=== PATIENT | male | born 1930 | race Caucasian/White ===

== ENCOUNTER → 2017-04-09 | Outpatient (CLI) | payer MEDICARE ==
--- NOTE | 2017-04-09 14:34 | BD ---
EXAMINATION TYPE: MG DEXA axial skeleton. DATE OF EXAM: 04/09/2017 COMPARISON: NONE CLINICAL HISTORY: Compression fracture per order. Height: 5 FT 5 3/4 Weight: 150 FRAX RISK QUESTIONS: Alcohol (3 or more units per day): NO Family History (Parent hip fracture): NO Glucocorticoids (More than 3mos): NO (Ex: prednisone, prednisolone, methylprednisolone, dexamethasone, and hydrocortisone). History of Fracture in Adulthood: YES Secondary Osteoporosis: 1. Type 1 Diabetes: NO 2. Hyperthyroidism: NO 3. Menopause before 45: NA 4. Malnutrition: NO 5. Chronic liver disease: NO Rheumatoid Arthritis: NO Current Tobacco Use: NO RISK FACTORS HISTORY OF: Spine Fracture: LOWER LUMBAR When: 2017 Surgery to Spine/Hip(right/left)/Wrist (right/left): YES When: 2016 HE STATES THEY PUT CEMENT IN LUMBAR AREA DONE IN [place] OCTOBER 2016 Active: YES Lost more than 2 inches in height since high school: YES MEDICATIONS: Additional Medications: BLOOD THINNER, INHALER FOR COPD Additional History: EXAM MEASUREMENTS: Bone mineral density about the R hip (g/cm2): 0.614 Bone mineral density about the L hip (g/cm2): 0.638 T Score values are as follows: -----R Neck: -3.0 -----L Neck: -2.9 -----R Total: -2.2 -----L Total: -1.7 BASELINE IMPRESSION: Osteoporosis (T Score less than -2.5) as noted by T Score values at the femoral neck level in both hi ps. There is increased fracture risk and therapy is usually indicated based on age. Re-Screen 1-2 [email or web address] NOTE: T-SCORE=SD OF THE YOUNG ADULT MEAN.
== END | disposition home or self-care (01) ==
LOC: RADBDWWP 13:13
PROVIDERS: ATTEND Family Medicine
DX: M81.0 Age-related osteoporosis without current pathological fracture (principal)
CPT/HCPCS: 77080

== ENCOUNTER 2017-05-20 16:25 | Inpatient (IN) | payer MEDICARE ==
[2017-05-20] MEDS ORDERED: SODIUM CHLORIDE 0.9% 1,000 ML IV STA (16:59)
[2017-05-20] MEDS ORDERED: IPRATROPIUM-ALBUTEROL 3 ML NEB INHALATION STA (16:59)
--- NOTE | 2017-05-20 17:05 | ED ---
Chest Pain HPI - General Chief Complaint: Chest Pain Stated Complaint: chest pain/chills Time Seen by Provider: 05/20/17 16:46 Source: patient, family, RN notes reviewed Mode of arrival: wheelchair Limitations: no limitations - History of Present Illness Initial Comments: This 86-year-old male who presents complains of shaking body aches cough shortness of breath cough of yellow and creamy colored phlegm and fever. He does A. fib was acting up as he was tachycardic. He had some repeat anterior chest pain that is resolved now. He has similar symptoms 4 days ago but they resolve the. He's had decreased oral intake. He denies any focal weakness. MD Complaint: chest pain, other - Related Data Home Medications Medication Instructions Recorded Confirmed Fluticasone/Salmeterol [Advair 1 puff INHALATION RT-BID 02/28/14 05/20/17 250-50 Diskus] Aspirin 81 mg PO Q72H 06/01/15 05/20/17 Apixaban [Eliquis] 5 mg PO BID 05/20/17 05/20/17 Allergies Allergy/AdvReac Type Severity Reaction Status Date / Time codeine Allergy Intermediate Hallucinati Verified 05/20/17 17:01 ons prednisone AdvReac agitated Verified 05/20/17 17:01 Review of Systems ROS Statement: Those systems with pertinent positive or pertinent negative responses have been documented in the HPI. ROS Other: All systems not noted in ROS Statement are negative. EKG Findings - EKG Results: EKG: interpreted by ERMD (Sinus tachycardia rate of 108 PVCs PACs noted.. Interval 172 QRS 60 QT since QTC 334/447) Past Medical History Past Medical History: Atrial Fibrillation, Cancer, COPD Additional Past Medical History / Comment(s): hypotension, , BASAL CELL SKIN CA , UTI,gastric ulcer History of Any Multi-Drug Resistant Organisms: None Reported Past Surgical History: Appendectomy, Cholecystectomy, Heart Catheterization, Pacemaker Additional Past Surgical History / Comment(s): MICHEAL CATARACTS, ULCER SX.HEMORROID SX, HAD DUAL PACEMAKER IMPLANTED (SICK SINUS SYNDROME,AV NODE DISEAE,TACHYBRADY SYNDROME. Past Anesthesia/Blood Transfusion Reactions: No Reported Reaction Type of Cardiac Device: Permanent Pacemaker Device Placement Date:: 2013 Past Psychological History: No Psychological Hx Reported Smoking Status: Former smoker Past Alcohol Use History: Rare Past Drug Use History: None Reported - Past Family History Father Family Medical History: CVA/TIA Additional Family Medical History / Comment(s): NOT SURE IF HE HAD MINI STROKES OR HEART PROBLEM. DAD AT AGE 82 Mother Family Medical History: Diabetes Mellitus Additional Family Medical History / Comment(s): AT AGE 76 General Exam - General Exam Comments Initial Comments: This is a well-developed well-nourished awake alert oriented 3 male Limitations: no limitations General appearance: alert, in no apparent distress Head exam: Present: atraumatic, normocephalic, normal inspection Eye exam: Present: normal appearance, PERRL, EOMI. Absent: scleral icterus, conjunctival injection, periorbital swelling ENT exam: Present: mucous membranes dry Neck exam: Present: normal inspection. Absent: tenderness, meningismus, lymphadenopathy Respiratory exam: Present: wheezes, accessory muscle use, decreased breath sounds Cardiovascular Exam: Present: tachycardia GI/Abdominal exam: Present: soft, normal bowel sounds. Absent: distended, tenderness, guarding, rebound, rigid Extremities exam: Present: normal inspection, full ROM, normal capillary refill. Absent: tenderness, pedal edema, joint swelling, calf tenderness Back exam: Present: normal inspection Neurological exam: Present: alert, oriented X3, CN II-XII intact Psychiatric exam: Present: normal affect, normal mood Skin exam: Present: warm, dry, intact, normal color. Absent: rash Course Vital Signs 05/20/17 05/20/17 05/20/17 16:28 16:53 17:28 Temperature 102.0 F H Pulse Rate 117 H 120 H Respiratory 20 22 22 Rate Blood Pressure 144/65 157/75 O2 Sat by Pulse 93 L 96 Oximetry 05/20/17 05/20/17 05/20/17 17:39 18:16 19:42 Temperature 100.0 F H 101.3 F H Pulse Rate 138 H 109 H 133 H Respiratory 20 18 Rate Blood Pressure 149/92 140/67 O2 Sat by Pulse 95 91 L Oximetry - Reevaluation(s) Reevaluation #1: 05/20/17 20:22 I did reevaluate patient several occasions he was breathing slightly better but still with diffuse wheezing and diminished breath sounds. Left lower lobe rhonchi. Chest Pain MDM - MDM I did review the imaging is evidence of left lower lobe infiltrate. Patient will be admitted he does have evidence of fever left lower lobe infiltrate COPD exacerbation. Critical Care Time Critical Care Time: Yes Critical Care Time: 35 minutes of critical care time which includes initial presentation with history physical labs x-rays reevaluation of the patient on several occasions for responsive therapy discussion with the patient family discussion with the admitting physician and admission orders and documentation of the above Disposition Clinical Impression: Left lower lobe pneumonia, COPD with exacerbation, Hypoxemia, Febrile illness, acute Disposition: ADMITTED IP TO THIS [facility] Condition: Stable Referrals: Francie Quiñones DO [Primary Care Provider] - 1-2 days
[2017-05-20 17:28] LABS: Basophils % (A) 0 %; CH 29.5; CHCM 34.4; Eosinophils # (A) 0.1 k/uL (0-0.7); Eosinophils % (A) 1 %; HCT 39.6 % (39.0-53.0); HDW 2.66; HGB 13.2 gm/dL (13.0-17.5); Luc # (Auto) 0.13; Luc % (Auto) 2; Lymphocytes # (A) 0.4 k/uL (1.0-4.8); Lymphocytes % (A) 5 %; MCH 28.7 pg (25.0-35.0); MCHC 33.3 g/dL (31.0-37.0); MCV 86.2 fL (80.0-100.0); Mean Platelet Volume 7.6; Monocytes # (A) 0.5 k/uL (0-1.0); Monocytes % (A) 7 %; Neutrophils # (A) 6.1 k/uL (1.3-7.7); Neutrophils % (A) 85 %; RDW 14.1 % (11.5-15.5); WBC 7.1 k/uL (3.8-10.6); WBC (Perox) 8.12
[2017-05-20 17:37] LABS: ALT 29 U/L (21-72); AST 25 U/L (17-59); Alkaline Phosphatase 47 U/L (38-126); Anion Gap 10 mmol/L; Blood Urea Nitrogen 19 mg/dL (9-20); Calcium 8.7 mg/dL (8.4-10.2); Carbon Dioxide 21 mmol/L (22-30); Chloride 103 mmol/L (98-107); Glucose 103 mg/dL (74-99); Magnesium 1.6 mg/dL (1.6-2.3); Non-African American GFR(MDRD) >60 (>60 ml/min/1.73 sqM); Potassium 3.9 mmol/L (3.5-5.1); Sodium 134 mmol/L (137-145); Total Protein 6.5 g/dL (6.3-8.2)
[2017-05-20 17:39] LABS: INR 1.1 (<1.2); Partial Thromboplastin Time 23.5 sec (22.0-30.0); Prothrombin Time 10.6 sec (9.0-12.0)
[2017-05-20 17:50] LABS: Creatine Kinase 65 U/L (55-170)
[2017-05-20] MEDS ORDERED: SODIUM CHLORIDE 0.9% 500 ML IV STA (17:59)
[2017-05-20 18:03] LABS: Creatine Kinase MB 1.1 ng/mL (0.0-2.4); Troponin I <0.012 ng/mL (0.000-0.034)
--- NOTE | 2017-05-20 19:11 | XR ---
EXAMINATION TYPE: XR chest 2V DATE OF EXAM: 05/20/2017 COMPARISON: 07/19/2015 HISTORY: Chest pain TECHNIQUE: Frontal and lateral views of the chest are obtained. FINDINGS: There is coarse interstitial density in both lungs. Heart size is normal. There is slight blunting of costophrenic angles. Thoracic aorta is atheromatous. There is a left axillary pacemaker w ith the lead tips in the right ventricle. There is mild increased density at the left diaphragm. IMPRESSION: Pulmonary fibrotic changes. No gross heart failure. Mild pleural reaction at the lung ba ses. Inspiration is improved compared to last exam. There is mild infiltrate at the left lung base th at could be new compared to last exam.
[2017-05-20] MEDS ORDERED: PNEUMONIA PROTOCOL UTILIZED 1 EACH MISC PO PRN (20:35)
[2017-05-20] MEDS ORDERED: AZITHROMYCIN 500 MG in SODIUM CHLORIDE 0.9% 250 ML IVPB STA (20:35)
--- NOTE | 2017-05-20 20:40 | ED ---
Medical Decision Making - Lab Data Result diagrams: 05/20/17 16:43 05/20/17 16:43 Lab Results 05/20/17 05/20/17 05/20/17 Range/Units 16:43 16:43 16:43 WBC 7.1 (3.8-10.6) k/uL RBC 4.60 (4.30-5.90) m/uL Hgb 13.2 (13.0-17.5) gm/dL Hct 39.6 (39.0-53.0) % MCV 86.2 (80.0-100.0) fL MCH 28.7 (25.0-35.0) pg MCHC 33.3 (31.0-37.0) g/dL RDW 14.1 (11.5-15.5) % Plt Count 171 (150-450) k/uL Neutrophils % 85 % Lymphocytes % 5 % Monocytes % 7 % Eosinophils % 1 % Basophils % 0 % Neutrophils # 6.1 (1.3-7.7) k/uL Lymphocytes # 0.4 L (1.0-4.8) k/uL Monocytes # 0.5 (0-1.0) k/uL Eosinophils # 0.1 (0-0.7) k/uL Basophils # 0.0 (0-0.2) k/uL PT (9.0-12.0) sec INR (<1.2) APTT (22.0-30.0) sec Sodium 134 L (137-145) mmol/L Potassium 3.9 (3.5-5.1) mmol/L Chloride 103 (98-107) mmol/L Carbon Dioxide 21 L (22-30) mmol/L Anion Gap 10 mmol/L BUN 19 (9-20) mg/dL Creatinine 0.85 (0.66-1.25) mg/dL Est GFR (MDRD) Af Amer >60 (>60 ml/min/1.73 sqM) Est GFR (MDRD) Non-Af >60 (>60 ml/min/1.73 sqM) Glucose 103 H (74-99) mg/dL Plasma Lactic Acid Alphonse (0.7-2.0) mmol/L Calcium 8.7 (8.4-10.2) mg/dL Magnesium 1.6 (1.6-2.3) mg/dL Total Bilirubin 2.0 H (0.2-1.3) mg/dL AST 25 (17-59) U/L ALT 29 (21-72) U/L Alkaline Phosphatase 47 (38-126) U/L Total Creatine Kinase 65 (55-170) U/L CK-MB (CK-2) 1.1 (0.0-2.4) ng/mL CK-MB (CK-2) Rel Index 1.7 Troponin I <0.012 (0.000-0.034) ng/mL NT-Pro-B Natriuret Pep pg/mL Total Protein 6.5 (6.3-8.2) g/dL Albumin 3.6 (3.5-5.0) g/dL Influenza Type A RNA (Not Detectd) Influenza Type B (PCR) (Not Detectd) 05/20/17 05/20/17 05/20/17 Range/Units 16:43 16:43 16:43 WBC (3.8-10.6) k/uL RBC (4.30-5.90) m/uL Hgb (13.0-17.5) gm/dL Hct (39.0-53.0) % MCV (80.0-100.0) fL MCH (25.0-35.0) pg MCHC (31.0-37.0) g/dL RDW (11.5-15.5) % Plt Count (150-450) k/uL Neutrophils % % Lymphocytes % % Monocytes % % Eosinophils % % Basophils % % Neutrophils # (1.3-7.7) k/uL Lymphocytes # (1.0-4.8) k/uL Monocytes # (0-1.0) k/uL Eosinophils # (0-0.7) k/uL Basophils # (0-0.2) k/uL PT 10.6 (9.0-12.0) sec INR 1.1 (<1.2) APTT 23.5 (22.0-30.0) sec Sodium (137-145) mmol/L Potassium (3.5-5.1) mmol/L Chloride (98-107) mmol/L Carbon Dioxide (22-30) mmol/L Anion Gap mmol/L BUN (9-20) mg/dL Creatinine (0.66-1.25) mg/dL Est GFR (MDRD) Af Amer (>60 ml/min/1.73 sqM) Est GFR (MDRD) Non-Af (>60 ml/min/1.73 sqM) Glucose (74-99) mg/dL Plasma Lactic Acid Alphonse 1.6 (0.7-2.0) mmol/L Calcium (8.4-10.2) mg/dL Magnesium (1.6-2.3) mg/dL Total Bilirubin (0.2-1.3) mg/dL AST (17-59) U/L ALT (21-72) U/L Alkaline Phosphatase (38-126) U/L Total Creatine Kinase (55-170) U/L CK-MB (CK-2) (0.0-2.4) ng/mL CK-MB (CK-2) Rel Index Troponin I (0.000-0.034) ng/mL NT-Pro-B Natriuret Pep 444 pg/mL Total Protein (6.3-8.2) g/dL Albumin (3.5-5.0) g/dL Influenza Type A RNA (Not Detectd) Influenza Type B (PCR) (Not Detectd) 05/20/17 Range/Units 17:23 WBC (3.8-10.6) k/uL RBC (4.30-5.90) m/uL Hgb (13.0-17.5) gm/dL Hct (39.0-53.0) % MCV (80.0-100.0) fL MCH (25.0-35.0) pg MCHC (31.0-37.0) g/dL RDW (11.5-15.5) % Plt Count (150-450) k/uL Neutrophils % % Lymphocytes % % Monocytes % % Eosinophils % % Basophils % % Neutrophils # (1.3-7.7) k/uL Lymphocytes # (1.0-4.8) k/uL Monocytes # (0-1.0) k/uL Eosinophils # (0-0.7) k/uL Basophils # (0-0.2) k/uL PT (9.0-12.0) sec INR (<1.2) APTT (22.0-30.0) sec Sodium (137-145) mmol/L Potassium (3.5-5.1) mmol/L Chloride (98-107) mmol/L Carbon Dioxide (22-30) mmol/L Anion Gap mmol/L BUN (9-20) mg/dL Creatinine (0.66-1.25) mg/dL Est GFR (MDRD) Af Amer (>60 ml/min/1.73 sqM) Est GFR (MDRD) Non-Af (>60 ml/min/1.73 sqM) Glucose (74-99) mg/dL Plasma Lactic Acid Alphonse (0.7-2.0) mmol/L Calcium (8.4-10.2) mg/dL Magnesium (1.6-2.3) mg/dL Total Bilirubin (0.2-1.3) mg/dL AST (17-59) U/L ALT (21-72) U/L Alkaline Phosphatase (38-126) U/L Total Creatine Kinase (55-170) U/L CK-MB (CK-2) (0.0-2.4) ng/mL CK-MB (CK-2) Rel Index Troponin I (0.000-0.034) ng/mL NT-Pro-B Natriuret Pep pg/mL Total Protein (6.3-8.2) g/dL Albumin (3.5-5.0) g/dL Influenza Type A RNA Not Detected (Not Detectd) Influenza Type B (PCR) Not Detected (Not Detectd) Disposition Clinical Impression: Left lower lobe pneumonia, COPD with exacerbation, Hypoxemia, Febrile illness, acute, Rapid atrial fibrillation Disposition: ADMITTED IP TO THIS HOSP Condition: Stable Referrals: Francie Quiñones DO [Primary Care Provider] - 1-2 days
[2017-05-20] MEDS: SODIUM CHLORIDE 0.9% 1,000 ML IV SCH (20:57)
[2017-05-20] MEDS ORDERED: DILTIAZEM 125 MG in SODIUM CHLORIDE 0.9% 100 ML IV SCH (21:00)
[2017-05-20] MEDS ORDERED: ACETAMINOPHEN TAB 325 MG TAB PO PRN (22:23)
[2017-05-20] MEDS: APIXABAN 5 MG TAB PO SCH (22:52)
[2017-05-20] MEDS: METOPROLOL TARTRATE 25 MG TAB PO SCH (22:52)
[2017-05-20] MEDS: methylPREDNISolone SOD SUCCI 125 MG/2 ML VIAL IV SCH (23:50)
[2017-05-20] MEDS: IPRATROPIUM-ALBUTEROL 3 ML NEB INHALATION SCH (23:57)
[2017-05-21] MEDS: IPRATROPIUM-ALBUTEROL 3 ML NEB INHALATION SCH ×6 (04:23→23:48)
[2017-05-21] MEDS: methylPREDNISolone SOD SUCCI 125 MG/2 ML VIAL IV SCH ×2 (06:21→12:20)
[2017-05-21 06:30] LABS: Glucose,Whole Blood 164 mg/dL (75-99)
[2017-05-21] MEDS: SODIUM CHLORIDE 0.9% 1,000 ML IV SCH (06:48)
[2017-05-21] MEDS: INSULIN LISPRO (humaLOG) 300 UNIT/3 ML VIAL SQ SCH ×4 (06:49→21:33)
--- NOTE | 2017-05-21 07:04 | XR ---
EXAMINATION TYPE: XR chest 2V DATE OF EXAM: 05/21/2017 COMPARISON: 05/20/2017 HISTORY: Pneumonia and shortness of breath TECHNIQUE: Frontal and lateral views of the chest are obtained. FINDINGS: There is improved aeration of the left lung base with streak-like linear subsegmental atel ectasis remaining at the lung bases and platelike horizontally oriented linear right lower lung atele ctasis. Findings are superimposed upon pulmonary hyperinflation, increased anterior posterior diamete r chest and flattening of the diaphragms compatible with underlying COPD. There is generalized osseous demineralization and vertebroplasty change of a lower thoracic vertebral body. Calcific tendinitis is noted of the right rotator cuff. No pleural effusion, focal consolidati on or pneumothorax. Dual lead left-sided cardiac device is stable as is the nonenlarged cardiac silho uette. IMPRESSION: 1. Improved aeration of the left lung base with minimal residual left basilar subsegmental atelectasi s and right basilar atelectasis. 2. Radiographic sequela of COPD.
[2017-05-21] MEDS: APIXABAN 5 MG TAB PO SCH ×2 (09:02→21:32)
[2017-05-21] MEDS: METOPROLOL TARTRATE 25 MG TAB PO SCH ×2 (09:02→21:32)
--- NOTE | 2017-05-21 09:11 | P.CRDCN ---
History of Present Illness Consult date: 05/21/17 Chief complaint: cough History of present illness: this is a pleasant 86-year-old gentleman who sees Dr. Matias as an outpatient with a past medical history significant for permanent pacemaker implantation as well as atrial fibrillation and COPD presented to the hospital not feeling well. The patient was doing some work on his furnace at the basement at home. Subsequently he was experiencing fever and chills associated with cough productive of colored sputum. He did not have any symptoms of chest pain or chest discomfort. No dizziness or lightheadedness. No syncope. The patient was admitted to the hospital with pneumonia/COPD and he is on antibiotic. We get involved in the care of the patient because he went into sinus tachycardia when he presented but he was febrile at that time. Currently the patient has been maintaining normal sinus mechanism and currently is on metoprolol by mouth. Past Medical History Past Medical History: Atrial Fibrillation, COPD Additional Past Medical History / Comment(s): hypotension, , BASAL CELL SKIN CA , UTI,gastric ulcer History of Any Multi-Drug Resistant Organisms: None Reported Past Surgical History: Appendectomy, Cholecystectomy, Heart Catheterization, Pacemaker Additional Past Surgical History / Comment(s): MICHEAL CATARACTS, ULCER SX.HEMORROID SX, HAD DUAL PACEMAKER IMPLANTED (SICK SINUS SYNDROME,AV NODE DISEAE,TACHYBRADY SYNDROME. Past Anesthesia/Blood Transfusion Reactions: No Reported Reaction Type of Cardiac Device: Permanent Pacemaker Device Placement Date:: 2013 Past Psychological History: No Psychological Hx Reported Additional Psychological History / Comment(s): Pt resides ith his spouse. He uses a cane prn-especially at nite. wn meds. takes care of medications they have visiting nurse come to the house Smoking Status: Former smoker Past Alcohol Use History: Rare Additional Past Alcohol Use History / Comment(s): STARTED SMOKING AT AGE 22 SMOKED 1 PPD. HAD QUIT ONCE FOR 1O YEARS THEN RESTARTED AFTER OF SON, QUIT 1999 Past Drug Use History: None Reported - Past Family History Father Family Medical History: CVA/TIA Additional Family Medical History / Comment(s): NOT SURE IF HE HAD MINI STROKES OR HEART PROBLEM. DAD AT AGE 82 Mother Family Medical History: Diabetes Mellitus Additional Family Medical History / Comment(s): AT AGE 76 Medications and Allergies Home Medications Medication Instructions Recorded Confirmed Type Fluticasone/Salmeterol [Advair 1 puff INHALATION RT-BID 02/28/14 05/20/17 History 250-50 Diskus] Aspirin 81 mg PO Q72H 06/01/15 05/20/17 History Apixaban [Eliquis] 5 mg PO BID 05/20/17 05/20/17 History Allergies Allergy/AdvReac Type Severity Reaction Status Date / Time codeine Allergy Intermediate Hallucinati Verified 05/20/17 17:01 ons prednisone AdvReac agitated Verified 05/20/17 17:01 Physical Exam Vitals: Vital Signs Temp Pulse Pulse Resp BP BP Pulse Ox 05/21/17 07:51 68 05/21/17 07:38 68 05/21/17 04:33 64 05/21/17 04:24 64 05/21/17 04:00 97.4 F L 63 16 100/69 94 L 05/21/17 00:00 100.1 F H 78 16 84/48 92 L 05/20/17 21:00 113 H 18 05/20/17 20:57 99.1 F 121 H 18 113/63 94 L 05/20/17 20:53 101.1 F H 113 H 16 124/59 93 L 05/20/17 20:35 93 L 05/20/17 19:42 101.3 F H 133 H 18 140/67 91 L 05/20/17 18:16 100.0 F H 109 H 20 149/92 95 05/20/17 17:39 138 H 05/20/17 17:28 120 H 22 157/75 96 05/20/17 16:53 22 05/20/17 16:28 102.0 F H 117 H 20 144/65 93 L Intake and Output 05/20/17 05/21/17 05/21/17 22:59 06:59 14:59 Intake Total 800 200 Balance 800 200 Intake: Intake, IV Titration 800 Amount Sodium Chloride 0.9% 1, 800 000 ml @ 75 mls/hr IV . [id number] STA Rx#:[id number] Oral 200 Other: Voiding Method Urinal Urinal Weight 66.678 kg 66.3 kg - Constitutional General appearance: no acute distress - Respiratory Respiratory: bilateral: rhonchi - Cardiovascular Rhythm: regular Heart sounds: normal: S1, S2 Results 05/20/17 16:43 05/20/17 16:43 Cardiac Enzymes 05/20/17 05/20/17 Range/Units 16:43 16:43 AST 25 (17-59) U/L CK-MB (CK-2) 1.1 (0.0-2.4) ng/mL Troponin I <0.012 (0.000-0.034) ng/mL Coagulation 05/20/17 Range/Units 16:43 PT 10.6 (9.0-12.0) sec APTT 23.5 (22.0-30.0) sec CBC 05/20/17 Range/Units 16:43 WBC 7.1 (3.8-10.6) k/uL RBC 4.60 (4.30-5.90) m/uL Hgb 13.2 (13.0-17.5) gm/dL Hct 39.6 (39.0-53.0) % Plt Count 171 (150-450) k/uL Comprehensive Metabolic Panel 05/20/17 Range/Units 16:43 Sodium 134 L (137-145) mmol/L Potassium 3.9 (3.5-5.1) mmol/L Chloride 103 (98-107) mmol/L Carbon Dioxide 21 L (22-30) mmol/L BUN 19 (9-20) mg/dL Creatinine 0.85 (0.66-1.25) mg/dL Glucose 103 H (74-99) mg/dL Calcium 8.7 (8.4-10.2) mg/dL AST 25 (17-59) U/L ALT 29 (21-72) U/L Alkaline Phosphatase 47 (38-126) U/L Total Protein 6.5 (6.3-8.2) g/dL Albumin 3.6 (3.5-5.0) g/dL Current Medications Generic Name Dose Route Start Last Admin Trade Name Freq PRN Reason Stop Dose Admin Acetaminophen 650 mg 05/20/17 22:23 05/20/17 22:52 Tylenol Tab PO 650 mg Q4HR PRN Administration Fever and/ or Mild Pain Albuterol/Ipratropium 3 ml 05/21/17 00:00 05/21/17 07:37 Duoneb 0.5 Mg-3 Mg/3 Ml Soln INHALATION 3 ml RT-Q4H RYAN Administration Apixaban 5 mg 05/20/17 21:00 05/21/17 09:02 Eliquis PO 5 mg BID RYAN Administration Aspirin 81 mg 05/22/17 09:00 Aspirin PO Q72H RYAN Azithromycin 500 mg 05/21/17 21:00 Zithromax PO HS RYAN Ceftriaxone Sodium 1,000 mg/ 50 mls @ 100 mls/hr 05/21/17 21:00 Sodium Chloride IVPB 05/24/17 21:01 Q24H RYAN Sodium Chloride 1,000 mls @ 100 mls/hr 05/20/17 20:45 05/21/17 06:48 Saline 0.9% IV Not Given .Q10H RYAN Insulin Human Lispro 0 unit 05/21/17 07:30 05/21/17 06:49 Humalog SQ 3 unit ACHS RYAN Administration Protocol Methylprednisolone Sodium Succinate 60 mg 05/21/17 00:00 05/21/17 06:21 Solu-Medrol IV 60 mg Q6HR RYAN Administration Metoprolol Tartrate 25 mg 05/20/17 22:30 05/21/17 09:02 Lopressor PO 25 mg BID RYAN Administration Miscellaneous Information 1 each 05/20/17 20:35 Pneumonia Protocol Utilized PO ONCE PRN Per Protocol Intake and Output 05/20/17 05/21/17 05/21/17 22:59 06:59 14:59 Intake Total 800 200 Balance 800 200 Intake: Intake, IV Titration 800 Amount Sodium Chloride 0.9% 1, 800 000 ml @ 75 mls/hr IV . [id number] STA Rx#:[id number] Oral 200 Other: Voiding Method Urinal Urinal Weight 66.678 kg 66.3 kg 05/20/17 16:43 05/20/17 16:43 Assessment and Plan Assessment: This is an 86-year-old gentleman with permanent pacemaker implantation and paroxysmal A. fib for patient on anticoagulation presented to the hospital with symptoms of fever, chills, and productive cough. He was tachycardic in sinus tachycardia but currently his heart rate has improved on the current dose of metoprolol. From the cardiovascular standpoint of view, I would continue the metoprolol by mouth. Continue anticoagulation. And continue following up with him. We'll adjust the dose of metoprolol if the heart rate goes fast again. Thank you for allowing us participate in his care
[2017-05-21 11:50] LABS: Glucose,Whole Blood 222 mg/dL (75-99)
--- NOTE | 2017-05-21 13:42 | P.CNPUL ---
History of Present Illness Consult date: 05/21/17 Reason for consult: dyspnea History of present illness: A pleasant 86-year-old male patient who is been having increased cough and chest congestion and production of thick yellowish sputum over the past few days. The patient contacted his primary care physician and he was asked to come in to the hospital for further evaluation. Chest x-ray at time of admission showed questionable limited infiltration of the left lung base and the patient was hospitalized for treatment of an acute pneumonia. He has no change in mental status. No nausea or vomiting. No pleurisy or hemoptysis. No hypotension. No signs of any septicemia. Follow-up chest x-ray from today shows no acute abnormalities. He is on accommodation Rocephin and Zithromax. He is also on systemic steroids. He is known to have COPD. No 70 bronchial asthma. No oxygen dependence. No angina. No swelling lower extremities. Denies having any recurrent pneumonias. No aspiration. He is known to have chronic atrial fibrillation. He is undergone a previous pacemaker insertion also. Review of Systems Constitutional: Reports chills Eyes: denies blurred vision, denies bulging eye, denies decreased vision Ears: deny: ear discharge, earache, tinnitus Ears, nose, mouth and throat: Denies headache, Denies sore throat Cardiovascular: Reports irregular heart beat, Reports rapid heart beat Respiratory: Reports cough, Reports dyspnea, Reports wheezing Gastrointestinal: Denies abdominal pain, Denies diarrhea, Denies nausea, Denies vomiting Musculoskeletal: Denies myalgias Musculoskeletal: absent: ankle pain, ankle stiffness, ankle swelling, as per HPI Integumentary: Denies pruritus, Denies rash Neurological: Denies numbness, Denies weakness Psychiatric: Denies anxiety, Denies depression Endocrine: Denies fatigue, Denies weight change Past Medical History Past Medical History: Atrial Fibrillation, COPD Additional Past Medical History / Comment(s): COPD, chronic atrial fibrillation , 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 History of Any Multi-Drug Resistant Organisms: None Reported Past Surgical History: Appendectomy, Cholecystectomy, Heart Catheterization, Pacemaker Additional Past Surgical History / Comment(s): MICHEAL CATARACTS, ULCER SX.HEMORROID SX, HAD DUAL PACEMAKER IMPLANTED (SICK SINUS SYNDROME,AV NODE DISEAE,TACHYBRADY SYNDROME. Past Anesthesia/Blood Transfusion Reactions: No Reported Reaction Type of Cardiac Device: Permanent Pacemaker Device Placement Date:: 2013 Past Psychological History: No Psychological Hx Reported Additional Psychological History / Comment(s): Pt resides ith his spouse. He uses a cane prn-especially at nite. wn meds. takes care of medications they have visiting nurse come to the house Smoking Status: Former smoker Past Alcohol Use History: Rare Additional Past Alcohol Use History / Comment(s): STARTED SMOKING AT AGE 22 SMOKED 1 PPD. HAD QUIT ONCE FOR 1O YEARS THEN RESTARTED AFTER OF SON, QUIT 1999 Past Drug Use History: None Reported - Past Family History Father Family Medical History: CVA/TIA Additional Family Medical History / Comment(s): NOT SURE IF HE HAD MINI STROKES OR HEART PROBLEM. DAD AT AGE 82 Mother Family Medical History: Diabetes Mellitus Additional Family Medical History / Comment(s): AT AGE 76 Medications and Allergies Home Medications Medication Instructions Recorded Confirmed Type Fluticasone/Salmeterol [Advair 1 puff INHALATION RT-BID 02/28/14 05/20/17 History 250-50 Diskus] Aspirin 81 mg PO Q72H 06/01/15 05/20/17 History Apixaban [Eliquis] 5 mg PO BID 05/20/17 05/20/17 History Allergies Allergy/AdvReac Type Severity Reaction Status Date / Time codeine Allergy Intermediate Hallucinati Verified 05/20/17 17:01 ons prednisone AdvReac agitated Verified 05/20/17 17:01 Physical Exam Vitals: Vital Signs Temp Pulse Pulse Resp BP BP Pulse Ox 05/21/17 13:29 76 05/21/17 13:15 80 05/21/17 12:00 96.9 F L 72 18 112/57 97 05/21/17 08:00 96.6 F L 75 18 109/56 91 L 05/21/17 07:51 68 05/21/17 07:38 68 05/21/17 04:33 64 05/21/17 04:24 64 05/21/17 04:00 97.4 F L 63 16 100/69 94 L 05/21/17 00:00 100.1 F H 78 16 84/48 92 L 05/20/17 21:00 113 H 18 05/20/17 20:57 99.1 F 121 H 18 113/63 94 L 05/20/17 20:53 101.1 F H 113 H 16 124/59 93 L 05/20/17 20:35 93 L 05/20/17 19:42 101.3 F H 133 H 18 140/67 91 L 05/20/17 18:16 100.0 F H 109 H 20 149/92 95 05/20/17 17:39 138 H 05/20/17 17:28 120 H 22 157/75 96 05/20/17 16:53 22 05/20/17 16:28 102.0 F H 117 H 20 144/65 93 L Intake and Output 05/20/17 05/21/17 05/21/17 22:59 06:59 14:59 Intake Total 800 200 740 Output Total 351 Balance 800 200 389 Intake: Intake, IV Titration 800 500 Amount Sodium Chloride 0.9% 1, 500 000 ml @ 100 mls/hr IV . Q10H RYAN Rx#:[id number] Sodium Chloride 0.9% 1, 800 000 ml @ 75 mls/hr IV . [id number] STA Rx#:[id number] Oral 200 240 Output: Urine 350 Stool 1 Other: Voiding Method Urinal Urinal Urinal # Voids 1 # Bowel Movements 1 Weight 66.678 kg 66.3 kg 66.3 kg Patient Weight 05/22/17 06:59 Weight 66.3 kg The patient is an elderly male, nonacute distress, resting comfortably in bed.Head exam was generally normal. There was no scleral icterus or corneal arcus. Mucous membranes were moist.Neck was supple and without jugular venous distension, thyromegaly, or carotid bruits. Carotids were easily palpable bilaterally. There was no adenopathy. Lung sounds are diminished in the lung bases bilaterally along with some scattered rhonchi. Heart sounds are irregular , positive S1-S2 and there is no significant murmurs appreciated.Abdominal exam revealed normal bowel sounds. The abdomen was soft, non-tender, and without masses, organomegaly, or appreciable enlargement of the abdominal aorta.Examination of the extremities revealed easily palpable radial, femoral and pedal pulses. There was no cyanosis, clubbing or edema.Examination of the skin revealed no evidence of significant rashes, suspicious appearing nevi or other concerning lesions. Neurologically the patient is awake and alert and is no focal neurological deficit at this point. Results - Laboratory Findings CBC and BMP: 05/20/17 16:43 05/20/17 16:43 PT/INR, D-dimer PT 10.6 sec (9.0-12.0) 05/20/17 16:43 INR 1.1 (<1.2) 05/20/17 16:43 Abnormal lab findings: Abnormal Labs 05/20/17 05/20/17 05/21/17 16:43 16:43 06:20 Lymphocytes # 0.4 L Sodium 134 L Carbon Dioxide 21 L Glucose 103 H POC Glucose (mg/dL) 164 H Total Bilirubin 2.0 H 05/21/17 11:34 Lymphocytes # Sodium Carbon Dioxide Glucose POC Glucose (mg/dL) 222 H Total Bilirubin - Diagnostic Findings Chest x-ray: image reviewed Assessment and Plan Assessment: Assessment 1 acute tracheal bronchitis with exacerbation of COPD. Limited left lower lobe pneumonia suspected 2 chronic atrial fibrillation 3 history of tachybradycardia syndrome status post pacemaker insertion 4 basal cell carcinoma of the skin, resected 5 history of peptic ulcer disease Plan Agree on the current management. The patient is stable. He is actually taking well on room air. No signs of any significant respiratory distress. Follow-up chest x-rays clear. Anticipate discharge within the next 24-48 hours and oral antibiotics and the prednisone burst taper. He has been maintained on Advair on outpatient basis as maintenance for COPD. We'll continue to follow.
--- NOTE | 2017-05-21 15:12 | HP ---
HISTORY AND PHYSICAL DATE OF SERVICE: 05/21/2017 CHIEF COMPLAINTS: Fever, chills, shortness of breath. HISTORY OF PRESENT ILLNESS: This 86-year-old gentleman with a past medical history of multiple medical problems including atrial fibrillation, COPD, history of appendectomy, cholecystectomy being followed by Dr. Ortiz in the outpatient setting, not feeling well. On Friday , the patient had history of chills and subsequently patient decided not to come to the hospital, took some aspirin, but patient had fever, cough and some chills also. Yesterday, the patient came to [facility] Emergency room, admitted for further evaluation and treatment. Patient was suspected to have left lower pneumonia. Patient started on broad-spectrum IV antibiotics and patient also had tachycardia which is thought to be atrial fibrillation with _. Subsequently, Cardiology is concerned with the possibility of sinus tach with PVCs at this time. Otherwise, there is no history of any weight loss. No history of any hematochezia or melena, headache , loss of consciousness. Patient is hard of hearing. PAST MEDICAL HISTORY: History of CAD, atrial ablation, COPD, history of basal cell carcinoma of the skin, history of appendectomy, cholecystectomy. MEDICATIONS: Prior to admission include: 1. Advair 250/50 one puff b.i.d. 2. Aspirin 81 mg q.72 hours. 3. Eliquis 5 mg p.o. b.i.d. ALLERGIES: CODEINE and PREDNISONE. FAMILY HISTORY: History of CVA/TIA in the family. SOCIAL HISTORY: History of smoking. No history of current smoke or alcohol intake. REVIEW OF SYSTEMS: ENT: No diminished vision. CARDIOVASCULAR: As mentioned earlier. RESPIRATORY: As mentioned earlier. GI: No nausea. : No dysuria. NERVOUS SYSTEM: No numbness or weakness. ALLERGY/IMMUNOLOGY: No asthma or hayfever. MUSCULOSKELETAL: As mentioned earlier. HEMATOLOGY/ONCOLOGY: No history of anemia. ENDOCRINE: No history of diabetes, hypothyroidism. CONSTITUTIONAL: As mentioned earlier. DERMATOLOGY: Negative. RHEUMATOLOGY: Negative. PSYCHIATRY: As mentioned earlier. PHYSICAL EXAM: Patient is alert and oriented x3. The pulse is 72, blood pressure is 112/51, respiration 18, temperature 98.9, pulse ox 97% on room air. HEENT: Conjunctivae normal, otherwise hearing deficits present. NECK: No lymph node enlargement. No thyroid nodule. CARDIOVASCULAR SYSTEM: S1, S2, muffled. No S3, no S4. RESPIRATORY: Breath sounds diminished at the bases. Bilateral scattered rhonchi , a few crackles also heard. ABDOMEN: Soft, nontender. No mass palpable. LEGS: No edema, no swelling. NERVOUS SYSTEM: Higher functions as mentioned earlier. Moves all four limbs. No focal motor deficits. LYMPHATICS: No lymph node enlargement in neck or axillae. SKIN: No ulcers, rash, bleeding. LABS: CBC within normal limits, sodium 134. Glucose noted. negative. Otherwise, chest x-ray official report shows improved aeration of the left lung base with atelectasis. ASSESSMENT: 1. Acute left lobe pneumonia possibly bronchopneumonia with gram-negative. 2. Chronic obstructive pulmonary disease. 3. Atrial fibrillation. 4. On Eliquis. 5. History of basal cell carcinoma of the skin. 6. History of tachybrady syndrome. 7. History of cholecystectomy. 8. History of appendectomy. 9. History of bilateral cataracts. 10.History of sick sinus syndrome with pacemaker implantation. RECOMMENDATION: In this 86-year-old gentleman who presented with multiple complex medical issues , will monitor the patient closely, continue with the current management and symptomatic treatment. Otherwise, at this time I recommend continue with broad-spectrum IV antibiotics. I would recommend Rocephin and as well as Zithromax combination. Otherwise, monitor the blood sugars. Otherwise, I would also recommend resume the home medications. Guarded prognosis because of multiple complex medical issues. Further recommendations to follow. A copy of this will be forwarded to Dr. Ortiz who is the primary physician. MMDANOL / IJN: [id number] / RITA
[2017-05-21] MEDS: methylPREDNISolone SOD SUCCI 40 MG/ML 1 ML VIAL IV SCH ×2 (16:02→22:58)
[2017-05-21 16:53] LABS: Glucose,Whole Blood 144 mg/dL (75-99)
[2017-05-21] MEDS: SYMBICORT 80-4.5 MCG INHALER INHALATION SCH (20:30)
[2017-05-21] MEDS ORDERED: AZITHROMYCIN 500 MG TAB PO SCH (21:00)
[2017-05-21 21:13] LABS: Glucose,Whole Blood 234 mg/dL (75-99)
[2017-05-22] MEDS: IPRATROPIUM-ALBUTEROL 3 ML NEB INHALATION SCH ×3 (03:07→11:52)
[2017-05-22] MEDS ORDERED: IPRATROPIUM-ALBUTEROL 3 ML NEB INHALATION PRN (03:07)
[2017-05-22 06:23] LABS: Glucose,Whole Blood 177 mg/dL (75-99)
[2017-05-22] MEDS: INSULIN LISPRO (humaLOG) 300 UNIT/3 ML VIAL SQ SCH ×2 (06:26→11:40)
[2017-05-22 07:01] LABS: Basophils % (A) 0 %; CH 29.8; CHCM 34.1; Eosinophils % (A) 0 %; HCT 36.3 % (39.0-53.0); HDW 2.95; HGB 11.9 gm/dL (13.0-17.5); Luc # (Auto) 0.07; Luc % (Auto) 1; Lymphocytes # (A) 0.4 k/uL (1.0-4.8); Lymphocytes % (A) 4 %; MCH 28.9 pg (25.0-35.0); MCHC 32.8 g/dL (31.0-37.0); Mean Platelet Volume 8.1; Monocytes # (A) 0.6 k/uL (0-1.0); Monocytes % (A) 5 %; Neutrophils # (A) 11.2 k/uL (1.3-7.7); Neutrophils % (A) 91 %; RBC 4.12 m/uL (4.30-5.90); RDW 13.3 % (11.5-15.5); WBC 12.4 k/uL (3.8-10.6); WBC (Perox) 12.42
[2017-05-22 07:47] LABS: Anion Gap 10 mmol/L; Blood Urea Nitrogen 21 mg/dL (9-20); Carbon Dioxide 23 mmol/L (22-30); Chloride 105 mmol/L (98-107); Glucose 162 mg/dL (74-99); Non-African American GFR(MDRD) >60 (>60 ml/min/1.73 sqM); Sodium 138 mmol/L (137-145)
[2017-05-22] MEDS: METOPROLOL TARTRATE 25 MG TAB PO SCH (08:11)
[2017-05-22] MEDS: APIXABAN 5 MG TAB PO SCH (08:11)
[2017-05-22] MEDS: methylPREDNISolone SOD SUCCI 40 MG/ML 1 ML VIAL IV SCH (08:11)
[2017-05-22] MEDS: SYMBICORT 80-4.5 MCG INHALER INHALATION SCH (08:30)
[2017-05-22] MEDS ORDERED: ASPIRIN 81 MG PO SCH (09:00)
--- NOTE | 2017-05-22 09:59 | P.PN ---
Progress Note - Text Progress Note Date: 05/22/17 this is a pleasant 86-year-old gentleman who sees Dr. Matias as an outpatient with a past medical history significant for permanent pacemaker implantation as well as atrial fibrillation and COPD presented to the hospital not feeling well. The patient was doing some work on his furnace at the basement at home. Subsequently he was experiencing fever and chills associated with cough productive of colored sputum. He did not have any symptoms of chest pain or chest discomfort. No dizziness or lightheadedness. No syncope. The patient was admitted to the hospital with pneumonia/COPD and he is on antibiotic. We get involved in the care of the patient because he went into sinus tachycardia when he presented but he was febrile at that time. Currently the patient has been maintaining normal sinus mechanism and currently is on metoprolol by mouth. From a cardiovascular standpoint of view, the patient is feeling better and he is hemodynamically stable. He can be discharged home.
[2017-05-22 11:06] VITALS: BMI 23.2
[2017-05-22 11:39] VITALS: BP 125/59; PULSE 73; RESP 18; TEMP 97
[2017-05-22 11:42] LABS: Glucose,Whole Blood 108 mg/dL (75-99)
[2017-05-22] MEDS ORDERED: MULTIVITAMINS, THERA 1 EACH TAB PO SCH (12:00)
--- NOTE | 2017-05-22 15:03 | P.HPIM ---
History of Present Illness patient is a pleasant 64-year-old gentleman was sent in from [place] with the confusion. Patient last drinkwas about 3 days ago patient was admitted to [place] patient drinks too many beers his face. Patient was admitted with the concerns of Wernicke's encephalopathy, patient does not have any ophthalmoplegia but patient does have truncal ataxia patient was on high-dose of thiamine which is appropriate and neurology was consulted. Patient doesn't have any significant withdrawals but quite weak unable to discharge him back to [place] because of his weakness quite unsteady patient is on Ativan withdrawal protocol patient denied any fever, chills, nausea, vomiting Review of Systems REVIEW OF SYSTEMS: CONSTITUTIONAL: No fever, no malaise, no fatigue. HEENT: No recent visual problems or hearing problems. Denied any sore throat. CARDIOVASCULAR: No chest pain, orthopnea, PND, no palpitations, no syncope. PULMONARY: No shortness of breath, no cough, no hemoptysis. GASTROINTESTINAL: No diarrhea, no nausea, no vomiting, no abdominal pain. Normoactive bowel sounds. NEUROLOGICAL: No headaches, as mentioned in HPI HEMATOLOGICAL: Denies any bleeding or petechiae. GENITOURINARY: Denies any burning micturition, frequency, or urgency. MUSCULOSKELETAL/RHEUMATOLOGICAL: Denies any joint pain, swelling, or any muscle pain. ENDOCRINE: Denies any polyuria or polydipsia. The rest of the 14-point review of systems is negative. 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 History of Any Multi-Drug Resistant Organisms: None Reported Past Surgical History: Appendectomy, Cholecystectomy, Heart Catheterization, Pacemaker Additional Past Surgical History / Comment(s): MICHEAL CATARACTS, ULCER SX.HEMORROID SX, HAD DUAL PACEMAKER IMPLANTED (SICK SINUS SYNDROME,AV NODE DISEAE,TACHYBRADY SYNDROME. Past Anesthesia/Blood Transfusion Reactions: No Reported Reaction Type of Cardiac Device: Permanent Pacemaker Device Placement Date:: 2013 Past Psychological History: No Psychological Hx Reported Additional Psychological History / Comment(s): Pt resides ith his spouse. He uses a cane prn-especially at nite. wn meds. takes care of medications they have visiting nurse come to the house Smoking Status: Former smoker Past Alcohol Use History: Rare Additional Past Alcohol Use History / Comment(s): STARTED SMOKING AT AGE 22 SMOKED 1 PPD. HAD QUIT ONCE FOR 1O YEARS THEN RESTARTED AFTER OF SON, QUIT 1999 Past Drug Use History: None Reported - Past Family History Father Family Medical History: CVA/TIA Additional Family Medical History / Comment(s): NOT SURE IF HE HAD MINI STROKES OR HEART PROBLEM. DAD AT AGE 82 Mother Family Medical History: Diabetes Mellitus Additional Family Medical History / Comment(s): AT AGE 76 Medications and Allergies Home Medications Medication Instructions Recorded Confirmed Type Fluticasone/Salmeterol [Advair 1 puff INHALATION RT-BID 02/28/14 05/20/17 History 250-50 Diskus] Aspirin 81 mg PO Q72H 06/01/15 05/20/17 History Apixaban [Eliquis] 5 mg PO BID 05/20/17 05/20/17 History Azithromycin [Zithromax Tri-Ralf] 500 mg PO DAILY #7 tab 05/22/17 Rx Cefuroxime Axetil [Ceftin] 500 mg PO BID #14 tab 05/22/17 Rx Ipratropium-Albuterol Nebulize 3 ml INHALATION RT-QID #120 05/22/17 Rx [Duoneb 0.5 mg-3 mg/3 ml Soln] ampul.neb Metoprolol Tartrate [Lopressor] 25 mg PO BID #60 tab 05/22/17 Rx Multivitamins, Thera [Multivitamin 1 each PO DAILY@1200 #30 tab 05/22/17 Rx (formulary)] predniSONE 10 mg PO DIRECTED #30 tab 05/22/17 Rx Allergies Allergy/AdvReac Type Severity Reaction Status Date / Time codeine Allergy Intermediate Hallucinati Verified 05/20/17 17:01 ons prednisone AdvReac agitated Verified 05/20/17 17:01 Physical Exam Vitals: Vital Signs Temp Pulse Pulse Resp BP Pulse Ox 05/22/17 11:38 97.0 F L 73 18 125/59 94 L 05/22/17 08:43 88 05/22/17 08:32 88 05/22/17 08:00 86 16 05/22/17 06:23 97.8 F 86 16 109/55 92 L 05/21/17 23:58 85 05/21/17 23:48 86 05/21/17 20:43 102 H 05/21/17 20:33 124 H 05/21/17 20:00 98.9 F 101 H 18 111/58 94 L 05/21/17 16:33 84 05/21/17 16:22 88 05/21/17 15:32 98.6 F 77 18 116/58 92 L 05/21/17 15:23 72 18 Intake and Output 05/21/17 05/22/17 05/22/17 22:59 06:59 14:59 Intake Total 480 300 720 Output Total 301 400 Balance 179 300 320 Intake: Oral 480 300 720 Output: Urine 300 400 Stool 1 Other: Voiding Method Urinal Urinal # Voids 1 1 1 # Bowel Movements 1 Weight 67.3 kg 67.3 kg Patient Weight 05/23/17 06:59 Weight 67.3 kg PHYSICAL EXAMINATION: GENERAL: The patient is alert and oriented x3, not in any acute distress. Well developed, well nourished. little bit tremulous HEENT: Pupils are round and equally reacting to light. EOMI. No scleral icterus. No conjunctival pallor. Normocephalic, atraumatic. No pharyngeal erythema. No thyromegaly. CARDIOVASCULAR: S1 and S2 present. No murmurs, rubs, or gallops. PULMONARY: Chest is clear to auscultation, no wheezing or crackles. ABDOMEN: Soft, nontender, nondistended, normoactive bowel sounds. No palpable organomegaly. MUSCULOSKELETAL: No joint swelling or deformity. EXTREMITIES: No cyanosis, clubbing, or pedal edema. NEUROLOGICAL: patient has unstable gait truncal ataxia and weakness SKIN: No rashes. Results CBC & Chem 7: 05/22/17 06:45 05/22/17 06:45 Labs: Abnormal Lab Results - Last 24 Hours (Table) 05/21/17 05/21/17 05/22/17 Range/Units 16:41 21:10 06:20 WBC (3.8-10.6) k/uL RBC (4.30-5.90) m/uL Hgb (13.0-17.5) gm/dL Hct (39.0-53.0) % Neutrophils # (1.3-7.7) k/uL Lymphocytes # (1.0-4.8) k/uL BUN (9-20) mg/dL Glucose (74-99) mg/dL POC Glucose (mg/dL) 144 H 234 H 177 H (75-99) mg/dL 05/22/17 05/22/17 05/22/17 Range/Units 06:45 06:45 11:39 WBC 12.4 H (3.8-10.6) k/uL RBC 4.12 L (4.30-5.90) m/uL Hgb 11.9 L (13.0-17.5) gm/dL Hct 36.3 L (39.0-53.0) % Neutrophils # 11.2 H (1.3-7.7) k/uL Lymphocytes # 0.4 L (1.0-4.8) k/uL BUN 21 H (9-20) mg/dL Glucose 162 H (74-99) mg/dL POC Glucose (mg/dL) 108 H (75-99) mg/dL Microbiology - Last 24 Hours (Table) 05/21/17 09:07 Gram Stain - Preliminary Sputum Sputum Culture - Preliminary 05/20/17 16:43 Blood Culture - Preliminary Blood No Growth after 24 hours Thrombosis Risk Factor Assmnt - Choose All That Apply Each Factor Represents 1 point: Abnormal pulmonary function (COPD) Other Risk Factors: No Other congenital or acquired thrombophilia - If yes, enter type in comment: No Thrombosis Risk Factor Assessment Total Risk Factor Score: 1 Thrombosis Risk Factor Assessment Level: Low Risk Assessment and Plan Plan: #1 alcohol abuse and alcohol withdrawal: Patient on alcohol withdrawal protocol. Last drink was about 3 days ago. #2 possibility of Wernicke's encephalopathy: Neurology was consulted and patient is on high-dose thiamine. #3 hyperchloremia and noniron gap metabolic acidosis secondary to hyperchloremia from IV fluids because of which patient will be switched to half- normal saline. 4 chronic systolic dysfunction, patient had EF of 45% in the past with without any acute exacerbation patient was evaluated cardiology #5 gastroesophageal reflux disease
--- NOTE | 2017-05-22 17:23 | P.DS ---
Providers Date of admission: 05/20/17 20:34 Attending physician: Murali Srinivasan Consults: 05/20/17 20:35 Consult Physician Routine Consulting Provider: Esvin Gould Consult Reason/Comments: COPD and pneumonia Do you want consulting provider notified?: Yes 05/21/17 06:00 Consult Physician Routine Consulting Provider: Sally Hensley Consult Reason/Comments: Increased heart rate Do you want consulting provider notified?: Yes, Notify in am Primary care physician: Francie [facility] Course: 6-year-old gentleman was admitted with the features of possibly bronchopneumonia.. Patient. Patient was treated with steroids patient improved significantly. Patient be discharged in a stable condition with guarded prognosis. On exam vitals stable cardio S1 and S2 normal. Respirator system few scattered rhonchi abdomen soft nontender. Next Final diagnosis 1. Acute left lower lobe pneumonia possibly bronchopneumonia with gram- negative. 2. COPD 3. Atrial fibrillation 4. History of basal cell carcinoma skin Patient Condition at Discharge: Stable Plan - Discharge Summary Discharge Rx Participant: No New Discharge Prescriptions: New Metoprolol Tartrate [Lopressor] 25 mg PO BID #60 tab Multivitamins, Thera [Multivitamin (formulary)] 1 each PO DAILY@1200 #30 tab predniSONE 10 mg PO DIRECTED #30 tab Ipratropium-Albuterol Nebulize [Duoneb 0.5 mg-3 mg/3 ml Soln] 3 ml INHALATION RT-QID #120 ampul.neb Azithromycin [Zithromax Tri-Ralf] 500 mg PO DAILY #7 tab Cefuroxime Axetil [Ceftin] 500 mg PO BID #14 tab Continue Fluticasone/Salmeterol [Advair 250-50 Diskus] 1 puff INHALATION RT-BID Aspirin 81 mg PO Q72H Apixaban [Eliquis] 5 mg PO BID Discharge Medication List Fluticasone/Salmeterol [Advair 250-50 Diskus] 1 puff INHALATION RT-BID 02/28/14 [History] Aspirin 81 mg PO Q72H 06/01/15 [History] Apixaban [Eliquis] 5 mg PO BID 05/20/17 [History] Azithromycin [Zithromax Tri-Ralf] 500 mg PO DAILY #7 tab 05/22/17 [Rx] Cefuroxime Axetil [Ceftin] 500 mg PO BID #14 tab 05/22/17 [Rx] Ipratropium-Albuterol Nebulize [Duoneb 0.5 mg-3 mg/3 ml Soln] 3 ml INHALATION RT -QID #120 ampul.neb 05/22/17 [Rx] Metoprolol Tartrate [Lopressor] 25 mg PO BID #60 tab 05/22/17 [Rx] Multivitamins, Thera [Multivitamin (formulary)] 1 each PO DAILY@1200 #30 tab 09/06 [Rx] predniSONE 10 mg PO DIRECTED #30 tab 05/22/17 [Rx] Follow up Appointment(s)/Referral(s): Duy Matias MD [STAFF PHYSICIAN] - 06/11/17 11:00 am (per pt's previously scheduled appointment) Francie Quiñones DO [Primary Care Provider] - 3 Days (Unable to get through related to "heavy calling." Please call to make appointment) Tio Giron MD [STAFF PHYSICIAN] - 06/11/17 2:00 pm () Ambulatory/Diagnostic Orders: Complete Blood Count w/diff [LAB.AMB] Time Frame: 3 Days, Location: Determined By Patient Patient Instructions/Handouts: COPD (Chronic Obstructive Pulmonary Disease) (DC ) Activity/Diet/Wound Care/Special Instructions: Diet: Cardiac Activity: Limited until follow up Discharge Disposition: HOME SELF-CARE
== END 2017-05-22 13:26 | disposition home or self-care (01) | DRG 178 ==
LOC: EC 16:25 → 6SEL 20:34
PROVIDERS: ADMIT Internal Medicine; ATTEND Internal Medicine
DX: J15.6 Pneumonia due to other Gram-negative bacteria (principal); J44.0 Chronic obstructive pulmonary disease with (acute) lower respiratory infection; E87.2 Acidosis; E87.8 Other disorders of electrolyte and fluid balance, not elsewhere classified; J44.1 Chronic obstructive pulmonary disease with (acute) exacerbation; I48.0 Paroxysmal atrial fibrillation; I25.10 Atherosclerotic heart disease of native coronary artery without angina pectoris; R09.02 Hypoxemia; H91.90 Unspecified hearing loss, unspecified ear; Z79.01 Long term (current) use of anticoagulants; Z79.82 Long term (current) use of aspirin; Z79.51 Long term (current) use of inhaled steroids; Z85.828 Personal history of other malignant neoplasm of skin; Z90.49 Acquired absence of other specified parts of digestive tract; Z87.891 Personal history of nicotine dependence; Z95.0 Presence of cardiac pacemaker; Z98.42 Cataract extraction status, left eye; Z87.11 Personal history of peptic ulcer disease; Z98.41 Cataract extraction status, right eye; Z88.5 Allergy status to narcotic agent; Z88.8 Allergy status to other drugs, medicaments and biological substances
CPT/HCPCS: 36415; 71020; 80048; 80053; 82550; 82553; 83605; 83735; 83880; 84484; 85025; 85610; 85730; 87040; 87070; 87205; 87502; 93005; 94640; 96360; 96361; 99291

== ENCOUNTER → 2017-09-26 | Outpatient (CLI) | payer MEDICARE ==
--- NOTE | 2017-09-26 13:30 | CT ---
EXAMINATION TYPE: CT lumbar spine wo con DATE OF EXAM: 09/26/2017 1:12 PM COMPARISON: NONE HISTORY: Back pain, s/p back surgery CT DLP: 992 mGycm Automated exposure control for dose reduction was used. Unenhanced CT of the lumbar spine was performed. Bone and soft tissue window settings are submitted as well as coronal and sagittal reconstructions. There is a severe compression deformity or fracture of L1 with evidence of previous vertebroplasty. T here is a small amount of vertebroplasty material appear essentially to left within the spinal canal. Due to artifact resolution of the thecal sac and spinal cord is nondiagnostic. Recommend MRI. There is a moderate to severe superior endplate compression fracture L2 and a mild superior endplate compression fracture of L3. Alignment is anatomic. Hypodensity within the liver is too small to characterize. L1-L2: Normal disc space height. No disc herniation protrusion or central stenosis. No facet joint arthropathy. No evidence for foraminal encroachment. L2-L3: Normal disc space height. No disc herniation protrusion or central stenosis. No facet joint arthropathy. No evidence for foraminal encroachment. L3-L4: There is hypertrophic change of the facets and ligamentum flavum with circumferential disc bul ging. Mild bilateral foraminal encroachment. Borderline canal stenosis. L4-L5: Circumferential disc bulging greater paracentrally and laterally to the right with mild to mod erate right foraminal encroachment and mild left foraminal encroachment. Hypertrophic change of the f acet joints are noted and there is borderline to mild central stenosis. L5-S1: Facet arthropathy but no obvious canal stenosis. Neural foramina remain patent. No disc hernia tion. IMPRESSION: 1. Multilevel mild degenerative disc disease with severe complete compression fracture of L1 with manuel dence of previous vertebroplasty. Artifact from vertebral plasty material limits assessment of the sp inal cord. There does appear to be extension of some of the vertebroplasty material into the anterior margin of the spinal canal paracentrally to the left. There is approximately 10% retropulsion which does efface the thecal sac at the L1 level secondary to the compression fracture. Recommend MRI follo w-up to assess severity of thecal sac compression or possible spinal cord contact which is suspected. 2. Superior endplate compression fractures of L2 and L3 likely chronic correlate clinically. 3. Multilevel facet arthropathy with multilevel disc bulging as discussed above with borderline canal stenosis L3-L4 and mild canal stenosis L4-L5.
== END | disposition home or self-care (01) ==
LOC: RADCTMAIN 12:46
PROVIDERS: ATTEND Physical Medicine & Rehabilitation
DX: M48.061 Spinal stenosis, lumbar region without neurogenic claudication (principal); M51.16 Intervertebral disc disorders with radiculopathy, lumbar region; M46.86 Other specified inflammatory spondylopathies, lumbar region; M48.56XA Collapsed vertebra, not elsewhere classified, lumbar region, initial encounter for fracture
CPT/HCPCS: 72131

== ENCOUNTER 2017-11-30 06:28 | Emergency (ER) | payer MEDICARE ==
--- NOTE | 2017-11-30 07:27 | ED ---
General Adult HPI - General Chief complaint: Abdominal Pain Stated complaint: Constipation Time Seen by Provider: 11/30/17 07:00 Source: patient, family, RN notes reviewed Mode of arrival: wheelchair Limitations: no limitations - History of Present Illness Initial comments: This is a 86-year-old male with a history of low back pain a prior compression fracture who states he twisted about for 5 days ago and has been constipated for at least last 4 days. This is in spite of suppositories and MiraLAX. He has is problem before when he was on hydrocodone he was prescribed this again 2 days ago. He denies any fevers chills nausea vomiting sweats he does state that when he tries to eat however it feels like he might come back. No cough shortness of breath he's been urinating a lot however. No other signs or symptoms. - Related Data Home Medications Medication Instructions Recorded Confirmed Fluticasone/Salmeterol [Advair 1 puff INHALATION RT-BID 02/28/14 11/30/17 250-50 Diskus] Aspirin 81 mg PO Q72H 06/01/15 11/30/17 Apixaban [Eliquis] 5 mg PO BID 05/20/17 11/30/17 Previous Rx's Medication Instructions Recorded Azithromycin [Zithromax Tri-Ralf] 500 mg PO DAILY #7 tab 05/22/17 Cefuroxime Axetil [Ceftin] 500 mg PO BID #14 tab 05/22/17 Ipratropium-Albuterol Nebulize 3 ml INHALATION RT-QID #120 05/22/17 [Duoneb 0.5 mg-3 mg/3 ml Soln] ampul.neb Metoprolol Tartrate [Lopressor] 25 mg PO BID #60 tab 05/22/17 Multivitamins, Thera [Multivitamin 1 each PO DAILY@1200 #30 tab 05/22/17 (formulary)] predniSONE 10 mg PO DIRECTED #30 tab 05/22/17 Allergies Allergy/AdvReac Type Severity Reaction Status Date / Time codeine Allergy Intermediate Hallucinati Verified 11/30/17 06:41 ons prednisone AdvReac agitated Verified 11/30/17 06:41 Review of Systems ROS Statement: Those systems with pertinent positive or pertinent negative responses have been documented in the HPI. ROS Other: All systems not noted in ROS Statement are negative. 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 History of Any Multi-Drug Resistant Organisms: None Reported Past Surgical History: Appendectomy, Cholecystectomy, Heart Catheterization, Pacemaker Additional Past Surgical History / Comment(s): MICHEAL CATARACTS, ULCER SX.HEMORROID SX, HAD DUAL PACEMAKER IMPLANTED (SICK SINUS SYNDROME,AV NODE DISEAE,TACHYBRADY SYNDROME. Past Anesthesia/Blood Transfusion Reactions: No Reported Reaction Type of Cardiac Device: Permanent Pacemaker Device Placement Date:: 2013 Past Psychological History: No Psychological Hx Reported Smoking Status: Former smoker Past Alcohol Use History: Rare Past Drug Use History: None Reported - Past Family History Father Family Medical History: CVA/TIA Additional Family Medical History / Comment(s): NOT SURE IF HE HAD MINI STROKES OR HEART PROBLEM. DAD AT AGE 82 Mother Family Medical History: Diabetes Mellitus Additional Family Medical History / Comment(s): AT AGE 76 General Exam - General Exam Comments Initial Comments: This is a well-developed well-nourished awake alert oriented times 3 male Limitations: no limitations General appearance: alert, in no apparent distress Head exam: Present: atraumatic, normocephalic, normal inspection Eye exam: Present: normal appearance, PERRL, EOMI. Absent: scleral icterus, conjunctival injection, periorbital swelling ENT exam: Present: normal exam, mucous membranes moist Neck exam: Present: normal inspection. Absent: tenderness, meningismus, lymphadenopathy Respiratory exam: Present: normal lung sounds bilaterally. Absent: respiratory distress, wheezes, rales, rhonchi, stridor Cardiovascular Exam: Present: regular rate, normal rhythm, normal heart sounds. Absent: systolic murmur, diastolic murmur, rubs, gallop, clicks GI/Abdominal exam: Present: soft, tenderness (Mild suprapubic tenderness no guarding or rebound), normal bowel sounds. Absent: distended, guarding, rebound , rigid, bruit, pulsatile mass, hernia Rectal exam: Present: deferred Extremities exam: Present: normal inspection, full ROM, normal capillary refill. Absent: tenderness, pedal edema, joint swelling, calf tenderness Back exam: Present: normal inspection Neurological exam: Present: alert, oriented X3, CN II-XII intact Psychiatric exam: Present: normal affect, normal mood Skin exam: Present: warm, dry, intact, normal color. Absent: rash Course Vital Signs 11/30/17 06:39 Temperature 98.2 F Pulse Rate 75 Respiratory 18 Rate Blood Pressure 156/71 O2 Sat by Pulse 94 L Oximetry Medical Decision Making - Medical Decision Making The patient did not respond to the initial ER back. He will be discharged home with a bottle of citrate of magnesium he is instructed take once he gets home is also instructed to follow-up with his doctor return when necessary and changed to Tylenol up to 1 g every 6 hours for pain. - Lab Data Lab Results 11/30/17 Range/Units 07:41 Urine Color Yellow Urine Appearance Clear (Clear) Urine pH 6.0 (5.0-8.0) Ur Specific [place] 1.016 (1.001-1.035) Urine Protein Negative (Negative) Urine Glucose (UA) Negative (Negative) Urine Ketones Negative (Negative) Urine Blood Negative (Negative) Urine Nitrite Negative (Negative) Urine Bilirubin Negative (Negative) Urine Urobilinogen 3.0 (<2.0) mg/dL Ur Leukocyte Esterase Negative (Negative) - Radiology Data Radiology results: report reviewed (Imaging was reviewed no acute findings or is evidence of increased stool), image reviewed Disposition Clinical Impression: Constipation, Chronic back pain Disposition: HOME SELF-CARE Condition: Good Instructions: Constipation (ED), High Fiber Diet (ED), Chronic Back Pain (ED) Additional Instructions: Tylenol up to 1 g every 6 hours when necessary for pain Is patient prescribed a controlled substance at d/c from ED?: No Referrals: Francie Quiñones DO [Primary Care Provider] - 1-2 days
--- NOTE | 2017-11-30 07:40 | XR ---
EXAMINATION TYPE: XR abdomen 1V , 2 VIEWS DATE OF EXAM ORDERED: 11/30/2017 HISTORY: Constipation and lower abdominal pain. COMPARISON: None. FINDINGS: There is a bipolar pacemaker in place. Lung bases are clear. There are nondistended air-filled loops of large and small bowel throughout the abdomen. There is no evidence of obstruction or free air. There is been a previous L1 kyphoplasty. No unusual calcificatio ns are seen. IMPRESSION: NONSPECIFIC ABDOMINAL PICTURE. FOLLOW-UP CLINICALLY INDICATED WOULD BE SUGGESTED.
[2017-11-30 07:49] LABS: Appearance,Urine Clear (Clear); Bilirubin,Urine Negative (Negative); Blood,Urine Negative (Negative); Color,Urine Yellow; Glucose,Urine (UA) Negative (Negative); Ketones,Urine Negative (Negative); Leukocyte Esterase,Urine Negative (Negative); Nitrite,Urine Negative (Negative); Protein,Urine Negative (Negative); Specific Gravity,Urine 1.016 (1.001-1.035)
[2017-11-30] MEDS ORDERED: DOCUSATE 283 MG/5 ML ENEMA RECTAL STA (08:37)
[2017-11-30] MEDS ORDERED: MAGNESIUM CITRATE 296 ML BOTTLE PO ONE (11:15)
[2017-11-30 12:13] VITALS: BP 151/68; PULSE 68; RESP 16; TEMP 97.8
== END 2017-11-30 12:10 | disposition home or self-care (01) ==
LOC: EC 06:28
DX: K59.00 Constipation, unspecified (principal); M54.5 Low back pain; G89.29 Other chronic pain; J44.9 Chronic obstructive pulmonary disease, unspecified; I48.2 Chronic atrial fibrillation; Z90.49 Acquired absence of other specified parts of digestive tract; Z95.818 Presence of other cardiac implants and grafts; Z95.0 Presence of cardiac pacemaker; Z87.891 Personal history of nicotine dependence; Z85.828 Personal history of other malignant neoplasm of skin; Z87.11 Personal history of peptic ulcer disease; Z79.51 Long term (current) use of inhaled steroids; Z79.82 Long term (current) use of aspirin; Z79.01 Long term (current) use of anticoagulants; Z88.5 Allergy status to narcotic agent; Z88.8 Allergy status to other drugs, medicaments and biological substances
CPT/HCPCS: 51798; 74018; 81003; 99284

== ENCOUNTER 2018-02-08 17:12 | Inpatient (IN) | payer MEDICARE ==
[2018-02-08] MEDS ORDERED: ONDANSETRON 4 MG/2 ML VIAL IVP STA (17:38)
[2018-02-08] MEDS ORDERED: SODIUM CHLORIDE 0.9% 1,000 ML IV STA (17:38)
[2018-02-08] MEDS ORDERED: ACETAMINOPHEN IV (For NPO) 1,000 MG in EMPTY BAG 1 BAG IVPB ONE (17:39)
--- NOTE | 2018-02-08 17:52 | ED ---
General Adult HPI - General Chief complaint: Abdominal Pain Stated complaint: abd pain Time Seen by Provider: 02/08/18 17:23 Source: patient, family, RN notes reviewed Mode of arrival: wheelchair Limitations: no limitations - History of Present Illness Initial comments: 87-year-old male presents to the emergency department for a chief complaint of lower abdominal pain 3 days. Patient states pain has been constant since it began 3 days ago. Patient has been taking Tylenol for pain which has been helping somewhat. Patient has had a bowel movement earlier today which is of soft consistency. No pain or burning with urination. No fevers or chills at home. Patient has been nauseous and has been having mild vomiting throughout the day. Patient is able to eat solid foods at home. Patient has no other complaints at this time including shortness of breath, chest pain, abdominal pain, nausea or vomiting, headache, or visual changes. - Related Data Home Medications Medication Instructions Recorded Confirmed Fluticasone/Salmeterol [Advair 1 puff INHALATION RT-BID 02/28/14 11/30/17 250-50 Diskus] Aspirin 81 mg PO Q72H 06/01/15 11/30/17 Apixaban [Eliquis] 5 mg PO BID 05/20/17 11/30/17 Previous Rx's Medication Instructions Recorded Azithromycin [Zithromax Tri-Ralf] 500 mg PO DAILY #7 tab 05/22/17 Cefuroxime Axetil [Ceftin] 500 mg PO BID #14 tab 05/22/17 Ipratropium-Albuterol Nebulize 3 ml INHALATION RT-QID #120 05/22/17 [Duoneb 0.5 mg-3 mg/3 ml Soln] ampul.neb Metoprolol Tartrate [Lopressor] 25 mg PO BID #60 tab 05/22/17 Multivitamins, Thera [Multivitamin 1 each PO DAILY@1200 #30 tab 05/22/17 (formulary)] predniSONE 10 mg PO DIRECTED #30 tab 05/22/17 Allergies Allergy/AdvReac Type Severity Reaction Status Date / Time codeine Allergy Intermediate Hallucinati Verified 02/08/18 17:18 ons prednisone AdvReac agitated Verified 02/08/18 17:18 Review of Systems ROS Statement: Those systems with pertinent positive or pertinent negative responses have been documented in the HPI. ROS Other: All systems not noted in ROS Statement are negative. 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 History of Any Multi-Drug Resistant Organisms: None Reported Past Surgical History: Appendectomy, Cholecystectomy, Heart Catheterization, Pacemaker Additional Past Surgical History / Comment(s): MICHEAL CATARACTS, ULCER SX.HEMORROID SX, HAD DUAL PACEMAKER IMPLANTED (SICK SINUS SYNDROME,AV NODE DISEAE,TACHYBRADY SYNDROME.. Stomach surgery r/t ulcer Past Anesthesia/Blood Transfusion Reactions: No Reported Reaction Type of Cardiac Device: Permanent Pacemaker Device Placement Date:: 2013 Past Psychological History: No Psychological Hx Reported Smoking Status: Former smoker Past Alcohol Use History: Rare Past Drug Use History: None Reported - Past Family History Father Family Medical History: CVA/TIA Additional Family Medical History / Comment(s): NOT SURE IF HE HAD MINI STROKES OR HEART PROBLEM. DAD AT AGE 82 Mother Family Medical History: Diabetes Mellitus Additional Family Medical History / Comment(s): AT AGE 76 General Exam Limitations: no limitations General appearance: alert, in no apparent distress Head exam: Present: atraumatic, normocephalic, normal inspection Eye exam: Present: normal appearance. Absent: scleral icterus, conjunctival injection ENT exam: Present: normal exam, mucous membranes moist Neck exam: Present: normal inspection, full ROM. Absent: tenderness, meningismus, lymphadenopathy Respiratory exam: Present: normal lung sounds bilaterally. Absent: respiratory distress, wheezes, rales, rhonchi, stridor Cardiovascular Exam: Present: regular rate, normal rhythm, normal heart sounds. Absent: systolic murmur, diastolic murmur, rubs, gallop, clicks GI/Abdominal exam: Present: soft, tenderness (moderate tenderness to palpation in the LLQ and mild tenderness in the RLQ. ), normal bowel sounds, other ( negative obturator and rovsing sign. ). Absent: distended, guarding, rebound, rigid Course Vital Signs 02/08/18 02/08/18 17:18 20:55 Temperature 97.8 F 97.6 F Pulse Rate 89 96 Respiratory 20 18 Rate Blood Pressure 145/79 130/65 O2 Sat by Pulse 92 L 90 L Oximetry EKG Findings - EKG Comments: EKG Findings:: Ventricular rate 102, sinus tach, PA interval 176, QRS duration 84, no evidence for ST elevation. Medical Decision Making - Medical Decision Making 87-year-old male presents to the emergency department for a chief complaint of lower abdominal pain 3 days. Patient has seen his primary care provider for this who scheduled an ultrasound for tomorrow but patient states his pain was too severe to wait until that time. Patient has had some nausea and vomiting with the pain. Patient had a normal bowel movement earlier today, denies diarrhea. Patient has had constipation in the past and wonders if this could be the cause. No fevers or chills at home. Patient did have one abdominal surgery on the stomach years ago. Patient afebrile in the emergency department and vitals within normal limits. Patient does have COPD and pulse ox is 92% on room air. On exam patient has moderate left lower quadrant tenderness with mild right lower quadrant tenderness as well. CBC, CMP, lactic unremarkable. Urine shows no sign of infection. CT shows enlarged prostate with mild dilated biliary tree. No obstructing lesions seen. No evidence of diverticulitis. There are compression fractures of L3 L2 L1 T12 T11. Patient was given pain medication as well as antinausea medication and is still having pain. is very concerned that she will have filled care for him at home due to the pain. Dr. Hyatt agrees that admission at this time is necessary for pain management as well as to further address cuase of patient's pain. - Lab Data Result diagrams: 02/08/18 17:59 02/08/18 17:59 Lab Results 02/08/18 02/08/18 02/08/18 Range/Units 17:59 17:59 17:59 WBC 5.4 (3.8-10.6) k/uL RBC 4.98 (4.30-5.90) m/uL Hgb 14.5 (13.0-17.5) gm/dL Hct 43.0 (39.0-53.0) % MCV 86.5 (80.0-100.0) fL MCH 29.2 (25.0-35.0) pg MCHC 33.7 (31.0-37.0) g/dL RDW 13.7 (11.5-15.5) % Plt Count 126 L (150-450) k/uL Neutrophils % 66 % Lymphocytes % 16 % Monocytes % 9 % Eosinophils % 4 % Basophils % 0 % Neutrophils # 3.6 (1.3-7.7) k/uL Lymphocytes # 0.9 L (1.0-4.8) k/uL Monocytes # 0.5 (0-1.0) k/uL Eosinophils # 0.2 (0-0.7) k/uL Basophils # 0.0 (0-0.2) k/uL Sodium 137 (137-145) mmol/L Potassium 4.5 (3.5-5.1) mmol/L Chloride 104 (98-107) mmol/L Carbon Dioxide 25 (22-30) mmol/L Anion Gap 8 mmol/L BUN 19 (9-20) mg/dL Creatinine 0.80 (0.66-1.25) mg/dL Est GFR (CKD-EPI)AfAm >90 (>60 ml/min/1.73 sqM) Est GFR (CKD-EPI)NonAf 81 (>60 ml/min/1.73 sqM) Glucose 118 H (74-99) mg/dL Plasma Lactic Acid Alphonse 1.3 (0.7-2.0) mmol/L Calcium 9.7 (8.4-10.2) mg/dL Total Bilirubin 1.3 (0.2-1.3) mg/dL AST 29 (17-59) U/L ALT 28 (21-72) U/L Alkaline Phosphatase 69 (38-126) U/L Total Protein 6.4 (6.3-8.2) g/dL Albumin 3.8 (3.5-5.0) g/dL Amylase 53 (30-110) U/L Lipase 60 (23-300) U/L Urine Color Urine Appearance (Clear) Urine pH (5.0-8.0) Ur Specific [place] (1.001-1.035) Urine Protein (Negative) Urine Glucose (UA) (Negative) Urine Ketones (Negative) Urine Blood (Negative) Urine Nitrite (Negative) Urine Bilirubin (Negative) Urine Urobilinogen (<2.0) mg/dL Ur Leukocyte Esterase (Negative) 02/08/18 Range/Units 18:44 WBC (3.8-10.6) k/uL RBC (4.30-5.90) m/uL Hgb (13.0-17.5) gm/dL Hct (39.0-53.0) % MCV (80.0-100.0) fL MCH (25.0-35.0) pg MCHC (31.0-37.0) g/dL RDW (11.5-15.5) % Plt Count (150-450) k/uL Neutrophils % % Lymphocytes % % Monocytes % % Eosinophils % % Basophils % % Neutrophils # (1.3-7.7) k/uL Lymphocytes # (1.0-4.8) k/uL Monocytes # (0-1.0) k/uL Eosinophils # (0-0.7) k/uL Basophils # (0-0.2) k/uL Sodium (137-145) mmol/L Potassium (3.5-5.1) mmol/L Chloride (98-107) mmol/L Carbon Dioxide (22-30) mmol/L Anion Gap mmol/L BUN (9-20) mg/dL Creatinine (0.66-1.25) mg/dL Est GFR (CKD-EPI)AfAm (>60 ml/min/1.73 sqM) Est GFR (CKD-EPI)NonAf (>60 ml/min/1.73 sqM) Glucose (74-99) mg/dL Plasma Lactic Acid Alph[place] (0.7-2.0) mmol/L Calcium (8.4-10.2) mg/dL Total Bilirubin (0.2-1.3) mg/dL AST (17-59) U/L ALT (21-72) U/L Alkaline Phosphatase (38-126) U/L Total Protein (6.3-8.2) g/dL Albumin (3.5-5.0) g/dL Amylase (30-110) U/L Lipase (23-300) U/L Urine Color Yellow Urine Appearance Clear (Clear) Urine pH 5.5 (5.0-8.0) Ur Specific [place] 1.022 (1.001-1.035) Urine Protein Trace H (Negative) Urine Glucose (UA) Negative (Negative) Urine Ketones 1+ H (Negative) Urine Blood Negative (Negative) Urine Nitrite Negative (Negative) Urine Bilirubin Negative (Negative) Urine Urobilinogen 3.0 (<2.0) mg/dL Ur Leukocyte Esterase Negative (Negative) Disposition Clinical Impression: Abdominal pain, Vomiting Disposition: ADMITTED IP TO THIS HOSP Is patient prescribed a controlled substance at d/c from ED?: No Referrals: Francie Quiñones DO [Primary Care Provider] - 1-2 days
[2018-02-08 18:08] LABS: Basophils % (A) 0 %; Eosinophils # (A) 0.2 k/uL (0-0.7); Eosinophils % (A) 4 %; HGB 14.5 gm/dL (13.0-17.5); Lymphocytes # (A) 0.9 k/uL (1.0-4.8); Lymphocytes % (A) 16 %; MCH 29.2 pg (25.0-35.0); MCHC 33.7 g/dL (31.0-37.0); MCV 86.5 fL (80.0-100.0); Mean Platelet Volume 7.3; Monocytes # (A) 0.5 k/uL (0-1.0); Monocytes % (A) 9 %; Neutrophils # (A) 3.6 k/uL (1.3-7.7); Neutrophils % (A) 66 %; Platelet Count 126 k/uL (150-450); RBC 4.98 m/uL (4.30-5.90); RDW 13.7 % (11.5-15.5); WBC 5.4 k/uL (3.8-10.6)
[2018-02-08 18:27] LABS: ALT 28 U/L (21-72); AST 29 U/L (17-59); Albumin 3.8 g/dL (3.5-5.0); Alkaline Phosphatase 69 U/L (38-126); Amylase 53 U/L (30-110); Anion Gap 8 mmol/L; Blood Urea Nitrogen 19 mg/dL (9-20); Calcium 9.7 mg/dL (8.4-10.2); Carbon Dioxide 25 mmol/L (22-30); Chloride 104 mmol/L (98-107); Glucose 118 mg/dL (74-99); Lipase 60 U/L (23-300); Potassium 4.5 mmol/L (3.5-5.1); Sodium 137 mmol/L (137-145); Total Bilirubin 1.3 mg/dL (0.2-1.3); Total Protein 6.4 g/dL (6.3-8.2)
[2018-02-08 18:52] LABS: Appearance,Urine Clear (Clear); Bilirubin,Urine Negative (Negative); Blood,Urine Negative (Negative); Color,Urine Yellow; Glucose,Urine (UA) Negative (Negative); Ketones,Urine 1+ (Negative); Leukocyte Esterase,Urine Negative (Negative); Nitrite,Urine Negative (Negative); PH, Urine 5.5 (5.0-8.0); Protein,Urine Trace (Negative); Specific Gravity,Urine 1.022 (1.001-1.035)
--- NOTE | 2018-02-08 19:19 | CT ---
EXAMINATION TYPE: CT abdomen pelvis w con DATE OF EXAM: 02/08/2018 COMPARISON: HISTORY: Patient complains of pain, nausea, and vomiting. CT DLP: 449.5 mGycm Automated exposure control for dose reduction was used. TECHNIQUE: Helical acquisition of images was performed from the lung bases through the pelvis. CONTRAST: Performed without Oral Contrast and with IV Contrast, patient injected with 100 mL of Isovue 300. FINDINGS: Lung bases are clear of consolidation. There is no pleural effusion. Spleen appears normal. There is no pancreatic mass. There are clips from cholecystectomy. There is mild dilation of the bile ducts. T here is no adrenal mass. Kidneys show satisfactory contrast opacification. There is no hydronephrosis . There is a 1 cm cortical cyst anterior left kidney. Bladder distends smoothly. There is enlarged pr ostate. Prostate measures 5 cm. There are multiple sigmoid diverticula. There is no evidence of diver ticulitis. Appendix is not seen. There is no sign of appendicitis. There are compression fractures of L3 L2 L1 T12 T11. There is vertebroplasty at L1. There is osteopen ia. IMPRESSION: ENLARGED PROSTATE. CARDIOMEGALY. MILD DILATED BILIARY TREE. NO OBSTRUCTING LESION SEEN. COMMON BILE DUCT IS 13 MM. COMPARISON WITH AN OLD EXAM WOULD BE HELPFUL.
[2018-02-08] MEDS ORDERED: KETOROLAC 30 MG/ML 1 ML VIAL IVP STA (19:36)
[2018-02-08] MEDS ORDERED: DICYCLOMINE 10 MG/ML 2 ML AMP IM STA (19:43)
[2018-02-08] MEDS ORDERED: METOCLOPRAMIDE 5 MG/ML 2 ML VIAL IVP STA (19:45)
[2018-02-08] MEDS ORDERED: NALOXONE 0.4 MG/ML 1 ML VIAL IV PRN (21:33)
[2018-02-08] MEDS ORDERED: ACETAMINOPHEN TAB 325 MG TAB PO PRN (21:33)
[2018-02-08] MEDS ORDERED: MORPHINE SULFATE 2 MG/ML SYRINGE IVP STA (21:33)
[2018-02-08] MEDS ORDERED: PANTOPRAZOLE 40 MG/10 ML VIAL IVP ONE (22:07)
[2018-02-08] MEDS: ONDANSETRON 4 MG/2 ML VIAL IVP SCH (22:50)
[2018-02-09] MEDS: MORPHINE SULFATE 2 MG/ML SYRINGE IVP PRN ×4 (02:11→20:00)
[2018-02-09] MEDS: ONDANSETRON 4 MG/2 ML VIAL IVP SCH ×3 (06:14→21:34)
[2018-02-09] MEDS: PANTOPRAZOLE 40 MG/10 ML VIAL IVP SCH (08:20)
[2018-02-09] MEDS ORDERED: POLYETHYLENE GLYCOL 3350 17 GM POWD.PACK PO PRN (11:12)
[2018-02-09] MEDS: APIXABAN 5 MG TAB PO SCH ×2 (12:09→20:01)
[2018-02-09] MEDS: ACETAMINOPHEN TAB 500 MG TAB PO PRN (12:09)
[2018-02-09] MEDS: DOCUSATE 100 MG CAP PO SCH (12:09)
[2018-02-09] MEDS ORDERED: traMADol 50 MG TAB PO PRN (15:10)
--- NOTE | 2018-02-09 15:13 | P.HPIM ---
History of Present Illness This is a pleasant 57 years old male with past medical history of chronic atrial fibrillation, COPD, status post pacemaker, basal cell carcinoma of the skin status post resection, peptic ulcer disease, history of coronary artery disease status post cardiac cath. Presents because of abdominal pain Patient states he has 2 pain and swelling in his lower back and one in his abdomin, in August 2017 he slipped on ice and twisted his back, followed by lower back pain which got worse after he was trying to lift a ladder and since then he has been fluctuating in pain. Patient was taking narcotics however he stopped his hydrocodone about 6 weeks ago. Patient also complains from 2 months history of nonspecific abdominal pain mainly on the left side radiating to the right side to person upper abdomen, slight sharp knife in character. Relieved by moving his bowel, over the last 3 days became more severe. Associated with vomiting white mucus stuff several times yesterday. Patient didn't have a bowel movement over the last 2 days. Patient denies weakness in his lower extremity and hip was noticed he is walking the hallway using his walker. He complains from some numbness, mild behind his left leg and thigh. In the ED his blood pressure was on the low side, CBC was unremarkable except for low platelets at 126, which is chronic. BMP was unremarkable except for high glucose mildly at 118. UA was negative for infection. CT of the abdomen and pelvis shows compression fraction of of 3 to L1 and T12 to T11 with osteopenia. Gallbladder absence with markedly dilated bile duct Review of Systems CONSTITUTIONAL: No fever, no malaise, no fatigue. HEENT: No recent visual problems or hearing problems. Denied any sore throat. CARDIOVASCULAR: No orthopnea, PND, no palpitations, no syncope. PULMONARY: No shortness of breath, no cough, no hemoptysis. GASTROINTESTINAL: No diarrhea, NEUROLOGICAL: No headaches, no weakness, no numbness. HEMATOLOGICAL: Denies any bleeding or petechiae. GENITOURINARY: Denies any burning micturition, frequency, or urgency. MUSCULOSKELETAL/RHEUMATOLOGICAL: Denies any joint pain, swelling, or any muscle pain. ENDOCRINE: Denies any polyuria or polydipsia. 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 History of Any Multi-Drug Resistant Organisms: None Reported Past Surgical History: Appendectomy, Cholecystectomy, Heart Catheterization, Pacemaker Additional Past Surgical History / Comment(s): MICHEAL CATARACTS, ULCER SX.HEMORROID SX, HAD DUAL PACEMAKER IMPLANTED (SICK SINUS SYNDROME,AV NODE DISEAE,TACHYBRADY SYNDROME.. Stomach surgery r/t ulcer Past Anesthesia/Blood Transfusion Reactions: No Reported Reaction Type of Cardiac Device: Permanent Pacemaker Device Placement Date:: 2013 Smoking Status: Former smoker - Past Family History Father Family Medical History: CVA/TIA Additional Family Medical History / Comment(s): NOT SURE IF HE HAD MINI STROKES OR HEART PROBLEM. DAD AT AGE 82 Mother Family Medical History: Diabetes Mellitus Additional Family Medical History / Comment(s): AT AGE 76 Medications and Allergies Home Medications Medication Instructions Recorded Confirmed Type Fluticasone/Salmeterol [Advair 1 puff INHALATION RT-BID 02/28/14 02/09/18 History 250-50 Diskus] Apixaban [Eliquis] 5 mg PO BID 05/20/17 02/09/18 History Acetaminophen Tab [Tylenol Tab] 1,000 mg PO Q6HR PRN 02/09/18 02/09/18 History Docusate [Colace] 100 mg PO DAILY 02/09/18 02/09/18 History Linaclotide [Linzess] 290 mcg PO DAILY 02/09/18 02/09/18 History Polyethylene Glycol 3350 [Miralax] 17 gm PO DAILY PRN 02/09/18 02/09/18 History Allergies Allergy/AdvReac Type Severity Reaction Status Date / Time codeine Allergy Intermediate Hallucinati Verified 02/08/18 22:24 ons prednisone AdvReac agitated Verified 02/08/18 22:24 Physical Exam Vitals: Vital Signs Temp Pulse Pulse Resp BP BP Pulse Ox 02/09/18 07:42 98.2 F 83 16 116/55 93 L 02/09/18 04:00 16 02/09/18 00:00 98.4 F 89 16 98/58 92 L 02/08/18 23:33 18 02/08/18 21:50 97.6 F 96 18 123/64 92 L 02/08/18 20:55 97.6 F 96 18 130/65 90 L 02/08/18 17:18 97.8 F 89 20 145/79 92 L Intake and Output 02/08/18 02/09/18 02/09/18 22:59 06:59 14:59 Intake Total 236 Balance 236 Intake: Oral 236 Other: Voiding Method Toilet Urinal # Voids 1 1 Weight 68.1 kg GENERAL: The patient is alert and oriented x3, not in any acute distress. Well developed, well nourished. HEENT: Pupils are round and equally reacting to light. EOMI. No scleral icterus. No conjunctival pallor. Normocephalic, atraumatic. No pharyngeal erythema. No thyromegaly. CARDIOVASCULAR: S1 and S2 present. No murmurs, rubs, or gallops. PULMONARY: Chest is clear to auscultation, no wheezing or crackles. ABDOMEN: Soft, nontender, nondistended, normoactive bowel sounds. No palpable organomegaly. MUSCULOSKELETAL: No joint swelling or deformity. EXTREMITIES: No cyanosis, clubbing, or pedal edema. NEUROLOGICAL: Gross neurological examination did not reveal any focal deficits. SKIN: No rashes. Results CBC & Chem 7: 02/08/18 17:59 02/08/18 17:59 Labs: Abnormal Lab Results - Last 24 Hours (Table) 02/08/18 02/08/18 02/08/18 Range/Units 17:59 17:59 18:44 Plt Count 126 L (150-450) k/uL Lymphocytes # 0.9 L (1.0-4.8) k/uL Glucose 118 H (74-99) mg/dL Urine Protein Trace H (Negative) Urine Ketones 1+ H (Negative) Thrombosis Risk Factor Assmnt - Choose All That Apply Each Risk Factor Represents 3 Points: Age 75 years or older Thrombosis Risk Factor Assessment Total Risk Factor Score: 3 Thrombosis Risk Factor Assessment Level: Moderate Risk Assessment and Plan Plan: -Lower back pain, acute on chronic. Not controlled, no weakness in the lower extremity. Computed tomography scan showing compression fraction of T11-T12 and L1 to L3. Put him on vitamin D and calcium. Call orthopedic consult. Pain management -Left side upper abdominal pain going across the abdomen to the right side. Moderate in severity. Associated with retching or vomiting white mucus. And constipation for 2 days. Computed tomography scan of the abdomen was unremarkable. order abdominal x-ray. call surgical consult -History of chronic atrial fibrillation, on liquids. Heart rate controlled on medication. Continue same treatment. He follow-up with Dr. Granados as an outpatient -COPD, not in acute exacerbation DVT prophylaxis patient is an ELIQUIS GI prophylaxis on Protonix
--- NOTE | 2018-02-09 16:41 | XR ---
EXAMINATION TYPE: XR abdomen 2V DATE OF EXAM: 02/09/2018 COMPARISON: NONE HISTORY: Abdominal pain TECHNIQUE: Supine and upright views FINDINGS: There is no sign of intestinal obstruction or pneumoperitoneum. Fecal pattern is normal. Th ere are no pathologic calcifications over the kidneys. There is small area of atelectasis at the late ral left lung base. There is vertebroplasty of L1 vertebra. IMPRESSION: Nonacute abdomen. Increasing atelectasis at the left lung base.
[2018-02-09] MEDS: CALCIUM CARB-VIT D 500MG-200UN 1 EACH TAB PO SCH (18:14)
[2018-02-09] MEDS ORDERED: MAGNESIUM CITRATE 296 ML BOTTLE PO ONE (19:11)
--- NOTE | 2018-02-09 19:11 | P.GSCN ---
History of Present Illness Consult date: 02/09/18 History of present illness: 87-year-old male presents to the emergency department with complaints of abdominal pain. He states that he does not remember when the pain started but it has been on and off and mostly on the left side of his abdomen. He denies any exacerbation of pain with oral intake. He states that he does have a decreased appetite. He states that he has not had a bowel movement in 2 days. He states that normally he does have a daily bowel movement. He does not remember when his last colonoscopy was. He states that he has had multiple abdominal surgeries in the past including cholecystectomy and a peptic ulcer procedure 30 years ago. He complains of mild nausea and dry heaving. Since his admission, the patient has been on a regular diet and has not had any emesis. He does complain of back pain and orthopedics has been counseled. He has no additional complaints at this time. Denies any fevers, chills, chest pain or shortness of breath. 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 History of Any Multi-Drug Resistant Organisms: None Reported Past Surgical History: Appendectomy, Cholecystectomy, Heart Catheterization, Pacemaker Additional Past Surgical History / Comment(s): MICHEAL CATARACTS, ULCER SX.HEMORROID SX, HAD DUAL PACEMAKER IMPLANTED (SICK SINUS SYNDROME,AV NODE DISEAE,TACHYBRADY SYNDROME.. Stomach surgery r/t ulcer Past Anesthesia/Blood Transfusion Reactions: No Reported Reaction Type of Cardiac Device: Permanent Pacemaker Device Placement Date:: 2013 Smoking Status: Former smoker - Past Family History Father Family Medical History: CVA/TIA Additional Family Medical History / Comment(s): NOT SURE IF HE HAD MINI STROKES OR HEART PROBLEM. DAD AT AGE 82 Mother Family Medical History: Diabetes Mellitus Additional Family Medical History / Comment(s): AT AGE 76 Medications and Allergies Home Medications Medication Instructions Recorded Confirmed Type Fluticasone/Salmeterol [Advair 1 puff INHALATION RT-BID 02/28/14 02/09/18 History 250-50 Diskus] Apixaban [Eliquis] 5 mg PO BID 05/20/17 02/09/18 History Acetaminophen Tab [Tylenol Tab] 1,000 mg PO Q6HR PRN 02/09/18 02/09/18 History Docusate [Colace] 100 mg PO DAILY 02/09/18 02/09/18 History Linaclotide [Linzess] 290 mcg PO DAILY 02/09/18 02/09/18 History Polyethylene Glycol 3350 [Miralax] 17 gm PO DAILY PRN 02/09/18 02/09/18 History Allergies Allergy/AdvReac Type Severity Reaction Status Date / Time codeine Allergy Intermediate Hallucinati Verified 02/08/18 22:24 ons prednisone AdvReac agitated Verified 02/08/18 22:24 Surgical - Exam Osteopathic Statement: *. No significant issues noted on an osteopathic structural exam other than those noted in the History and Physical/Consult. Vital Signs Temp Pulse Resp BP Pulse Ox 97.8 F 89 20 145/79 92 L 02/08/18 17:18 02/08/18 17:18 02/08/18 17:18 02/08/18 17:18 02/08/18 17:18 - General no distress - Eyes normal ocular movement - ENT normal mucosa, decreased hearing - Neck trachea midline - Respiratory No difficulty with respiration - Abdomen Soft, mild tenderness to the left upper quadrant, nondistended, no rebound, no guarding - Neurologic normal sensation - Psychiatric oriented to time, oriented to person, oriented to place Results - Labs 02/08/18 17:59 02/08/18 17:59 - Imaging CT scan - abdomen: report reviewed, image reviewed CT scan - pelvis: report reviewed, image reviewed (No obvious evidence of bowel obstruction, no acute findings) Assessment and Plan (1) Abdominal pain Narrative/Plan: 87-year-old male with abdominal pain. CT of the abdomen and pelvis was reviewed with no significant acute findings. The patient has stated that he has not had a bowel movement in 2 days. We'll begin the patient a bowel regimen. Continue regular diet. Continue medical recommendations. Awaiting orthopedic recommendations. Current Visit: Yes Status: Acute Code(s): R10.9 - UNSPECIFIED ABDOMINAL PAIN SNOMED Code(s): 85306366
[2018-02-09] MEDS: SYMBICORT 80-4.5 MCG INHALER INHALATION SCH (19:54)
[2018-02-10] MEDS: MORPHINE SULFATE 2 MG/ML SYRINGE IVP PRN ×4 (02:00→20:38)
[2018-02-10] MEDS: ONDANSETRON 4 MG/2 ML VIAL IVP SCH ×3 (06:13→20:37)
[2018-02-10] MEDS: SYMBICORT 80-4.5 MCG INHALER INHALATION SCH ×2 (07:16→21:19)
[2018-02-10] MEDS: CALCIUM CARB-VIT D 500MG-200UN 1 EACH TAB PO SCH ×2 (07:34→17:39)
[2018-02-10] MEDS: DOCUSATE 100 MG CAP PO SCH (07:35)
[2018-02-10] MEDS: APIXABAN 5 MG TAB PO SCH ×2 (07:35→20:38)
[2018-02-10] MEDS: PANTOPRAZOLE 40 MG/10 ML VIAL IVP SCH (07:35)
--- NOTE | 2018-02-10 12:36 | P.PN ---
Subjective This is a pleasant 57 years old male with past medical history of chronic atrial fibrillation, COPD, status post pacemaker, basal cell carcinoma of the skin status post resection, peptic ulcer disease, history of coronary artery disease status post cardiac cath. Presents because of abdominal pain Patient states he has 2 pain and swelling in his lower back and one in his abdomin, in August 2017 he slipped on ice and twisted his back, followed by lower back pain which got worse after he was trying to lift a ladder and since then he has been fluctuating in pain. Patient was taking narcotics however he stopped his hydrocodone about 6 weeks ago. Patient also complains from 2 months history of nonspecific abdominal pain mainly on the left side radiating to the right side to person upper abdomen, slight sharp knife in character. Relieved by moving his bowel, over the last 3 days became more severe. Associated with vomiting white mucus stuff several times yesterday. Patient didn't have a bowel movement over the last 2 days. Patient denies weakness in his lower extremity and hip was noticed he is walking the hallway using his walker. He complains from some numbness, mild behind his left leg and thigh. In the ED his blood pressure was on the low side, CBC was unremarkable except for low platelets at 126, which is chronic. BMP was unremarkable except for high glucose mildly at 118. UA was negative for infection. CT of the abdomen and pelvis shows compression fraction of of 3 to L1 and T12 to T11 with osteopenia. Gallbladder absence with markedly dilated bile duct 02/10/2018 Patient abdominal pain is minimal. Patient having bowel movement which is kind of fluids after he got several bowel regiment. And he is taken prone juice. Surgical evaluation is appreciated call on no need for surgical intervention. Patient is still complaining of from significant pain and he's pointing to the side of the lower back, at this point tenderness and a small area about 1-2 inches, which was marked. This pain is radiating to the front across the side, rather than abdominal pain. Patient states that this is the pain is really bothering him since August and that he went to couple doctors but they couldn' t help him which their therapies. Patient denies urine or bowel incontinence. He denies nausea vomiting but he has some retching. Patient denies weakness in his legs. Patient is noticed walking the hallway using his walker. Unfortunately the orthopedic for back pain Dr. Pasia is not available this hospital for this week. And the recommended outpatient follow-up in 1 week. PT /OT is ongoing Objective - Vital Signs Vital signs: Vital Signs Temp 97.4 F L 02/10/18 07:35 Pulse 94 02/10/18 07:35 Resp 16 02/10/18 12:00 BP 123/64 02/10/18 07:35 Pulse Ox 93 L 02/10/18 07:35 Intake & Output 02/09/18 02/10/18 02/10/18 18:59 06:59 18:59 Intake Total 236 Balance 236 Intake: Oral 236 Other: Voiding Method Toilet Toilet Toilet Urinal Urinal Urinal # Voids 1 1 1 - Exam GENERAL: The patient is alert and oriented x3, not in any acute distress. Well developed, well nourished. HEENT: Pupils are round and equally reacting to light. EOMI. No scleral icterus. No conjunctival pallor. Normocephalic, atraumatic. No pharyngeal erythema. No thyromegaly. CARDIOVASCULAR: S1 and S2 present. No murmurs, rubs, or gallops. PULMONARY: Chest is clear to auscultation, no wheezing or crackles. ABDOMEN: Soft, nontender, nondistended, normoactive bowel sounds. No palpable organomegaly. MUSCULOSKELETAL: No joint swelling or deformity. -Patient has point tenderness in the lower back to the left side, about 1-2 inches in size. (Area is demarcated). EXTREMITIES: No cyanosis, clubbing, or pedal edema. NEUROLOGICAL: Gross neurological examination did not reveal any focal deficits. SKIN: No rashes. - Labs CBC & Chem 7: 02/08/18 17:59 02/08/18 17:59 Assessment and Plan Plan: -Lower back pain, acute on chronic. Not controlled pain is the main problem of the patient, no weakness in the lower extremity. Computed tomography scan showing compression fraction of T11-T12 and L1 to L3. Put him on vitamin D and calcium. orthopedic consult is not available this week, and the recommend outpatient follow-up. Pain management (topical, oral and intravenous. See orders) -Left side upper abdominal pain going across the abdomen to the right side. Resolving Moderate in severity. Associated with retching or vomiting white mucus. And constipation for 2 days. Computed tomography scan of the abdomen was unremarkable. order abdominal x-ray. call surgical consult -History of chronic atrial fibrillation, on eliquis. Heart rate controlled on medication. Continue same treatment. He follow-up with Dr. Granados as an outpatient -COPD, not in acute exacerbation DVT prophylaxis patient is an ELIQUIS GI prophylaxis on Protonix PT/OT: Pending Prognosis is guarded
[2018-02-10] MEDS: traMADol 50 MG TAB PO PRN (12:38)
[2018-02-10] MEDS: LIDOCAINE 5% PATCH TOPICAL SCH (15:50)
--- NOTE | 2018-02-10 16:23 | P.CONS ---
History of Present Illness - Chief Complaint Left flank and abdominal pain - History of Present Illness I had the opportunity see patient for inpatient rehab and pain consultation with regard to left flank and abdominal pain. Patient admitted to [facility] February 08 with same problem. Seen by Dr. Rogers for surgical opinion. CT of abdomen demonstrates cardiomegaly and dilated biliary tree. Abdominal x-ray negative but did demonstrate left base atelectasis. PT and OT prescribed. Should note that there is a history of untoward incident involving carrying a ladder and bladder falling and top patient and since with episodes of back pain. reports workup was done including CT and x-ray which were negative. Previous functional history as elicited patient and : 87-year-old right- handed white male who is lives with . Retired. 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 Patient independent with standing shower and gait with [address] Ortiz is regular doctor. History smoking or opacity doesn't smoke or drink currently. Family history mother with diabetes and father with strokes. Review of Systems Review of systems: ENT: Denies sneezes or discharge. Eyes: Denies discharge or photophobia. Cardiac: Denies chest pain or palpitation. Pulmonary: Denies cough or shortness of breath. Gastrointestinal: Abdominal and flank pain. Genitourinary: Denies discharge or frequency. Musculoskeletal: Low back pain and left flank pain. Neurologic: Denies motor or sensory change. Endocrine: Denies shakes or sweats. Oncology: Denies cancers. Dermatologic: Denies rash, itching, pruritus. ALLERGY/immunology: Denies sneezes, rashes. 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 History of Any Multi-Drug Resistant Organisms: None Reported Past Surgical History: Appendectomy, Cholecystectomy, Heart Catheterization, Pacemaker Additional Past Surgical History / Comment(s): MICHEAL CATARACTS, ULCER SX.HEMORROID SX, HAD DUAL PACEMAKER IMPLANTED (SICK SINUS SYNDROME,AV NODE DISEAE,TACHYBRADY SYNDROME.. Stomach surgery r/t ulcer Past Anesthesia/Blood Transfusion Reactions: No Reported Reaction Type of Cardiac Device: Permanent Pacemaker Device Placement Date:: 2013 Smoking Status: Former smoker - Past Family History Father Family Medical History: CVA/TIA Additional Family Medical History / Comment(s): NOT SURE IF HE HAD MINI STROKES OR HEART PROBLEM. DAD AT AGE 82 Mother Family Medical History: Diabetes Mellitus Additional Family Medical History / Comment(s): AT AGE 76 Medications and Allergies Home Medications Medication Instructions Recorded Confirmed Type Fluticasone/Salmeterol [Advair 1 puff INHALATION RT-BID 02/28/14 02/09/18 History 250-50 Diskus] Apixaban [Eliquis] 5 mg PO BID 05/20/17 02/09/18 History Acetaminophen Tab [Tylenol Tab] 1,000 mg PO Q6HR PRN 02/09/18 02/09/18 History Docusate [Colace] 100 mg PO DAILY 02/09/18 02/09/18 History Linaclotide [Linzess] 290 mcg PO DAILY 02/09/18 02/09/18 History Polyethylene Glycol 3350 [Miralax] 17 gm PO DAILY PRN 02/09/18 02/09/18 History Allergies Allergy/AdvReac Type Severity Reaction Status Date / Time codeine Allergy Intermediate Hallucinati Verified 02/08/18 22:24 ons prednisone AdvReac agitated Verified 02/08/18 22:24 Physical Exam Vitals: Vital Signs Temp Pulse Resp BP Pulse Ox 02/10/18 15:25 97.7 F 92 14 131/64 84 L 02/10/18 12:00 16 02/10/18 07:45 16 02/10/18 07:35 97.4 F L 94 18 123/64 93 L 02/10/18 03:06 16 02/09/18 23:55 98.7 F 91 16 128/72 90 L 02/09/18 23:32 16 02/09/18 20:00 16 02/09/18 19:59 98.5 F 96 16 133/64 90 L Intake and Output 02/10/18 02/10/18 02/10/18 06:59 14:59 22:59 Other: Voiding Method Toilet Toilet Urinal Urinal # Voids 1 1 Skin: Atrophic, intact. General: Medium build and comfortable appearance. Head: Normocephalic, atraumatic. Eyes: Symmetric. Pupils equal round. Ears: Symmetric. Hearing within normal limits. Mouth: Clear. Neck: Supple. Carotid without bruit. Cardiac: Regular rate and rhythm. Lungs: Clear anteriorly and posteriorly. Abdomen: Soft active nontender. Extremities: Normal tone. Neurological: Mental status: Alert, cooperative, pleasant. Cranial nerves: Symmetric facial tone and trapezius. Motor: Active movement all 4 limbs. Sensation: Intact throughout. DTRs: Symmetric and equal throughout. Mobility: Not attempt to sit or stand. Results CBC & Chem 7: 02/08/18 17:59 02/08/18 17:59 Abdominal x-ray: report reviewed (Negative.) CT scan - abdomen: report reviewed (Cardiomegaly and dilated biliary tree.) Assessment and Plan (1) Abdominal pain Current Visit: Yes Status: Acute Code(s): R10.9 - UNSPECIFIED ABDOMINAL PAIN SNOMED Code(s): 87495815 Plan: Impression: 1. Medical debility. 2. Abdominal and left flank pain. 3. Low back pain. 4. COPD. 5. Atrial fibrillation. Comments and plan: At this time PT and OT are prescribed. Of also reviewed pain program. Patient problems with hydrocodone. Patient has Tylenol and Ultram prescribed and would just continue those medications.
[2018-02-11] MEDS: traMADol 50 MG TAB PO PRN ×3 (01:08→17:13)
[2018-02-11] MEDS: MORPHINE SULFATE 2 MG/ML SYRINGE IVP PRN ×2 (02:12→07:38)
[2018-02-11] MEDS: ACETAMINOPHEN TAB 500 MG TAB PO PRN ×2 (04:26→10:38)
[2018-02-11] MEDS: LIDOCAINE 5% PATCH TOPICAL SCH (07:39)
[2018-02-11] MEDS: CALCIUM CARB-VIT D 500MG-200UN 1 EACH TAB PO SCH ×2 (07:39→17:11)
[2018-02-11] MEDS: DOCUSATE 100 MG CAP PO SCH (07:39)
[2018-02-11] MEDS: APIXABAN 5 MG TAB PO SCH ×2 (07:39→21:18)
[2018-02-11] MEDS: PANTOPRAZOLE 40 MG/10 ML VIAL IVP SCH (07:40)
[2018-02-11] MEDS: ONDANSETRON 4 MG/2 ML VIAL IVP SCH ×3 (07:48→21:19)
[2018-02-11] MEDS: SYMBICORT 80-4.5 MCG INHALER INHALATION SCH ×2 (07:50→20:21)
--- NOTE | 2018-02-11 11:46 | P.PN ---
Subjective This is a pleasant 57 years old male with past medical history of chronic atrial fibrillation, COPD, status post pacemaker, basal cell carcinoma of the skin status post resection, peptic ulcer disease, history of coronary artery disease status post cardiac cath. Presents because of abdominal pain Patient states he has 2 pain and swelling in his lower back and one in his abdomin, in August 2017 he slipped on ice and twisted his back, followed by lower back pain which got worse after he was trying to lift a ladder and since then he has been fluctuating in pain. Patient was taking narcotics however he stopped his hydrocodone about 6 weeks ago. Patient also complains from 2 months history of nonspecific abdominal pain mainly on the left side radiating to the right side to person upper abdomen, slight sharp knife in character. Relieved by moving his bowel, over the last 3 days became more severe. Associated with vomiting white mucus stuff several times yesterday. Patient didn't have a bowel movement over the last 2 days. Patient denies weakness in his lower extremity and hip was noticed he is walking the hallway using his walker. He complains from some numbness, mild behind his left leg and thigh. In the ED his blood pressure was on the low side, CBC was unremarkable except for low platelets at 126, which is chronic. BMP was unremarkable except for high glucose mildly at 118. UA was negative for infection. CT of the abdomen and pelvis shows compression fraction of of 3 to L1 and T12 to T11 with osteopenia. Gallbladder absence with markedly dilated bile duct 02/10/2018 Patient abdominal pain is minimal. Patient having bowel movement which is kind of fluids after he got several bowel regiment. And he is taken prone juice. Surgical evaluation is appreciated call on no need for surgical intervention. Patient is still complaining of from significant pain and he's pointing to the side of the lower back, at this point tenderness and a small area about 1-2 inches, which was marked. This pain is radiating to the front across the side, rather than abdominal pain. Patient states that this is the pain is really bothering him since August and that he went to couple doctors but they couldn' t help him which their therapies. Patient denies urine or bowel incontinence. He denies nausea vomiting but he has some retching. Patient denies weakness in his legs. Patient is noticed walking the hallway using his walker. Unfortunately the orthopedic for back pain Dr. Beasley is not available this hospital for this week. And the recommended outpatient follow-up in 1 week. PT /OT is ongoing 02/11/2018 Patient still have mild epigastric pain and tenderness, 2/10 in severity. His dry heaves/retching have stopped since yesterday. He is having some bowel movements with bowel regimens. He had a small 1 which was semi-solid. But he didn't have bowel movements this morning. I had long discussions with the patient's and son at bedside according to the patient's request. And they like to call for GI team to evaluate the patient's before discharge. His back pain is improving, going across the abdomen to the right side ( mild), it was 10/10 in severity on admission. and now 6/10 in severity with pain management. he had a brace prescribed to him but he was not wearing it. it was brought by hospital staff for the pt and he is wearing it today Was taking IV morphine and Ultram. We'll DC the IV morphine and continue Ultram by mouth every 4 hours. Patient instructed to ask for pain pills when he needs it and he verbalized understanding and acceptance. pt was instructed how to use it. Family was not at bedside this morning CONSTITUTIONAL: No fever, no malaise, no fatigue. HEENT: No recent visual problems or hearing problems. Denied any sore throat. CARDIOVASCULAR: No orthopnea, PND, no palpitations, no syncope. PULMONARY: No shortness of breath, no cough, no hemoptysis. GASTROINTESTINAL: No diarrhea, no nausea, no vomiting. Normoactive bowel sounds. NEUROLOGICAL: No headaches, no weakness, no numbness. HEMATOLOGICAL: Denies any bleeding or petechiae. GENITOURINARY: Denies any burning micturition, frequency, or urgency. MUSCULOSKELETAL/RHEUMATOLOGICAL: Denies any joint pain, swelling, ENDOCRINE: Denies any polyuria or polydipsia. Medication with dosages are reviewed: Tylenol, liquids, Symbicort, calcium carbonate, Colace, Lidoderm, linzess, Zofran, Protonix, MiraLAX, Ultram. Objective - Vital Signs Vital signs: Vital Signs Temp 97.3 F L 02/11/18 06:38 Pulse 72 02/11/18 06:38 Resp 14 02/11/18 06:38 BP 118/56 02/11/18 06:38 Pulse Ox 95 07/25/18 06:38 Intake & Output 02/10/18 02/11/18 02/11/18 18:59 06:59 18:59 Weight 66 kg Other: Voiding Method Toilet Toilet Urinal Urinal # Voids 3 2 - Exam GENERAL: The patient is alert and oriented x3, not in any acute distress. Well developed, well nourished. HEENT: Pupils are round and equally reacting to light. EOMI. No scleral icterus. No conjunctival pallor. Normocephalic, atraumatic. No pharyngeal erythema. No thyromegaly. CARDIOVASCULAR: S1 and S2 present. No murmurs, rubs, or gallops. PULMONARY: Chest is clear to auscultation, no wheezing or crackles. -ABDOMEN: Soft, mild epigastric tenderness, no rebound tenderness. nondistended , normoactive bowel sounds. No palpable organomegaly. MUSCULOSKELETAL: No joint swelling or deformity. -Patient has point tenderness in the lower back to the left side, about 1-2 inches in size. (Area is demarcated). EXTREMITIES: No cyanosis, clubbing, or pedal edema. NEUROLOGICAL: Gross neurological examination did not reveal any focal deficits. SKIN: No rashes. - Labs CBC & Chem 7: 02/08/18 17:59 02/08/18 17:59 Assessment and Plan Plan: -Lower back pain, acute on chronic. Not controlled pain is the main problem of the patient, no weakness in the lower extremity. Computed tomography scan showing compression fraction of T11-T12 and L1 to L3. Put him on vitamin D and calcium. orthopedic consult is not available this week, and the recommend outpatient follow-up. Pain management (topical, oral and intravenous. See orders) -Epigastric abdominal pain and tenderness. Associated with retching or vomiting white mucus. And constipation for 2 days (resolving with medication). Computed tomography scan of the abdomen was unremarkable. order abdominal x- ray. surgical consult is appreciated , no surgical intervention is needed. family want his epigastric pain to be evaluated. we will call GI consult , we will call cardio team for evaluation as well , since he is known to their service and he saw Dr. latham 05/2017 -History of chronic atrial fibrillation, on eliquis. Heart rate controlled on medication. Continue same treatment. He follow-up with Dr. Granados as an outpatient -COPD, not in acute exacerbation DVT prophylaxis patient is an ELIQUIS GI prophylaxis on Protonix PT/OT: Pending Prognosis is guarded
--- NOTE | 2018-02-11 12:36 | P.CONS ---
History of Present Illness - Reason for Consult Consult date: 02/11/18 Abdominal pain Requesting physician: Rod E Sheet - History of Present Illness 87-year-old gentleman past medical history of cholecystectomy, chronic A. fib, SSS, COPD, pacemaker, basal cell carcinoma, remote peptic ulcer disease with surgical repair >30 years, admitted with abdominal back pain. Consult requested for abdominal pain. Patient states about 18 months ago he fell while visiting family in [place] fractured vertebrae and underwent vertebroplasty of his vertebrae. This past August he slipped fell reinjured his back but fortunately did not require surgery. Reports pain mostly in the lower left back and abdomen with increased constipation prior to admission. He has been taking pain medications for his back pain. He did have a bowel movement yesterday reports improvement in his abdominal pain today; presently no nausea, pain is mostly centered in the left lower back and he is wearing a back brace. Tolerating regular diet. Denies hematemesis hematochezia melena. No fever or chills. According to his he had some increased nausea over the past month with dry heaves not sure if it was pain related or not. Colonoscopy in the past but does not recall details. CT of the abdomen and pelvis reported an enlarged prostate 5 cm with multiple sigmoid diverticula but no evidence of diverticulitis. No signs of appendicitis. Compression fractures of L3, L2, L1, T12, T11 with vertebroplasty at L1. Mildly dilated biliary tree without obstructing lesion. CBD 13 mm. History of cholecystectomy clips are seen. Admission white count 5.4. Hemoglobin 14.5. LFTs amylase lipase within normal limits. He has been evaluated by general surgery no surgical plans at this time. Review of Systems Constitutional: Denies fever, chills, sweats, weight gain, or loss. HEENT: Negative for migraines, blurred vision or loss, earaches, drainage, tinnitus, oral mucosal lesions, dysphagia, or odynophagia. Cardiac: Negative for chest pain, arrhythmias, or palpitation. Respiratory: Negative for shortness of breath, hemoptysis, cough, or sputum production. Gastrointestinal: See HPI for pertinent findings. Genitourinary: Negative for hematuria, urgency, frequency, polyuria, dysuria, or penile discharge. Musculoskeletal: Chronic back pain Neurologic: Negative for stroke or TIA. Endocrine: Negative for thyroid problems. Skin: Negative for rash or itching. 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 History of Any Multi-Drug Resistant Organisms: None Reported Past Surgical History: Appendectomy, Cholecystectomy, Heart Catheterization, Pacemaker Additional Past Surgical History / Comment(s): MICHEAL CATARACTS, ULCER SX.HEMORROID SX, HAD DUAL PACEMAKER IMPLANTED (SICK SINUS SYNDROME,AV NODE DISEAE,TACHYBRADY SYNDROME.. Stomach surgery r/t ulcer Past Anesthesia/Blood Transfusion Reactions: No Reported Reaction Type of Cardiac Device: Permanent Pacemaker Device Placement Date:: 2013 Smoking Status: Former smoker - Past Family History Father Family Medical History: CVA/TIA Additional Family Medical History / Comment(s): NOT SURE IF HE HAD MINI STROKES OR HEART PROBLEM. DAD AT AGE 82 Mother Family Medical History: Diabetes Mellitus Additional Family Medical History / Comment(s): AT AGE 76 Medications and Allergies Home Medications Medication Instructions Recorded Confirmed Type Fluticasone/Salmeterol [Advair 1 puff INHALATION RT-BID 02/28/14 02/09/18 History 250-50 Diskus] Apixaban [Eliquis] 5 mg PO BID 05/20/17 02/09/18 History Acetaminophen Tab [Tylenol Tab] 1,000 mg PO Q6HR PRN 02/09/18 02/09/18 History Docusate [Colace] 100 mg PO DAILY 02/09/18 02/09/18 History Linaclotide [Linzess] 290 mcg PO DAILY 02/09/18 02/09/18 History Polyethylene Glycol 3350 [Miralax] 17 gm PO DAILY PRN 02/09/18 02/09/18 History Allergies Allergy/AdvReac Type Severity Reaction Status Date / Time codeine Allergy Intermediate Hallucinati Verified 02/08/18 22:24 ons prednisone AdvReac agitated Verified 02/08/18 22:24 Physical Exam Vitals: Vital Signs Temp Pulse Pulse Resp BP Pulse Ox 02/11/18 06:38 97.3 F L 72 14 118/56 95 02/10/18 23:04 98.6 F 88 16 121/65 94 L 02/10/18 21:20 98.6 F 103 H 16 145/73 95 02/10/18 20:00 16 02/10/18 16:00 92 14 90 L 02/10/18 15:25 97.7 F 92 14 131/64 84 L Intake and Output 02/10/18 02/11/18 02/11/18 22:59 06:59 14:59 Other: Voiding Method Toilet Urinal # Voids 3 2 Weight 66 kg General appearance: The patient is alert, oriented, in no acute distress. HET: Head is normocephalic and atraumatic. Pupils are equal and reactive. Oropharynx is clear without lesions. Neck: Supple without lymphadenopathy. Trachea midline. Heart: S1 S2. Regular rate and rhythm. Lungs: No crackles or wheezes are heard. Abdomen: Soft, nontender, nondistended with bowel sounds. No peritoneal signs. No palpable organomegaly or masses. Extremities: Back brace present. Soreness to the left lower back. Normal skin color and turgor. No cyanosis, rash, ulceration, clubbing, or edema. Radial and pedal pulses are 2/4 bilaterally. Neurological: No focal deficits. Strength and sensation are grossly intact. Results CBC & Chem 7: 02/08/18 17:59 02/08/18 17:59 CT scan - abdomen: report reviewed (Dr. Olsen) Assessment and Plan (1) Abdominal pain Narrative/Plan: 87-year-old male admitted with intermittent nausea left lower abdominal back pain with a history of falls fractured vertebrae vertebroplasty 18 months ago with reinjury [address] abdomen imaging reported a mildly dilated CBD 13 mm with no evidence of obstructing lesion and normal LFTs. Etiology of abdominal pain possibly constipative in nature no radiographic evidence of diverticulitis. Presently without nausea or vomiting tolerating regular diet with improvement in abdominal pain. Current Visit: Yes Status: Acute Code(s): R10.9 - UNSPECIFIED ABDOMINAL PAIN SNOMED Code(s): 35873384 (2) Back pain Current Visit: Yes Status: Acute Code(s): M54.9 - DORSALGIA, UNSPECIFIED SNOMED Code(s): 008404411 Plan: 1. Cautious use of narcotics for pain management as this may worsen his constipation. Continue with daily stool softeners; MiraLAX daily and Senokot 2 tabs twice a day. Endoscopic exams are not indicated at this time. Continue with regular diet supportive measures. Thank you for this kind referral and the opportunity to participate in the care of your patient. This consultation was discussed with Dr. Olsen. The impression and plan of care have been directed as dictated.
[2018-02-11] MEDS: SENNOSIDES-DOCUSATE SODIUM 1 EACH TAB PO SCH ×2 (13:41→21:17)
[2018-02-12] MEDS ORDERED: traMADol 50 MG TAB ONE (01:42)
[2018-02-12] MEDS: traMADol 50 MG TAB PO PRN ×5 (05:17→23:13)
[2018-02-12] MEDS: ACETAMINOPHEN TAB 500 MG TAB PO PRN (05:17)
[2018-02-12] MEDS: ONDANSETRON 4 MG/2 ML VIAL IVP SCH ×3 (05:46→21:26)
[2018-02-12] MEDS: SYMBICORT 80-4.5 MCG INHALER INHALATION SCH ×2 (07:26→19:30)
[2018-02-12] MEDS: APIXABAN 5 MG TAB PO SCH ×2 (08:10→21:25)
[2018-02-12] MEDS: CALCIUM CARB-VIT D 500MG-200UN 1 EACH TAB PO SCH ×2 (08:10→17:33)
[2018-02-12] MEDS: LIDOCAINE 5% PATCH TOPICAL SCH (08:10)
[2018-02-12] MEDS: PANTOPRAZOLE 40 MG TABLET PO SCH (08:10)
[2018-02-12] MEDS: DOCUSATE 100 MG CAP PO SCH (08:10)
[2018-02-12] MEDS: SENNOSIDES-DOCUSATE SODIUM 1 EACH TAB PO SCH ×2 (08:10→21:25)
--- NOTE | 2018-02-12 10:24 | P.CRDCN ---
History of Present Illness History of present illness: Mr. Crane is a pleasant 87-year-old male past medical history significant for atrial tachycardia/fibrillation on care home anticoagulation, COPD, history of tachy-jacinta syndrome s/p pacemaker insertion, basal cell carcinoma and peptic ulcer disease. He follows with Dr. Matias as an outpatient. We have been asked to see him in consultation for epigastric pain. He states he has had pain in his abdomen, lower back and epigastric region. He states he has been constipated for the past 3 days as well with intermittent nausea but no vomiting. He denies chest pain, shortness of breath, dizziness, palpitations or diaphoresis. He has been seen in consultation by surgery and GI services. No plans for invasive testing or scopes at this time. He states his pain is very fluid and moves from the lower abdomen to upper abdomen intermittently and is uncomfortable. EKG on admission reveals sinus tachycardia heart rate 102 with left anterior block and PVC's. CT abdomen/pelvis shows mildly dilated biliary tree and dilated common bile duct. Laboratory data reviewed, hemoglobin 14.5, platelets 126, sodium 137, potassium 4.5, creatinine 0.8, initial cardiac enzymes negative 1. Current cardiac medications include Eliquis 5 mg twice a day. Most recent echocardiogram performed in the office 11/2017 reveals preserved LV systolic function with no valvular abnormalities noted. Review of Systems At the time of my exam: CONSTITUTIONAL: Denies fever. Denies chills. EYES: Denies blurred vision. Denies vision changes. Denies eye pain. EARS, NOSE, MOUTH & THROAT: Denies headache. Denies sore throat. Denies ear pain. CARDIOVASCULAR: Denies chest pain. Denies shortness of breath. Denies orthopnea. Denies PND. Denies palpitations. RESPIRATORY: Denies cough. GASTROINTESTINAL: Complains of diffuse abdominal pain. Denies diarrhea. Complains of constipation x3 days. Complains of nausea. Denies vomiting. MUSCULOSKELETAL: Denies myalgias. INTEGUMENTARY: Denies pruitis. Denies rash. NEUROLOGIC: Denies numbness. Denies tingling. Denies weakness. PSYCHIATRIC: Denies anxiety. Denies depression. ENDOCRINE: Denies fatigue. Denies weight change. Denies polydipsia. Denies polyurina. GENITOURINARY: Denies burning, hematuria or urgency with micturation. HEMATOLOGIC: Denies history of anemia. Denies bleeding. 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 History of Any Multi-Drug Resistant Organisms: None Reported Past Surgical History: Appendectomy, Cholecystectomy, Heart Catheterization, Pacemaker Additional Past Surgical History / Comment(s): MICHEAL CATARACTS, ULCER SX.HEMORROID SX, HAD DUAL PACEMAKER IMPLANTED (SICK SINUS SYNDROME,AV NODE DISEAE,TACHYBRADY SYNDROME.. Stomach surgery r/t ulcer Past Anesthesia/Blood Transfusion Reactions: No Reported Reaction Type of Cardiac Device: Permanent Pacemaker Device Placement Date:: 2013 Smoking Status: Former smoker - Past Family History Father Family Medical History: CVA/TIA Additional Family Medical History / Comment(s): NOT SURE IF HE HAD MINI STROKES OR HEART PROBLEM. DAD AT AGE 82 Mother Family Medical History: Diabetes Mellitus Additional Family Medical History / Comment(s): AT AGE 76 Medications and Allergies Home Medications Medication Instructions Recorded Confirmed Type Fluticasone/Salmeterol [Advair 1 puff INHALATION RT-BID 02/28/14 02/09/18 History 250-50 Diskus] Apixaban [Eliquis] 5 mg PO BID 05/20/17 02/09/18 History Acetaminophen Tab [Tylenol Tab] 1,000 mg PO Q6HR PRN 02/09/18 02/09/18 History Docusate [Colace] 100 mg PO DAILY 02/09/18 02/09/18 History Linaclotide [Linzess] 290 mcg PO DAILY 02/09/18 02/09/18 History Polyethylene Glycol 3350 [Miralax] 17 gm PO DAILY PRN 02/09/18 02/09/18 History Allergies Allergy/AdvReac Type Severity Reaction Status Date / Time codeine Allergy Intermediate Hallucinati Verified 02/08/18 22:24 ons prednisone AdvReac agitated Verified 02/08/18 22:24 Physical Exam Vitals: Vital Signs Temp Pulse Resp BP Pulse Ox 02/12/18 06:16 96.4 F L 77 16 142/66 95 02/11/18 23:00 97.4 F L 78 16 126/61 02/11/18 15:00 98.0 F 96 20 126/72 96 Intake and Output 02/11/18 02/12/18 02/12/18 22:59 06:59 14:59 Output Total 150 Balance -150 Output: Urine 150 Other: Voiding Method Toilet Urinal # Voids 2 Weight 67 kg Blood pressure 142/66 heart rate 77 afebrile maintaining oxygen saturation on room air. GENERAL: This is a 87-year-old male in no apparent distress at the time of my examination. HEENT: Head is atraumatic, normocephalic. Pupils are equal, round. Sclerae anicteric. Conjunctivae are clear. Mucous membranes of the mouth are moist. Neck is supple. There is no jugular venous distention. No carotid bruit is heard. LUNGS: Clear to auscultation no wheezes, rales or rhonchi. No chest wall tenderness is noted on palpation or with deep breathing. HEART: Regular rate and rhythm without murmurs, rubs or gallops. S1 and S2 heard. ABDOMEN: Soft, nontender. Bowel sounds are heard. No organomegaly noted. EXTREMITIES: No evidence of peripheral edema and no calf tenderness noted. VASCULAR: Radial and dorsalis pedis pulses palpated, no evidence of clubbing. NEUROLOGIC: Patient is awake, alert and oriented x3. Results 02/08/18 17:59 02/08/18 17:59 Current Medications Generic Name Dose Route Start Last Admin Trade Name Freq PRN Reason Stop Dose Admin Acetaminophen 1,000 mg 02/09/18 11:12 02/12/18 05:17 Tylenol Tab PO 1,000 mg Q6HR PRN Administration Mild Pain Apixaban 5 mg 02/09/18 11:15 02/12/18 08:10 Eliquis PO 5 mg BID RYAN Administration Budesonide/Formoterol Fumarate 2 puff 02/09/18 20:00 02/12/18 07:26 Symbicort 80-4.5 Mcg Inhaler INHALATION 2 puff RT-BID RYAN Administration Calcium Carbonate 2 each 02/09/18 17:30 02/12/18 08:10 Oscal 500+D PO 2 each BID-W/MEALS RYAN Administration Docusate Sodium 100 mg 02/09/18 11:15 02/12/18 08:10 Colace PO 100 mg DAILY RYAN Administration Lidocaine 1 patch 02/10/18 12:45 02/12/18 08:10 Lidoderm TOPICAL 1 patch DAILY RYAN Administration Naloxone HCl 0.2 mg 02/08/18 21:33 Narcan IV Q2M PRN Opioid Reversal Linaclotide [Linzess 290 mcg 02/09/18 11:15 02/12/18 08:10 ] 290 Mcg PO Not Given DAILY RYAN Ondansetron HCl 4 mg 02/08/18 22:00 02/12/18 05:46 Zofran IVP Not Given Q8H RYAN Pantoprazole Sodium 40 mg 02/12/18 07:30 02/12/18 08:10 Protonix PO 40 mg AC-[id number] RYAN Administration Polyethylene Glycol 17 gm 02/09/18 11:12 Miralax PO DAILY PRN Constipation Senna/Docusate Sodium 2 each 02/11/18 12:45 02/12/18 08:10 Senokot-S PO 2 each BID RYAN Administration Tramadol HCl 50 mg 02/10/18 12:26 02/12/18 05:17 Ultram PO 50 mg Q4HR PRN Administration Moderate Pain Intake and Output 02/11/18 02/12/18 02/12/18 22:59 06:59 14:59 Output Total 150 Balance -150 Output: Urine 150 Other: Voiding Method Toilet Urinal # Voids 2 Weight 67 kg 02/08/18 17:59 02/08/18 17:59 Assessment and Plan Assessment: ASSESSMENT Epigastric pain, atypical for coronary etiology with other symptoms of lower abdominal and lower back pain. 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 COPD PLAN We will not repeat an echo on this admission with recent normal study performed in the office. Check a second troponin and repeat EKG to rule out an acute coronary event. Ongoing medical management of abdominal concerns. Thank you kindly for this consultation. The above impression and plan of care have been discussed and directed by the signing physician. Bela Potter, nurse practitioner, acting as scribe for signing physician.
[2018-02-12 11:57] LABS: Anion Gap 8 mmol/L; Blood Urea Nitrogen 16 mg/dL (9-20); Calcium 9.4 mg/dL (8.4-10.2); Carbon Dioxide 27 mmol/L (22-30); Chloride 100 mmol/L (98-107); Glucose 127 mg/dL (74-99); Potassium 4.1 mmol/L (3.5-5.1); Sodium 135 mmol/L (137-145)
[2018-02-12] MEDS ORDERED: NA PHOS,M-B/NA PHOS,DI-BA 133 ML ENEMA RECTAL ONE (12:31)
[2018-02-12] MEDS: SUCRALFATE 1 GM TAB PO SCH ×2 (12:41→17:33)
[2018-02-12] MEDS ORDERED: MAGNESIUM CITRATE 296 ML BOTTLE PO ONE (13:00)
[2018-02-12] MEDS: BISACODYL 10 MG SUPP RECTAL STA ×2 (13:06→13:09)
--- NOTE | 2018-02-12 20:25 | P.PN ---
Subjective This is a pleasant 57 years old male with past medical history of chronic atrial fibrillation, COPD, status post pacemaker, basal cell carcinoma of the skin status post resection, peptic ulcer disease, history of coronary artery disease status post cardiac cath. Presents because of abdominal pain Patient states he has 2 pain and swelling in his lower back and one in his abdomin, in August 2017 he slipped on ice and twisted his back, followed by lower back pain which got worse after he was trying to lift a ladder and since then he has been fluctuating in pain. Patient was taking narcotics however he stopped his hydrocodone about 6 weeks ago. Patient also complains from 2 months history of nonspecific abdominal pain mainly on the left side radiating to the right side to person upper abdomen, slight sharp knife in character. Relieved by moving his bowel, over the last 3 days became more severe. Associated with vomiting white mucus stuff several times yesterday. Patient didn't have a bowel movement over the last 2 days. Patient denies weakness in his lower extremity and hip was noticed he is walking the hallway using his walker. He complains from some numbness, mild behind his left leg and thigh. In the ED his blood pressure was on the low side, CBC was unremarkable except for low platelets at 126, which is chronic. BMP was unremarkable except for high glucose mildly at 118. UA was negative for infection. CT of the abdomen and pelvis shows compression fraction of of 3 to L1 and T12 to T11 with osteopenia. Gallbladder absence with markedly dilated bile duct 02/10/2018 Patient abdominal pain is minimal. Patient having bowel movement which is kind of fluids after he got several bowel regiment. And he is taken prone juice. Surgical evaluation is appreciated call on no need for surgical intervention. Patient is still complaining of from significant pain and he's pointing to the side of the lower back, at this point tenderness and a small area about 1-2 inches, which was marked. This pain is radiating to the front across the side, rather than abdominal pain. Patient states that this is the pain is really bothering him since August and that he went to couple doctors but they couldn' t help him which their therapies. Patient denies urine or bowel incontinence. He denies nausea vomiting but he has some retching. Patient denies weakness in his legs. Patient is noticed walking the hallway using his walker. Unfortunately the orthopedic for back pain Dr. Beasley is not available this hospital for this week. And the recommended outpatient follow-up in 1 week. PT /OT is ongoing 02/11/2018 Patient still have mild epigastric pain and tenderness, 2/10 in severity. His dry heaves/retching have stopped since yesterday. He is having some bowel movements with bowel regimens. He had a small 1 which was semi-solid. But he didn't have bowel movements this morning. I had long discussions with the patient's and son at bedside according to the patient's request. And they like to call for GI team to evaluate the patient's before discharge. His back pain is improving, going across the abdomen to the right side ( mild), it was 10/10 in severity on admission. and now 6/10 in severity with pain management. he had a brace prescribed to him but he was not wearing it. it was brought by hospital staff for the pt and he is wearing it today Was taking IV morphine and Ultram. We'll DC the IV morphine and continue Ultram by mouth every 4 hours. Patient instructed to ask for pain pills when he needs it and he verbalized understanding and acceptance. pt was instructed how to use it. Family was not at bedside this morning 02/12/2018 pt back pain is more controlled today and is minimal giovanni if pt lies on his left side, he is more complaining from abd pain 4/10 in severity as per pt , GI , surgery consultation is appreciated , most likely pt is suffering from constipation , pt she still thinks he needs to be evaluated for ulcer disease , however she agrees to try bowel regimen like dulcolax and later mg citrate hoping this will help his bowel movement , pt last BM was 2 days ago CONSTITUTIONAL: No fever, no malaise, no fatigue. HEENT: No recent visual problems or hearing problems. Denied any sore throat. CARDIOVASCULAR: No orthopnea, PND, no palpitations, no syncope. PULMONARY: No shortness of breath, no cough, no hemoptysis. GASTROINTESTINAL: No diarrhea, no nausea, no vomiting. Normoactive bowel sounds. NEUROLOGICAL: No headaches, no weakness, no numbness. HEMATOLOGICAL: Denies any bleeding or petechiae. GENITOURINARY: Denies any burning micturition, frequency, or urgency. MUSCULOSKELETAL/RHEUMATOLOGICAL: Denies any joint pain, swelling, ENDOCRINE: Denies any polyuria or polydipsia. Medication with dosages are reviewed: Tylenol, liquids, Symbicort, calcium carbonate, Colace, Lidoderm, linzess, Zofran, Protonix, MiraLAX, Ultram. Objective - Vital Signs Vital signs: Vital Signs Temp 98.3 F 02/12/18 14:35 Pulse 69 02/12/18 14:35 Resp 16 02/12/18 15:03 BP 130/69 02/12/18 14:35 Pulse Ox 88 L 02/12/18 14:35 Intake & Output 02/12/18 02/12/18 02/13/18 06:59 18:59 06:59 Output Total 150 Balance -150 Weight 67 kg Output: Urine 150 Other: Voiding Method Toilet Urinal # Voids 2 2 - Exam GENERAL: The patient is alert and oriented x3, not in any acute distress. Well developed, well nourished. HEENT: Pupils are round and equally reacting to light. EOMI. No scleral icterus. No conjunctival pallor. Normocephalic, atraumatic. No pharyngeal erythema. No thyromegaly. CARDIOVASCULAR: S1 and S2 present. No murmurs, rubs, or gallops. PULMONARY: Chest is clear to auscultation, no wheezing or crackles. -ABDOMEN: Soft, mild epigastric tenderness, no rebound tenderness. nondistended , normoactive bowel sounds. No palpable organomegaly. MUSCULOSKELETAL: No joint swelling or deformity. -Patient has point tenderness in the lower back to the left side, about 1-2 inches in size. (Area is demarcated). EXTREMITIES: No cyanosis, clubbing, or pedal edema. NEUROLOGICAL: Gross neurological examination did not reveal any focal deficits. SKIN: No rashes. - Labs CBC & Chem 7: 02/08/18 17:59 02/12/18 10:26 Labs: Abnormal Lab Results - Last 24 Hours (Table) 02/12/18 Range/Units 10:26 Sodium 135 L (137-145) mmol/L Glucose 127 H (74-99) mg/dL Assessment and Plan Plan: -Lower back pain, acute on chronic. Not controlled pain is the main problem of the patient, no weakness in the lower extremity. Computed tomography scan showing compression fraction of T11-T12 and L1 to L3. Put him on vitamin D and calcium. orthopedic consult is not available this week, and the recommend outpatient follow-up. Pain management (topical, oral and intravenous. See orders) -Epigastric abdominal pain and tenderness. Associated with retching or vomiting white mucus. And constipation for 2 days (given medication). Computed tomography scan of the abdomen was unremarkable. order abdominal x-ray. surgical and GI consult is appreciated , no surgical intervention/procedure is needed. family want his epigastric pain to be evaluated. cardio team input is appreciated , negative EKG and se, since he is known to their service and he saw Dr. latham 05/2017 -History of chronic atrial fibrillation, on eliquis. Heart rate controlled on medication. Continue same treatment. He follow-up with Dr. Granados as an outpatient -COPD, not in acute exacerbation DVT prophylaxis patient is an ELIQUIS GI prophylaxis on Protonix PT/OT: Pending Prognosis is guarded
[2018-02-13] MEDS: traMADol 50 MG TAB PO PRN ×3 (04:28→19:52)
[2018-02-13] MEDS: ONDANSETRON 4 MG/2 ML VIAL IVP SCH ×3 (05:58→19:58)
[2018-02-13] MEDS: SYMBICORT 80-4.5 MCG INHALER INHALATION SCH ×2 (07:39→20:28)
[2018-02-13] MEDS: SENNOSIDES-DOCUSATE SODIUM 1 EACH TAB PO SCH ×2 (07:56→19:52)
[2018-02-13] MEDS: CALCIUM CARB-VIT D 500MG-200UN 1 EACH TAB PO SCH ×2 (07:56→17:25)
[2018-02-13] MEDS: LIDOCAINE 5% PATCH TOPICAL SCH (07:56)
[2018-02-13] MEDS: PANTOPRAZOLE 40 MG TABLET PO SCH (07:56)
[2018-02-13] MEDS: DOCUSATE 100 MG CAP PO SCH (07:56)
[2018-02-13] MEDS: APIXABAN 5 MG TAB PO SCH (07:56)
[2018-02-13] MEDS: SUCRALFATE 1 GM TAB PO SCH ×2 (07:57→17:25)
[2018-02-13 09:24] VITALS: BMI 22.8
--- NOTE | 2018-02-13 11:43 | P.PN ---
Subjective Progress Note Date: 02/13/18 Principal diagnosis: Abdominal pain 87-year-old male admitted with abdominal back pain. Bowel movement tends to last night. Still reports abdominal pain. No bleeding. Afebrile. Denies hematemesis or dyschezia or melena. Family requesting EGD colonoscopy. Objective - Vital Signs Vital signs: Vital Signs Temp 98.0 F 02/13/18 07:00 Pulse 96 02/13/18 07:00 Resp 16 02/13/18 07:00 BP 106/56 02/13/18 07:00 Pulse Ox 91 L 02/13/18 07:00 Intake & Output 02/12/18 02/13/18 02/13/18 18:59 06:59 18:59 Weight 66 kg 66 kg Other: Voiding Method Toilet Urinal # Voids 2 200 # Bowel Movements 2 - Exam General appearance: The patient is alert, oriented, in no acute distress. HET: Head is normocephalic and atraumatic. Pupils are equal and reactive. Oropharynx is clear without lesions. Neck: Supple without lymphadenopathy. Trachea midline. Heart: S1 S2. Regular rate and rhythm. Lungs: No crackles or wheezes are heard. Abdomen: Soft, mild tenderness to the midabdomen and lower back, nondistended with bowel sounds. No peritoneal signs. No palpable organomegaly or masses. Extremities: Normal skin color and turgor. No cyanosis, rash, ulceration, clubbing, or edema. Radial and pedal pulses are 2/4 bilaterally. Neurological: No focal deficits. Strength and sensation are grossly intact. - Labs CBC & Chem 7: 02/08/18 17:59 02/12/18 10:26 Labs: Abnormal Lab Results - Last 24 Hours (Table) 02/12/18 Range/Units 10:26 Sodium 135 L (137-145) mmol/L Glucose 127 H (74-99) mg/dL Assessment and Plan (1) Abdominal pain Narrative/Plan: 87-year-old male admitted with intermittent nausea left lower abdominal back pain with a history of falls fractured vertebrae vertebroplasty 18 months ago with reinjury [address] abdomen imaging reported a mildly dilated CBD 13 mm with no evidence of obstructing lesion and normal LFTs. Etiology of abdominal pain possibly constipative in nature no radiographic evidence of diverticulitis. Presently without nausea or vomiting tolerating regular diet with improvement in abdominal pain. Current Visit: Yes Status: Acute Code(s): R10.9 - UNSPECIFIED ABDOMINAL PAIN SNOMED Code(s): 31862340 (2) Back pain Current Visit: Yes Status: Acute Code(s): M54.9 - DORSALGIA, UNSPECIFIED SNOMED Code(s): 860320460 Plan: 1. EGD colonoscopy was discussed will be pursued on Friday. Continue with daily stool softeners; MiraLAX daily and Senokot 2 tabs twice a day. Continue with regular diet supportive measures. Start clear liquids in am. Assessment and plan a care discussed with Dr. Olsen
[2018-02-13] MEDS: ACETAMINOPHEN TAB 500 MG TAB PO PRN (13:59)
--- NOTE | 2018-02-13 14:04 | P.PN ---
Subjective Mr. Crane is seen and examined resting comfortably in bed. He denies any further symptoms of chest pain. He continues to complain of lower abdominal discomfort and states he did have a bowel movement yesterday. Second troponin negative. An acute coronary event has been ruled out. GI is considering endoscopy. Blood pressure 106/56 heart rate 96 afebrile and maintaining oxygen saturation on nasal cannula. Objective - Vital Signs Vital signs: Vital Signs Temp 98.0 F 02/13/18 07:00 Pulse 96 02/13/18 07:00 Resp 16 02/13/18 07:00 BP 106/56 02/13/18 07:00 Pulse Ox 91 L 02/13/18 07:00 Intake & Output 02/12/18 02/13/18 02/13/18 18:59 06:59 18:59 Weight 66 kg 66 kg Other: Voiding Method Toilet Urinal # Voids 2 200 # Bowel Movements 2 - Exam GENERAL: Well-appearing, well-nourished and in no acute distress. NECK: Supple without JVD or thyromegaly. LUNGS: Breath sounds clear to auscultation bilaterally. Respiration equal and unlabored. No wheezes, rales or rhonchi. HEART: Regular rate and rhythm without murmurs, rubs or gallops. S1 and S2 heard. EXTREMITIES: Normal range of motion, no edema. No clubbing or cyanosis. Peripheral pulses intact. - Labs CBC & Chem 7: 02/08/18 17:59 02/12/18 10:26 Assessment and Plan Assessment: ASSESSMENT Epigastric pain, atypical for coronary etiology with other symptoms of lower abdominal and lower back pain. History of tachy/jacinta syndrome s/p permanent pacemaker insertion Paroxysmal atrial tachycardia/fibrillation on fdc anticoagulation currently maintaining sinus mechanism. COPD PLAN Stable from a cardiac perspective. An acute coronary event has been ruled out. Ongoing medical management of abdominal pain. Follow up with Dr. Matias in 2-3 weeks. We will continue to follow as needed. The above impression and plan of care have been discussed and directed by the signing physician. Bela Potter, nurse practitioner, acting as scribe for signing physician.
--- NOTE | 2018-02-13 23:54 | P.PN ---
Subjective This is a pleasant 57 years old male with past medical history of chronic atrial fibrillation, COPD, status post pacemaker, basal cell carcinoma of the skin status post resection, peptic ulcer disease, history of coronary artery disease status post cardiac cath. Presents because of abdominal pain Patient states he has 2 pain and swelling in his lower back and one in his abdomin, in August 2017 he slipped on ice and twisted his back, followed by lower back pain which got worse after he was trying to lift a ladder and since then he has been fluctuating in pain. Patient was taking narcotics however he stopped his hydrocodone about 6 weeks ago. Patient also complains from 2 months history of nonspecific abdominal pain mainly on the left side radiating to the right side to person upper abdomen, slight sharp knife in character. Relieved by moving his bowel, over the last 3 days became more severe. Associated with vomiting white mucus stuff several times yesterday. Patient didn't have a bowel movement over the last 2 days. Patient denies weakness in his lower extremity and hip was noticed he is walking the hallway using his walker. He complains from some numbness, mild behind his left leg and thigh. In the ED his blood pressure was on the low side, CBC was unremarkable except for low platelets at 126, which is chronic. BMP was unremarkable except for high glucose mildly at 118. UA was negative for infection. CT of the abdomen and pelvis shows compression fraction of of 3 to L1 and T12 to T11 with osteopenia. Gallbladder absence with markedly dilated bile duct 02/10/2018 Patient abdominal pain is minimal. Patient having bowel movement which is kind of fluids after he got several bowel regiment. And he is taken prone juice. Surgical evaluation is appreciated call on no need for surgical intervention. Patient is still complaining of from significant pain and he's pointing to the side of the lower back, at this point tenderness and a small area about 1-2 inches, which was marked. This pain is radiating to the front across the side, rather than abdominal pain. Patient states that this is the pain is really bothering him since August and that he went to couple doctors but they couldn' t help him which their therapies. Patient denies urine or bowel incontinence. He denies nausea vomiting but he has some retching. Patient denies weakness in his legs. Patient is noticed walking the hallway using his walker. Unfortunately the orthopedic for back pain Dr. Beasley is not available this hospital for this week. And the recommended outpatient follow-up in 1 week. PT /OT is ongoing 02/11/2018 Patient still have mild epigastric pain and tenderness, 2/10 in severity. His dry heaves/retching have stopped since yesterday. He is having some bowel movements with bowel regimens. He had a small 1 which was semi-solid. But he didn't have bowel movements this morning. I had long discussions with the patient's and son at bedside according to the patient's request. And they like to call for GI team to evaluate the patient's before discharge. His back pain is improving, going across the abdomen to the right side ( mild), it was 10/10 in severity on admission. and now 6/10 in severity with pain management. he had a brace prescribed to him but he was not wearing it. it was brought by hospital staff for the pt and he is wearing it today Was taking IV morphine and Ultram. We'll DC the IV morphine and continue Ultram by mouth every 4 hours. Patient instructed to ask for pain pills when he needs it and he verbalized understanding and acceptance. pt was instructed how to use it. Family was not at bedside this morning 02/12/2018 pt back pain is more controlled today and is minimal giovanni if pt lies on his left side, he is more complaining from abd pain 4/10 in severity as per pt , GI , surgery consultation is appreciated , most likely pt is suffering from constipation , pt she still thinks he needs to be evaluated for ulcer disease , however she agrees to try bowel regimen like dulcolax and later mg citrate hoping this will help his bowel movement , pt last BM was 2 days ago 02/13/2018 pt is still having abd pain after bowel movement , GI team are following the pt CONSTITUTIONAL: No fever, no malaise, no fatigue. HEENT: No recent visual problems or hearing problems. Denied any sore throat. CARDIOVASCULAR: No orthopnea, PND, no palpitations, no syncope. PULMONARY: No shortness of breath, no cough, no hemoptysis. GASTROINTESTINAL: No diarrhea, no nausea, no vomiting. Normoactive bowel sounds. NEUROLOGICAL: No headaches, no weakness, no numbness. HEMATOLOGICAL: Denies any bleeding or petechiae. GENITOURINARY: Denies any burning micturition, frequency, or urgency. MUSCULOSKELETAL/RHEUMATOLOGICAL: Denies any joint pain, swelling, ENDOCRINE: Denies any polyuria or polydipsia. Medication with dosages are reviewed: Tylenol, liquids, Symbicort, calcium carbonate, Colace, Lidoderm, linzess, Zofran, Protonix, MiraLAX, Ultram. Objective - Vital Signs Vital signs: Vital Signs Temp 98.6 F 02/13/18 15:00 Pulse 83 02/13/18 15:00 Resp 18 02/13/18 15:00 BP 113/67 02/13/18 15:00 Pulse Ox 96 02/13/18 15:00 Intake & Output 02/13/18 02/13/18 02/14/18 06:59 18:59 06:59 Weight 66 kg 66 kg 66 kg Other: Voiding Method Toilet Toilet Urinal Urinal # Voids 200 2 # Bowel Movements 2 0 0 - Exam GENERAL: The patient is alert and oriented x3, not in any acute distress. Well developed, well nourished. HEENT: Pupils are round and equally reacting to light. EOMI. No scleral icterus. No conjunctival pallor. Normocephalic, atraumatic. No pharyngeal erythema. No thyromegaly. CARDIOVASCULAR: S1 and S2 present. No murmurs, rubs, or gallops. PULMONARY: Chest is clear to auscultation, no wheezing or crackles. -ABDOMEN: Soft, mild epigastric tenderness, no rebound tenderness. nondistended , normoactive bowel sounds. No palpable organomegaly. MUSCULOSKELETAL: No joint swelling or deformity. -Patient has point tenderness in the lower back to the left side, about 1-2 inches in size. (Area is demarcated). EXTREMITIES: No cyanosis, clubbing, or pedal edema. NEUROLOGICAL: Gross neurological examination did not reveal any focal deficits. SKIN: No rashes. - Labs CBC & Chem 7: 02/08/18 17:59 02/12/18 10:26 Assessment and Plan Plan: -Lower back pain, acute on chronic. Not controlled pain is the main problem of the patient, no weakness in the lower extremity. Computed tomography scan showing compression fraction of T11-T12 and L1 to L3. Put him on vitamin D and calcium. orthopedic consult is not available this week, and the recommend outpatient follow-up. Pain management (topical, oral and intravenous. See orders) -Epigastric abdominal pain and tenderness. Associated with retching or vomiting white mucus. And constipation for 2 days (given medication). Computed tomography scan of the abdomen was unremarkable. order abdominal x-ray. surgical and GI consult is appreciated , no surgical intervention/procedure is needed. family want his epigastric pain to be evaluated. cardio team input is appreciated , negative EKG and se, since he is known to their service and he saw Dr. latham 05/2017 -History of chronic atrial fibrillation, on eliquis. Heart rate controlled on medication. Continue same treatment. He follow-up with Dr. Granados as an outpatient -COPD, not in acute exacerbation DVT prophylaxis patient is an ELIQUIS GI prophylaxis on Protonix PT/OT: Pending Prognosis is guarded
[2018-02-14] MEDS: traMADol 50 MG TAB PO PRN ×3 (00:44→20:11)
[2018-02-14] MEDS: ONDANSETRON 4 MG/2 ML VIAL IVP SCH ×3 (06:09→20:11)
[2018-02-14] MEDS: SYMBICORT 80-4.5 MCG INHALER INHALATION SCH ×2 (07:44→20:33)
[2018-02-14] MEDS: CALCIUM CARB-VIT D 500MG-200UN 1 EACH TAB PO SCH ×2 (07:47→17:33)
[2018-02-14] MEDS: DOCUSATE 100 MG CAP PO SCH (07:47)
[2018-02-14] MEDS: SUCRALFATE 1 GM TAB PO SCH ×2 (07:47→17:33)
[2018-02-14] MEDS: LIDOCAINE 5% PATCH TOPICAL SCH (07:47)
[2018-02-14] MEDS: PANTOPRAZOLE 40 MG TABLET PO SCH (07:47)
[2018-02-14] MEDS: SENNOSIDES-DOCUSATE SODIUM 1 EACH TAB PO SCH ×2 (07:47→20:12)
[2018-02-14 08:09] LABS: INR 1.1 (<1.2); Prothrombin Time 10.7 sec (9.0-12.0)
[2018-02-14 08:14] LABS: Basophils % (A) 0 %; Eosinophils # (A) 0.2 k/uL (0-0.7); Eosinophils % (A) 5 %; HCT 41.5 % (39.0-53.0); HGB 13.8 gm/dL (13.0-17.5); Lymphocytes # (A) 1.1 k/uL (1.0-4.8); Lymphocytes % (A) 23 %; MCH 28.9 pg (25.0-35.0); MCHC 33.1 g/dL (31.0-37.0); MCV 87.3 fL (80.0-100.0); Monocytes # (A) 0.4 k/uL (0-1.0); Monocytes % (A) 8 %; Neutrophils # (A) 2.8 k/uL (1.3-7.7); Neutrophils % (A) 60 %; Platelet Count 149 k/uL (150-450); RBC 4.76 m/uL (4.30-5.90); RDW 13.5 % (11.5-15.5); WBC 4.7 k/uL (3.8-10.6)
[2018-02-14] MEDS: HYDROcodone/APAP 5-325MG 1 EACH TAB PO PRN ×2 (14:28→23:42)
[2018-02-14] MEDS ORDERED: PEG 3350-NA SULF,BICARB,CL/KCL 4,000 ML BOTTLE PO ONE (15:00)
--- NOTE | 2018-02-14 16:44 | PN ---
PROGRESS NOTE REQUESTING PHYSICIAN: Dr. Stevens and Dr. Sy The patient is an 87-year-old pleasant white male admitted to the hospital with abdominal pain and back pain for the last 3-4 years duration. The pain mostly in the lower abdominal area associated with some constipation. The pain is much worse. He describes it mostly in the left side radiating to the left lower quadrant area associated with some nausea but no emesis. He had one bowel movement this morning. He denies any nausea, vomiting. The patient is scheduled for an EGD and colonoscopy tomorrow. CT scan of the abdomen and pelvis was unremarkable. PHYSICAL EXAMINATION: He appears comfortable. Vital signs are stable. Blood pressure 182/87m, pulse rate 81, temperature 97. HEENT examination unremarkable. Conjunctivae pink. Sclerae anicteric. Oral cavity, no lesions. NECK: No JVD or lymph node enlargement. Chest was clear to auscultation. HEART: Regular rate and rhythm. Abdomen is soft. It was nontender, nondistended. Bowel sounds are positive. No organomegaly. EXTREMITIES: No pedal edema. SKIN: No rashes. NEURO: Alert and oriented. No focal deficits. LABS: WBC 4.7, hemoglobin 13.8, platelets are 149. Basic metabolic panel is within normal limits. IMPRESSION: years duration. The patient states the symptoms recently have been getting worse with constipation, but no rectal bleeding. CT of the abdomen and pelvis was unremarkable. Labs are completely within normal limits. RECOMMENDATIONS: Will proceed with EGD and colonoscopy tomorrow. I discussed with the patient risks, benefits and complications and he is agreeable to it. MMODL / IJN: [id number] /
--- NOTE | 2018-02-14 22:20 | P.PN ---
Subjective This is a pleasant 57 years old male with past medical history of chronic atrial fibrillation, COPD, status post pacemaker, basal cell carcinoma of the skin status post resection, peptic ulcer disease, history of coronary artery disease status post cardiac cath. Presents because of abdominal pain Patient states he has 2 pain and swelling in his lower back and one in his abdomin, in August 2017 he slipped on ice and twisted his back, followed by lower back pain which got worse after he was trying to lift a ladder and since then he has been fluctuating in pain. Patient was taking narcotics however he stopped his hydrocodone about 6 weeks ago. Patient also complains from 2 months history of nonspecific abdominal pain mainly on the left side radiating to the right side to person upper abdomen, slight sharp knife in character. Relieved by moving his bowel, over the last 3 days became more severe. Associated with vomiting white mucus stuff several times yesterday. Patient didn't have a bowel movement over the last 2 days. Patient denies weakness in his lower extremity and hip was noticed he is walking the hallway using his walker. He complains from some numbness, mild behind his left leg and thigh. In the ED his blood pressure was on the low side, CBC was unremarkable except for low platelets at 126, which is chronic. BMP was unremarkable except for high glucose mildly at 118. UA was negative for infection. CT of the abdomen and pelvis shows compression fraction of of 3 to L1 and T12 to T11 with osteopenia. Gallbladder absence with markedly dilated bile duct 02/10/2018 Patient abdominal pain is minimal. Patient having bowel movement which is kind of fluids after he got several bowel regiment. And he is taken prone juice. Surgical evaluation is appreciated call on no need for surgical intervention. Patient is still complaining of from significant pain and he's pointing to the side of the lower back, at this point tenderness and a small area about 1-2 inches, which was marked. This pain is radiating to the front across the side, rather than abdominal pain. Patient states that this is the pain is really bothering him since August and that he went to couple doctors but they couldn' t help him which their therapies. Patient denies urine or bowel incontinence. He denies nausea vomiting but he has some retching. Patient denies weakness in his legs. Patient is noticed walking the hallway using his walker. Unfortunately the orthopedic for back pain Dr. Pasia is not available this hospital for this week. And the recommended outpatient follow-up in 1 week. PT /OT is ongoing 02/11/2018 Patient still have mild epigastric pain and tenderness, 2/10 in severity. His dry heaves/retching have stopped since yesterday. He is having some bowel movements with bowel regimens. He had a small 1 which was semi-solid. But he didn't have bowel movements this morning. I had long discussions with the patient's and son at bedside according to the patient's request. And they like to call for GI team to evaluate the patient's before discharge. His back pain is improving, going across the abdomen to the right side ( mild), it was 10/10 in severity on admission. and now 6/10 in severity with pain management. he had a brace prescribed to him but he was not wearing it. it was brought by hospital staff for the pt and he is wearing it today Was taking IV morphine and Ultram. We'll DC the IV morphine and continue Ultram by mouth every 4 hours. Patient instructed to ask for pain pills when he needs it and he verbalized understanding and acceptance. pt was instructed how to use it. Family was not at bedside this morning 02/12/2018 pt back pain is more controlled today and is minimal giovanni if pt lies on his left side, he is more complaining from abd pain 4/10 in severity as per pt , GI , surgery consultation is appreciated , most likely pt is suffering from constipation , pt she still thinks he needs to be evaluated for ulcer disease , however she agrees to try bowel regimen like dulcolax and later mg citrate hoping this will help his bowel movement , pt last BM was 2 days ago 02/13/2018 pt is still having abd pain after bowel movement , GI team are following the pt 02/14/2018 pt still has significant abdominal pain , his ultram became ineffective and meds were switched to noroc 5-325 mg. pt is going for EGD/Colonoscopy tomorrow . Objective - Vital Signs Vital signs: Vital Signs Temp 98.0 F 02/14/18 14:40 Pulse 108 H 02/14/18 14:40 Resp 16 02/14/18 14:40 BP 133/95 02/14/18 14:40 Pulse Ox 90 L 02/14/18 14:40 Intake & Output 0702/14/18 02/15/18 06:59 18:59 06:59 Intake Total 500 Output Total 1000 Balance -500 Weight 65.5 kg 65.5 kg Intake: Oral 500 Output: Urine 1000 Other: Voiding Method Toilet Toilet Bedside Commode Urinal Urinal Urinal # Voids 2 # Bowel Movements 0 0 - Exam GENERAL: The patient is alert and oriented x3, not in any acute distress. Well developed, well nourished. HEENT: Pupils are round and equally reacting to light. EOMI. No scleral icterus. No conjunctival pallor. Normocephalic, atraumatic. No pharyngeal erythema. No thyromegaly. CARDIOVASCULAR: S1 and S2 present. No murmurs, rubs, or gallops. PULMONARY: Chest is clear to auscultation, no wheezing or crackles. -ABDOMEN: Soft, mild epigastric tenderness, no rebound tenderness. nondistended , normoactive bowel sounds. No palpable organomegaly. MUSCULOSKELETAL: No joint swelling or deformity. -Patient has point tenderness in the lower back to the left side, about 1-2 inches in size. (Area is demarcated). EXTREMITIES: No cyanosis, clubbing, or pedal edema. NEUROLOGICAL: Gross neurological examination did not reveal any focal deficits. SKIN: No rashes. - Labs CBC & Chem 7: 02/14/18 07:30 02/12/18 10:26 Labs: Abnormal Lab Results - Last 24 Hours (Table) 02/14/18 Range/Units 07:30 Plt Count 149 L (150-450) k/uL Assessment and Plan Plan: -Lower back pain, acute on chronic. Not controlled pain is the main problem of the patient, no weakness in the lower extremity. Computed tomography scan showing compression fraction of T11-T12 and L1 to L3. Put him on vitamin D and calcium. orthopedic consult is not available this week, and the recommend outpatient follow-up. Pain management (topical, oral and intravenous. See orders) -Epigastric abdominal pain and tenderness. Associated with retching or vomiting white mucus. And constipation for 2 days (given medication). Computed tomography scan of the abdomen was unremarkable. order abdominal x-ray. surgical and GI consult is appreciated , no surgical intervention/procedure is needed. family want his epigastric pain to be evaluated. cardio team input is appreciated , negative EKG and se, since he is known to their service and he saw Dr. latham 05/2017 -History of chronic atrial fibrillation, on eliquis. Heart rate controlled on medication. Continue same treatment. He follow-up with Dr. Granados as an outpatient -COPD, not in acute exacerbation EGD/Colonscopy on 02/14/2018 DVT prophylaxis patient is an ELIQUIS GI prophylaxis on Protonix PT/OT: Pending Prognosis is guarded
[2018-02-14 22:52] LABS: Basophils % (A) 0 %; Eosinophils # (A) 0.2 k/uL (0-0.7); Eosinophils % (A) 5 %; HCT 42.3 % (39.0-53.0); HGB 13.8 gm/dL (13.0-17.5); Lymphocytes # (A) 0.9 k/uL (1.0-4.8); Lymphocytes % (A) 20 %; MCH 28.1 pg (25.0-35.0); MCHC 32.6 g/dL (31.0-37.0); Mean Platelet Volume 7.3; Monocytes # (A) 0.5 k/uL (0-1.0); Monocytes % (A) 10 %; Neutrophils # (A) 2.8 k/uL (1.3-7.7); Neutrophils % (A) 61 %; Platelet Count 130 k/uL (150-450); RBC 4.92 m/uL (4.30-5.90); RDW 13.4 % (11.5-15.5); WBC 4.6 k/uL (3.8-10.6)
[2018-02-14 22:57] LABS: Anion Gap 8 mmol/L; Blood Urea Nitrogen 13 mg/dL (9-20); Calcium 9.7 mg/dL (8.4-10.2); Carbon Dioxide 30 mmol/L (22-30); Chloride 98 mmol/L (98-107); Glucose 102 mg/dL (74-99); Sodium 136 mmol/L (137-145)
[2018-02-15] MEDS: ONDANSETRON 4 MG/2 ML VIAL IVP SCH ×3 (05:46→20:46)
[2018-02-15] MEDS: SENNOSIDES-DOCUSATE SODIUM 1 EACH TAB PO SCH ×2 (07:04→20:46)
[2018-02-15] MEDS: PANTOPRAZOLE 40 MG TABLET PO SCH (07:04)
[2018-02-15] MEDS: SUCRALFATE 1 GM TAB PO SCH ×2 (07:04→17:16)
[2018-02-15] MEDS: CALCIUM CARB-VIT D 500MG-200UN 1 EACH TAB PO SCH ×2 (07:04→17:16)
[2018-02-15] MEDS: DOCUSATE 100 MG CAP PO SCH (07:04)
[2018-02-15] MEDS: LIDOCAINE 5% PATCH TOPICAL SCH (07:05)
[2018-02-15] MEDS: traMADol 50 MG TAB PO PRN ×2 (07:10→19:48)
[2018-02-15] MEDS: SYMBICORT 80-4.5 MCG INHALER INHALATION SCH ×2 (07:32→20:23)
[2018-02-15] MEDS ORDERED: PROPOFOL 10 MG/ML 20 ML VIAL IV ONE (08:45)
[2018-02-15] MEDS ORDERED: LIDOCAINE 1% INJ 10MG/ML (20 ML MDV) ONE (08:45)
[2018-02-15] MEDS ORDERED: LACTATED RINGERS 1,000 ML IV ONE (08:56)
--- NOTE | 2018-02-15 09:18 | P.PCN ---
Date of Procedure: 02/15/18 Procedure(s) Performed: Brief history: Patient is a pleasant 87-year-old white male, admitted to the hospital with chronic abdominal pain of 3 years duration but it got progressively get worse for the last few days. Dyspeptic pain mostly in the right upper quadrant area radiating to the right lower quadrant area area and CT of abdomen and pelvis was unremarkable. He is hence scheduled for an scheduled for an elective upper endoscopy as well as colonoscopy as a part of evaluation of chronic abdominal pain. Patient has prior history of gastric surgery for peptic ulcer disease many years ago. Procedure performed: Esophagogastroduodenoscopy with biopsy Colonoscopy with biopsy and snare polypectomy Preoperative diagnosis: Chronic abdominal pain Anesthesia: MAC Procedure: After informed consent was obtained from the patient was brought into the endoscopy unit and IV sedation was administered by anesthesia under continuous monitoring. Initially upper endoscopy was done. The Olympus GF 160 video endoscope was inserted inserted into the mouth and esophagus intubated without any difficulty and was gradually advanced into the stomach and duodenum and carefully examined. 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 The duodenum appeared normal. The bulb and second part of the duodenum appeared normal. The scope was then withdrawn into the stomach adequately insufflated with air and upon careful examination the antrum had mild diffuse gastritis and biopsies were done from this area. The body, cardia and fundus appeared normal. The scope was then withdrawn into the esophagus. The GE junction was located at 40 cm to the incisors. It appeared regular with no erythema erosions or ulcerations. Rest of the esophagus appeared normal. Patient tolerated the procedure well. At this time the patient continued to remain sedation. Initial digital rectal examination was normal. Olympus CF 160 video colonoscope was then inserted into the rectum and gradually advanced to the cecum without any difficulty. Careful examination was performed as the scope was gradually being withdrawn. The prep was excellent. The cecum, ascending colon, appeared normal. In the transverse colon there was a 2-3 mm diminutive polyp that was removed by biopsy. Rest of the transverse colon, descending colon, sigmoid colon and rectum appeared normal. in the distal sigmoid colon there were 2 polyps measuring 7 mm in size both of which were removed by snare polypectomy. Retroflexion was performed in the rectum and no lesions were noted. Patient tolerated the procedure well. Impression: 1. 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 Colonoscopy revealed 23 mm transverse colon polyp status post removal by biopsy, 7 mm 2 sigmoid colon polyps status post polypectomy Recommendations: Findings of this examination were discussed with the patient as well as her family. She was advised to follow with the biopsy results. He will be started on a regular diet.
[2018-02-15] MEDS: HYDROcodone/APAP 5-325MG 1 EACH TAB PO PRN ×2 (09:41→22:29)
[2018-02-15] MEDS: APIXABAN 5 MG TAB PO SCH (20:45)
--- NOTE | 2018-02-16 02:50 | P.PN ---
Subjective This is a pleasant 57 years old male with past medical history of chronic atrial fibrillation, COPD, status post pacemaker, basal cell carcinoma of the skin status post resection, peptic ulcer disease, history of coronary artery disease status post cardiac cath. Presents because of abdominal pain Patient states he has 2 pain and swelling in his lower back and one in his abdomin, in August 2017 he slipped on ice and twisted his back, followed by lower back pain which got worse after he was trying to lift a ladder and since then he has been fluctuating in pain. Patient was taking narcotics however he stopped his hydrocodone about 6 weeks ago. Patient also complains from 2 months history of nonspecific abdominal pain mainly on the left side radiating to the right side to person upper abdomen, slight sharp knife in character. Relieved by moving his bowel, over the last 3 days became more severe. Associated with vomiting white mucus stuff several times yesterday. Patient didn't have a bowel movement over the last 2 days. Patient denies weakness in his lower extremity and hip was noticed he is walking the hallway using his walker. He complains from some numbness, mild behind his left leg and thigh. In the ED his blood pressure was on the low side, CBC was unremarkable except for low platelets at 126, which is chronic. BMP was unremarkable except for high glucose mildly at 118. UA was negative for infection. CT of the abdomen and pelvis shows compression fraction of of 3 to L1 and T12 to T11 with osteopenia. Gallbladder absence with markedly dilated bile duct 02/10/2018 Patient abdominal pain is minimal. Patient having bowel movement which is kind of fluids after he got several bowel regiment. And he is taken prone juice. Surgical evaluation is appreciated call on no need for surgical intervention. Patient is still complaining of from significant pain and he's pointing to the side of the lower back, at this point tenderness and a small area about 1-2 inches, which was marked. This pain is radiating to the front across the side, rather than abdominal pain. Patient states that this is the pain is really bothering him since August and that he went to couple doctors but they couldn' t help him which their therapies. Patient denies urine or bowel incontinence. He denies nausea vomiting but he has some retching. Patient denies weakness in his legs. Patient is noticed walking the hallway using his walker. Unfortunately the orthopedic for back pain Dr. Pasia is not available this hospital for this week. And the recommended outpatient follow-up in 1 week. PT /OT is ongoing 02/11/2018 Patient still have mild epigastric pain and tenderness, 2/10 in severity. His dry heaves/retching have stopped since yesterday. He is having some bowel movements with bowel regimens. He had a small 1 which was semi-solid. But he didn't have bowel movements this morning. I had long discussions with the patient's and son at bedside according to the patient's request. And they like to call for GI team to evaluate the patient's before discharge. His back pain is improving, going across the abdomen to the right side ( mild), it was 10/10 in severity on admission. and now 6/10 in severity with pain management. he had a brace prescribed to him but he was not wearing it. it was brought by hospital staff for the pt and he is wearing it today Was taking IV morphine and Ultram. We'll DC the IV morphine and continue Ultram by mouth every 4 hours. Patient instructed to ask for pain pills when he needs it and he verbalized understanding and acceptance. pt was instructed how to use it. Family was not at bedside this morning 02/12/2018 pt back pain is more controlled today and is minimal giovanni if pt lies on his left side, he is more complaining from abd pain 4/10 in severity as per pt , GI , surgery consultation is appreciated , most likely pt is suffering from constipation , pt she still thinks he needs to be evaluated for ulcer disease , however she agrees to try bowel regimen like dulcolax and later mg citrate hoping this will help his bowel movement , pt last BM was 2 days ago 02/13/2018 pt is still having abd pain after bowel movement , GI team are following the pt 02/14/2018 pt still has significant abdominal pain , his ultram became ineffective and meds were switched to noroc 5-325 mg. pt is going for EGD/Colonoscopy tomorrow 02/15/2018 pt is s/p EGD:gastritis; Colonoscopy: s/p polypectomy , discussed with pt and at bed site the importance of f/u for biopsy result and risks including but not limited to cancer and they verbalized enderstanding and acceptance we will call ortho consult tomorrow and they are back this coming week to service . Objective - Vital Signs Vital signs: Vital Signs Temp 97.2 F L 02/15/18 06:29 Pulse 87 02/15/18 06:29 Resp 20 02/15/18 06:29 BP 120/50 02/15/18 06:29 Pulse Ox 94 L 02/15/18 06:29 Intake & Output 02/14/18 02/15/18 02/15/18 18:59 06:59 18:59 Intake Total 1200 300 Output Total 300 Balance 900 300 Weight 66 kg Intake: IV 300 Oral 1200 Output: Urine 300 Other: Voiding Method Toilet Bedside Commode Bedside Commode Urinal Urinal Urinal # Voids 2 2 2 # Bowel Movements 3 2 - Exam GENERAL: The patient is alert and oriented x3, not in any acute distress. Well developed, well nourished. HEENT: Pupils are round and equally reacting to light. EOMI. No scleral icterus. No conjunctival pallor. Normocephalic, atraumatic. No pharyngeal erythema. No thyromegaly. CARDIOVASCULAR: S1 and S2 present. No murmurs, rubs, or gallops. PULMONARY: Chest is clear to auscultation, no wheezing or crackles. -ABDOMEN: Soft, mild epigastric tenderness, no rebound tenderness. nondistended , normoactive bowel sounds. No palpable organomegaly. MUSCULOSKELETAL: No joint swelling or deformity. -Patient has point tenderness in the lower back to the left side, about 1-2 inches in size. (Area is demarcated). EXTREMITIES: No cyanosis, clubbing, or pedal edema. NEUROLOGICAL: Gross neurological examination did not reveal any focal deficits. SKIN: No rashes. - Labs CBC & Chem 7: 02/14/18 22:25 02/14/18 22:25 Labs: Abnormal Lab Results - Last 24 Hours (Table) 02/14/18 02/14/18 Range/Units 22:25 22:25 Plt Count 130 L (150-450) k/uL Lymphocytes # 0.9 L (1.0-4.8) k/uL Sodium 136 L (137-145) mmol/L Glucose 102 H (74-99) mg/dL Assessment and Plan Plan: -Lower back pain, acute on chronic. Not controlled pain is the main problem of the patient, no weakness in the lower extremity. Computed tomography scan showing compression fraction of T11-T12 and L1 to L3. Put him on vitamin D and calcium. orthopedic consult is back to service this week, nurse communication is placed to consult them in the morning of 02/16/2018 . Pain management (topical , oral and intravenous. See orders) -Epigastric abdominal pain and tenderness. Associated with retching or vomiting white mucus. And constipation for 2 days (given medication). Computed tomography scan of the abdomen was unremarkable. order abdominal x-ray. surgical and GI consult is appreciated. EGD:gastritis. Clonoscopy: s/p polypectomy , cardio team input is appreciated , negative EKG and se, since he is known to their service and he saw Dr. latham 05/2017 -History of chronic atrial fibrillation, on eliquis. Heart rate controlled on medication. Continue same treatment. He follow-up with Dr. Granados as an outpatient -COPD, not in acute exacerbation EGD/Colonscopy on 02/15/2018 DVT prophylaxis patient is an ELIQUIS GI prophylaxis on Protonix PT/OT: Home Health care Prognosis is guarded
[2018-02-16] MEDS: ONDANSETRON 4 MG/2 ML VIAL IVP SCH ×3 (06:32→20:15)
[2018-02-16] MEDS: CALCIUM CARB-VIT D 500MG-200UN 1 EACH TAB PO SCH ×2 (08:05→15:49)
[2018-02-16] MEDS: PANTOPRAZOLE 40 MG TABLET PO SCH (08:05)
[2018-02-16] MEDS: SUCRALFATE 1 GM TAB PO SCH ×2 (08:05→15:49)
[2018-02-16] MEDS: APIXABAN 5 MG TAB PO SCH ×2 (08:06→20:14)
[2018-02-16] MEDS: LIDOCAINE 5% PATCH TOPICAL SCH (08:06)
[2018-02-16] MEDS: DOCUSATE 100 MG CAP PO SCH (08:06)
[2018-02-16] MEDS: SENNOSIDES-DOCUSATE SODIUM 1 EACH TAB PO SCH ×2 (08:07→20:14)
[2018-02-16] MEDS: HYDROcodone/APAP 5-325MG 1 EACH TAB PO PRN ×2 (08:08→18:38)
[2018-02-16] MEDS: SYMBICORT 80-4.5 MCG INHALER INHALATION SCH ×2 (08:21→19:49)
--- NOTE | 2018-02-16 14:32 | P.PN ---
Subjective Patient is admitted for severe back pain had a recent compression fracture has a TLC will brace. Patient pain is still not well controlled. Pretty much limited in canals medications which can use. Patient was evaluated by pain management services will discuss with him regarding TENS machine, back surgeon was consulted as well. Patient is still complaining of severe pain and CT of the abdomen did not show any nephrolithiasis or any other intra-abdominal abnormality patient has severe gastritis from the upper GI endoscopy that was done during this hospitalization. Patient is presently receiving low-dose of [place] as he gets confused with higher doses and also I am and Tylenol as needed. We cannot use nonsteroidal anti-inflammatories secondary to gastritis. Constitutional: Denied any fatigue denied any fever. Cardio vascular: denied any chest pain, palpitations Gastrointestinal denied any nausea vomiting Pulmonary: Denied any shortness of breath cough Neurologic denied any new focal deficits Objective - Vital Signs Vital signs: Vital Signs Temp 97.0 F L 02/16/18 06:31 Pulse 72 02/16/18 06:31 Resp 18 02/16/18 06:31 BP 114/65 02/16/18 06:31 Pulse Ox 95 02/16/18 08:21 Intake & Output 02/15/18 02/16/18 02/16/18 18:59 06:59 18:59 Intake Total 540 550 Balance 540 550 Weight 65 kg Intake: IV 300 Oral 240 550 Other: Voiding Method Bedside Commode Urinal Urinal # Voids 2 1 4 # Bowel Movements 2 - Exam PHYSICAL EXAMINATION: GENERAL: The patient is alert and oriented x3, not in any acute distress. Well developed, well nourished. HEENT: Pupils are round and equally reacting to light. EOMI. No scleral icterus. No conjunctival pallor. Normocephalic, atraumatic. No pharyngeal erythema. No thyromegaly. CARDIOVASCULAR: S1 and S2 present. No murmurs, rubs, or gallops. PULMONARY: Chest is clear to auscultation, no wheezing or crackles. ABDOMEN: Soft, nontender, nondistended, normoactive bowel sounds. No palpable organomegaly. MUSCULOSKELETAL: No joint swelling or deformity. She does have tenderness the left paraspinal area left flank area. EXTREMITIES: No cyanosis, clubbing, or pedal edema. NEUROLOGICAL: Gross neurological examination did not reveal any focal deficits. SKIN: No rashes. - Labs CBC & Chem 7: 02/14/18 22:25 02/14/18 22:25 Assessment and Plan Plan: -Chronic low back pain with recent compression fractures DLCO brace and pain management as mentioned above, consultation to pain management and orthopedic surgery -Severe gastritis patient is on Protonix -Chronic atrial fibrillation on anticoagulation and rate control medications presently rate controlled -COPD without any acute exacerbation
[2018-02-16] MEDS: traMADol 50 MG TAB PO PRN (21:29)
[2018-02-17] MEDS: HYDROcodone/APAP 5-325MG 1 EACH TAB PO PRN ×2 (02:56→11:48)
[2018-02-17] MEDS: ONDANSETRON 4 MG/2 ML VIAL IVP SCH (06:12)
[2018-02-17 07:10] VITALS: BP 108/58; PULSE 89; RESP 18; TEMP 98.2
[2018-02-17] MEDS: DOCUSATE 100 MG CAP PO SCH (07:23)
[2018-02-17] MEDS: SENNOSIDES-DOCUSATE SODIUM 1 EACH TAB PO SCH (07:23)
[2018-02-17] MEDS: CALCIUM CARB-VIT D 500MG-200UN 1 EACH TAB PO SCH (07:23)
[2018-02-17] MEDS: PANTOPRAZOLE 40 MG TABLET PO SCH (07:23)
[2018-02-17] MEDS: SUCRALFATE 1 GM TAB PO SCH (07:23)
[2018-02-17] MEDS: LIDOCAINE 5% PATCH TOPICAL SCH (07:23)
[2018-02-17] MEDS: APIXABAN 5 MG TAB PO SCH (07:23)
[2018-02-17] MEDS: SYMBICORT 80-4.5 MCG INHALER INHALATION SCH (07:46)
[2018-02-17 08:35] LABS: HCT 38.7 % (39.0-53.0); MCH 29.8 pg (25.0-35.0); MCHC 33.7 g/dL (31.0-37.0); MCV 88.4 fL (80.0-100.0); Mean Platelet Volume 7.2; Platelet Count 157 k/uL (150-450); RBC 4.38 m/uL (4.30-5.90); RDW 13.9 % (11.5-15.5); WBC 4.5 k/uL (3.8-10.6)
--- NOTE | 2018-02-17 08:44 | P.CNOR ---
History of Present Illness - [facility] Consult date: 02/17/18 Requesting physician: Rod E Sheet Consult reason: fracture (Multiple compression fracture for his at T11, T12, L2 , L3), low back pain, back pain (Thoracic back pain) History of present illness: Patient is a very pleasant 87-year-old male who is seen and examined at bedside for further evaluation for thoracolumbar pain. Patient initially presented to the emergency department on 02/08/2018 for abdominal pain. He has had significant further workup with GI without significant acute findings. Medicine states patient does have gastritis and his medications for pain are limited due to his gastritis. Patient has been discussed in detail with his . Patient sustained a fall in August 2017 in the snow causing pain in his thoracic and lumbar spines. He then tried to lift the latter which further exacerbated his symptoms. During his presentation to the emergency department, a CT abdomen and pelvis was performed which showed evidence of multiple compression fracture deformities at T11, T12, L1 2, and L3. He was also found to have any previous kyphoplasty at L1. Patient's states they were on vacation in [place] in August 2016 which time he sustained an injury with a fracture at L1. He underwent a kyphoplasty at L1 while in [place] and had significant improvement of the symptoms. Since his admittance to the hospital he has been prescribed and fitted with a Spinomed TLSO brace. He has been wearing his brace appropriately. He states over the past 2 days he does have some pain over the right posterior lateral thigh and right calf. He is currently waiting for consultation with pain management today to see if they better able to control his pain prior to discharge due to his difficulty with medications. He is currently using a pain patch over his thoracolumbar spine. He states that he would like to discuss a TENS unit with pain management. He denies specific lower extremity weakness bilaterally. 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 History of Any Multi-Drug Resistant Organisms: None Reported Past Surgical History: Appendectomy, Cholecystectomy, Heart Catheterization, Pacemaker Additional Past Surgical History / Comment(s): MICHEAL CATARACTS, ULCER SX.HEMORROID SX, HAD DUAL PACEMAKER IMPLANTED (SICK SINUS SYNDROME,AV NODE DISEAE,TACHYBRADY SYNDROME.. Stomach surgery r/t ulcer Past Anesthesia/Blood Transfusion Reactions: No Reported Reaction Type of Cardiac Device: Permanent Pacemaker Device Placement Date:: 2013 Smoking Status: Former smoker - Past Family History Father Family Medical History: CVA/TIA Additional Family Medical History / Comment(s): NOT SURE IF HE HAD MINI STROKES OR HEART PROBLEM. DAD AT AGE 82 Mother Family Medical History: Diabetes Mellitus Additional Family Medical History / Comment(s): AT AGE 76 Medications and Allergies Home Medications Medication Instructions Recorded Confirmed Type Fluticasone/Salmeterol [Advair 1 puff INHALATION RT-BID 02/28/14 02/09/18 History 250-50 Diskus] Apixaban [Eliquis] 5 mg PO BID 05/20/17 02/09/18 History Acetaminophen Tab [Tylenol Tab] 1,000 mg PO Q6HR PRN 02/09/18 02/09/18 History Docusate [Colace] 100 mg PO DAILY 02/09/18 02/09/18 History Linaclotide [Linzess] 290 mcg PO DAILY 02/09/18 02/09/18 History Polyethylene Glycol 3350 [Miralax] 17 gm PO DAILY PRN 02/09/18 02/09/18 History Allergies Allergy/AdvReac Type Severity Reaction Status Date / Time codeine Allergy Intermediate Hallucinati Verified 02/08/18 22:24 ons prednisone AdvReac agitated Verified 02/08/18 22:24 Physical Examination Physical exam: Patient is awake, alert, and oriented 3 Vital signs stable Good chest excursion with deep inspiration and expiration Abdomen soft nontender Examination of lumbar spine reveals skin is intact with no abrasions, lacerations, or bruises; no erythema, purulence or signs of infection Pain with palpation over the midline of the thoracolumbar spine at the lower thoracic spine and upper lumbar spine Evidence of pain patch over the thoracolumbar spine Dorsiflexion, plantarflexion, and extensor hallucis longus positive sustained bilaterally Lower extremity strength 5/5 bilaterally Patellar reflex 2+ bilaterally and Achilles reflexes 0+ bilaterally No lower extremity hyperreflexia bilaterally Straight leg test negative bilateral lower extremities No signs or symptoms of DVT; no calf pain No pain with internal and external rotation of the hips bilaterally Neurovascularly intact Results Pertinent studies: CT abdomen and pelvis taken on 02/08/2018: Multiple compression fracture deformities with fracture at T11 with approximately 25% height loss and sclerosis of the superior endplate, T12 with approximately 10% % height loss and sclerosis of the superior endplate; L2 compression fracture deformity with approximately 50% height loss centrally, L3 compression fracture deformity with approximately 10% height loss, and previous L1 compression fracture deformity with evidence of kyphoplasty; no evidence of spondylolisthesis or instability; intravertebral disc spacing appears to be adequately maintained; osteopenia - Labs Labs: Abnormal Lab Results - Last 24 Hours (Table) 02/17/18 Range/Units 08:12 Hct 38.7 L (39.0-53.0) % H & H 02/08/18 02/14/18 02/14/18 Range/Units 17:59 07:30 22:25 Hgb 14.5 13.8 13.8 (13.0-17.5) gm/dL Hct 43.0 41.5 42.3 (39.0-53.0) % 02/17/18 Range/Units 08:12 Hgb 13.0 (13.0-17.5) gm/dL Hct 38.7 L (39.0-53.0) % Coagulation 02/14/18 Range/Units 07:30 INR 1.1 (<1.2) Result Diagrams: 02/17/18 08:12 02/14/18 22:25 Assessment and Plan Assessment: Assessment: Thoracolumbar pain Status post fall in August 2017 Right lower extremity radiculopathy Multiple compression fracture deformities of indeterminate age at T11 with 25% height loss and some sclerosis of the endplate, T12 with 10% height loss and some sclerosis of the endplate, L2 with approximately 50% height loss centrally , and L3 with approximately 10% height loss History of L1 kyphoplasty Right lower extremity radiculopathy Osteopenia Abdominal pain and gastritis (1) Closed T11 fracture Current Visit: Yes Status: Acute Code(s): S22.089A - UNSP FRACTURE OF T11- T12 VERTEBRA, INIT FOR CLOS FX SNOMED Code(s): 063010764 (2) T12 compression fracture Current Visit: Yes Status: Acute Code(s): S22.080A - WEDGE COMPRESSION FRACTURE OF T11-T12 VERTEBRA, INIT SNOMED Code(s): 065206155 (3) Compression fracture of L2 lumbar vertebra Current Visit: Yes Status: Acute Code(s): S32.020A - WEDGE COMPRESSION FRACTURE OF SECOND LUMBAR VERTEBRA, INIT SNOMED Code(s): 07289931882454878 (4) Compression fracture of L3 lumbar vertebra Current Visit: Yes Status: Acute Code(s): S32.030A - WEDGE COMPRESSION FRACTURE OF THIRD LUMBAR VERTEBRA, INIT SNOMED Code(s): 453768499 (5) Thoracolumbar back pain Current Visit: Yes Status: Acute Code(s): M54.5 - LOW BACK PAIN; M54.6 - PAIN IN THORACIC SPINE SNOMED Code(s): 138984903 (6) History of kyphoplasty Current Visit: Yes Status: Acute Code(s): Z98.890 - OTHER SPECIFIED POSTPROCEDURAL STATES SNOMED Code(s): 110344989 (7) Gastritis Current Visit: Yes Status: Acute Code(s): K29.70 - GASTRITIS, UNSPECIFIED, WITHOUT BLEEDING SNOMED Code(s): 7709039 (8) Osteopenia Current Visit: Yes Status: Acute Code(s): M85.80 - OTH DISRD OF BONE DENSITY AND STRUCTURE, UNSPECIFIED SITE SNOMED Code(s): 360314492 (9) Abdominal pain Current Visit: Yes Status: Acute Code(s): R10.9 - UNSPECIFIED ABDOMINAL PAIN SNOMED Code(s): 27852389 (10) Lumbar back pain with radiculopathy affecting right lower extremity Current Visit: Yes Status: Acute Code(s): M54.16 - RADICULOPATHY, LUMBAR REGION SNOMED Code(s): 283177055 Plan: Plan: 1. After physical examination of the patient, further discussion with the patient, and further discussion with the patient's family, we will continue conservative treatment at this time. Imaging does show evidence of multiple compression fracture deformities of indeterminate age. He does have corresponding pain in his thoracic and lumbar spines. The week he has been prescribed him fitted with a Spinomed TLSO brace. We discussed he should continue to wear this brace while sitting upright at greater than 45, during ambulation, during increase activities, and while working with physical therapy. Brace is not have to or while lying in bed or while bathing. We will plan have him follow-up in the outpatient setting in approximately 2-3 weeks for further evaluation. If his symptoms are not improving at that time, the plan to obtain further imaging and to discuss the possibility of further kyphoplasty following that imaging. Patient's states he has a pacemaker is unable to undergo an MRI. We may possibly plan for a lumbar spine CT or CT myelogram of the lumbar spine for further evaluation. Patient is cleared for discharge from an orthopedic spine standpoint. 2. Currently waiting for consultation with pain management 3. Patient continues to be followed by medicine 4. Following discharge, patient may follow-up with Shlomo Arango PA-C or Dr. Kike Beasley at [facility] approximately 2-3 weeks for further evaluation 5. Patient be discussed in detail with Dr. Kike Beasley Time with Patient: Less than 30
[2018-02-17 08:53] LABS: Calcium 9.3 mg/dL (8.4-10.2); Potassium 4.1 mmol/L (3.5-5.1)
--- NOTE | 2018-02-17 11:39 | P.PN ---
Progress Note - Text Progress Note Date: 02/17/18 Orthopedics - Consult Note Patient Name: Michael Crane Date of : 1930 Patient Status: Inpatient Attending Provider: Bebeto Stevens Date: 02/17/18 08:37 Initialization Date: 02/17/18 08:37 History of Present Illness - HPI Consult date: 02/17/18 Requesting physician: Rod E Kerrie Consult reason: fracture (Multiple compression fracture for his at T11, T12, L2 , L3), low back pain, back pain (Thoracic back pain) History of present illness: This is a 7 showed gentleman with a history of compression fractures who presents to the hospital for evaluation. He has been seen by the hospital team as well as orthopedic surgery team. We were consulted today to provide pain medication recommendations. The patient has previous he tried Onley which he found incredibly constipating. He has also trialed tramadol when he had a compression fracture in [place]. This was very well tolerated. He is currently taking Tylenol which seems to work okay during the day however at night the pain is horrific. He denies bowel or bladder dysfunction. He reports the pain tends to migrate throughout his back and into his right leg. 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 History of Any Multi-Drug Resistant Organisms: None Reported Past Surgical History: Appendectomy, Cholecystectomy, Heart Catheterization, Pacemaker Additional Past Surgical History / Comment(s): MICHEAL CATARACTS, ULCER SX.HEMORROID SX, HAD DUAL PACEMAKER IMPLANTED (SICK SINUS SYNDROME,AV NODE DISEAE,TACHYBRADY SYNDROME.. Stomach surgery r/t ulcer Past Anesthesia/Blood Transfusion Reactions: No Reported Reaction Type of Cardiac Device: Permanent Pacemaker Device Placement Date:: 2013 Smoking Status: Former smoker - Past Family History Father Family Medical History: CVA/TIA Additional Family Medical History / Comment(s): NOT SURE IF HE HAD MINI STROKES OR HEART PROBLEM. DAD AT AGE 82 Mother Family Medical History: Diabetes Mellitus Additional Family Medical History / Comment(s): AT AGE 76 Medications and Allergies Home Medications Medication Instructions Recorded Confirmed Type Fluticasone/Salmeterol [Advair 1 puff INHALATION RT-BID 02/28/14 02/09/18 History 250-50 Diskus] Apixaban [Eliquis] 5 mg PO BID 05/20/17 02/09/18 History Acetaminophen Tab [Tylenol Tab] 1,000 mg PO Q6HR PRN 02/09/18 02/09/18 History Docusate [Colace] 100 mg PO DAILY 02/09/18 02/09/18 History Linaclotide [Linzess] 290 mcg PO DAILY 02/09/18 02/09/18 History Polyethylene Glycol 3350 [Miralax] 17 gm PO DAILY PRN 02/09/18 02/09/18 History Allergies Allergy/AdvReac Type Severity Reaction Status Date / Time codeine Allergy Intermediate Hallucinati Verified 02/08/18 22:24 ons prednisone AdvReac agitated Verified 02/08/18 22:24 Physical Examination Physical exam: Patient is awake, alert, and oriented 3. He is not sedated. He answers all questions appropriately. Vital signs stable Good chest excursion with deep inspiration and expiration Abdomen soft nontender Examination of lumbar spine reveals skin is intact with no abrasions, lacerations, or bruises; no erythema, purulence or signs of infection Pain with palpation over the midline of the thoracolumbar spine at the lower thoracic spine and upper lumbar spine Evidence of pain patch over the thoracolumbar spine Dorsiflexion, plantarflexion, and extensor hallucis longus positive sustained bilaterally Lower extremity strength 5/5 bilaterally Patellar reflex 2+ bilaterally and Achilles reflexes 0+ bilaterally No lower extremity hyperreflexia bilaterally Straight leg test negative bilateral lower extremities No signs or symptoms of DVT; no calf pain No pain with internal and external rotation of the hips bilaterally Neurovascularly intact Results Pertinent studies: CT abdomen and pelvis taken on 02/08/2018: Multiple compression fracture deformities with fracture at T11 with approximately 25% height loss and sclerosis of the superior endplate, T12 with approximately 10% % height loss and sclerosis of the superior endplate; L2 compression fracture deformity with approximately 50% height loss centrally, L3 compression fracture deformity with approximately 10% height loss, and previous L1 compression fracture deformity with evidence of kyphoplasty; no evidence of spondylolisthesis or instability; intravertebral disc spacing appears to be adequately maintained; osteopenia - Labs Labs: Abnormal Lab Results - Last 24 Hours (Table) 02/17/18 Range/Units 08:12 Hct 38.7 L (39.0-53.0) % H & H 02/08/18 02/14/18 02/14/18 Range/Units 17:59 07:30 22:25 Hgb 14.5 13.8 13.8 (13.0-17.5) gm/dL Hct 43.0 41.5 42.3 (39.0-53.0) % 02/17/18 Range/Units 08:12 Hgb 13.0 (13.0-17.5) gm/dL Hct 38.7 L (39.0-53.0) % Coagulation 02/14/18 Range/Units 07:30 INR 1.1 (<1.2) Result Diagrams: 02/17/18 08:12 02/14/18 22:25 Assessment and Plan Assessment: Assessment: Thoracolumbar pain Status post fall in August 2017 Right lower extremity radiculopathy Multiple compression fracture deformities of indeterminate age at T11 with 25% height loss and some sclerosis of the endplate, T12 with 10% height loss and some sclerosis of the endplate, L2 with approximately 50% height loss centrally , and L3 with approximately 10% height loss History of L1 kyphoplasty Right lower extremity radiculopathy Osteopenia Abdominal pain and gastritis (1) Closed T11 fracture Current Visit: Yes Status: Acute Code(s): S22.089A - UNSP FRACTURE OF T11- T12 VERTEBRA, INIT FOR CLOS FX SNOMED Code(s): 462874183 (2) T12 compression fracture Current Visit: Yes Status: Acute Code(s): S22.080A - WEDGE COMPRESSION FRACTURE OF T11-T12 VERTEBRA, INIT SNOMED Code(s): 049161797 (3) Compression fracture of L2 lumbar vertebra Current Visit: Yes Status: Acute Code(s): S32.020A - WEDGE COMPRESSION FRACTURE OF SECOND LUMBAR VERTEBRA, INIT SNOMED Code(s): 50728778205495762 (4) Compression fracture of L3 lumbar vertebra Current Visit: Yes Status: Acute Code(s): S32.030A - WEDGE COMPRESSION FRACTURE OF THIRD LUMBAR VERTEBRA, INIT SNOMED Code(s): 479349061 (5) Thoracolumbar back pain Current Visit: Yes Status: Acute Code(s): M54.5 - LOW BACK PAIN; M54.6 - PAIN IN THORACIC SPINE SNOMED Code(s): 422278065 (6) History of kyphoplasty Current Visit: Yes Status: Acute Code(s): Z98.890 - OTHER SPECIFIED POSTPROCEDURAL STATES SNOMED Code(s): 300291136 (7) Gastritis Current Visit: Yes Status: Acute Code(s): K29.70 - GASTRITIS, UNSPECIFIED, WITHOUT BLEEDING SNOMED Code(s): 8159070 (8) Osteopenia Current Visit: Yes Status: Acute Code(s): M85.80 - OTH DISRD OF BONE DENSITY AND STRUCTURE, UNSPECIFIED SITE SNOMED Code(s): 144572667 (9) Abdominal pain Current Visit: Yes Status: Acute Code(s): R10.9 - UNSPECIFIED ABDOMINAL PAIN SNOMED Code(s): 72551404 (10) Lumbar back pain with radiculopathy affecting right lower extremity Current Visit: Yes Status: Acute Code(s): M54.16 - RADICULOPATHY, LUMBAR REGION SNOMED Code(s): 955557599 Plan: 1. Your medical management 2. Agree with all orthopedic spine recommendations 3. Utilize Tylenol 500 mg alternating with tramadol 50 mg every 4 hours as needed. 4. Utilize salompas patches to painful spinal areas. 5. Patient will follow up as an outpatient with the orthopedic department. 6. Continue with bracing during waking hours.
[2018-02-17] MEDS ORDERED: traMADol 50 MG TAB PO PRN (11:40)
[2018-02-17] MEDS ORDERED: ACETAMINOPHEN TAB 500 MG TAB PO PRN (11:41)
--- NOTE | 2018-02-17 12:48 | P.DS ---
Providers Date of admission: 02/09/18 18:45 Attending physician: Bebeto Stevens Consults: 02/09/18 15:10 Consult Physician Routine Consulting Provider: Brandon Beasley Consult Reason/Comments: abdominal pain Do you want consulting provider notified?: Yes Consult Physician Routine Consulting Provider: Jd Beasley Consult Reason/Comments: back pain Do you want consulting provider notified?: Yes 02/10/18 12:41 Consult Physician Routine Consulting Provider: Wilber Garcia Consult Reason/Comments: physical therapy and pain management Do you want consulting provider notified?: Yes 02/11/18 11:45 Consult Physician Routine Consulting Provider: Yasmeen Awan Consult Reason/Comments: Epigastric pain Do you want consulting provider notified?: Yes 02/16/18 02:42 Consult Physician Routine Consulting Provider: Jd Besaley Consult Reason/Comments: vertebral fractuer and back pain Do you want consulting provider notified?: Yes 02/16/18 14:31 Consult Physician Routine Consulting Provider: Mike Rahman Consult Reason/Comments: pain managment Do you want consulting provider notified?: Yes Primary care physician: Francie [facility] Course: Patient is admitted for severe back pain had a recent compression fracture has a TLC will brace. Patient pain is still not well controlled. Pretty much limited in canals medications which can use. Patient was evaluated by pain management services will discuss with him regarding TENS machine, back surgeon was consulted as well. Patient is still complaining of severe pain and CT of the abdomen did not show any nephrolithiasis or any other intra-abdominal abnormality patient has severe gastritis from the upper GI endoscopy that was done during this hospitalization. Patient is presently receiving low-dose of Tensed as he gets confused with higher doses and also I am and Tylenol as needed. We cannot use nonsteroidal anti-inflammatories secondary to gastritis. 02/17/2018 Patient is ablating with a brace when I evaluated the patient without any significant pain. Pain management, spinal surgeon evaluated the patient and patient will followed spinal surgeon as an outpatient pain management is recommending tramadol and Tylenol along with lidocaine patch all of which will be provided to the patient and patient will be discharged home with home care PHYSICAL EXAMINATION: GENERAL: The patient is alert and oriented x3, not in any acute distress. Thin built HEENT: Pupils are round and equally reacting to light. EOMI. No scleral icterus. No conjunctival pallor. Normocephalic, atraumatic. No pharyngeal erythema. No thyromegaly. CARDIOVASCULAR: S1 and S2 present. No murmurs, rubs, or gallops. PULMONARY: Chest is clear to auscultation, no wheezing or crackles. ABDOMEN: Soft, nontender, nondistended, normoactive bowel sounds. No palpable organomegaly. MUSCULOSKELETAL: No joint swelling or deformity. She does have tenderness the left paraspinal area left flank area. EXTREMITIES: No cyanosis, clubbing, or pedal edema. NEUROLOGICAL: Gross neurological examination did not reveal any focal deficits. SKIN: No rashes. Assessment and Plan Plan: -Chronic low back pain with recent compression fractures TLCO brace and pain management as mentioned above, -Severe gastritis patient is on Protonix -Chronic atrial fibrillation on anticoagulation and rate control medications presently rate controlled -COPD without any acute exacerbation Plan - Discharge Summary New Discharge Prescriptions: New Lidocaine [Aspercreme Patch] 1 patch TRANSDERM DAILY #30 patch Sucralfate [Carafate] 1 gm PO AC-BID #30 tab traMADol HCl [Ultram] 50 mg PO Q4HR PRN #18 tab PRN Reason: Moderate Pain Continue Fluticasone/Salmeterol [Advair 250-50 Diskus] 1 puff INHALATION RT-BID Apixaban [Eliquis] 5 mg PO BID Acetaminophen Tab [Tylenol] 1,000 mg PO Q6HR PRN PRN Reason: Pain Polyethylene Glycol 3350 [Miralax] 17 gm PO DAILY PRN PRN Reason: Constipation Docusate [Colace] 100 mg PO DAILY Linaclotide [Linzess] 290 mcg PO DAILY Discharge Medication List Fluticasone/Salmeterol [Advair 250-50 Diskus] 1 puff INHALATION RT-BID 02/28/14 [History] Apixaban [Eliquis] 5 mg PO BID 05/20/17 [History] Acetaminophen Tab [Tylenol] 1,000 mg PO Q6HR PRN 02/09/18 [History] Docusate [Colace] 100 mg PO DAILY 02/09/18 [History] Linaclotide [Linzess] 290 mcg PO DAILY 02/09/18 [History] Polyethylene Glycol 3350 [Miralax] 17 gm PO DAILY PRN 02/09/18 [History] Lidocaine [Aspercreme Patch] 1 patch TRANSDERM DAILY #30 patch 02/17/18 [Rx] Sucralfate [Carafate] 1 gm PO AC-BID #30 tab 02/17/18 [Rx] traMADol HCl [Ultram] 50 mg PO Q4HR PRN #18 tab 02/17/18 [Rx] Follow up Appointment(s)/Referral(s): Shlomo Arango PAC [PHYSICIAN TAPPER HELPER] - 03/06/18 9:30 am ( ) Francie Quiñones DO [Primary Care Provider] - 02/24/18 3:20 pm [facility], [NON-STAFF] - 1-2 Days Patient Instructions/Handouts: Gastritis (DC), Thoracolumbar Fracture (DC) Activity/Diet/Wound Care/Special Instructions: 1. Patient may wear Spinomed TLSO brace for comfort and support while sitting upright at greater than 45, while working with therapy, and while ambulating; patient does not have to wear the brace while lying in bed or bathing 2. Patient should avoid excessive bending, twisting, and lifting; no lifting greater than 10 pounds. 3. Regular diet. Discharge Disposition: HOME WITH HOME HEALTH SERVICES
== END 2018-02-17 12:18 | disposition home health service (06) | DRG 552 ==
LOC: EC 17:12 → 3OBS 21:27 → OBSVTOIN 02-09 18:45 → 4MS4W 02-10 21:14
PROVIDERS: ADMIT Hospitalist; ATTEND Hospitalist
PROC: 0DB78ZX Excision of Stomach, Pylorus, Via Natural or Artificial Opening Endoscopic, Diagnostic (ICD-10-PCS; principal; 2018-02-15 08:00)
PROC: 0DBL8ZX Excision of Transverse Colon, Via Natural or Artificial Opening Endoscopic, Diagnostic (ICD-10-PCS; principal; 2018-02-15 08:00)
PROC: 0DBN8ZX Excision of Sigmoid Colon, Via Natural or Artificial Opening Endoscopic, Diagnostic (ICD-10-PCS; principal; 2018-02-15 08:00)
DX: S32.020A Wedge compression fracture of second lumbar vertebra, initial encounter for closed fracture (principal); S22.080A Wedge compression fracture of T11-T12 vertebra, initial encounter for closed fracture; J98.11 Atelectasis; S32.030A Wedge compression fracture of third lumbar vertebra, initial encounter for closed fracture; K29.70 Gastritis, unspecified, without bleeding; I48.2 Chronic atrial fibrillation; J44.9 Chronic obstructive pulmonary disease, unspecified; K83.8 Other specified diseases of biliary tract; D69.6 Thrombocytopenia, unspecified; I49.3 Ventricular premature depolarization; M54.16 Radiculopathy, lumbar region; N40.0 Benign prostatic hyperplasia without lower urinary tract symptoms; G89.29 Other chronic pain; K57.30 Diverticulosis of large intestine without perforation or abscess without bleeding; D12.3 Benign neoplasm of transverse colon; D12.5 Benign neoplasm of sigmoid colon; M85.80 Other specified disorders of bone density and structure, unspecified site; I25.10 Atherosclerotic heart disease of native coronary artery without angina pectoris; K59.00 Constipation, unspecified; I51.7 Cardiomegaly; Z87.11 Personal history of peptic ulcer disease; Z79.01 Long term (current) use of anticoagulants; Z79.51 Long term (current) use of inhaled steroids; Z79.82 Long term (current) use of aspirin; Z79.899 Other long term (current) drug therapy; Z95.0 Presence of cardiac pacemaker; Z85.828 Personal history of other malignant neoplasm of skin; Z90.49 Acquired absence of other specified parts of digestive tract; Z98.42 Cataract extraction status, left eye; Z98.41 Cataract extraction status, right eye; Z87.891 Personal history of nicotine dependence; Z82.3 Family history of stroke; Z83.3 Family history of diabetes mellitus; Z91.81 History of falling; Z88.5 Allergy status to narcotic agent; Z88.8 Allergy status to other drugs, medicaments and biological substances
CPT/HCPCS: 36415; 43239; 45380; 45385; 74019; 74177; 80048; 80053; 80176; 81003; 82150; 83605; 83690; 84484; 85025; 85027; 85610; 88305; 88342; 93005; 94640; 94760; 96361; 96372; 96374; 96375; 99285

== ENCOUNTER → 2018-02-28 | Outpatient (CLI) | payer MEDICARE ==
--- NOTE | 2018-03-01 12:59 | CT ---
EXAMINATION TYPE: CT thoracic spine wo con DATE OF EXAM: 02/28/2018 COMPARISON: 2 view chest x-ray 06/11/2017 HISTORY: Pain in thoracic spine CT DLP: 537.5 mGycm Automated exposure control for dose reduction was used. TECHNIQUE: Axial images 3 mm thick sections. Reconstructed images in coronal and sagittal planes. FINDINGS: Structures are osteoporotic. L1 has prior vertebroplasty. There are superior endplate compression deformities of T11 and T12. Slightly greater at T11. There is a compression deformity at T8. The sagittal plane very minimal posterior wall displacement of the quintero perior endplate may be present. No spinal canal stenosis is present. No cord contact is evident. No focal disc herniations are evident. Compression deformities are age indeterminate. These may be interval finding from 06/11/2017 comparis on chest x-ray. IMPRESSION: 1. COMPRESSION DEFORMITY AT T8. VERY MINIMAL POSTERIOR WALL DISPLACEMENT OF THE SUPERIOR ENDPLATE MAY BE PRESENT IDENTIFIED ON SAGITTAL PLANE IMAGES WITHOUT SPINAL CANAL STENOSIS OR CORD CONTACT. 2. SUPERIOR ENDPLATE COMPRESSION DEFORMITIES, MODERATE AT T11 AND MILD AT T12. 3. OSTEOPOROSIS.
== END | disposition home or self-care (01) ==
LOC: RADCTMAIN 10:38
PROVIDERS: ATTEND Orthopaedic Surgery Orthopaedic Surgery of the Spine
DX: M81.0 Age-related osteoporosis without current pathological fracture (principal); G95.29 Other cord compression
CPT/HCPCS: 72128

== ENCOUNTER 2019-01-30 08:42 | Emergency (ER) | payer MEDICARE ==
[2019-01-30 08:55] VITALS: RESP 18
[2019-01-30] MEDS ORDERED: MORPHINE SULFATE 4 MG/ML SYRINGE IM STA (09:28)
--- NOTE | 2019-01-30 09:32 | ED ---
Back Pain HPI <Wilfredo Mckeon - Last Filed: 01/30/19 10:17> - General Source: patient, EMS Limitations: physical limitation <Charlette Tracy - Last Filed: 01/30/19 11:16> - General Chief Complaint: Back Pain/Injury Stated Complaint: Chronic back pain Time Seen by Provider: 01/30/19 08:48 - History of Present Illness Initial Comments: 88-year-old male patient presents to the emergency department today for evaluation of right hip pain started a little over a week ago. Patient states the pain has been progressively worsening and is now making it difficult to move or walk. Patient states the pain is a sharp stabbing pain to the right lateral to posterior hip. Patient states the pain does radiate down his leg. Patient is reporting some tingling to the right leg and foot. Patient denies any known injury with states he was picking strawberries around the time the pain started. Patient states he did take Tylenol at home for pain control but it didn't seem to help much. Denies any other medications. He denies any saddle anesthesia or loss of bowel or bladder control. Patient states that he did see us back spe cialist and did have multiple x-rays taken without any findings. They're considering physical therapy for symptom relief. Patient denies any recent rash, fever, chills, shortness breath, chest pain, abdominal pain, nausea, vomiting, diarrhea, constipation, dizziness, weakness, hematuria, dysuria, urinary urgency, urinary frequency, headache, visual changes, or any other complaints. (Charlette Tracy) - Related Data Home Medications Medication Instructions Recorded Confirmed Fluticasone/Salmeterol [Advair 1 puff INHALATION RT-BID 02/28/14 02/09/18 250-50 Diskus] Apixaban [Eliquis] 5 mg PO BID 05/20/17 02/09/18 Acetaminophen Tab [Tylenol] 1,000 mg PO Q6HR PRN 02/09/18 02/09/18 Docusate [Colace] 100 mg PO DAILY 02/09/18 02/09/18 Linaclotide [Linzess] 290 mcg PO DAILY 02/09/18 02/09/18 Polyethylene Glycol 3350 [Miralax] 17 gm PO DAILY PRN 07/23/18 07/23/18 Previous Rx's Medication Instructions Recorded Lidocaine [Aspercreme Patch] 1 patch TRANSDERM DAILY #30 patch 02/17/18 Omeprazole [PriLOSEC] 40 mg PO AC-BRKFST #30 capsule. 02/17/18 Sucralfate [Carafate] 1 gm PO AC-BID #30 tab 02/17/18 traMADol HCl [Ultram] 50 mg PO Q4HR PRN #18 tab 02/17/18 methylPREDNISolone [Medrol Dose 4 mg PO DIRECTED #1 pack 01/30/19 Pack] traMADol HCL [Ultram] 50 mg PO Q6HR PRN 3 Days #12 tab 01/30/19 Allergies Allergy/AdvReac Type Severity Reaction Status Date / Time codeine Allergy Intermediate Hallucinati Verified 01/30/19 08:55 ons prednisone AdvReac agitated Verified 01/30/19 08:55 Review of Systems ROS Other: All systems not noted in ROS Statement are negative. <Wilfredo Mckeon - Last Filed: 01/30/19 10:17> ROS Other: All systems not noted in ROS Statement are negative. <Charlette Tracy - Last Filed: 01/30/19 11:16> ROS Statement: Those systems with pertinent positive or pertinent negative responses have been documented in the HPI. 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 History of Any Multi-Drug Resistant Organisms: None Reported Past Surgical History: Appendectomy, Cholecystectomy, Heart Catheterization, Pac emaker Additional Past Surgical History / Comment(s): MICHEAL CATARACTS, ULCER SX.HEMORROID SX, HAD DUAL PACEMAKER IMPLANTED (SICK SINUS SYNDROME,AV NODE DISEAE,TACHYBRADY SYNDROME.. Stomach surgery r/t ulcer Past Anesthesia/Blood Transfusion Reactions: No Reported Reaction Type of Cardiac Device: Permanent Pacemaker Device Placement Date:: 2013 Past Psychological History: No Psychological Hx Reported Smoking Status: Former smoker - Past Family History Father Family Medical History: CVA/TIA Additional Family Medical History / Comment(s): NOT SURE IF HE HAD MINI STROKES OR HEART PROBLEM. DAD AT AGE 82 Mother Family Medical History: Diabetes Mellitus Additional Family Medical History / Comment(s): AT AGE 76 <Charlette Tracy - Last Filed: 01/30/19 11:16> General Exam Limitations: physical limitation General appearance: alert, in no apparent distress, other (This is a well- developed, well-nourished elderly male patient in no acute distress. Vital signs upon presentation are temperature 97.9F, pulse 77, respirations 18, blood pressure 129/68, pulse ox 95% on room air.) Respiratory exam: Present: normal lung sounds bilaterally. Absent: respiratory distress, wheezes, rales, rhonchi, stridor Cardiovascular Exam: Present: regular rate, normal rhythm, normal heart sounds. Absent: systolic murmur, diastolic murmur, rubs, gallop, clicks GI/Abdominal exam: Present: soft, normal bowel sounds. Absent: distended, tenderness, guarding, rebound, rigid Extremities exam: Present: normal inspection, full ROM, normal capillary refill, other (Skin to the lower extremities is pink, warm, dry. Cap refills less than 3 seconds. Pedal and posttibial pulses are 2+ and equal bilaterally.). Absent: tenderness, pedal edema, joint swelling, calf tenderness Back exam: Present: normal inspection. Absent: vertebral tenderness Neurological exam: Present: alert, oriented X3, CN II-XII intact, other (Strength in all 4 extremities is 5/5.) Psychiatric exam: Present: normal affect, normal mood Skin exam: Present: warm, dry, intact, normal color. 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 The patient imaging shows no evidence of acute fractures or subluxation. I do agree with the assessment and plan. (Wilfredo Mckeon) Medical Decision Making - Radiology Data Radiology results: report reviewed, image reviewed <Charlette Tracy Filed: 01/30/19 11:16> - Medical Decision Making 88-year-old male patient presents to the emergency department today for evaluation of right hip pain. Patient is reporting radiation of pain down his right leg with some tingling to the foot. No concerning symptoms for cauda equina. Physical examination reveals a soft nontender abdomen. Patient has good strength to the lower extremities. Neurovascular status is intact. CT of the pelvis without contrast was obtained and showed no evidence for acute fractures or dislocations. 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 Patient symptoms are consistent with mechanical hip pain. He'll be treated with pain medication and steroids. Is instructed to follow-up with his primary care physician for recheck as soon as possible. He is following with refrigeration specialist for this pain. He is currently receiving physical therapy. Return parameters were discussed in detail. He verbalizes understanding and agrees with this plan. (Charlette Tracy) - Radiology Data CT pelvis without contrast was obtained. Report was reviewed in its entirety. Impression by Dr. Irene shows no acute findings. There is moderate to severe axial joint space loss in both hips redemonstrated. SI joints are within normal limits. No fracture or dislocation. (Charlette Tracy) Disposition <Wilfredo Mckeon - Last Filed: 01/30/19 10:17> Is patient prescribed a controlled substance at d/c from ED?: Yes When asked, does pt state using other controlled substances?: No If prescribed controlled substance>3 days was MAPS reviewed?: Prescribed <3 Days If opioid is for acute pain is fill amount 7 days or less?: Yes If Rx opioid, was Start Talking consent form obtained?: Yes Time of Disposition: 10:43 <Charlette Tracy - Last Filed: 01/30/19 11:16> Clinical Impression: Right hip pain, Lumbar radiculopathy Disposition: HOME SELF-CARE Condition: Good Instructions (If sedation given, give patient instructions): Acute Low Back Pain (ED), Hip Pain (ED) Additional Instructions: Take medication as directed. Follow up with the primary care physician for recheck as soon as possible. Continue physical therapy. Follow-up with the refrigeration specialist for recheck as soon as possible. Return to the emergency department immediately for any new, worsening, or concerning symptoms. Prescriptions: methylPREDNISolone [Medrol Dose Pack] 4 mg PO DIRECTED #1 pack traMADol HCL [Ultram] 50 mg PO Q6HR PRN 3 Days #12 tab PRN Reason: Pain Referrals: Francie Quiñones DO [Primary Care Provider] - 1-2 days
--- NOTE | 2019-01-30 09:37 | CT ---
EXAMINATION TYPE: CT pelvis wo con DATE OF EXAM: 01/30/2019 COMPARISON: CT abdomen and pelvis February 08, 2018. HISTORY: Right hip and low back pain CT DLP: 291.9 mGycm Automated exposure control for dose reduction was used. FINDINGS: Osseous structures remain demineralized. There is moderate to severe axial joint space loss in both h ips redemonstrated. Sacroiliac joints are felt within normal limits. No acute fracture or dislocation is seen. Pubic symphysis is intact. There is facet arthropathy in the lower lumbar spine. Prostate gland is enlarged in size fall to the bladder base. Bladder wall shows mild concentric wall thickening consistent with outlet obstruction related to BPH, correlate clinically. No suspicious small or large bowel dilatation. Diverticula in the distal colon are present. There is moderate calcified plaque of the aorta extending into branch vessels. No suspicious bowel or fat containing inguinal hernias. No suspicious groin adenopathy. Muscle bulk bilateral thighs are ma intained. IMPRESSION: ABOVE. NO ACUTE FINDINGS ARE EVIDENT.
[2019-01-30 12:10] VITALS: BP 149/68; PULSE 78; TEMP 97.8
== END 2019-01-30 12:07 | disposition home or self-care (01) ==
LOC: EC 08:42
DX: M54.16 Radiculopathy, lumbar region (principal); M25.551 Pain in right hip; M16.0 Bilateral primary osteoarthritis of hip; I48.91 Unspecified atrial fibrillation; J44.9 Chronic obstructive pulmonary disease, unspecified; Z85.828 Personal history of other malignant neoplasm of skin; Z87.891 Personal history of nicotine dependence; Z79.01 Long term (current) use of anticoagulants; Z79.51 Long term (current) use of inhaled steroids; Z79.899 Other long term (current) drug therapy; Z88.5 Allergy status to narcotic agent; Z88.8 Allergy status to other drugs, medicaments and biological substances; Z95.0 Presence of cardiac pacemaker
CPT/HCPCS: 72192; 99284; 96372; J2270

== ENCOUNTER → 2020-03-29 | Outpatient (CLI) | payer MEDICARE ==
--- NOTE | 2020-03-30 07:27 | US ---
EXAMINATION TYPE: US kidneys/renal and bladder DATE OF EXAM: 03/29/2020 COMPARISON: NONE CLINICAL HISTORY: R31.0 Gross Hematuria. Gross hematuria x 2 months- resolved EXAM MEASUREMENTS: Right Kidney: 9.4 x 4.8 x 5.9 cm Left Kidney: 9.6 x 4.8 x 4.9 cm Suboptimal/limited visualization due to overlying bowel gas Right Kidney: limited visualization. Echogenic focus with slight shadow = 0.5 cm. Left Kidney: limited visualization Bladder: distended, anechoic. Prostate= 4.7 x 4.9 x 3.3 cm Bilateral Jets seen There is no evidence for hydronephrosis at this point in time. No masses are identified. The urinar y bladder is anechoic. Bilateral ureteral jets are seen. IMPRESSION: Nonobstructing right-sided nephrolithiasis. Prostate gland enlargement.
== END | disposition home or self-care (01) ==
LOC: RADUSWWP 16:18
PROVIDERS: ATTEND Urology
DX: N20.0 Calculus of kidney (principal); N40.0 Benign prostatic hyperplasia without lower urinary tract symptoms; Z88.5 Allergy status to narcotic agent
CPT/HCPCS: 76770

== ENCOUNTER → 2020-04-26 | Outpatient (CLI) | payer MEDICARE ==
--- NOTE | 2020-04-26 11:13 | XR ---
EXAMINATION TYPE: XR lumbar spine 2 or 3V DATE OF EXAM: 04/26/2020 CLINICAL HISTORY: pain TECHNIQUE: Three views of the lumbar spine are submitted. COMPARISON: CT of the thoracic spine February 28, 2018 FINDINGS: Vertebroplasty changes are again noted of L1. There is chronic moderate compression fracture superior endplate of L2. Mild loss of height is seen of L3, L4 and L5 of uncertain age and/or etiology. Chron ic T12 fracture seen as well. Alignment is anatomic. Mild scattered degenerative disc space narrowing . IMPRESSION: Multiple chronic appearing fractures noted.
== END | disposition home or self-care (01) ==
LOC: RADXRYALE 10:49
PROVIDERS: ATTEND Family Medicine
DX: M54.5 Low back pain (principal); Z87.310 Personal history of (healed) osteoporosis fracture
CPT/HCPCS: 72100

== ENCOUNTER 2020-07-08 07:55 | Inpatient (IN) | payer MEDICARE ==
[2020-07-08] MEDS ORDERED: SODIUM CHLORIDE 0.9% 1,000 ML IV STA (08:01)
--- NOTE | 2020-07-08 08:06 | ED ---
General Adult HPI - General Chief complaint: Abdominal Pain Stated complaint: abd pain Time Seen by Provider: 07/08/20 07:55 Source: EMS, RN notes reviewed, old records reviewed Mode of arrival: EMS Limitations: altered mental status - History of Present Illness Initial comments: This is a 81-year-old male with a history of hypertension and pacemaker A. fib COPD who is brought in by EMS today due to status nausea vomiting diarrhea. He purely also said of his chair today no reported injuries. He is nothing very conversant and route and somewhat combative and uncooperative. No reports of fevers chills sweats or cough. - Related Data Home Medications Medication Instructions Recorded Confirmed Fluticasone/Salmeterol [Advair 1 puff INHALATION RT-BID 02/28/14 07/08/20 250-50 Diskus] Apixaban [Eliquis] 5 mg PO BID 05/20/17 07/08/20 Fexofenadine HCl [Rupal Allergy] 180 mg PO DAILY 07/08/20 07/08/20 Fluticasone Nasal [place] [Flonase 1 spray EA NOSTRIL BID 07/08/20 07/08/20 Nasal [place]] Metoprolol Succinate [Toprol XL] 25 mg PO DAILY 07/08/20 07/08/20 Allergies Allergy/AdvReac Type Severity Reaction Status Date / Time codeine Allergy Intermediate Hallucinati Verified 07/08/20 09:52 ons prednisone AdvReac agitated Verified 07/08/20 09:52 Review of Systems ROS Statement: Those systems with pertinent positive or pertinent negative responses have been documented in the HPI. ROS Other: All systems not noted in ROS Statement are negative. 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 History of Any Multi-Drug Resistant Organisms: None Reported Past Surgical History: Appendectomy, Cholecystectomy, Heart Catheterization, Pacemaker Additional Past Surgical History / Comment(s): MICHEAL CATARACTS, ULCER SX.HEMORROID SX, HAD DUAL PACEMAKER IMPLANTED (SICK SINUS SYNDROME,AV NODE DISEAE,TACHYBRADY SYNDROME.. Stomach surgery r/t ulcer Past Anesthesia/Blood Transfusion Reactions: No Reported Reaction Type of Cardiac Device: Permanent Pacemaker Device Placement Date:: 2013 Past Psychological History: No Psychological Hx Reported Smoking Status: Current every day smoker Past Alcohol Use History: Rare Past Drug Use History: None Reported - Past Family History Father Family Medical History: CVA/TIA Additional Family Medical History / Comment(s): NOT SURE IF HE HAD MINI STROKES OR HEART PROBLEM. DAD AT AGE 82 Mother Family Medical History: Diabetes Mellitus Additional Family Medical History / Comment(s): AT AGE 76 General Exam - General Exam Comments Initial Comments: This is a well-developed asthenic appearing male who is awake alert but lethargic. Slow to respond to requests Limitations: altered mental status General appearance: alert, in no apparent distress Head exam: Present: atraumatic, normocephalic, normal inspection Eye exam: Present: normal appearance, PERRL, EOMI. Absent: scleral icterus, conjunctival injection, periorbital swelling ENT exam: Present: mucous membranes dry Neck exam: Present: normal inspection. Absent: tenderness, meningismus, lymphadenopathy Respiratory exam: Present: normal lung sounds bilaterally, other (Pectus excavatum is noted). Absent: respiratory distress, wheezes, rales, rhonchi, stridor Cardiovascular Exam: Present: regular rate, normal rhythm, normal heart sounds. Absent: systolic murmur, diastolic murmur, rubs, gallop, clicks GI/Abdominal exam: Present: soft, normal bowel sounds. Absent: distended, tenderness, guarding, rebound, rigid Extremities exam: Present: normal inspection, full ROM, normal capillary refill. Absent: tenderness, pedal edema, joint swelling, calf tenderness Back exam: Present: normal inspection Neurological exam: Present: alert, oriented X3, CN II-XII intact Psychiatric exam: Present: normal affect, normal mood Skin exam: Present: warm, dry, intact, normal color. Absent: rash Course Vital Signs 07/08/20 07/08/20 07/08/20 07:56 09:22 09:30 Temperature 97.6 F Pulse Rate 85 79 72 Respiratory 17 16 17 Rate Blood Pressure 176/95 165/75 165/75 O2 Sat by Pulse 94 L 96 96 Oximetry 07/08/20 09:40 Temperature Pulse Rate 67 Respiratory 14 Rate Blood Pressure 149/70 O2 Sat by Pulse 96 Oximetry - Reevaluation(s) Reevaluation #1: 07/08/20 11:41 The patient was somewhat agitated and did require some IV sedation. Medical Decision Making - Medical Decision Making I did discuss findings with the admitting physician. Patient will be admitted for evaluation of pneumonia elevated ammonia level altered mental status - Lab Data Result diagrams: 07/08/20 09:28 07/08/20 09:28 Lab Results 07/08/20 07/08/20 07/08/20 Range/Units 08:05 08:10 09:28 WBC 4.3 (3.8-10.6) k/uL RBC 4.52 (4.30-5.90) m/uL Hgb 13.6 (13.0-17.5) gm/dL Hct 39.3 (39.0-53.0) % MCV 86.8 (80.0-100.0) fL MCH 30.0 (25.0-35.0) pg MCHC 34.6 (31.0-37.0) g/dL RDW 12.8 (11.5-15.5) % Plt Count 109 L (150-450) k/uL MPV 8.0 Neutrophils % 77 % Lymphocytes % 11 % Monocytes % 7 % Eosinophils % 2 % Basophils % 0 % Neutrophils # 3.3 (1.3-7.7) k/uL Lymphocytes # 0.5 L (1.0-4.8) k/uL Monocytes # 0.3 (0-1.0) k/uL Eosinophils # 0.1 (0-0.7) k/uL Basophils # 0.0 (0-0.2) k/uL Sodium (137-145) mmol/L Potassium (3.5-5.1) mmol/L Chloride (98-107) mmol/L Carbon Dioxide (22-30) mmol/L Anion Gap mmol/L BUN (9-20) mg/dL Creatinine (0.66-1.25) mg/dL Est GFR (CKD-EPI)AfAm (>60 ml/min/1.73 sqM) Est GFR (CKD-EPI)NonAf (>60 ml/min/1.73 sqM) Glucose (74-99) mg/dL POC Glucose (mg/dL) 150 H (75-99) mg/dL POC Glu Nailhead Puncher ID Tiesha Bronson Calcium (8.4-10.2) mg/dL Magnesium (1.6-2.3) mg/dL Total Bilirubin (0.2-1.3) mg/dL AST (17-59) U/L ALT (4-49) U/L Alkaline Phosphatase (38-126) U/L Ammonia (<30) umol/L Creatine Kinase (55-170) U/L NT-Pro-B Natriuret Pep pg/mL Total Protein (6.3-8.2) g/dL Albumin (3.5-5.0) g/dL Lipase (23-300) U/L Urine Color Yellow Urine Appearance Clear (Clear) Urine pH 6.5 (5.0-8.0) Ur Specific [place] 1.017 (1.001-1.035) Urine Protein Negative (Negative) Urine Glucose (UA) Negative (Negative) Urine Ketones Negative (Negative) Urine Blood Small H (Negative) Urine Nitrite Negative (Negative) Urine Bilirubin Negative (Negative) Urine Urobilinogen 3.0 (<2.0) mg/dL Ur Leukocyte Esterase Negative (Negative) Urine RBC 16 H (0-5) /hpf Urine WBC <1 (0-5) /hpf Hyaline Casts 1 (0-2) /lpf Urine Mucus Rare H (None) /hpf Coronavirus (PCR) (Not Detectd) 07/08/20 07/08/20 07/08/20 Range/Units 09:28 09:28 09:28 WBC (3.8-10.6) k/uL RBC (4.30-5.90) m/uL Hgb (13.0-17.5) gm/dL Hct (39.0-53.0) % MCV (80.0-100.0) fL MCH (25.0-35.0) pg MCHC (31.0-37.0) g/dL RDW (11.5-15.5) % Plt Count (150-450) k/uL MPV Neutrophils % % Lymphocytes % % Monocytes % % Eosinophils % % Basophils % % Neutrophils # (1.3-7.7) k/uL Lymphocytes # (1.0-4.8) k/uL Monocytes # (0-1.0) k/uL Eosinophils # (0-0.7) k/uL Basophils # (0-0.2) k/uL Sodium 139 (137-145) mmol/L Potassium 3.8 (3.5-5.1) mmol/L Chloride 112 H (98-107) mmol/L Carbon Dioxide 23 (22-30) mmol/L Anion Gap 4 mmol/L BUN 19 (9-20) mg/dL Creatinine 0.73 (0.66-1.25) mg/dL Est GFR (CKD-EPI)AfAm >90 (>60 ml/min/1.73 sqM) Est GFR (CKD-EPI)NonAf 83 (>60 ml/min/1.73 sqM) Glucose 139 H (74-99) mg/dL POC Glucose (mg/dL) (75-99) mg/dL POC Glu Nailhead Puncher ID Calcium 8.6 (8.4-10.2) mg/dL Magnesium 1.8 (1.6-2.3) mg/dL Total Bilirubin 1.5 H (0.2-1.3) mg/dL AST 27 (17-59) U/L ALT 19 (4-49) U/L Alkaline Phosphatase 56 (38-126) U/L Ammonia 78 H (<30) umol/L Creatine Kinase 67 (55-170) U/L NT-Pro-B Natriuret Pep 470 pg/mL Total Protein 6.1 L (6.3-8.2) g/dL Albumin 3.4 L (3.5-5.0) g/dL Lipase 87 (23-300) U/L Urine Color Urine Appearance (Clear) Urine pH (5.0-8.0) Ur Specific [place] (1.001-1.035) Urine Protein (Negative) Urine Glucose (UA) (Negative) Urine Ketones (Negative) Urine Blood (Negative) Urine Nitrite (Negative) Urine Bilirubin (Negative) Urine Urobilinogen (<2.0) mg/dL Ur Leukocyte Esterase (Negative) Urine RBC (0-5) /hpf Urine WBC (0-5) /hpf Hyaline Casts (0-2) /lpf Urine Mucus (None) /hpf Coronavirus (PCR) (Not Detectd) 07/08/20 Range/Units 10:56 WBC (3.8-10.6) k/uL RBC (4.30-5.90) m/uL Hgb (13.0-17.5) gm/dL Hct (39.0-53.0) % MCV (80.0-100.0) fL MCH (25.0-35.0) pg MCHC (31.0-37.0) g/dL RDW (11.5-15.5) % Plt Count (150-450) k/uL MPV Neutrophils % % Lymphocytes % % Monocytes % % Eosinophils % % Basophils % % Neutrophils # (1.3-7.7) k/uL Lymphocytes # (1.0-4.8) k/uL Monocytes # (0-1.0) k/uL Eosinophils # (0-0.7) k/uL Basophils # (0-0.2) k/uL Sodium (137-145) mmol/L Potassium (3.5-5.1) mmol/L Chloride (98-107) mmol/L Carbon Dioxide (22-30) mmol/L Anion Gap mmol/L BUN (9-20) mg/dL Creatinine (0.66-1.25) mg/dL Est GFR (CKD-EPI)AfAm (>60 ml/min/1.73 sqM) Est GFR (CKD-EPI)NonAf (>60 ml/min/1.73 sqM) Glucose (74-99) mg/dL POC Glucose (mg/dL) (75-99) mg/dL POC Glu Nailhead Puncher ID Calcium (8.4-10.2) mg/dL Magnesium (1.6-2.3) mg/dL Total Bilirubin (0.2-1.3) mg/dL AST (17-59) U/L ALT (4-49) U/L Alkaline Phosphatase (38-126) U/L Ammonia (<30) umol/L Creatine Kinase (55-170) U/L NT-Pro-B Natriuret Pep pg/mL Total Protein (6.3-8.2) g/dL Albumin (3.5-5.0) g/dL Lipase (23-300) U/L Urine Color Urine Appearance (Clear) Urine pH (5.0-8.0) Ur Specific [place] (1.001-1.035) Urine Protein (Negative) Urine Glucose (UA) (Negative) Urine Ketones (Negative) Urine Blood (Negative) Urine Nitrite (Negative) Urine Bilirubin (Negative) Urine Urobilinogen (<2.0) mg/dL Ur Leukocyte Esterase (Negative) Urine RBC (0-5) /hpf Urine WBC (0-5) /hpf Hyaline Casts (0-2) /lpf Urine Mucus (None) /hpf Coronavirus (PCR) Not Detected (Not Detectd) - EKG Data -: EKG Interpreted by Me EKG Comments: Sinus rhythm 80. Interval 188 QRS duration 84 QT since QTC 420/46: QT st-t wave changes - Radiology Data Radiology results: report reviewed (Imaging reviewed evidence of a right upper lobe and left lower lobe infiltrate on x-ray), image reviewed Critical Care Time Critical Care Time: Yes Total Critical Care Time: 32 Critical Care Time: Critical care time including initial presentation with history physical labs x- rays multiple reevaluation the patient discussed with the admitting physician admission orders review of old charting was available Disposition Clinical Impression: Acute metabolic encephalopathy, Pneumonia, Increased ammonia level Disposition: ADMITTED IP TO THIS [facility] Condition: Fair Referrals: Francie Quiñones DO [Primary Care Provider] - 1-2 days
[2020-07-08 08:07] LABS: Glucose,Whole Blood 150 mg/dL (75-99)
[2020-07-08 08:48] LABS: Appearance,Urine Clear (Clear); Bilirubin,Urine Negative (Negative); Blood,Urine Small (Negative); Color,Urine Yellow; Glucose,Urine (UA) Negative (Negative); Hyaline Casts,Urine 1 /lpf (0-2); Ketones,Urine Negative (Negative); Leukocyte Esterase,Urine Negative (Negative); Mucus,Urine Rare /hpf; Nitrite,Urine Negative (Negative); PH, Urine 6.5 (5.0-8.0); Protein,Urine Negative (Negative); RBC,Urine 16 /hpf (0-5); Specific Gravity,Urine 1.017 (1.001-1.035); WBC,Urine <1 /hpf (0-5)
--- NOTE | 2020-07-08 08:54 | XR ---
EXAMINATION TYPE: XR chest 2V DATE OF EXAM: 07/08/2020 COMPARISON: 05/21/2017 TECHNIQUE: PA and lateral views submitted. HISTORY: Altered mental status FINDINGS: Hyperinflation suggests COPD diffuse osteopenia and arthropathy shoulders. Patchy infiltrate right up per lobe and left lower lobe increased interstitial pattern. Heart size normal. Cardiac device noted. No sizable pneumothorax or pleural effusion. IMPRESSION: 1. COPD with patchy right upper lobe and left lower lobe areas of infiltrate correlate for pneumonia versus CHF.
[2020-07-08 09:36] LABS: Basophils % (A) 0 %; Eosinophils # (A) 0.1 k/uL (0-0.7); Eosinophils % (A) 2 %; HCT 39.3 % (39.0-53.0); HGB 13.6 gm/dL (13.0-17.5); Lymphocytes # (A) 0.5 k/uL (1.0-4.8); Lymphocytes % (A) 11 %; MCHC 34.6 g/dL (31.0-37.0); MCV 86.8 fL (80.0-100.0); Monocytes # (A) 0.3 k/uL (0-1.0); Monocytes % (A) 7 %; Neutrophils # (A) 3.3 k/uL (1.3-7.7); Neutrophils % (A) 77 %; Platelet Count 109 k/uL (150-450); RBC 4.52 m/uL (4.30-5.90); RDW 12.8 % (11.5-15.5); WBC 4.3 k/uL (3.8-10.6)
[2020-07-08 10:14] LABS: ALT 19 U/L (4-49); AST 27 U/L (17-59); African American GFR (CKD) >90 (>60 ml/min/1.73 sqM); Albumin 3.4 g/dL (3.5-5.0); Alkaline Phosphatase 56 U/L (38-126); Anion Gap 4 mmol/L; Blood Urea Nitrogen 19 mg/dL (9-20); Calcium 8.6 mg/dL (8.4-10.2); Carbon Dioxide 23 mmol/L (22-30); Chloride 112 mmol/L (98-107); Creatine Kinase 67 U/L (55-170); Glucose 139 mg/dL (74-99); Lipase 87 U/L (23-300); Magnesium 1.8 mg/dL (1.6-2.3); Non-African American GFR(CKD) 83 (>60 ml/min/1.73 sqM); Potassium 3.8 mmol/L (3.5-5.1); Sodium 139 mmol/L (137-145); Total Bilirubin 1.5 mg/dL (0.2-1.3); Total Protein 6.1 g/dL (6.3-8.2)
[2020-07-08] MEDS ORDERED: LORazepam 2 MG/ML INJ IV STA (10:45)
--- NOTE | 2020-07-08 10:59 | CT ---
EXAMINATION TYPE: CT brain wo con DATE OF EXAM: 07/08/2020 COMPARISON: 07/19/2015 HISTORY: Altered mental status CT DLP: 1070.4 mGycm Automated exposure control for dose reduction was used. FINDINGS: There is diffuse cerebral cortical atrophy. There is moderate patchy hypodensity in the periventricul ar white matter. There is mucosal thickening in the frontal and anterior ethmoid sinuses. There is no midline shift. There is no acute intracranial hemorrhage. Calvarium appears intact. Calcification th e basal ganglia bilaterally. IMPRESSION: DEGENERATIVE AND NONSPECIFIC WHITE MATTER CHANGES MOST TYPICAL REMOTE ISCHEMIA.
[2020-07-08] MEDS ORDERED: IPRATROPIUM-ALBUTEROL 3 ML NEB INHALATION PRN (11:45)
[2020-07-08] MEDS ORDERED: AZITHROMYCIN 500 MG in SODIUM CHLORIDE 0.9% 250 ML IVPB STA (11:45)
[2020-07-08] MEDS: cefTRIAXone IN SWFI 1,000 MG/10 ML SYRINGE IVP SCH ×2 (11:45→11:46)
[2020-07-08] MEDS ORDERED: PNEUMONIA PROTOCOL UTILIZED 1 EACH MISC PO PRN (11:45)
[2020-07-08] MEDS ORDERED: LACTULOSE 20 GM/30 ML CUP PO ONE (11:50)
[2020-07-08] MEDS: SODIUM CHLORIDE 0.9% 1,000 ML IV SCH (12:20)
[2020-07-08] MEDS ORDERED: HALOPERIDOL LACTATE 5 MG/ML 1 ML VIAL IVP PRN (14:40)
--- NOTE | 2020-07-08 15:32 | P.HPIM ---
History of Present Illness 89-year-old male was brought in because of nausea vomiting diarrhea. I'm unable to get any kind of history from the patient is patient is drowsy arousable but unable to provide any history because of his a day excessive drowsiness from Ativan he received from ER. Patient was quite a bit agitated in ER. I'm unable to reach any family at this time given the physical exam is limited. Patient doesn't have any fever doesn't have any leukocytosis chest x-ray showing infiltrate in the right upper lobe and left lower lobe because of which patient is admitted with the diagnosis of pneumonia and patient was started on Rocephin and azithromycin patient also has mildly elevated ammonia level doesn't have any peripheral signs of cirrhosis and moderate INR. Patient doesn't appear to have any history of cirrhosis in the past either. 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 History of Any Multi-Drug Resistant Organisms: None Reported Past Surgical History: Appendectomy, Cholecystectomy, Heart Catheterization, Pacemaker Additional Past Surgical History / Comment(s): MICHEAL CATARACTS, ULCER SX.HEMORROID SX, HAD DUAL PACEMAKER IMPLANTED (SICK SINUS SYNDROME,AV NODE DISEAE,TACHYBRADY SYNDROME.. Stomach surgery r/t ulcer Past Anesthesia/Blood Transfusion Reactions: No Reported Reaction Type of Cardiac Device: Permanent Pacemaker Device Placement Date:: 2013 Past Psychological History: No Psychological Hx Reported Smoking Status: Current every day smoker Past Alcohol Use History: Rare Past Drug Use History: None Reported - Past Family History Father Family Medical History: CVA/TIA Additional Family Medical History / Comment(s): NOT SURE IF HE HAD MINI STROKES OR HEART PROBLEM. DAD AT AGE 82 Mother Family Medical History: Diabetes Mellitus Additional Family Medical History / Comment(s): AT AGE 76 Medications and Allergies Home Medications Medication Instructions Recorded Confirmed Type Fluticasone/Salmeterol [Advair 1 puff INHALATION RT-BID 02/28/14 07/08/20 History 250-50 Diskus] Apixaban [Eliquis] 5 mg PO BID 05/20/17 07/08/20 History Fexofenadine HCl [Rupal Allergy] 180 mg PO DAILY 07/08/20 07/08/20 History Fluticasone Nasal [place] [Flonase 1 spray EA NOSTRIL BID 07/08/20 07/08/20 History Nasal [place]] Metoprolol Succinate [Toprol XL] 25 mg PO DAILY 07/08/20 07/08/20 History Allergies Allergy/AdvReac Type Severity Reaction Status Date / Time codeine Allergy Intermediate Hallucinati Verified 07/08/20 09:52 ons prednisone AdvReac agitated Verified 07/08/20 09:52 Physical Exam Vitals: Vital Signs Temp Pulse Resp BP Pulse Ox 07/08/20 11:45 96 07/08/20 09:40 67 14 149/70 96 07/08/20 09:30 72 17 165/75 96 07/08/20 09:22 79 16 165/75 96 07/08/20 07:56 97.6 F 85 17 176/95 94 L Intake and Output 07/08/20 07/08/20 07/08/20 06:59 14:59 22:59 Other: Weight 58.967 kg PHYSICAL EXAMINATION: GENERAL: The patient is sleeping drowsy and able to assess, thin built HEENT: Pupils are round and equally reacting to light. EOMI. No scleral icterus. No conjunctival pallor. Normocephalic, atraumatic. No pharyngeal erythema. No thyromegaly. CARDIOVASCULAR: S1 and S2 present. No murmurs, rubs, or gallops. PULMONARY:unable to assess ABDOMEN: Soft, nontender, nondistended, normoactive bowel sounds. No palpable organomegaly. MUSCULOSKELETAL: No joint swelling or deformity. EXTREMITIES: No cyanosis, clubbing, or pedal edema. NEUROLOGICAL: unable to assess SKIN: No rashes. Results CBC & Chem 7: 07/08/20 09:28 07/08/20 09:28 Labs: Abnormal Lab Results - Last 24 Hours (Table) 07/08/20 07/08/20 07/08/20 Range/Units 08:05 08:10 09:28 Plt Count 109 L (150-450) k/uL Lymphocytes # 0.5 L (1.0-4.8) k/uL Chloride (98-107) mmol/L Glucose (74-99) mg/dL POC Glucose (mg/dL) 150 H (75-99) mg/dL Total Bilirubin (0.2-1.3) mg/dL Ammonia (<30) umol/L Total Protein (6.3-8.2) g/dL Albumin (3.5-5.0) g/dL Urine Blood Small H (Negative) Urine RBC 16 H (0-5) /hpf Urine Mucus Rare H (None) /hpf 07/08/20 07/08/20 Range/Units 09:28 09:28 Plt Count (150-450) k/uL Lymphocytes # (1.0-4.8) k/uL Chloride 112 H (98-107) mmol/L Glucose 139 H (74-99) mg/dL POC Glucose (mg/dL) (75-99) mg/dL Total Bilirubin 1.5 H (0.2-1.3) mg/dL Ammonia 78 H (<30) umol/L Total Protein 6.1 L (6.3-8.2) g/dL Albumin 3.4 L (3.5-5.0) g/dL Urine Blood (Negative) Urine RBC (0-5) /hpf Urine Mucus (None) /hpf Assessment and Plan Plan: -possibly of pneumonia: Patient will be started on Rocephin and azithromycin and this will be continued -Agitation: Several secondary to metabolic or toxic encephalopathy patient may have some baseline senile or vascular dementia and word benzodiazepines, opiates and barbiturates. Patient will be started on heparin on an as-needed basis along with Seroquel at nighttime if needed -COPD without any acute exacerbation -Hypertension -Atrial fibrillation presently rate controlled continue his metoprolol and Eliquis Generalized deconditioning physical therapy and occupational therapy evaluation. -elevated ammonia level etiology is not clear there's only mild elevation patient was given lactulose patient doesn't have any signs or symptoms of cirrhosis INR will be obtained for tomorrow there may be contribution of hepatic encephalopathy leading to his current fusion
[2020-07-08] MEDS ORDERED: HALOPERIDOL LACTATE 5 MG/ML 1 ML VIAL IM PRN (19:05)
[2020-07-08] MEDS: APIXABAN 5 MG TAB PO SCH (20:02)
[2020-07-08] MEDS: FAMOTIDINE 20 MG TAB PO SCH (20:02)
[2020-07-08] MEDS: SYMBICORT 80-4.5 MCG INHALER INHALATION SCH (20:46)
[2020-07-08] MEDS: QUEtiapine 25 MG TAB PO PRN (21:00)
[2020-07-09] MEDS: SODIUM CHLORIDE 0.9% 1,000 ML IV SCH ×3 (00:34→20:36)
--- NOTE | 2020-07-09 07:37 | XR ---
EXAMINATION TYPE: XR chest 1V DATE OF EXAM: 07/09/2020 HISTORY: Shortness of breath. COMPARISON: 07/08/2020 TECHNIQUE: Single view of the chest is submitted. FINDINGS: Demonstrated are scattered senescent parenchymal change. Resolution of the right upper lobe and left perihilar infiltrates. The heart is stable. Hilar and mediastinal structures are within normal limits. Degenerative changes are seen of the dorsal spine. IMPRESSION: 1. Resolution of the right upper lobe and left perihilar infiltrates.
[2020-07-09] MEDS: SYMBICORT 80-4.5 MCG INHALER INHALATION SCH ×2 (07:42→20:09)
[2020-07-09 07:47] LABS: HCT 37.6 % (39.0-53.0); HGB 13.1 gm/dL (13.0-17.5); MCH 30.6 pg (25.0-35.0); MCHC 34.9 g/dL (31.0-37.0); MCV 87.5 fL (80.0-100.0); Mean Platelet Volume 8.5; Platelet Count 106 k/uL (150-450); RBC 4.29 m/uL (4.30-5.90); RDW 12.9 % (11.5-15.5); WBC 7.7 k/uL (3.8-10.6)
[2020-07-09] MEDS: AZITHROMYCIN 500 MG TAB PO SCH (08:52)
[2020-07-09] MEDS: FAMOTIDINE 20 MG TAB PO SCH ×2 (08:53→08:56)
[2020-07-09] MEDS: METOPROLOL SUCCINATE (ER) 25 MG TAB.ER.24H PO SCH (08:53)
[2020-07-09] MEDS: APIXABAN 5 MG TAB PO SCH ×2 (08:53→20:29)
[2020-07-09] MEDS ORDERED: ENOXAPARIN 40 MG/0.4 ML SYRINGE SQ SCH (09:00)
[2020-07-09 10:51] VITALS: BMI 19.2
--- NOTE | 2020-07-09 11:55 | US ---
EXAMINATION TYPE: US abdomen limited DATE OF EXAM: 07/09/2020 COMPARISON: CT 2018 CLINICAL HISTORY: Elevated ammonia, evaluate for liver disease. EXAM MEASUREMENTS: Liver Length: 14.7 cm Gallbladder Wall: Surgically absent CBD: 1.0 cm Right Kidney: not seen in entirety Technically difficult study due to extensive midline bowel gas. Pancreas: Obscured by bowel gas Liver: limited visualization to intercostal window, visualized portions wnl. Gallbladder: Surgically absent CBD: measures 1.0 cm Right Kidney: only small portion of kidney seen due to extensive midline bowel gas. IMPRESSION: No distinct abnormality appreciated.
[2020-07-09] MEDS ORDERED: AZITHROMYCIN 500 MG TAB PO SCH (12:00)
--- NOTE | 2020-07-09 12:02 | P.PN ---
Subjective 89-year-old male was brought in because of nausea vomiting diarrhea. I'm unable to get any kind of history from the patient is patient is drowsy arousable but unable to provide any history because of his a day excessive drowsiness from Ativan he received from ER. Patient was quite a bit agitated in ER. I'm unable to reach any family at this time given the physical exam is limited. Patient doesn't have any fever doesn't have any leukocytosis chest x-ray showing infiltrate in the right upper lobe and left lower lobe because of which patient is admitted with the diagnosis of pneumonia and patient was started on Rocephin and azithromycin patient also has mildly elevated ammonia level doesn't have any peripheral signs of cirrhosis and moderate INR. Patient doesn't appear to have any history of cirrhosis in the past either. Patient was given lactulose. 07/09/2020 Patient is more agitated today disease did receive furosemide for Haldol. Patient has decreased his briskly secondary to hospitalization related delirium. Patient confusion on admission admission is probably secondary to sepsis. Continue with present antibiotics. Ammonia level has gone down to 9 patient had multiple bowel movements lactulose will be discontinued there is no evidence of cirrhosis at this time. review of systems: Unable to obtain due to his clinical condition All inpatient medications were reviewed and appropriate changes in these medications as dictated in the interval history and assessment and plan. Objective - Vital Signs Vital signs: Vital Signs Temp 98.0 F 07/09/20 04:53 Pulse 116 H 07/09/20 04:53 Resp 18 07/09/20 04:53 BP 178/88 07/09/20 04:53 Pulse Ox 93 L 07/09/20 04:53 Intake & Output 07/08/20 07/09/20 07/09/20 18:59 06:59 18:59 Intake Total 1320 Balance 1320 Weight 58.967 kg 58.967 kg Intake: Intake, IV Titration 1200 Amount Sodium Chloride 0.9% 1, 1200 000 ml @ 100 mls/hr IV . Q10H [facility] Rx#:[id number] Oral 120 Other: Voiding Method Diaper Diaper # Voids 1 1 # Bowel Movements 2 2 1 - Exam PHYSICAL EXAMINATION: GENERAL: patient is sleepy did receive Haldol but easily arousable but gets agitated if he wakes up. HEENT: Pupils are round and equally reacting to light. EOMI. No scleral icterus. No conjunctival pallor. Normocephalic, atraumatic. No pharyngeal erythema. No thyromegaly. CARDIOVASCULAR: S1 and S2 present. No murmurs, rubs, or gallops. PULMONARY: Chest is clear to auscultation, no wheezing or crackles. ABDOMEN: Soft, nontender, nondistended, normoactive bowel sounds. No palpable organomegaly. MUSCULOSKELETAL: No joint swelling or deformity. EXTREMITIES: No cyanosis, clubbing, or pedal edema. NEUROLOGICAL: moving all 4 limbs SKIN: No rashes. - Labs CBC & Chem 7: 07/09/20 07:30 07/08/20 09:28 Labs: Abnormal Lab Results - Last 24 Hours (Table) 07/09/20 Range/Units 07:30 RBC 4.29 L (4.30-5.90) m/uL Hct 37.6 L (39.0-53.0) % Plt Count 106 L (150-450) k/uL Assessment and Plan Plan: -possibly of pneumonia: Patient will be started on Rocephin and azithromycin and this will be continued -Agitation: Several secondary to metabolic or toxic encephalopathy which improved presently patient is confused because of hospitalization related deliriumpatient may have some baseline senile or vascular dementia and word benzodiazepines, opiates and barbiturates. Patient will be started on heparin on an as-needed basis along with Seroquel at nighttime if needed -COPD without any acute exacerbation -Hypertension -Atrial fibrillation presently rate controlled continue his metoprolol and Eliquis Generalized deconditioning physical therapy and occupational therapy evaluation. -elevated ammonia level etiology is not clearno evidence of cirrhosis patient h ad multiple bowel movements and ammonia came down.
[2020-07-09 12:13] LABS: African American GFR (CKD) 69.1 (60.0-200.0); Albumin 3.6 g/dL (3.80-4.90); Albumin/Globulin Ratio 1.89 (1.60-3.17); Anion Gap 9.5 mmol/L (4.00-12.00); BUN/Creat Ratio 16.36 Ratio (12.00-20.00); Calcium 8.9 mg/dL (8.7-10.3); Carbon Dioxide 24.5 mmol/L (21.6-31.8); Globulin 1.9 g/dL (1.6-3.3); Non-African American GFR(CKD) 59.6 (60.0-200.0); Potassium 3.3 mmol/L (3.5-5.5); Total Bilirubin 1.8 mg/dL (0.2-1.2); Total Protein 5.5 g/dL (6.2-8.2)
[2020-07-09 12:16] LABS: INR 1.09 (0.90-1.11); Prothrombin Time 11.7 sec (9.9-11.9)
--- NOTE | 2020-07-09 13:24 | P.CONS ---
History of Present Illness - Reason for Consult Consult date: 07/09/20 Elevated ammonia Requesting physician: Murali Srinivasan - Chief Complaint Nausea, vomiting, diarrhea - History of Present Illness 89-year-old male with multiple medical comorbidities including chronic atrial fibrillation, sick sinus syndrome status post pacemaker placement in the past, COPD, prior cholecystectomy and a remote history of peptic ulcer disease status post Billroth I surgery in the past who presented for nausea, vomiting and diarrhea. Chest x-ray on presentation was suggestive of possible right upper lobe infiltrate and pneumonia for which patient is currently receiving treatment. Ammonia was also found to be elevated at 78 on presentation currentl y 9. Other laboratory evaluation significant for WBC 7.7, hemoglobin 13.1, blood count 106,000 with a total bilirubin 1.5, alkaline phosphatase 56, AST 27 and ALT 19. Previously the patient has undergone endoscopic evaluation with EGD and colonoscopy in 01/2018 significant for gastritis and evidence of prior Billroth I surgery and polypectomy on colonoscopy. On questioning patient denies any history of liver disease. He denies any history of decompensated disease with no ascites, encephalopathy or GI bleeding not related to his peptic ulcer disease in the past. Patient was given 1 dose of lactulose and is currently awake alert and oriented to person and place. Review of Systems REVIEW OF SYSTEMS: CONSTITUTIONAL: Denies any fevers, chills, weight change or fatigue. CARDIOVASCULAR: Denies any chest pain, palpitations high or low blood pressures RESPIRATORY: Denies any shortness of breath, hemoptysis or cough. GENITOURINARY: No dysuria or hematuria. MUSCULOSKELETAL: No weakness reported. SKIN: Denies any new rashes or lesions, jaundice or pallor. PSYCHIATRIC: Denies any depression or anxiety. NEUROLOGY: Denies headache, denies any new focal deficits. EARS/NOSE/THROAT: No recent hearing change, congestion, nasal discharge or sore throat. EYES: No pain in eyes, discharge or change in vision. GASTROINTESTINAL: As per HPI. 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 History of Any Multi-Drug Resistant Organisms: None Reported Past Surgical History: Appendectomy, Cholecystectomy, Heart Catheterization, Pacemaker Additional Past Surgical History / Comment(s): MICHEAL CATARACTS, ULCER SX.HEMORROID SX, HAD DUAL PACEMAKER IMPLANTED (SICK SINUS SYNDROME,AV NODE DISEAE,TACHYBRADY SYNDROME.. Stomach surgery r/t ulcer Past Anesthesia/Blood Transfusion Reactions: No Reported Reaction Type of Cardiac Device: Permanent Pacemaker Device Placement Date:: 2013 Past Psychological History: No Psychological Hx Reported Smoking Status: Current every day smoker Past Alcohol Use History: Rare Past Drug Use History: None Reported - Past Family History Father Family Medical History: CVA/TIA Additional Family Medical History / Comment(s): NOT SURE IF HE HAD MINI STROKES OR HEART PROBLEM. DAD AT AGE 82 Mother Family Medical History: Diabetes Mellitus Additional Family Medical History / Comment(s): AT AGE 76 Medications and Allergies Home Medications Medication Instructions Recorded Confirmed Type Fluticasone/Salmeterol [Advair 1 puff INHALATION RT-BID 02/28/14 07/08/20 History 250-50 Diskus] Apixaban [Eliquis] 5 mg PO BID 05/20/17 07/08/20 History Fexofenadine HCl [Rupal Allergy] 180 mg PO DAILY 07/08/20 07/08/20 History Fluticasone Nasal [place] [Flonase 1 spray EA NOSTRIL BID 07/08/20 07/08/20 History Nasal [place]] Metoprolol Succinate [Toprol XL] 25 mg PO DAILY 07/08/20 07/08/20 History Allergies Allergy/AdvReac Type Severity Reaction Status Date / Time codeine Allergy Intermediate Hallucinati Verified 07/08/20 09:52 ons prednisone AdvReac agitated Verified 07/08/20 09:52 Physical Exam Vitals: Vital Signs Temp Pulse Resp BP Pulse Ox 07/09/20 04:53 98.0 F 116 H 18 178/88 93 L 07/08/20 21:00 109 H 18 07/08/20 20:49 97.5 F L 109 H 18 170/78 96 07/08/20 17:00 106 H 17 164/50 94 L 07/08/20 11:45 96 Intake and Output 07/08/20 07/09/20 07/09/20 22:59 06:59 14:59 Intake Total 1320 Balance 1320 Intake: Intake, IV Titration 1200 Amount Sodium Chloride 0.9% 1, 1200 000 ml @ 100 mls/hr IV . Q10H [facility] Rx#:[id number] Oral 120 Other: Voiding Method Diaper Diaper # Voids 1 # Bowel Movements 2 1 On physical examination, patient appears comfortable in no apparent distress. HEAD: Normocephalic, atraumatic. EYES: No scleral icterus. No conjunctival injection. MOUTH: No lesions, tongue midline. NECK: Trachea midline, no gross abnormalities. CHEST: Decreased air entry in all lung fontenot HEART: S1-S2 appreciated ABDOMEN: Soft, nontender to palpation Bowel sounds are positive. No organomegaly. No guarding or rigidity. EXTREMITIES: No pedal edema. SKIN: No rashes, no jaundice. NEUROLOGIC: Alert and oriented to person and place No focal deficits. Results CBC & Chem 7: 07/09/20 07:30 07/09/20 07:30 Labs: Abnormal Lab Results - Last 24 Hours (Table) 07/08/20 07/09/20 Range/Units 09:28 07:30 RBC 4.29 L (4.30-5.90) m/uL Hct 37.6 L (39.0-53.0) % Plt Count 106 L (150-450) k/uL Chloride 112 H (98-107) mmol/L Glucose 139 H (74-99) mg/dL Total Bilirubin 1.5 H (0.2-1.3) mg/dL Total Protein 6.1 L (6.3-8.2) g/dL Albumin 3.4 L (3.5-5.0) g/dL US - abdomen: report reviewed (No acute findings or evidence of distant liver disease on ultrasound of the abdomen.) Assessment and Plan (1) Increased ammonia level Narrative/Plan: 89-year-old male with multiple medical comorbidities presenting to the hospital for nausea, vomiting diarrhea as well as altered mental status. Ammonia found to be elevated at 78 and currently normal at less than 9. He denies any history of liver disease in the past, or decompensated liver disease. He does report heavy alcohol use in the past. Ultrasound of the abdomen was ordered in evaluation and negative for any distinct hepatic disease. Patient does have a mildly elevated liver enzymes with total bilirubin 1.5, alkaline phosphatase 56, AST 27 and ALT 19 with platelets somewhat suppressed at 106,000. Currently no evidence of asterixis patient is alert and oriented to person and place. Unclear etiology may be secondary to acute dehydration and viral infection, cannot rule out a component of underlying liver disease as the patient does report heavy alcohol use in the past although no distinct liver disease was noted on ultrasound of the abdomen. Current Visit: Yes Status: Acute Code(s): R79.89 - OTHER SPECIFIED ABNORMAL FINDINGS OF BLOOD CHEMISTRY SNOMED Code(s): 066626872 (2) Diarrhea Current Visit: Yes Status: Acute Code(s): R19.7 - DIARRHEA, UNSPECIFIED SNOMED Code(s): 12882757 (3) Altered mental status Current Visit: No Status: Acute Code(s): R41.82 - ALTERED MENTAL STATUS, UNSPECIFIED SNOMED Code(s): 960881379 (4) Gastritis Current Visit: No Status: Acute Code(s): K29.70 - GASTRITIS, UNSPECIFIED, WITHOUT BLEEDING SNOMED Code(s): 3626494 Plan: Supportive care Okay for diet Continue to monitor CBC, BMP, LFTs and ammonia Lactulose given in the emergency department and is been discontinued by the primary team, if patient has any further altered mental status or evidence of decompensated liver disease on physical exam suggests asterixis this can be readmitted Ultrasound of the abdomen ordered and reviewed Acute viral hepatitis panel ordered Stool studies ordered Continue other medical management per primary team Thank you for allowing us to participate in the care of the patient
[2020-07-09 18:46] LABS: Hepatitis A Antibody IgM Non-Reactive (Non-Reactive); Hepatitis B Core IgM Non-Reactive (Non-Reactive); Hepatitis B Surface Antigen Non-Reactive (Non-Reactive); Hepatitis C IgG Antibody Non-Reactive (Non-Reactive)
[2020-07-09] MEDS: QUEtiapine 25 MG TAB PO PRN (20:34)
[2020-07-10] MEDS: SODIUM CHLORIDE 0.9% 1,000 ML IV SCH (05:46)
[2020-07-10] MEDS: AZITHROMYCIN 500 MG TAB PO SCH (08:34)
[2020-07-10] MEDS: METOPROLOL SUCCINATE (ER) 25 MG TAB.ER.24H PO SCH (08:34)
[2020-07-10] MEDS: APIXABAN 5 MG TAB PO SCH (08:35)
[2020-07-10] MEDS: SYMBICORT 80-4.5 MCG INHALER INHALATION SCH (08:36)
[2020-07-10] MEDS ORDERED: FAMOTIDINE 20 MG TAB PO SCH (09:00)
[2020-07-10] MEDS ORDERED: POTASSIUM CHLORIDE ER 20 MEQ TAB.ER PO STA (10:12)
--- NOTE | 2020-07-10 11:03 | P.DS ---
Providers Date of admission: 07/08/20 11:45 Attending physician: Aldo Iqbal Consults: 07/08/20 11:51 Consult Physician Routine Consulting Provider: Lynda Olsen Consult Reason/Comments: Elevated ammonia level Do you want consulting provider notified?: Yes Primary care physician: Francie [facility] Hospital Course: 89-year-old male was brought in because of nausea vomiting diarrhea. I'm unable to get any kind of history from the patient is patient is drowsy arousable but unable to provide any history because of his a day excessive drowsiness from Ativan he received from ER. Patient was quite a bit agitated in ER. I'm unable to reach any family at this time given the physical exam is limited. Patient doesn't have any fever doesn't have any leukocytosis chest x-ray showing infiltrate in the right upper lobe and left lower lobe because of which patient is admitted with the diagnosis of pneumonia and patient was started on Rocephin and azithromycin patient also has mildly elevated ammonia level doesn't have any peripheral signs of cirrhosis and moderate INR. Patient doesn't appear to have any history of cirrhosis in the past either. Patient was given lactulose. 07/09/2020 Patient is more agitated today disease did receive furosemide for Haldol. Patient has decreased his briskly secondary to hospitalization related delirium. Patient confusion on admission admission is probably secondary to sepsis. Continue with present antibiotics. Ammonia level has gone down to 9 patient had multiple bowel movements lactulose will be discontinued there is no evidence of cirrhosis at this time. 07/10/2020 Patient is clinically doing well did not require any Haldol. The patient will be evaluated by physical therapy and occupational therapy depending on the reevaluation if needed that to go to subacute rehab patient will be discharged to subacute repair or else patient will be discharged home. Patient is otherwise clinically doing well. She had multiple bowel movements secondary to lactulose he received patient is probably constipated for about patient is alert oriented times close to 2-3. Is not clear whether patient had pneumonia patient will be discharged on 5 days of antibiotics as I cannot completely rule out come in today quite pneumonia. Patient will be discharged on MiraLAX on as-needed basis for constipation. Patient's C. diff is negative PHYSICAL EXAMINATION: GENERAL: patient is sleepy did receive Haldol but easily arousable but gets agitated if he wakes up. HEENT: Pupils are round and equally reacting to light. EOMI. No scleral icterus. No conjunctival pallor. Normocephalic, atraumatic. No pharyngeal erythema. No thyromegaly. CARDIOVASCULAR: S1 and S2 present. No murmurs, rubs, or gallops. PULMONARY: Chest is clear to auscultation, no wheezing or crackles. ABDOMEN: Soft, nontender, nondistended, normoactive bowel sounds. No palpable organomegaly. MUSCULOSKELETAL: No joint swelling or deformity. EXTREMITIES: No cyanosis, clubbing, or pedal edema. NEUROLOGICAL: moving all 4 limbs SKIN: No rashes. Assessment and Plan Plan: -possibly of pneumonia not be ruled out patient may have come in today quite pneumonia patient will be discharged on for more days of Ceftin completing 7 day of therapy -Agitation: Several secondary to metabolic or toxic encephalopathy which improved presently patient is confused may be constipated that may have contributed to his delirium as well is not requiring any antipsychotics at this time -COPD without any acute exacerbation -Hypertension -Atrial fibrillation presently rate controlled continue his metoprolol and Eliquis Generalized deconditioning physical therapy and occupational therapy evaluation still pending depending on their evaluation, decide on his placement either home, with home care to subacute rehab -elevated ammonia level etiology is not clear. no evidence of cirrhosis patient had multiple bowel movements and ammonia came down. Patient Condition at Discharge: Fair Plan - Discharge Summary New Discharge Prescriptions: New Cefuroxime Axetil [Ceftin] 500 mg PO BID 4 Days #8 tab Continue Fluticasone/Salmeterol [Advair 250-50 Diskus] 1 puff INHALATION RT-BID Apixaban [Eliquis] 5 mg PO BID Metoprolol Succinate [Toprol XL] 25 mg PO DAILY Fexofenadine HCl [Rupal Allergy] 180 mg PO DAILY Fluticasone Nasal [place] [Flonase Nasal [place]] 1 spray EA NOSTRIL BID Discharge Medication List Fluticasone/Salmeterol [Advair 250-50 Diskus] 1 puff INHALATION RT-BID 02/28/14 [History] Apixaban [Eliquis] 5 mg PO BID 05/20/17 [History] Fexofenadine HCl [Rupal Allergy] 180 mg PO DAILY 07/08/20 [History] Fluticasone Nasal [place] [Flonase Nasal [place]] 1 spray EA NOSTRIL BID 07/08/20 [History] Metoprolol Succinate [Toprol XL] 25 mg PO DAILY 07/08/20 [History] Cefuroxime Axetil [Ceftin] 500 mg PO BID 4 Days #8 tab 07/10/20 [Rx] Follow up Appointment(s)/Referral(s): Francie Quiñones DO [Primary Care Provider] - 3 Days
[2020-07-10 11:19] VITALS: BP 154/74; PULSE 82; RESP 20; TEMP 97.7
[2020-07-10] MEDS ORDERED: ONDANSETRON 4 MG/2 ML VIAL IVP STA (11:31)
[2020-07-10 11:52] LABS: ALT 30 U/L (4-49); AST 72 U/L (17-59); African American GFR (CKD) 51 (>60 ml/min/1.73 sqM); Albumin 3.5 g/dL (3.5-5.0); Albumin/Globulin Ratio 1.3; Alkaline Phosphatase 55 U/L (38-126); Anion Gap 7 mmol/L; Blood Urea Nitrogen 22 mg/dL (9-20); Calcium 9.1 mg/dL (8.4-10.2); Carbon Dioxide 25 mmol/L (22-30); Chloride 109 mmol/L (98-107); Globulin 2.8 g/dL; Glucose 92 mg/dL (74-99); Non-African American GFR(CKD) 44 (>60 ml/min/1.73 sqM); Potassium 3.3 mmol/L (3.5-5.1); Sodium 141 mmol/L (137-145); Total Bilirubin 2.3 mg/dL (0.2-1.3); Total Protein 6.3 g/dL (6.3-8.2)
--- NOTE | 2020-07-10 14:43 | P.PN ---
Subjective Progress Note Date: 07/10/20 (late entry, patient evaluated at 1040) Principal diagnosis: Elevated ammonia A patient is an 89-year-old white male with multiple medical comorbidities that includes a remote history of peptic ulcer disease status post [place] I surgery in the past who presented for nausea vomiting and diarrhea. Today he is seen and evaluated sitting up in the bedside chair. He denies any nausea, vomiting, or abdominal pain. He is still having some loose stool, states only had one bowel movement today. His repeat ammonia level yesterday was less than 9. He has had no acute changes through the night, denies any fever or chills. He is alert and oriented 3, answers questions appropriately and follows commands appropriately. Objective - Vital Signs Vital signs: Vital Signs Temp 97.7 F 07/10/20 11:00 Pulse 82 07/10/20 11:00 Resp 20 07/10/20 11:00 BP 154/74 07/10/20 11:00 Pulse Ox 94 L 07/10/20 11:00 Intake & Output 07/09/20 07/10/20 07/10/20 18:59 06:59 18:59 Intake Total 1000 600 Balance 1000 600 Weight 58.967 kg Intake: Intake, IV Titration 1000 600 Amount Sodium Chloride 0.9% 1, 1000 600 000 ml @ 100 mls/hr IV . Q10H [facility] Rx#:[id number] Other: Voiding Method Diaper Diaper Diaper # Bowel Movements 1 0 - Exam General appearance: The patient is alert, oriented, in no acute distress. HET: Head is normocephalic and atraumatic. Conjunctiva pink. Sclera anicteric. Neck: Supple without lymphadenopathy. Abdomen: Soft, nontender, nondistended with bowel sounds. No guarding or rigidity. Extremities: Normal skin color and turgor. No pedal edema Neurological: No focal deficits. Alert and oriented 3. - Labs CBC & Chem 7: 07/09/20 07:30 07/10/20 11:16 Labs: Abnormal Lab Results - Last 24 Hours (Table) 07/09/20 07/10/20 Range/Units 19:27 11:16 Potassium 3.3 L (3.5-5.1) mmol/L Chloride 109 H (98-107) mmol/L BUN 22 H (9-20) mg/dL Creatinine 1.43 H (0.66-1.25) mg/dL Total Bilirubin 2.3 H (0.2-1.3) mg/dL AST 72 H (17-59) U/L Stool Lactoferrin POSITIVE A (NEGATIVE) Microbiology - Last 24 Hours (Table) 07/08/20 11:39 Blood Culture - Preliminary Blood No Growth after 48 hours 07/08/20 11:18 Blood Culture - Preliminary Blood No Growth after 48 hours 07/09/20 19:27 Stool Culture - Preliminary Stool Assessment and Plan (1) Increased ammonia level Narrative/Plan: 89-year-old male with multiple medical comorbidities presenting to the hospital for nausea, vomiting diarrhea as well as altered mental status. Ammonia found to be elevated at 78 and currently normal at less than 9. He denies any history of liver disease in the past, or decompensated liver disease. He does report heavy alcohol use in the past. Ultrasound of the abdomen was ordered in evaluation and negative for any distinct hepatic disease. Patient does have a mildly elevated liver enzymes with total bilirubin 1.5, alkaline phosphatase 56, AST 27 and ALT 19 with platelets somewhat suppressed at 106,000. Currently no evidence of asterixis patient is alert and oriented to person and place. Unclear etiology may be secondary to acute dehydration and viral infection, cannot rule out a component of underlying liver disease as the patient does report heavy alcohol use in the past although no distinct liver disease was noted on ultrasound of the abdomen. Status: Acute Code(s): R79.89 - OTHER SPECIFIED ABNORMAL FINDINGS OF BLOOD CHEMISTRY SNOMED Code(s): 721448207 (2) Diarrhea Status: Acute Code(s): R19.7 - DIARRHEA, UNSPECIFIED SNOMED Code(s): 93799131 (3) Altered mental status Status: Acute Code(s): R41.82 - ALTERED MENTAL STATUS, UNSPECIFIED SNOMED Code(s): 779201476 Plan: Supportive care Okay for diet Continue to monitor CBC, BMP, LFTs Lactulose given in the emergency department and is been discontinued by the primary team, if patient has any further altered mental status or evidence of decompensated liver disease on physical exam suggests asterixis this can be readmitted Ultrasound of the abdomen ordered and reviewed Acute viral hepatitis panel ordered and reviewed, negative Stool studies ordered Continue other medical management per primary team Thank you for allowing us to participate in the care of the patient Dr. K Tumma I agree with the dictator's note, documented as a scribe by Prudence Morse.
--- NOTE | 2020-07-17 05:38 | CDI ---
Documentation Clarification Form Date: 07/17/20 From: Jackie Leger Phone: If you have a question about this query, please contact Maggie Gill, Keyboard Instrument Repairer at [phone] between 8am and 5pm. Admit Date: 07/08/2020 11:45:00 AM Patient Name: Michael Crane Visit Number: [id number] Discharge Date: 07/10/2020 02:00:00 PM ATTENTION: The Clinical Documentation Specialists (CDI) and [facility] Coding Staff appreciate your assistance in clarifying documentation. Please respond to the clarification below the line at the bottom and electronically sign. The CDI & [facility] Coding staff will review the response and follow-up if needed. Please note: Queries are made part of the Legal Health Record. If you have any questions, please contact the author of this message via ITS. Dr. Murali Srinivasan, Your patient has a documented diagnosis of sepsis - which may lack sufficient clinical evidence/support. History/Risk Factors: A fib, COPD, HTN, s/p pacemaker, Clinical Indicators: Presents with nausea, vomiting and diarrhea. The patient has no fever, doesn't have any leukocytosis. CXR showing infiltrate in the right upper lobe and left lower lob because of which patient is admitted with the diagnosis of pneumonia. Treatment: IV Rocephin, IV Azithromycin, IV fluids, Based on the clinical evidence and your professional judgment, do you feel sepsis is a valid diagnosis? Yes, sepsis present/active during this admission as evidence by (additional clinical support): No, sepsis was ruled out. Other (please specify diagnosis) Unable to determine My impression was already dictated admit note MTDD
== END 2020-07-10 14:00 | disposition home health service (06) | DRG 193 ==
LOC: EC 07:55 → 6NMEDSUR 11:45
PROVIDERS: ADMIT Internal Medicine; ATTEND Internal Medicine
DX: J18.9 Pneumonia, unspecified organism (principal); G92 Toxic encephalopathy; I48.20 Chronic atrial fibrillation, unspecified; J44.0 Chronic obstructive pulmonary disease with (acute) lower respiratory infection; I49.5 Sick sinus syndrome; F03.90 Unspecified dementia, unspecified severity, without behavioral disturbance, psychotic disturbance, mood disturbance, and anxiety; Z20.828 Contact with and (suspected) exposure to other viral communicable diseases; I10 Essential (primary) hypertension; K59.00 Constipation, unspecified; K76.9 Liver disease, unspecified; E86.0 Dehydration; R19.7 Diarrhea, unspecified; F17.200 Nicotine dependence, unspecified, uncomplicated; Z71.6 Tobacco abuse counseling; Z79.01 Long term (current) use of anticoagulants; Z79.51 Long term (current) use of inhaled steroids; Z79.899 Other long term (current) drug therapy; Z95.0 Presence of cardiac pacemaker; Z85.828 Personal history of other malignant neoplasm of skin; Z87.11 Personal history of peptic ulcer disease; Z87.440 Personal history of urinary (tract) infections; Z90.49 Acquired absence of other specified parts of digestive tract; Z87.19 Personal history of other diseases of the digestive system; Z98.42 Cataract extraction status, left eye; Z98.41 Cataract extraction status, right eye; Z98.890 Other specified postprocedural states; Z88.5 Allergy status to narcotic agent; Z88.8 Allergy status to other drugs, medicaments and biological substances; Z83.3 Family history of diabetes mellitus; Z82.3 Family history of stroke
CPT/HCPCS: 36415; 70450; 71045; 71046; 76705; 80053; 80074; 81001; 82140; 82550; 83630; 83690; 83735; 83880; 85025; 85027; 85610; 87040; 87045; 87046; 87324; 87328; 87329; 87635; 93005; 94640; 96361; 96365; 96375; 99291

== ENCOUNTER 2020-07-19 17:07 | Emergency (ER) | payer MEDICARE ==
[2020-07-19 17:20] VITALS: RESP 18
--- NOTE | 2020-07-19 18:32 | ED ---
Recheck HPI - General Chief Complaint: Recheck/Abnormal Lab/Rx Stated Complaint: Revisit - trouble urinating Time Seen by Provider: 07/19/20 17:44 Source: patient, family Mode of arrival: wheelchair Limitations: no limitations - History of Present Illness Initial Comments: Patient is an 89-year-old male with history of A. fib, recent pneumonia, presenting to the emergency department with complaints of retaining urine. Patient states he has not been able to void since last night. He is having some lower abdominal discomfort. Patient was recently started on antibiotics for possible UTI, and has 1 tablet left. Patient is also complaining of some mild constipation since he left the hospital. He has been taking MiraLAX daily, he has had bowel movements daily except for today. He did have a small movement yesterday. He denies any nausea or vomiting, no chest pain. Denies any recent fever or chills. He has no further complaints at this time. Upon arrival to the ER, his vital signs are stable. - Related Data Home Medications Medication Instructions Recorded Confirmed Fluticasone/Salmeterol [Advair 1 puff INHALATION RT-BID 02/28/14 07/08/20 250-50 Diskus] Apixaban [Eliquis] 5 mg PO BID 05/20/17 07/08/20 Fexofenadine HCl [Rupal Allergy] 180 mg PO DAILY 07/08/20 07/08/20 Fluticasone Nasal [place] [Flonase 1 spray EA NOSTRIL BID 07/08/20 07/08/20 Nasal [place]] Metoprolol Succinate [Toprol XL] 25 mg PO DAILY 07/08/20 07/08/20 Previous Rx's Medication Instructions Recorded Cefuroxime Axetil [Ceftin] 500 mg PO BID 4 Days #8 tab 07/10/20 polyethylene glycoL 3350 [Miralax] 17 gm PO DAILY PRN #15 packet 07/10/20 Allergies Allergy/AdvReac Type Severity Reaction Status Date / Time codeine Allergy Intermediate Hallucinati Verified 07/19/20 17:20 ons prednisone AdvReac agitated Verified 07/19/20 17:20 Review of Systems ROS Statement: Those systems with pertinent positive or pertinent negative responses have been documented in the HPI. ROS Other: All systems not noted in ROS Statement are negative. 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 History of Any Multi-Drug Resistant Organisms: None Reported Past Surgical History: Appendectomy, Cholecystectomy, Heart Catheterization, Pacemaker Additional Past Surgical History / Comment(s): MICHEAL CATARACTS, ULCER SX.HEMORROID SX, HAD DUAL PACEMAKER IMPLANTED (SICK SINUS SYNDROME,AV NODE DISEAE,TACHYBRADY SYNDROME.. Stomach surgery r/t ulcer Past Anesthesia/Blood Transfusion Reactions: No Reported Reaction Type of Cardiac Device: Permanent Pacemaker Device Placement Date:: 2013 Past Psychological History: No Psychological Hx Reported Smoking Status: Current every day smoker Past Alcohol Use History: Rare Past Drug Use History: None Reported - Past Family History Father Family Medical History: CVA/TIA Additional Family Medical History / Comment(s): NOT SURE IF HE HAD MINI STROKES OR HEART PROBLEM. DAD AT AGE 82 Mother Family Medical History: Diabetes Mellitus Additional Family Medical History / Comment(s): AT AGE 76 General Exam - General Exam Comments Initial Comments: GENERAL: Patient is well-developed and well-nourished. Patient is nontoxic and in no acute distress. HEAD: Atraumatic, normocephalic. EYES: Pupils equal round and reactive to light, extraocular movements intact, sclera anicteric, conjunctiva are normal. Eyelids were unremarkable. ENT: TMs normal, nares patent, oropharynx clear without exudates. Moist mucous membranes. NECK: Normal range of motion, supple without lymphadenopathy or JVD. LUNGS: Unlabored respirations. Breath sounds clear to auscultation bilaterally and equal. No wheezes rales or rhonchi. HEART: Regular rate and rhythm without murmurs, rubs or gallops. ABDOMEN: Suprapubic discomfort with palpation, no other areas of pain. Soft, nor moactive bowel sounds. No guarding, no rebound. No masses appreciated. : Deferred MUSCULOSKELETAL: Normal extremities with adequate strength and normal range of motion, no pitting or edema. No clubbing or cyanosis. NEUROLOGICAL: Patient is alert and oriented x 3. Motor and sensory are also intact. Cranial nerves II through XII grossly intact. Symmetrical smile. Normal speech, normal gait. PSYCH: Normal mood, normal affect. SKIN: Warm, Dry, normal turgor, no rashes or lesions noted. Limitations: no limitations Course Vital Signs 07/19/20 07/19/20 17:16 20:10 Temperature 98.5 F 100.2 F H Pulse Rate 85 89 Respiratory 18 18 Rate Blood Pressure 173/80 148/86 O2 Sat by Pulse 93 L 94 L Oximetry Medical Decision Making - Medical Decision Making Patient is a 89-year-old male presenting for urinary retention 2 days. He is having some suprapubic discomfort with palpation, bladder scan revealed over 600 of fluid. Labs show normal white count, normal hemoglobin, kidney function is stable. Urine shows no evidence of infection, there is a small amount of blood however he states that has been there for a while. We also started a urinary catheter before the urine sample was obtained. We were able to drain about 2 L of urine from his bladder, he reports significant improvement in his symptoms. KUB x-ray shows no acute process. I discussed with patient that I do recommend leaving the [place] catheter in place until follow-up with urology. Patient is in agreement with this plan of care. He is stable for discharge. Return parameters were discussed with the patient he verbalizes understanding. Case discussed with Dr. Arguelles. - Lab Data Result diagrams: 07/19/20 18:55 07/19/20 18:55 Lab Results 07/19/20 07/19/20 07/19/20 Range/Units 18:55 18:55 18:55 WBC 8.7 (3.8-10.6) k/uL RBC 4.42 (4.30-5.90) m/uL Hgb 12.9 L (13.0-17.5) gm/dL Hct 38.4 L (39.0-53.0) % MCV 86.8 (80.0-100.0) fL MCH 29.2 (25.0-35.0) pg MCHC 33.7 (31.0-37.0) g/dL RDW 13.4 (11.5-15.5) % Plt Count 165 D (150-450) k/uL MPV 7.3 Neutrophils % 83 % Lymphocytes % 8 % Monocytes % 6 % Eosinophils % 2 % Basophils % 0 % Neutrophils # 7.2 (1.3-7.7) k/uL Lymphocytes # 0.7 L (1.0-4.8) k/uL Monocytes # 0.5 (0-1.0) k/uL Eosinophils # 0.2 (0-0.7) k/uL Basophils # 0.0 (0-0.2) k/uL Sodium 134 L (137-145) mmol/L Potassium 4.2 (3.5-5.1) mmol/L Chloride 100 (98-107) mmol/L Carbon Dioxide 29 (22-30) mmol/L Anion Gap 5 mmol/L BUN 16 (9-20) mg/dL Creatinine 1.00 (0.66-1.25) mg/dL Est GFR (CKD-EPI)AfAm 77 (>60 ml/min/1.73 sqM) Est GFR (CKD-EPI)NonAf 67 (>60 ml/min/1.73 sqM) Glucose 134 H (74-99) mg/dL Calcium 8.8 (8.4-10.2) mg/dL Total Bilirubin 1.4 H (0.2-1.3) mg/dL AST 36 (17-59) U/L ALT 24 (4-49) U/L Alkaline Phosphatase 59 (38-126) U/L Total Protein 6.2 L (6.3-8.2) g/dL Albumin 3.3 L (3.5-5.0) g/dL Urine Color Light Yellow Urine Appearance Clear (Clear) Urine pH 7.5 (5.0-8.0) Ur Specific [place] 1.006 (1.001-1.035) Urine Protein Negative (Negative) Urine Glucose (UA) Negative (Negative) Urine Ketones Negative (Negative) Urine Blood Small H (Negative) Urine Nitrite Negative (Negative) Urine Bilirubin Negative (Negative) Urine Urobilinogen <2.0 (<2.0) mg/dL Ur Leukocyte Esterase Negative (Negative) Urine RBC 37 H (0-5) /hpf Urine WBC 1 (0-5) /hpf Amorphous Sediment Rare H (None) /hpf Disposition Clinical Impression: Urine retention, Constipation Disposition: HOME SELF-CARE Condition: Stable Instructions (If sedation given, give patient instructions): Urinary Retention in Men (ED) Additional Instructions: Please return to the Emergency Department if symptoms worsen or any other concerns. Please follow up with urology as discussed. Is patient prescribed a controlled substance at d/c from ED?: No Referrals: Francie Quiñones DO [Primary Care Provider] - 1-2 days Juvencio Welch MD [STAFF PHYSICIAN] - 1-2 days
[2020-07-19 19:05] LABS: Basophils % (A) 0 %; Eosinophils # (A) 0.2 k/uL (0-0.7); Eosinophils % (A) 2 %; HCT 38.4 % (39.0-53.0); HGB 12.9 gm/dL (13.0-17.5); Lymphocytes # (A) 0.7 k/uL (1.0-4.8); Lymphocytes % (A) 8 %; MCH 29.2 pg (25.0-35.0); MCHC 33.7 g/dL (31.0-37.0); MCV 86.8 fL (80.0-100.0); Mean Platelet Volume 7.3; Monocytes # (A) 0.5 k/uL (0-1.0); Monocytes % (A) 6 %; Neutrophils # (A) 7.2 k/uL (1.3-7.7); Neutrophils % (A) 83 %; RBC 4.42 m/uL (4.30-5.90); RDW 13.4 % (11.5-15.5); WBC 8.7 k/uL (3.8-10.6)
[2020-07-19 19:08] LABS: Platelet Count 165 k/uL (150-450)
[2020-07-19 19:10] LABS: Amorphous Sediment,Urine Rare /hpf; Appearance,Urine Clear (Clear); Bilirubin,Urine Negative (Negative); Blood,Urine Small (Negative); Color,Urine Light Yellow; Glucose,Urine (UA) Negative (Negative); Ketones,Urine Negative (Negative); Leukocyte Esterase,Urine Negative (Negative); Nitrite,Urine Negative (Negative); PH, Urine 7.5 (5.0-8.0); Protein,Urine Negative (Negative); RBC,Urine 37 /hpf (0-5); Specific Gravity,Urine 1.006 (1.001-1.035); Urobilinogen,Urine <2.0 mg/dL (<2.0); WBC,Urine 1 /hpf (0-5)
[2020-07-19 19:13] LABS: Albumin 3.3 g/dL (3.5-5.0); Calcium 8.8 mg/dL (8.4-10.2); Potassium 4.2 mmol/L (3.5-5.1); Total Bilirubin 1.4 mg/dL (0.2-1.3); Total Protein 6.2 g/dL (6.3-8.2)
--- NOTE | 2020-07-19 19:17 | XR ---
EXAMINATION TYPE: XR KUB DATE OF EXAM: 07/19/2020 COMPARISON: 02/09/2018 HISTORY: Abdominal pain. Constipation. TECHNIQUE: Single view FINDINGS: There is no sign of intestinal obstruction or pneumoperitoneum. Fecal pattern is fairly nor mal. There is vertebroplasty of L1. Lung bases are clear of consolidation. IMPRESSION: Nonacute abdomen. There is decrease in the fecal material compared to old exam.
[2020-07-19 20:26] VITALS: BP 148/86; PULSE 89; TEMP 100.2
== END 2020-07-19 20:10 | disposition home or self-care (01) ==
LOC: EC 17:07
DX: R33.9 Retention of urine, unspecified (principal); K59.00 Constipation, unspecified; J44.9 Chronic obstructive pulmonary disease, unspecified; I10 Essential (primary) hypertension; I48.20 Chronic atrial fibrillation, unspecified; Z79.51 Long term (current) use of inhaled steroids; Z79.899 Other long term (current) drug therapy; F17.200 Nicotine dependence, unspecified, uncomplicated; Z88.5 Allergy status to narcotic agent; Z88.8 Allergy status to other drugs, medicaments and biological substances; Z85.828 Personal history of other malignant neoplasm of skin; Z98.890 Other specified postprocedural states; Z95.5 Presence of coronary angioplasty implant and graft; Z95.0 Presence of cardiac pacemaker
CPT/HCPCS: 36415; 51702; 74018; 80053; 81001; 85025; 99284

== ENCOUNTER 2020-07-24 21:01 | Emergency (ER) | payer MEDICARE ==
[2020-07-24 21:10] VITALS: BP 126/72; PULSE 79; RESP 18; TEMP 98.6
--- NOTE | 2020-07-24 21:47 | ED ---
General Adult HPI - General Chief complaint: Urogenital Stated complaint: Can't urinate Time Seen by Provider: 07/24/20 21:32 Source: patient, family, RN notes reviewed Mode of arrival: wheelchair Limitations: no limitations - History of Present Illness Initial comments: Patient is a pleasant 89-year-old male presenting to the emergency department for urinary retention. Patient did have [place] catheter removed this morning. Patient was told to come to the ER diffuse unable to urinate. Patient has been unable to urinate since this morning. Patient is starting to have some fullness in the suprapubic region. No fever. - Related Data Home Medications Medication Instructions Recorded Confirmed Fluticasone/Salmeterol [Advair 1 puff INHALATION RT-BID 02/28/14 07/08/20 250-50 Diskus] Apixaban [Eliquis] 5 mg PO BID 05/20/17 07/08/20 Fexofenadine HCl [Rupal Allergy] 180 mg PO DAILY 07/08/20 07/08/20 Fluticasone Nasal [place] [Flonase 1 spray EA NOSTRIL BID 07/08/20 07/08/20 Nasal [place]] Metoprolol Succinate [Toprol XL] 25 mg PO DAILY 07/08/20 07/08/20 Previous Rx's Medication Instructions Recorded Cefuroxime Axetil [Ceftin] 500 mg PO BID 4 Days #8 tab 07/10/20 polyethylene glycoL 3350 [Miralax] 17 gm PO DAILY PRN #15 packet 07/10/20 Allergies Allergy/AdvReac Type Severity Reaction Status Date / Time codeine Allergy Intermediate Hallucinati Verified 07/24/20 21:10 ons prednisone AdvReac agitated Verified 07/24/20 21:10 Review of Systems ROS Statement: Those systems with pertinent positive or pertinent negative responses have been documented in the HPI. ROS Other: All systems not noted in ROS Statement are negative. Constitutional: Denies: fever Eyes: Denies: eye pain ENT: Denies: ear pain Respiratory: Denies: cough Cardiovascular: Denies: chest pain Endocrine: Denies: fatigue Gastrointestinal: Denies: abdominal pain Genitourinary: Reports: as per HPI. 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 History of Any Multi-Drug Resistant Organisms: None Reported Past Surgical History: Appendectomy, Cholecystectomy, Heart Catheterization, Pacemaker Additional Past Surgical History / Comment(s): MICHEAL CATARACTS, ULCER SX.HEMORROID SX, HAD DUAL PACEMAKER IMPLANTED (SICK SINUS SYNDROME,AV NODE DISEAE,TACHYBRADY SYNDROME.. Stomach surgery r/t ulcer Past Anesthesia/Blood Transfusion Reactions: No Reported Reaction Type of Cardiac Device: Permanent Pacemaker Device Placement Date:: 2013 Past Psychological History: No Psychological Hx Reported Smoking Status: Former smoker Past Alcohol Use History: Rare Past Drug Use History: None Reported - Past Family History Father Family Medical History: CVA/TIA Additional Family Medical History / Comment(s): NOT SURE IF HE HAD MINI STROKES OR HEART PROBLEM. DAD AT AGE 82 Mother Family Medical History: Diabetes Mellitus Additional Family Medical History / Comment(s): AT AGE 76 General Exam Limitations: no limitations General appearance: alert, in no apparent distress Head exam: Present: normocephalic Eye exam: Present: normal appearance Neck exam: Present: normal inspection Respiratory exam: Present: normal lung sounds bilaterally Cardiovascular Exam: Present: regular rate, normal rhythm GI/Abdominal exam: Present: soft. Absent: tenderness exam: Present: normal inspection Neurological exam: Present: alert Psychiatric exam: Present: normal affect, normal mood Skin exam: Present: normal color Course Vital Signs 07/24/20 21:04 Temperature 98.6 F Pulse Rate 79 Respiratory 18 Rate Blood Pressure 126/72 O2 Sat by Pulse 93 L Oximetry Medical Decision Making - Medical Decision Making Patient is symptom-free and does have an appointment with urology tomorrow Disposition Clinical Impression: Urinary retention Disposition: HOME SELF-CARE Condition: Stable Instructions (If sedation given, give patient instructions): Urinary Retention in Men (ED) Additional Instructions: Please follow-up tomorrow with urology as planned. Return for pain, fever, worsening symptoms or other concerns. Is patient prescribed a controlled substance at d/c from ED?: No Referrals: Francie Quiñones DO [Primary Care Provider] - 1-2 days Juvencio Welch MD [STAFF PHYSICIAN] - 1-2 days Time of Disposition: 22:15
== END 2020-07-24 22:26 | disposition home or self-care (01) ==
LOC: EC 21:01
DX: R33.9 Retention of urine, unspecified (principal); J44.9 Chronic obstructive pulmonary disease, unspecified; I48.91 Unspecified atrial fibrillation; I10 Essential (primary) hypertension; Z79.01 Long term (current) use of anticoagulants; Z79.51 Long term (current) use of inhaled steroids; Z79.899 Other long term (current) drug therapy; Z88.5 Allergy status to narcotic agent; Z88.8 Allergy status to other drugs, medicaments and biological substances; Z87.891 Personal history of nicotine dependence; Z98.42 Cataract extraction status, left eye; Z98.41 Cataract extraction status, right eye; Z85.828 Personal history of other malignant neoplasm of skin; Z95.5 Presence of coronary angioplasty implant and graft; Z90.49 Acquired absence of other specified parts of digestive tract; Z95.0 Presence of cardiac pacemaker
CPT/HCPCS: 51798; 99284

== ENCOUNTER 2020-08-30 06:19 | Day surgery (SDC) | payer MEDICARE ==
[2020-08-25 16:13] VITALS: BMI 21.2
--- NOTE | 2020-08-29 19:11 | P.GSHP ---
History of Present Illness H&P Date: 08/29/20 89 yo male with a history of mild bph symptom who went into urine retention after a pneumonia. Despite alpha blockers, time and several voiding trials he remains in retention. He comes for a bipolar turp the risks and alternatives have been discussed. He is at higher risk due to cardiac issues but he prefers to proceed with the turp in order to get rid of the catheter. - Constitutional Constitutional: Reports weakness - Respiratory Respiratory: Reports dyspnea - Genitourinary (Female) Genitourinary: Reports as per HPI Past Medical History Past Medical History: Atrial Fibrillation, Cancer, COPD, CVA/TIA, GERD/Reflux, Pneumonia Additional Past Medical History / Comment(s): Pacemaker, hx basal cell carcinoma of the skin, hx encephalopathy, hx peptic ulcer disease/gastric ulcer repaired surgically. Low BP. 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 Hx Bacterial Pneumonia 07/09. Current Prostate problems and urine retention related to medication used to treat Bacterial Pneumonia. History of Any Multi-Drug Resistant Organisms: None Reported Past Surgical History: Appendectomy, Cholecystectomy, Heart Catheterization, Pacemaker Additional Past Surgical History / Comment(s): BILATERAL CATARACTS REMOVED, ULCER SURGERY, HEMORRHOID SURGERY, DUAL PACEMAKER IMPLANTED, stomach surgery r/t ulcer. Past Anesthesia/Blood Transfusion Reactions: No Reported Reaction Type of Cardiac Device: Permanent Pacemaker Device Placement Date:: 2013 Past Psychological History: No Psychological Hx Reported Smoking Status: Former smoker Past Alcohol Use History: Rare Additional Past Alcohol Use History / Comment(s): STARTED SMOKING AT AGE 22, SMOKED 1 PPD. HAD QUIT ONCE FOR 1O YEARS THEN RESTARTED AFTER OF SON, QUIT IN 1999. Past Drug Use History: None Reported - Past Family History Father Family Medical History: CVA/TIA Additional Family Medical History / Comment(s): NOT SURE IF HE HAD MINI STROKES OR HEART PROBLEM. DAD AT AGE 82. Mother Family Medical History: Diabetes Mellitus Additional Family Medical History / Comment(s): AT AGE 76. Medications and Allergies Home Medications Medication Instructions Recorded Confirmed Type Fluticasone/Salmeterol [Advair 1 puff INHALATION RT-BID 02/28/14 08/25/20 History 250-50 Diskus] Apixaban [Eliquis] 5 mg PO BID 05/20/17 08/25/20 History Fluticasone Nasal [place] [Flonase 1 spray EA NOSTRIL BID 07/08/20 08/25/20 History Nasal [place]] Metoprolol Succinate [Toprol XL] 25 mg PO HS 07/08/20 08/25/20 History polyethylene glycoL 3350 [Miralax] 17 gm PO DAILY PRN #15 packet 07/10/20 08/25/20 Rx L.acidoph,Paracasei, B.lactis 1 each PO DAILY 08/25/20 08/25/20 History [Probiotic] Allergies Allergy/AdvReac Type Severity Reaction Status Date / Time codeine Allergy Intermediate Hallucinati Verified 08/25/20 15:47 ons prednisone AdvReac agitated Verified 08/25/20 15:47 Surgical - Exam - General well developed, well nourished, no distress - Eyes PERRL - ENT no hearing loss - Neck trachea midline - Respiratory normal expansion, normal respiratory effort - Cardiovascular Rhythm: regular - Abdomen Abdomen: soft, non tender - Genitourinary indwelling catheter 30-40 gm prostate - Rectum Rectum: no tenderness - Integumentary no rash, no growths - Neurologic normal coordination, normal sensation - Musculoskeletal normal posture - Psychiatric oriented to time, oriented to person, oriented to place, speech is normal, m nabil intact Assessment and Plan Assessment: Impression: 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
[~2020-08-30 06:19] MED LIST: AMPICILLIN 1,000 MG in SODIUM CHLORIDE 0.9% 50 ML IVPB PRN; DEXAMETHASONE SOD PHOSPHATE 4 MG/ML 1 ML VIAL IV ONE; GENTAMICIN 100 MG in SODIUM CHLORIDE 0.9% 100 ML IVPB PRN; LIDOCAINE 1% (10MG/ML) FOR IV START INTRADERMA PRN; MIDAZOLAM 2 MG/2 ML VIAL IV PRN
[2020-08-30] MEDS ORDERED: HYDROmorphone 0.5 MG/0.5 ML SYRINGE IVP PRN (07:00)
[2020-08-30] MEDS: LACTATED RINGERS 1,000 ML IV SCH ×3 (07:18→21:10)
[2020-08-30] MEDS ORDERED: ONDANSETRON 4 MG/2 ML VIAL ONE (07:19)
[2020-08-30] MEDS ORDERED: ONDANSETRON 4 MG/2 ML VIAL IVP ONE (07:21)
[2020-08-30] MEDS ORDERED: MIDAZOLAM 2 MG/2 ML VIAL ONE (07:30)
[2020-08-30] MEDS ORDERED: ePHEDrine SULFATE/0.9% NACL/PF 50 MG/5 ML SYRINGE IV ONE (07:30)
[2020-08-30] MEDS ORDERED: PROPOFOL 10 MG/ML 20 ML VIAL IV ONE (07:30)
[2020-08-30] MEDS ORDERED: LIDOCAINE 1% INJ 10MG/ML (20 ML MDV) ONE (07:30)
[2020-08-30] MEDS ORDERED: SUCCINYLCHOLINE CHLORIDE 100 MG/5 ML SYR IV ONE (07:30)
[2020-08-30] MEDS ORDERED: fentaNYL (PF) 50 MCG/ML 2 ML AMP ONE (07:30)
[2020-08-30] MEDS ORDERED: ACETAMINOPHEN TAB 325 MG TAB PO PRN (08:54)
[2020-08-30] MEDS ORDERED: MAG HYDROX/AL HYDROX/SIMETH 30 ML CUP PO PRN (08:54)
[2020-08-30] MEDS ORDERED: BELLADONNA-OPIUM 16.2-60 MG 1 EACH SUPP RECTAL PRN (08:54)
[2020-08-30] MEDS ORDERED: polyethylene glycoL 3350 17 GM POWD.PACK PO PRN (08:54)
--- NOTE | 2020-08-30 08:59 | P.OP ---
Date of Procedure: 08/30/20 Preoperative Diagnosis: Urinary retention secondary to BPH Postoperative Diagnosis: Same Procedure(s) Performed: Cystoscopy with bipolar TURP Anesthesia: WIL Surgeon: Juvencio Welch Estimated Blood Loss (ml): 50 Pathology: other (Prostate) Condition: stable Disposition: PACU Indications for Procedure: The patient is 89. He went in urine retention after pneumonia. We've been unable to get him out of retention with conservative measures. He comes for a bipolar TURP Description of Procedure: Patient brought to the operating suite. He is given successful general endotracheal anesthesia. He's placed lithotomy position with sterile prep and drape. Preoperative ampicillin and gentamicin. Under direct vision the 25- Polish sheath tract vision obturator and Foroblique lenses introduced in urethra. Urethra is normal. The prostate shows lateral lobe obstruction. The bladder varela heavily trabeculated. With the Quan resectoscope and the bipolar loop the lateral lobe on the left is resected bladder neck to verumontanum 12:00 to 6:00. I do the same on the right side. I then resect the redundant tissue on the floor. The bladder is free to prostatic chips with the Ellik evacuator. Prostatic bleeding is controlled electrocautery. I r einspected the bladder that no remaining chips. I reinspected the prostate is no active bleeding. The resectoscope removed. The bladder could aid with a strong stream. An 18-Polish coud-tip catheter 5 mL balloon is introduced the bladder with clear to very light pink urine return. The patient we placed in the hospital overnight because of his age and cardiac issues and observe for 24 hours. Blood loss is 50 mL. The patient tolerated procedure well.
[2020-08-30] MEDS: DEXTROSE 5%-0.45% NACL 1,000 ML IV SCH (11:50)
[2020-08-30] MEDS: DOCUSATE 100 MG CAP PO SCH ×2 (12:00→21:07)
[2020-08-30] MEDS: FLUTICASONE 50MCG/SPRAY NASAL 16GM EA NOSTRIL SCH ×2 (12:00→21:08)
[2020-08-30] MEDS: SYMBICORT 80-4.5 MCG INHALER INHALATION SCH (20:27)
[2020-08-30] MEDS ORDERED: METOPROLOL SUCCINATE (ER) 25 MG TAB.ER.24H PO SCH (21:00)
[2020-08-31] MEDS: DEXTROSE 5%-0.45% NACL 1,000 ML IV SCH (02:35)
[2020-08-31 07:32] VITALS: RESP 15
[2020-08-31] MEDS: SYMBICORT 80-4.5 MCG INHALER INHALATION SCH (07:49)
[2020-08-31] MEDS: DOCUSATE 100 MG CAP PO SCH (08:09)
[2020-08-31] MEDS: FLUTICASONE 50MCG/SPRAY NASAL 16GM EA NOSTRIL SCH (08:09)
--- NOTE | 2020-08-31 12:28 | P.DS ---
Providers Expected date of discharge: 08/31/20 Attending physician: Juvencio Welch Primary care physician: Francie Quiñones [facility] Course: On the day of admission, the patient underwent an uncomplicated bipolar TURP. The perioperative course was unremarkable. By the first postoperative day, the urine had cleared. The patient denied pain and was comfortable at that time. He was tolerating diet. He was afebrile with stable vital signs. Procedures: Cystoscopy, TURP on 08/30/2020 Patient Condition at Discharge: Good Plan - Discharge Summary Discharge Rx Participant: Yes New Discharge Prescriptions: No Action Fluticasone/Salmeterol [Advair 250-50 Diskus] 1 puff INHALATION RT-BID Apixaban [Eliquis] 5 mg PO BID Metoprolol Succinate [Toprol XL] 25 mg PO HS Fluticasone Nasal [place] [Flonase Nasal [place]] 1 spray EA NOSTRIL BID polyethylene glycoL 3350 [Miralax] 17 gm PO DAILY PRN #15 packet PRN Reason: Constipation L.acidoph,Paracasei, B.lactis [Probiotic] 1 each PO DAILY Discharge Medication List Fluticasone/Salmeterol [Advair 250-50 Diskus] 1 puff INHALATION RT-BID 02/28/14 [History] Apixaban [Eliquis] 5 mg PO BID 05/20/17 [History] Fluticasone Nasal [place] [Flonase Nasal [place]] 1 spray EA NOSTRIL BID 07/08/20 [History] Metoprolol Succinate [Toprol XL] 25 mg PO HS 07/08/20 [History] polyethylene glycoL 3350 [Miralax] 17 gm PO DAILY PRN #15 packet 07/10/20 [Rx] L.acidoph,Paracasei, B.lactis [Probiotic] 1 each PO DAILY 08/25/20 [History] Follow up Appointment(s)/Referral(s): Juvencio Welch MD [STAFF PHYSICIAN] - 09/04/20 Activity/Diet/Wound Care/Special Instructions: Discharge home with [place] catheter. Avoid straining and strenuous activity. Take stool softener OTC as needed. Drink plenty of fluids. Follow up with Dr. Welch on September 04 (AM appointment) for [place] catheter removal. Discharge Disposition: HOME SELF-CARE
[2020-08-31 13:25] VITALS: BP 123/68; PULSE 68; TEMP 98.3
== END 2020-08-31 14:35 | disposition home or self-care (01) ==
LOC: OR 06:19 → 5NMEDONC 08:42 → OR 08-31 14:35
PROVIDERS: ATTEND Urology
DX: N40.1 Benign prostatic hyperplasia with lower urinary tract symptoms (principal); R33.8 Other retention of urine; I48.0 Paroxysmal atrial fibrillation; I49.5 Sick sinus syndrome; I70.0 Atherosclerosis of aorta; J44.9 Chronic obstructive pulmonary disease, unspecified; K21.9 Gastro-esophageal reflux disease without esophagitis; Z95.0 Presence of cardiac pacemaker; Z87.01 Personal history of pneumonia (recurrent); Z86.73 Personal history of transient ischemic attack (TIA), and cerebral infarction without residual deficits; Z85.828 Personal history of other malignant neoplasm of skin; Z87.11 Personal history of peptic ulcer disease; Z87.891 Personal history of nicotine dependence; Z97.2 Presence of dental prosthetic device (complete) (partial); Z79.01 Long term (current) use of anticoagulants; Z79.899 Other long term (current) drug therapy; Z79.51 Long term (current) use of inhaled steroids; Z88.5 Allergy status to narcotic agent; Z88.8 Allergy status to other drugs, medicaments and biological substances; Z98.42 Cataract extraction status, left eye; Z98.41 Cataract extraction status, right eye; Z90.49 Acquired absence of other specified parts of digestive tract; Z98.890 Other specified postprocedural states; Z82.3 Family history of stroke; Z83.3 Family history of diabetes mellitus
CPT/HCPCS: 94640 ×2; 88305; 52601; J2405; J1580; J0290

== ENCOUNTER → 2020-11-21 | Outpatient (CLI) | payer MEDICARE ==
--- NOTE | 2020-11-21 10:54 | XR ---
EXAMINATION TYPE: XR lumbar spine 2 or 3V DATE OF EXAM: 11/21/2020 COMPARISON: 04/26/2020 HISTORY: Increasing low back pain TECHNIQUE: 3 view lumbar spine FINDINGS: Structures appear osteopenic. This could be correlated with bone density. Mild endplate mekhi nges may be present at L5. This be chronic. Vertebral plasty at L1 is evident. Compression deformity superior endplate of L2 and to a mild degree L3 was present previously. Pedicles appear intact. IMPRESSION: 1. Old compression deformities discussed above. 2. No acute osseous abnormality. 3. Osteopenia, could be correlated with bone density.
== END | disposition home or self-care (01) ==
LOC: RADXRYALE 10:20
PROVIDERS: ATTEND Family Medicine
DX: M85.88 Other specified disorders of bone density and structure, other site (principal)
CPT/HCPCS: 72100

== ENCOUNTER 2020-12-11 20:03 | Observation (INO) | payer MEDICARE ==
--- NOTE | 2020-12-11 20:41 | ED ---
General Adult HPI - General Stated complaint: NVD Time Seen by Provider: 12/11/20 20:11 - History of Present Illness Initial comments: 89 year-old male patient was brought to the hospital by EMS for nausea and vomiting. EMS states that family states patient was agitated at home which is unusual. States that he was having vomiting at home. Patient denies having any vomiting. Denies any diarrhea, fever, or chills. He states that he is having difficulty urinating today. States he has history of prostate problems, did have surgery. He is also reporting a headache, but states he has had it for "10 years". Generally takes tylenol. States it is no worse than usual. Denies any recent falls or injuries. He did receive 500ml fluid bolus and zofran from EMS. - Related Data Home Medications Medication Instructions Recorded Confirmed Fluticasone/Salmeterol [Advair 1 puff INHALATION RT-BID 02/28/14 12/11/20 250-50 Diskus] Apixaban [Eliquis] 5 mg PO BID 05/20/17 12/11/20 Fluticasone Nasal [place] [Flonase 1 spray EA NOSTRIL BID 07/08/20 12/11/20 Nasal [place]] Metoprolol Succinate [Toprol XL] 25 mg PO HS 07/08/20 12/11/20 Atorvastatin [Lipitor] 40 mg PO HS 12/11/20 12/11/20 Allergies Allergy/AdvReac Type Severity Reaction Status Date / Time codeine Allergy Intermediate Hallucinati Verified 12/11/20 23:47 ons prednisone AdvReac agitated Verified 12/11/20 23:47 Review of Systems ROS Statement: Those systems with pertinent positive or pertinent negative responses have been documented in the HPI. ROS Other: All systems not noted in ROS Statement are negative. Past Medical History Past Medical History: Atrial Fibrillation, Cancer, COPD, CVA/TIA, GERD/Reflux, Pneumonia Additional Past Medical History / Comment(s): Pacemaker, hx basal cell carcinoma of the skin, hx encephalopathy, hx peptic ulcer disease/gastric ulcer repaired surgically. Low BP. 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 Hx Bacterial Pneumonia 07/09. Current Prostate problems and urine retention related to medication used to treat Bacterial Pneumonia. History of Any Multi-Drug Resistant Organisms: None Reported Past Surgical History: Appendectomy, Cholecystectomy, Heart Catheterization, Pacemaker Additional Past Surgical History / Comment(s): BILATERAL CATARACTS REMOVED, ULCER SURGERY, HEMORRHOID SURGERY, DUAL PACEMAKER IMPLANTED, stomach surgery r/t ulcer. Past Anesthesia/Blood Transfusion Reactions: No Reported Reaction Type of Cardiac Device: Permanent Pacemaker Device Placement Date:: 2013 Past Psychological History: No Psychological Hx Reported Additional Psychological History / Comment(s): Pt resides ith his spouse. He uses a cane prn-especially at nite. wn meds. takes care of medications they have visiting nurse come to the house Smoking Status: Former smoker Past Alcohol Use History: Rare Additional Past Alcohol Use History / Comment(s): STARTED SMOKING AT AGE 22, SMOKED 1 PPD. HAD QUIT ONCE FOR 1O YEARS THEN RESTARTED AFTER OF SON, QUIT IN 1999. Past Drug Use History: None Reported - Past Family History Father Family Medical History: CVA/TIA Additional Family Medical History / Comment(s): NOT SURE IF HE HAD MINI STROKES OR HEART PROBLEM. DAD AT AGE 82. Mother Family Medical History: Diabetes Mellitus Additional Family Medical History / Comment(s): AT AGE 76. General Exam General appearance: alert, in no apparent distress, other (This is a well- developed, well-nourished elderly male patient in no acute distress.) Eye exam: Present: normal appearance, PERRL, EOMI. Absent: scleral icterus, conjunctival injection, nystagmus, periorbital swelling ENT exam: Present: normal exam, normal oropharynx, mucous membranes moist Respiratory exam: Present: normal lung sounds bilaterally. Absent: respiratory distress, wheezes, rales, rhonchi, stridor Cardiovascular Exam: Present: regular rate, normal rhythm, normal heart sounds. Absent: systolic murmur, diastolic murmur, rubs, gallop, clicks GI/Abdominal exam: Present: soft, normal bowel sounds. Absent: distended, tenderness, guarding, rebound, rigid Neurological exam: Present: alert, CN II-XII intact. Absent: oriented X3 (Oriented 2) Psychiatric exam: Present: normal affect, normal mood Skin exam: Present: warm, dry, intact, normal color. Absent: rash Course Vital Signs 12/11/20 12/12/20 20:04 00:16 Temperature 97.4 F L Pulse Rate 74 71 Respiratory 17 16 Rate Blood Pressure 141/82 138/79 O2 Sat by Pulse 96 99 Oximetry EKG Findings - EKG Comments: EKG Findings:: EKG obtained at 2022 shows normal sinus rhythm with a ventricular rate is 67, ND interval 178, QRS duration 82, QT 432, QTc 456. No evidence of ST elevation or depression. Medical Decision Making - Medical Decision Making 89-year-old male patient presents to the emergency department today for evaluati on of nausea, vomiting, agitation. He also reports headache though states he's had it for the last 10 years. Does have a history of occipital neuralgia. Physical examination is unremarkable. He is neurologically intact with no focal deficits. Abdomen is soft and nontender. Labs reviewed and are relatively unremarkable though urine does show large leukocyte esterase, 66 white blood cells, and rare bacteria consistent with urinary tract infection. He'll be admitted to the hospital for IV antibiotics. Patient and family are agreeable with this plan. Case discussed with my attending Dr. Lizarraga. - Lab Data Result diagrams: 12/11/20 20:56 12/11/20 20:56 Lab Results 12/11/20 12/11/20 12/11/20 Range/Units 20:56 20:56 20:56 WBC 4.0 (3.8-10.6) k/uL RBC 4.35 (4.30-5.90) m/uL Hgb 12.9 L (13.0-17.5) gm/dL Hct 37.7 L (39.0-53.0) % MCV 86.6 (80.0-100.0) fL MCH 29.6 (25.0-35.0) pg MCHC 34.1 (31.0-37.0) g/dL RDW 14.2 (11.5-15.5) % Plt Count 143 L (150-450) k/uL MPV 7.1 Neutrophils % 56 % Lymphocytes % 26 % Monocytes % 10 % Eosinophils % 5 % Basophils % 1 % Neutrophils # 2.2 (1.3-7.7) k/uL Lymphocytes # 1.0 (1.0-4.8) k/uL Monocytes # 0.4 (0-1.0) k/uL Eosinophils # 0.2 (0-0.7) k/uL Basophils # 0.0 (0-0.2) k/uL Sodium 138 (137-145) mmol/L Potassium 4.2 (3.5-5.1) mmol/L Chloride 109 H (98-107) mmol/L Carbon Dioxide 25 (22-30) mmol/L Anion Gap 4 mmol/L BUN 19 (9-20) mg/dL Creatinine 0.75 (0.66-1.25) mg/dL Est GFR (CKD-EPI)AfAm >90 (>60 ml/min/1.73 sqM) Est GFR (CKD-EPI)NonAf 82 (>60 ml/min/1.73 sqM) Glucose 104 H (74-99) mg/dL Plasma Lactic Acid Alphonse (0.7-2.0) mmol/L Calcium 9.2 (8.4-10.2) mg/dL Total Bilirubin 1.1 (0.2-1.3) mg/dL AST 33 (17-59) U/L ALT 16 (4-49) U/L Alkaline Phosphatase 102 (38-126) U/L Total Protein 6.0 L (6.3-8.2) g/dL Albumin 3.3 L (3.5-5.0) g/dL Lipase 120 (23-300) U/L Urine Color Light Yellow Urine Appearance Clear (Clear) Urine pH 7.0 (5.0-8.0) Ur Specific [place] 1.006 (1.001-1.035) Urine Protein Negative (Negative) Urine Glucose (UA) Negative (Negative) Urine Ketones Negative (Negative) Urine Blood Negative (Negative) Urine Nitrite Negative (Negative) Urine Bilirubin Negative (Negative) Urine Urobilinogen <2.0 (<2.0) mg/dL Ur Leukocyte Esterase Large H (Negative) Urine RBC 1 (0-5) /hpf Urine WBC 66 H (0-5) /hpf Urine Bacteria Rare H (None) /hpf 12/11/20 Range/Units 20:56 WBC (3.8-10.6) k/uL RBC (4.30-5.90) m/uL Hgb (13.0-17.5) gm/dL Hct (39.0-53.0) % MCV (80.0-100.0) fL MCH (25.0-35.0) pg MCHC (31.0-37.0) g/dL RDW (11.5-15.5) % Plt Count (150-450) k/uL MPV Neutrophils % % Lymphocytes % % Monocytes % % Eosinophils % % Basophils % % Neutrophils # (1.3-7.7) k/uL Lymphocytes # (1.0-4.8) k/uL Monocytes # (0-1.0) k/uL Eosinophils # (0-0.7) k/uL Basophils # (0-0.2) k/uL Sodium (137-145) mmol/L Potassium (3.5-5.1) mmol/L Chloride (98-107) mmol/L Carbon Dioxide (22-30) mmol/L Anion Gap mmol/L BUN (9-20) mg/dL Creatinine (0.66-1.25) mg/dL Est GFR (CKD-EPI)AfAm (>60 ml/min/1.73 sqM) Est GFR (CKD-EPI)NonAf (>60 ml/min/1.73 sqM) Glucose (74-99) mg/dL Plasma Lactic Acid [place] 1.4 (0.7-2.0) mmol/L Calcium (8.4-10.2) mg/dL Total Bilirubin (0.2-1.3) mg/dL AST (17-59) U/L ALT (4-49) U/L Alkaline Phosphatase (38-126) U/L Total Protein (6.3-8.2) g/dL Albumin (3.5-5.0) g/dL Lipase (23-300) U/L Urine Color Urine Appearance (Clear) Urine pH (5.0-8.0) Ur Specific [place] (1.001-1.035) Urine Protein (Negative) Urine Glucose (UA) (Negative) Urine Ketones (Negative) Urine Blood (Negative) Urine Nitrite (Negative) Urine Bilirubin (Negative) Urine Urobilinogen (<2.0) mg/dL Ur Leukocyte Esterase (Negative) Urine RBC (0-5) /hpf Urine WBC (0-5) /hpf Urine Bacteria (None) /hpf Disposition Clinical Impression: Urinary tract infection Disposition: ADMITTED IP TO THIS [facility] Condition: Serious Decision to Admit Reason: Admit from EC Decision Date: 12/11/20 Decision Time: 23:58
[2020-12-11 21:05] LABS: Basophils % (A) 1 %; Eosinophils # (A) 0.2 k/uL (0-0.7); Eosinophils % (A) 5 %; HCT 37.7 % (39.0-53.0); HGB 12.9 gm/dL (13.0-17.5); Lymphocytes % (A) 26 %; MCH 29.6 pg (25.0-35.0); MCHC 34.1 g/dL (31.0-37.0); MCV 86.6 fL (80.0-100.0); Mean Platelet Volume 7.1; Monocytes # (A) 0.4 k/uL (0-1.0); Monocytes % (A) 10 %; Neutrophils # (A) 2.2 k/uL (1.3-7.7); Neutrophils % (A) 56 %; Platelet Count 143 k/uL (150-450); RBC 4.35 m/uL (4.30-5.90); RDW 14.2 % (11.5-15.5)
[2020-12-11 21:08] LABS: Appearance,Urine Clear (Clear); Bacteria,Urine Rare /hpf; Bilirubin,Urine Negative (Negative); Blood,Urine Negative (Negative); Color,Urine Light Yellow; Glucose,Urine (UA) Negative (Negative); Ketones,Urine Negative (Negative); Leukocyte Esterase,Urine Large (Negative); Nitrite,Urine Negative (Negative); Protein,Urine Negative (Negative); RBC,Urine 1 /hpf (0-5); Specific Gravity,Urine 1.006 (1.001-1.035); Urobilinogen,Urine <2.0 mg/dL (<2.0); WBC,Urine 66 /hpf (0-5)
[2020-12-11 21:38] LABS: Glucose 104 mg/dL (74-99)
[2020-12-11] MEDS ORDERED: cefTRIAXone IN SWFI 1,000 MG/10 ML SYRINGE IVP STA (21:39)
[2020-12-11 21:48] LABS: Albumin 3.3 g/dL (3.5-5.0)
[2020-12-11 21:52] LABS: ALT 16 U/L (4-49); AST 33 U/L (17-59); African American GFR (CKD) >90 (>60 ml/min/1.73 sqM); Alkaline Phosphatase 102 U/L (38-126); Anion Gap 4 mmol/L; Blood Urea Nitrogen 19 mg/dL (9-20); Calcium 9.2 mg/dL (8.4-10.2); Carbon Dioxide 25 mmol/L (22-30); Chloride 109 mmol/L (98-107); Lipase 120 U/L (23-300); Non-African American GFR(CKD) 82 (>60 ml/min/1.73 sqM); Potassium 4.2 mmol/L (3.5-5.1); Sodium 138 mmol/L (137-145); Total Bilirubin 1.1 mg/dL (0.2-1.3)
[2020-12-11] MEDS ORDERED: NALOXONE 0.4 MG/ML 1 ML VIAL IV PRN (23:57)
[2020-12-11] MEDS ORDERED: ONDANSETRON 4 MG/2 ML VIAL IVP PRN (23:57)
[2020-12-12 05:32] LABS: Basophils % (A) 1 %; Eosinophils # (A) 0.2 k/uL (0-0.7); Eosinophils % (A) 5 %; HCT 36.8 % (39.0-53.0); HGB 12.6 gm/dL (13.0-17.5); Lymphocytes # (A) 0.9 k/uL (1.0-4.8); Lymphocytes % (A) 23 %; MCHC 34.3 g/dL (31.0-37.0); MCV 87.7 fL (80.0-100.0); Mean Platelet Volume 7.3; Monocytes # (A) 0.4 k/uL (0-1.0); Monocytes % (A) 11 %; Neutrophils # (A) 2.2 k/uL (1.3-7.7); Neutrophils % (A) 58 %; Platelet Count 131 k/uL (150-450); RDW 14.4 % (11.5-15.5); WBC 3.8 k/uL (3.8-10.6)
[2020-12-12] MEDS: ACETAMINOPHEN TAB 325 MG TAB PO PRN (10:24)
[2020-12-12] MEDS: APIXABAN 5 MG TAB PO SCH ×2 (10:24→21:44)
--- NOTE | 2020-12-12 10:54 | P.HPIM ---
History of Present Illness This is a pleasant 89 years old male with multiple medical problems he is status post cystoscopy with bipolar TURP on 08/[address] Ordoñez, atrial fibrillation, CVA, COPD, status post pacemaker, history of gastric ulcer status post surgical repair Presents with headache and urination difficulty. Patient did not want to tell me he was going on and asked me to call his and he given her number whom I called at [phone], and her line could not let me leave a message to call back. Information were obtained from staff and medical records. The patient was brought by the family for he was agitated at home. Associated with some vomiting. And with reports of significantly difficult urination. He could remember that he had a TURP procedure few months ago with Dr. Ordoñez However patient was lying in bed comfortable, make sense when he talks, not in distress, not in pain, denies nausea vomiting, denies chest pain or dyspnea, denies headache or weakness. He moves all extremities find He denies smoking, alcohol or illicit drugs Vitals are stable. Labs show an unremarkable CBC, BMP and liver enzymes. Urine analysis showing large leukocyte esterase. Coronal versus not detected. EKG showing normal sinus rhythm at [address]-T changes. On admission patient was started on ceftriaxone. Urine culture is pending Patient was started on ceftriaxone Review of Systems CONSTITUTIONAL: No fever, no malaise, no fatigue. HEENT: No recent visual problems or hearing problems. Denied any sore throat. CARDIOVASCULAR: No orthopnea, PND, no palpitations, no syncope. PULMONARY: No shortness of breath, no cough, no hemoptysis. GASTROINTESTINAL: No diarrhea, no nausea, no vomiting, no abdominal pain. Normoactive bowel sounds. NEUROLOGICAL: No headaches, no weakness, no numbness. HEMATOLOGICAL: Denies any bleeding or petechiae. GENITOURINARY: Denies any burning micturition, frequency, or urgency. MUSCULOSKELETAL/RHEUMATOLOGICAL: Denies any joint pain, swelling, or any muscle pain. ENDOCRINE: Denies any polyuria or polydipsia. Past Medical History Past Medical History: Atrial Fibrillation, Cancer, COPD, CVA/TIA, GERD/Reflux, Pneumonia Additional Past Medical History / Comment(s): Pacemaker, hx basal cell carcinoma of the skin, hx encephalopathy, hx peptic ulcer disease/gastric ulcer repaired surgically. Low BP. 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 Hx Bacterial Pneumonia 07/09. Current Prostate problems and urine retention related to medication used to treat Bacterial Pneumonia. History of Any Multi-Drug Resistant Organisms: None Reported Past Surgical History: Appendectomy, Cholecystectomy, Heart Catheterization, Pacemaker Additional Past Surgical History / Comment(s): BILATERAL CATARACTS REMOVED, ULCER SURGERY, HEMORRHOID SURGERY, DUAL PACEMAKER IMPLANTED, stomach surgery r/t ulcer. Past Anesthesia/Blood Transfusion Reactions: No Reported Reaction Type of Cardiac Device: Permanent Pacemaker Device Placement Date:: 2013 Past Psychological History: No Psychological Hx Reported Additional Psychological History / Comment(s): Pt resides ith his spouse. He uses a cane prn-especially at nite. wn meds. takes care of medications they have visiting nurse come to the house Smoking Status: Former smoker Past Alcohol Use History: Rare Additional Past Alcohol Use History / Comment(s): STARTED SMOKING AT AGE 22, SMOKED 1 PPD. HAD QUIT ONCE FOR 1O YEARS THEN RESTARTED AFTER OF SON, QUIT IN 1999. Past Drug Use History: None Reported - Past Family History Father Family Medical History: CVA/TIA Additional Family Medical History / Comment(s): NOT SURE IF HE HAD MINI STROKES OR HEART PROBLEM. DAD AT AGE 82. Mother Family Medical History: Diabetes Mellitus Additional Family Medical History / Comment(s): AT AGE 76. Medications and Allergies Home Medications Medication Instructions Recorded Confirmed Type Fluticasone/Salmeterol [Advair 1 puff INHALATION RT-BID 02/28/14 12/11/20 History 250-50 Diskus] Apixaban [Eliquis] 5 mg PO BID 05/20/17 12/11/20 History Fluticasone Nasal [place] [Flonase 1 spray EA NOSTRIL BID 07/08/20 12/11/20 History Nasal [place]] Metoprolol Succinate [Toprol XL] 25 mg PO HS 07/08/20 12/11/20 History Atorvastatin [Lipitor] 40 mg PO HS 12/11/20 12/11/20 History Allergies Allergy/AdvReac Type Severity Reaction Status Date / Time codeine Allergy Intermediate Hallucinati Verified 12/11/20 23:47 ons prednisone AdvReac agitated Verified 12/11/20 23:47 Physical Exam Vitals: Vital Signs Temp Pulse Pulse Resp BP BP Pulse Ox 12/12/20 07:00 97.8 F 107 H 16 126/63 97 12/12/20 06:26 78 18 140/70 99 12/12/20 00:16 71 16 138/79 99 12/11/20 20:04 97.4 F L 74 17 141/82 96 Intake and Output 12/11/20 12/12/20 12/12/20 22:59 06:59 14:59 Output Total 400 600 Balance -400 -600 Output: Urine 400 600 Other: # Voids 1 2 Weight 58.967 kg -GENERAL: The patient is alert and oriented , somewhat confused, not in any acute distress. Well developed, well nourished. HEENT: Pupils are round and equally reacting to light. EOMI. No scleral icterus. No conjunctival pallor. Normocephalic, atraumatic. No pharyngeal erythema. No thyromegaly. CARDIOVASCULAR: S1 and S2 present. No murmurs, rubs, or gallops. PULMONARY: Chest is clear to auscultation, no wheezing or crackles. ABDOMEN: Soft, nontender, nondistended, normoactive bowel sounds. No palpable organomegaly. MUSCULOSKELETAL: No joint swelling or deformity. EXTREMITIES: No cyanosis, clubbing, or pedal edema. NEUROLOGICAL: Gross neurological examination did not reveal any focal deficits. SKIN: No rashes. No petechiae Results CBC & Chem 7: 12/12/20 04:24 12/11/20 20:56 Labs: Abnormal Lab Results - Last 24 Hours (Table) 12/11/20 12/11/20 12/11/20 Range/Units 20:56 20:56 20:56 RBC (4.30-5.90) m/uL Hgb 12.9 L (13.0-17.5) gm/dL Hct 37.7 L (39.0-53.0) % Plt Count 143 L (150-450) k/uL Lymphocytes # (1.0-4.8) k/uL Chloride 109 H (98-107) mmol/L Glucose 104 H (74-99) mg/dL Total Protein 6.0 L (6.3-8.2) g/dL Albumin 3.3 L (3.5-5.0) g/dL Ur Leukocyte Esterase Large H (Negative) Urine WBC 66 H (0-5) /hpf Urine Bacteria Rare H (None) /hpf 12/12/20 Range/Units 04:24 RBC 4.20 L (4.30-5.90) m/uL Hgb 12.6 L (13.0-17.5) gm/dL Hct 36.8 L (39.0-53.0) % Plt Count 131 L (150-450) k/uL Lymphocytes # 0.9 L (1.0-4.8) k/uL Chloride (98-107) mmol/L Glucose (74-99) mg/dL Total Protein (6.3-8.2) g/dL Albumin (3.5-5.0) g/dL Ur Leukocyte Esterase (Negative) Urine WBC (0-5) /hpf Urine Bacteria (None) /hpf Microbiology - Last 24 Hours (Table) 12/11/20 20:56 Urine Culture - Preliminary Urine,Voided Assessment and Plan Assessment: Acute urinary tract infection History of BPH status post recent TURP History of atrial fibrillation History of CVA COPD, not in acute exacerbation history of gastric ulcer status post surgical repair Plan: This is a pleasant 89 years old male who presents with UTI in view of recent history of TURP a few months ago. Continue with antibiotics. Follow-up urine culture. Consult urology service Labs and medication were reviewed.. Continue same treatment. Continue with symptomatic treatment. Resume home medication. Monitor lytes and vitals. DVT and GI prophylaxis. Further recommendations depends on the clinical course of the patient DVT prophylaxisEliquis GI Prophylaxis: Pepcid PT/OT: Pending Prognosis is guarded
--- NOTE | 2020-12-12 17:11 | P.GSCN ---
History of Present Illness Consult date: 12/12/20 History of present illness: 89 yo male admittted or altered mental status due to a probable uti. He had a turp for retention in september for b9 disease. He has been voiding ok. 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 History of Any Multi-Drug Resistant Organisms: None Reported Past Surgical History: Appendectomy, Cardiac Ablation, Cholecystectomy, Heart Catheterization, Pacemaker Additional Past Surgical History / Comment(s): 08/30/20 TURP, laparotomy for ulcer repair/partial gastrectomy, hemorrhoidectomy, colonoscopies, EGDs, bilateral cataract removals, skin cancer removed from face, occipital nerve injections. Past Anesthesia/Blood Transfusion Reactions: No Reported Reaction Type of Cardiac Device: Permanent Pacemaker Device Placement Date:: 2013 Smoking Status: Former smoker - Past Family History Father Family Medical History: CVA/TIA Additional Family Medical History / Comment(s): Father had TIAs. He passed at the age of 82 yrs. Mother Family Medical History: Diabetes Mellitus Additional Family Medical History / Comment(s): AT AGE 76. Medications and Allergies Home Medications Medication Instructions Recorded Confirmed Type Fluticasone/Salmeterol [Advair 1 puff INHALATION RT-BID 02/28/14 12/11/20 History 250-50 Diskus] Apixaban [Eliquis] 5 mg PO BID 05/20/17 12/11/20 History Fluticasone Nasal [place] [Flonase 1 spray EA NOSTRIL BID 07/08/20 12/11/20 History Nasal [place]] Metoprolol Succinate [Toprol XL] 25 mg PO HS 07/08/20 12/11/20 History Atorvastatin [Lipitor] 40 mg PO HS 12/11/20 12/11/20 History Allergies Allergy/AdvReac Type Severity Reaction Status Date / Time codeine Allergy Intermediate Hallucinati Verified 12/11/20 23:47 ons prednisone AdvReac agitated Verified 12/11/20 23:47 Surgical - Exam Vital Signs Temp Pulse Resp BP Pulse Ox 97.4 F L 74 17 141/82 96 12/11/20 20:04 12/11/20 20:04 12/11/20 20:04 12/11/20 20:04 12/11/20 20:04 - General well developed, well nourished - ENT no hearing loss - Neck trachea midline - Respiratory normal expansion, normal respiratory effort - Cardiovascular Rhythm: regular - Abdomen Abdomen: soft, non tender Results - Labs 12/12/20 04:24 12/11/20 20:56 Abnormal Lab Results - Last 24 Hours (Table) 12/11/20 12/11/20 12/11/20 Range/Units 20:56 20:56 20:56 RBC (4.30-5.90) m/uL Hgb 12.9 L (13.0-17.5) gm/dL Hct 37.7 L (39.0-53.0) % Plt Count 143 L (150-450) k/uL Lymphocytes # (1.0-4.8) k/uL Chloride 109 H (98-107) mmol/L Glucose 104 H (74-99) mg/dL Total Protein 6.0 L (6.3-8.2) g/dL Albumin 3.3 L (3.5-5.0) g/dL Ur Leukocyte Esterase Large H (Negative) Urine WBC 66 H (0-5) /hpf Urine Bacteria Rare H (None) /hpf 12/12/20 Range/Units 04:24 RBC 4.20 L (4.30-5.90) m/uL Hgb 12.6 L (13.0-17.5) gm/dL Hct 36.8 L (39.0-53.0) % Plt Count 131 L (150-450) k/uL Lymphocytes # 0.9 L (1.0-4.8) k/uL Chloride (98-107) mmol/L Glucose (74-99) mg/dL Total Protein (6.3-8.2) g/dL Albumin (3.5-5.0) g/dL Ur Leukocyte Esterase (Negative) Urine WBC (0-5) /hpf Urine Bacteria (None) /hpf Microbiology - Last 24 Hours (Table) 12/11/20 20:56 Urine Culture - Preliminary Urine,Voided Diabetes panel 12/11/20 Range/Units 20:56 Sodium 138 (137-145) mmol/L Potassium 4.2 (3.5-5.1) mmol/L Chloride 109 H (98-107) mmol/L Carbon Dioxide 25 (22-30) mmol/L BUN 19 (9-20) mg/dL Creatinine 0.75 (0.66-1.25) mg/dL Glucose 104 H (74-99) mg/dL Calcium 9.2 (8.4-10.2) mg/dL AST 33 (17-59) U/L ALT 16 (4-49) U/L Alkaline Phosphatase 102 (38-126) U/L Total Protein 6.0 L (6.3-8.2) g/dL Albumin 3.3 L (3.5-5.0) g/dL Calcium panel 12/11/20 Range/Units 20:56 Calcium 9.2 (8.4-10.2) mg/dL Albumin 3.3 L (3.5-5.0) g/dL Pituitary panel 12/11/20 Range/Units 20:56 Sodium 138 (137-145) mmol/L Potassium 4.2 (3.5-5.1) mmol/L Chloride 109 H (98-107) mmol/L Carbon Dioxide 25 (22-30) mmol/L BUN 19 (9-20) mg/dL Creatinine 0.75 (0.66-1.25) mg/dL Glucose 104 H (74-99) mg/dL Calcium 9.2 (8.4-10.2) mg/dL Adrenal panel 12/11/20 Range/Units 20:56 Sodium 138 (137-145) mmol/L Potassium 4.2 (3.5-5.1) mmol/L Chloride 109 H (98-107) mmol/L Carbon Dioxide 25 (22-30) mmol/L BUN 19 (9-20) mg/dL Creatinine 0.75 (0.66-1.25) mg/dL Glucose 104 H (74-99) mg/dL Calcium 9.2 (8.4-10.2) mg/dL Total Bilirubin 1.1 (0.2-1.3) mg/dL AST 33 (17-59) U/L ALT 16 (4-49) U/L Alkaline Phosphatase 102 (38-126) U/L Total Protein 6.0 L (6.3-8.2) g/dL Albumin 3.3 L (3.5-5.0) g/dL Assessment and Plan Assessment: Impresssion": Uti, sp turp Recommendation: I wll have the nursing staff check a bladder scan residual. Await urine cultures.
[2020-12-12] MEDS: SYMBICORT 80-4.5 MCG INHALER INHALATION SCH (20:17)
[2020-12-12] MEDS: ATORVASTATIN 40 MG TAB PO SCH (21:44)
[2020-12-12] MEDS: METOPROLOL SUCCINATE (ER) 25 MG TAB.ER.24H PO SCH (21:44)
[2020-12-12] MEDS: FAMOTIDINE 20 MG/2 ML VIAL IV SCH (21:45)
[2020-12-13] MEDS: ACETAMINOPHEN TAB 325 MG TAB PO PRN (00:43)
--- NOTE | 2020-12-13 07:24 | P.PN ---
Subjective Progress Note Date: 12/13/20 The patient is in the hospital with a urinary tract infection. His urine culture shows a gram-negative bacillus with sensitivities and ID pending. His postvoid residual is 0. Once the bacteria is identified and sensitivities present then he can be placed on oral antibiotics. I would probably treat him with several weeks of oral antibiotics. I would be glad to follow him in the office. Objective - Vital Signs Vital signs: Vital Signs Temp 98.3 F 12/13/20 07:00 Pulse 68 12/13/20 07:00 Resp 16 12/13/20 07:00 BP 118/83 12/13/20 07:00 Pulse Ox 95 12/13/20 07:00 Intake & Output 12/12/20 12/13/20 12/13/20 18:59 06:59 18:59 Intake Total 250 Output Total 700 Balance 250 -700 Weight 58.967 kg Intake: IV 50 cefTRIAXone 1 gm In 50 Sodium Chloride 0.9% 50 ml @ 100 mls/hr IVPB Q24H [facility] Rx#:[id number] Oral 200 Output: Urine 700 Post Void Residual 0 Other: Voiding Method Urinal Urinal # Voids 1 1 # Bowel Movements 1 - Labs CBC & Chem 7: 12/12/20 04:24 12/11/20 20:56 Labs: Microbiology - Last 24 Hours (Table) 12/11/20 20:56 Urine Culture - Preliminary Urine,Voided Gram Neg Bacilli
[2020-12-13] MEDS: FAMOTIDINE 20 MG/2 ML VIAL IV SCH ×2 (07:53→20:14)
[2020-12-13] MEDS: APIXABAN 5 MG TAB PO SCH ×2 (07:53→20:13)
[2020-12-13] MEDS: SYMBICORT 80-4.5 MCG INHALER INHALATION SCH ×2 (08:04→20:14)
[2020-12-13] MEDS ORDERED: LACTULOSE 20 GM/30 ML CUP PO ONE (09:15)
[2020-12-13] MEDS: DOCUSATE 100 MG CAP PO SCH ×2 (10:59→20:13)
--- NOTE | 2020-12-13 16:49 | P.PN ---
Subjective This is a pleasant 89 years old male with multiple medical problems he is status post cystoscopy with bipolar TURP on 08/[address] Ordoñez, atrial fibrillation, CVA, COPD, status post pacemaker, history of gastric ulcer status post surgical repair Presents with headache and urination difficulty. Patient did not want to tell me he was going on and asked me to call his and he given her number whom I called at [phone], and her line could not let me leave a message to call back. Information were obtained from staff and medical records. The patient was brought by the family for he was agitated at home. Associated with some vomiting. And with reports of significantly difficult urination. He could remember that he had a TURP procedure few months ago with Dr. Ordoñez However patient was lying in bed comfortable, make sense when he talks, not in distress, not in pain, denies nausea vomiting, denies chest pain or dyspnea, denies headache or weakness. He moves all extremities find He denies smoking, alcohol or illicit drugs Vitals are stable. Labs show an unremarkable CBC, BMP and liver enzymes. Urine analysis showing large leukocyte esterase. Coronal versus not detected. EKG showing normal sinus rhythm at [address]-T changes. On admission patient was started on ceftriaxone. Urine culture is pending Patient was started on ceftriaxone 12/13/2020 Patient is awake and alert, is it didn't at bedside. Not in distress, no overt urinary symptoms, he has some mild suprapubic pain. He is eating well. looks stable. Vitals are stable. Urine culture growing gram-negative bacilli No postvoid residual. Urologist recommended few weeks of oral antibiotics and close outpatient follow-up Objective - Vital Signs Vital signs: Vital Signs Temp 98.3 F 12/13/20 07:00 Pulse 68 12/13/20 07:00 Resp 16 12/13/20 07:00 BP 118/83 12/13/20 07:00 Pulse Ox 95 12/13/20 07:00 Intake & Output 12/12/20 12/13/20 12/13/20 18:59 06:59 18:59 Intake Total 250 Output Total 700 Balance 250 -700 Weight 58.967 kg Intake: IV 50 cefTRIAXone 1 gm In 50 Sodium Chloride 0.9% 50 ml @ 100 mls/hr IVPB Q24H [facility] Rx#:[id number] Oral 200 Output: Urine 700 Post Void Residual 0 Other: Voiding Method Urinal Urinal Urinal # Voids 1 1 # Bowel Movements 1 - Exam GENERAL: The patient is alert and awake and oriented 3, not in any acute distress. Well developed, well nourished. HEENT: Pupils are round and equally reacting to light. EOMI. No scleral icterus. No conjunctival pallor. Normocephalic, atraumatic. No pharyngeal erythema. No thyromegaly. CARDIOVASCULAR: S1 and S2 present. No murmurs, rubs, or gallops. PULMONARY: Chest is clear to auscultation, no wheezing or crackles. ABDOMEN: Soft, nontender, nondistended, normoactive bowel sounds. No palpable organomegaly. MUSCULOSKELETAL: No joint swelling or deformity. EXTREMITIES: No cyanosis, clubbing, or pedal edema. NEUROLOGICAL: Gross neurological examination did not reveal any focal deficits. SKIN: No rashes. no petechiae. - Labs CBC & Chem 7: 12/12/20 04:24 12/11/20 20:56 Labs: Microbiology - Last 24 Hours (Table) 12/11/20 20:56 Urine Culture - Preliminary Urine,Voided Gram Neg Bacilli Assessment and Plan Assessment: Acute urinary tract infection History of BPH status post recent TURP History of atrial fibrillation History of CVA COPD, not in acute exacerbation history of gastric ulcer status post surgical repair Plan: This is a pleasant 89 years old male who presents with UTI in view of recent history of TURP a few months ago. Continue with antibiotics. Follow-up urine culture. Consult urology service Labs and medication were reviewed.. Continue same treatment. Continue with symptomatic treatment. Resume home medication. Monitor lytes and vitals. DVT and GI prophylaxis. Further recommendations depends on the clinical course of the patient DVT prophylaxisEliquis GI Prophylaxis: Pepcid PT/OT: Pending Prognosis is guarded
[2020-12-13] MEDS: METOPROLOL SUCCINATE (ER) 25 MG TAB.ER.24H PO SCH (20:13)
[2020-12-13] MEDS: ATORVASTATIN 40 MG TAB PO SCH (20:13)
[2020-12-14 07:24] VITALS: RESP 18
[2020-12-14] MEDS: SYMBICORT 80-4.5 MCG INHALER INHALATION SCH (07:34)
[2020-12-14] MEDS: APIXABAN 5 MG TAB PO SCH (08:08)
[2020-12-14] MEDS: DOCUSATE 100 MG CAP PO SCH (08:09)
[2020-12-14] MEDS: FAMOTIDINE 20 MG/2 ML VIAL IV SCH (08:09)
[2020-12-14 14:31] VITALS: TEMP 98.1
[2020-12-14 14:33] VITALS: BP 108/61; PULSE 69
[2020-12-14] MEDS ORDERED: FAMOTIDINE 20 MG TAB PO SCH (21:00)
== END 2020-12-14 16:40 | disposition home or self-care (01) ==
LOC: EC 20:03 → 6NMEDSUR 12-12 00:30
PROVIDERS: ADMIT Hospitalist; ATTEND Hospitalist
DX: N39.0 Urinary tract infection, site not specified (principal); B96.89 Other specified bacterial agents as the cause of diseases classified elsewhere; I48.91 Unspecified atrial fibrillation; J44.9 Chronic obstructive pulmonary disease, unspecified; K21.9 Gastro-esophageal reflux disease without esophagitis; I49.5 Sick sinus syndrome; R51.9 Headache, unspecified; M54.81 Occipital neuralgia; E78.5 Hyperlipidemia, unspecified; I95.9 Hypotension, unspecified; R45.1 Restlessness and agitation; R41.82 Altered mental status, unspecified; R13.10 Dysphagia, unspecified; R33.9 Retention of urine, unspecified; Z20.822 Contact with and (suspected) exposure to COVID-19; Z79.01 Long term (current) use of anticoagulants; Z79.51 Long term (current) use of inhaled steroids; Z79.899 Other long term (current) drug therapy; Z88.5 Allergy status to narcotic agent; Z88.8 Allergy status to other drugs, medicaments and biological substances; Z86.73 Personal history of transient ischemic attack (TIA), and cerebral infarction without residual deficits; Z87.01 Personal history of pneumonia (recurrent); Z90.79 Acquired absence of other genital organ(s); Z95.0 Presence of cardiac pacemaker; Z85.828 Personal history of other malignant neoplasm of skin; Z87.11 Personal history of peptic ulcer disease; Z90.49 Acquired absence of other specified parts of digestive tract; Z87.81 Personal history of (healed) traumatic fracture; Z87.891 Personal history of nicotine dependence; Z98.42 Cataract extraction status, left eye; Z98.41 Cataract extraction status, right eye; Z98.890 Other specified postprocedural states; Z83.3 Family history of diabetes mellitus; Z82.3 Family history of stroke
CPT/HCPCS: 96376 ×3; 96365; 96366; 96375; 99285; 36415; 94640 ×3; 93005; 97161; 97165; 80053; 83605; 83690; 85025 ×2; 81001; 87086; 87077; 87186; 87635; G0378 ×3; J0696 ×3

== ENCOUNTER 2021-02-17 12:38 | Emergency (ER) | payer MEDICARE ==
[2021-02-17] MEDS: SODIUM CHLORIDE 0.9% 500 ML 500 ML IV ONE (13:11)
--- NOTE | 2021-02-17 13:11 | ED ---
Altered Mental Status HPI - General Chief Complaint: Altered Mental Status Stated Complaint: Abd Pain/Headache Time Seen by Provider: 02/17/21 12:49 Source: patient, family, RN notes reviewed Mode of arrival: ambulatory Limitations: no limitations - History of Present Illness Initial Comments: This 89-year-old male presents emergency from with white chief complaint of possible infection. Patient has not felt well over the last couple days he's had some intermittent confusion abdominal pain. Patient reports that this is very consistent with his prior infections including pneumonia, UTIs. Patient was seen in urgent care had a negative urinalysis and there sent emergency from for further workup. He's not had any recent imaging of his brain with complaints of headache. No dysuria no hematuria he's had slight cough with some phlegm. Denies chest pain shortness breath. He states he has minimal abdominal pain. - Related Data Home Medications Medication Instructions Recorded Confirmed Fluticasone/Salmeterol [Advair 1 puff INHALATION RT-BID 02/28/14 02/17/21 250-50 Diskus] Apixaban [Eliquis] 5 mg PO BID 05/20/17 02/17/21 Fluticasone Nasal [place] [Flonase 1 spray EA NOSTRIL BID PRN 07/08/20 02/17/21 Nasal [place]] Metoprolol Succinate [Toprol XL] 25 mg PO HS 07/08/20 02/17/21 L.acidoph,Paracasei, B.lactis 1 cap PO DAILY 02/17/21 02/17/21 [Probiotic] Loratadine [Claritin] 10 mg PO DAILY PRN 02/17/21 02/17/21 Allergies Allergy/AdvReac Type Severity Reaction Status Date / Time codeine AdvReac Intermediate Hallucinati Verified 02/17/21 13:57 ons atorvastatin [From Lipitor] AdvReac Nausea & Verified 02/17/21 13:57 Vomiting prednisone AdvReac agitated Verified 02/17/21 13:57 Review of Systems ROS Statement: Those systems with pertinent positive or pertinent negative responses have been documented in the HPI. ROS Other: All systems not noted in ROS Statement are negative. 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 History of Any Multi-Drug Resistant Organisms: None Reported Past Surgical History: Appendectomy, Cardiac Ablation, Cholecystectomy, Heart Catheterization, Pacemaker Additional Past Surgical History / Comment(s): 08/30/20 TURP, laparotomy for ulcer repair/partial gastrectomy, hemorrhoidectomy, colonoscopies, EGDs, bilateral cataract removals, skin cancer removed from face, occipital nerve injections. Past Anesthesia/Blood Transfusion Reactions: No Reported Reaction Type of Cardiac Device: Permanent Pacemaker Device Placement Date:: 2013 Past Psychological History: No Psychological Hx Reported Smoking Status: Former smoker Past Alcohol Use History: None Reported Past Drug Use History: None Reported - Past Family History Father Family Medical History: CVA/TIA Additional Family Medical History / Comment(s): Father had TIAs. He passed at t he age of 82 yrs. Mother Family Medical History: Diabetes Mellitus Additional Family Medical History / Comment(s): AT AGE 76. General Exam Limitations: no limitations General appearance: alert, in no apparent distress Head exam: Present: atraumatic, normocephalic, normal inspection Eye exam: Present: normal appearance, PERRL, EOMI. Absent: scleral icterus, conjunctival injection, periorbital swelling Neck exam: Present: normal inspection, full ROM. Absent: tenderness, meningismus, lymphadenopathy Respiratory exam: Present: normal lung sounds bilaterally. Absent: respiratory distress, wheezes, rales, rhonchi, stridor Cardiovascular Exam: Present: regular rate, normal rhythm, normal heart sounds. Absent: systolic murmur, diastolic murmur, rubs, gallop, clicks GI/Abdominal exam: Present: soft, tenderness, normal bowel sounds. Absent: distended, guarding, rebound, rigid Neurological exam: Present: alert, oriented X3, CN II-XII intact Skin exam: Present: warm, dry, intact, normal color. Absent: rash Course Vital Signs 02/17/21 02/17/21 13:16 14:00 Temperature 98.0 F Pulse Rate 78 59 L Respiratory 16 18 Rate Blood Pressure 138/60 139/59 O2 Sat by Pulse 97 97 Oximetry Medical Decision Making - Medical Decision Making 89-year-old presented for what reports is mild confusion, concern for urinary tract infection. Complete workup at this time without any significant acute changes.. states that he is greatly improved after some IV fluids and his been on the heat over the last several days. Patient feels comfortable has no complaints at this time. Patient and offered admission or discharge at this time return for any worsening symptoms. - Lab Data Result diagrams: 02/17/21 13:08 02/17/21 13:08 Lab Results 02/17/21 02/17/21 02/17/21 Range/Units 13:08 13:08 13:08 WBC 4.0 (3.8-10.6) k/uL RBC 4.71 (4.30-5.90) m/uL Hgb 14.2 (13.0-17.5) gm/dL Hct 42.0 (39.0-53.0) % MCV 89.3 (80.0-100.0) fL MCH 30.2 (25.0-35.0) pg MCHC 33.8 (31.0-37.0) g/dL RDW 13.3 (11.5-15.5) % Plt Count 148 L (150-450) k/uL MPV 7.7 Neutrophils % 61 % Lymphocytes % 23 % Monocytes % 8 % Eosinophils % 5 % Basophils % 0 % Neutrophils # 2.4 (1.3-7.7) k/uL Lymphocytes # 0.9 L (1.0-4.8) k/uL Monocytes # 0.3 (0-1.0) k/uL Eosinophils # 0.2 (0-0.7) k/uL Basophils # 0.0 (0-0.2) k/uL Sodium 140 (137-145) mmol/L Potassium 4.2 (3.5-5.1) mmol/L Chloride 108 H (98-107) mmol/L Carbon Dioxide 24 (22-30) mmol/L Anion Gap 8 mmol/L BUN 17 (9-20) mg/dL Creatinine 0.74 (0.66-1.25) mg/dL Est GFR (CKD-EPI)AfAm >90 (>60 ml/min/1.73 sqM) Est GFR (CKD-EPI)NonAf 82 (>60 ml/min/1.73 sqM) Glucose 106 H (74-99) mg/dL Plasma Lactic Acid Alphonse 1.4 (0.7-2.0) mmol/L Calcium 9.8 (8.4-10.2) mg/dL Total Bilirubin 1.5 H (0.2-1.3) mg/dL AST 36 (17-59) U/L ALT 19 (4-49) U/L Alkaline Phosphatase 77 (38-126) U/L Troponin I (0.000-0.034) ng/mL Total Protein 7.0 (6.3-8.2) g/dL Albumin 4.1 (3.5-5.0) g/dL Urine Color Urine Appearance (Clear) Urine pH (5.0-8.0) Ur Specific Basco (1.001-1.035) Urine Protein (Negative) Urine Glucose (UA) (Negative) Urine Ketones (Negative) Urine Blood (Negative) Urine Nitrite (Negative) Urine Bilirubin (Negative) Urine Urobilinogen (<2.0) mg/dL Ur Leukocyte Esterase (Negative) 02/17/21 02/17/21 Range/Units 13:08 13:13 WBC (3.8-10.6) k/uL RBC (4.30-5.90) m/uL Hgb (13.0-17.5) gm/dL Hct (39.0-53.0) % MCV (80.0-100.0) fL MCH (25.0-35.0) pg MCHC (31.0-37.0) g/dL RDW (11.5-15.5) % Plt Count (150-450) k/uL MPV Neutrophils % % Lymphocytes % % Monocytes % % Eosinophils % % Basophils % % Neutrophils # (1.3-7.7) k/uL Lymphocytes # (1.0-4.8) k/uL Monocytes # (0-1.0) k/uL Eosinophils # (0-0.7) k/uL Basophils # (0-0.2) k/uL Sodium (137-145) mmol/L Potassium (3.5-5.1) mmol/L Chloride (98-107) mmol/L Carbon Dioxide (22-30) mmol/L Anion Gap mmol/L BUN (9-20) mg/dL Creatinine (0.66-1.25) mg/dL Est GFR (CKD-EPI)AfAm (>60 ml/min/1.73 sqM) Est GFR (CKD-EPI)NonAf (>60 ml/min/1.73 sqM) Glucose (74-99) mg/dL Plasma Lactic Acid Alphonse (0.7-2.0) mmol/L Calcium (8.4-10.2) mg/dL Total Bilirubin (0.2-1.3) mg/dL AST (17-59) U/L ALT (4-49) U/L Alkaline Phosphatase (38-126) U/L Troponin I <0.012 (0.000-0.034) ng/mL Total Protein (6.3-8.2) g/dL Albumin (3.5-5.0) g/dL Urine Color Light Yellow Urine Appearance Clear (Clear) Urine pH 7.0 (5.0-8.0) Ur Specific Basco 1.004 (1.001-1.035) Urine Protein Negative (Negative) Urine Glucose (UA) Negative (Negative) Urine Ketones Negative (Negative) Urine Blood Negative (Negative) Urine Nitrite Negative (Negative) Urine Bilirubin Negative (Negative) Urine Urobilinogen <2.0 (<2.0) mg/dL Ur Leukocyte Esterase Negative (Negative) Disposition Clinical Impression: Dehydration, Abdominal pain Disposition: HOME SELF-CARE Condition: Stable Instructions (If sedation given, give patient instructions): Abdominal Pain (ED) Additional Instructions: Please return to the Emergency Department if symptoms worsen or any other concerns. Is patient prescribed a controlled substance at d/c from ED?: No Referrals: Francie Quiñones DO [Primary Care Provider] - 1-2 days Time of Disposition: 15:30
[2021-02-17 13:16] VITALS: TEMP 98
[2021-02-17 13:25] LABS: Basophils % (A) 0 %; Eosinophils # (A) 0.2 k/uL (0-0.7); Eosinophils % (A) 5 %; HGB 14.2 gm/dL (13.0-17.5); Lymphocytes # (A) 0.9 k/uL (1.0-4.8); Lymphocytes % (A) 23 %; MCH 30.2 pg (25.0-35.0); MCHC 33.8 g/dL (31.0-37.0); MCV 89.3 fL (80.0-100.0); Mean Platelet Volume 7.7; Monocytes # (A) 0.3 k/uL (0-1.0); Monocytes % (A) 8 %; Neutrophils # (A) 2.4 k/uL (1.3-7.7); Neutrophils % (A) 61 %; Platelet Count 148 k/uL (150-450); RBC 4.71 m/uL (4.30-5.90); RDW 13.3 % (11.5-15.5)
[2021-02-17 13:29] LABS: Appearance,Urine Clear (Clear); Bilirubin,Urine Negative (Negative); Blood,Urine Negative (Negative); Color,Urine Light Yellow; Glucose,Urine (UA) Negative (Negative); Ketones,Urine Negative (Negative); Leukocyte Esterase,Urine Negative (Negative); Nitrite,Urine Negative (Negative); Protein,Urine Negative (Negative); Specific Gravity,Urine 1.004 (1.001-1.035); Urobilinogen,Urine <2.0 mg/dL (<2.0)
[2021-02-17 13:39] LABS: ALT 19 U/L (4-49); AST 36 U/L (17-59); African American GFR (CKD) >90 (>60 ml/min/1.73 sqM); Albumin 4.1 g/dL (3.5-5.0); Alkaline Phosphatase 77 U/L (38-126); Anion Gap 8 mmol/L; Blood Urea Nitrogen 17 mg/dL (9-20); Calcium 9.8 mg/dL (8.4-10.2); Carbon Dioxide 24 mmol/L (22-30); Chloride 108 mmol/L (98-107); Glucose 106 mg/dL (74-99); Non-African American GFR(CKD) 82 (>60 ml/min/1.73 sqM); Potassium 4.2 mmol/L (3.5-5.1); Sodium 140 mmol/L (137-145); Total Bilirubin 1.5 mg/dL (0.2-1.3)
--- NOTE | 2021-02-17 13:40 | CT ---
EXAMINATION TYPE: CT brain wo con DATE OF EXAM: 02/17/2021 COMPARISON: 07/08/2012 HISTORY: Altered mental status, confusion since CT DLP: 1094.4 mGycm Automated exposure control for dose reduction was used. FINDINGS: There is diffuse cerebral cortical atrophy. There is moderate patchy hypodensity in the periventricul ar white matter. There is mucosal thickening in the frontal and anterior ethmoid sinuses. There is no midline shift. There is no acute intracranial hemorrhage. Calvarium appears intact. Calcification th e basal ganglia bilaterally. Changes of chronic sinusitis noted. Orbits are symmetric. IMPRESSION: DEGENERATIVE AND NONSPECIFIC WHITE MATTER CHANGES MOST TYPICAL REMOTE ISCHEMIA.
--- NOTE | 2021-02-17 13:53 | XR ---
EXAMINATION TYPE: XR chest 2V DATE OF EXAM: 02/17/2021 COMPARISON: 07/09/2020 TECHNIQUE: PA and lateral views submitted. HISTORY: Confusion FINDINGS: The lungs are clear and there is no pneumothorax, pleural effusion, or focal pneumonia. Hyperinflat ion compatible COPD. Coarsened interstitium could be associated with chronic interstitial lung diseas e. Cardiac device noted. No sizable pneumothorax. Diffuse osteopenia and arthropathy of the shoulders . Degenerative changes of the spine. Previous vertebral plasty suggested near the thoracolumbar junct ion. IMPRESSION: 1. COPD correlate for chronic interstitial lung disease..
[2021-02-17 14:04] VITALS: RESP 18
--- NOTE | 2021-02-17 15:08 | CT ---
EXAMINATION TYPE: CT abdomen pelvis w con DATE OF EXAM: 02/17/2021 COMPARISON: 02/08/2018 HISTORY: abdominal pain CT DLP: 725.3 mGycm Automated exposure control for dose reduction was used. CONTRAST: Performed with IV Contrast, patient injected with 100 mL of Isovue 300. Images obtained from the diaphragm to the floor the pelvis with IV contrast. Lung bases are clear of consolidation. There are some interstitial infiltrate left lower lobe. There is no pleural effusion. Heart appears enlarged. There is no pericardial effusion. There is dilated biliary tree. Intrahepatic bile ducts are dilated and slightly increased compared to old exam. Gallbladder appears absent. Common bile duct is 10 mm. Spleen is intact. There is no evide nce of pancreatic mass. There is no adrenal mass. Kidneys show satisfactory contrast opacification. There is no hydronephrosi s. Delayed images show normal renal excretion. There is 1 cm cortical cyst anterior left kidney. Ther e is no retroperitoneal adenopathy. Abdominal aorta is atheromatous. The bladder distends smoothly. P rostate measures 4.6 cm. There is 6 mm prostate calcification. There is no inguinal hernia. There is no free fluid in the pelvis. There is 3 cm elongated calcific type density within the cecum. This cou ld be a foreign body. There is no mesenteric edema. There is no ascites or free air. There is no phillip l obstruction. There are sigmoid diverticula. There is vertebroplasty of L1 vertebra which shows 70% compression deformity. There is also compressi on fractures of all of the lumbar vertebra and T12 T11 and T10 up to 35%. The bony pelvis is intact. The hip joints are intact. IMPRESSION: Chronically dilated biliary tree slightly increased compared to old exam. Common bile duct not change d in size. Numerous thoracic and lumbar compression fractures appear slightly worse than last exam. Possible linear foreign body in the cecum. This appears new compared to old exam. Atherosclerotic vascular disease. Sigmoid diverticulosis.
[2021-02-17 15:47] VITALS: BP 142/67; PULSE 63
== END 2021-02-17 15:35 | disposition home or self-care (01) ==
LOC: EC 12:38
DX: E86.0 Dehydration (principal); R10.9 Unspecified abdominal pain; R05 Cough; J44.9 Chronic obstructive pulmonary disease, unspecified; E78.5 Hyperlipidemia, unspecified; I48.91 Unspecified atrial fibrillation; K21.9 Gastro-esophageal reflux disease without esophagitis; Z86.73 Personal history of transient ischemic attack (TIA), and cerebral infarction without residual deficits; Z87.11 Personal history of peptic ulcer disease; Z87.440 Personal history of urinary (tract) infections; Z87.891 Personal history of nicotine dependence; Z79.01 Long term (current) use of anticoagulants; Z79.51 Long term (current) use of inhaled steroids; Z88.8 Allergy status to other drugs, medicaments and biological substances; Z88.5 Allergy status to narcotic agent; Z90.49 Acquired absence of other specified parts of digestive tract; Z90.79 Acquired absence of other genital organ(s); Z95.0 Presence of cardiac pacemaker
CPT/HCPCS: 36415; 93005; 80053; 83605; 84484; 85025; 81003; 71046; 70450; 74177; 99285; Q9967

== ENCOUNTER 2021-03-03 23:59 | Observation (INO) | payer MEDICARE ==
[2021-03-04] MEDS ORDERED: ONDANSETRON 4 MG/2 ML VIAL IVP STA (00:07)
[2021-03-04] MEDS ORDERED: SODIUM CHLORIDE 0.9% 1,000 ML IV STA (00:07)
--- NOTE | 2021-03-04 00:10 | ED ---
Weakness HPI - General Chief complaint: Nausea/Vomiting/Diarrhea Stated complaint: NVD Time Seen by Provider: 03/04/21 00:07 Source: patient, EMS, RN notes reviewed, old records reviewed Mode of arrival: EMS Limitations: no limitations - History of Present Illness Initial comments: This is an 89-year-old male who presents today for evaluation regards to nausea vomiting and weakness. No travel history no sick contacts he does have a history of similar events in the past. Patient has medical history for A. fib high blood pressure high cholesterol recurrent pneumonia. Patient states this point he not feel well family is not feeling himself. MD Complaint: generalized weakness, lack of energy -: week(s) Location: generalized Severity: moderate Severity scale (1-10): 6 Quality: numbness Consistency: intermittent Improves with: none Worsens with: none Context: recent illness, history of similar Associated Symptoms: loss of appetite, nausea/vomiting - Related Data Home Medications Medication Instructions Recorded Confirmed Fluticasone/Salmeterol [Advair 1 puff INHALATION RT-BID 02/28/14 02/17/21 250-50 Diskus] Apixaban [Eliquis] 5 mg PO BID 05/20/17 02/17/21 Fluticasone Nasal [place] [Flonase 1 spray EA NOSTRIL BID PRN 07/08/20 02/17/21 Nasal [place]] Metoprolol Succinate [Toprol XL] 25 mg PO HS 07/08/20 02/17/21 L.acidoph,Paracasei, B.lactis 1 cap PO DAILY 02/17/21 02/17/21 [Probiotic] Loratadine [Claritin] 10 mg PO DAILY PRN 02/17/21 02/17/21 Allergies Allergy/AdvReac Type Severity Reaction Status Date / Time codeine AdvReac Intermediate Hallucinati Verified 02/17/21 13:57 ons atorvastatin [From Lipitor] AdvReac Nausea & Verified 02/17/21 13:57 Vomiting prednisone AdvReac agitated Verified 02/17/21 13:57 Review of Systems ROS Statement: Those systems with pertinent positive or pertinent negative responses have been documented in the HPI. ROS Other: All systems not noted in ROS Statement are negative. 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 History of Any Multi-Drug Resistant Organisms: None Reported Past Surgical History: Appendectomy, Cardiac Ablation, Cholecystectomy, Heart Catheterization, Pacemaker Additional Past Surgical History / Comment(s): 08/30/20 TURP, laparotomy for ulcer repair/partial gastrectomy, hemorrhoidectomy, colonoscopies, EGDs, bilateral cataract removals, skin cancer removed from face, occipital nerve injections. Past Anesthesia/Blood Transfusion Reactions: No Reported Reaction Type of Cardiac Device: Permanent Pacemaker Device Placement Date:: 2013 Past Psychological History: No Psychological Hx Reported Smoking Status: Former smoker Past Alcohol Use History: None Reported Past Drug Use History: None Reported - Past Family History Father Family Medical History: CVA/TIA Additional Family Medical History / Comment(s): Father had TIAs. He passed at the age of 82 yrs. Mother Family Medical History: Diabetes Mellitus Additional Family Medical History / Comment(s): AT AGE 76. General Exam Limitations: no limitations General appearance: alert, in no apparent distress Head exam: Present: atraumatic, normocephalic, normal inspection Eye exam: Present: normal appearance, PERRL, EOMI. Absent: scleral icterus, conjunctival injection, periorbital swelling ENT exam: Present: normal exam, mucous membranes moist Neck exam: Present: normal inspection. Absent: tenderness, meningismus, lymphadenopathy Respiratory exam: Present: normal lung sounds bilaterally. Absent: respiratory distress, wheezes, rales, rhonchi, stridor Cardiovascular Exam: Present: regular rate, normal rhythm, normal heart sounds. Absent: systolic murmur, diastolic murmur, rubs, gallop, clicks GI/Abdominal exam: Present: soft, normal bowel sounds. Absent: distended, te nderness, guarding, rebound, rigid Extremities exam: Present: normal inspection, full ROM, normal capillary refill. Absent: tenderness, pedal edema, joint swelling, calf tenderness Back exam: Present: normal inspection Neurological exam: Present: alert, oriented X3, CN II-XII intact Psychiatric exam: Present: normal affect, normal mood Skin exam: Present: warm, dry, intact, normal color. Absent: rash Course Vital Signs 03/04/21 00:00 Temperature 97.9 F Pulse Rate 88 Respiratory 16 Rate Blood Pressure 156/88 O2 Sat by Pulse 95 Oximetry - Reevaluation(s) Reevaluation #1: 03/04/21 03:04 Medical record is reviewed Reevaluation #2: 03/04/21 03:04 Patient symptoms are not improved needing pain medication Reevaluation #3: 03/04/21 03:04 Patient is informed results and questions answered, does not feel well - Consultations Consultation #1: Spoke with em who agree for admission EKG Findings - EKG Comments: EKG Findings:: EKG shows sinus rhythm 88 FL 176 QRS 82 QTC 476 Medical Decision Making - Medical Decision Making 89 male to the ER today for evaluation of nausea vomiting diarrhea as well as occasional dizziness and weakness. Patient has multiple ER visits for same has felt outpatient treatment patient will be admitted for symptom management - Lab Data Result diagrams: 03/04/21 00:07 03/04/21 00:07 Lab Results 03/04/21 03/04/21 03/04/21 Range/Units 00:07 00:07 00:07 WBC 3.7 L (3.8-10.6) k/uL RBC 4.19 L (4.30-5.90) m/uL Hgb 12.9 L (13.0-17.5) gm/dL Hct 37.2 L (39.0-53.0) % MCV 88.7 (80.0-100.0) fL MCH 30.7 (25.0-35.0) pg MCHC 34.6 (31.0-37.0) g/dL RDW 13.8 (11.5-15.5) % Plt Count 118 L (150-450) k/uL MPV 8.4 Neutrophils % (Manual) 50 % Lymphocytes % (Manual) 31 % Monocytes % (Manual) 11 % Eosinophils % (Manual) 8 % Neutrophils # (Manual) 1.85 (1.3-7.7) k/uL Lymphocytes # (Manual) 1.15 (1.0-4.8) k/uL Monocytes # (Manual) 0.41 (0-1.0) k/uL Eosinophils # (Manual) 0.30 (0-0.7) k/uL Nucleated RBCs 0 (0-0) /100 WBC Manual Slide Review Performed PT 11.2 (9.0-12.0) sec INR 1.1 (<1.2) APTT 23.7 (22.0-30.0) sec Sodium 138 (137-145) mmol/L Potassium 4.6 (3.5-5.1) mmol/L Chloride 107 (98-107) mmol/L Carbon Dioxide 26 (22-30) mmol/L Anion Gap 5 mmol/L BUN 23 H (9-20) mg/dL Creatinine 0.98 (0.66-1.25) mg/dL Est GFR (CKD-EPI)AfAm 79 (>60 ml/min/1.73 sqM) Est GFR (CKD-EPI)NonAf 69 (>60 ml/min/1.73 sqM) Glucose 141 H (74-99) mg/dL Plasma Lactic Acid Alphonse (0.7-2.0) mmol/L Calcium 9.4 (8.4-10.2) mg/dL Phosphorus 2.3 L (2.5-4.5) mg/dL Magnesium 2.3 (1.6-2.3) mg/dL Total Bilirubin 0.8 (0.2-1.3) mg/dL AST 30 (17-59) U/L ALT 17 (4-49) U/L Alkaline Phosphatase 68 (38-126) U/L Creatine Kinase 58 (55-170) U/L Troponin I (0.000-0.034) ng/mL NT-Pro-B Natriuret Pep pg/mL Total Protein 6.3 (6.3-8.2) g/dL Albumin 3.7 (3.5-5.0) g/dL TSH 3.390 (0.465-4.680) mIU/L 03/04/21 03/04/21 03/04/21 Range/Units 00:07 00:07 00:07 WBC (3.8-10.6) k/uL RBC (4.30-5.90) m/uL Hgb (13.0-17.5) gm/dL Hct (39.0-53.0) % MCV (80.0-100.0) fL MCH (25.0-35.0) pg MCHC (31.0-37.0) g/dL RDW (11.5-15.5) % Plt Count (150-450) k/uL MPV Neutrophils % (Manual) % Lymphocytes % (Manual) % Monocytes % (Manual) % Eosinophils % (Manual) % Neutrophils # (Manual) (1.3-7.7) k/uL Lymphocytes # (Manual) (1.0-4.8) k/uL Monocytes # (Manual) (0-1.0) k/uL Eosinophils # (Manual) (0-0.7) k/uL Nucleated RBCs (0-0) /100 WBC Manual Slide Review PT (9.0-12.0) sec INR (<1.2) APTT (22.0-30.0) sec Sodium (137-145) mmol/L Potassium (3.5-5.1) mmol/L Chloride (98-107) mmol/L Carbon Dioxide (22-30) mmol/L Anion Gap mmol/L BUN (9-20) mg/dL Creatinine (0.66-1.25) mg/dL Est GFR (CKD-EPI)AfAm (>60 ml/min/1.73 sqM) Est GFR (CKD-EPI)NonAf (>60 ml/min/1.73 sqM) Glucose (74-99) mg/dL Plasma Lactic Acid Alphonse 1.7 (0.7-2.0) mmol/L Calcium (8.4-10.2) mg/dL Phosphorus (2.5-4.5) mg/dL Magnesium (1.6-2.3) mg/dL Total Bilirubin (0.2-1.3) mg/dL AST (17-59) U/L ALT (4-49) U/L Alkaline Phosphatase (38-126) U/L Creatine Kinase (55-170) U/L Troponin I <0.012 (0.000-0.034) ng/mL NT-Pro-B Natriuret Pep 409 pg/mL Total Protein (6.3-8.2) g/dL Albumin (3.5-5.0) g/dL TSH (0.465-4.680) mIU/L Disposition Clinical Impression: Dehydration, Dizziness, Nausea & vomiting, Weakness, Gastritis Disposition: ADMITTED IP TO THIS HOSP Condition: Good Is patient prescribed a controlled substance at d/c from ED?: No Referrals: Francie Quiñones DO [Primary Care Provider] - 1-2 days
[2021-03-04] MEDS ORDERED: PROCHLORPERAZINE INJ 10 MG/2 ML VIAL IVP STA (00:19)
[2021-03-04 00:21] LABS: HCT 37.2 % (39.0-53.0); HGB 12.9 gm/dL (13.0-17.5); MCH 30.7 pg (25.0-35.0); MCHC 34.6 g/dL (31.0-37.0); MCV 88.7 fL (80.0-100.0); Mean Platelet Volume 8.4; Platelet Count 118 k/uL (150-450); RBC 4.19 m/uL (4.30-5.90); RDW 13.8 % (11.5-15.5); WBC 3.7 k/uL (3.8-10.6)
[2021-03-04 00:35] LABS: INR 1.1 (<1.2); Partial Thromboplastin Time 23.7 sec (22.0-30.0); Prothrombin Time 11.2 sec (9.0-12.0)
[2021-03-04 00:40] LABS: Albumin 3.7 g/dL (3.5-5.0); Calcium 9.4 mg/dL (8.4-10.2); Magnesium 2.3 mg/dL (1.6-2.3); Phosphorus 2.3 mg/dL (2.5-4.5); Potassium 4.6 mmol/L (3.5-5.1); Total Bilirubin 0.8 mg/dL (0.2-1.3); Total Protein 6.3 g/dL (6.3-8.2)
[2021-03-04] MEDS ORDERED: MORPHINE SULFATE 4 MG/ML SYRINGE IVP STA (01:00)
[2021-03-04 01:21] LABS: Lymphocytes # (M) 1.15 k/uL (1.0-4.8); Monocytes # (M) 0.41 k/uL (0-1.0); Neutrophils # (M) 1.85 k/uL (1.3-7.7); Neutrophils % (M) 50 %; Nucleated Red Blood Cells 0 /100 WBC (0-0); Total Cells Counted 100
[2021-03-04] MEDS ORDERED: MORPHINE SULFATE 4 MG/ML SYRINGE IV PRN (02:58)
[2021-03-04] MEDS ORDERED: ONDANSETRON 4 MG/2 ML VIAL IVP PRN (02:58)
[2021-03-04] MEDS ORDERED: NALOXONE 0.4 MG/ML 1 ML VIAL IV PRN (02:58)
[2021-03-04] MEDS: SODIUM CHLORIDE 0.9% 1,000 ML IV SCH ×3 (03:20→16:29)
[2021-03-04 03:37] LABS: Appearance,Urine Clear (Clear); Bilirubin,Urine Negative (Negative); Blood,Urine Negative (Negative); Color,Urine Light Yellow; Glucose,Urine (UA) Negative (Negative); Ketones,Urine Negative (Negative); Leukocyte Esterase,Urine Negative (Negative); Nitrite,Urine Negative (Negative); Protein,Urine Negative (Negative); Specific Gravity,Urine 1.017 (1.001-1.035); Urobilinogen,Urine <2.0 mg/dL (<2.0)
[2021-03-04] MEDS: PANTOPRAZOLE 40 MG/10 ML VIAL IVP SCH ×2 (10:35→22:07)
--- NOTE | 2021-03-04 11:04 | P.HPIM ---
History of Present Illness 89-year-old male came in with compensative nausea vomiting and generalized weakness. I'm unable to get much of the history from the patient patient is probably alert oriented 0-1. History was obtained from mostly from the nursing staff. Patient does point his pain to epigastric area when asked about abdominal pain patient cannot further elaborate. Patient had history of peptic ulcer disease for which patient had surgery in the past patient was treated for pneumonia in month of November this year. Patient appears to have dementia. 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 Patient doesn't have any fever doesn't have any leukocytosis. Creatinine is less than 1. Patient says his not feeling well. Patient was given morphine in the ER after which patient got confused quite a bit for which patient received Narcan REVIEW OF SYSTEMS: Unable to obtain due to his clinical condition PHYSICAL EXAMINATION: GENERAL: The patient is alert and oriented x1 more confused, not in any acute distress. Well developed, well nourished. HEENT: Pupils are round and equally reacting to light. EOMI. No scleral icterus. No conjunctival pallor. Normocephalic, atraumatic. No pharyngeal erythema. No thyromegaly. CARDIOVASCULAR: S1 and S2 present. No murmurs, rubs, or gallops. PULMONARY: Chest is clear to auscultation, no wheezing or crackles. ABDOMEN: Soft, nontender, nondistended, normoactive bowel sounds. No palpable organomegaly. MUSCULOSKELETAL: No joint swelling or deformity. EXTREMITIES: No cyanosis, clubbing, or pedal edema. NEUROLOGICAL: Gross neurological examination did not reveal any focal deficits. Patient is significantly confused. SKIN: No rashes. Assessment and plan -Nausea vomiting abdominal discomfort: Peptic probably peptic ulcer disease again, patient will be continued on the Zofran. Patient will be started on Protonix. Discontinue morphine. Abdominal x-ray will be obtained if that's ne gative in a intravenous contrast CT as patient cannot tolerate by mouth diet -Altered mental status, confusion secondary to toxic encephalopathy from morphine. Patient does have baseline dementia which is of moderate to severe did -Atrial fibrillation presently rate controlled probably paroxysmal A. fib continue with anti-correlation and rate control medications -CVA TIA in the past -Pneumonia -Benign prostatic hypertrophy -History of occipital neuralgia DVT prophylaxis:On elquis Past Medical History Past Medical History: Unable to Obtain, Atrial Fibrillation, Cancer, COPD, CVA/TIA, GERD/Reflux, Hyperlipidemia, Pneumonia Additional Past Medical History / Comment(s): 06/2020 bacterial pneumonia/encephalopathy/urinary retention pt states d/t a medication, UTI, BPH/surgery, TIA, occipital neuralgia, PUD with surgery, occasional dysphagia, hypotension, hyperlipidemia but pt does not tolerate statins, SSS/AV node disease, 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 History of Any Multi-Drug Resistant Organisms: None Reported Past Surgical History: Appendectomy, Cardiac Ablation, Cholecystectomy, Heart Catheterization, Pacemaker Additional Past Surgical History / Comment(s): 08/30/20 TURP, laparotomy for ulcer repair/partial gastrectomy, hemorrhoidectomy, colonoscopies, EGDs, bilateral cataract removals, skin cancer removed from face, occipital nerve injections. Past Anesthesia/Blood Transfusion Reactions: No Reported Reaction Type of Cardiac Device: Permanent Pacemaker Device Placement Date:: 2013 Past Psychological History: No Psychological Hx Reported Additional Psychological History / Comment(s): Pt resides with his spouse. He uses a cane and walker when out. He can drive, spouse does most of the driving. Spouse manages his medications. Smoking Status: Former smoker Past Alcohol Use History: None Reported Additional Past Alcohol Use History / Comment(s): STARTED SMOKING AT AGE 22, SMOKED 1 PPD. HAD QUIT ONCE FOR 1O YEARS THEN RESTARTED AFTER OF SON, QUIT IN 1999. Past Drug Use History: None Reported - Past Family History Father Family Medical History: CVA/TIA Additional Family Medical History / Comment(s): Father had TIAs. He passed at the age of 82 yrs. Mother Family Medical History: Diabetes Mellitus Additional Family Medical History / Comment(s): AT AGE 76. Medications and Allergies Home Medications Medication Instructions Recorded Confirmed Type Fluticasone/Salmeterol [Advair 1 puff INHALATION RT-BID 02/28/14 03/04/21 History 250-50 Diskus] Apixaban [Eliquis] 5 mg PO BID 05/20/17 03/04/21 History Metoprolol Succinate [Toprol XL] 25 mg PO HS 07/08/20 03/04/21 History Acetaminophen Tab [Tylenol] 650 mg PO Q6H PRN 03/04/21 03/04/21 History Mag Hydrox/Aluminum Hyd/Simeth 30 ml PO DAILY PRN 03/04/21 03/04/21 History [Mylanta Maximum Strength Liq] Omeprazole 20 mg PO DAILY 03/04/21 03/04/21 History Sucralfate [Carafate] 1 gm PO TID 03/04/21 03/04/21 History Allergies Allergy/AdvReac Type Severity Reaction Status Date / Time codeine AdvReac Intermediate Hallucinati Verified 03/04/21 10:09 ons atorvastatin [From Lipitor] AdvReac Nausea & Verified 03/04/21 10:09 Vomiting prednisone AdvReac agitated Verified 03/04/21 10:09 Physical Exam Vitals: Vital Signs Temp Pulse Pulse Resp BP BP Pulse Ox 03/04/21 07:00 97.4 F L 96 20 167/77 91 L 03/04/21 04:14 8 L 03/04/21 03:44 97.6 F 74 8 L 170/74 97 03/04/21 03:15 97.6 F 75 16 140/72 93 L 03/04/21 00:00 97.9 F 88 16 156/88 95 Intake and Output 03/03/21 03/04/21 03/04/21 22:59 06:59 14:59 Other: Weight 74.843 kg Results CBC & Chem 7: 03/04/21 00:07 03/04/21 00:07 Labs: Abnormal Lab Results - Last 24 Hours (Table) 03/04/21 03/04/21 03/04/21 Range/Units 00:07 00:07 03:21 WBC 3.7 L (3.8-10.6) k/uL RBC 4.19 L (4.30-5.90) m/uL Hgb 12.9 L (13.0-17.5) gm/dL Hct 37.2 L (39.0-53.0) % Plt Count 118 L (150-450) k/uL BUN 23 H (9-20) mg/dL Glucose 141 H (74-99) mg/dL Phosphorus 2.3 L (2.5-4.5) mg/dL Ammonia 104 H (<30) umol/L Thrombosis Risk Factor Assmnt - Choose All That Apply Each Risk Factor Represents 3 Points: Age 75 years or older Thrombosis Risk Factor Assessment Total Risk Factor Score: 3 Thrombosis Risk Factor Assessment Level: Moderate Risk
[2021-03-04] MEDS: ACETAMINOPHEN TAB 325 MG TAB PO PRN (13:35)
--- NOTE | 2021-03-04 14:23 | XR ---
EXAMINATION TYPE: XR abdomen acute w cxr DATE OF EXAM: 03/04/2021 COMPARISON: NONE HISTORY: 89 years Male. STUDY INDICATION GIVEN: Vomiting . TECHNIQUE: 2 views of the abdomen FINDINGS AND IMPRESSION: No bowel obstruction. No evidence of pneumoperitoneum. Moderate amount of stool seen in the colon. Generalized osteopenia. No acute osseous abnormality. Vertebroplasty changes. Mild cardiomegaly with mild pulmonary vascular congestion. Dual lead cardiac pacemaker. Lung base ate lectasis. No pneumothorax or pleural effusion.
[2021-03-04] MEDS: SUCRALFATE 1 GM TAB PO SCH ×2 (16:29→22:07)
[2021-03-04] MEDS: SYMBICORT 80-4.5 MCG INHALER INHALATION SCH (19:41)
[2021-03-04] MEDS: APIXABAN 5 MG TAB PO SCH (22:07)
[2021-03-04] MEDS: METOPROLOL SUCCINATE (ER) 25 MG TAB.ER.24H PO SCH (22:07)
[2021-03-05] MEDS: SODIUM CHLORIDE 0.9% 1,000 ML IV SCH ×3 (02:47→13:39)
[2021-03-05] MEDS: PANTOPRAZOLE 40 MG/10 ML VIAL IVP SCH ×2 (08:13→21:25)
[2021-03-05] MEDS: SUCRALFATE 1 GM TAB PO SCH ×3 (08:13→21:25)
[2021-03-05] MEDS: APIXABAN 5 MG TAB PO SCH (08:13)
[2021-03-05] MEDS: SYMBICORT 80-4.5 MCG INHALER INHALATION SCH ×2 (08:57→20:28)
[2021-03-05 08:58] LABS: Basophils # (A) 0.02 X 10*3/uL (0.00-0.10); Basophils % (A) 0.4 %; Eosinophils # (A) 0.22 X 10*3/uL (0.04-0.35); Eosinophils % (A) 4.7 %; HCT 35.8 % (39.6-50.0); HGB 11.7 g/dL (13.0-17.0); Lymphocytes # (A) 0.96 X 10*3/uL (0.90-5.00); Lymphocytes % (A) 20.4 %; MCH 29.1 pg (27.0-32.0); MCHC 32.7 g/dL (32.0-37.0); MCV 89.1 fL (80.0-97.0); Mean Platelet Volume 10.1 fL (9.5-12.2); Monocytes # (A) 0.67 X 10*3/uL (0.20-1.00); Monocytes % (A) 14.3 %; Neutrophils # (A) 2.82 X 10*3/uL (1.80-7.70); Platelet Count 108 X 10*3/uL (140-440); RBC 4.02 X 10*6/uL (4.40-5.60)
[2021-03-05 09:48] LABS: African American GFR (CKD) 91.8 (60.0-200.0); Albumin 3.7 g/dL (3.80-4.90); Albumin/Globulin Ratio 1.61 (1.60-3.17); Anion Gap 7.8 mmol/L (4.00-12.00); BUN/Creat Ratio 16.25 Ratio (12.00-20.00); Calcium 9.2 mg/dL (8.7-10.3); Carbon Dioxide 27.2 mmol/L (21.6-31.8); Globulin 2.3 g/dL (1.6-3.3); Magnesium 1.8 mg/dL (1.5-2.4); Non-African American GFR(CKD) 79.2 (60.0-200.0); Potassium 4.2 mmol/L (3.5-5.5); Total Bilirubin 1.6 mg/dL (0.3-1.2)
[2021-03-05] MEDS: ACETAMINOPHEN TAB 325 MG TAB PO PRN (12:04)
--- NOTE | 2021-03-05 12:50 | P.PN ---
Subjective 89-year-old male came in with compensative nausea vomiting and generalized weakness. I'm unable to get much of the history from the patient patient is probably alert oriented 0-1. History was obtained from mostly from the nursing staff. Patient does point his pain to epigastric area when asked about abdominal pain patient cannot further elaborate. Patient had history of peptic ulcer disease for which patient had surgery in the past patient was treated for pneumonia in month of November this year. Patient appears to have dementia. 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 Patient doesn't have any fever doesn't have any leukocytosis. Creatinine is less than 1. Patient says his not feeling well. Patient was given morphine in the ER after which patient got confused quite a bit for which patient received Narcan 03/05/2021 The patient is still having some abdominal pain. It appears to be bit better compared to yesterday continue with Protonix will also obtain abdominal CT, consult gastroenterology Patient had abdominal x-ray yesterday which didn't show any significant ileus. Patient mental status is bit better today we will cut down the IV fluids there may be mild pulmonary congestion as per the chest x-ray, patient's options and saturations are actually bit better today Review of systems: Unable to obtain due to his clinical condition All inpatient medications were reviewed and appropriate changes in these medications as dictated in the interval history and assessment and plan. PHYSICAL EXAMINATION: GENERAL: The patient is alert and oriented x2 more confused, not in any acute distress. Well developed, well nourished. HEENT: Pupils are round and equally reacting to light. EOMI. No scleral icterus. No conjunctival pallor. Normocephalic, atraumatic. No pharyngeal erythema. No thyromegaly. CARDIOVASCULAR: S1 and S2 present. No murmurs, rubs, or gallops. PULMONARY: Chest is clear to auscultation, no wheezing or crackles. ABDOMEN: Soft, nontender, nondistended, normoactive bowel sounds. No palpable organomegaly. MUSCULOSKELETAL: No joint swelling or deformity. EXTREMITIES: No cyanosis, clubbing, or pedal edema. NEUROLOGICAL: Gross neurological examination did not reveal any focal deficits. His confusion is better SKIN: No rashes. Assessment and plan -Nausea vomiting abdominal discomfort: Peptic probably peptic ulcer disease again, patient will be continued on the Zofran. Patient will be started on Protonix. Abdominal x-ray show any significant abnormality, CT of the abdomen with contrast will be obtained, gastroneurology will be consulted -Altered mental status, confusion secondary to toxic encephalopathy from morphine resolved at this time. Patient does have baseline dementia which is of moderate to severe did -Atrial fibrillation presently rate controlled probably paroxysmal A. fib continue with anti-correlation and rate control medications -CVA TIA in the past -Pneumonia -Benign prostatic hypertrophy -History of occipital neuralgia DVT prophylaxis:On elquis Objective - Vital Signs Vital signs: Vital Signs Temp 97.6 F 03/05/21 07:00 Pulse 70 03/05/21 08:00 Resp 16 03/05/21 08:00 BP 129/61 03/05/21 07:00 Pulse Ox 96 03/05/21 07:00 Intake & Output 03/04/21 03/05/21 03/05/21 18:59 06:59 18:59 Intake Total 180 Output Total 500 2200 1800 Balance -500 -2200 -1620 Intake: Oral 180 Output: Urine 500 2200 1800 Other: # Voids 2 1 - Labs CBC & Chem 7: 03/05/21 05:26 03/05/21 05:26 Labs: Abnormal Lab Results - Last 24 Hours (Table) 03/05/21 03/05/21 Range/Units 05:26 05:26 RBC 4.02 L (4.40-5.60) X 10*6/uL Hgb 11.7 L (13.0-17.0) g/dL Hct 35.8 L (39.6-50.0) % Plt Count 108 L (140-440) X 10*3/uL Total Bilirubin 1.6 H (0.3-1.2) mg/dL Total Protein 6.0 L (6.2-8.2) g/dL Albumin 3.70 L (3.80-4.90) g/dL
[2021-03-05] MEDS: IOPAMIDOL CONTRAST (ORAL USE) VIAL PO PRN ×2 (13:01→13:43)
--- NOTE | 2021-03-05 15:45 | CT ---
EXAMINATION TYPE: CT abdomen pelvis w con DATE OF EXAM: 03/05/2021 COMPARISON: 02/17/2021 HISTORY: abdominal pain, nausea, vomiting CT DLP: 1039 mGycm CONTRAST: CT scan of the abdomen and pelvis is performed with Oral Contrast and with IV Contrast, patient injec khoa with 100 mL of Isovue 300. FINDINGS: LUNG BASES-: No visible nodule. No infiltrate. LIVER/GB: Hysterectomy changes. Intra and extrahepatic biliary ductal dilatation. No space occupyi ng hepatic lesion. Biliary tree is of normal caliber. PANCREAS: No inflammation. No distinct mass. SPLEEN: No splenic enlargement. No lesion seen. ADRENALS: No nodule. No thickening. KIDNEYS/BLADDER: No hydronephrosis. No nephrolithiasis. No distinct renal mass. Urinary bladder g rossly unremarkable. BOWEL: Normal appendix. Normal bowel caliber. No inflammation. GENITAL ORGANS: No gross abnormality. LYMPH NODES: No greater than 1cm abdominal or pelvic lymph nodes are appreciated. AORTA: No significant abnormality. OSSEOUS STRUCTURES: Chronic compression deformities throughout the lumbar spine. OTHER: No significant additional abnormality is seen. IMPRESSION: 1. No acute process to account for the patient's symptoms.
--- NOTE | 2021-03-05 16:25 | P.CONS ---
History of Present Illness - Reason for Consult Consult date: 03/05/21 Abdominal pain Requesting physician: Bebeto Stevens - Chief Complaint Nausea vomiting and weakness - History of Present Illness This is a pleasant 89-year-old white male who presented to the emergency department for evaluation of nausea, vomiting and weakness. He denies any recent travel or sick contacts. He has a past medical history including atrial fibrillation on Eliquis, hypertension, COPD, GERD, and hyperlipidemia. Patient also is admitting to abdominal pain for the last 2 weeks duration and headache. His states he lost approximately 15 pounds over the last couple weeks. Patient has a history of an ulcer with previous surgery. He had an acute GI series showing moderate amount of stool. He reports that he is having normal bowel movements had one Friday and last night, however states there is small amounts. Admission labs show WBC 4.7, hemoglobin 11.7, hematocrit 35, platelet count 108,000, total bilirubin 0.8, alkaline phosphatase 68, AST 30, ALT 17, ammonia noted at 104. He had repeat LFTs today with an increase in total bilirubin 1.6, alkaline phosphatase 81, AST 33, ALT 23. He he is currently denying any nausea or vomiting, states he still has abdominal pain mostly in the epigastric region. Denies any fevers or chills. states he was diagnosed and treated for pneumonia in June 2020, he then had issues with his prostate . Review of Systems REVIEW OF SYSTEMS: CARDIOPULMONARY: No chest pain or shortness of breath. Gastrointestinal: Diffuse abdominal pain, worsening epigastric region. Nausea and vomiting, improved now. No hematemesis, coffee-ground emesis. No rectal bleeding, or melena. GENITOURINARY: No dysuria or hematuria. MUSCULOSKELETAL: Reports normal range of motion., Joint pain. SKIN: No rashes. No jaundice. ENDOCRINE: No chills, fevers. No excessive weight gain or loss. No polydipsia or polyuria. PSYCHIATRIC: Unremarkable. NEUROLOGY: No change in mental status. Denies dizziness, headache. ENT: Vision unremarkable. CONSTITUTIONAL: 15 pounds over the last couple months duration. No fever, chills, night sweats. 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 History of Any Multi-Drug Resistant Organisms: None Reported Past Surgical History: Appendectomy, Cardiac Ablation, Cholecystectomy, Heart Catheterization, Pacemaker Additional Past Surgical History / Comment(s): 08/30/20 TURP, laparotomy for ulcer repair/partial gastrectomy, hemorrhoidectomy, colonoscopies, EGDs, bilateral cataract removals, skin cancer removed from face, occipital nerve injections. Past Anesthesia/Blood Transfusion Reactions: No Reported Reaction Type of Cardiac Device: Permanent Pacemaker Device Placement Date:: 2013 Past Psychological History: No Psychological Hx Reported Additional Psychological History / Comment(s): Pt resides with his spouse. He uses a cane and walker when out. He can drive, spouse does most of the driving. Spouse manages his medications. Smoking Status: Former smoker Past Alcohol Use History: None Reported Additional Past Alcohol Use History / Comment(s): STARTED SMOKING AT AGE 22, SM OKED 1 PPD. HAD QUIT ONCE FOR 1O YEARS THEN RESTARTED AFTER OF SON, QUIT IN 1999. Past Drug Use History: None Reported - Past Family History Father Family Medical History: CVA/TIA Additional Family Medical History / Comment(s): Father had TIAs. He passed at the age of 82 yrs. Mother Family Medical History: Diabetes Mellitus Additional Family Medical History / Comment(s): AT AGE 76. Medications and Allergies Home Medications Medication Instructions Recorded Confirmed Type Fluticasone/Salmeterol [Advair 1 puff INHALATION RT-BID 02/28/14 03/04/21 History 250-50 Diskus] Apixaban [Eliquis] 5 mg PO BID 05/20/17 03/04/21 History Metoprolol Succinate [Toprol XL] 25 mg PO HS 07/08/20 03/04/21 History Acetaminophen Tab [Tylenol] 650 mg PO Q6H PRN 03/04/21 03/04/21 History Mag Hydrox/Aluminum Hyd/Simeth 30 ml PO DAILY PRN 03/04/21 03/04/21 History [Mylanta Maximum Strength Liq] Omeprazole 20 mg PO DAILY 03/04/21 03/04/21 History Sucralfate [Carafate] 1 gm PO TID 03/04/21 03/04/21 History Allergies Allergy/AdvReac Type Severity Reaction Status Date / Time codeine AdvReac Intermediate Hallucinati Verified 03/04/21 10:09 ons atorvastatin [From Lipitor] AdvReac Nausea & Verified 03/04/21 10:09 Vomiting prednisone AdvReac agitated Verified 03/04/21 10:09 Physical Exam Vitals: Vital Signs Temp Pulse Resp BP Pulse Ox 03/05/21 08:00 70 16 03/05/21 07:00 97.6 F 70 16 129/61 96 03/05/21 00:56 98.4 F 81 14 147/69 94 L 03/04/21 19:26 98.1 F 84 14 146/71 95 03/04/21 15:00 97.9 F 93 16 139/64 92 L Intake and Output 03/04/21 03/05/21 03/05/21 22:59 06:59 14:59 Intake Total 180 Output Total 800 1900 1800 Balance -800 -1900 -1620 Intake: Oral 180 Output: Urine 800 1900 1800 Other: # Voids 1 1 General appearance: The patient is alert, oriented, appears in no acute distress. HET: Head is normocephalic and atraumatic. Conjunctiva pink. Sclera anicteric. Neck: Supple without lymphadenopathy. Trachea midline. Heart: S1 S2. Regular rate and rhythm. Lungs: Clear to auscultation. Abdomen: Soft, epigastric tenderness, nondistended with bowel sounds. No guarding or rigidity. Skin: No rashes. No jaundice. Extremities: Normal skin color and turgor. No pedal edema. Neurological: No focal deficits. Alert and oriented 3.. Results CBC & Chem 7: 03/05/21 05:26 03/05/21 05:26 Labs: Abnormal Lab Results - Last 24 Hours (Table) 03/05/21 03/05/21 Range/Units 05:26 05:26 RBC 4.02 L (4.40-5.60) X 10*6/uL Hgb 11.7 L (13.0-17.0) g/dL Hct 35.8 L (39.6-50.0) % Plt Count 108 L (140-440) X 10*3/uL Total Bilirubin 1.6 H (0.3-1.2) mg/dL Total Protein 6.0 L (6.2-8.2) g/dL Albumin 3.70 L (3.80-4.90) g/dL Comments: Acute GI series with findings of no bowel obstruction. No evidence of pneumoperitoneum. Moderate amount of stool seen in the colon. Generalized osteopenia. No acute osseous abnormality. Vertebral plasty changes. Mild cardiomegaly with mild pulmonary vascular congestion. Dual lead cardiac pacemaker. Lung base atelectasis. No pneumothorax or pleural effusion. CT of the abdomen and pelvis shows no acute process to account for the patient's symptoms Assessment and Plan (1) Abdominal pain Narrative/Plan: 89-year-old male who presented to the emergency department with complaints of nausea vomiting and abdominal pain. Patient has a past medical history of ulcer which he underwent surgery and a partial gastrectomy. Initial workup in the emergency department he underwent an acute GI series showing moderate amount of stool. Patient states he feels his bowel movements have been normal which she has gone day and yesterday, however does report only small amounts. Admit ting labs overall unremarkable. However there was a noted ammonia of 104. His repeat LFTs today show an increase in his total bilirubin at 1.6, alkaline phosphatase 81, AST 33, ALT 23. He is no longer having any further nausea and vomiting at this time, patient was scheduled to go down for CT of abdomen which showed no significant abnormality to account for patient's symptoms. Possible etiologies could include ulcer as patient has previous history, gastritis, esophagitis, or other etiologies. Initial plan was to proceed with EGD tomorrow, however patient is on Ahlquist last dose was taken this morning. Will hold Eliquis and schedule EGD for Friday. Current Visit: No Status: Acute Code(s): R10.9 - UNSPECIFIED ABDOMINAL PAIN SNOMED Code(s): 67231675 (2) Nausea & vomiting Narrative/Plan: Continue with antibiotics, Protonix twice a day Current Visit: Yes Status: Acute Code(s): R11.2 - NAUSEA WITH VOMITING, UNSPECIFIED SNOMED Code(s): 00113286 Plan: 1. Continue symptomatic and supportive care 2. Antiemetics as needed 3. Protonix 40 mg IV twice a day 4. Diet as tolerated 5. CT of abdomen/pelvis reviewed no acute findings 6. Acute GI series showing moderate amount of stool in colon, will add MiraLAX daily 7. Hold Eliquis 8. We'll plan to proceed with EGD on Friday Thank you for this consultation, we will continue to follow. Dr. Jose Olsen I agree with the dictator's note, documented as a scribe by Prudence Morse.
[2021-03-05] MEDS: METOPROLOL SUCCINATE (ER) 25 MG TAB.ER.24H PO SCH (21:24)
[2021-03-06] MEDS: SODIUM CHLORIDE 0.9% 1,000 ML IV SCH ×2 (01:47→21:18)
[2021-03-06] MEDS: HEPARIN SODIUM,PORCINE/PF 5,000 UNIT/0.5 ML SYRINGE SQ SCH ×2 (08:41→21:18)
[2021-03-06] MEDS: PANTOPRAZOLE 40 MG/10 ML VIAL IVP SCH ×2 (08:41→21:18)
[2021-03-06] MEDS: SUCRALFATE 1 GM TAB PO SCH ×3 (08:41→21:18)
[2021-03-06] MEDS: SYMBICORT 80-4.5 MCG INHALER INHALATION SCH ×2 (08:52→20:50)
[2021-03-06 10:52] LABS: HCT 35.9 % (39.6-50.0); HGB 11.9 g/dL (13.0-17.0); MCH 29.2 pg (27.0-32.0); MCHC 33.1 g/dL (32.0-37.0); MCV 88.2 fL (80.0-97.0); Mean Platelet Volume 10.6 fL (9.5-12.2); Platelet Count 114 X 10*3/uL (140-440); RBC 4.07 X 10*6/uL (4.40-5.60)
[2021-03-06 12:03] LABS: Albumin 3.5 g/dL (3.80-4.90); Albumin/Globulin Ratio 1.67 (1.60-3.17); Bilirubin, Conjugated 0.6 mg/dL (0.20-0.40); Calcium 9.2 mg/dL (8.7-10.3); Globulin 2.1 g/dL (1.6-3.3); Non-African American GFR(CKD) 66.4 (60.0-200.0); Potassium 4.1 mmol/L (3.5-5.5); Total Bilirubin 1.6 mg/dL (0.3-1.2); Total Protein 5.6 g/dL (6.2-8.2)
--- NOTE | 2021-03-06 13:51 | P.PN ---
Subjective This is a pleasant 89 years old male with multiple medical problems including atrial fibrillation on Eliquis, COPD, CVA/TIA, hyperlipidemia and GERD. Patient is lying in bed, awake and alert and appropriate. He looks lethargic. His nausea vomiting resolved. He denies abdominal pain. No bowel movement yet. No headache or weakness or dizziness. Chest pain or dyspnea. Patient hemodynamically is stable. Hemoglobin stable at 11.9, chronic thro mbocytopenia at 114. With slightly up on his stable at 1.6. Patient is currently on normal saline at 75 mL/h, IV Protonix twice daily and Carafate and Zofran as needed Plan for EGD tomorrow Eliquis is on hold Objective - Vital Signs Vital signs: Vital Signs Temp 97.9 F 03/06/21 07:00 Pulse 73 03/06/21 08:00 Resp 16 03/06/21 08:00 BP 135/68 03/06/21 07:00 Pulse Ox 95 03/06/21 07:00 Intake & Output 03/05/21 03/06/21 03/06/21 18:59 06:59 18:59 Intake Total 380 Output Total 2180 2230 Balance -1800 -2230 Intake: Oral 380 Output: Urine 2180 2230 Other: Voiding Method Urinal Urinal # Voids 2 - Exam -GENERAL: The patient is alert and oriented x3, not in any acute distress. Well developed, well nourished. Generally weak HEENT: Pupils are round and equally reacting to light. EOMI. No scleral icterus. No conjunctival pallor. Normocephalic, atraumatic. No pharyngeal erythema. No thyromegaly. CARDIOVASCULAR: S1 and S2 present. No murmurs, rubs, or gallops. PULMONARY: Chest is clear to auscultation, no wheezing or crackles. ABDOMEN: Soft, nontender, nondistended, normoactive bowel sounds. No palpable organomegaly. MUSCULOSKELETAL: No joint swelling or deformity. EXTREMITIES: No cyanosis, clubbing, or pedal edema. NEUROLOGICAL: Gross neurological examination did not reveal any focal deficits. SKIN: No rashes. no petechiae. - Labs CBC & Chem 7: 03/06/21 06:53 03/06/21 06:53 Labs: Abnormal Lab Results - Last 24 Hours (Table) 03/06/21 03/06/21 03/06/21 Range/Units 06:53 06:53 06:53 WBC 4.10 L (4.50-10.00) X 10*3/uL RBC 4.07 L (4.40-5.60) X 10*6/uL Hgb 11.9 L (13.0-17.0) g/dL Hct 35.9 L (39.6-50.0) % Plt Count 114 L (140-440) X 10*3/uL Total Bilirubin 1.6 H (0.3-1.2) mg/dL Conjugated Bilirubin 0.60 H (0.20-0.40) mg/dL Ammonia 51 H (<30) umol/L Total Protein 5.6 L (6.2-8.2) g/dL Albumin 3.50 L (3.80-4.90) g/dL Assessment and Plan Assessment: Acute nausea and vomiting, possible gastritis improved History of peptic ulcer disease status post partial gastrectomy Dementia History of atrial fibrillation on Eliquis History of atrial fibrillation, not on acute exacerbation History of CVA/TIA Hyperlipidemia History of GERD Plan: This is a pleasant 89 years old male who presents with nausea and vomiting in view of history of peptic ulcer disease. GI team on the case and the planning for EGD tomorrow. Eliquis is on hold Labs and medication were reviewed.. Continue same treatment. Continue with symptomatic treatment. Resume home medication. Monitor lytes and vitals. DVT and GI prophylaxis. Further recommendationsas per clinical course of the patient DVT prophylaxis: Subcutaneous heparin GI Prophylaxis: Ppi PT/OT: Pending Prognosis is guarded
--- NOTE | 2021-03-06 15:09 | P.PN ---
Subjective Progress Note Date: 03/06/21 Principal diagnosis: weakness, nausea and vomiting This is an 89-year-old male who came in with complaints of abdominal pain, weakness, nausea and vomiting. Today he is seen and evaluated and abdominal pain is improved, as well as nausea and vomiting. Patient was initially redd eduled for EGD today however he had taken Ahlquist. That has been put on hold and plan is for EGD tomorrow. He denies any hematemesis, coffee-ground emesis, or blood in his stool. Objective - Vital Signs Vital signs: Vital Signs Temp 97.9 F 03/06/21 07:00 Pulse 73 03/06/21 07:00 Resp 16 03/06/21 07:00 BP 135/68 03/06/21 07:00 Pulse Ox 95 03/06/21 07:00 Intake & Output 03/05/21 03/06/21 03/06/21 18:59 06:59 18:59 Intake Total 380 Output Total 2180 2230 Balance -1800 -2230 Intake: Oral 380 Output: Urine 2180 2230 Other: Voiding Method Urinal # Voids 2 - Exam General appearance: The patient is alert, oriented, appears in no acute distress. HET: Head is normocephalic and atraumatic. Conjunctiva pink. Sclera anicteric. Neck: Supple without lymphadenopathy. Abdomen: Soft, mild epigastric tenderness, nondistended with bowel sounds. No guarding or rigidity. Extremities: Normal skin color and turgor. No pedal edema Skin: No rashes, no jaundice Neurological: No focal deficits. Alert and oriented 3. - Labs CBC & Chem 7: 03/06/21 06:53 03/06/21 06:53 Labs: Abnormal Lab Results - Last 24 Hours (Table) 03/05/21 03/06/21 Range/Units 05:26 06:53 Total Bilirubin 1.6 H (0.3-1.2) mg/dL Ammonia 51 H (<30) umol/L Total Protein 6.0 L (6.2-8.2) g/dL Albumin 3.70 L (3.80-4.90) g/dL Assessment and Plan (1) Abdominal pain Narrative/Plan: 89-year-old male who presented to the emergency department with complaints of nausea vomiting and abdominal pain. Patient has a past medical history of ulcer which he underwent surgery and a partial gastrectomy. Initial workup in the emergency department he underwent an acute GI series showing moderate amount of stool. Patient states he feels his bowel movements have been normal which she has gone day and yesterday, however does report only small amounts. Admitting labs overall unremarkable. However there was a noted ammonia of 104. His repeat LFTs today show an increase in his total bilirubin at 1.6, alkaline phosphatase 81, AST 33, ALT 23. He is no longer having any further nausea and vomiting at this time, patient was scheduled to go down for CT of abdomen which showed no significant abnormality to account for patient's symptoms. Possible etiologies could include ulcer as patient has previous history, gastritis, esophagitis, or other etiologies. Initial plan was to proceed with EGD tomorrow, however patient is on Ahlquist last dose was taken this morning. Will hold Eliquis and schedule EGD for Friday. Current Visit: No Status: Acute Code(s): R10.9 - UNSPECIFIED ABDOMINAL PAIN SNOMED Code(s): 55356135 (2) Nausea & vomiting Narrative/Plan: Continue with antibiotics, Protonix twice a day Current Visit: Yes Status: Acute Code(s): R11.2 - NAUSEA WITH VOMITING, UNSPECIFIED SNOMED Code(s): 69329495 Plan: 1. Continue symptomatic and supportive care 2. Antiemetics as needed 3. Protonix 40 mg IV twice a day 4. Diet as tolerated, nothing by mouth after midnight 5. CT of abdomen/pelvis reviewed no acute findings 6. Acute GI series showing moderate amount of stool in colon, will add MiraLAX daily 7. Hold Eliquis 8. Will proceed with EGD tomorrow Thank you for this consultation, we will continue to follow. Dr. Jose Olsen I agree with the dictator's note, documented as a scribe by Prudence Morse.
[2021-03-06] MEDS: METOPROLOL SUCCINATE (ER) 25 MG TAB.ER.24H PO SCH (21:18)
[2021-03-07] MEDS: SYMBICORT 80-4.5 MCG INHALER INHALATION SCH ×2 (08:59→20:23)
[2021-03-07] MEDS: SUCRALFATE 1 GM TAB PO SCH ×3 (09:25→20:15)
[2021-03-07] MEDS: PANTOPRAZOLE 40 MG/10 ML VIAL IVP SCH ×2 (09:25→20:15)
[2021-03-07] MEDS: SODIUM CHLORIDE 0.9% 1,000 ML IV SCH ×2 (09:25→16:53)
--- NOTE | 2021-03-07 12:37 | P.PN ---
Progress Note - Text Progress Note Date: 03/07/21 Was asked to see the patient and his to discuss procedure further. The plan was for the patient to undergo EGD for complaints of abdominal pain, nausea and vomiting. The procedure was discussed in detail including risks and benefits with the patient and his both Friday and Friday. Again today patient was seen with at the bedside discussed the procedure of EGD in detail with patient and including risks and benefits, patient and are both agreeable to proceed with EGD this afternoon. This was discussed with the patient's nurse Drea, she will obtain consent. Dr. Jose Olsen I agree with the dictator's note, documented as a scribe by Prudence Morse.
[2021-03-07] MEDS ORDERED: PROPOFOL 10 MG/ML 20 ML VIAL IV ONE (14:40)
[2021-03-07] MEDS ORDERED: IV FLUID CONTINUATION 1,000 ML IV ONE (14:51)
--- NOTE | 2021-03-07 14:51 | P.PCN ---
Date of Procedure: 03/07/21 Procedure(s) Performed: BRIEF HISTORY: Patient is a 89-year-old, pleasant, white male complaining of epigastric pain, decreased appetite and poor oral intake for the last few weeks duration. His and scheduled for an upper endoscopy to evaluate further. PROCEDURE PERFORMED: Esophagogastroduodenoscopy. PREOPERATIVE DIAGNOSIS: Epigastric pain/decreased oral intake. IV sedation per anesthesia. PROCEDURE: After informed consent was obtained, the patient was brought into the endoscopy unit. IV sedation was administered by Anesthesia under continuous monitoring. Initially the Olympus GIF-140 video endoscope was inserted into the mouth. Esophagus intubated without any difficulty. It was gradually advanced into the stomach and there was evidence of Billroth II gastrectomy. The afferent and efferent loops appeared normal. The anastomosis appeared normal. There was no evidence of ulcerations noted. The scope at this time was withdrawn to the stomach, adequately insufflated with air, and upon careful examination, mucosa of the abdomen antrum, body, cardia and the fundus appeared normal. The scope was then withdrawn into the esophagus. The GE junction was located at 39 cm from the incisors. The esophagus appeared normal. There were no erosions or ulcerations seen and the patient tolerated the procedure well. IMPRESSION: 1. Evidence of Billroth II gastrectomy. 2. No evidence of peptic ulcer disease or esophagitis. RECOMMENDATIONS: The findings of this examination were discussed with the patient as well as his family. Continue with symptomatic and supportive care. Continue ensure 1 can 3 times daily. We'll advance diet as tolerated.
[2021-03-07] MEDS: METOPROLOL SUCCINATE (ER) 25 MG TAB.ER.24H PO SCH (20:15)
--- NOTE | 2021-03-07 22:27 | P.PN ---
Subjective This is a pleasant 89 years old male with multiple medical problems including atrial fibrillation on Eliquis, COPD, CVA/TIA, hyperlipidemia and GERD. Patient is lying in bed, awake and alert and appropriate. He looks lethargic. His nausea vomiting resolved. He denies abdominal pain. No bowel movement yet. No headache or weakness or dizziness. Chest pain or dyspnea. Patient hemodynamically is stable. Hemoglobin stable at 11.9, chronic thro mbocytopenia at 114. With slightly up on his stable at 1.6. Patient is currently on normal saline at 75 mL/h, IV Protonix twice daily and Carafate and Zofran as needed Plan for EGD tomorrow Oren is on hold 03/07/2021 Patient today is awake, comfortable however he is somewhat weak, he is sitting at bedside. Not in distress. Also is at bedside. His nausea vomiting have resolved, however he underwent EGD because of his history of peptic ulcer disease, result of EGD showing no evidence of ulcer disease however there is bileroth type II Diet is advanced and he consented and the percent of regular diet. The fluid was stopped. Hemodynamically stable Oren still on hold until cleared by GI team, possibly tomorrow at bedside and she does not want him to go to rehab even PT recommended that. Physical therapy evaluation is still pending. states she has good care of him at home Objective - Vital Signs Vital signs: Vital Signs Temp 97.8 F 03/07/21 07:00 Pulse 67 03/07/21 07:00 Resp 16 03/07/21 07:00 BP 123/60 03/07/21 07:00 Pulse Ox 94 L 03/07/21 07:00 Intake & Output 03/06/21 03/07/21 03/07/21 18:59 06:59 18:59 Intake Total 118 250 Output Total 450 Balance 118 -200 Intake: Oral 118 250 Output: Urine 450 Other: Voiding Method Urinal Urinal # Voids 3 2 # Bowel Movements 1 1 - Exam -GENERAL: The patient is alert and oriented x3, not in any acute distress. Well developed, well nourished. Generally weak HEENT: Pupils are round and equally reacting to light. EOMI. No scleral icterus. No conjunctival pallor. Normocephalic, atraumatic. No pharyngeal erythema. No thyromegaly. CARDIOVASCULAR: S1 and S2 present. No murmurs, rubs, or gallops. PULMONARY: Chest is clear to auscultation, no wheezing or crackles. ABDOMEN: Soft, nontender, nondistended, normoactive bowel sounds. No palpable organomegaly. MUSCULOSKELETAL: No joint swelling or deformity. EXTREMITIES: No cyanosis, clubbing, or pedal edema. NEUROLOGICAL: Gross neurological examination did not reveal any focal deficits. SKIN: No rashes. no petechiae. - Labs CBC & Chem 7: 03/06/21 06:53 03/06/21 06:53 Assessment and Plan Assessment: Acute nausea and vomiting, possible gastritis improved. Patient progressed diet well. EGD is negative for ulcer disease History of peptic ulcer disease status post partial gastrectomy Dementia History of atrial fibrillation on Eliquis History of atrial fibrillation, not on acute exacerbation History of CVA/TIA Hyperlipidemia History of GERD Plan: This is a pleasant 89 years old male who presents with nausea and vomiting in view of history of peptic ulcer disease. GI team on the case Continue with diet. Eliquis is on hold. Possible resume tomorrow if cleared by GI Possible discharge tomorrow Labs and medication were reviewed.. Continue same treatment. Continue with symptomatic treatment. Resume home medication. Monitor lytes and vitals. DVT and GI prophylaxis. Further recommendations as per clinical course of the patient DVT prophylaxis: Subcutaneous heparin GI Prophylaxis: Ppi Physical therapy evaluation: Pending
[2021-03-08] MEDS: SYMBICORT 80-4.5 MCG INHALER INHALATION SCH (07:51)
[2021-03-08 08:40] VITALS: BP 101/55; PULSE 65; RESP 20; TEMP 97.8
--- NOTE | 2021-03-08 09:22 | P.PN ---
Subjective Progress Note Date: 03/08/21 Principal diagnosis: weakness, nausea and vomiting This is an 89-year-old male who came in with complaints of abdominal pain, weakness, nausea and vomiting. Today he is seen and evaluated and abdominal pain is improved, as well as nausea and vomiting. Patient is status post EGD yesterday with evidence of Billroth II gastrectomy no evidence of peptic ulcer disease or esophagitis. Patient is seen and examined lying in bed, he is tolerating his regular diet. He denies any abdominal pain, nausea, or vomiting. Objective - Vital Signs Vital signs: Vital Signs Temp 97.8 F 03/08/21 07:00 Pulse 65 03/08/21 07:00 Resp 20 03/08/21 07:00 BP 101/55 03/08/21 07:00 Pulse Ox 95 03/08/21 07:00 Intake & Output 03/07/21 03/08/21 03/08/21 18:59 06:59 18:59 Intake Total 100 236 Output Total 200 500 Balance -100 -264 Intake: IV 100 Oral 236 Output: Urine 200 500 Other: Voiding Method Urinal Urinal # Voids 1 - Exam General appearance: The patient is alert, oriented, appears in no acute distress. HET: Head is normocephalic and atraumatic. Conjunctiva pink. Sclera anicteric. Neck: Supple without lymphadenopathy. Abdomen: Soft, nontender, nondistended with bowel sounds. No guarding or rigidity. Extremities: Normal skin color and turgor. No pedal edema Skin: No rashes, no jaundice Neurological: No focal deficits. Alert and oriented 3. - Labs CBC & Chem 7: 03/06/21 06:53 03/06/21 06:53 Assessment and Plan (1) Abdominal pain Narrative/Plan: 89-year-old male who presented to the emergency department with complaints of nausea vomiting and abdominal pain. Patient has a past medical history of ulcer which he underwent surgery and a partial gastrectomy. Initial workup in the emergency department he underwent an acute GI series showing moderate amount of stool. Patient states he feels his bowel movements have been normal which she has gone Saturday and yesterday, however does report only small amounts. Admitting labs overall unremarkable. However there was a noted ammonia of 104. His repeat LFTs today show an increase in his total bilirubin at 1.6, alkaline phosphatase 81, AST 33, ALT 23. He is no longer having any further nausea and vomiting at this time, patient was scheduled to go down for CT of abdomen which showed no significant abnormality to account for patient's symptoms. Possible etiologies could include ulcer as patient has previous history, gastritis, esophagitis, or other etiologies. Initial plan was to proceed with EGD gemini , however patient is on Ahlquist last dose was taken this morning. Will hold Eliquis and schedule EGD for Friday. Patient is status post EGD, no evidence of peptic ulcer disease or esophagitis. Evidence of Billroth II gastrectomy. Current Visit: No Status: Acute Code(s): R10.9 - UNSPECIFIED ABDOMINAL PAIN SNOMED Code(s): 98327942 (2) Nausea & vomiting Narrative/Plan: Continue with antibiotics, Protonix twice a day Current Visit: Yes Status: Acute Code(s): R11.2 - NAUSEA WITH VOMITING, UNSPECIFIED SNOMED Code(s): 57500439 Plan: 1. Continue symptomatic and supportive care 2. Antiemetics as needed 3. Protonix 40 mg IV twice a day 4. I know continue regular diet 5. CT of abdomen/pelvis reviewed no acute findings 6. Acute GI series showing moderate amount of stool in colon, will add MiraLAX daily 7. May resume Eliquis 8. Status post EGD Thank you for this consultation, patient is cleared for discharge from gastroenterology. We will sign off at this time. Dr. Jose Olsen I agree with the dictator's note, documented as a scribe by Prudence Morse.
[2021-03-08] MEDS: PANTOPRAZOLE 40 MG/10 ML VIAL IVP SCH (09:24)
[2021-03-08] MEDS: SUCRALFATE 1 GM TAB PO SCH (09:24)
[2021-03-08] MEDS ORDERED: APIXABAN 5 MG TAB PO SCH (11:30)
[2021-03-08] MEDS ORDERED: PANTOPRAZOLE 40 MG TABLET PO SCH (17:30)
--- NOTE | 2021-03-12 07:36 | P.DS ---
Providers Date of admission: 03/04/21 03:02 Attending physician: Bebeto Stevens Consults: 03/05/21 12:46 Consult Physician Routine Consulting Provider: Lynda Olsen Consult Reason/Comments: Abd pain Do you want consulting provider notified?: Yes Primary care physician: Francie Ortiz Hospital Course: Diagnoses: Acute nausea and vomiting, possible gastritis improved. Patient progressed diet well. EGD is negative for ulcer disease Noncompliance History of peptic ulcer disease status post partial gastrectomy Dementia History of atrial fibrillation on Eliquis History of atrial fibrillation, not on acute exacerbation History of CVA/TIA Hyperlipidemia History of GERD Hospital course: This is a pleasant 89 years old male with multiple medical problems including atrial fibrillation on Eliquis, COPD, CVA/TIA, hyperlipidemia and GERD. Patient nausea vomiting secondary to gastritis improved. GI team evaluated the patient. EGD showing no evidence of ulcer disease however there is bileroth type II patient will be discharged on PPI and Carafate. Eliquis, there is per GI team Patient refused to go to [facility] for subacute rehab Patient is back to baseline and he was adamant to be discharged in the morning before 12:00 Problems and management plan were discussed with the patient and he verbalized understanding and acceptance Patient was found stable and can be discharged home in guarded prognosis however he needs follow-up as an outpatient. Patient was instructed to follow up with PCP Dr. Ortiz within one week and patient agrees Patient was instructed to follow up with GI Dr. lOsen in 1-2 week and he agrees patient is high-risk for GI bleed, re-admission to the hospital, infection given his age and multiple medical problems as well as noncompliance with medical recommendation for rehab Physical exam Gen: patient is a AAOx3, no distress. Generally weak CVS: S1-S2, RRR, no murmur Lungs: B/L CTA, no wheezing Abdomen: soft, no distention, no tenderness, positive bowel sounds Extremity: no leg edema or induration Time spent more than 35 minutes Patient Condition at Discharge: Good Plan - Discharge Summary New Discharge Prescriptions: New Pantoprazole [Protonix] 40 mg PO AC-BID #60 tablet. Continue Fluticasone/Salmeterol [Advair 250-50 Diskus] 1 puff INHALATION RT-BID Apixaban [Eliquis] 5 mg PO BID Metoprolol Succinate [Toprol XL] 25 mg PO HS Omeprazole 20 mg PO DAILY Mag Hydrox/Aluminum Hyd/Simeth [Mylanta Maximum Strength Liq] 30 ml PO DAILY PRN PRN Reason: Gi Upset Acetaminophen Tab [Tylenol] 650 mg PO Q6H PRN PRN Reason: Pain Sucralfate [Carafate] 1 gm PO TID Discharge Medication List Fluticasone/Salmeterol [Advair 250-50 Diskus] 1 puff INHALATION RT-BID 02/28/14 [History] Apixaban [Eliquis] 5 mg PO BID 05/20/17 [History] Metoprolol Succinate [Toprol XL] 25 mg PO HS 07/08/20 [History] Acetaminophen Tab [Tylenol] 650 mg PO Q6H PRN 03/04/21 [History] Mag Hydrox/Aluminum Hyd/Simeth [Mylanta Maximum Strength Liq] 30 ml PO DAILY PRN 03/04/21 [History] Omeprazole 20 mg PO DAILY 03/04/21 [History] Sucralfate [Carafate] 1 gm PO TID 03/04/21 [History] Pantoprazole [Protonix] 40 mg PO AC-BID #60 tablet. 03/08/21 [Rx] Follow up Appointment(s)/Referral(s): Lynda Olsen MD [STAFF PHYSICIAN] - 03/21/21 12:00 pm Francie Ortiz DO [Primary Care Provider] - 1-2 days Patient Instructions/Handouts: Peptic Ulcer (GEN), Acute Abdominal Pain (GEN), Chronic Abdominal Pain (GEN) Activity/Diet/Wound Care/Special Instructions: resume previous diet activity is restricted till you see your doctor Discharge Disposition: HOME SELF-CARE
== END 2021-03-08 12:15 | disposition home or self-care (01) ==
LOC: EC 23:59 → 6NMEDSUR 03-04 03:02
PROVIDERS: ADMIT Hospitalist; ATTEND Hospitalist
DX: R11.2 Nausea with vomiting, unspecified (principal); G92 Toxic encephalopathy; T40.2X5A Adverse effect of other opioids, initial encounter; F03.90 Unspecified dementia, unspecified severity, without behavioral disturbance, psychotic disturbance, mood disturbance, and anxiety; I48.0 Paroxysmal atrial fibrillation; E78.5 Hyperlipidemia, unspecified; K21.9 Gastro-esophageal reflux disease without esophagitis; I10 Essential (primary) hypertension; Z87.01 Personal history of pneumonia (recurrent); J44.9 Chronic obstructive pulmonary disease, unspecified; D69.6 Thrombocytopenia, unspecified; E78.00 Pure hypercholesterolemia, unspecified; N40.0 Benign prostatic hyperplasia without lower urinary tract symptoms; Z88.5 Allergy status to narcotic agent; Z88.8 Allergy status to other drugs, medicaments and biological substances; Z98.42 Cataract extraction status, left eye; Z98.41 Cataract extraction status, right eye; Z87.11 Personal history of peptic ulcer disease; Z91.19 Patient's noncompliance with other medical treatment and regimen; Z86.73 Personal history of transient ischemic attack (TIA), and cerebral infarction without residual deficits; Z87.440 Personal history of urinary (tract) infections; Z79.01 Long term (current) use of anticoagulants; Z85.828 Personal history of other malignant neoplasm of skin; Z87.891 Personal history of nicotine dependence; Z90.3 Acquired absence of stomach [part of]; Z90.49 Acquired absence of other specified parts of digestive tract; Z95.0 Presence of cardiac pacemaker; Z83.3 Family history of diabetes mellitus
CPT/HCPCS: 43235; 96376 ×4; 96361 ×4; 96372 ×2; 96375 ×2; 96374; 99285; 36415; 94640 ×8; 94760 ×2; 93005; 83880; 80053 ×2; 80048; 80076; 82140 ×2; 82550; 83605; 83735 ×2; 84100 ×2; 84443; 84484; 85025 ×2; 85027; 85610; 85730; 81003; 74022; 74177; G0378 ×5; J2270; J0780; J2310; J2405; J2704; C9113 ×5; Q9967; J1644

== ENCOUNTER 2021-03-12 09:21 | Observation (INO) | payer MEDICARE ==
[2021-03-12] MEDS ORDERED: SODIUM CHLORIDE 0.9% 1,000 ML IV ONE (09:52)
[2021-03-12] MEDS ORDERED: SODIUM CHLORIDE 0.9% 500 ML 500 ML IV ONE ×2 (09:52→11:52)
[2021-03-12 10:14] LABS: Basophils % (A) 0 %; Eosinophils # (A) 0.2 k/uL (0-0.7); Eosinophils % (A) 4 %; HCT 40.6 % (39.0-53.0); HGB 13.7 gm/dL (13.0-17.5); Lymphocytes # (A) 0.6 k/uL (1.0-4.8); Lymphocytes % (A) 15 %; MCH 30.1 pg (25.0-35.0); MCHC 33.7 g/dL (31.0-37.0); MCV 89.2 fL (80.0-100.0); Mean Platelet Volume 8.5; Monocytes # (A) 0.3 k/uL (0-1.0); Monocytes % (A) 7 %; Neutrophils # (A) 2.8 k/uL (1.3-7.7); Neutrophils % (A) 69 %; Platelet Count 123 k/uL (150-450); RBC 4.54 m/uL (4.30-5.90); RDW 14.7 % (11.5-15.5)
[2021-03-12 10:29] LABS: ALT 20 U/L (4-49); AST 29 U/L (17-59); African American GFR (CKD) >90 (>60 ml/min/1.73 sqM); Albumin 3.7 g/dL (3.5-5.0); Alkaline Phosphatase 65 U/L (38-126); Anion Gap 7 mmol/L; Blood Urea Nitrogen 15 mg/dL (9-20); Calcium 9.3 mg/dL (8.4-10.2); Carbon Dioxide 24 mmol/L (22-30); Chloride 106 mmol/L (98-107); Glucose 131 mg/dL (74-99); Non-African American GFR(CKD) 82 (>60 ml/min/1.73 sqM); Potassium 4.1 mmol/L (3.5-5.1); Sodium 137 mmol/L (137-145); Total Bilirubin 1.2 mg/dL (0.2-1.3); Total Protein 6.3 g/dL (6.3-8.2)
[2021-03-12 10:35] LABS: Partial Thromboplastin Time 24.6 sec (22.0-30.0); Prothrombin Time 10.6 sec (9.0-12.0)
--- NOTE | 2021-03-12 10:55 | XR ---
EXAMINATION TYPE: XR chest 2V DATE OF EXAM: 03/12/2021 COMPARISON: 02/17/2021 HISTORY: Shortness of breath TECHNIQUE: Frontal and lateral views of the chest are obtained. FINDINGS: Scattered senescent parenchymal changes noted. Hyperinflation compatible with COPD. No evidence for infiltrate. No evidence for atelectasis. Heart size is stable. Mediastinal structures are stable and grossly unremarkable. No evidence for hilar prominence. Degenerative changes dorsal spine. IMPRESSION: 1. No evidence for acute pulmonary disease.
--- NOTE | 2021-03-12 10:58 | ED ---
General Adult HPI - General Chief complaint: Altered Mental Status Stated complaint: altered mental status Time Seen by Provider: 03/12/21 09:36 Source: patient, EMS, RN notes reviewed Mode of arrival: EMS Limitations: altered mental status - History of Present Illness Initial comments: This an 89-year-old male presents emergency Department with son chief complaint of confusion. Patient recent started having some confusion and states he gets go to the bathroom this morning but was unable to urinate was going the wrong direction when he attempted to go to the bathroom. Patient reportedly was in the hospital recently for complaints of abdominal pain did have a complete workup with no significant findings. Patient did have some urinary retention and states he had some sort of catheter which was causing some problems. Patient's had confusion with urinary tract infections no infections in the past. Patient himself complains of some mild lower abdominal pressure. No chest pain no cough or URI symptoms. - Related Data Home Medications Medication Instructions Recorded Confirmed Fluticasone/Salmeterol [Advair 1 puff INHALATION RT-BID 02/28/14 03/12/21 250-50 Diskus] Apixaban [Eliquis] 5 mg PO BID 05/20/17 03/12/21 Metoprolol Succinate [Toprol XL] 25 mg PO HS 07/08/20 03/12/21 Acetaminophen Tab [Tylenol] 650 mg PO Q6H PRN 03/04/21 03/12/21 Mag Hydrox/Aluminum Hyd/Simeth 30 ml PO DAILY PRN 03/04/21 03/12/21 [Mylanta Maximum Strength Liq] Omeprazole 20 mg PO DAILY 03/04/21 03/12/21 Sucralfate [Carafate] 1 gm PO TID 03/04/21 03/12/21 Previous Rx's Medication Instructions Recorded Pantoprazole [Protonix] 40 mg PO AC-BID #60 tablet. 03/08/21 Allergies Allergy/AdvReac Type Severity Reaction Status Date / Time codeine AdvReac Intermediate Hallucinati Verified 03/12/21 11:19 ons atorvastatin [From Lipitor] AdvReac Nausea & Verified 03/12/21 11:19 Vomiting prednisone AdvReac agitated Verified 03/12/21 11:19 Review of Systems ROS Statement: Those systems with pertinent positive or pertinent negative responses have been documented in the HPI. ROS Other: All systems not noted in ROS Statement are negative. 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 History of Any Multi-Drug Resistant Organisms: None Reported Past Surgical History: Appendectomy, Cardiac Ablation, Cholecystectomy, Heart Catheterization, Pacemaker Additional Past Surgical History / Comment(s): 08/30/20 TURP, laparotomy for ulcer repair/partial gastrectomy, hemorrhoidectomy, colonoscopies, EGDs, bilateral cataract removals, skin cancer removed from face, occipital nerve injections. Past Anesthesia/Blood Transfusion Reactions: No Reported Reaction Type of Cardiac Device: Permanent Pacemaker Device Placement Date:: 2013 Past Psychological History: No Psychological Hx Reported Smoking Status: Former smoker Past Alcohol Use History: None Reported Past Drug Use History: None Reported - Past Family History Father Family Medical History: CVA/TIA Additional Family Medical History / Comment(s): Father had TIAs. He passed at the age of 82 yrs. Mother Family Medical History: Diabetes Mellitus Additional Family Medical History / Comment(s): AT AGE 76. General Exam Limitations: altered mental status General appearance: alert, in no apparent distress Head exam: Present: atraumatic, normocephalic, normal inspection Eye exam: Present: normal appearance, PERRL, EOMI. Absent: scleral icterus, conjunctival injection, periorbital swelling Neck exam: Present: normal inspection, full ROM. Absent: tenderness, meningismus, lymphadenopathy Respiratory exam: Present: normal lung sounds bilaterally. Absent: respiratory distress, wheezes, rales, rhonchi, stridor Cardiovascular Exam: Present: regular rate, normal rhythm, normal heart sounds. Absent: systolic murmur, diastolic murmur, rubs, gallop, clicks GI/Abdominal exam: Present: soft, normal bowel sounds. Absent: distended, ten derness, guarding, rebound, rigid Back exam: Absent: CVA tenderness (R), CVA tenderness (L) Neurological exam: Present: alert, CN II-XII intact. Absent: oriented X3 Skin exam: Present: warm, dry, intact, normal color. Absent: rash Course Vital Signs 03/12/21 03/12/21 03/12/21 09:22 10:29 11:38 Temperature 97.4 F L Pulse Rate 73 69 68 Respiratory 18 18 18 Rate Blood Pressure 149/77 150/78 128/88 O2 Sat by Pulse 99 99 97 Oximetry 03/12/21 12:18 Temperature Pulse Rate 64 Respiratory 18 Rate Blood Pressure 121/84 O2 Sat by Pulse 97 Oximetry Medical Decision Making - Medical Decision Making 89-year-old male presented for some lower abdominal pain, confusion this morning . Patient does have 7 white cells with lower abdominal tenderness family states this is how he acts with with his urinary tract infection. Patient be admitted for IV antibiotics, further treatment. - Lab Data Result diagrams: 03/12/21 10:00 03/12/21 10:00 Lab Results 03/12/21 03/12/21 03/12/21 Range/Units 10:00 10:00 10:00 WBC 4.0 (3.8-10.6) k/uL RBC 4.54 (4.30-5.90) m/uL Hgb 13.7 (13.0-17.5) gm/dL Hct 40.6 (39.0-53.0) % MCV 89.2 (80.0-100.0) fL MCH 30.1 (25.0-35.0) pg MCHC 33.7 (31.0-37.0) g/dL RDW 14.7 (11.5-15.5) % Plt Count 123 L (150-450) k/uL MPV 8.5 Neutrophils % 69 % Lymphocytes % 15 % Monocytes % 7 % Eosinophils % 4 % Basophils % 0 % Neutrophils # 2.8 (1.3-7.7) k/uL Lymphocytes # 0.6 L (1.0-4.8) k/uL Monocytes # 0.3 (0-1.0) k/uL Eosinophils # 0.2 (0-0.7) k/uL Basophils # 0.0 (0-0.2) k/uL PT 10.6 (9.0-12.0) sec INR 1.0 (<1.2) APTT 24.6 (22.0-30.0) sec Sodium 137 (137-145) mmol/L Potassium 4.1 (3.5-5.1) mmol/L Chloride 106 (98-107) mmol/L Carbon Dioxide 24 (22-30) mmol/L Anion Gap 7 mmol/L BUN 15 (9-20) mg/dL Creatinine 0.74 (0.66-1.25) mg/dL Est GFR (CKD-EPI)AfAm >90 (>60 ml/min/1.73 sqM) Est GFR (CKD-EPI)NonAf 82 (>60 ml/min/1.73 sqM) Glucose 131 H (74-99) mg/dL Calcium 9.3 (8.4-10.2) mg/dL Total Bilirubin 1.2 (0.2-1.3) mg/dL AST 29 (17-59) U/L ALT 20 (4-49) U/L Alkaline Phosphatase 65 (38-126) U/L Troponin I (0.000-0.034) ng/mL Total Protein 6.3 (6.3-8.2) g/dL Albumin 3.7 (3.5-5.0) g/dL Urine Color Urine Appearance (Clear) Urine pH (5.0-8.0) Ur Specific [place] (1.001-1.035) Urine Protein (Negative) Urine Glucose (UA) (Negative) Urine Ketones (Negative) Urine Blood (Negative) Urine Nitrite (Negative) Urine Bilirubin (Negative) Urine Urobilinogen (<2.0) mg/dL Ur Leukocyte Esterase (Negative) Urine RBC (0-5) /hpf Urine WBC (0-5) /hpf Urine Mucus (None) /hpf 03/12/21 03/12/21 Range/Units 10:00 11:10 WBC (3.8-10.6) k/uL RBC (4.30-5.90) m/uL Hgb (13.0-17.5) gm/dL Hct (39.0-53.0) % MCV (80.0-100.0) fL MCH (25.0-35.0) pg MCHC (31.0-37.0) g/dL RDW (11.5-15.5) % Plt Count (150-450) k/uL MPV Neutrophils % % Lymphocytes % % Monocytes % % Eosinophils % % Basophils % % Neutrophils # (1.3-7.7) k/uL Lymphocytes # (1.0-4.8) k/uL Monocytes # (0-1.0) k/uL Eosinophils # (0-0.7) k/uL Basophils # (0-0.2) k/uL PT (9.0-12.0) sec INR (<1.2) APTT (22.0-30.0) sec Sodium (137-145) mmol/L Potassium (3.5-5.1) mmol/L Chloride (98-107) mmol/L Carbon Dioxide (22-30) mmol/L Anion Gap mmol/L BUN (9-20) mg/dL Creatinine (0.66-1.25) mg/dL Est GFR (CKD-EPI)AfAm (>60 ml/min/1.73 sqM) Est GFR (CKD-EPI)NonAf (>60 ml/min/1.73 sqM) Glucose (74-99) mg/dL Calcium (8.4-10.2) mg/dL Total Bilirubin (0.2-1.3) mg/dL AST (17-59) U/L ALT (4-49) U/L Alkaline Phosphatase (38-126) U/L Troponin I <0.012 (0.000-0.034) ng/mL Total Protein (6.3-8.2) g/dL Albumin (3.5-5.0) g/dL Urine Color Light Yellow Urine Appearance Clear (Clear) Urine pH 7.0 (5.0-8.0) Ur Specific [place] 1.010 (1.001-1.035) Urine Protein Negative (Negative) Urine Glucose (UA) Negative (Negative) Urine Ketones Negative (Negative) Urine Blood Negative (Negative) Urine Nitrite Negative (Negative) Urine Bilirubin Negative (Negative) Urine Urobilinogen <2.0 (<2.0) mg/dL Ur Leukocyte Esterase Small H (Negative) Urine RBC 3 (0-5) /hpf Urine WBC 7 H (0-5) /hpf Urine Mucus Rare H (None) /hpf Disposition Clinical Impression: Altered mental status, Urinary tract infection, Dehydration Disposition: ADMITTED IP TO THIS HOSP Condition: Fair Referrals: Francie Quiñones DO [Primary Care Provider] - 1-2 days
[2021-03-12 11:56] LABS: Appearance,Urine Clear (Clear); Bilirubin,Urine Negative (Negative); Blood,Urine Negative (Negative); Color,Urine Light Yellow; Glucose,Urine (UA) Negative (Negative); Ketones,Urine Negative (Negative); Leukocyte Esterase,Urine Small (Negative); Mucus,Urine Rare /hpf; Nitrite,Urine Negative (Negative); Protein,Urine Negative (Negative); RBC,Urine 3 /hpf (0-5); Urobilinogen,Urine <2.0 mg/dL (<2.0); WBC,Urine 7 /hpf (0-5)
[2021-03-12] MEDS ORDERED: NALOXONE 0.4 MG/ML 1 ML VIAL IV PRN (12:26)
[2021-03-12] MEDS ORDERED: ACETAMINOPHEN TAB 325 MG TAB PO PRN (12:26)
[2021-03-12] MEDS: SODIUM CHLORIDE 0.9% 1,000 ML IV SCH (13:07)
--- NOTE | 2021-03-12 20:15 | CT ---
EXAMINATION TYPE: CT brain wo con DATE OF EXAM: 03/12/2021 COMPARISON: 02/17/2021 HISTORY: Altered mental status. CT DLP: 1099.4 mGycm Automated exposure control for dose reduction was used. There is cerebral cortical atrophy. There is no mass effect nor midline shift. There is no sign of in tracranial hemorrhage. There is hypodensity in the periventricular white matter. Calvarium is intact. There is normal aeration of the mastoid sinuses. There is some mucosal thickening posterior sphenoid sinus. IMPRESSION: Cerebral atrophy and chronic small vessel ischemia. No acute intracranial abnormality. No change comp ared to old exam. Minimal sphenoid sinusitis without change.
[2021-03-13] MEDS ORDERED: MAG HYDROX/AL HYDROX/SIMETH 30 ML CUP PO PRN (01:52)
--- NOTE | 2021-03-13 01:55 | P.HPIM ---
History of Present Illness H&P Date: 03/12/21 Chief Complaint: Altered mental status Mr. Crane is an 89-year-old male with a past medical history of atrial fibrillation, CVA/TIA, GERD, hypertension, hyperlipidemia, dementia brought into the hospital with a chief complaint of confusion. Patient is hard of hearing and has dementia. So most of the history is obtained from review of the records and nursing staff report. Apparently patient was not able to urinate this morning, was also not at his baseline mentation as per family members. Patient had a recent hospital stay and discharged last week after being worked up for nausea vomiting. At the time of admission patient's vital signs temperature 97.4, heart rate 73, respiratory rate 18, blood pressure 149/77 saturating at 99 room air. Patient had labs done showing white count of 4 hemoglobin 13.7, platelets 123. Sodium 137, potassium 4.1, chloride 106, bicarb 24, BUN 15, creatinine 0.7 troponin less than 0.012 urine analysis is positive for small leukocyte esterase 7 WBCs and rare mucus. Urine culture sent and pending. Patient was given a dose of ceftriaxone in the ED and admitted for further evaluation. 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 History of Any Multi-Drug Resistant Organisms: None Reported Past Surgical History: Appendectomy, Cardiac Ablation, Cholecystectomy, Heart Catheterization, Pacemaker Additional Past Surgical History / Comment(s): 08/30/20 TURP, laparotomy for ulcer repair/partial gastrectomy, hemorrhoidectomy, colonoscopies, EGDs, bilateral cataract removals, skin cancer removed from face, occipital nerve injections. Past Anesthesia/Blood Transfusion Reactions: No Reported Reaction Type of Cardiac Device: Permanent Pacemaker Device Placement Date:: 2013 Past Psychological History: No Psychological Hx Reported Smoking Status: Former smoker Past Alcohol Use History: None Reported Past Drug Use History: None Reported - Past Family History Father Family Medical History: CVA/TIA Additional Family Medical History / Comment(s): Father had TIAs. He passed at the age of 82 yrs. Mother Family Medical History: Diabetes Mellitus Additional Family Medical History / Comment(s): AT AGE 76. Medications and Allergies Home Medications Medication Instructions Recorded Confirmed Type Fluticasone/Salmeterol [Advair 1 puff INHALATION RT-BID 02/28/14 03/12/21 History 250-50 Diskus] Apixaban [Eliquis] 5 mg PO BID 05/20/17 03/12/21 History Metoprolol Succinate [Toprol XL] 25 mg PO HS 07/08/20 03/12/21 History Acetaminophen Tab [Tylenol] 650 mg PO Q6H PRN 03/04/21 03/12/21 History Mag Hydrox/Aluminum Hyd/Simeth 30 ml PO DAILY PRN 03/04/21 03/12/21 History [Mylanta Maximum Strength Liq] Omeprazole 20 mg PO DAILY 03/04/21 03/12/21 History Sucralfate [Carafate] 1 gm PO TID 03/04/21 03/12/21 History Pantoprazole [Protonix] 40 mg PO AC-BID #60 tablet. 03/08/21 03/12/21 Rx Allergies Allergy/AdvReac Type Severity Reaction Status Date / Time codeine AdvReac Intermediate Hallucinati Verified 03/12/21 11:19 ons atorvastatin [From Lipitor] AdvReac Nausea & Verified 03/12/21 11:19 Vomiting prednisone AdvReac agitated Verified 03/12/21 11:19 Physical Exam Vitals: Vital Signs Temp Pulse Resp BP Pulse Ox 03/12/21 16:12 73 18 152/78 92 L 03/12/21 15:49 64 18 145/78 03/12/21 14:00 68 18 135/71 97 03/12/21 12:18 64 18 121/84 97 03/12/21 11:38 68 18 128/88 97 03/12/21 10:29 69 18 150/78 99 03/12/21 09:22 97.4 F L 73 18 149/77 99 Intake and Output 03/12/21 03/12/21 03/12/21 06:59 14:59 22:59 Other: Weight 68.039 kg PHYSICAL EXAMINATION: GENERAL: Comfortably lying up in the bed appears to be no acute distress. Hard of hearing HEENT: Pupils are round and equally reacting to light. EOMI. No scleral icterus. No conjunctival pallor. CARDIOVASCULAR: S1 and S2 present. No murmurs, rubs, or gallops. PULMONARY: Bilateral breath sounds positive. No wheeze or crackles.. ABDOMEN: Soft,non -tender, normal bowel sounds. No guarding or rigidity.No supra pubic tenderness MUSCULOSKELETAL: No joint swelling or deformity. EXTREMITIES: No edema NEUROLOGICAL: Gross neurological examination did not reveal any focal deficits. SKIN:No rash Results CBC & Chem 7: 03/13/21 03:52 03/13/21 03:52 Labs: Abnormal Lab Results - Last 24 Hours (Table) 03/12/21 03/12/21 03/12/21 Range/Units 10:00 10:00 11:10 Plt Count 123 L (150-450) k/uL Lymphocytes # 0.6 L (1.0-4.8) k/uL Glucose 131 H (74-99) mg/dL Ur Leukocyte Esterase Small H (Negative) Urine WBC 7 H (0-5) /hpf Urine Mucus Rare H (None) /hpf Microbiology - Last 24 Hours (Table) 03/12/21 12:27 Urine Culture - Preliminary Urine,Voided Assessment and Plan Assessment: ASSESSMENT Encephalopathy could be secondary to UTI Acute UTI present on admission Dementia History of atrial fibrillation on anticoagulation with Eliquis History of CVA/TIA Hyperlipidemia GERD BPH History of vertebral fractures History of skin cancer PLAN: Patient has been started on ceftriaxone after obtaining urine cultures. We will follow up on urine cultures and blood cultures. Patient has been restarted on his home medications. Continue with Protonix for GI prophylaxis. He is on Eliquis for anticoagulation. Continue with the current medication regimen. Recommendations to follow depending on the progress of the patient.
[2021-03-13] MEDS: SODIUM CHLORIDE 0.9% 1,000 ML IV SCH ×2 (02:27→13:55)
[2021-03-13] MEDS ORDERED: PANTOPRAZOLE 40 MG TABLET PO SCH (07:30)
[2021-03-13] MEDS: SYMBICORT 80-4.5 MCG INHALER INHALATION SCH ×2 (08:00→20:47)
[2021-03-13] MEDS: PANTOPRAZOLE 40 MG TABLET PO SCH ×2 (08:36→18:16)
[2021-03-13] MEDS: APIXABAN 5 MG TAB PO SCH ×2 (08:37→23:30)
[2021-03-13] MEDS: SUCRALFATE 1 GM TAB PO SCH ×3 (08:37→23:30)
[2021-03-13 09:33] LABS: Basophils # (A) 0.03 X 10*3/uL (0.00-0.10); Basophils % (A) 0.7 %; Eosinophils # (A) 0.21 X 10*3/uL (0.04-0.35); Eosinophils % (A) 4.8 %; HCT 33.2 % (39.6-50.0); Lymphocytes # (A) 1.03 X 10*3/uL (0.90-5.00); Lymphocytes % (A) 23.4 %; MCH 29.3 pg (27.0-32.0); MCHC 33.1 g/dL (32.0-37.0); MCV 88.3 fL (80.0-97.0); Mean Platelet Volume 10.6 fL (9.5-12.2); Monocytes # (A) 0.64 X 10*3/uL (0.20-1.00); Monocytes % (A) 14.5 %; Neutrophils # (A) 2.49 X 10*3/uL (1.80-7.70); Neutrophils % (A) 56.4 %; Platelet Count 118 X 10*3/uL (140-440); RBC 3.76 X 10*6/uL (4.40-5.60); RDW 13.4 % (11.5-14.5); WBC 4.41 X 10*3/uL (4.50-10.00)
[2021-03-13 10:08] LABS: African American GFR (CKD) 91.8 (60.0-200.0); Anion Gap 6.3 mmol/L (4.00-12.00); BUN/Creat Ratio 16.25 Ratio (12.00-20.00); Calcium 8.3 mg/dL (8.7-10.3); Carbon Dioxide 25.7 mmol/L (21.6-31.8); Non-African American GFR(CKD) 79.2 (60.0-200.0); Potassium 3.7 mmol/L (3.5-5.5)
[2021-03-13] MEDS: ACETAMINOPHEN TAB 325 MG TAB PO PRN (10:23)
[2021-03-13] MEDS: METOPROLOL SUCCINATE (ER) 25 MG TAB.ER.24H PO SCH (23:30)
--- NOTE | 2021-03-13 23:55 | P.PN ---
Subjective This is a pleasant 89 years old male with multiple medical problems including atrial fibrillation on Eliquis, COPD, CVA/TIA, hyperlipidemia and GERD. Patient was recently discharged from the hospital a few days ago for recurrent nausea vomiting where he had EGD showing no evidence of ulcer disease but bileroth type II This time he presents with possible altered mental status suspected to UTI however her urinalysis His only mildly abnormal showing small leukocyte esterase with no obesity slightly high at 7. Patient did not report overt signs symptoms of UTI plug no dysuria or urgency, check bladder scan 2 it was 36 and 101-150 with no evidence of retention, however patient has dementia and when I talked to the and she believes he has UTI. Urine culture is growing enterococci group D, final culture result is pending. Patient currently is covered with Rocephin This morning he was awake and alert but forgetful, he told me he did not eat his meals but when I checked with the staff they confirmed to me that he ate 75% of his meal . No abdominal pain. No diarrhea Objective - Vital Signs Vital signs: Vital Signs Temp 98.5 F 03/13/21 14:19 Pulse 81 03/13/21 14:19 Resp 18 03/13/21 14:19 BP 113/53 03/13/21 14:19 Pulse Ox 94 L 03/13/21 14:19 Intake & Output 03/12/21 03/13/21 03/13/21 18:59 06:59 18:59 Output Total 300 Balance -300 Weight 68.039 kg 68.039 kg Output: Urine 300 Other: Voiding Method Toilet Urinal # Voids 0 - Exam -GENERAL: The patient is alert and oriented x1 with memory problem, not in any acute distress. Well developed, well nourished. HEENT: Pupils are round and equally reacting to light. EOMI. No scleral icterus. No conjunctival pallor. Normocephalic, atraumatic. No pharyngeal erythema. No thyromegaly. CARDIOVASCULAR: S1 and S2 present. No murmurs, rubs, or gallops. PULMONARY: Chest is clear to auscultation, no wheezing or crackles. ABDOMEN: Soft, nontender, nondistended, normoactive bowel sounds. No palpable organomegaly. MUSCULOSKELETAL: No joint swelling or deformity. EXTREMITIES: No cyanosis, clubbing, or pedal edema. NEUROLOGICAL: Gross neurological examination did not reveal any focal deficits. SKIN: No rashes. no petechiae. - Labs CBC & Chem 7: 03/13/21 03:52 03/13/21 03:52 Labs: Abnormal Lab Results - Last 24 Hours (Table) 03/13/21 03/13/21 Range/Units 03:52 03:52 WBC 4.41 L (4.50-10.00) X 10*3/uL RBC 3.76 L (4.40-5.60) X 10*6/uL Hgb 11.0 L (13.0-17.0) g/dL Hct 33.2 L (39.6-50.0) % Plt Count 118 L (140-440) X 10*3/uL Chloride 110 H (96-109) mmol/L Calcium 8.3 L (8.7-10.3) mg/dL Microbiology - Last 24 Hours (Table) 03/12/21 12:27 Urine Culture - Preliminary Urine,Voided Assessment and Plan Assessment: Possible Acute urinary tract infection secondary to enterococci Possible metabolic encephalopathy, improved and patient back to baseline however he has history of dementia and memory problem History of peptic ulcer disease status post partial gastrectomy Dementia History of atrial fibrillation on Eliquis History of atrial fibrillation, not on acute exacerbation History of CVA/TIA Hyperlipidemia History of GERD Plan: This is a pleasant 89 years old male who presents with UTI secondary to enterococci GI continue with antibiotic and adjust based on urine culture final results Labs and medication were reviewed.. Continue same treatment. Continue with symptomatic treatment. Resume home medication. Monitor lytes and vitals. DVT and GI prophylaxis. Further recommendations as per clinical course of the patient DVT prophylaxis: Subcutaneous heparin GI Prophylaxis: Ppi Patient and refused rehab
[2021-03-14] MEDS: SODIUM CHLORIDE 0.9% 1,000 ML IV SCH ×2 (04:35→17:55)
[2021-03-14] MEDS: SYMBICORT 80-4.5 MCG INHALER INHALATION SCH ×2 (07:45→21:23)
[2021-03-14] MEDS: APIXABAN 5 MG TAB PO SCH ×2 (09:25→22:33)
[2021-03-14] MEDS: PANTOPRAZOLE 40 MG TABLET PO SCH ×3 (09:25→16:55)
[2021-03-14] MEDS: SUCRALFATE 1 GM TAB PO SCH ×3 (09:25→22:32)
[2021-03-14] MEDS ORDERED: ARTIFICIAL TEARS-HYPROMELLOSE DROPS 15 ML BTL BOTH EYES PRN (10:23)
--- NOTE | 2021-03-14 14:29 | P.PN ---
Subjective This is a pleasant 89 years old male with multiple medical problems including atrial fibrillation on Eliquis, COPD, CVA/TIA, hyperlipidemia and GERD. Patient was recently discharged from the hospital a few days ago for recurrent nausea vomiting where he had EGD showing no evidence of ulcer disease but bileroth type II This time he presents with possible altered mental status suspected to UTI however her urinalysis His only mildly abnormal showing small leukocyte esterase with no obesity slightly high at 7. Patient did not report overt signs symptoms of UTI plug no dysuria or urgency, check bladder scan 2 it was 36 and 101-150 with no evidence of retention, however patient has dementia and when I talked to the and she believes he has UTI. Urine culture is growing enterococci group D, final culture result is pending. Patient currently is covered with Rocephin This morning he was awake and alert but forgetful, he told me he did not eat his meals but when I checked with the staff they confirmed to me that he ate 75% of his meal . No abdominal pain. No diarrhea 03/14/2021 patient keep improving every day as is more awake and strong however he still generally weak but patient refused to go to rehab since last admission he is here for UTI secondary to group D enterococcus, final results of urine culture is still pending. Continue with ceftriaxone He is eating 75% of his multiple meals Possible discharge in 24-48 hours Objective - Vital Signs Vital signs: Vital Signs Temp 98.5 F 03/14/21 07:00 Pulse 67 03/14/21 13:37 Resp 18 03/14/21 13:37 BP 151/72 03/14/21 07:00 Pulse Ox 95 03/14/21 07:45 Intake & Output 03/13/21 03/14/21 03/14/21 18:59 06:59 18:59 Output Total 1475 600 Balance -1475 -600 Weight 68.039 kg Output: Urine 1475 600 Other: Voiding Method Toilet Toilet Urinal Urinal # Voids 0 1 1 - Exam -GENERAL: The patient is alert and oriented x1 with memory problem, not in any acute distress. Well developed, well nourished. HEENT: Pupils are round and equally reacting to light. EOMI. No scleral icterus. No conjunctival pallor. Normocephalic, atraumatic. No pharyngeal erythema. No thyromegaly. CARDIOVASCULAR: S1 and S2 present. No murmurs, rubs, or gallops. PULMONARY: Chest is clear to auscultation, no wheezing or crackles. ABDOMEN: Soft, nontender, nondistended, normoactive bowel sounds. No palpable organomegaly. MUSCULOSKELETAL: No joint swelling or deformity. EXTREMITIES: No cyanosis, clubbing, or pedal edema. NEUROLOGICAL: Gross neurological examination did not reveal any focal deficits. SKIN: No rashes. no petechiae. 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 Continue same treatment. Continue with symptomatic treatment. Resume home medication. Monitor lytes and vitals. DVT and GI prophylaxis. Further recommendations as per clinical course of the patient DVT prophylaxis: Subcutaneous heparin GI Prophylaxis: Ppi Patient and refused rehab
[2021-03-14] MEDS: ACETAMINOPHEN TAB 325 MG TAB PO PRN (17:35)
[2021-03-14] MEDS: METOPROLOL SUCCINATE (ER) 25 MG TAB.ER.24H PO SCH (22:32)
[2021-03-15] MEDS: PANTOPRAZOLE 40 MG TABLET PO SCH ×2 (08:09→16:57)
[2021-03-15] MEDS ORDERED: FUROSEMIDE 20 MG TAB PO STA (08:09)
[2021-03-15] MEDS: SYMBICORT 80-4.5 MCG INHALER INHALATION SCH ×2 (08:20→21:05)
[2021-03-15] MEDS: SUCRALFATE 1 GM TAB PO SCH ×3 (08:31→19:35)
[2021-03-15] MEDS: APIXABAN 5 MG TAB PO SCH ×2 (08:31→19:35)
[2021-03-15] MEDS: SODIUM CHLORIDE 0.9% 1,000 ML IV SCH (08:33)
--- NOTE | 2021-03-15 12:51 | P.PN ---
Subjective This is a pleasant 89 years old male with multiple medical problems associated historyincluding atrial fibrillation on Eliquis, COPD, CVA/TIA, hyperlipidemia and GERD. Patient was recently discharged from the hospital a few days ago for recurrent n ausea vomiting where he had EGD showing no evidence of ulcer disease but bileroth type II This time he presents with possible altered mental status suspected to UTI however her urinalysis His only mildly abnormal showing small leukocyte esterase with no obesity slightly high at 7. Patient did not report overt signs symptoms of UTI plug no dysuria or urgency, check bladder scan 2 it was 36 and 101-150 with no evidence of retention, however patient has dementia and when I talked to the and she believes he has UTI. Urine culture is growing enterococci group D, final culture result is pending. Patient currently is covered with Rocephin This morning he was awake and alert but forgetful, he told me he did not eat his meals but when I checked with the staff they confirmed to me that he ate 75% of his meal . No abdominal pain. No diarrhea 03/14/2021 patient keep improving every day as is more awake and strong however he still generally weak but patient refused to go to rehab since last admission he is here for UTI secondary to group D enterococcus, final results of urine culture is still pending. Continue with ceftriaxone He is eating 75% of his multiple meals Possible discharge in 24-48 hours 03/15/2021 Patient is doing well clinically, he is alert awake and with only minimal weakness which is significantly improved since admission Is hemodynamically stable. Urine culture showing enterococcus with final results are still pending, we contacted the lab today and they expected the result would be finalized today after midnight Continue with ceftriaxone patient refuses to go to rehab upon discharge. patient is high-risk for readmission, Objective - Vital Signs Vital signs: Vital Signs Temp 98.4 F 03/15/21 07:00 Pulse 64 03/15/21 08:00 Resp 18 03/15/21 08:00 BP 118/69 03/15/21 07:00 Pulse Ox 95 03/15/21 08:21 Intake & Output 03/14/21 03/15/21 03/15/21 18:59 06:59 18:59 Intake Total 480 Output Total 600 1600 950 Balance -600 -1600 -470 Intake: Oral 480 Output: Urine 600 1600 950 Other: Voiding Method Toilet Toilet Urinal Urinal Urinal # Voids 1 2 - Exam -GENERAL: The patient is alert and oriented x1 with memory problem, not in any acute distress. Well developed, well nourished. HEENT: Pupils are round and equally reacting to light. EOMI. No scleral icterus. No conjunctival pallor. Normocephalic, atraumatic. No pharyngeal erythema. No thyromegaly. CARDIOVASCULAR: S1 and S2 present. No murmurs, rubs, or gallops. PULMONARY: Chest is clear to auscultation, no wheezing or crackles. ABDOMEN: Soft, nontender, nondistended, normoactive bowel sounds. No palpable organomegaly. MUSCULOSKELETAL: No joint swelling or deformity. EXTREMITIES: No cyanosis, clubbing, or pedal edema. NEUROLOGICAL: Gross neurological examination did not reveal any focal deficits. SKIN: No rashes. no petechiae. - Labs CBC & Chem 7: 03/13/21 03:52 03/13/21 03:52 Labs: Microbiology - Last 24 Hours (Table) 03/12/21 12:45 Blood Culture - Preliminary Blood No Growth after 48 hours 03/12/21 13:00 Blood Culture - Preliminary Blood No Growth after 48 hours Assessment and Plan Assessment: Possible Acute urinary tract infection secondary to enterococci Possible metabolic encephalopathy, improved and patient back to baseline however he has history of dementia and memory problem History of peptic ulcer disease status post partial gastrectomy Dementia History of atrial fibrillation on Eliquis History of atrial fibrillation, not on acute exacerbation History of CVA/TIA Hyperlipidemia History of GERD Plan: This is a pleasant 89 years old male who presents with UTI secondary to enterococci GI continue with antibiotic and adjust based on urine culture final results Labs and medication were reviewed.. Continue same treatment. Continue with symptomatic treatment. Resume home medication. Monitor lytes and vitals. DVT and GI prophylaxis. Further recommendations as per clinical course of the patient DVT prophylaxis: Subcutaneous heparin GI Prophylaxis: Ppi Patient and refused rehab
[2021-03-15] MEDS ORDERED: polyethylene glycoL 3350 17 GM POWD.PACK PO PRN (12:59)
[2021-03-15] MEDS: DOCUSATE 100 MG CAP PO SCH ×2 (13:09→19:35)
[2021-03-15] MEDS: METOPROLOL SUCCINATE (ER) 25 MG TAB.ER.24H PO SCH (19:35)
[2021-03-16] MEDS: AMPICILLIN 1,000 MG in SODIUM CHLORIDE 0.9% 50 ML IVPB SCH ×2 (00:57→06:08)
[2021-03-16] MEDS: PANTOPRAZOLE 40 MG TABLET PO SCH (08:18)
[2021-03-16] MEDS: DOCUSATE 100 MG CAP PO SCH (08:18)
[2021-03-16] MEDS: SUCRALFATE 1 GM TAB PO SCH (08:19)
[2021-03-16] MEDS: APIXABAN 5 MG TAB PO SCH (08:19)
[2021-03-16] MEDS: SYMBICORT 80-4.5 MCG INHALER INHALATION SCH (08:38)
[2021-03-16 08:53] VITALS: RESP 18
[2021-03-16] MEDS ORDERED: AMOXIC-POT CLAV 875-125MG 1 EACH TAB PO SCH (10:30)
[2021-03-16 12:14] VITALS: BP 122/68; PULSE 86; TEMP 98.6
--- NOTE | 2021-03-17 01:23 | P.DS ---
Providers Date of admission: 03/12/21 12:26 Attending physician: Aldo Iqbal Primary care physician: Francie Quiñones [facility] Course: Diagnoses: Acute urinary tract infection secondary to enterococci sensitive to penicillin metabolic encephalopathy, improved and patient back to baseline however he has history of dementia and memory problem. 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 Patient was recently discharged from the hospital a few days ago for recurrent nausea vomiting where he had EGD showing no evidence of ulcer disease but bileroth type II This time he presents with possible altered mental status suspected to UTI however her urinalysis His only mildly abnormal showing small leukocyte esterase with no obesity slightly high at 7. Patient did not report overt signs symptoms of UTI, no dysuria or urgency, check bladder scan 2 it was 36 and 101-150 with no evidence of retention,Urine culture is growing enterococci group D which is sensitive to ampicillin. Patient will be discharged on Augmentin for 7 days A day of discharge patient is back to baseline mental status, his weakness is significantly improved. He denies chest pain or dyspnea. No abdominal pain, no change in urine or bowel habits. No fever. No leukocytosis. His urine scan was checked on the day of discharge showing again no distention I have lengthy discussion with the patient, and son at bedside with discharge instruction provided for them , son wanted to keep the patient 1 more day for monitoring after starting oral antibiotics, I explained to the son that risk of stent in the hospital more than benefits, times he is at risk of getting another infection. The patient was monitored for 1 hour with no ALLERGIC reaction, this has patient received ampicillin earlier this morning and tolerated that well. Instructed the patient, and son to monitor the patient closely and to call 911 on come to emergency room if he develops any symptoms like including but not limited to headache, dizziness, chest pain, dyspnea, abdominal pain, diarrhea, vomiting, fever, bleeding or any other sy mptoms and they verbalized understanding and acceptance. However patient is at risk of recurrent infection and other complication as this is the second hospitalizing him one week for 2 different diagnoses. Rehab is recommended for the patient but the patient and family declined. The patient himself agreed to go home today. Problems and management plan were discussed with the patient and he verbalized understanding and acceptance Patient was found stable and can be discharged home however he needs follow-up as an outpatient. Patient was instructed to follow up with PCP Dr. Galloway one week and patient agrees Patient also was instructed to follow up with his urologist Dr. Ordoñez in one week for his prostate problem and UTI, who verbalized understanding and acceptance Physical exam -Gen: patient is a AAOx3, with memory problem, no distress CVS: S1-S2, RRR, no murmur Lungs: B/L CTA, no wheezing Abdomen: soft, no distention, no tenderness, positive bowel sounds Extremity: no leg edema or induration Time spent more than 35 minutes Patient Condition at Discharge: Fair Plan - Discharge Summary New Discharge Prescriptions: New Amoxic-Pot Clav 875-125Mg [Augmentin 875-125] 1 each PO Q12HR #14 tab Docusate [Colace] 100 mg PO BID PRN 3 Days #6 cap PRN Reason: Constipation Omeprazole [PriLOSEC] 20 mg PO AC-BID #60 cap Continue Fluticasone/Salmeterol [Advair 250-50 Diskus] 1 puff INHALATION RT-BID Apixaban [Eliquis] 5 mg PO BID Metoprolol Succinate [Toprol XL] 25 mg PO HS Omeprazole 20 mg PO DAILY Mag Hydrox/Aluminum Hyd/Simeth [Mylanta Maximum Strength Liq] 30 ml PO DAILY PRN PRN Reason: Gi Upset Acetaminophen Tab [Tylenol] 650 mg PO Q6H PRN PRN Reason: Pain Sucralfate [Carafate] 1 gm PO TID Discontinued Pantoprazole [Protonix] 40 mg PO AC-BID #60 tablet.dr Discharge Medication List Fluticasone/Salmeterol [Advair 250-50 Diskus] 1 puff INHALATION RT-BID 02/28/14 [History] Apixaban [Eliquis] 5 mg PO BID 05/20/17 [History] Metoprolol Succinate [Toprol XL] 25 mg PO HS 07/08/20 [History] Acetaminophen Tab [Tylenol] 650 mg PO Q6H PRN 03/04/21 [History] Mag Hydrox/Aluminum Hyd/Simeth [Mylanta Maximum Strength Liq] 30 ml PO DAILY PRN 03/04/21 [History] Omeprazole 20 mg PO DAILY 03/04/21 [History] Sucralfate [Carafate] 1 gm PO TID 03/04/21 [History] Amoxic-Pot Clav 875-125Mg [Augmentin 875-125] 1 each PO Q12HR #14 tab 03/16/21 [Rx] Docusate [Colace] 100 mg PO BID PRN 3 Days #6 cap 03/16/21 [Rx] Omeprazole [PriLOSEC] 20 mg PO AC-BID #60 cap 03/16/21 [Rx] Follow up Appointment(s)/Referral(s): Francie Quiñones DO [Primary Care Provider] - 1-2 days (as scheduled in next few days ) [facility], [NON-STAFF] - Juvencio Welch MD [STAFF PHYSICIAN] - 1 Week (urologist ) Patient Instructions/Handouts: Constipation (GEN), Urinary Tract Infection in Men (DC), Weakness (GEN) Activity/Diet/Wound Care/Special Instructions: heart healthy diet activity is restricted till you see your doctor Discharge Disposition: HOME WITH HOME HEALTH SERVICES
== END 2021-03-16 12:29 | disposition home health service (06) ==
LOC: EC 09:21 → 6NMEDSUR 12:26
PROVIDERS: ADMIT Internal Medicine; ATTEND Internal Medicine
DX: G93.41 Metabolic encephalopathy (principal); N39.0 Urinary tract infection, site not specified; E78.5 Hyperlipidemia, unspecified; E86.0 Dehydration; F03.90 Unspecified dementia, unspecified severity, without behavioral disturbance, psychotic disturbance, mood disturbance, and anxiety; H91.90 Unspecified hearing loss, unspecified ear; I10 Essential (primary) hypertension; I48.91 Unspecified atrial fibrillation; J44.9 Chronic obstructive pulmonary disease, unspecified; K21.9 Gastro-esophageal reflux disease without esophagitis; N40.0 Benign prostatic hyperplasia without lower urinary tract symptoms; Z79.01 Long term (current) use of anticoagulants; Z85.828 Personal history of other malignant neoplasm of skin; Z86.73 Personal history of transient ischemic attack (TIA), and cerebral infarction without residual deficits; Z87.891 Personal history of nicotine dependence; Z90.3 Acquired absence of stomach [part of]; Z95.0 Presence of cardiac pacemaker
CPT/HCPCS: 96361 ×4; 96366 ×4; 96367; 96365; 99285; 36415; 94640 ×7; 94760 ×3; 93005; 80053; 80048; 83605; 84484; 85025 ×2; 85610; 85730; 81001; 87040; 87086; 87077; 87186; 71046; 70450; G0378 ×5; J0696 ×4; J0290

== ENCOUNTER 2021-04-13 19:14 | Inpatient (IN) | payer MEDICARE ==
[2021-04-13] MEDS ORDERED: HYDROmorphone 0.5 MG/0.5 ML SYRINGE IVP STA (21:19)
--- NOTE | 2021-04-13 21:23 | XR ---
EXAMINATION TYPE: XR Hip Complete RT, XR femur RT DATE OF EXAM: 04/13/2021 CLINICAL HISTORY: Pain after fall TECHNIQUE: AP and frogleg views of the right hip are obtained. In the lateral views of the right fem ur. COMPARISON: None. FINDINGS: Right hip-right femur: There is mildly comminuted and displaced intertrochanteric fracture of the rig ht femur. IMPRESSION: There is mildly comminuted and displaced intertrochanteric fracture of the right femur.
--- NOTE | 2021-04-13 21:27 | XR ---
EXAMINATION TYPE: XR shoulder complete RT DATE OF EXAM: 04/13/2021 CLINICAL HISTORY: Pain after fall. TECHNIQUE: Three views of the right shoulder are obtained. COMPARISON: None. FINDINGS: There is no acute fracture/dislocation evident in the right shoulder. The acromioclavicul ar and glenohumeral joint spaces appear within normal limits. The visualized ribs are intact and unr emarkable. Degenerative changes of the acromioclavicular and glenohumeral joint spaces. Some irregula rity and sclerosis of the greater tuberosity likely relates to rotator cuff tendinopathy. IMPRESSION: There is no acute fracture or dislocation in the right shoulder.
--- NOTE | 2021-04-13 21:29 | XR ---
EXAMINATION TYPE: XR chest 1V DATE OF EXAM: 04/13/2021 COMPARISON: NONE HISTORY: Pain after fall TECHNIQUE: Single frontal view of the chest is obtained. FINDINGS: There is no focal air space opacity, pleural effusion, or pneumothorax seen. The cardiac silhouette size is within normal limits. The osseous structures are intact. Left chest wall AICD with lead tips over the right atrium and right ventricle. Vertebroplasty cement over a lower thoracic vertebral body. IMPRESSION: No acute process.
[2021-04-13 22:09] LABS: Basophils % (A) 0 %; Eosinophils # (A) 0.1 k/uL (0-0.7); Eosinophils % (A) 2 %; HCT 31.9 % (39.0-53.0); HGB 10.9 gm/dL (13.0-17.5); Lymphocytes # (A) 0.6 k/uL (1.0-4.8); Lymphocytes % (A) 8 %; MCH 29.7 pg (25.0-35.0); MCHC 34.2 g/dL (31.0-37.0); MCV 86.6 fL (80.0-100.0); Mean Platelet Volume 8.2; Monocytes # (A) 0.5 k/uL (0-1.0); Monocytes % (A) 8 %; Neutrophils # (A) 5.2 k/uL (1.3-7.7); Neutrophils % (A) 79 %; Platelet Count 102 k/uL (150-450); RBC 3.68 m/uL (4.30-5.90); WBC 6.6 k/uL (3.8-10.6)
[2021-04-13 22:11] LABS: Albumin 3.1 g/dL (3.5-5.0); Calcium 9.2 mg/dL (8.4-10.2); Potassium 4.3 mmol/L (3.5-5.1); Total Protein 5.6 g/dL (6.3-8.2)
[2021-04-13 22:14] LABS: INR 1.1 (<1.2); Prothrombin Time 11.3 sec (9.0-12.0)
[2021-04-13 22:20] LABS: Partial Thromboplastin Time 18.7 sec (22.0-30.0)
--- NOTE | 2021-04-13 22:47 | CT ---
EXAMINATION TYPE: CT brain mamadou martinez DATE OF EXAM: 04/13/2021 COMPARISON: None HISTORY: fall, on blood thinners CT DLP: 1354.8 mGycm Automated exposure control for dose reduction was used. TECHNIQUE: CT scan of the head and cervical spine are performed without contrast. FINDINGS: There is no acute intracranial hemorrhage, mass effect, or midline shift identified. The ventricles and sulci are within normal limits in size. The globes are intact and the visualized sin uses are clear. Cervical spine is visualized in its entirety from C1 through upper thoracic levels and demonstrates s atisfactory alignment without evidence of acute fracture or dislocation. Prevertebral soft tissue ap pears within normal limits. The C1-C2 articulation is unremarkable. IMPRESSION: 1. There is no acute fracture or dislocation evident in the cervical spine. 2. No acute intracranial hemorrhage, mass effect, or midline shift is seen.
--- NOTE | 2021-04-13 23:23 | ED ---
Fall HPI - General Chief Complaint: Fall Stated Complaint: Fall, hip pain Time Seen by Provider: 04/13/21 19:37 Source: EMS Mode of arrival: EMS - History of Present Illness Initial Comments: 89-year-old male presents to emergency Department with a chief complaint of a fall. Patient reports he uses a cane to and late, he pulled a chair away prior to sitting down. Patient reports he fell mostly on the right side of his body but denies any significant head injuries. Patient reports this was a pure mechanical fall. He denies loss of consciousness. However, states he is on eliquis. Patient reports most of the pain is located in the right hip. He reports limited range of motion in the hip due to pain. Patient was brought to the ED via EMS without a c-collar in place. He was not given any analgesics prior to this. Patient states she does not want any analgesics at this time. Patient states the pain is minimal as long as he does not move it. - Related Data Home Medications Medication Instructions Recorded Confirmed Fluticasone/Salmeterol [Advair 1 puff INHALATION RT-BID 02/28/14 03/12/21 250-50 Diskus] Apixaban [Eliquis] 5 mg PO BID 05/20/17 03/12/21 Metoprolol Succinate [Toprol XL] 25 mg PO HS 07/08/20 03/12/21 Acetaminophen Tab [Tylenol] 650 mg PO Q6H PRN 03/04/21 03/12/21 Mag Hydrox/Aluminum Hyd/Simeth 30 ml PO DAILY PRN 03/04/21 03/12/21 [Mylanta Maximum Strength Liq] Omeprazole 20 mg PO DAILY 03/04/21 03/12/21 Sucralfate [Carafate] 1 gm PO TID 03/04/21 03/12/21 Previous Rx's Medication Instructions Recorded Amoxic-Pot Clav 875-125Mg 1 each PO Q12HR #14 tab 03/16/21 [Augmentin 875-125] Docusate [Colace] 100 mg PO BID PRN 3 Days #6 cap 03/16/21 Omeprazole [PriLOSEC] 20 mg PO AC-BID #60 cap 03/16/21 Allergies Allergy/AdvReac Type Severity Reaction Status Date / Time codeine AdvReac Intermediate Hallucinati Verified 03/12/21 11:19 ons atorvastatin [From Lipitor] AdvReac Nausea & Verified 03/12/21 11:19 Vomiting prednisone AdvReac agitated Verified 03/12/21 11:19 Review of Systems ROS Statement: Those systems with pertinent positive or pertinent negative responses have been documented in the HPI. ROS Other: All systems not noted in ROS Statement are negative. 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 History of Any Multi-Drug Resistant Organisms: None Reported Past Surgical History: Appendectomy, Cardiac Ablation, Cholecystectomy, Heart Catheterization, Pacemaker Additional Past Surgical History / Comment(s): 08/30/20 TURP, laparotomy for ulcer repair/partial gastrectomy, hemorrhoidectomy, colonoscopies, EGDs, bilateral cataract removals, skin cancer removed from face, occipital nerve injections. Past Anesthesia/Blood Transfusion Reactions: No Reported Reaction Type of Cardiac Device: Permanent Pacemaker Device Placement Date:: 2013 Past Psychological History: No Psychological Hx Reported Smoking Status: Former smoker Past Alcohol Use History: None Reported Past Drug Use History: None Reported - Past Family History Father Family Medical History: CVA/TIA Additional Family Medical History / Comment(s): Father had TIAs. He passed at the age of 82 yrs. Mother Family Medical History: Diabetes Mellitus Additional Family Medical History / Comment(s): AT AGE 76. General Exam Limitations: no limitations General appearance: alert, in no apparent distress Head exam: Present: atraumatic, normocephalic, normal inspection Eye exam: Present: normal appearance, PERRL, EOMI Pupils: Present: normal accommodation ENT exam: Present: normal exam, normal oropharynx, mucous membranes moist, TM's normal bilaterally, normal external ear exam Neck exam: Present: normal inspection, full ROM. Absent: tenderness, lymphadenopathy Respiratory exam: Present: normal lung sounds bilaterally. Absent: respiratory distress, wheezes, rales, rhonchi, stridor Cardiovascular Exam: Present: regular rate, normal rhythm, normal heart sounds GI/Abdominal exam: Present: soft. Absent: distended, tenderness, guarding, rebound, rigid Extremities exam: Present: normal inspection, full ROM, tenderness (Tenderness over the right hip), normal capillary refill, other (Palpable DP and PT bi laterally. Sensation intact in the right leg). Absent: pedal edema, joint swelling, calf tenderness Back exam: Present: normal inspection, full ROM. Absent: tenderness, CVA tenderness (R) Neurological exam: Present: alert, oriented X3 Psychiatric exam: Present: normal affect, normal mood Skin exam: Present: warm, dry, intact, normal color Course Vital Signs 04/13/21 19:20 Temperature 99.0 F Pulse Rate 75 Respiratory 16 Rate Blood Pressure 115/74 O2 Sat by Pulse 97 Oximetry Medical Decision Making - Medical Decision Making 89-year-old male presenting to the emergency department with a chief complaint of a fall.on physical examination, is neurovascularly intact in the right leg. X-rays of the right hip reveals a comminuted displaced fracture. CT of the b rain and C-spine is unremarkable. Laboratory works shows mild anemia of 10.9. Rest of laboratory work is relatively benign. I spoke to who will admit the patient for further medical management. He also requested consult to internal medicine. Initially patient declined any analgesics, later he requested. He was given Dilaudid. He did report improvement in symptoms. I spoke to Miada Navarro NP who will be consulted for Dr. Stevens. Case discussed with physician. - Lab Data Result diagrams: 04/13/21 21:30 04/13/21 21:30 Lab Results 04/13/21 04/13/21 04/13/21 Range/Units 21:30 21:30 21:30 WBC 6.6 (3.8-10.6) k/uL RBC 3.68 L (4.30-5.90) m/uL Hgb 10.9 L (13.0-17.5) gm/dL Hct 31.9 L (39.0-53.0) % MCV 86.6 (80.0-100.0) fL MCH 29.7 (25.0-35.0) pg MCHC 34.2 (31.0-37.0) g/dL RDW 14.0 (11.5-15.5) % Plt Count 102 L (150-450) k/uL MPV 8.2 Neutrophils % 79 % Lymphocytes % 8 % Monocytes % 8 % Eosinophils % 2 % Basophils % 0 % Neutrophils # 5.2 (1.3-7.7) k/uL Lymphocytes # 0.6 L (1.0-4.8) k/uL Monocytes # 0.5 (0-1.0) k/uL Eosinophils # 0.1 (0-0.7) k/uL Basophils # 0.0 (0-0.2) k/uL PT 11.3 (9.0-12.0) sec INR 1.1 (<1.2) APTT 18.7 L (22.0-30.0) sec Sodium 135 L (137-145) mmol/L Potassium 4.3 (3.5-5.1) mmol/L Chloride 106 (98-107) mmol/L Carbon Dioxide 23 (22-30) mmol/L Anion Gap 6 mmol/L BUN 23 H (9-20) mg/dL Creatinine 0.85 (0.66-1.25) mg/dL Est GFR (CKD-EPI)AfAm 89 (>60 ml/min/1.73 sqM) Est GFR (CKD-EPI)NonAf 77 (>60 ml/min/1.73 sqM) Glucose 192 H (74-99) mg/dL Calcium 9.2 (8.4-10.2) mg/dL Total Bilirubin 1.0 (0.2-1.3) mg/dL AST 32 (17-59) U/L ALT 20 (4-49) U/L Alkaline Phosphatase 60 (38-126) U/L Total Protein 5.6 L (6.3-8.2) g/dL Albumin 3.1 L (3.5-5.0) g/dL - EKG Data EKG Comments: Sinus rhythm Ventricular rate 96, GA 170, QRS 76, QTC 454. Disposition Clinical Impression: Fall, Closed right hip fracture Disposition: ADMITTED IP TO THIS HOSP Condition: Fair Is patient prescribed a controlled substance at d/c from ED?: No Referrals: Francie Quiñones DO [Primary Care Provider] - 1-2 days Time of Disposition: 23:23
[2021-04-13] MEDS ORDERED: NALOXONE 0.4 MG/ML 1 ML VIAL IV PRN (23:35)
[2021-04-13] MEDS ORDERED: ONDANSETRON 4 MG/2 ML VIAL IVP PRN (23:35)
[2021-04-14] MEDS: SODIUM CHLORIDE 0.9% 1,000 ML IV SCH ×2 (00:12→16:30)
[2021-04-14] MEDS: HYDROmorphone 0.5 MG/0.5 ML SYRINGE IVP PRN ×5 (01:30→21:49)
[2021-04-14] MEDS: SYMBICORT 80-4.5 MCG INHALER INHALATION SCH ×2 (10:02→21:18)
[2021-04-14] MEDS: ACETIC ACID/HYDROCORTISONE 2-1% DROPS 10 ML BTL BOTH EARS SCH ×3 (11:20→21:48)
[2021-04-14] MEDS: PANTOPRAZOLE 40 MG TABLET PO SCH (11:20)
--- NOTE | 2021-04-14 12:04 | P.HPOR ---
History of Present Illness H&P Date: 04/14/21 Chief Complaint: Right hip pain This is an 89-year-old gentleman with history of ground-level fall last evening when he pulled out a chair to sit and lost his balance. He landed directly on the right side. He had immediate pain in the right hip and shoulder. On exam and x-ray in the emergency department he was found to have an intertrochanteric fracture and we were consulted for orthopedic evaluation. The patient is admitted to our service for surgical intervention. He has past medical history of atrial fibrillation. He is on Eliquis. He also has history of prostate issues and recurrent urinary tract infections. Most recently he had a UTI approximately 6 weeks ago. 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 History of Any Multi-Drug Resistant Organisms: None Reported Past Surgical History: Appendectomy, Cardiac Ablation, Cholecystectomy, Heart Catheterization, Pacemaker Additional Past Surgical History / Comment(s): 08/30/20 TURP, laparotomy for ulcer repair/partial gastrectomy, hemorrhoidectomy, colonoscopies, EGDs, bila teral cataract removals, skin cancer removed from face, occipital nerve injections. Past Anesthesia/Blood Transfusion Reactions: No Reported Reaction Type of Cardiac Device: Permanent Pacemaker Device Placement Date:: 2013 Past Psychological History: No Psychological Hx Reported Additional Psychological History / Comment(s): Pt resides with his spouse. He uses a cane and walker when out. He can drive, spouse does most of the driving. Spouse manages his medications. Smoking Status: Former smoker Past Alcohol Use History: None Reported Additional Past Alcohol Use History / Comment(s): STARTED SMOKING AT AGE 22, SMOKED 1 PPD. HAD QUIT ONCE FOR 1O YEARS THEN RESTARTED AFTER OF SON, QUIT IN 1999. Past Drug Use History: None Reported - Past Family History Father Family Medical History: CVA/TIA Additional Family Medical History / Comment(s): Father had TIAs. He passed at the age of 82 yrs. Mother Family Medical History: Diabetes Mellitus Additional Family Medical History / Comment(s): AT AGE 76. Medications and Allergies Home Medications Medication Instructions Recorded Confirmed Type Fluticasone/Salmeterol [Advair 1 puff INHALATION RT-BID 02/28/14 04/13/21 His tory 250-50 Diskus] Apixaban [Eliquis] 5 mg PO BID 05/20/17 04/13/21 History Metoprolol Succinate [Toprol XL] 25 mg PO HS 07/08/20 04/13/21 History Acetaminophen Tab [Tylenol] 650 mg PO Q6H PRN 03/04/21 04/13/21 History Mag Hydrox/Aluminum Hyd/Simeth 30 ml PO DAILY PRN 03/04/21 04/13/21 History [Mylanta Maximum Strength Liq] Omeprazole 20 mg PO DAILY 03/04/21 04/13/21 History Sucralfate [Carafate] 1 gm PO TID 03/04/21 04/13/21 History Docusate [Colace] 100 mg PO BID PRN 3 Days #6 cap 03/16/21 04/13/21 Rx Acetic Acid/Hydrocortisone [Vosol 4 drops BOTH EARS TID 04/13/21 04/14/21 History Hc Otic] Amoxicillin 500 mg PO TID 04/13/21 04/13/21 History Allergies Allergy/AdvReac Type Severity Reaction Status Date / Time codeine AdvReac Intermediate Hallucinati Verified 04/13/21 23:48 ons atorvastatin [From Lipitor] AdvReac Nausea & Verified 04/13/21 23:48 Vomiting prednisone AdvReac agitated Verified 04/13/21 23:48 Physical Examination This is a pleasant 89-year-old gentleman in no acute distress. He has significant hearing impairment. is present at bedside and assists with his history. He is alert and oriented. Exam of the head neck reveal no obvious deformity. The patient has full cervical spine motion without difficulty or pain. Exam of the upper extremities reveals some pain with motion of the right shoulder. Mild pain with palpation to the shoulder. No pain to the left shoulder. He has full elbow, wrist and finger motion bilaterally. Neurovascular status to the upper extremities is intact. Exam of the lower extremities reveals shortening and external rotation to the right leg. He has full foot and ankle motion bilaterally. Pedal pulses are +2/4 bilaterally. Neurovascular status to the lower extremities is intact. Results X-rays of the pelvis and right hip reveal a comminuted displaced intertrochanteric fracture of the right hip. No other fractures identified. X-rays of the right shoulder reveal no fracture. 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 Superior subluxation of the humeral head consistent with chronic rotator cuff pathology. - Labs Labs: Abnormal Lab Results - Last 24 Hours (Table) 04/13/21 04/13/21 04/13/21 Range/Units 21:30 21:30 21:30 RBC 3.68 L (4.30-5.90) m/uL Hgb 10.9 L (13.0-17.5) gm/dL Hct 31.9 L (39.0-53.0) % Plt Count 102 L (150-450) k/uL Lymphocytes # 0.6 L (1.0-4.8) k/uL APTT 18.7 L (22.0-30.0) sec Sodium 135 L (137-145) mmol/L BUN 23 H (9-20) mg/dL Glucose 192 H (74-99) mg/dL Total Protein 5.6 L (6.3-8.2) g/dL Albumin 3.1 L (3.5-5.0) g/dL H & H 04/13/21 Range/Units 21:30 Hgb 10.9 L (13.0-17.5) gm/dL Hct 31.9 L (39.0-53.0) % Coagulation 04/13/21 Range/Units 21:30 INR 1.1 (<1.2) Result Diagrams: 04/13/21 21:30 04/13/21 21:30 Assessment and Plan (1) Right shoulder pain Current Visit: Yes Status: Acute Code(s): M25.511 - PAIN IN RIGHT SHOULDER SNOMED Code(s): 58086612 (2) Closed right hip fracture Current Visit: Yes Status: Acute Code(s): S72.001A - FRACTURE OF UNSP PART OF NECK OF RIGHT FEMUR, INIT SNOMED Code(s): 216804212 (3) Fall Current Visit: Yes Status: Acute Code(s): W19.XXXA - UNSPECIFIED FALL, INITIAL ENCOUNTER SNOMED Code(s): 9709029 Plan: The clinical and x-ray findings are discussed with the patient and his . It is recommended he undergo closed reduction with insertion of intertrochanteric nail right hip. The procedures discussed in detail including the possible risks and outcomes. He'll most likely require inpatient rehab postoperatively. We are awaiting presurgical clearance by internal medicine.
[2021-04-14] MEDS ORDERED: MAG HYDROX/AL HYDROX/SIMETH 30 ML CUP PO PRN (14:35)
[2021-04-14] MEDS ORDERED: DOCUSATE 100 MG CAP PO PRN (14:35)
--- NOTE | 2021-04-14 16:25 | ECHOF ---
Referral Reason:lvh, preop MEASUREMENTS -------- HEIGHT: 170.2 cm WEIGHT: 60.8 kg BP: IVSd: 1.1 cm (0.6 - 1.1) LVIDd: 2.8 cm (3.9 - 5.3) LVPWd: 1.1 cm (0.6 - 1.1) IVSs: 1.7 cm LVIDs: 1.5 cm LVPWs: 1.3 cm Ao Diam: 3.9 cm (2.0 - 3.7) AV Cusp: 2.5 cm (1.5 - 2.6) LA Diam: 3.2 cm (2.7 - 3.8) MV E Foster: 0.98 m/s MV DecT: 149 ms MV A Foster: 0.92 m/s MV E/A Ratio: 1.10 RAP: 5.00 mmHg RVSP: 13.89 mmHg FINDINGS -------- This was a technically difficult study with suboptimal views. The left ventricular size is normal. Left ventricular wall thickness is normal. Overall left vent ricular systolic function is normal with, an EF between 65 - 70 %. The right ventricle is normal in size. The left atrial size is normal. The right atrial size is normal. Lumason used The aortic valve is trileaflet and appears structurally normal. The mitral valve is normal. There is trace mitral regurgitation. The tricuspid valve appears structurally normal. Mild tricuspid regurgitation present. Right vent ricular systolic pressure is normal at < 35 mmHg. There is no pulmonic regurgitation present. The aortic root size is normal. IVC Not well visulized. There is no pericardial effusion. CONCLUSIONS -------- 1. The left ventricular size is normal. 2. Left ventricular wall thickness is normal. 3. Overall left ventricular systolic function is normal with, an EF between 65 - 70 %. 4. There is trace mitral regurgitation. 5. Mild tricuspid regurgitation present. 6. There is no pericardial effusion. SUPERVISOR DRYING: Nicol Brower RDCS
--- NOTE | 2021-04-14 17:33 | P.CRDCN ---
History of Present Illness Consult date: 04/14/21 History of present illness: This is a 89-year-old gentleman with history of of atrial fibrillation, previous TIA, status post ablation and also permanent pacemaker implantation who comes to the hospital after a fall. He is diagnosed to have hip fracture. We are asked to see the patient to clear him for surgery. This patient apparently had a spell of pneumonia, UTI following prostatectomy and also some encephalopathy. He was discharged home in February and apparently was recovering fairly well. He was trying to move a chair and fell and sustained a fracture. No history of chest pain or palpitations. No history of any syncope or loss of consciousness. Patient is very hard of hearing. Most of the information is gathered from the . He doesn't have any history of coronary artery disease. Her previous myocardial infarctions. His EKG showed sinus rhythm. His echo showed preserved LV function. Clinically he doesn't have any significant JVD or perip heral edema. Based on those facts, patient is being cleared for surgery. However given his age and other medical issues, his risk for surgery is more than average. No absolute contraindication at this time. Patient also has underlying pacemaker Review of Systems As per the chart Past Medical History Past Medical History: Unable to Obtain, Atrial Fibrillation, Cancer, COPD, CVA/TIA, GERD/Reflux, Hyperlipidemia, Pneumonia Additional Past Medical History / Comment(s): 06/2020 bacterial pneumonia/ence phalopathy/urinary retention pt states d/t a medication, UTI, BPH/surgery, TIA, occipital neuralgia, PUD with surgery, occasional dysphagia, hypotension, hyperlipidemia but pt does not tolerate statins, SSS/AV node disease, 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 History of Any Multi-Drug Resistant Organisms: None Reported Past Surgical History: Appendectomy, Cardiac Ablation, Cholecystectomy, Heart Catheterization, Pacemaker Additional Past Surgical History / Comment(s): 08/30/20 TURP, laparotomy for ulcer repair/partial gastrectomy, hemorrhoidectomy, colonoscopies, EGDs, bilateral cataract removals, skin cancer removed from face, occipital nerve injections. Past Anesthesia/Blood Transfusion Reactions: No Reported Reaction Type of Cardiac Device: Permanent Pacemaker Device Placement Date:: 2013 Past Psychological History: No Psychological Hx Reported Additional Psychological History / Comment(s): Pt resides with his spouse. He uses a cane and walker when out. He can drive, spouse does most of the driving. Spouse manages his medications. Smoking Status: Former smoker Past Alcohol Use History: None Reported Additional Past Alcohol Use History / Comment(s): STARTED SMOKING AT AGE 22, SMOKED 1 PPD. HAD QUIT ONCE FOR 1O YEARS THEN RESTARTED AFTER OF SON, QUIT IN 1999. Past Drug Use History: None Reported - Past Family History Father Family Medical History: CVA/TIA Additional Family Medical History / Comment(s): Father had TIAs. He passed at the age of 82 yrs. Mother Family Medical History: Diabetes Mellitus Additional Family Medical History / Comment(s): AT AGE 76. Medications and Allergies Home Medications Medication Instructions Recorded Confirmed Type Fluticasone/Salmeterol [Advair 1 puff INHALATION RT-BID 02/28/14 04/13/21 History 250-50 Diskus] Apixaban [Eliquis] 5 mg PO BID 05/20/17 04/13/21 History Metoprolol Succinate [Toprol XL] 25 mg PO HS 07/08/20 04/13/21 History Acetaminophen Tab [Tylenol] 650 mg PO Q6H PRN 03/04/21 04/13/21 History Mag Hydrox/Aluminum Hyd/Simeth 30 ml PO DAILY PRN 03/04/21 04/13/21 History [Mylanta Maximum Strength Liq] Omeprazole 20 mg PO DAILY 03/04/21 04/13/21 History Sucralfate [Carafate] 1 gm PO TID 03/04/21 04/13/21 History Docusate [Colace] 100 mg PO BID PRN 3 Days #6 cap 03/16/21 04/13/21 Rx Acetic Acid/Hydrocortisone [Vosol 4 drops BOTH EARS TID 04/13/21 04/14/21 History Hc Otic] Amoxicillin 500 mg PO TID 04/13/21 04/13/21 History Allergies Allergy/AdvReac Type Severity Reaction Status Date / Time codeine AdvReac Intermediate Hallucinati Verified 04/13/21 23:48 ons atorvastatin [From Lipitor] AdvReac Nausea & Verified 04/13/21 23:48 Vomiting prednisone AdvReac agitated Verified 04/13/21 23:48 Physical Exam Vitals: Vital Signs Temp Pulse Pulse Resp BP BP Pulse Ox 04/14/21 14:00 99.2 F 112 H 18 104/61 94 L 04/14/21 08:00 98.4 F 101 H 18 108/65 91 L 04/14/21 02:48 90 16 04/14/21 01:22 98.2 F 90 128/69 93 L 04/14/21 00:14 100 16 98/55 95 04/13/21 19:20 99.0 F 75 16 115/74 97 Intake and Output 04/14/21 04/14/21 04/14/21 06:59 14:59 22:59 Output Total 275 Balance -275 Output: Urine 275 Other: Voiding Method Urinal # Voids 2 Weight 60.781 kg GENERAL EXAM: Patient is alert and appears to be cachectic. No acute distress HEENT: Normocephalic. Normal reaction of pupils, equal size, normal range of extraocular motion. No erythema or exudates in the throat. NECK: No masses, no nuchal rigidity. CHEST: No chest wall deformity. LUNGS: Equal air entry with no crackles or wheeze. HEART: S1 and S2 normal with no audible mumurs or gallops. Regular rhythm, femorals equal on both sides.. ABDOMEN: No hepatosplenomegaly, normal bowel sounds, no guarding or rigidity. SKIN: No rashes CENTRAL NERVOUS SYSTEM: No focal deficits. EXTREMITIES: No cyanosis, clubbing or edema. Results 04/13/21 21:30 04/13/21 21:30 Cardiac Enzymes 04/13/21 Range/Units 21:30 AST 32 (17-59) U/L Coagulation 04/13/21 Range/Units 21:30 PT 11.3 (9.0-12.0) sec APTT 18.7 L (22.0-30.0) sec CBC 04/13/21 Range/Units 21:30 WBC 6.6 (3.8-10.6) k/uL RBC 3.68 L (4.30-5.90) m/uL Hgb 10.9 L (13.0-17.5) gm/dL Hct 31.9 L (39.0-53.0) % Plt Count 102 L (150-450) k/uL Comprehensive Metabolic Panel 04/13/21 Range/Units 21:30 Sodium 135 L (137-145) mmol/L Potassium 4.3 (3.5-5.1) mmol/L Chloride 106 (98-107) mmol/L Carbon Dioxide 23 (22-30) mmol/L BUN 23 H (9-20) mg/dL Creatinine 0.85 (0.66-1.25) mg/dL Glucose 192 H (74-99) mg/dL Calcium 9.2 (8.4-10.2) mg/dL AST 32 (17-59) U/L ALT 20 (4-49) U/L Alkaline Phosphatase 60 (38-126) U/L Total Protein 5.6 L (6.3-8.2) g/dL Albumin 3.1 L (3.5-5.0) g/dL Current Medications Generic Name Dose Route Start Last Admin Trade Name Freq PRN Reason Stop Dose Admin Acetaminophen 650 mg 04/14/21 14:35 Acetaminophen Tab 325 Mg Tab PO Q6H PRN Mild Pain Acetic Acid/Hydrocortisone 4 drops 04/14/21 09:00 04/14/21 16:31 Acetic Acid/Hydrocortisone 2-1% Drops 10 Ml Btl BOTH EARS 4 drops Q6H RYAN Administration Al Hydroxide/Mg Hydroxide 30 ml 04/14/21 14:35 Mag Hydrox/Al Hydrox/Simeth 30 Ml Cup PO DAILY PRN GI Upset Budesonide/Formoterol Fumarate 2 puff 04/14/21 08:00 04/14/21 10:02 Symbicort 80-4.5 Mcg Inhaler INHALATION Not Given RT-BID [facility] Docusate Sodium 100 mg 04/14/21 14:35 Docusate 100 Mg Cap PO BID PRN Constipation Hydromorphone HCl 0.5 mg 04/13/21 23:35 04/14/21 16:30 Hydromorphone 0.5 Mg/0.5 Ml Syringe IVP 0.5 mg Q3HR PRN Administration Moderate Pain Sodium Chloride 1,000 mls @ 75 mls/hr 04/13/21 23:45 04/14/21 16:30 Saline 0.9% IV Not Given .[id number] [facility] Metoprolol Succinate 25 mg 04/14/21 21:00 Metoprolol Succinate (Er) 25 Mg Tab.Er.24h PO HS [facility] Naloxone HCl 0.2 mg 04/13/21 23:35 Naloxone 0.4 Mg/Ml 1 Ml Vial IV Q2M PRN Opioid Reversal Ondansetron HCl 4 mg 04/13/21 23:35 Ondansetron 4 Mg/2 Ml Vial IVP Q8HR PRN Nausea And Vomiting Pantoprazole Sodium 40 mg 04/14/21 09:00 04/14/21 11:20 Pantoprazole 40 Mg Tablet PO Not Given AC-BRKFST RYAN Sucralfate 1 gm 04/14/21 17:30 Sucralfate 1 Gm Tab PO AC-TID RYAN Intake and Output 04/14/21 04/14/21 04/14/21 06:59 14:59 22:59 Output Total 275 Balance -275 Output: Urine 275 Other: Voiding Method Urinal # Voids 2 Weight 60.781 kg 04/13/21 21:30 04/13/21 21:30 EKG Interpretations (text) Sinus rhythm Assessment and Plan (1) History of atrial fibrillation Current Visit: Yes Status: Acute Code(s): Z86.79 - PERSONAL HISTORY OF OTHER DISEASES OF THE CIRCULATORY SYSTEM SNOMED Code(s): 246568283 (2) Closed right hip fracture Current Visit: Yes Status: Acute Code(s): S72.001A - FRACTURE OF UNSP PART OF NECK OF RIGHT FEMUR, INIT SNOMED Code(s): 302061300 (3) Fall Current Visit: Yes Status: Acute Code(s): W19.XXXA - UNSPECIFIED FALL, INITIAL ENCOUNTER SNOMED Code(s): 4389607 (4) History of TIA (transient ischemic attack) Current Visit: Yes Status: Acute Code(s): Z86.73 - PRSNL HX OF TIA (TIA), AND CEREB INFRC W/O RESID DEFICITS SNOMED Code(s): 337331572 (5) History of UTI Current Visit: Yes Status: Acute Code(s): Z87.440 - PERSONAL HISTORY OF URINARY (TRACT) INFECTIONS SNOMED Code(s): 6355935380837 Plan: Patient is being cleared for surgery. His anticoagulation is held for surgery. Needs to be resumed as soon as possible postsurgery. Continue rest of the medication. We'll follow
[2021-04-14] MEDS: SUCRALFATE 1 GM TAB PO SCH (17:38)
--- NOTE | 2021-04-14 20:45 | CONS ---
CONSULTATION DATE OF SERVICE: 04/14/2021 REASON FOR CONSULTATION: Advice regarding chronic obstructive pulmonary disease, gastroesophageal reflux disease and other multiple medical issues requested by surgery. HISTORY OF PRESENT ILLNESS: This 89-year-old gentleman with a past medical history of atrial fibrillation, history of COPD, CVA, TIA, GERD, hypertension, hyperlipidemia, admitted with right hip fracture which was sustained on fall. There is no history of syncope. The patient also had a pacemaker, history of cardiac ablation. The EKG showed sinus rhythm with heart rate about [address]-T changes. There is no history of fever, rigors. No history of headache, loss of consciousness, seizures. Hemoglobin 10.9, platelets 102. Sodium is 135 and the patient had multiple radiology evaluation including chest x-ray which was reviewed personally by me showed no acute changes at this time. There is no history of fever, rigors, chills at this time. PAST MEDICAL HISTORY: History of atrial fibrillation, history of COPD, CVA, TIA, GERD, hypertension, pneumonia. MEDICATIONS: Medications prior to admission include: Restoril, Carafate, amoxicillin, omeprazole, Toprol-XL, Mylanta, Advair, Colace, Eliquis, Tylenol. ALLERGIES: CODEINE, LIPITOR, PREDNISONE. FAMILY HISTORY: History of CVA, TIA in the family. SOCIAL HISTORY: Previous history of smoking. No history of current smoking or alcohol intake. REVIEW OF SYSTEMS: ENT: Diminished vision. Diminished hearing. CARDIOVASCULAR system: As mentioned earlier. RESPIRATORY: As mentioned earlier. GI: No nausea or vomiting. : No dysuria or hematuria. NERVOUS SYSTEM: No numbness, weakness. ALLERGY/IMMUNOLOGY: No asthma or hayfever. MUSCULOSKELETAL as mentioned earlier. HEMATOLOGY/ONCOLOGY: No history of anemia. ENDOCRINE: No history of diabetes or hypothyroidism. CONSTITUTIONAL: As mentioned earlier. DERMATOLOGY negative. RHEUMATOLOGY: Negative. PSYCHIATRY as mentioned earlier. PHYSICAL EXAMINATION: Alert and oriented x2. Pulse is 101. Blood pressure 108/64, respiration 18, temperature 98.4, pulse ox 91 percent on room air. HEENT: Conjunctivae normal. NECK: No JVD. CARDIOVASCULAR: S1, S2 muffled. RESPIRATORY SYSTEM: Breath sounds diminished at the bases. Scattered rhonchi. No crackles. ABDOMEN: Soft, nontender. No mass palpable. LEGS: No edema. No swelling. Status post right hip fracture. NERVOUS SYSTEM: Higher functions as mentioned earlier. Moves all 4 limbs. Right hip movements are painful. SKIN: No ulcers, rashes or bleeding. JOINTS: As mentioned earlier. LYMPHATICS: No lymph nodes palpable in the neck, axillae or groin. LAB STUDIES: WBC 6.9, hemoglobin 10.9, platelets 102. Sodium 135. ASSESSMENT: 1. Fall and right hip fracture. 2. Paroxysmal atrial fibrillation. 3. Anemia, normocytic anemia of chronic disease. 4. Mild thrombocytopenia. 5. Hyponatremia. 6. History of paroxysmal atrial fibrillation. 7. History of chronic obstructive pulmonary disease. 8. History of cerebrovascular accident, transient ischemic attack. 9. Gastroesophageal reflux disease. 10.Hyperlipidemia. 11.History of pneumonia. 12.History of encephalopathy. 13.History of peptic ulcer disease surgery. 14.History of dysphagia. 15.History of cardiac ablation. 16.History of cholecystectomy. 17.History of pacemaker. 18.Remote history of nicotine dependence. 19.FULL CODE. RECOMMENDATIONS AND DISCUSSION: This 89-year-old gentleman presented with multiple complex medical issues, at this time I recommend continue the current medications, management and symptomatic treatment. Resume the home medications. DVT prophylaxis. Incentive spirometry. Monitor platelets closely. Otherwise, the patient is cleared for surgery. I would also recommend Cardiology consultation as well. Prognosis guarded. Discussed with the family who understands and agrees. UA with micro also will be sought. A copy of this dictation is being forwarded to Dr. Quiñones, who is the primary physician. MMZACH / LOGAN: [id number] / [email or web address]
[2021-04-14 21:14] LABS: Appearance,Urine Cloudy (Clear); Bilirubin,Urine Negative (Negative); Blood,Urine Negative (Negative); Color,Urine Yellow; Glucose,Urine (UA) Negative (Negative); Hyaline Casts,Urine 1 /lpf (0-2); Ketones,Urine Negative (Negative); Leukocyte Esterase,Urine Trace (Negative); Mucus,Urine Rare /hpf; Nitrite,Urine Negative (Negative); Protein,Urine Negative (Negative); RBC,Urine 2 /hpf (0-5); Specific Gravity,Urine 1.023 (1.001-1.035); Squamous Epithelial Cell,Urine 1 /hpf (0-4); Urobilinogen,Urine <2.0 mg/dL (<2.0); WBC,Urine 3 /hpf (0-5)
[2021-04-14] MEDS: METOPROLOL SUCCINATE (ER) 25 MG TAB.ER.24H PO SCH (21:48)
[2021-04-15] MEDS ORDERED: METOPROLOL SUCCINATE (ER) 25 MG TAB.ER.24H PO STA (02:03)
[2021-04-15] MEDS: ACETIC ACID/HYDROCORTISONE 2-1% DROPS 10 ML BTL BOTH EARS SCH ×4 (02:19→23:27)
[2021-04-15] MEDS: SODIUM CHLORIDE 0.9% 1,000 ML IV SCH ×2 (02:19→14:17)
--- NOTE | 2021-04-15 04:57 | XR ---
EXAMINATION TYPE: XR chest 1V portable DATE OF EXAM: 04/15/2021 COMPARISON: 04/13/2021 HISTORY: Surgical clearance TECHNIQUE: Single view FINDINGS: Heart size is normal. There is some blunting left costophrenic angle. There is no gross hea rt failure. There is left axillary pacemaker. There are chest leads. IMPRESSION: There is some new atelectasis and pleural reaction at the left lung base compared to rece nt exam.
[2021-04-15] MEDS: HYDROmorphone 0.5 MG/0.5 ML SYRINGE IVP PRN ×3 (04:59→18:16)
[2021-04-15] MEDS: SYMBICORT 80-4.5 MCG INHALER INHALATION SCH ×2 (07:35→20:52)
[2021-04-15] MEDS: SUCRALFATE 1 GM TAB PO SCH ×3 (08:55→16:58)
[2021-04-15] MEDS: PANTOPRAZOLE 40 MG TABLET PO SCH (08:55)
[2021-04-15] MEDS ORDERED: SUCCINYLCHOLINE CHLORIDE 100 MG/5 ML SYR IV ONE (09:12)
[2021-04-15] MEDS ORDERED: LIDOCAINE 1% INJ 10MG/ML (20 ML MDV) ONE (09:12)
[2021-04-15] MEDS ORDERED: PHENYLEPHRINE-0.9% NACL SYG 1,000 MCG/10 ML SYRINGE ONE (09:12)
[2021-04-15] MEDS ORDERED: NEOSTIGMINE 1 MG/ML 10 ML VIAL ONE (09:12)
[2021-04-15] MEDS ORDERED: GLYCOPYRROLATE 0.2 MG/ML 2 ML VIAL ONE (09:12)
[2021-04-15] MEDS ORDERED: ROCURONIUM 10 MG/ML (5 ML VIAL) IV ONE (09:12)
[2021-04-15] MEDS ORDERED: PROPOFOL 10 MG/ML 20 ML VIAL IV ONE (09:12)
[2021-04-15] MEDS ORDERED: fentaNYL (PF) 50 MCG/ML 2 ML AMP ONE (09:12)
[2021-04-15] MEDS ORDERED: LACTATED RINGERS 1,000 ML IV ONE ×2 (09:17→10:43)
[2021-04-15] MEDS ORDERED: SODIUM CHLORIDE 0.9% 100 ML with ceFAZolin 2 GM IV ONE ×2 (09:55)
[2021-04-15] MEDS ORDERED: ceFAZolin 1,000 MG in SODIUM CHLORIDE 0.9% 1,000 ML IRRIGATION ONE (09:58)
--- NOTE | 2021-04-15 11:04 | XR ---
Postoperative right hip. HISTORY: Open reduction internal fixation of right hip fracture. COMPARISON: None. TECHNIQUE: 3 intraoperative portable x-rays of the right hip are obtained following open reduction in ternal fixation for right hip fracture. There is a transfemoral neck screw and intramedullary rose in the proximal right femur. There appears to be near anatomic alignment.
[2021-04-15] MEDS ORDERED: MAGNESIUM HYDROXIDE 2,400 MG/10 ML CUP PO PRN (11:10)
[2021-04-15] MEDS ORDERED: HYDROmorphone 0.2 MG/1 ML SYRINGE IVP PRN (11:10)
[2021-04-15] MEDS ORDERED: TEMAZEPAM 15 MG CAP PO PRN (11:10)
[2021-04-15] MEDS ORDERED: HYDROmorphone 0.5 MG/0.5 ML SYRINGE IVP PRN (11:10)
[2021-04-15] MEDS ORDERED: NALOXONE 0.4 MG/ML 1 ML VIAL IV PRN (11:10)
--- NOTE | 2021-04-15 11:14 | P.OP ---
Date of Procedure: 04/15/21 Preoperative Diagnosis: 1. Right intertrochanteric hip fracture 2. Osteoporosis with prior fragility fracture 3. Coronary artery disease Postoperative Diagnosis: Same Procedure(s) Performed: Operative fixation of right intertrochanteric hip fracture with short intramedullary hip screw Anesthesia: WIL Surgeon: Martin Banda Estimated Blood Loss (ml): 100 IV fluids (ml): 700 Pathology: none sent Condition: stable Disposition: PACU Indications for Procedure: The patient is an 89-year-old male with multiple medical problems who sustained a ground-level fall dancing resulting in a right intertrochanteric hip fracture. He was admitted under my care to the emergency department. He was seen by both internal medicine and cardiology preoperatively and was cleared for surgery with moderate to high risk. I met with the patient before surgery to discuss treatment. I recommended operative fixation with intramedullary hip screw to facilitate early ambulation and mobilization. We discussed potential risks of surgery including but certainly not limited to risk of anesthesia, infection, delayed wound healing, nonunion, malunion, hardware failure, lag screw cut out varus collapse, periprosthetic fracture, inability to regain preinjury level of function, failure to thrive, need for further surgery, DVT, PE, acute coronary event, pneumonia, pressure sores, and possibly loss of life. The patient voiced his understanding of these potential complications will also acknowledging that other less common complications are possible. He provided his verbal and written consent to go forward with surgery. Description of Procedure: The patient was identified in preoperative holding and the correct right leg was marked with my initials. I reviewed the consent form with the patient all of his questions were answered. The patient was then brought back to the operating room by anesthesia. He was given a general anesthetic and preoperative antibiotics. Panic table boots were placed on the gurney. The patient was then carefully transferred onto the hand table. A perineal post was placed. His white arm was carefully padded and draped across his chest to facilitate operative access to his right hip. All bony prominences were well-padded. A timeout was then performed identifying the correct patient, operative extremity, and procedure. I then reduced the right hip with a combination of longitudinal traction, internal rotation, and adduction of the leg. Biplanar fluoroscopy was used to verify reduction of the fracture. The leg was then preprepped with a chlorhexidine scrub brush and then prepped and draped in the standard sterile fashion. A second timeout was performed identifying the correct patient operative extremity and procedure. I began by making a longitudinal incision just proximal to the tip of the greater trochanter over the lateral hip. A sharp awl was placed just medial to the tip of the greater trochanter on the AP view and in line with the canal the lateral view. It was advanced into the femur and a 3.2 mm guide pin was placed through the awl. An opening reamer was used. A short nail was dispensed and hooked up to the targeting arm. I verified that the sleeves lined up with the slots in the nail. The nail was then inserted and the proximal femur. A stab incision was made over the lateral aspect of the femur at the site of the lag screw. Stab incision was made and dissection was carried out the lateral femur. A guidepin was placed up into the low center position in the femoral head and verified on biplanar fluoroscopy. The guidepin was measured, reamed, and a lag screw was placed. The set screws placed proximally and was brought back to Court return to allow for compression. I then placed a distal interlocking screw through the targeting arm. The targeting arm was removed and final fluoroscopic images were taken. All 3 wounds were thoroughly irrigated and closed in layers. Sterile dressings were applied. The patient was taken off a had a table, extubated, and brought to recovery having tolerated the procedure well. Plan: The patient can weight-bear as tolerated on his operative extremity. DVT prophylaxis: Can resume Eliquis tomorrow. Internal medicine for perioperative medical management. Discharge planning process.
[2021-04-15] MEDS: LACTATED RINGERS 1,000 ML IV SCH ×2 (11:44→23:29)
[2021-04-15 12:53] LABS: African American GFR (CKD) 87.5 (60.0-200.0); Anion Gap 0.1 mmol/L (4.00-12.00); BUN/Creat Ratio 27.78 Ratio (12.00-20.00); Carbon Dioxide 28.9 mmol/L (21.6-31.8); Non-African American GFR(CKD) 75.5 (60.0-200.0); Potassium 4.5 mmol/L (3.5-5.5)
[2021-04-15 13:08] LABS: Basophils # (A) 0.02 X 10*3/uL (0.00-0.10); Basophils % (A) 0.4 %; Eosinophils # (A) 0.07 X 10*3/uL (0.04-0.35); Eosinophils % (A) 1.4 %; HCT 22.6 % (39.6-50.0); HGB 7.4 g/dL (13.0-17.0); Lymphocytes # (A) 0.72 X 10*3/uL (0.90-5.00); Lymphocytes % (A) 14.3 %; MCH 29.4 pg (27.0-32.0); MCHC 32.7 g/dL (32.0-37.0); MCV 89.7 fL (80.0-97.0); Mean Platelet Volume 10.8 fL (9.5-12.2); Monocytes # (A) 1.12 X 10*3/uL (0.20-1.00); Monocytes % (A) 22.2 %; Neutrophils % (A) 61.3 %; Platelet Count 88 X 10*3/uL (140-440); RBC 2.52 X 10*6/uL (4.40-5.60); WBC 5.05 X 10*3/uL (4.50-10.00)
--- NOTE | 2021-04-15 20:42 | PN ---
PROGRESS NOTE DATE OF SERVICE: 04/15/2021 This 89-year-old gentleman who was admitted with a fall and right hip fracture underwent operative fixation of right intertrochanteric hip fracture and short intramedullary hip screw by Dr. Banda. No chest pain. No palpitations. No fever. Past medical history reviewed. PHYSICAL EXAMINATION: Alert and oriented x3. Pulse 77, blood pressure 120/52, respiration 18, temperature 97.8, pulse ox 93% on 3 L. HEENT: Conjunctivae normal. NECK: No jugular venous distention. CARDIOVASCULAR: S1, S2 muffled. RESPIRATION: Breath sounds diminished at the bases. A few scattered rhonchi. No crackles. ABDOMEN: Soft, nontender. LEGS: NERVOUS SYSTEM: No focal deficit. LABS: Hemoglobin has dropped to 7.4. Platelets 88 also. REVIEW OF SYSTEMS: CARDIOVASCULAR SYSTEM: No angina. RESPIRATION: As mentioned earlier. GI: As mentioned earlier. : No dysuria. NERVOUS SYSTEM: No numbness, weakness. CURRENT MEDICATIONS: Reviewed. They include Tylenol, Symbicort, cefazolin, Colace, Dilaudid. Doses are reviewed. ASSESSMENT: 1. Status post fall and right hip intertrochanteric fracture and short intramedullary hip screw. 2. Anemia, possibly blood-loss anemia. 3. Thrombocytopenia. 4. Hyponatremia. 5. Paroxysmal atrial fibrillation. 6. Mild thrombocytopenia. 7. Hyponatremia. 8. History of paroxysmal atrial fibrillation. 9. History of chronic obstructive pulmonary disease. 10.History of cerebrovascular accident, transient ischemic attack. 11.Gastroesophageal reflux disease. 12.Hyperlipidemia. 13.History of pneumonia. 14.History of encephalopathy. 15.History of peptic ulcer disease and surgery. 16.History of dysphagia. 17.History of cardiac ablation. 18.History of cholecystectomy. 19.History of pacemaker. 20.Remote history of nicotine dependence. 21.FULL CODE. RECOMMENDATIONS AND DISCUSSION: In this 89-year-old gentleman who presented with multiple complex medical issues, we will monitor the patient closely, continue the current medications, continue with symptomatic treatment. Otherwise at this time I would also recommend repeat labs, incentive spirometry, DVT prophylaxis. I also recommend one unit transfusion because hemoglobin has dropped to 7.4 at this time. The prognosis is guarded. Further recommendations to follow. MMODL / IJN: [id number] /
[2021-04-15] MEDS: SENNOSIDES-DOCUSATE SODIUM 1 EACH TAB PO SCH (23:28)
[2021-04-15] MEDS: METOPROLOL SUCCINATE (ER) 25 MG TAB.ER.24H PO SCH (23:28)
[2021-04-15] MEDS: DOCUSATE 100 MG CAP PO SCH (23:28)
[2021-04-16] MEDS: ACETIC ACID/HYDROCORTISONE 2-1% DROPS 10 ML BTL BOTH EARS SCH ×4 (03:04→21:59)
[2021-04-16] MEDS: HYDROmorphone 0.5 MG/0.5 ML SYRINGE IVP PRN ×2 (05:55→08:55)
[2021-04-16] MEDS: SODIUM CHLORIDE 0.9% 1,000 ML IV SCH (05:55)
[2021-04-16 07:25] LABS: African American GFR (CKD) >90 (>60 ml/min/1.73 sqM); Anion Gap 4 mmol/L; Blood Urea Nitrogen 23 mg/dL (9-20); Calcium 7.8 mg/dL (8.4-10.2); Carbon Dioxide 25 mmol/L (22-30); Chloride 105 mmol/L (98-107); Glucose 128 mg/dL (74-99); Non-African American GFR(CKD) 83 (>60 ml/min/1.73 sqM); Potassium 4.2 mmol/L (3.5-5.1); Sodium 134 mmol/L (137-145)
[2021-04-16 07:26] LABS: Basophils % (A) 0 %; Eosinophils # (A) 0.1 k/uL (0-0.7); Eosinophils % (A) 1 %; HCT 23.8 % (39.0-53.0); Lymphocytes # (A) 0.6 k/uL (1.0-4.8); Lymphocytes % (A) 13 %; MCH 30.5 pg (25.0-35.0); MCHC 34.6 g/dL (31.0-37.0); MCV 88.1 fL (80.0-100.0); Mean Platelet Volume 9.9; Monocytes # (A) 0.5 k/uL (0-1.0); Monocytes % (A) 11 %; Neutrophils # (A) 3.5 k/uL (1.3-7.7); Neutrophils % (A) 71 %; RDW 14.2 % (11.5-15.5); WBC 4.9 k/uL (3.8-10.6)
[2021-04-16 07:28] LABS: HGB 8.3 gm/dL (13.0-17.5)
--- NOTE | 2021-04-16 07:36 | FL ---
Fluoroscopy INDICATION: Pain FINDINGS: Fluoroscopy time: 1 minute 32 seconds. Images obtained: 0. IMPRESSIONS: 1. Documentation of fluoroscopy.
[2021-04-16] MEDS: SYMBICORT 80-4.5 MCG INHALER INHALATION SCH ×2 (08:14→19:47)
[2021-04-16] MEDS: SUCRALFATE 1 GM TAB PO SCH ×3 (08:55→17:05)
[2021-04-16] MEDS: traMADol 50 MG TAB PO PRN (08:55)
[2021-04-16] MEDS: ACETAMINOPHEN TAB 325 MG TAB PO PRN ×2 (08:56→17:05)
[2021-04-16] MEDS: DOCUSATE 100 MG CAP PO SCH ×2 (08:56→21:59)
[2021-04-16] MEDS: PANTOPRAZOLE 40 MG TABLET PO SCH (08:57)
[2021-04-16] MEDS: LACTATED RINGERS 1,000 ML IV SCH (09:35)
[2021-04-16 09:51] LABS: Platelet Count 79 k/uL (150-450)
--- NOTE | 2021-04-16 10:07 | P.PN ---
Subjective Progress Note Date: 04/16/21 This patient is an 89-year-old male who is status-post operative fixation of right intertrochanteric hip fracture with short intramedullary hip screw. Today's postoperative day #1. Patient is seen and examined bedside. He states the pain in his right hip is well-controlled. He has not yet been up with physical therapy. Patient was transfused 1 unit of PRBCs for internal medicine yesterday. Hemoglobin is 8.3 this morning. No complete or concerns this morning. Patient denies chest pain, shortness of breath, nausea, vomiting, fevers, chills. Vital signs stable. Objective - Vital Signs Vital signs: Vital Signs Temp 97.9 F 04/16/21 08:00 Pulse 83 04/16/21 08:00 Resp 18 04/16/21 08:00 BP 105/57 04/16/21 08:00 Pulse Ox 96 04/16/21 09:55 Intake & Output 04/15/21 04/16/21 04/16/21 18:59 06:59 18:59 Intake Total 1391 310 Output Total 1200 100 Balance 191 210 Intake: IV 851 Oral 540 Blood Product 310 Rc Cpda-1 Unit 310 [id number] Output: Urine 1050 100 Straight 450 Post Void Residual 50 Estimated Blood Loss 100 Other: Voiding Method Urinal Urinal - Exam On examination, the patient is sitting up in bed in no apparent distress. He is alert and oriented 3. On inspection of the right hip, there are [address] The proximal dressing is saturated with blood. The 2 distal dressings are clean, dry, intact with no drainage or bleeding. There is mild swelling of the thigh. The thigh soft and compressible. Patient has good strength [id number] of the right ankle. Motor and sensory function is intact of the right lower extremity. Right lower extremity is warm and well- perfused. Calves are soft and nontender to palpation bilaterally. Proximal surgical dressing was changed bedside this morning.The surgical incision is healing well with no signs of infection. Intact dana. No active bleeding or drainage of the incision. - Labs CBC & Chem 7: 04/16/21 07:01 04/16/21 07:01 Labs: Abnormal Lab Results - Last 24 Hours (Table) 04/15/21 04/15/21 04/15/21 Range/Units 06:09 06:09 18:49 RBC 2.52 L (4.40-5.60) X 10*6/uL Hgb 7.4 L (13.0-17.0) g/dL Hct 22.6 L (39.6-50.0) % Plt Count 88 L (140-440) X 10*3/uL Plt Count Comment DECREASED A Lymphocytes # 0.72 L (0.90-5.00) X 10*3/uL Monocytes # 1.12 H (0.20-1.00) X 10*3/uL Sodium (137-145) mmol/L Anion Gap 0.10 L (4.00-12.00) mmol/L BUN (9-20) mg/dL BUN/Creatinine Ratio 27.78 H (12.00-20.00) Ratio Glucose 124 H (70-110) mg/dL Calcium 8.0 L (8.7-10.3) mg/dL Crossmatch See Detail 04/16/21 04/16/21 Range/Units 07:01 07:01 RBC 2.70 L (4.40-5.60) X 10*6/uL Hgb 8.3 L D (13.0-17.0) g/dL Hct 23.8 L (39.6-50.0) % Plt Count 79 L (140-440) X 10*3/uL Plt Count Comment Lymphocytes # 0.6 L (0.90-5.00) X 10*3/uL Monocytes # (0.20-1.00) X 10*3/uL Sodium 134 L (137-145) mmol/L Anion Gap (4.00-12.00) mmol/L BUN 23 H (9-20) mg/dL BUN/Creatinine Ratio (12.00-20.00) Ratio Glucose 128 H (70-110) mg/dL Calcium 7.8 L (8.7-10.3) mg/dL Crossmatch Assessment and Plan Assessment: Status-post operative fixation of right intertrochanteric hip fracture with short intramedullary hip screw on 04/15/21. Postoperative day #1. Plan: - Patient may weight-bear as tolerated on the right lower extremity with a walker. Up with assistance. - Physical therapy for gait and balance training. - Resume Eliquis for DVT prophylaxis. - Pain management as needed. - Perioperative medical management per internal medicine and cardiology. - Social work consulted for discharge planning. Anticipate discharge to rehab within next 1-2 days, pending medical clearance.
[2021-04-16] MEDS: APIXABAN 5 MG TAB PO SCH ×2 (11:26→21:59)
--- NOTE | 2021-04-16 15:38 | P.PN ---
Subjective Progress Note Date: 04/16/21 This is an 89-year-old male who was recently admitted with a fall and subsequent right hip fracture and underwent internal fixation of the right intertrochanteric hip fracture and short intramedullary hip screw and is being closely followed and monitored by orthopedics. Family at the bedside concerned with narcotic use and will limit use of current narcotics to strictly Ultram and Tylenol as needed. Patient was receiving IV Dilaudid and this will be discontinued. Speech therapy also consulted to reevaluate patient's swallow as the patient along with family member states he has been having difficulty with swallowing and choking on his meals. Recommend strict aspiration precautions and one-to-one supervision with meals and await speech therapy recommendations. Patient has been having multiple episodes of urinary retention requiring straight cath and will start Flomax and initiate indwelling [place] catheter. Patient will need outpatient follow-up with urology once more stable. PT/OT to e valuate for ECF placement. Patient's hemoglobin today is 8.3 status post 1 unit of PRBCs yesterday. Review of systems: Constitutional: reports of fatigue, no reports of fever, or chills Cardiovascular: No reports of chest pain or palpitations Respiratory: No reports of shortness of breath or cough GI: No reports of nausea, vomiting, or diarrhea : No reports of dysuria, retaining urine Neurovascular: reports generalized weakness All medications have been reviewed Active Medications Acetaminophen (Acetaminophen Tab 325 Mg Tab) 650 mg PO Q6H PRN PRN Reason: Mild Pain Last Admin: 04/16/21 08:56 Dose: 650 mg Documented by: Acetic Acid/Hydrocortisone (Acetic Acid/Hydrocortisone 2-1% Drops 10 Ml Btl) 4 drops BOTH EARS Q6H [facility] Last Admin: 04/16/21 11:32 Dose: 4 drops Documented by: Al Hydroxide/Mg Hydroxide (Mag Hydrox/Al Hydrox/Simeth 30 Ml Cup) 30 ml PO DAILY PRN PRN Reason: GI Upset Last Admin: 04/15/21 14:08 Dose: 30 ml Documented by: Apixaban (Apixaban 5 Mg Tab) 5 mg PO BID [facility]; Protocol Last Admin: 04/16/21 11:26 Dose: 5 mg Documented by: Budesonide/Formoterol Fumarate (Symbicort 80-4.5 Mcg Inhaler) 2 puff INHALATION RT-BID [facility] Last Admin: 04/16/21 08:14 Dose: 2 puff Documented by: Docusate Sodium (Docusate 100 Mg Cap) 100 mg PO BID [facility] Last Admin: 04/16/21 08:56 Dose: 100 mg Documented by: Magnesium Hydroxide (Magnesium Hydroxide 2,400 Mg/10 Ml Cup) 2,400 mg PO DAILY PRN PRN Reason: Constipation Last Admin: 04/15/21 16:58 Dose: 2,400 mg Documented by: Metoprolol Succinate (Metoprolol Succinate (Er) 25 Mg Tab.Er.24h) 25 mg PO HS [facility] Last Admin: 04/15/21 23:28 Dose: 25 mg Documented by: Naloxone HCl (Naloxone 0.4 Mg/Ml 1 Ml Vial) 0.2 mg IV Q2M PRN PRN Reason: Opioid Reversal Ondansetron HCl (Ondansetron 4 Mg/2 Ml Vial) 4 mg IVP Q8HR PRN PRN Reason: Nausea And Vomiting Pantoprazole Sodium (Pantoprazole 40 Mg Tablet) 40 mg PO AC-BRKFST [facility] Last Admin: 04/16/21 08:57 Dose: 40 mg Documented by: Senna/Docusate Sodium (Sennosides-Docusate Sodium 1 Each Tab) 2 each PO [facility] Last Admin: 04/15/21 23:28 Dose: 2 each Documented by: Sucralfate (Sucralfate 1 Gm Tab) 1 gm PO AC-TID [facility] Last Admin: 04/16/21 11:31 Dose: 1 gm Documented by: Temazepam (Temazepam 15 Mg Cap) 15 mg PO HS PRN PRN Reason: Insomnia Tramadol HCl (Tramadol 50 Mg Tab) 50 mg PO Q6HR PRN PRN Reason: Pain Scale 1 to 5 Last Admin: 04/16/21 08:55 Dose: 50 mg Documented by: Physical exam: Gen: This is a 89-year-old male awake, alert and oriented 3, thin built. HEENT: Head is atraumatic, normocephalic. Pupils equal, round. Sclerae is anicteric. NECK: Supple. No JVD. No lymphadenopathy. No thyromegaly. LUNGS: Diminished breath sounds bilaterally with no wheezing or rhonchi noted. No intercostal retractions. HEART: S1, S2 are muffled ABDOMEN: Soft. Bowel sounds are present. No masses. No tenderness. EXTREMITIES: No pedal edema. No calf tenderness. Right lower extremity discomfort and surgical dressing is dry and intact NEUROLOGICAL: Patient is awake, alert and oriented x3. Diffusely weak. Assessment: Status post fall and right hip intertrochanteric fracture and short intramedullary hip screw Anemia, possibly acute blood loss anemia secondary to surgery Thrombocytopenia Hyponatremia Paroxysmal atrial fibrillation History of chronic obstructive pulmonary disease, not in acute exacerbation History of CVA, TIA GERD Hyperlipidemia History of dysphagia Full code Plan: Awaiting speech eval to assess swallow. Patient has been retaining with multiple straight cath and will place indwelling [place] catheter and start Flomax 0.4 mg daily. PT/OT evaluation for possible ECF. Will continue to follow along with orthopedics during hospitalization. Hemoglobin is stable today with no a ctive bleeding noted and will repeat labs and monitor closely. Recommend limiting the use of narcotics as patient becomes sedated and did receive IV Dilaudid last night. Will continue Tylenol and Ultram as needed. Family At the bedside is agreeable with this. Objective - Vital Signs Vital signs: Vital Signs Temp 97.9 F 04/16/21 08:00 Pulse 83 04/16/21 08:00 Resp 18 04/16/21 08:00 BP 105/57 04/16/21 08:00 Pulse Ox 90 L 04/16/21 08:00 Intake & Output 04/15/21 04/16/21 04/16/21 18:59 06:59 18:59 Intake Total 1391 310 Output Total 1200 100 Balance 191 210 Intake: IV 851 Oral 540 Blood Product 310 Rc Cpda-1 Unit 310 [id number] Output: Urine 1050 100 Straight 450 Post Void Residual 50 Estimated Blood Loss 100 Other: Voiding Method Urinal Urinal - Labs CBC & Chem 7: 04/16/21 07:01 04/16/21 07:01 Labs: Abnormal Lab Results - Last 24 Hours (Table) 04/15/21 04/15/21 04/15/21 Range/Units 06:09 06:09 18:49 RBC 2.52 L (4.40-5.60) X 10*6/uL Hgb 7.4 L (13.0-17.0) g/dL Hct 22.6 L (39.6-50.0) % Plt Count 88 L (140-440) X 10*3/uL Plt Count Comment DECREASED A Lymphocytes # 0.72 L (0.90-5.00) X 10*3/uL Monocytes # 1.12 H (0.20-1.00) X 10*3/uL Sodium (137-145) mmol/L Anion Gap 0.10 L (4.00-12.00) mmol/L BUN (9-20) mg/dL BUN/Creatinine Ratio 27.78 H (12.00-20.00) Ratio Glucose 124 H (70-110) mg/dL Calcium 8.0 L (8.7-10.3) mg/dL Crossmatch See Detail 04/16/21 04/16/21 Range/Units 07:01 07:01 RBC 2.70 L (4.40-5.60) X 10*6/uL Hgb 8.3 L D (13.0-17.0) g/dL Hct 23.8 L (39.6-50.0) % Plt Count (140-440) X 10*3/uL Plt Count Comment Lymphocytes # (0.90-5.00) X 10*3/uL Monocytes # (0.20-1.00) X 10*3/uL Sodium 134 L (137-145) mmol/L Anion Gap (4.00-12.00) mmol/L BUN 23 H (9-20) mg/dL BUN/Creatinine Ratio (12.00-20.00) Ratio Glucose 128 H (70-110) mg/dL Calcium 7.8 L (8.7-10.3) mg/dL Crossmatch
[2021-04-16] MEDS: METOPROLOL SUCCINATE (ER) 25 MG TAB.ER.24H PO SCH (21:59)
[2021-04-16] MEDS: SENNOSIDES-DOCUSATE SODIUM 1 EACH TAB PO SCH (21:59)
[2021-04-17] MEDS: ACETIC ACID/HYDROCORTISONE 2-1% DROPS 10 ML BTL BOTH EARS SCH ×4 (01:54→20:10)
[2021-04-17] MEDS: traMADol 50 MG TAB PO PRN (08:13)
[2021-04-17] MEDS: DOCUSATE 100 MG CAP PO SCH ×2 (08:13→20:09)
[2021-04-17] MEDS: SUCRALFATE 1 GM TAB PO SCH ×3 (08:13→16:58)
[2021-04-17] MEDS: APIXABAN 5 MG TAB PO SCH ×2 (08:14→20:09)
[2021-04-17] MEDS: PANTOPRAZOLE 40 MG TABLET PO SCH (08:14)
[2021-04-17] MEDS: SYMBICORT 80-4.5 MCG INHALER INHALATION SCH ×2 (08:52→20:00)
--- NOTE | 2021-04-17 09:11 | P.PN ---
Subjective Progress Note Date: 04/17/21 This patient is an 89-year-old male who is status-post operative fixation of right intertrochanteric hip fracture with short intramedullary hip screw on 04/15/21. Today's postoperative day #2. Patient is seen and examined bedside. Patient states his right hip and right shoulder a mildly painful today. X-rays of the right shoulder were obtained in the emergency department and revealed no fracture. A swallow study he has been ordered per internal medicine. Patient states he otherwise is doing well. He denies chest pain, shortness breath, nausea, vomiting, fevers, chills. There are no new complaints this morning. Vital signs stable. Objective - Vital Signs Vital signs: Vital Signs Temp 98.2 F 04/17/21 01:55 Pulse 78 04/17/21 01:55 Resp 20 04/17/21 01:55 BP 108/56 04/17/21 01:55 Pulse Ox 93 L 04/17/21 01:55 Intake & Output 04/16/21 04/17/21 04/17/21 18:59 06:59 18:59 Intake Total 650 Output Total 1759 475 Balance -1109 -475 Intake: Intake, IV Titration 50 Amount ceFAZolin 2 gm In Sodium 50 Chloride 0.9% 50 ml @ 100 mls/hr IVPB Q8HR [facility] Rx# :[id number] Oral 600 Output: Urine 1250 475 Uretheral ([place]) 550 Post Void Residual 509 Other: Voiding Method Indwelling Catheter Indwelling Catheter - Exam On examination, the patient is sitting up in bed in no apparent distress. He is alert and oriented 3. On inspection of the right hip, there are [address] in place. The proximal dressing is mildly saturated with serous drainage. The 2 distal dressings are clean, dry, intact with no drainage or bleeding. There is mild swelling of the thigh. The thigh soft and compressible. Patient has good strength [id number] of the right ankle. Motor and sensory function is intact of the right lower extremity. Right lower extremity is warm and well-perfused. Calves are soft and nontender to palpation bilaterally. Proximal surgical dressing was again changed bedside this morning.The surgical incision is healing well with no signs of infection. No surrounding erythema, warmth. Intact dana. No active bleeding or drainage of the incision. - Labs CBC & Chem 7: 04/16/21 07:01 04/16/21 07:01 Labs: Abnormal Lab Results - Last 24 Hours (Table) 04/16/21 04/16/21 Range/Units 07:01 07:01 RBC 2.70 L (4.30-5.90) m/uL Hgb 8.3 L D (13.0-17.5) gm/dL Hct 23.8 L (39.0-53.0) % Plt Count 79 L (150-450) k/uL Lymphocytes # 0.6 L (1.0-4.8) k/uL Sodium 134 L (137-145) mmol/L BUN 23 H (9-20) mg/dL Glucose 128 H (74-99) mg/dL Calcium 7.8 L (8.4-10.2) mg/dL Assessment and Plan Assessment: Status-post operative fixation of right intertrochanteric hip fracture with short intramedullary hip screw on 04/15/21. Postoperative day #2. Plan: - Patient may weight-bear as tolerated on the right lower extremity with a walker. Up with assistance. - Physical therapy for gait and balance training. - Resume Eliquis for DVT prophylaxis. - Pain management as needed. Limit use of opioids as tolerated. - Perioperative medical management per internal medicine and cardiology. Swallow study ordered per IM. - Social work consulted for discharge planning. Anticipate discharge to [facility] when cleared for medical standpoint.
[2021-04-17 09:13] LABS: Basophils # (A) 0.01 X 10*3/uL (0.00-0.10); Basophils % (A) 0.2 %; Eosinophils # (A) 0.18 X 10*3/uL (0.04-0.35); Eosinophils % (A) 4.4 %; HCT 20.4 % (39.6-50.0); HGB 7.1 g/dL (13.0-17.0); Lymphocytes # (A) 0.56 X 10*3/uL (0.90-5.00); Lymphocytes % (A) 13.6 %; MCH 30.5 pg (27.0-32.0); MCHC 34.8 g/dL (32.0-37.0); MCV 87.6 fL (80.0-97.0); Mean Platelet Volume 10.8 fL (9.5-12.2); Monocytes # (A) 0.64 X 10*3/uL (0.20-1.00); Monocytes % (A) 15.5 %; Neutrophils # (A) 2.72 X 10*3/uL (1.80-7.70); Neutrophils % (A) 65.8 %; Platelet Count 89 X 10*3/uL (140-440); RBC 2.33 X 10*6/uL (4.40-5.60); RDW 13.7 % (11.5-14.5); WBC 4.13 X 10*3/uL (4.50-10.00)
[2021-04-17] MEDS: ACETAMINOPHEN TAB 325 MG TAB PO PRN (12:22)
--- NOTE | 2021-04-17 12:36 | P.PN ---
Subjective Progress Note Date: 04/17/21 This is an 89-year-old male who was recently admitted with a fall and subsequent right hip fracture and underwent internal fixation of the right intertrochanteric hip fracture and short intramedullary hip screw and is being closely followed and monitored by orthopedics. Family at the bedside concerned with narcotic use and will limit use of current narcotics to strictly Ultram and Tylenol as needed. Patient was receiving IV Dilaudid and this will be discontinued. Speech therapy also consulted to reevaluate patient's swallow as the patient along with family member states he has been having difficulty with swallowing and choking on his meals. Recommend strict aspiration precautions and one-to-one supervision with meals and await speech therapy recommendations. Patient has been having multiple episodes of urinary retention requiring straight cath and will start Flomax and initiate indwelling [place] catheter. Patient will need outpatient follow-up with urology once more stable. PT/OT to e valuate for ECF placement. Patient's hemoglobin today is 8.3 status post 1 unit of PRBCs yesterday. 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 Patient hemoglobin today is 7.1 and platelets are 89 and will give 1 unit of PRBC and recommend outpatient follow-up with CBC labs in a few days to closely monitor the hemoglobin level. No active bleeding noted at this time. Patient is being transferred to [facility] for PT/OT therapy per orthopedic services. After patient receives unit of PRBC, patient is medically stable for discharge to ECF. Review of systems: Constitutional: no reports of fatigue, no reports of fever, or chills Cardiovascular: No reports of chest pain or palpitations Respiratory: No reports of shortness of breath or cough GI: No reports of nausea, vomiting, or diarrhea : No reports of dysuria, retaining urine Neurovascular: reports generalized weakness All medications have been reviewed Active Medications Acetaminophen (Acetaminophen Tab 325 Mg Tab) 650 mg PO Q6H PRN PRN Reason: Mild Pain Last Admin: 04/17/21 12:22 Dose: 650 mg Documented by: Acetic Acid/Hydrocortisone (Acetic Acid/Hydrocortisone 2-1% Drops 10 Ml Btl) 4 drops BOTH EARS Q6H [facility] Last Admin: 04/17/21 08:14 Dose: 4 drops Documented by: Al Hydroxide/Mg Hydroxide (Mag Hydrox/Al Hydrox/Simeth 30 Ml Cup) 30 ml PO DAILY PRN PRN Reason: GI Upset Last Admin: 04/15/21 14:08 Dose: 30 ml Documented by: Apixaban (Apixaban 5 Mg Tab) 5 mg PO BID [facility]; Protocol Last Admin: 04/17/21 08:14 Dose: 5 mg Documented by: Budesonide/Formoterol Fumarate (Symbicort 80-4.5 Mcg Inhaler) 2 puff INHALATION RT-BID [facility] Last Admin: 04/17/21 08:52 Dose: 2 puff Documented by: Docusate Sodium (Docusate 100 Mg Cap) 100 mg PO BID [facility] Last Admin: 04/17/21 08:13 Dose: 100 mg Documented by: Magnesium Hydroxide (Magnesium Hydroxide 2,400 Mg/10 Ml Cup) 2,400 mg PO DAILY PRN PRN Reason: Constipation Last Admin: 04/15/21 16:58 Dose: 2,400 mg Documented by: Metoprolol Succinate (Metoprolol Succinate (Er) 25 Mg Tab.Er.24h) 25 mg PO HS [facility] Last Admin: 04/16/21 21:59 Dose: 25 mg Documented by: Naloxone HCl (Naloxone 0.4 Mg/Ml 1 Ml Vial) 0.2 mg IV Q2M PRN PRN Reason: Opioid Reversal Ondansetron HCl (Ondansetron 4 Mg/2 Ml Vial) 4 mg IVP Q8HR PRN PRN Reason: Nausea And Vomiting Pantoprazole Sodium (Pantoprazole 40 Mg Tablet) 40 mg PO AC-BRKFST [facility] Last Admin: 04/17/21 08:14 Dose: 40 mg Documented by: Senna/Docusate Sodium (Sennosides-Docusate Sodium 1 Each Tab) 2 each PO HS [facility] Last Admin: 04/16/21 21:59 Dose: 2 each Documented by: Sucralfate (Sucralfate 1 Gm Tab) 1 gm PO AC-TID [facility] Last Admin: 04/17/21 12:22 Dose: 1 gm Documented by: Temazepam (Temazepam 15 Mg Cap) 15 mg PO HS PRN PRN Reason: Insomnia Tramadol HCl (Tramadol 50 Mg Tab) 50 mg PO Q6HR PRN PRN Reason: Pain Scale 1 to 5 Last Admin: 04/17/21 08:13 Dose: 50 mg Documented by: Physical exam: Gen: This is a 89-year-old male awake, alert and oriented 3, thin built. HEENT: Head is atraumatic, normocephalic. Pupils equal, round. Sclerae is anicteric. NECK: Supple. No JVD. No lymphadenopathy. No thyromegaly. LUNGS: Diminished breath sounds bilaterally with no wheezing or rhonchi noted. No intercostal retractions. HEART: S1, S2 are muffled ABDOMEN: Soft. Bowel sounds are present. No masses. No tenderness. EXTREMITIES: No pedal edema. No calf tenderness. Right lower extremity discomfort and surgical dressing is dry and intact recently replaced this morning NEUROLOGICAL: Patient is awake, alert and oriented x3. Diffusely weak. Assessment: Status post fall and right hip intertrochanteric fracture and short intramedullary hip screw Anemia, possibly acute blood loss anemia secondary to surgery Urinary retention possibly secondary to an unexpected outcome of surgery requiring indwelling [place] catheter Thrombocytopenia Hyponatremia Paroxysmal atrial fibrillation History of chronic obstructive pulmonary disease, not in acute exacerbation History of CVA, TIA GERD Hyperlipidemia History of dysphagia Full code Plan: Speech evaluated the patient recommending outpatient esophagram and continue with dysphasia level III chopped diet with thin liquids and maintain aspiration precautions with head of the bed elevated 30-45 and supervision with meals. Patient's hemoglobin was 7.1 and will give 1 unit of PRBC prior to discharge and provided prescription for outpatient follow-up of CBC in 1-2 days to monitor closely. Patient was also retaining urine and will start Flomax 0.4 mg daily and continue with indwelling [place] catheter and trial void recommended in the next couple days and if continuing to retain recommend outpatient follow-up with urology. This was discussed with family member at the bedside. Will continue to follow along with orthopedics during hospitalization. Recommend limiting the use of narcotics as patient becomes sedated and this was also stressed by the family member at the bedside to avoid narcotics if possible. Will continue T ylenol and Ultram as needed. Patient is medically stable for discharge to [facility] after receiving 1 unit of PRBC. Objective - Vital Signs Vital signs: Vital Signs Temp 98.2 F 04/17/21 01:55 Pulse 78 04/17/21 01:55 Resp 20 04/17/21 01:55 BP 108/56 04/17/21 01:55 Pulse Ox 93 L 04/17/21 01:55 Intake & Output 04/16/21 04/17/21 04/17/21 18:59 06:59 18:59 Intake Total 650 Output Total 1759 475 Balance -1109 -475 Intake: Intake, IV Titration 50 Amount ceFAZolin 2 gm In Sodium 50 Chloride 0.9% 50 ml @ 100 mls/hr IVPB Q8HR [facility] Rx# :[id number] Oral 600 Output: Urine 1250 475 Uretheral ([place]) 550 Post Void Residual 509 Other: Voiding Method Indwelling Catheter Indwelling Catheter - Labs CBC & Chem 7: 04/17/21 05:42 04/16/21 07:01 Labs: Abnormal Lab Results - Last 24 Hours (Table) 04/16/21 04/16/21 Range/Units 07:01 07:01 RBC 2.70 L (4.30-5.90) m/uL Hgb 8.3 L D (13.0-17.5) gm/dL Hct 23.8 L (39.0-53.0) % Plt Count 79 L (150-450) k/uL Lymphocytes # 0.6 L (1.0-4.8) k/uL Sodium 134 L (137-145) mmol/L BUN 23 H (9-20) mg/dL Glucose 128 H (74-99) mg/dL Calcium 7.8 L (8.4-10.2) mg/dL
--- NOTE | 2021-04-17 12:47 | FL ---
EXAMINATION TYPE: FL barium swallow w video DATE OF EXAM: 04/17/2021 CLINICAL HISTORY: 89-year-old male trouble swallowing, rule out aspiration, Dysphagia. TECHNIQUE: Deglutition study is performed utilizing thin liquid barium, honey and nectar thick liqui d barium, barium thick applesauce, and barium coated cracker. Total fluoroscopy time: 2 minutes 4 seconds. Total images: None. Real-time fluoroscopy support was provided to speech pathology. COMPARISON: None. FINDINGS: There is transient penetration with thin liquids. No other penetration or aspiration is seen. Incidentally, we note a prominent residual contrast throughout the thoracic esophagus and tertiary pe ristaltic waves. IMPRESSION: 1. Transient penetration with thin liquids. No other penetration or aspiration seen. 2. Possible esophageal dysmotility. Given persistent contrast within the thoracic esophagus, recommen d esophagram to exclude a distal stricture. 3. Please refer to speech therapist notes for further details if necessary.
[2021-04-17] MEDS: METOPROLOL SUCCINATE (ER) 25 MG TAB.ER.24H PO SCH (20:09)
[2021-04-17] MEDS: SENNOSIDES-DOCUSATE SODIUM 1 EACH TAB PO SCH (20:09)
[2021-04-18] MEDS: traMADol 50 MG TAB PO PRN ×2 (00:49→07:32)
[2021-04-18] MEDS: ACETIC ACID/HYDROCORTISONE 2-1% DROPS 10 ML BTL BOTH EARS SCH ×3 (01:58→14:01)
[2021-04-18] MEDS: ACETAMINOPHEN TAB 325 MG TAB PO PRN ×2 (01:58→12:03)
[2021-04-18 02:39] LABS: Basophils % (A) 0 %; Eosinophils # (A) 0.2 k/uL (0-0.7); Eosinophils % (A) 4 %; HCT 25.2 % (39.0-53.0); HGB 8.7 gm/dL (13.0-17.5); Lymphocytes # (A) 0.7 k/uL (1.0-4.8); Lymphocytes % (A) 14 %; MCH 30.9 pg (25.0-35.0); MCHC 34.4 g/dL (31.0-37.0); MCV 89.7 fL (80.0-100.0); Mean Platelet Volume 9.1; Monocytes # (A) 0.5 k/uL (0-1.0); Monocytes % (A) 10 %; Neutrophils # (A) 3.2 k/uL (1.3-7.7); Neutrophils % (A) 69 %; Platelet Count 108 k/uL (150-450); RBC 2.81 m/uL (4.30-5.90); RDW 13.9 % (11.5-15.5); WBC 4.7 k/uL (3.8-10.6)
[2021-04-18 02:50] LABS: ALT 19 U/L (4-49); AST 34 U/L (17-59); African American GFR (CKD) >90 (>60 ml/min/1.73 sqM); Albumin 2.2 g/dL (3.5-5.0); Alkaline Phosphatase 60 U/L (38-126); Anion Gap 3 mmol/L; Blood Urea Nitrogen 18 mg/dL (9-20); Calcium 7.9 mg/dL (8.4-10.2); Carbon Dioxide 26 mmol/L (22-30); Chloride 102 mmol/L (98-107); Globulin 2.3 g/dL; Glucose 109 mg/dL (74-99); Magnesium 2.1 mg/dL (1.6-2.3); Non-African American GFR(CKD) 84 (>60 ml/min/1.73 sqM); Sodium 131 mmol/L (137-145); Total Bilirubin 2.8 mg/dL (0.2-1.3); Total Protein 4.5 g/dL (6.3-8.2)
[2021-04-18] MEDS: SUCRALFATE 1 GM TAB PO SCH ×3 (07:31→16:52)
[2021-04-18] MEDS: DOCUSATE 100 MG CAP PO SCH (07:32)
[2021-04-18] MEDS: APIXABAN 5 MG TAB PO SCH (07:32)
[2021-04-18] MEDS: PANTOPRAZOLE 40 MG TABLET PO SCH (07:32)
[2021-04-18] MEDS: SYMBICORT 80-4.5 MCG INHALER INHALATION SCH (07:53)
[2021-04-18 08:05] VITALS: RESP 18
--- NOTE | 2021-04-18 09:13 | P.DS ---
Providers Date of admission: 04/13/21 23:49 Expected date of discharge: 04/18/21 Attending physician: Martin Banda Consults: 04/13/21 23:36 Consult Physician Stat Consulting Provider: Bebeto Stevens Consult Reason/Comments: right hip fracture Do you want consulting provider notified?: Yes 04/14/21 12:07 Consult Physician Routine Consulting Provider: Yasmeen Awan Consult Reason/Comments: surgical clearance Do you want consulting provider notified?: Yes 04/15/21 06:45 Consult Physician Urgent Consulting Provider: Yasmeen Awan Consult Reason/Comments: Cardiac event throughout night, medical wants another cardiac clearence Do you want consulting provider notified?: Yes Primary care physician: [facility] Course: This is an 89- hortencia old male who presented to [facility] ED on 04/13/21 after falling and sustaining injury to the right hip. On exam and x-ray in the emergency department she was found to have a right intertrochanteric hip fracture. The patient was admitted under the care of Dr. Banda for surgical intervention and care, with a consultation placed to internal medicine and cardiology for perioperative medical management. The patient is taken to surgery for operative fixation of right intertrochanteric hip fracture with a short intramedullary hip screw on 04/15/21. The procedure is performed without complication or sequelae. The patient is doing well postoperatively. Vital signs are stable on postop day #3. The patient is seen and examined bedside today. He states the pain in his right hip is well-controlled at this time. He states he is up walking to the bathroom yesterday. He tolerated his breakfast well. He denies chest pain, shortness breath, nausea, vomiting, fevers, chills. He is overall feeling well today. Patient was transfused an additional unit of PRBCs yesterday per internal medicine. He has been transfused a total of 2 units of PRBCs postoperatively. His hemoglobin is 8.7 this morning. He has no complaints or concerns. Vital signs stable. On examination, the patient is sitting up in bed in no apparent distress. He is alert and oriented 3. On inspection of his right hip, there are [address] with a small amount of serious drainage. The dressings are taken down and reveals 3 benign appearing surgical incisions with intact dana. There is no surrounding erythema, warmth. No fluctuance. No active drainage. No signs of infection. There is mild swelling of the thigh. The thigh soft and compressible. Motor and sensory function is intact of the right lower extremity. Patient has good strength and [id number] of the right ankle. Dorsalis pedis pulse +2, the right lower extremity is warm and well- perfused. Calves are soft and nontender to palpation bilaterally. No evidence of DVT. Dressings were changed bedside this morning with adaptic, 4x4s, and tegaderm. The patient is discharged to rehab today, pending medical clearance. Please refer to the [facility] rec for accurate list of medications Patient Condition at Discharge: Fair Plan - Discharge Summary Discharge Rx Participant: No New Discharge Prescriptions: New Tamsulosin [Flomax] 0.4 mg PO DAILY 30 Days #30 cap Magnesium Hydroxide [Milk of Magnesia Concentrate] 2,400 mg PO DAILY PRN ml PRN Reason: Constipation Sennosides-Docusate Sodium [Senokot-S] 2 each PO HS tab traMADol HCl [Ultram] 50 mg PO Q6HR PRN #9 tab PRN Reason: Pain Scale 1 To 5 Continue Fluticasone/Salmeterol [Advair 250-50 Diskus] 1 puff INHALATION RT-BID Apixaban [Eliquis] 5 mg PO BID Metoprolol Succinate [Toprol XL] 25 mg PO HS Omeprazole 20 mg PO DAILY Docusate [Colace] 100 mg PO BID PRN 3 Days #6 cap PRN Reason: Constipation Acetic Acid/Hydrocortisone [Vosol Hc Otic] 4 drops BOTH EARS TID Mag Hydrox/Aluminum Hyd/Simeth [Mylanta Maximum Strength Liq] 30 ml PO DAILY PRN PRN Reason: Gi Upset Acetaminophen Tab [Tylenol] 650 mg PO Q6H PRN PRN Reason: Pain Sucralfate [Carafate] 1 gm PO TID Discontinued Amoxicillin 500 mg PO TID Discharge Medication List Fluticasone/Salmeterol [Advair 250-50 Diskus] 1 puff INHALATION RT-BID 02/28/14 [History] Apixaban [Eliquis] 5 mg PO BID 05/20/17 [History] Metoprolol Succinate [Toprol XL] 25 mg PO HS 07/08/20 [History] Acetaminophen Tab [Tylenol] 650 mg PO Q6H PRN 03/04/21 [History] Mag Hydrox/Aluminum Hyd/Simeth [Mylanta Maximum Strength Liq] 30 ml PO DAILY PRN 03/04/21 [History] Omeprazole 20 mg PO DAILY 03/04/21 [History] Sucralfate [Carafate] 1 gm PO TID 03/04/21 [History] Docusate [Colace] 100 mg PO BID PRN 3 Days #6 cap 03/16/21 [Rx] Acetic Acid/Hydrocortisone [Vosol Hc Otic] 4 drops BOTH EARS TID 04/13/21 [History] Magnesium Hydroxide [Milk of Magnesia Concentrate] 2,400 mg PO DAILY PRN ml 04/17/21 [Rx] Sennosides-Docusate Sodium [Senokot-S] 2 each PO HS tab 04/17/21 [Rx] Tamsulosin [Flomax] 0.4 mg PO DAILY 30 Days #30 cap 04/17/21 [Rx] traMADol HCl [Ultram] 50 mg PO Q6HR PRN #9 tab 04/17/21 [Rx] Follow up Appointment(s)/Referral(s): Francie Quiñones DO [Primary Care Provider] - 1-2 days Juvencio Welch MD [STAFF PHYSICIAN] - 1 Week Martin Banda MD [Medical Doctor] - 2 Weeks Ambulatory/Diagnostic Orders: Complete Blood Count w/diff [LAB.AMB] Time Frame: 2 Days, Location: None Selected Activity/Diet/Wound Care/Special Instructions: Weight bear as tolerated on right lower extremity. Up with assistance and a walker. Resume Eliquis for DVT prophylaxis. Change surgical dressings daily and as needed, with adaptic, 4x4s, and tegaderm. Follow-up in the office in [address] Banda. Call the office with any questions or concerns, Patient is to follow-up with urology outpatient for urinary retention and will continue with indwelling [place] catheter Recommend to continue with dysphasia pre-chopped diet with thin liquids and aspiration precautions with head of the bed elevated 30-45 at all times and supervision with meals Follow-up outpatient ECF for esophagram reCommend repeat labs in 2-3 days to monitor hemoglobin Discharge Disposition: TRANSFER TO SNF/ECF
[2021-04-18] MEDS ORDERED: TAMSULOSIN 0.4 MG CAP.ER.24H PO SCH (09:45)
[2021-04-18 13:26] VITALS: BP 97/51; PULSE 88; TEMP 97.8
[2021-04-18 14:46] VITALS: BMI 20.9
--- NOTE | 2021-04-18 16:28 | P.PN ---
Subjective Progress Note Date: 04/18/21 This is an 89-year-old male who was recently admitted with a fall and subsequent right hip fracture and underwent internal fixation of the right intertrochanteric hip fracture and short intramedullary hip screw and is being closely followed and monitored by orthopedics. Family at the bedside concerned with narcotic use and will limit use of current narcotics to strictly Ultram and Tylenol as needed. Patient was receiving IV Dilaudid and this will be discontinued. Speech therapy also consulted to reevaluate patient's swallow as the patient along with family member states he has been having difficulty with swallowing and choking on his meals. Recommend strict aspiration precautions and one-to-one supervision with meals and await speech therapy recommendations. Patient has been having multiple episodes of urinary retention requiring straight cath and will start Flomax and initiate indwelling [place] catheter. Patient will need outpatient follow-up with urology once more stable. PT/OT to e valuate for ECF placement. Patient's hemoglobin today is 8.3 status post 1 unit of PRBCs yesterday. 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 Patient hemoglobin today is 7.1 and platelets are 89 and will give 1 unit of PRBC and recommend outpatient follow-up with CBC labs in a few days to closely monitor the hemoglobin level. No active bleeding noted at this time. Patient is being transferred to [facility] for PT/OT therapy per orthopedic services. After patient receives unit of PRBC, patient is medically stable for discharge to ECF. 04/18/2021 Patient was seen and evaluated this morning and persistent about removing indwelling [place] catheter prior to discharge to ECF and Washington was removed and patient was retaining with over 200 mL of urine and was unable to void. Discussed with the at length about continuing with indwelling [place] catheter upon discharge and recommending outpatient follow-up with urology in 1 week with attempts to trial removing and voiding on his own. Patient's urinalys is was negative and will continue on Flomax daily with recommendations of outpatient follow-up with Dr. Welch. Patient did receive a unit of PRBCs yesterday and hemoglobin is 8.7 this morning. Will continue to follow closely with orthopedics during hospitalization as patient will be going to [facility] today. Review of systems: Constitutional: no reports of fatigue, no reports of fever, or chills Cardiovascular: No reports of chest pain or palpitations Respiratory: No reports of shortness of breath or cough GI: No reports of nausea, vomiting, or diarrhea : No reports of dysuria, retaining urine Neurovascular: reports generalized weakness All medications have been reviewed Active Medications Acetaminophen (Acetaminophen Tab 325 Mg Tab) 650 mg PO Q6H PRN PRN Reason: Mild Pain Last Admin: 04/18/21 12:03 Dose: 650 mg Documented by: Acetic Acid/Hydrocortisone (Acetic Acid/Hydrocortisone 2-1% Drops 10 Ml Btl) 4 drops BOTH EARS Q6H [facility] Last Admin: 04/18/21 14:01 Dose: 4 drops Documented by: Al Hydroxide/Mg Hydroxide (Mag Hydrox/Al Hydrox/Simeth 30 Ml Cup) 30 ml PO DAILY PRN PRN Reason: GI Upset Last Admin: 04/15/21 14:08 Dose: 30 ml Documented by: Apixaban (Apixaban 5 Mg Tab) 5 mg PO BID [facility]; Protocol Last Admin: 04/18/21 07:32 Dose: 5 mg Documented by: Budesonide/Formoterol Fumarate (Symbicort 80-4.5 Mcg Inhaler) 2 puff INHALATION RT-BID [facility] Last Admin: 04/18/21 07:53 Dose: 2 puff Documented by: Docusate Sodium (Docusate 100 Mg Cap) 100 mg PO BID [facility] Last Admin: 04/18/21 07:32 Dose: 100 mg Documented by: Magnesium Hydroxide (Magnesium Hydroxide 2,400 Mg/10 Ml Cup) 2,400 mg PO DAILY PRN PRN Reason: Constipation Last Admin: 04/15/21 16:58 Dose: 2,400 mg Documented by: Metoprolol Succinate (Metoprolol Succinate (Er) 25 Mg Tab.Er.24h) 25 mg PO [facility] Last Admin: 04/17/21 20:09 Dose: 25 mg Documented by: Naloxone HCl (Naloxone 0.4 Mg/Ml 1 Ml Vial) 0.2 mg IV Q2M PRN PRN Reason: Opioid Reversal Ondansetron HCl (Ondansetron 4 Mg/2 Ml Vial) 4 mg IVP Q8HR PRN PRN Reason: Nausea And Vomiting Pantoprazole Sodium (Pantoprazole 40 Mg Tablet) 40 mg PO AC-KFST [facility] Last Admin: 04/18/21 07:32 Dose: 40 mg Documented by: Senna/Docusate Sodium (Sennosides-Docusate Sodium 1 Each Tab) 2 each PO HS [facility] Last Admin: 04/17/21 20:09 Dose: 2 each Documented by: Sucralfate (Sucralfate 1 Gm Tab) 1 gm PO AC-TID [facility] Last Admin: 04/18/21 12:03 Dose: 1 gm Documented by: Tamsulosin HCl (Tamsulosin 0.4 Mg Cap.Er.24h) 0.4 mg PO -[facility] Last Admin: 04/18/21 09:43 Dose: 0.4 mg Documented by: Temazepam (Temazepam 15 Mg Cap) 15 mg PO HS PRN PRN Reason: Insomnia Tramadol HCl (Tramadol 50 Mg Tab) 50 mg PO Q6HR PRN PRN Reason: Pain Scale 1 to 5 Last Admin: 04/18/21 07:32 Dose: 50 mg Documented by: Physical exam: Gen: This is a 89-year-old male awake, alert and oriented 3, thin built. HEENT: Head is atraumatic, normocephalic. Pupils equal, round. Sclerae is anicteric. NECK: Supple. No JVD. No lymphadenopathy. No thyromegaly. LUNGS: Diminished breath sounds bilaterally with no wheezing or rhonchi noted. No intercostal retractions. HEART: S1, S2 are muffled ABDOMEN: Soft. Bowel sounds are present. No masses. No tenderness. EXTREMITIES: No pedal edema. No calf tenderness. Right lower extremity discomfort and surgical dressing is dry and intact NEUROLOGICAL: Patient is awake, alert and oriented x3. Diffusely weak. Assessment: Status post fall and right hip intertrochanteric fracture and short intramedullary hip screw Anemia, possibly acute blood loss anemia secondary to surgery Urinary retention possibly secondary to an unexpected outcome of surgery requiring indwelling [place] catheter Thrombocytopenia Hyponatremia Paroxysmal atrial fibrillation History of chronic obstructive pulmonary disease, not in acute exacerbation History of CVA, TIA GERD Hyperlipidemia History of dysphagia Full code Plan: Recommend to continue with indwelling [place] catheter as an attempt to trial void was done today and patient continued to retain urine and discussed with the at length about continuing with the indwelling [place] catheter and close outpatient follow-up with urology in 1 week. Patient is scheduled to go to ECF today and is being arranged by orthopedic services as attending. Have a unit of PRBCs yesterday and hemoglobin today is 8.7. Patient remains afebrile and white blood count is 4.7. Urinalysis was negative. Recommend to continue current medications and will add Flomax. Recommend limiting the use of narcotics as patient becomes sedated and this was also stressed by the family member at the bedside to avoid narcotics if possible. Will continue Tylenol and Ultram as needed. Patient is medically stable for discharge to ECF. Objective - Vital Signs Vital signs: Vital Signs Temp 98.1 F 04/18/21 07:00 Pulse 75 04/18/21 07:00 Resp 18 04/18/21 07:00 BP 110/48 04/18/21 07:00 Pulse Ox 97 04/18/21 07:52 Intake & Output 04/17/21 04/18/21 04/18/21 18:59 06:59 18:59 Intake Total 0 310 Output Total 800 1000 Balance -800 -690 Intake: Blood Product 0 310 Rc As-1 Unit 0 310 [id number] Output: Urine 800 1000 Other: Voiding Method Indwelling Catheter Indwelling Catheter # Bowel Movements 1 - Labs CBC & Chem 7: 04/18/21 02:25 04/18/21 02:22 Labs: Abnormal Lab Results - Last 24 Hours (Table) 04/15/21 04/17/21 04/18/21 Range/Units 18:49 05:42 02:22 WBC 4.13 L (4.50-10.00) X 10*3/uL RBC 2.33 L (4.40-5.60) X 10*6/uL Hgb 7.1 L (13.0-17.0) g/dL Hct 20.4 L (39.6-50.0) % Plt Count 89 L (140-440) X 10*3/uL Lymphocytes # 0.56 L (0.90-5.00) X 10*3/uL Sodium 131 L (137-145) mmol/L Glucose 109 H (74-99) mg/dL Calcium 7.9 L (8.4-10.2) mg/dL Total Bilirubin 2.8 H (0.2-1.3) mg/dL Total Protein 4.5 L (6.3-8.2) g/dL Albumin 2.2 L (3.5-5.0) g/dL Crossmatch See Detail 04/18/21 Range/Units 02:25 WBC (4.50-10.00) X 10*3/uL RBC 2.81 L (4.40-5.60) X 10*6/uL Hgb 8.7 L (13.0-17.0) g/dL Hct 25.2 L (39.6-50.0) % Plt Count 108 L (140-440) X 10*3/uL Lymphocytes # 0.7 L (0.90-5.00) X 10*3/uL Sodium (137-145) mmol/L Glucose (74-99) mg/dL Calcium (8.4-10.2) mg/dL Total Bilirubin (0.2-1.3) mg/dL Total Protein (6.3-8.2) g/dL Albumin (3.5-5.0) g/dL Crossmatch
== END 2021-04-18 17:48 | DRG 481 ==
LOC: EC 19:14 → 4SSUR 23:49
PROVIDERS: ADMIT Orthopaedic Surgery; ATTEND Orthopaedic Surgery
PROC: 0QS636Z Reposition Right Upper Femur with Intramedullary Internal Fixation Device, Percutaneous Approach (ICD-10-PCS; principal; 2021-04-15 09:00)
DX: S72.141A Displaced intertrochanteric fracture of right femur, initial encounter for closed fracture (principal); E87.1 Hypo-osmolality and hyponatremia; W18.30XA Fall on same level, unspecified, initial encounter; D63.8 Anemia in other chronic diseases classified elsewhere; D69.6 Thrombocytopenia, unspecified; E78.5 Hyperlipidemia, unspecified; H91.90 Unspecified hearing loss, unspecified ear; I10 Essential (primary) hypertension; I25.10 Atherosclerotic heart disease of native coronary artery without angina pectoris; I25.2 Old myocardial infarction; I48.0 Paroxysmal atrial fibrillation; K21.9 Gastro-esophageal reflux disease without esophagitis; J44.9 Chronic obstructive pulmonary disease, unspecified; M81.0 Age-related osteoporosis without current pathological fracture; M25.511 Pain in right shoulder; Z20.822 Contact with and (suspected) exposure to COVID-19; Z86.73 Personal history of transient ischemic attack (TIA), and cerebral infarction without residual deficits; Z79.01 Long term (current) use of anticoagulants; Z83.3 Family history of diabetes mellitus; Z85.828 Personal history of other malignant neoplasm of skin; Z87.01 Personal history of pneumonia (recurrent); Z87.11 Personal history of peptic ulcer disease; Z87.440 Personal history of urinary (tract) infections; Z87.891 Personal history of nicotine dependence; Z90.3 Acquired absence of stomach [part of]; Z90.49 Acquired absence of other specified parts of digestive tract; Z95.0 Presence of cardiac pacemaker
CPT/HCPCS: 36415; 70450; 71045; 72125; 73501; 73502; 74230; 80048; 80053; 81001; 83735; 85025; 85610; 85730; 86850; 86900; 86901; 86920; 87635; 93005; 93306; 94640; 94760; 96374; 99285

== ENCOUNTER 2021-05-30 08:35 | Inpatient (IN) | payer MEDICARE ==
[2021-05-30] MEDS ORDERED: SODIUM CHLORIDE 0.9% 500 ML 500 ML IV STA (09:07)
--- NOTE | 2021-05-30 09:07 | ED ---
General Adult HPI - General Chief complaint: Altered Mental Status Stated complaint: altered mental status Time Seen by Provider: 05/30/21 08:41 Source: patient, EMS Mode of arrival: EMS Limitations: no limitations - History of Present Illness Initial comments: Dictation was produced using u[employer] dictation software. please excuse any grammatical, word or spelling errors. Chief Complaint: 89-year-old male presents emergency department for altered mental status. History of Present Illness: Patient is 89-year-old male who has past medical history of A. fib. Patient is brought in by EMS for altered mental status. EMS was allegedly called by patient's . Patient supposedly has a long history of UTIs with resultant encephalopathy. Patient is allegedly alert and oriented 3 out of 4. This morning was found to be alert and oriented 1 out of 4. His history of A. fib and takes Elizuis. The ROS documented in this emergency department record has been reviewed and confirmed by me. Those systems with pertinent positive or negative responses have been documented in the HPI. All other systems are other negative and/or noncontributory. PHYSICAL EXAM: General Impression: Alert and oriented x1/4, not in acute distress HEENT: Normocephalic atraumatic, extra-ocular movements intact, pupils equal and reactive to light bilaterally, mucous membranes moist. Cardiovascular: Heart regular rate and rhythm Chest: Able to complete full sentences, no retractions, no tachypnea Abdomen: abdomen soft, non-tender, non-distended, no organomegaly Musculoskeletal: Pulses present and equal in all extremities, no peripheral edema Motor: no focal deficits noted Neurological: CN II-XII grossly intact, no focal motor or sensory deficits noted Skin: Intact with no visualized rashes Psych: Normal affect and mood ED course: 89-year-old male presents emergency department for altered mental status. He allegedly has a history of UTIs causing encephalopathy. Supposedly his baseline alert and oriented 3 out of 4. Vital signs upon arrival shows heart rate of 122, rest of vital signs within acceptable limits. EKG shows A. fib with mild RVR with a rate of 120.Laboratory evaluation obtained. CBC unremarkable. Coag panel is negative. Metabolic panel is negative. Urinalysis shows 6 white blood cells. Computed tomography scan of the brain shows no acute processes. Patient is in mild A. fib RVR. She is given small doses of IV metoprolol for rate control. Son is at the bedside more history was obtained. Patient's allegedly pretty high functioning. No obvious reason for patient to be in A. fib RVR. He currently has a treated UTI. So has 6 white blood cells in his urine. Patient be admitted for encephalopathy. Case discussed with Emilie Ochoa who is willing to accept patients care on behalf of [facility] hospitalist group. EKG interpretation: Ventricular rate 122, A. fib with RVR, QRS 80, QTc 469. No [place] prolongation, no QTC prolongation, no ST or T-wave changes noted. Overall, this EKG is unremarkable - Related Data Home Medications Medication Instructions Recorded Confirmed Fluticasone/Salmeterol [Advair 1 puff INHALATION RT-BID 02/28/14 04/13/21 250-50 Diskus] Apixaban [Eliquis] 5 mg PO BID 05/20/17 04/13/21 Metoprolol Succinate [Toprol XL] 25 mg PO HS 07/08/20 04/13/21 Acetaminophen Tab [Tylenol] 650 mg PO Q6H PRN 03/04/21 04/13/21 Mag Hydrox/Aluminum Hyd/Simeth 30 ml PO DAILY PRN 03/04/21 04/13/21 [Mylanta Maximum Strength Liq] Omeprazole 20 mg PO DAILY 03/04/21 04/13/21 Sucralfate [Carafate] 1 gm PO TID 03/04/21 04/13/21 Acetic Acid/Hydrocortisone [Vosol 4 drops BOTH EARS TID 04/13/21 04/14/21 Hc Otic] Previous Rx's Medication Instructions Recorded Docusate [Colace] 100 mg PO BID PRN 3 Days #6 cap 03/16/21 Magnesium Hydroxide [Milk of 2,400 mg PO DAILY PRN ml 04/17/21 Magnesia Concentrate] Sennosides-Docusate Sodium 2 each PO HS tab 04/17/21 [Senokot-S] Tamsulosin [Flomax] 0.4 mg PO DAILY 30 Days #30 cap 04/17/21 traMADol HCl [Ultram] 50 mg PO Q6HR PRN #9 tab 04/17/21 traMADol HCL [Ultram] 50 mg PO Q6HR PRN 7 Days #28 tab 04/18/21 Allergies Allergy/AdvReac Type Severity Reaction Status Date / Time sulfamethoxazole Allergy Unknown Verified 05/30/21 10:49 [From Bactrim] temazepam [From Restoril] Allergy Unknown Verified 05/30/21 10:49 trimethoprim [From Bactrim] Allergy Unknown Verified 05/30/21 10:49 verapamil Allergy Unknown Verified 05/30/21 10:49 codeine AdvReac Intermediate Hallucinati Verified 05/30/21 10:49 ons atorvastatin [From Lipitor] AdvReac Nausea & Verified 05/30/21 10:49 Vomiting prednisone AdvReac agitated Verified 05/30/21 10:49 Review of Systems ROS Statement: Those systems with pertinent positive or pertinent negative responses have been documented in the HPI. ROS Other: All systems not noted in ROS Statement are negative. 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 History of Any Multi-Drug Resistant Organisms: None Reported Past Surgical History: Appendectomy, Cardiac Ablation, Cholecystectomy, Heart Catheterization, Pacemaker Additional Past Surgical History / Comment(s): 08/30/20 TURP, laparotomy for ulcer repair/partial gastrectomy, hemorrhoidectomy, colonoscopies, EGDs, bilateral cataract removals, skin cancer removed from face, occipital nerve injections. Past Anesthesia/Blood Transfusion Reactions: No Reported Reaction Type of Cardiac Device: Permanent Pacemaker Device Placement Date:: 2013 Past Psychological History: No Psychological Hx Reported Smoking Status: Former smoker Past Alcohol Use History: None Reported Past Drug Use History: None Reported - Past Family History Father Family Medical History: CVA/TIA Additional Family Medical History / Comment(s): Father had TIAs. He passed at the age of 82 yrs. Mother Family Medical History: Diabetes Mellitus Additional Family Medical History / Comment(s): AT AGE 76. General Exam Limitations: no limitations Course Vital Signs 05/30/21 05/30/21 05/30/21 08:41 09:06 10:00 Temperature 97.4 F L Pulse Rate 122 H 114 H 140 H Respiratory 15 14 Rate Blood Pressure 115/99 101/83 101/83 O2 Sat by Pulse 97 98 Oximetry Medical Decision Making - Lab Data Result diagrams: 05/30/21 09:03 05/30/21 09:03 Lab Results 05/30/21 05/30/21 05/30/21 Range/Units 09:03 09:03 09:03 WBC 5.2 (3.8-10.6) k/uL RBC 4.67 (4.30-5.90) m/uL Hgb 14.1 D (13.0-17.5) gm/dL Hct 43.6 (39.0-53.0) % MCV 93.4 (80.0-100.0) fL MCH 30.2 (25.0-35.0) pg MCHC 32.3 (31.0-37.0) g/dL RDW 14.4 (11.5-15.5) % Plt Count 151 (150-450) k/uL MPV 7.5 Neutrophils % 67 % Lymphocytes % 15 % Monocytes % 9 % Eosinophils % 5 % Basophils % 0 % Neutrophils # 3.5 (1.3-7.7) k/uL Lymphocytes # 0.8 L (1.0-4.8) k/uL Monocytes # 0.5 (0-1.0) k/uL Eosinophils # 0.3 (0-0.7) k/uL Basophils # 0.0 (0-0.2) k/uL PT (9.0-12.0) sec INR (<1.2) APTT (22.0-30.0) sec Sodium 138 (137-145) mmol/L Potassium 4.3 (3.5-5.1) mmol/L Chloride 106 (98-107) mmol/L Carbon Dioxide 26 (22-30) mmol/L Anion Gap 6 mmol/L BUN 15 (9-20) mg/dL Creatinine 0.83 (0.66-1.25) mg/dL Est GFR (CKD-EPI)AfAm >90 (>60 ml/min/1.73 sqM) Est GFR (CKD-EPI)NonAf 78 (>60 ml/min/1.73 sqM) Glucose 114 H (74-99) mg/dL Calcium 9.8 (8.4-10.2) mg/dL Magnesium 1.9 (1.6-2.3) mg/dL Total Bilirubin 1.3 (0.2-1.3) mg/dL AST 29 (17-59) U/L ALT 21 (4-49) U/L Alkaline Phosphatase 78 (38-126) U/L Ammonia 45 H (<30) umol/L Total Protein 6.5 (6.3-8.2) g/dL Albumin 3.6 (3.5-5.0) g/dL Urine Color Urine Appearance (Clear) Urine pH (5.0-8.0) Ur Specific [place] (1.001-1.035) Urine Protein (Negative) Urine Glucose (UA) (Negative) Urine Ketones (Negative) Urine Blood (Negative) Urine Nitrite (Negative) Urine Bilirubin (Negative) Urine Urobilinogen (<2.0) mg/dL Ur Leukocyte Esterase (Negative) Urine RBC (0-5) /hpf Urine WBC (0-5) /hpf Ur Squamous Epith Cells (0-4) /hpf Urine Mucus (None) /hpf 05/30/21 05/30/21 Range/Units 09:06 09:28 WBC (3.8-10.6) k/uL RBC (4.30-5.90) m/uL Hgb (13.0-17.5) gm/dL Hct (39.0-53.0) % MCV (80.0-100.0) fL MCH (25.0-35.0) pg MCHC (31.0-37.0) g/dL RDW (11.5-15.5) % Plt Count (150-450) k/uL MPV Neutrophils % % Lymphocytes % % Monocytes % % Eosinophils % % Basophils % % Neutrophils # (1.3-7.7) k/uL Lymphocytes # (1.0-4.8) k/uL Monocytes # (0-1.0) k/uL Eosinophils # (0-0.7) k/uL Basophils # (0-0.2) k/uL PT 12.1 H (9.0-12.0) sec INR 1.2 H (<1.2) APTT 26.8 (22.0-30.0) sec Sodium (137-145) mmol/L Potassium (3.5-5.1) mmol/L Chloride (98-107) mmol/L Carbon Dioxide (22-30) mmol/L Anion Gap mmol/L BUN (9-20) mg/dL Creatinine (0.66-1.25) mg/dL Est GFR (CKD-EPI)AfAm (>60 ml/min/1.73 sqM) Est GFR (CKD-EPI)NonAf (>60 ml/min/1.73 sqM) Glucose (74-99) mg/dL Calcium (8.4-10.2) mg/dL Magnesium (1.6-2.3) mg/dL Total Bilirubin (0.2-1.3) mg/dL AST (17-59) U/L ALT (4-49) U/L Alkaline Phosphatase (38-126) U/L Ammonia (<30) umol/L Total Protein (6.3-8.2) g/dL Albumin (3.5-5.0) g/dL Urine Color Yellow Urine Appearance Clear (Clear) Urine pH 6.5 (5.0-8.0) Ur Specific [place] 1.008 (1.001-1.035) Urine Protein Negative (Negative) Urine Glucose (UA) Negative (Negative) Urine Ketones Negative (Negative) Urine Blood Negative (Negative) Urine Nitrite Negative (Negative) Urine Bilirubin Negative (Negative) Urine Urobilinogen <2.0 (<2.0) mg/dL Ur Leukocyte Esterase Small H (Negative) Urine RBC 3 (0-5) /hpf Urine WBC 6 H (0-5) /hpf Ur Squamous Epith Cells <1 (0-4) /hpf Urine Mucus Rare H (None) /hpf Critical Care Time Critical Care Time: Yes (33) Disposition Clinical Impression: Altered mental status Disposition: ADMITTED IP TO THIS [facility] Condition: Fair Referrals: Nonstaff,Physician [REFERRING] - 1-2 days
[2021-05-30 09:43] LABS: Basophils % (A) 0 %; Eosinophils # (A) 0.3 k/uL (0-0.7); Eosinophils % (A) 5 %; HCT 43.6 % (39.0-53.0); Lymphocytes # (A) 0.8 k/uL (1.0-4.8); Lymphocytes % (A) 15 %; MCH 30.2 pg (25.0-35.0); MCHC 32.3 g/dL (31.0-37.0); MCV 93.4 fL (80.0-100.0); Mean Platelet Volume 7.5; Monocytes # (A) 0.5 k/uL (0-1.0); Monocytes % (A) 9 %; Neutrophils # (A) 3.5 k/uL (1.3-7.7); Neutrophils % (A) 67 %; Platelet Count 151 k/uL (150-450); RBC 4.67 m/uL (4.30-5.90); RDW 14.4 % (11.5-15.5); WBC 5.2 k/uL (3.8-10.6)
[2021-05-30 09:44] LABS: INR 1.2 (<1.2); Partial Thromboplastin Time 26.8 sec (22.0-30.0); Prothrombin Time 12.1 sec (9.0-12.0)
[2021-05-30 09:47] LABS: HGB 14.1 gm/dL (13.0-17.5)
--- NOTE | 2021-05-30 09:49 | CT ---
EXAMINATION TYPE: CT brain wo con DATE OF EXAM: 05/30/2021 COMPARISON: 04/13/2021 HISTORY: ams CT DLP: 1102.4 mGycm Automated exposure control for dose reduction was used. FINDINGS: Mild generalized degenerative change with low-attenuation white matter which is nonspecific. Findings most likely in the basis of remote white matter ischemia. No acute hemorrhage or mass effect. No midline shift. Calcification in the basal ganglia bilaterally. Minimal changes of sinusitis Orbits are symmetric calvarium intact. Craniocervical junction maintained. Sella turcica has a normal appearance. IMPRESSION: DEGENERATIVE AND NONSPECIFIC WHITE MATTER CHANGES MOST COMPATIBLE REMOTE ISCHEMIA WITH NO EVIDENCE FO R MASS EFFECT.
[2021-05-30 09:51] LABS: Appearance,Urine Clear (Clear); Bilirubin,Urine Negative (Negative); Blood,Urine Negative (Negative); Color,Urine Yellow; Glucose,Urine (UA) Negative (Negative); Ketones,Urine Negative (Negative); Leukocyte Esterase,Urine Small (Negative); Mucus,Urine Rare /hpf; Nitrite,Urine Negative (Negative); PH, Urine 6.5 (5.0-8.0); Protein,Urine Negative (Negative); RBC,Urine 3 /hpf (0-5); Specific Gravity,Urine 1.008 (1.001-1.035); Squamous Epithelial Cell,Urine <1 /hpf (0-4); Urobilinogen,Urine <2.0 mg/dL (<2.0); WBC,Urine 6 /hpf (0-5)
[2021-05-30 09:55] LABS: ALT 21 U/L (4-49); AST 29 U/L (17-59); African American GFR (CKD) >90 (>60 ml/min/1.73 sqM); Albumin 3.6 g/dL (3.5-5.0); Alkaline Phosphatase 78 U/L (38-126); Anion Gap 6 mmol/L; Blood Urea Nitrogen 15 mg/dL (9-20); Calcium 9.8 mg/dL (8.4-10.2); Carbon Dioxide 26 mmol/L (22-30); Chloride 106 mmol/L (98-107); Glucose 114 mg/dL (74-99); Magnesium 1.9 mg/dL (1.6-2.3); Non-African American GFR(CKD) 78 (>60 ml/min/1.73 sqM); Potassium 4.3 mmol/L (3.5-5.1); Sodium 138 mmol/L (137-145); Total Bilirubin 1.3 mg/dL (0.2-1.3); Total Protein 6.5 g/dL (6.3-8.2)
[2021-05-30] MEDS ORDERED: LACTULOSE 200 GM/300 ML (FROM 1/2 GAL JUG) RECTAL ONE (10:21)
[2021-05-30] MEDS ORDERED: NALOXONE 0.4 MG/ML 1 ML VIAL IV PRN (11:16)
[2021-05-30] MEDS ORDERED: AMPICILLIN-SULBACTAM 3 GM in SODIUM CHLORIDE 0.9% 100 ML IVPB STA (11:18)
[2021-05-30] MEDS: SODIUM CHLORIDE 0.9% 1,000 ML IV SCH (11:27)
[2021-05-30] MEDS: METOPROLOL TARTRATE 5 MG/5 ML VIAL IVP SCH ×3 (11:58→12:19)
[2021-05-30] MEDS ORDERED: METOPROLOL TARTRATE 5 MG/5 ML VIAL IVP STA (13:18)
[2021-05-30] MEDS ORDERED: METOPROLOL TARTRATE 50 MG TAB PO STA (13:20)
[2021-05-30] MEDS ORDERED: DOCUSATE 100 MG CAP PO PRN (15:08)
[2021-05-30] MEDS ORDERED: ONDANSETRON ODT 4 MG TAB PO PRN (15:08)
[2021-05-30] MEDS ORDERED: AMOXICILLIN 500 MG CAP PO SCH (15:15)
[2021-05-30] MEDS ORDERED: ACETIC ACID BOTH EARS SCH (16:00)
[2021-05-30] MEDS ORDERED: [UNRECOGNIZED DRUG - OTHER] BOTH EARS SCH (16:00)
[2021-05-30] MEDS ORDERED: HYDROCORTISONE BOTH EARS SCH (16:00)
[2021-05-30] MEDS ORDERED: SUCRALFATE 1 GM TAB PO SCH (17:30)
--- NOTE | 2021-05-30 17:46 | HP ---
HISTORY AND PHYSICAL CHIEF COMPLAINT: Change in mental status and weakness. HISTORY OF PRESENT ILLNESS: This 89-year-old gentleman with a past medical history of multiple medical problems being followed by Dr. Quiñones in the outpatient setting. The patient had history of atrial fibrillation, COPD, CVA, TIA, GERD, hypertension, hyperlipidemia. The patient was recently admitted with fall and as well as right hip fracture. The patient had surgery. The patient was sent to rehab. Apparently after 1 week the patient discharged from the rehab and the family noted that the patient has change in mental status. Patient is increasingly weak and diminished appetite and the son was called by the about these complaints and the patient also had significant history of recurrent UTIs and as well as encephalopathy also. The patient is admitted for further evaluation and treatment. At the time of admission, the white count is normal. INR is 1.2. UA shows some evidence of UTI and a CT scan of the brain which I reviewed personally, also showed significant findings of dementia with some periventricular ischemic changes also suspected at this time. There is no history of any fever, rigor or chills. The patient is unable to give a coherent history. Most of the history is taken from my discussion with the ER physician, discussion with the son at the bedside and as well as review of the chart and discussion with staff. PAST MEDICAL HISTORY: History of recent hip fracture and surgery, atrial fibrillation, COPD, CVA, TIA, GERD, hypertension, pneumonia. Recurrent UTI. MEDICATIONS: Home medications are: Zofran, Carafate, Amoxicillin, omeprazole, Toprol-XL, Advair, Colace, Eliquis, tylenol. Doses reviewed. ALLERGIES: BACTRIM, MEROPENEM, CODEINE AND LIPITOR, PREDNISONE. Family history, social history and review of systems could not be taken because of change in mental status. History of TIA in the chart and previous history of smoking also. PHYSICAL EXAMINATION: Patient is conscious, confused. Pulse is 106. Blood pressure is 116/91, respiration 18, temperature 98.8, pulse ox 94% on room air, pulse was 134 on admission. HEENT: Conjunctivae normal. Oral mucosa moist. NECK: No jugular venous distention. No carotid bruit. No lymph node enlargement. CARDIOVASCULAR: S1, S2 muffled. RESPIRATION: Breath sounds diminished in the bases. A few scattered rhonchi and crackles. ABDOMEN: Soft, nontender. No mass palpable. LEGS: No edema. No swelling. NERVOUS SYSTEM: Moves all 4 limbs. Mild diffuse weakness. LYMPHATICS: No lymph nodes palpable in the neck, axillae or groin. SKIN: No ulcer, no rashes and no bleeding. JOINTS: No active deforming arthropathy. LABS: CBC within normal limits and 0.8 and INR is 1.2. Glucose 114, and serum ammonia is 45, upper limit of normal is less than 30. ASSESSMENT: 1. Change in mental status, acute metabolic encephalopathy possibly secondary to sepsis. 2. Possible acute urinary tract infection with sepsis. 3. History of previous recurrent urinary tract infection and sepsis. 4. Elevated ammonia of undetermined significance. 5. Gait dysfunction. 6. History of recent fall and right hip intertrochanteric fracture with short intramedullary hip screw. 7. Paroxysmal atrial fibrillation. 8. Chronic obstructive pulmonary disease. 9. History of cerebrovascular accident, transient ischemic attack. 10.Gastroesophageal reflux disease. 11.Hyperlipidemia. 12.History of pneumonia. 13.History of benign prostatic hypertrophy. 14.History of recurrent urinary tract infection. 15.Occipital neuralgia. 16.History of dysphagia. 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 18.History of cholecystectomy. 19.History of pacemaker. 20.History of TURP. 21.History of laparotomy and ulcer repair and partial gastrectomy. 22.History of bilateral cataracts. 23.History of nicotine dependence. 24.Mild protein calorie malnutrition with body mass index of 20.1. 25.FULL CODE. RECOMMENDATIONS AND DISCUSSION: This 89-year-old gentleman who presented with multiple complex medical issues, we will monitor the patient closely, continue the current medications, management and symptomatic treatment. We will initiate broad-spectrum IV antibiotics. Obtain the cultures. Otherwise PT, OT evaluation. The patient has multiple complex medical issues, as listed above. Supplement vitamins. The prognosis guarded. Further recommendations to follow. I would also recommend PT/OT evaluation and possible evaluation for [facility]. A copy of this dictation forwarded to Dr. Quiñones who is the primary physician. See orders for details. I had a detailed discussion with the son at the bedside who understands and agrees. MMODL / IJN: [id number] / [facility]ALS[facility]y
[2021-05-30] MEDS ORDERED: METOPROLOL SUCCINATE (ER) 25 MG TAB.ER.24H PO SCH (21:00)
[2021-05-30] MEDS: SYMBICORT 80-4.5 MCG INHALER INHALATION SCH (21:08)
[2021-05-30] MEDS: APIXABAN 5 MG TAB PO SCH (21:10)
[2021-05-30] MEDS: ACETAMINOPHEN TAB 325 MG TAB PO PRN (21:12)
[2021-05-30] MEDS ORDERED: QUEtiapine 25 MG TAB PO ONE (23:45)
[2021-05-31] MEDS: SODIUM CHLORIDE 0.9% 1,000 ML IV SCH ×3 (00:34→20:24)
[2021-05-31] MEDS ORDERED: DILTIAZEM 125 MG in SODIUM CHLORIDE 0.9% 100 ML IV SCH (01:30)
[2021-05-31] MEDS: PANTOPRAZOLE 40 MG TABLET PO SCH (06:47)
[2021-05-31] MEDS: APIXABAN 5 MG TAB PO SCH ×2 (08:17→20:24)
[2021-05-31] MEDS: FOLIC ACID 1 MG TAB PO SCH (08:17)
[2021-05-31] MEDS: MULTIVITAMINS, THERA 1 EACH TAB PO SCH (08:17)
[2021-05-31] MEDS: THIAMINE 100 MG TAB PO SCH (08:17)
[2021-05-31] MEDS: SYMBICORT 80-4.5 MCG INHALER INHALATION SCH ×2 (08:59→19:33)
[2021-05-31 09:19] LABS: Basophils # (A) 0.03 X 10*3/uL (0.00-0.10); Basophils % (A) 0.7 %; Eosinophils # (A) 0.22 X 10*3/uL (0.04-0.35); HCT 39.4 % (39.6-50.0); HGB 12.7 g/dL (13.0-17.0); Lymphocytes # (A) 0.55 X 10*3/uL (0.90-5.00); Lymphocytes % (A) 12.5 %; MCH 29.7 pg (27.0-32.0); MCHC 32.2 g/dL (32.0-37.0); MCV 92.1 fL (80.0-97.0); Mean Platelet Volume 9.7 fL (9.5-12.2); Monocytes # (A) 0.52 X 10*3/uL (0.20-1.00); Monocytes % (A) 11.8 %; Neutrophils # (A) 3.07 X 10*3/uL (1.80-7.70); Neutrophils % (A) 69.5 %; Platelet Count 136 X 10*3/uL (140-440); RBC 4.28 X 10*6/uL (4.40-5.60); RDW 14.5 % (11.5-14.5); WBC 4.41 X 10*3/uL (4.50-10.00)
[2021-05-31] MEDS ORDERED: METOPROLOL TARTRATE 25 MG TAB PO STA (10:49)
--- NOTE | 2021-05-31 11:09 | P.CRDCN ---
History of Present Illness Consult date: 05/31/21 History of present illness: HISTORY OF PRESENT ILLNESS: This is a 89-year-old male with a past medical history significant for paroxysmal atrial fibrillation, CVA, and sick sinus syndrome with pacemaker implantation. Patient follows in the office with Dr. Matias. We have been asked to see the patient in consultation for afib with RVR. Patient examined at the bedside. Patient was brought into the hospital via EMS for altered mental status. The patient is currently confused and has a patient sitter at the bedside. He is unable to provide any history. There is no family present. EKG on admission revealed afib with RVR. Patient was started on a Cardizem drip which is currently infusing at 5 mg an hour. The patient remains in atrial fibril lation with a heart rate ranging between 8090. Brain CT completed revealing degenerative and nonspecific white matter changes most compatible remote ischemia with no evidence for mass effect. Laboratory data reveals WBC 4.41. Hemoglobin 12.7. Platelet count count 136. Sodium 138. Potassium 4.3. BUN 15. Creatinine 0.83. Magnesium 1.9. Ammonia 45. Echocardiogram completed in May 2021 revealed ejection fraction 65-70%. Trace mitral regurgitation. Mild tricuspid regurgitation REVIEW OF SYSTEMS: At the time of my exam: Unable to obtain thorough review of systems secondary to altered mental status PHYSICAL EXAM: VITAL SIGNS: Reviewed. GENERAL: Well-developed in no acute distress. HEENT: Head is normocephalic. Pupils are equal, round. Sclerae anicteric. Mucous membranes of the mouth are moist. Neck supple. No JVD or thyromegaly LUNGS: Respirations even and unlabored. Lungs essentially clear to auscultation bilaterally. HEART: Irregular rate and rhythm. S1 and S2 heard. Systolic murmur noted ABDOMEN: Soft. Nondistended. Nontender. EXTREMITIES: Normal range of motion. No clubbing or cyanosis. Peripheral pulses intact. No lower extremity edema NEUROLOGIC: Confused ASSESSMENT: Altered mental status, unclear etiology Paroxysmal atrial fibrillation with RVR, on anticoagulation with Eliquis History of CVA Sick sinus syndrome with previous pacemaker implantation Elevated ammonia level PLAN No need to repeat echo Continue Eliquis Increase Toprol to 50mg at night Give additional 25mg now Discontinue IV Cardizem Further recommendations pending patient course Nurse practitioner note has been reviewed by physician. Signing provider agrees with the documented findings, assessment, and plan of care. 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 History of Any Multi-Drug Resistant Organisms: None Reported Past Surgical History: Appendectomy, Cardiac Ablation, Cholecystectomy, Heart Catheterization, Orthopedic Surgery, Pacemaker Additional Past Surgical History / Comment(s): 08/30/20 TURP, laparotomy for ul cer repair/partial gastrectomy, hemorrhoidectomy, colonoscopies, EGDs, bilateral cataract removals, skin cancer removed from face, occipital nerve injections. Fall with R HIP Fx with Sx repair on 04/15/21 Past Anesthesia/Blood Transfusion Reactions: No Reported Reaction Type of Cardiac Device: Permanent Pacemaker Device Placement Date:: 2013 Past Psychological History: No Psychological Hx Reported Additional Psychological History / Comment(s): Pt resides with his spouse. He uses a cane and walker when out. He can drive, spouse does most of the driving. Spouse manages his medications. Smoking Status: Former smoker Past Alcohol Use History: None Reported Additional Past Alcohol Use History / Comment(s): STARTED SMOKING AT AGE 22, SMOKED 1 PPD. HAD QUIT ONCE FOR 1O YEARS THEN RESTARTED AFTER OF SON, QUIT IN 1999. Past Drug Use History: None Reported - Past Family History Father Family Medical History: CVA/TIA Additional Family Medical History / Comment(s): Father had TIAs. He passed at the age of 82 yrs. Mother Family Medical History: Diabetes Mellitus Additional Family Medical History / Comment(s): AT AGE 76. Medications and Allergies Home Medications Medication Instructions Recorded Confirmed Type Fluticasone/Salmeterol [Advair 1 puff INHALATION RT-BID 02/28/14 05/30/21 History 250-50 Diskus] Apixaban [Eliquis] 5 mg PO BID 05/20/17 05/30/21 History Metoprolol Succinate [Toprol XL] 25 mg PO HS 07/08/20 05/30/21 History Acetaminophen Tab [Tylenol] 650 mg PO Q6H PRN 03/04/21 05/30/21 History Docusate [Colace] 100 mg PO BID PRN 3 Days #6 cap 03/16/21 05/30/21 Rx Acetic Acid/Hydrocortisone [Vosol 4 drops BOTH EARS TID 04/13/21 05/30/21 History Hc Otic] Amoxicillin 500 mg PO Q8H 05/30/21 05/30/21 History Allergies Allergy/AdvReac Type Severity Reaction Status Date / Time sulfamethoxazole Allergy Unknown Verified 05/30/21 10:49 [From Bactrim] temazepam [From Restoril] Allergy Unknown Verified 05/30/21 10:49 trimethoprim [From Bactrim] Allergy Unknown Verified 05/30/21 10:49 verapamil Allergy Unknown Verified 05/30/21 10:49 codeine AdvReac Intermediate Hallucinati Verified 05/30/21 10:49 ons atorvastatin [From Lipitor] AdvReac Nausea & Verified 05/30/21 10:49 Vomiting prednisone AdvReac agitated Verified 05/30/21 10:49 Physical Exam Vitals: Vital Signs Temp Pulse Pulse Resp BP BP Pulse Ox 05/31/21 03:08 106 H 148/77 05/31/21 02:54 105 H 119/67 05/31/21 02:29 124 H 117/48 05/31/21 02:25 125 H 124/74 05/31/21 02:10 97.9 F 126 H 18 124/88 93 L 05/31/21 02:05 97.9 F 136 H 18 118/75 94 L 05/31/21 02:00 98.0 F 129 H 18 112/77 92 L 05/31/21 01:55 97.9 F 125 H 18 122/74 94 L 05/31/21 01:08 97.8 F 92 18 153/95 95 05/30/21 22:45 98.2 F 117 H 20 141/86 94 L 05/30/21 20:50 102 H 17 139/88 96 05/30/21 18:00 118 H 18 125/95 96 05/30/21 17:00 124 H 15 121/92 96 05/30/21 16:52 98.1 F 05/30/21 16:00 125 H 15 139/99 96 05/30/21 15:00 118 H 14 142/102 97 05/30/21 14:00 106 H 18 116/91 95 05/30/21 13:26 112 H 14 116/91 95 05/30/21 13:00 128 H 15 116/80 97 05/30/21 12:23 98.8 F 113 H 15 116/80 96 05/30/21 12:00 134 H 15 106/83 97 05/30/21 11:00 126 H 15 117/92 97 Intake and Output 05/30/21 05/31/21 05/31/21 22:59 06:59 14:59 Intake Total 123.5 Output Total 700 Balance -576.5 Intake: Intake, IV Titration 123.5 Amount Diltiazem 125 mg In 23.5 Sodium Chloride 0.9% 100 ml @ 10 MG/HR 10 mls/hr IV .[id number] [facility] Rx#: [id number] cefTRIAXone 1 gm In 100 Sodium Chloride 0.9% 50 ml @ 100 mls/hr IVPB Q24HR [facility] Rx#:[id number] Output: Urine 700 Other: Voiding Method External Catheter Weight 70 kg Results 05/31/21 05:48 05/30/21 09:03 CBC 05/31/21 Range/Units 05:48 WBC 4.41 L (4.50-10.00) X 10*3/uL RBC 4.28 L (4.40-5.60) X 10*6/uL Hgb 12.7 L (13.0-17.0) g/dL Hct 39.4 L (39.6-50.0) % Plt Count 136 L (140-440) X 10*3/uL Current Medications Generic Name Dose Route Start Last Admin Trade Name Freq PRN Reason Stop Dose Admin Acetaminophen 650 mg 05/30/21 11:16 05/30/21 21:12 Acetaminophen Tab 325 Mg Tab PO 650 mg Q6HR PRN Administration Mild Pain or Fever > 100.5 Apixaban 5 mg 05/30/21 21:00 05/31/21 08:17 Apixaban 5 Mg Tab PO 5 mg BID [facility] Administration Protocol Budesonide/Formoterol Fumarate 2 puff 05/30/21 20:00 05/31/21 08:59 Symbicort 80-4.5 Mcg Inhaler INHALATION 2 puff RT-BID RYAN Administration Docusate Sodium 100 mg 05/30/21 15:08 Docusate 100 Mg Cap PO BID PRN Constipation Folic Acid 1 mg 05/31/21 12:00 05/31/21 08:17 Folic Acid 1 Mg Tab PO 1 mg DAILY@1200 RYAN Administration Sodium Chloride 1,000 mls @ 100 mls/hr 05/30/21 11:30 05/31/21 00:34 Saline 0.9% IV 100 mls/hr .Q10H RYAN Administration Ceftriaxone Sodium 1 gm/ 50 mls @ 100 mls/hr 05/30/21 15:15 05/31/21 08:17 Sodium Chloride IVPB 100 mls/hr Q24HR RYAN Administration Metoprolol Succinate 50 mg 05/31/21 21:00 Metoprolol Succinate (Er) 50 Mg Tab.Er.24h PO [facility] Multivitamins 1 each 05/31/21 12:00 05/31/21 08:17 Multivitamins, Thera 1 Each Tab PO 1 each DAILY@1200 RYAN Administration Naloxone HCl 0.2 mg 05/30/21 11:16 Naloxone 0.4 Mg/Ml 1 Ml Vial IV Q2M PRN Opioid Reversal Pantoprazole Sodium 40 mg 05/31/21 07:30 05/31/21 06:47 Pantoprazole 40 Mg Tablet PO Not Given AC-BRKFST [facility] Thiamine HCl 100 mg 05/31/21 12:00 05/31/21 08:17 Thiamine 100 Mg Tab PO 100 mg DAILY@1200 RYAN Administration Intake and Output 05/30/21 05/31/21 05/31/21 22:59 06:59 14:59 Intake Total 123.5 Output Total 700 Balance -576.5 Intake: Intake, IV Titration 123.5 Amount Diltiazem 125 mg In 23.5 Sodium Chloride 0.9% 100 ml @ 10 MG/HR 10 mls/hr IV .[id number] [facility] Rx#: [id number] cefTRIAXone 1 gm In 100 Sodium Chloride 0.9% 50 ml @ 100 mls/hr IVPB Q24HR [facility] Rx#:[id number] Output: Urine 700 Other: Voiding Method External Catheter Weight 70 kg 05/31/21 05:48 05/30/21 09:03
[2021-05-31 11:17] LABS: African American GFR (CKD) 88.7 (60.0-200.0); Anion Gap 12.8 mmol/L (4.00-12.00); BUN/Creat Ratio 19.45 Ratio (12.00-20.00); Blood Urea Nitrogen 16.9 mg/dL (9.0-27.0); Calcium 9.4 mg/dL (8.7-10.3); Magnesium 1.8 mg/dL (1.5-2.4); Non-African American GFR(CKD) 76.6 (60.0-200.0); Potassium 4.1 mmol/L (3.5-5.5)
[2021-05-31] MEDS: ACETAMINOPHEN TAB 325 MG TAB PO PRN ×2 (12:06→20:24)
[2021-05-31] MEDS: METOPROLOL SUCCINATE (ER) 50 MG TAB.ER.24H PO SCH (20:24)
--- NOTE | 2021-05-31 20:46 | PN ---
PROGRESS NOTE DATE OF SERVICE: 05/31/2021 This 89-year-old gentleman with a past medical history of multiple medical problems was admitted with change in mental status and possible UTI was suspected. The patient was started on broad-spectrum IV antibiotics. Cultures are negative so far. The patient also had atrial fibrillation. Cardiology is following the patient closely. Past medical history reviewed. Review of systems could not be taken; the patient is confused. CURRENT MEDICATIONS: Reviewed. They include Tylenol, Eliquis, Symbicort, Rocephin, Colace, folic acid, Toprol. Other medications and doses are noted. PHYSICAL EXAMINATION: Patient is alert, oriented x2. Pulse is 92, blood pressure 123/76, respirations 16, temperature 97.6, pulse ox 96% on room air. HEENT: Conjunctivae normal. NECK: No jugular venous distention. CARDIOVASCULAR: S1, S2 muffled. RESPIRATION: Breath sounds diminished at the bases. A few scattered rhonchi. ABDOMEN: Soft, nontender. LEGS: No edema. No swelling. NERVOUS SYSTEM: Diffusely weak. LABS: WBC 4.1, hemoglobin 12.6, platelets are 136 and TSH is normal. UA noted. ASSESSMENT: 1. Change in mental status, acute metabolic encephalopathy, possibly secondary to sepsis. 2. Possible acute urinary tract infection with sepsis, present on admission. 3. History of previous recurrent urinary tract infections and sepsis. 4. Elevated ammonia of undetermined significance. 5. Gait dysfunction. 6. History of recent fall and right hip intertrochanteric fracture and short intramedullary hip screw placement. 7. Paroxysmal atrial fibrillation. 8. Chronic obstructive pulmonary disease. 9. History of cerebrovascular accident, transient ischemic attack. 10.Gastroesophageal reflux disease. 11.Hyperlipidemia. 12.History of pneumonia. 13.History of benign prostatic hypertrophy. 14.History of recurrent urinary tract infections. 15.Occipital neuralgia. 16.History of dysphagia. 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 18.History of cholecystectomy. 19.History of pacemaker. 20.History of TURP. 21.History of laparotomy and ulcer repair as well as partial gastrectomy. 22.History of bilateral cataracts. 23.History of nicotine dependence. 24.Mild protein-calorie malnutrition with body mass index of 20.1. 25.FULL CODE. RECOMMENDATIONS AND DISCUSSION: In this 89-year-old gentleman who presented with multiple complex medical issues, we will monitor the patient closely, continue the current medications, continue symptomatic treatment. Continue with the antibiotics. Cultures are negative so far. The patient does not have significant abnormal urine, probably because the patient was receiving outpatient p.o. antibiotics. Otherwise, we will continue the rest of medications. See orders for further details. Prognosis is extremely guarded because of multiple complex medical issues. I would also recommend PT/OT evaluation and social sciences research scientist consultation for possible ECF rehab because of the multiple complex medication issues and the readmission. Otherwise, the prognosis guarded. A copy of this dictation is being forwarded to Dr. Quiñones, who is the primary physician. MMODL / IJN: [id number] /
[2021-06-01] MEDS: SODIUM CHLORIDE 0.9% 1,000 ML IV SCH (06:16)
[2021-06-01] MEDS: PANTOPRAZOLE 40 MG TABLET PO SCH (06:16)
[2021-06-01] MEDS: APIXABAN 5 MG TAB PO SCH ×2 (08:12→20:15)
[2021-06-01] MEDS: SYMBICORT 80-4.5 MCG INHALER INHALATION SCH ×2 (09:09→20:07)
[2021-06-01] MEDS: FOLIC ACID 1 MG TAB PO SCH (12:33)
[2021-06-01] MEDS: MULTIVITAMINS, THERA 1 EACH TAB PO SCH (12:33)
[2021-06-01] MEDS: THIAMINE 100 MG TAB PO SCH (12:33)
--- NOTE | 2021-06-01 15:35 | PN ---
PROGRESS NOTE This is an 89-year-old gentleman with history of paroxysmal atrial fibrillation, previous CVA, permanent pacemaker implantation, admitted to the hospital with atrial fibrillation with RVR. Patient also has altered mental status. Patient was initiated on a Cardizem drip. Heart rate is in the 80s to 90s. Patient was also put on a higher dose of Toprol. He is on Eliquis. Cardizem was discontinued. He seems to be more alert today. Does not appear to be in acute distress. Blood pressure is 128/76, pulse is 82, respirations 17, saturation 93%. Physical examination reveals an elderly gentleman in no acute distress. Lungs appear to be clear. Heart is irregular. No significant edema. Currently on Eliquis 5 mg p.o. b.i.d. also on antibiotic along with metoprolol 50 mg at bedtime. Continue current management. PLAN: Continue current management. Will follow as needed. MMZACH / DEEJAYN: [id number] / MTDD
[2021-06-01] MEDS: METOPROLOL SUCCINATE (ER) 50 MG TAB.ER.24H PO SCH (20:15)
[2021-06-02] MEDS: PANTOPRAZOLE 40 MG TABLET PO SCH (06:34)
[2021-06-02] MEDS: SYMBICORT 80-4.5 MCG INHALER INHALATION SCH ×2 (07:10→19:12)
[2021-06-02] MEDS: APIXABAN 5 MG TAB PO SCH ×2 (08:27→21:51)
--- NOTE | 2021-06-02 10:51 | P.PN ---
Subjective Progress Note Date: 06/01/21 Principal diagnosis: UTI/sepsis Metabolic encephalopathy possibly related to sepsis Atrial fibrillation with RVR Gait disturbance/debility 89-year-old male patient with history of hypertension, hyperlipidemia, atrial fibrillation, brought to ED via EMS for concern about altered mental status; according to patient's he is alert and oriented 3 and usually has episodes of confusion with UTI Objective - Vital Signs Vital signs: Vital Signs Temp 97.9 F 06/01/21 00:29 Pulse 82 06/01/21 00:29 Resp 17 06/01/21 00:29 BP 128/76 06/01/21 00:29 Pulse Ox 93 L 06/01/21 00:29 Intake & Output 05/31/21 06/01/21 06/01/21 18:59 06:59 18:59 Intake Total 930 100 118 Output Total 400 200 Balance 530 -100 118 Intake: Intake, IV Titration 290 100 Amount Sodium Chloride 0.9% 1, 240 000 ml @ 100 mls/hr IV . Q10H RYAN Rx#:[id number] cefTRIAXone 1 gm In 50 100 Sodium Chloride 0.9% 50 ml @ 100 mls/hr IVPB Q24HR RYAN Rx#:[id number] Oral 640 118 Output: Urine 400 200 Other: Voiding Method External Catheter # Voids 1 # Bowel Movements 3 1 - Exam PHYSICAL EXAMINATION: GENERAL: The patient is alert and oriented x3, not in any acute distress. Well developed, well nourished. HEENT: Pupils are round and equally reacting to light. EOMI. No scleral icterus. No conjunctival pallor. Normocephalic, atraumatic. No pharyngeal erythema. No thyromegaly. CARDIOVASCULAR: S1 and S2 present. No murmurs, rubs, or gallops. PULMONARY: Chest is clear to auscultation, no wheezing or crackles. ABDOMEN: Soft, nontender, nondistended, normoactive bowel sounds. No palpable organomegaly. MUSCULOSKELETAL: No joint swelling or deformity. EXTREMITIES: No cyanosis, clubbing, or pedal edema. NEUROLOGICAL: Gross neurological examination did not reveal any focal deficits. SKIN: No rashes. - Labs CBC & Chem 7: 05/31/21 05:48 05/31/21 05:51 Labs: Abnormal Lab Results - Last 24 Hours (Table) 05/31/21 Range/Units 05:51 Anion Gap 12.80 H (4.00-12.00) mmol/L Microbiology - Last 24 Hours (Table) 05/30/21 16:18 Blood Culture - Preliminary Blood No Growth after 24 hours 05/31/21 06:21 Urine Culture - Preliminary Urine,Catheterized Assessment and Plan Assessment: 1. UTI/sepsis - Patient is currently on IV Rocephin; urine culture reveals Dory albicans; we will start patient on Diflucan 100 mg daily 2. Altered mental status/metabolic encephalopathy; possibly related to UTI; improving 3. Atrial fibrillation with RVR - IV Cardizem infusion has been discontinued; patient has been placed on metoprolol 50 mg daily; anticoagulation therapy in form of Eliquis 5 mg by mouth twice a day 4. Hypertension; metoprolol 50 mg daily 5. Hyperlipidemia; currently not on antihypertensive therapy 6. COPD; not in exacerbation; Symbicort 804 0.52 puffs twice a day 7. BPH; Flomax 0.4 mg daily DVT prophylaxis; SCDs/Eliquis CODE STATUS; full code
[2021-06-02] MEDS: MULTIVITAMINS, THERA 1 EACH TAB PO SCH (11:34)
[2021-06-02] MEDS: FOLIC ACID 1 MG TAB PO SCH (11:34)
[2021-06-02] MEDS: THIAMINE 100 MG TAB PO SCH (11:34)
[2021-06-02] MEDS: SODIUM CHLORIDE 0.9% 1,000 ML IV SCH ×4 (11:34→21:52)
[2021-06-02] MEDS: FLUCONAZOLE IN NACL,ISO-OSM 200 MG in SALINE 1 100ML.BAG IVPB SCH (11:34)
--- NOTE | 2021-06-02 12:20 | P.PN ---
Subjective Progress Note Date: 06/02/21 HISTORY OF PRESENT ILLNESS: This is a 89-year-old male with a past medical history significant for paroxysmal atrial fibrillation, CVA, and sick sinus syndrome with pacemaker implantation. Patient follows in the office with Dr. Matias. We have been asked to see the patient in consultation for afib with RVR. Patient examined at the bedside. Patient was brought into the hospital via EMS for altered mental status. The patient is currently confused and has a patient sitter at the bedside. He is unable to provide any history. There is no family present. EKG on admission revealed afib with RVR. Patient was started on a Cardizem drip which is currently infusing at 5 mg an hour. The patient remains in atrial fibrillation with a heart rate ranging between 8090. Brain CT completed revealing degenerative and nonspecific white matter changes most compatible remote ischemia with no evidence for mass effect. Laboratory data reveals WBC 4.41. Hemoglobin 12.7. Platelet count count 136. Sodium 138. Potassium 4.3. BUN 15. Creatinine 0.83. Magnesium 1.9. Ammonia 45. Echocardiogram completed in May 2021 revealed ejection fraction 65-70%. Trace mitral regurgitation. Mild tricuspid regurgitation 06/02: Patient's mental status is at baseline, alert and oriented to person and place. Permanent pacemaker has been interrogated and reviewed. awake overnight monitor is atrial fibrillation with controlled rate. Blood pressure 112/68, pulse ox 96% on room air. PHYSICAL EXAM: VITAL SIGNS: Reviewed. GENERAL: Well-developed in no acute distress. HEENT: Head is normocephalic. Pupils are equal, round. Sclerae anicteric. Mucous membranes of the mouth are moist. Neck supple. No JVD or thyromegaly LUNGS: Respirations even and unlabored. Lungs essentially clear to auscultation bilaterally. HEART: Irregular rate and rhythm. S1 and S2 heard. Systolic murmur noted ABDOMEN: Soft. Nondistended. Nontender. EXTREMITIES: Normal range of motion. No clubbing or cyanosis. Peripheral pulses intact. No lower extremity edema NEUROLOGIC: Alert and oriented to person and place ASSESSMENT: Altered mental status, unclear etiology, improving Paroxysmal atrial fibrillation with RVR, on anticoagulation with Eliquis History of CVA Sick sinus syndrome with previous pacemaker implantation Elevated ammonia level PLAN Status post pacemaker interrogation Continue Eliquis and Toprol 50mg at night Patient is cleared for discharge from cardiology Follow-up with Dr. Matias in one to 2 weeks Nurse practitioner note has been reviewed by physician. Signing provider agrees with the documented findings, assessment, and plan of care. Objective - Vital Signs Vital signs: Vital Signs Temp 97.9 F 06/02/21 08:24 Pulse 113 H 06/02/21 08:24 Resp 16 06/02/21 08:24 BP 108/57 06/02/21 08:24 Pulse Ox 95 06/02/21 08:24 Intake & Output 06/01/21 06/02/21 06/02/21 18:59 06:59 18:59 Intake Total 168 Output Total 550 1000 Balance -382 -1000 Intake: Oral 168 Output: Urine 550 1000 - Labs CBC & Chem 7: 05/31/21 05:48 05/31/21 05:51 Labs: Microbiology - Last 24 Hours (Table) 05/31/21 06:21 Urine Culture - Final Urine,Catheterized Dory albicans 05/30/21 16:18 Blood Culture - Preliminary Blood No Growth after 48 hours
[2021-06-02] MEDS: METOPROLOL SUCCINATE (ER) 50 MG TAB.ER.24H PO SCH (21:51)
[2021-06-03 05:16] LABS: Glucose,Whole Blood 95 mg/dL (75-99)
[2021-06-03] MEDS: SODIUM CHLORIDE 0.9% 1,000 ML IV SCH ×2 (06:24→13:11)
[2021-06-03] MEDS: PANTOPRAZOLE 40 MG TABLET PO SCH (06:33)
[2021-06-03] MEDS: SYMBICORT 80-4.5 MCG INHALER INHALATION SCH ×2 (08:03→20:32)
[2021-06-03 08:51] LABS: Glucose,Whole Blood 124 mg/dL (75-99)
[2021-06-03] MEDS: FLUCONAZOLE IN NACL,ISO-OSM 200 MG in SALINE 1 100ML.BAG IVPB SCH (10:15)
[2021-06-03] MEDS: APIXABAN 5 MG TAB PO SCH ×2 (10:17→20:38)
[2021-06-03] MEDS: THIAMINE 100 MG TAB PO SCH (10:17)
[2021-06-03] MEDS: FOLIC ACID 1 MG TAB PO SCH (10:18)
[2021-06-03] MEDS: MULTIVITAMINS, THERA 1 EACH TAB PO SCH (10:18)
--- NOTE | 2021-06-03 11:15 | XR ---
EXAMINATION TYPE: XR chest 1V portable DATE OF EXAM: 06/03/2021 COMPARISON: 04/15/2021 INDICATION: Cough and congestion TECHNIQUE: Single frontal view of the chest is obtained. FINDINGS: The heart size is normal. The pulmonary vasculature is somewhat prominent. Pacemaker overlies left chest.. No suspicious focal consolidations or peripheral infiltrates are evident. IMPRESSION: 1. Slight prominence of pulmonary vasculature markings. No suspicious infiltrates are evident. Consid er volume overload. Follow up exams can be performed as clinically indicated.
[2021-06-03 11:17] LABS: Glucose,Whole Blood 88 mg/dL (75-99)
--- NOTE | 2021-06-03 11:44 | CT ---
EXAMINATION TYPE: CT brain wo con for TPA DATE OF EXAM: 06/03/2021 COMPARISON: 05/30/2021 INDICATION: AMS DLP: 1094.8 mGycm, Automated exposure control for dose reduction was used. CONTRAST: None CT of the brain is performed utilizing 3 mm thick sections through the posterior fossa and 3 mm thick sections through the remaining calvarium. Study is performed within 24 hours of arrival to the hosp ital. No abnormal hyperdensity is present to suggest an acute intracranial hemorrhage. No mass lesion is evident. No acute infarcts are evident. Periventricular white matter hypodensity is present. This is patchy to confluent may be related to chronic white matter ischemic type changes. Findings appear stable from the comparison study. If closer evaluation would be of benefit, MRI could be performed. Note is made of some physiologic basal ganglion calcification present bilaterally. Ventricles and sulci are appropriate for the patient age. Some minimal fluid is within the sphenoid sinus. Mastoid air cells remaining paranasal sinuses appear clear. IMPRESSIONS: 1. Chronic appearing stable periventricular white matter ischemic type changes. Some age-related at rophy is present. Findings are stable from 05/30/2021. 2. Some minimal acute sphenoid sinus disease may be present.
[2021-06-03] MEDS ORDERED: ASPIRIN 300 MG SUPP RECTAL STA (12:06)
--- NOTE | 2021-06-03 12:06 | CT ---
EXAMINATION TYPE: CODE STROKE: CTA head neck DATE OF EXAM: 06/03/2021 HISTORY: AMS COMPARISON: CT brain same date CT DLP: 363.2 mGycm. Automated Exposure Control for Dose Reduction was Utilized. TECHNIQUE: CTA scan of the neck is performed with IV Contrast, patient injected with 65 mL of Isovue 370, axial images are obtained, coronal and sagittal reformatted images are reviewed. Three-D recons tructed images are created on an independent workstation and reviewed. Source images are reviewed. FINDINGS: Carotid/Vascular Structures: There is a three-vessel arch. The vertebral arteries are codominant. Co mmon carotid arteries bifurcate normally into internal and external carotid vessels. There is some at heromatous plaquing without stenosis at the carotid bifurcations. Internal carotid arteries and verte bral arteries are patent to the skull base. Cervical of [place]: Vertebral basilar system appears normal. Posterior cerebral vasculature is unrema rkable. Internal carotid arteries bifurcate normally into A1 and M1 segments. A2 segments are normal. The anterior communicating artery is patent. Left Posterior communicating artery is patent. Right po sterior communicating artery is absent. Middle cerebral artery branches appear normal. Other: Lung apices appear clear. Prevertebral space is normal. IMPRESSION: 1. No flow-limiting stenosis bilateral carotid bifurcations. 2. Normal [place] of [place] NASCET criteria was used in interpretation of this exam?
[2021-06-03] MEDS ORDERED: SODIUM CHLORIDE 0.9% 500 ML 500 ML IV ONE (12:07)
--- NOTE | 2021-06-03 12:27 | P.PN ---
Subjective Progress Note Date: 06/03/21 HISTORY OF PRESENT ILLNESS: This is a 89-year-old male with a past medical history significant for paroxysmal atrial fibrillation, CVA, and sick sinus syndrome with pacemaker implantation. Patient follows in the office with Dr. Matias. We have been asked to see the patient in consultation for afib with RVR. Patient examined at the bedside. Patient was brought into the hospital via EMS for altered mental status. The patient is currently confused and has a patient sitter at the bedside. He is unable to provide any history. There is no family present. EKG on admission revealed afib with RVR. Patient was started on a Cardizem drip which is currently infusing at 5 mg an hour. The patient remains in atrial fibrillation with a heart rate ranging between 8090. Brain CT completed revealing degenerative and nonspecific white matter changes most compatible remote ischemia with no evidence for mass effect. Laboratory data reveals WBC 4.41. Hemoglobin 12.7. Platelet count count 136. Sodium 138. Potassium 4.3. BUN 15. Creatinine 0.83. Magnesium 1.9. Ammonia 45. Echocardiogram completed in May 2021 revealed ejection fraction 65-70%. Trace mitral regurgitation. Mild tricuspid regurgitation 06/02: Patient's mental status is at baseline, alert and oriented to person and place. Permanent pacemaker has been interrogated and reviewed. 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 Blood pressure 112/68, pulse ox 96% on room air. 06/03: Patient is found to be more confused today and not able to follow commands and code stroke has been called. Patient is noted to have more coughing and chest x-ray has been ordered. 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 PHYSICAL EXAM: VITAL SIGNS: Blood pressure 136/76, heart rate 100, pulse ox 96% on room air, afebrile. GENERAL: Well-developed in no acute distress. HEENT: Head is normocephalic. Pupils are equal, round. Sclerae anicteric. Mucous membranes of the mouth are moist. Neck supple. No JVD or thyromegaly LUNGS: Respirations even and unlabored. Lungs essentially clear to auscultation bilaterally. HEART: Irregular rate and rhythm. S1 and S2 heard. Systolic murmur noted ABDOMEN: Soft. Nondistended. Nontender. EXTREMITIES: Normal range of motion. No clubbing or cyanosis. Peripheral pulses intact. No lower extremity edema NEUROLOGIC: Alert and oriented to person and place ASSESSMENT: Altered mental status, unclear etiology Paroxysmal atrial fibrillation with RVR, on anticoagulation with Eliquis History of CVA Sick sinus syndrome with previous pacemaker implantation Elevated ammonia level PLAN Status post pacemaker interrogation Continue Eliquis and Toprol 50mg at night Follow-up with Dr. Matias in one to 2 weeks Nurse practitioner note has been reviewed by physician. Signing provider agrees with the documented findings, assessment, and plan of care. Objective - Vital Signs Vital signs: Vital Signs Temp 98.1 F 06/03/21 08:00 Pulse 100 06/03/21 08:00 Resp 17 06/03/21 08:00 BP 136/76 06/03/21 08:00 Pulse Ox 96 06/03/21 08:00 Intake & Output 06/02/21 06/03/21 06/03/21 18:59 06:59 18:59 Intake Total 100 120 Output Total 1200 1120 Balance -1100 -1120 120 Intake: Intake, IV Titration 100 Amount Fluconazole in NaCl,Iso- 100 Osm 200 mg In Saline 1 100ml.bag @ 100 mls/hr IVPB DAILY [facility] Rx#: [id number] Oral 120 Output: Urine 1200 1120 Other: Voiding Method Urinal Urinal Diaper Diaper # Voids 3 1 # Bowel Movements 2 - Labs CBC & Chem 7: 05/31/21 05:48 05/31/21 05:51 Labs: Abnormal Lab Results - Last 24 Hours (Table) 06/03/21 Range/Units 08:49 POC Glucose (mg/dL) 124 H (75-99) mg/dL Microbiology - Last 24 Hours (Table) 05/30/21 16:18 Blood Culture - Preliminary Blood No Growth after 72 hours 05/31/21 06:21 Urine Culture - Final Urine,Catheterized Dory albicans
[2021-06-03 12:51] LABS: Basophils % (A) 0 %; Eosinophils # (A) 0.3 k/uL (0-0.7); Eosinophils % (A) 6 %; HCT 39.8 % (39.0-53.0); Lymphocytes # (A) 0.9 k/uL (1.0-4.8); Lymphocytes % (A) 18 %; MCH 30.1 pg (25.0-35.0); MCHC 32.6 g/dL (31.0-37.0); MCV 92.4 fL (80.0-100.0); Mean Platelet Volume 8.3; Monocytes # (A) 0.5 k/uL (0-1.0); Monocytes % (A) 10 %; Neutrophils # (A) 3.2 k/uL (1.3-7.7); Neutrophils % (A) 62 %; Platelet Count 103 k/uL (150-450); RBC 4.31 m/uL (4.30-5.90); RDW 14.7 % (11.5-15.5); WBC 5.1 k/uL (3.8-10.6)
[2021-06-03 12:58] LABS: INR 1.4 (<1.2); Partial Thromboplastin Time 28.4 sec (22.0-30.0); Prothrombin Time 13.9 sec (9.0-12.0)
[2021-06-03 13:13] LABS: ALT 15 U/L (4-49); AST 22 U/L (17-59); African American GFR (CKD) >90 (>60 ml/min/1.73 sqM); Albumin 2.8 g/dL (3.5-5.0); Alkaline Phosphatase 63 U/L (38-126); Anion Gap 4 mmol/L; Blood Urea Nitrogen 15 mg/dL (9-20); Carbon Dioxide 26 mmol/L (22-30); Chloride 107 mmol/L (98-107); Glucose 100 mg/dL (74-99); Non-African American GFR(CKD) 78 (>60 ml/min/1.73 sqM); Potassium 3.9 mmol/L (3.5-5.1); Sodium 137 mmol/L (137-145); Total Bilirubin 1.2 mg/dL (0.2-1.3); Total Protein 5.5 g/dL (6.3-8.2)
--- NOTE | 2021-06-03 16:11 | P.EN ---
I responded to a rapid response called by nursing staff regarding patient worsening mentation. Upon arrival to the room, patient was obtunded and barely responsive to sternal rub. Nursing staff informed me that his ammonia level done earlier was 200. Ammonia level on presentation was 34. Patient is not known to have any underlying liver disease. His at bedside is not aware of any underlying liver disease. Apparently a code stroke was called earlier on patient with imaging was unremarkable. Patient remained confused. Patient was evaluated by me at bedside. He does have a gag reflex and is able to protect his airway. I recommend to start patient on rectal lactulose every 2 hours for 3 doses and every 4 hours thereafter. Repeat ammonia level in 6 hours. Continue supportive care otherwise. I had a prolonged discussion with the patient's at bedside regarding goals of care and CODE STATUS. She informed me that she would like the patient to be full code.
[2021-06-03] MEDS: LACTULOSE 200 GM/300 ML (FROM 1/2 GAL JUG) RECTAL SCH ×3 (16:34→21:34)
--- NOTE | 2021-06-03 19:49 | P.PN ---
Subjective Progress Note Date: 06/02/21 Principal diagnosis: UTI/sepsis Metabolic encephalopathy possibly related to sepsis Atrial fibrillation with RVR Gait disturbance/debility 89-year-old male patient with history of hypertension, hyperlipidemia, atrial fibrillation, brought to ED via EMS for concern about altered mental status; according to patient's he is alert and oriented 3 and usually has episodes of confusion with UTI 06/02/2021 Patient is seen and evaluated with at bedside; reports patient's mental status is at baseline; patient has been able to ambulate with physical therapy Vital signs are reviewed and remained stable with temperature of 98.6, pulse 82, respiration 18 and blood pressure 112/68 Cardiology on board for follow-up on paroxysmal atrial fibrillation with RVR; patient remains on anticoagulation; permanent pacemaker has been interrogated and reviewed; cardiology has added Toprol 50 mg at night; no further intervention is recommended Urine culture is reviewed and reveals Dory albicans; we will discontinue Rocephin and start patient on Diflucan 100 mg IV daily Plan is for patient to be discharged to skilled rehab once arrangements are completed Objective - Vital Signs Vital signs: Vital Signs Temp 97.9 F 06/02/21 08:24 Pulse 113 H 06/02/21 11:33 Resp 16 06/02/21 11:33 BP 112/68 06/02/21 11:33 Pulse Ox 96 06/02/21 11:33 Intake & Output 06/01/21 06/02/21 06/02/21 18:59 06:59 18:59 Intake Total 168 Output Total 550 1000 Balance -382 -1000 Intake: Oral 168 Output: Urine 550 1000 - Exam PHYSICAL EXAMINATION: GENERAL: The patient is alert and oriented x3, not in any acute distress. Well developed, well nourished. HEENT: Pupils are round and equally reacting to light. EOMI. No scleral icterus. No conjunctival pallor. Normocephalic, atraumatic. No pharyngeal erythema. No thyromegaly. CARDIOVASCULAR: S1 and S2 present. No murmurs, rubs, or gallops. PULMONARY: Chest is clear to auscultation, no wheezing or crackles. ABDOMEN: Soft, nontender, nondistended, normoactive bowel sounds. No palpable organomegaly. MUSCULOSKELETAL: No joint swelling or deformity. EXTREMITIES: No cyanosis, clubbing, or pedal edema. NEUROLOGICAL: Gross neurological examination did not reveal any focal deficits. SKIN: No rashes. - Labs CBC & Chem 7: 06/03/21 12:35 06/03/21 12:35 Labs: Microbiology - Last 24 Hours (Table) 05/31/21 06:21 Urine Culture - Final Urine,Catheterized Dory albicans 05/30/21 16:18 Blood Culture - Preliminary Blood No Growth after 48 hours Assessment and Plan Assessment: 1. UTI/sepsis - Patient is currently on IV Rocephin; urine culture reveals Odry albicans; we will start patient on Diflucan 100 mg daily 2. Altered mental status/metabolic encephalopathy; possibly related to UTI; improving 3. Atrial fibrillation with RVR - IV Cardizem infusion has been discontinued; patient has been placed on metoprolol 50 mg daily; anticoagulation therapy in form of Eliquis 5 mg by mouth twice a day 4. Hypertension; metoprolol 50 mg daily 5. Hyperlipidemia; currently not on antihypertensive therapy 6. COPD; not in exacerbation; Symbicort 804 0.52 puffs twice a day 7. BPH; Flomax 0.4 mg daily DVT prophylaxis; SCDs/Eliquis CODE STATUS; full code
--- NOTE | 2021-06-03 19:53 | P.PN ---
Subjective Progress Note Date: 06/03/21 Principal diagnosis: UTI/sepsis Metabolic encephalopathy possibly related to sepsis Atrial fibrillation with RVR Gait disturbance/debility 89-year-old male patient with history of hypertension, hyperlipidemia, atrial fibrillation, brought to ED via EMS for concern about altered mental status; according to patient's he is alert and oriented 3 and usually has episodes of confusion with UTI 06/02/2021 Patient is seen and evaluated with at bedside; reports patient's mental status is at baseline; patient has been able to ambulate with physical therapy Vital signs are reviewed and remained stable with temperature of 98.6, pulse 82, respiration 18 and blood pressure 112/68 Cardiology on board for follow-up on paroxysmal atrial fibrillation with RVR; patient remains on anticoagulation; permanent pacemaker has been interrogated and reviewed; cardiology has added Toprol 50 mg at night; no further intervention is recommended Urine culture is reviewed and reveals Dory albicans; we will discontinue Rocephin and start patient on Diflucan 100 mg IV daily Plan is for patient to be discharged to skilled rehab once arrangements are completed 06/03/2021 Patient is seen and evaluated with at bedside; patient is alert but not responding to any verbal stimulation; code stroke was called; stat CT of the head was done which was negative Lab review shows elevated ammonia level of 200 which is up from 34 upon admission; patient has received lactulose which will be continued rectally the patient is able to maintain oral intake; monitor ammonia levels closely Detailed discussion with patient's at bedside; she would want to proceed with neurology consultation at this time for further evaluation of the stroke I received a phone call from patient's nurse reporting that patient and family have decided to proceed with DO NOT RESUSCITATE and comfort care; patient's family would want to meet with hospice care tomorrow morning Objective - Vital Signs Vital signs: Vital Signs Temp 98.1 F 06/03/21 08:00 Pulse 100 06/03/21 08:00 Resp 17 06/03/21 08:00 BP 136/76 06/03/21 08:00 Pulse Ox 96 06/03/21 08:00 Intake & Output 06/02/21 06/03/21 06/03/21 18:59 06:59 18:59 Intake Total 100 120 Output Total 1200 1120 425 Balance -2339 -1120 -628 Intake: Intake, IV Titration 100 Amount Fluconazole in NaCl,Iso- 100 Osm 200 mg In Saline 1 100ml.bag @ 100 mls/hr IVPB DAILY [facility] Rx#: [id number] Oral 120 Output: Urine 1200 1120 Post Void Residual 425 Other: Voiding Method Urinal Urinal Diaper Diaper # Voids 3 1 # Bowel Movements 2 - Exam PHYSICAL EXAMINATION: GENERAL: The patient is alert and oriented x3, not in any acute distress. Well developed, well nourished. HEENT: Pupils are round and equally reacting to light. EOMI. No scleral icterus. No conjunctival pallor. Normocephalic, atraumatic. No pharyngeal erythema. No thyromegaly. CARDIOVASCULAR: S1 and S2 present. No murmurs, rubs, or gallops. PULMONARY: Chest is clear to auscultation, no wheezing or crackles. ABDOMEN: Soft, nontender, nondistended, normoactive bowel sounds. No palpable organomegaly. MUSCULOSKELETAL: No joint swelling or deformity. EXTREMITIES: No cyanosis, clubbing, or pedal edema. NEUROLOGICAL: Gross neurological examination did not reveal any focal deficits. SKIN: No rashes. - Labs CBC & Chem 7: 06/03/21 12:35 06/03/21 12:35 Labs: Abnormal Lab Results - Last 24 Hours (Table) 06/03/21 Range/Units 08:49 POC Glucose (mg/dL) 124 H (75-99) mg/dL Microbiology - Last 24 Hours (Table) 05/30/21 16:18 Blood Culture - Preliminary Blood No Growth after 72 hours 05/31/21 06:21 Urine Culture - Final Urine,Catheterized Dory albicans Assessment and Plan Assessment: 1. UTI/sepsis - Patient is currently on IV Rocephin; urine culture reveals Dory albicans; we will start patient on Diflucan 100 mg daily 2. Altered mental status/metabolic encephalopathy; possibly related to UTI; improving 3. Atrial fibrillation with RVR - IV Cardizem infusion has been discontinued; patient has been placed on metoprolol 50 mg daily; anticoagulation therapy in form of Eliquis 5 mg by mouth twice a day 4. Hypertension; metoprolol 50 mg daily 5. Hyperlipidemia; currently not on antihypertensive therapy 6. COPD; not in exacerbation; Symbicort 804 0.52 puffs twice a day 7. BPH; Flomax 0.4 mg daily DVT prophylaxis; SCDs/Eliquis CODE STATUS; full code
[2021-06-03] MEDS ORDERED: LACTULOSE 200 GM/300 ML (FROM 1/2 GAL JUG) RECTAL SCH (20:36)
[2021-06-03] MEDS ORDERED: METOPROLOL TARTRATE 5 MG/5 ML VIAL IVP STA (20:37)
[2021-06-03] MEDS: METOPROLOL SUCCINATE (ER) 50 MG TAB.ER.24H PO SCH (20:38)
[2021-06-04] MEDS: LACTULOSE 200 GM/300 ML (FROM 1/2 GAL JUG) RECTAL SCH ×6 (02:01→22:22)
[2021-06-04] MEDS ORDERED: METOPROLOL TARTRATE 5 MG/5 ML VIAL IVP STA (04:45)
[2021-06-04] MEDS: SODIUM CHLORIDE 0.9% 1,000 ML IV SCH ×2 (05:01→07:40)
[2021-06-04] MEDS: PANTOPRAZOLE 40 MG TABLET PO SCH (05:18)
[2021-06-04] MEDS: SYMBICORT 80-4.5 MCG INHALER INHALATION SCH ×2 (07:40→20:34)
[2021-06-04] MEDS: FOLIC ACID 1 MG TAB PO SCH (08:06)
[2021-06-04] MEDS: FLUCONAZOLE IN NACL,ISO-OSM 200 MG in SALINE 1 100ML.BAG IVPB SCH (08:06)
[2021-06-04] MEDS: METOPROLOL SUCCINATE (ER) 50 MG TAB.ER.24H PO SCH (08:06)
[2021-06-04] MEDS: APIXABAN 5 MG TAB PO SCH ×2 (08:07→22:14)
[2021-06-04] MEDS: MULTIVITAMINS, THERA 1 EACH TAB PO SCH (08:07)
[2021-06-04] MEDS: THIAMINE 100 MG TAB PO SCH (08:07)
[2021-06-04 08:16] LABS: Basophils % (A) 1 %; Eosinophils # (A) 0.3 k/uL (0-0.7); Eosinophils % (A) 4 %; HCT 41.8 % (39.0-53.0); HGB 13.7 gm/dL (13.0-17.5); Lymphocytes # (A) 0.8 k/uL (1.0-4.8); Lymphocytes % (A) 11 %; MCH 30.1 pg (25.0-35.0); MCHC 32.7 g/dL (31.0-37.0); MCV 92.2 fL (80.0-100.0); Mean Platelet Volume 7.3; Monocytes # (A) 0.6 k/uL (0-1.0); Monocytes % (A) 9 %; Neutrophils % (A) 73 %; Platelet Count 126 k/uL (150-450); RBC 4.53 m/uL (4.30-5.90); RDW 14.8 % (11.5-15.5); WBC 6.9 k/uL (3.8-10.6)
[2021-06-04 08:34] LABS: African American GFR (CKD) >90 (>60 ml/min/1.73 sqM); Anion Gap 8 mmol/L; Blood Urea Nitrogen 16 mg/dL (9-20); Calcium 9.3 mg/dL (8.4-10.2); Carbon Dioxide 21 mmol/L (22-30); Chloride 112 mmol/L (98-107); Glucose 93 mg/dL (74-99); Non-African American GFR(CKD) 78 (>60 ml/min/1.73 sqM); Potassium 3.8 mmol/L (3.5-5.1); Sodium 141 mmol/L (137-145)
[2021-06-04] MEDS: ACETAMINOPHEN TAB 325 MG TAB PO PRN (09:56)
[2021-06-04] MEDS: IOPAMIDOL CONTRAST (ORAL USE) VIAL PO PRN ×2 (13:30→14:08)
[2021-06-04 13:52] LABS: INR 1.4 (<1.2); Prothrombin Time 13.8 sec (9.0-12.0)
--- NOTE | 2021-06-04 13:52 | P.PN ---
Subjective This is a 89-year-old male with a past medical history significant for paroxysmal atrial fibrillation, CVA, and sick sinus syndrome with pacemaker im [place]. Patient follows in the office with Dr. Matias. We have been asked to see the patient in consultation for afib with RVR. Patient was brought into the hospital on 05/30/21 via EMS for altered mental status. EKG on admission revealed afib with RVR. Patient was started on a Cardizem drip. Brain CT completed revealing degenerative and nonspecific white matter changes most compatible remote ischemia with no evidence for mass effect. Echocardiogram completed in May 2021 revealed ejection fraction 65-70%. Trace mitral regurgitation. Mild tricuspid regurgitation On 06/02, Permanent pacemaker has been interrogated and reviewed with no acute findings . quality assurance monitor is atrial fibrillation with controlled rate. On 06/03 Patient is found to be more confused today and not able to follow commands and code stroke has been called. His ammonia levels were elevated. He was not taking any PO medications 06/04/21: Patient seen and examined at bedside, more alert. He is now taking his PO medications. His ammonia level improved. Telemetry reviewed patient age fibrillation with uncontrolled rates heart rates in the 140s. He's currently maintained on metoprolol succinate 50mg daily, Eliquis 5 mg twice a day. He was tachycardic overnight and IV Lopressor 5mg was given overnight. Labs, sodium 141, potassium 4.8, BUN 16, serum creatinine 0.8, ammonia 45, W C6 0.9, hemoglobin 13, platelets 26. PHYSICAL EXAM: VITAL SIGNS: 160/79, heart rate 146, afebrile oxygen saturation is 94% on room air GENERAL: Well-developed in no acute distress. HEENT: Head is normocephalic. Pupils are equal, round. Sclerae anicteric. Mucous membranes of the mouth are moist. Neck supple. No JVD or thyromegaly LUNGS: Respirations even and unlabored. Lungs essentially clear to auscultation bilaterally. HEART: Irregular rate and rhythm. S1 and S2 heard. Systolic murmur noted ABDOMEN: Soft. Nondistended. Nontender. EXTREMITIES: Normal range of motion. No clubbing or cyanosis. Peripheral pulses intact. No lower extremity edema NEUROLOGIC: Alert and oriented to person and place ASSESSMENT: Altered mental status, unclear etiology Paroxysmal atrial fibrillation with RVR, on anticoagulation with Eliquis History of CVA Sick sinus syndrome with previous pacemaker implantation Elevated ammonia level PLAN -Discontinue metoprolol succinate and start metoprolol tartrate 50mg TID -Increase in heart rate likely due to not taking his PO medications for about 2 days -Continue anticoagulation with Eliquis -Further recommendations based on clinical course Nurse practitioner note has been reviewed by physician. Signing provider agrees with the documented findings, assessment, and plan of care. Objective - Vital Signs Vital signs: Vital Signs Temp 98.1 F 06/04/21 07:56 Pulse 146 H 06/04/21 08:00 Resp 18 06/04/21 08:00 BP 160/79 06/04/21 07:56 Pulse Ox 94 L 06/04/21 07:56 Intake & Output 06/03/21 06/04/21 06/04/21 18:59 06:59 18:59 Intake Total 1120 Output Total 1325 1875 Balance -205 -1875 Weight 74.5 kg Intake: Intake, IV Titration 1000 Amount Sodium Chloride 0.9% 1, 1000 000 ml @ 100 mls/hr IV . Q10H [facility] Rx#:[id number] Oral 120 Output: Urine 900 1875 [place] ([place]) 750 Post Void Residual 425 Other: Voiding Method Urinal Indwelling Catheter Indwelling Catheter Diaper # Bowel Movements 1 1 - Labs CBC & Chem 7: 06/04/21 07:32 06/04/21 07:32 Labs: Abnormal Lab Results - Last 24 Hours (Table) 06/03/21 06/03/21 06/04/21 Range/Units 15:07 23:07 07:32 Plt Count 126 L (150-450) k/uL Lymphocytes # 0.8 L (1.0-4.8) k/uL Chloride (98-107) mmol/L Carbon Dioxide (22-30) mmol/L Ammonia 202 H 92 H (<30) umol/L 06/04/21 06/04/21 Range/Units 07:32 12:02 Plt Count (150-450) k/uL Lymphocytes # (1.0-4.8) k/uL Chloride 112 H (98-107) mmol/L Carbon Dioxide 21 L (22-30) mmol/L Ammonia 45 H (<30) umol/L Microbiology - Last 24 Hours (Table) 05/30/21 16:18 Blood Culture - Preliminary Blood No Growth after 96 hours
--- NOTE | 2021-06-04 15:36 | PN ---
PROGRESS NOTE DATE OF SERVICE: 06/04/2021 This 89-year-old gentleman admitted with change in mental status and possibility of sepsis also had Dory grown from the culture. The patient was confused yesterday. Full stroke workup done is negative at this time. The patient also had elevated ammonia of unknown significance with ammonia 202, 92 and 45. Patient is on lactulose at this time. Past medical history reviewed. REVIEW OF SYSTEMS: CARDIOVASCULAR SYSTEM: No angina. RESPIRATION: As mentioned earlier. GI: As mentioned earlier. : No dysuria. NERVOUS SYSTEM: No numbness, weakness. CURRENT MEDICATIONS: Reviewed. They include Tylenol, Eliquis, Symbicort, Colace, Rocephin, fluconazole, lactulose, Lopressor, vitamin B1. PHYSICAL EXAMINATION: Patient is conscious, confused. Pulse is 146, blood pressure 160/70, respiration 18, temperature 98.1, pulse ox 94% on room air. HEENT: Conjunctivae normal. NECK: No jugular venous distention. CARDIOVASCULAR: S1, S2 muffled. RESPIRATION: Breath sounds diminished at the bases. A few rhonchi. No crackles. ABDOMEN: Soft, nontender. LEGS: No edema. No swelling. NERVOUS SYSTEM: Diffusely weak. LABS: CT angiography and CT brain, which I reviewed personally, were negative at this time. Chronic-appearing periventricular changes were noted on the CT scan of the brain. Otherwise, platelets are 126, chloride is 21. ASSESSMENT: 1. Possible acute urinary tract infection with sepsis, present on admission. 2. Urine cultures growing Dory albicans. 3. Possible metabolic acidosis secondary to hepatic encephalopathy. 4. Elevated ammonia. 5. Atrial fibrillation with rapid ventricular rate. 6. Hypertension. 7. Hyperlipidemia. 8. Chronic obstructive pulmonary disease. 9. Benign prostatic hypertrophy. 10.Mild thrombocytopenia. 11.Elevated INR. 12.NO CODE, NO CPR, NO VENT. RECOMMENDATIONS AND DISCUSSION: In this 89-year-old gentleman who presented with multiple complex medical issues, we will monitor the patient closely, continue the current medications. Continue the antibiotics. Continue with Diflucan. Otherwise, continue with lactulose. The patient might be having underlying chronic liver disease causing hyperammonemia. Will continue to monitor. Stop the IV fluids. Further recommendations to follow. MMODL / IJN: [id number] /
--- NOTE | 2021-06-04 15:51 | CT ---
EXAMINATION TYPE: CT abdomen pelvis wo con DATE OF EXAM: 06/04/2021 COMPARISON: 03/05/2021 INDICATION: Chronic liver disease. DLP: 602.4 mGycm, Automated exposure control for dose reduction was used. CONTRAST: 0 mL of Isovue 300. Study performed with Oral Contrast TECHNIQUE: Axial images were obtained from above the diaphragm to the pubic rami in the axial plane a t 5 mm thick sections. Reconstructed images are reviewed on the computer in the coronal plane. FINDINGS: Limited CT sections are obtained the lung bases. Small bilateral pleural effusions are present. Some mild compressive atelectasis is adjacent. Coronary artery calcifications present.. CT ABDOMEN: Liver: Some biliary dilatation may be present. This is similar appearance to comparison. Spleen: Normal Pancreas: Atrophic Adrenal glands: Right adrenal gland is not well visualized. Left adrenal gland appears normal. Gallbladder: Not well visualized. Correlate with surgical history Kidneys: No masses are evident. No hydronephrosis is present. No cysts are present. No renal stone s are identified. Aorta: Vascular calcification is within the aorta. Inferior vena cava: Normal. CT PELVIS: Loops of bowel within the abdomen and pelvis are normal. There are loops of bowel which are incom pletely distended or lack oral contrast limiting their evaluation. Appendix: Not identified. No dilated tubular structure or inflammatory change is evident. Urinary bladder: Decompressed with [place] catheter. Genitourinary structures: Prostate is normal. Osseous structures: No suspicious lytic or sclerotic lesions. Multiple compression deformities of the lumbar spine are evident. Some vertebroplasty appears to be present L1. Vacuum disc phenomenon is pr esent. IMPRESSIONS: 1. Chronic biliary dilatation. No interval change is evident. 2. Small bilateral pleural effusions with adjacent compressive atelectasis.
--- NOTE | 2021-06-04 15:53 | P.CNNES ---
History of Present Illness Consult date: 06/04/21 Requesting physician: Ángel Newman Reason for Consult: rule out CVA; Code stroke this am History of Present Illness: Patient is a 89-year-old male came to the hospital by ambulance on 05/30/2021 at 8:35 AM for altered level of consciousness. Patient normally is alert and oriented 3 and can hold a conversation. When EMS arrived patient was able to respond to his name but unable to answer any other questions. He was recently tested for UTI which was negative couple days prior to arrival. Patient was alert and oriented 1. Patient's vitals at the scene was blood pressure 128/86, pulse rate 146, respiration 16 saturation 98% and blood sugar 134. GCS was 14. Patient had a stroke code activated yesterday, called by nursing staff regarding patient's worsening mentation. CT head revealed chronic appearing stable periventricular white matter ischemic type changes. Some age-related atrophy is present. Findings stable from 05/30/2021. Some minimal acute sphenoid sinusitis. CTA of head and neck showed no flow-limiting stenosis involving bilateral carotid bifurcation. Normal [place]. When the professional benefits sales consultant physician saw the patient, patient was obtunded and barely responsive to sternal rub. His ammonia level was very high at 202. Ammonia level on presentation was 45. Patient does not have any known underlying liver disease. Patient remained confused. Rectal lactulose every 2 hours for 3 doses and then every 4 hours thereafter was recommended. Patient was evaluated by Dr. Carlos by tele- neurology. Patient was not a candidate for TPA because being on anticoagulation. Patient's home medications include Eliquis 5 mg twice a day, metoprolol 25 minute at bedtime, and amoxicillin. Repeat ammonia level was recommended, which now has come down to 92, as of yesterday 11 PM. Today it has further come down to 45. Patient is doing much better. He is able to communicate, follow commands, although still moaning. Yesterday according to his was completely unresponsive. Patient's also mentions that in June 2020 he suffered from pneumonia. He was given antibiotics but developed some side effects. He developed swelling of the legs and then could not urinate. [place]'s catheter was placed and was found to have prostate enlargement. He underwent surgery for the prostate but afterwards he developed UTI. He was given For 8 days. In the month of February and March he was doing much better. However few weeks ago he fell out of the chair, fracturing his femur. Surgery was done and after which she required catheterization of the urinary bladder. He stayed in the senior living for 2 weeks. Afterwards the catheter was taken out. At home he was noted to be not as strong. Patient's believes that he developed another urinary tract infection. His mentation got worse yesterday, when he could not respond, was not following commands. Today he is much better. Patient's blood test shows normal CBC, INR is 1.4, normal electrolytes, renal functions. Normal lipid panel. Thyroid functions are normal. UA shows 6 WBCs and small amount of leukocyte Estrace. Rare bacteria. Patient's urine culture has grown Dory albicans. Blood cultures negative. Patient is currently on IV fluconazole as well as Rocephin. Patient probably had some oral thrush as well. Review of Systems Patient moaning. Denies any headache. Did not elect to answer details of the ROS. 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 History of Any Multi-Drug Resistant Organisms: None Reported Past Surgical History: Appendectomy, Cardiac Ablation, Cholecystectomy, Heart Catheterization, Orthopedic Surgery, Pacemaker Additional Past Surgical History / Comment(s): 08/30/20 TURP, laparotomy for ulcer repair/partial gastrectomy, hemorrhoidectomy, colonoscopies, EGDs, bilateral cataract removals, skin cancer removed from face, occipital nerve injections. Fall with R HIP Fx with Sx repair on 04/15/21 Past Anesthesia/Blood Transfusion Reactions: No Reported Reaction Type of Cardiac Device: Permanent Pacemaker Device Placement Date:: 2013 Past Psychological History: No Psychological Hx Reported Additional Psychological History / Comment(s): Pt resides with his spouse. He uses a cane and walker when out. He can drive, spouse does most of the driving. Spouse manages his medications. Smoking Status: Former smoker Past Alcohol Use History: None Reported Additional Past Alcohol Use History / Comment(s): STARTED SMOKING AT AGE 22, SMOKED 1 PPD. HAD QUIT ONCE FOR 1O YEARS THEN RESTARTED AFTER OF SON, QUIT IN 1999. Past Drug Use History: None Reported - Past Family History Father Family Medical History: CVA/TIA Additional Family Medical History / Comment(s): Father had TIAs. He passed at the age of 82 yrs. Mother Family Medical History: Diabetes Mellitus Additional Family Medical History / Comment(s): AT AGE 76. Medications and Allergies Home Medications Medication Instructions Recorded Confirmed Type Fluticasone/Salmeterol [Advair 1 puff INHALATION RT-BID 02/28/14 05/30/21 History 250-50 Diskus] Apixaban [Eliquis] 5 mg PO BID 05/20/17 05/30/21 History Metoprolol Succinate [Toprol XL] 25 mg PO HS 07/08/20 05/30/21 History Acetaminophen Tab [Tylenol] 650 mg PO Q6H PRN 03/04/21 05/30/21 History Docusate [Colace] 100 mg PO BID PRN 3 Days #6 cap 03/16/21 05/30/21 Rx Acetic Acid/Hydrocortisone [Vosol 4 drops BOTH EARS TID 04/13/21 05/30/21 History Hc Otic] Amoxicillin 500 mg PO Q8H 05/30/21 05/30/21 History Allergies Allergy/AdvReac Type Severity Reaction Status Date / Time sulfamethoxazole Allergy Unknown Verified 05/30/21 10:49 [From Bactrim] temazepam [From Restoril] Allergy Unknown Verified 05/30/21 10:49 trimethoprim [From Bactrim] Allergy Unknown Verified 05/30/21 10:49 verapamil Allergy Unknown Verified 05/30/21 10:49 codeine AdvReac Intermediate Hallucinati Verified 05/30/21 10:49 ons atorvastatin [From Lipitor] AdvReac Nausea & Verified 05/30/21 10:49 Vomiting prednisone AdvReac agitated Verified 05/30/21 10:49 Physical Examination - Vital Signs Vital Signs: Vital Signs Temp Pulse Resp BP Pulse Ox 06/04/21 08:00 146 H 18 06/04/21 07:56 98.1 F 146 H 18 160/79 94 L 06/04/21 02:00 117 H 16 146/82 94 L 06/03/21 21:21 129 H 16 119/90 94 L 06/03/21 16:00 98.2 F 112 H 21 137/95 95 06/03/21 14:15 98 F 110 H 19 139/87 97 Intake and Output 06/03/21 06/04/21 06/04/21 22:59 06:59 14:59 Intake Total 1000 Output Total 1999 375 Balance -1000 -375 Intake: Intake, IV Titration 1000 Amount Sodium Chloride 0.9% 1, 1000 000 ml @ 100 mls/hr IV . Q10H [facility] Rx#:[id number] Oral 0 Output: Urine 1999 Urether[place] ([place]) 750 Other: Voiding Method Indwelling Catheter Indwelling Catheter # Bowel Movements 1 1 Weight 74.5 kg Patient is an elderly male, who is moaning, groaning at times. Patient is awake, slow mentation, appears encephalopathic. He knows his name, his age. He knows the city [place] and the state he lives in. Speech and languag e functions are normal. Attention, concentration and fund of knowledge is limited. Detail cognitive function testing deferred. On cranial examination, pupils are round and reacting to light, visual fontenot are full on confrontation, extraocular muscles are intact with no nystagmus. Face is symmetric, tongue protrudes to the midline. Palatal elevation and sensation normal, hearing is moderately decreased and shoulder shrug normal, facial sensation normal. Shoulder shrug normal. On muscle strength testing, the strength is equal in the arms and legs. He did not cooperate well. Swine Nutritionist is about 4+, biceps and triceps are 4+ to 5- bilaterally. Patient strength is normal at the ankles. He is able to lift his legs off the bed and hold it about 10 for a short while. Deep tendon reflexes are 1 in the upper limbs, 1 at the knees and plantars downgoing bilaterally. Sensory to touch is equal with no neglect. Cerebellar function showed no ataxia for [id number] testing. Tone and bulk of muscles normal. Gait not checked. On general examination, there is no carotid bruit or murmur, S1-S2 audible. Abdomen is soft nontender. Chest is clear. Peripheral pulses are present. Results - Laboratory Findings CBC and BMP: 06/04/21 07:32 06/04/21 07:32 Abnormal Lab Findings: Abnormal Labs 05/30/21 05/30/21 05/30/21 09:03 09:03 09:03 WBC RBC Hgb Hct Plt Count Lymphocytes # 0.8 L PT INR Chloride Carbon Dioxide Anion Gap Glucose 114 H POC Glucose (mg/dL) Ammonia 45 H Total Protein Albumin Ur Leukocyte Esterase Urine WBC Urine Mucus 05/30/21 05/30/21 05/31/21 09:06 09:28 05:48 WBC 4.41 L RBC 4.28 L Hgb 12.7 L Hct 39.4 L Plt Count 136 L Lymphocytes # 0.55 L PT 12.1 H INR 1.2 H Chloride Carbon Dioxide Anion Gap Glucose POC Glucose (mg/dL) Ammonia Total Protein Albumin Ur Leukocyte Esterase Small H Urine WBC 6 H Urine Mucus Rare H 05/31/21 06/03/21 06/03/21 05:51 08:49 12:35 WBC RBC Hgb Hct Plt Count 103 L Lymphocytes # 0.9 L PT INR Chloride Carbon Dioxide Anion Gap 12.80 H Glucose POC Glucose (mg/dL) 124 H Ammonia Total Protein Albumin Ur Leukocyte Esterase Urine WBC Urine Mucus 06/03/21 06/03/21 06/03/21 12:35 12:35 15:07 WBC RBC Hgb Hct Plt Count Lymphocytes # PT 13.9 H INR 1.4 H Chloride Carbon Dioxide Anion Gap Glucose 100 H POC Glucose (mg/dL) Ammonia 202 H Total Protein 5.5 L Albumin 2.8 L Ur Leukocyte Esterase Urine WBC Urine Mucus 06/03/21 06/04/21 06/04/21 23:07 07:32 07:32 WBC RBC Hgb Hct Plt Count 126 L Lymphocytes # 0.8 L PT INR Chloride 112 H Carbon Dioxide 21 L Anion Gap Glucose POC Glucose (mg/dL) Ammonia 92 H Total Protein Albumin Ur Leukocyte Esterase Urine WBC Urine Mucus Assessment and Plan Assessment: * Altered mental status, likely due to hepatic encephalopathy. Patient's ammonia level was very elevated 202 yesterday. Rule out cirrhosis. Patient's mentation has much improved at this time, and ammonia level also has improved to 45. * Paroxysmal atrial fibrillation, currently on anticoagulation with Eliquis. Examination is nonfocal, no evidence of CVA. * History of pacemaker. * Dory albicans UTI. On fluconazole IV. Plan: * Continue Eliquis 5 mg twice a day for stroke prevention. No need for adding aspirin at this time, as the altered mental status was clearly due to hepatic encephalopathy. * Patient undergoing CT of abdomen and pelvis. Suggest GI consultation for further evaluation of hyperammonemia. Continue lactulose. * CTA of head and neck showed no significant stenosis. * 2-D echo from 04/14/2021 shows normal left-ventricular size. Normal left ventricular wall thickness. EF is between 65-70%. Trace MR. * No other neurological workup indicated. * Discussed with patient's in detail.
[2021-06-04] MEDS: METOPROLOL TARTRATE 50 MG TAB PO SCH ×2 (17:34→22:13)
[2021-06-05] MEDS: PANTOPRAZOLE 40 MG TABLET PO SCH (07:00)
[2021-06-05] MEDS: LACTULOSE 200 GM/300 ML (FROM 1/2 GAL JUG) RECTAL SCH ×3 (07:00→10:32)
[2021-06-05] MEDS: SYMBICORT 80-4.5 MCG INHALER INHALATION SCH ×2 (07:22→20:05)
[2021-06-05] MEDS: APIXABAN 5 MG TAB PO SCH ×2 (07:49→20:45)
[2021-06-05] MEDS: METOPROLOL TARTRATE 50 MG TAB PO SCH ×3 (07:49→20:45)
[2021-06-05 08:14] LABS: Basophils % (A) 0 %; Eosinophils # (A) 0.4 k/uL (0-0.7); Eosinophils % (A) 6 %; HCT 39.6 % (39.0-53.0); HGB 13.4 gm/dL (13.0-17.5); Lymphocytes # (A) 0.9 k/uL (1.0-4.8); Lymphocytes % (A) 15 %; MCH 31.1 pg (25.0-35.0); MCHC 33.9 g/dL (31.0-37.0); MCV 91.7 fL (80.0-100.0); Mean Platelet Volume 7.7; Monocytes # (A) 0.6 k/uL (0-1.0); Monocytes % (A) 9 %; Neutrophils % (A) 66 %; Platelet Count 108 k/uL (150-450); RBC 4.31 m/uL (4.30-5.90); RDW 14.8 % (11.5-15.5); WBC 6.1 k/uL (3.8-10.6)
[2021-06-05 08:38] LABS: ALT 14 U/L (4-49); AST 23 U/L (17-59); African American GFR (CKD) >90 (>60 ml/min/1.73 sqM); Albumin 2.6 g/dL (3.5-5.0); Alkaline Phosphatase 60 U/L (38-126); Anion Gap 4 mmol/L; Blood Urea Nitrogen 15 mg/dL (9-20); Calcium 8.7 mg/dL (8.4-10.2); Carbon Dioxide 23 mmol/L (22-30); Chloride 110 mmol/L (98-107); Glucose 100 mg/dL (74-99); Non-African American GFR(CKD) 84 (>60 ml/min/1.73 sqM); Potassium 3.5 mmol/L (3.5-5.1); Sodium 137 mmol/L (137-145); Total Bilirubin 1.5 mg/dL (0.2-1.3); Total Protein 5.3 g/dL (6.3-8.2)
[2021-06-05] MEDS: FLUCONAZOLE IN NACL,ISO-OSM 200 MG in SALINE 1 100ML.BAG IVPB SCH (08:57)
[2021-06-05] MEDS: AMIODARONE 200 MG TAB PO SCH ×2 (10:20→20:45)
[2021-06-05] MEDS: MULTIVITAMINS, THERA 1 EACH TAB PO SCH (11:59)
[2021-06-05] MEDS: FOLIC ACID 1 MG TAB PO SCH (11:59)
[2021-06-05] MEDS: THIAMINE 100 MG TAB PO SCH (11:59)
[2021-06-05] MEDS: LACTULOSE 20 GM/30 ML CUP PO SCH ×2 (11:59→16:04)
[2021-06-05] MEDS: TAMSULOSIN 0.4 MG CAP.ER.24H PO SCH (11:59)
--- NOTE | 2021-06-05 12:21 | PN ---
PROGRESS NOTE Mr. Crane remains in atrial fibrillation. Rate is better but not quite optimal. He is known to have atrial fibrillation, paroxysmal in nature, but rate was usually well controlled. He has probably some underlying infection, making the rate faster. However, he is hemodynamically stable. I will add amiodarone 200 mg b.i.d. to his regimen, continue the beta isaiah which was added yesterday, and we can increase activity and plan for discharge. From a cardiac standpoint, we will optimize rate control and continue apixaban 5 mg b.i.d. and upon discharge, he can see Dr. Matias in 1-2 weeks. Vitals are stable. Heart rate is faster. S1-S2 heard normally with irregular rhythm, short systolic murmur. Lungs reveal improved air entry. Abdomen is soft. Lower extremities reveal diminished pulses. Central nervous system grossly no focal deficits. IMPRESSION: Atrial fibrillation, rapid ventricular rate, with some modest improvement in rate control. RECOMMENDATIONS: Same medical regimen plus add amiodarone 200 mg b.i.d. Okay for discharge on current medical regimen and see Dr. Matias upon discharge in 1-2 weeks. MMODL / IJN: [id number] /
--- NOTE | 2021-06-05 16:04 | P.PN ---
Subjective Progress Note Date: 06/05/21 This is an 89-year-old male who was recently admitted with change in mental status and possibility of sepsis and is being closely monitored. Patient has had some improvement in confusion and mentation. Son at the bedside states he is not as his baseline but is improving and currently being fed by the son. Patient continues to have some difficulties with thin liquids and recommend continue thickened liquids and speech therapy to evaluate closely. Patient was on lactulose scheduled for elevated ammonia and ammonia is improved and did not receive lactulose yesterday. Patient continues with indwelling [place] catheter and recommend continue. Cardiology following closely and has adjusted amiodaro ne oral to 200 mg twice daily with close monitoring. Review of systems: Constitutional: No reports of fatigue, fever, or chills Cardiovascular: No reports of chest pain or palpitations Respiratory: No reports of shortness of breath or cough GI: No reports of nausea, vomiting, or diarrhea : No reports of dysuria or retention Neurovascular: reports of generalized weakness All medications have been reviewed Active Medications Acetaminophen (Acetaminophen Tab 325 Mg Tab) 650 mg PO Q6HR PRN PRN Reason: Mild Pain or Fever > 100.5 Last Admin: 06/04/21 09:56 Dose: 650 mg Documented by: Amiodarone HCl (Amiodarone 200 Mg Tab) 200 mg PO BID [facility] Last Admin: 06/05/21 10:20 Dose: 200 mg Documented by: Apixaban (Apixaban 5 Mg Tab) 5 mg PO BID [facility]; Protocol Last Admin: 06/05/21 07:49 Dose: 5 mg Documented by: Budesonide/Formoterol Fumarate (Symbicort 80-4.5 Mcg Inhaler) 2 puff INHALATION RT-BID [facility] Last Admin: 06/05/21 07:22 Dose: 2 puff Documented by: Docusate Sodium (Docusate 100 Mg Cap) 100 mg PO BID PRN PRN Reason: Constipation Folic Acid (Folic Acid 1 Mg Tab) 1 mg PO DAILY@1200 [facility] Last Admin: 06/05/21 11:59 Dose: 1 mg Documented by: Ceftriaxone Sodium 1 gm/ (Sodium Chloride) 50 mls @ 100 mls/hr IVPB Q24HR [facility] Last Admin: 06/05/21 07:49 Dose: 100 mls/hr Documented by: Fluconazole/Sodium Chloride (200 mg/ IV Solution) 100 mls @ 100 mls/hr IVPB DAILY [facility] Last Admin: 06/05/21 08:57 Dose: 100 mls/hr Documented by: Lactulose (Lactulose 20 Gm/30 Ml Cup) 30 gm PO QID [facility] Last Admin: 06/05/21 11:59 Dose: 30 gm Documented by: Metoprolol Tartrate (Metoprolol Tartrate 50 Mg Tab) 50 mg PO TID [facility] Last Admin: 06/05/21 07:49 Dose: 50 mg Documented by: Multivitamins (Multivitamins, Thera 1 Each Tab) 1 each PO DAILY@1200 [facility] Last Admin: 06/05/21 11:59 Dose: 1 each Documented by: Naloxone HCl (Naloxone 0.4 Mg/Ml 1 Ml Vial) 0.2 mg IV Q2M PRN PRN Reason: Opioid Reversal Pantoprazole Sodium (Pantoprazole 40 Mg Tablet) 40 mg PO [facility] Last Admin: 06/05/21 07:00 Dose: 40 mg Documented by: Tamsulosin HCl (Tamsulosin 0.4 Mg Cap.Er.24h) 0.4 mg PO [facility] Last Admin: 06/05/21 11:59 Dose: 0.4 mg Documented by: Thiamine HCl (Thiamine 100 Mg Tab) 100 mg PO DAILY@1200 [facility] Last Admin: 06/05/21 11:59 Dose: 100 mg Documented by: Physical exam: Gen: This is a 89-year-old male awake, alert and oriented 2-3, thin built. Temp is 97.5F, pulse is 114, respirations are 18, blood pressure 144/81, oxygen saturation is 94% on room air. HEENT: Head is atraumatic, normocephalic. Pupils equal, round. Sclerae is anicteric. NECK: Supple. No JVD. No lymphadenopathy. No thyromegaly. LUNGS: Clear to auscultation. No wheezes or rhonchi. No intercostal retractions. HEART: Regular rate and rhythm. No murmur. ABDOMEN: Soft. Bowel sounds are present. No masses. No tenderness. EXTREMITIES: No pedal edema. No calf tenderness. NEUROLOGICAL: Patient is awake, alert and oriented x3. Cranial nerves 2 through 12 are grossly intact. Assessment: Possible acute urinary tract infection with sepsis, present on admission Urine cultures growing Dory albicans Possible metabolic acidosis secondary to hepatic encephalopathy Elevated ammonia Atrial fibrillation with fast ventricular rate Hypertension Hyperlipidemia Chronic obstructive pulmonary disease benign prostatic hypertrophy Mild thrombocytopenia Elevated INR No code, no CPR, no vent Plan: Recommend to continue with current medications and current management. Cardiology following closely and have adjusted to oral amiodarone 200 mg twice daily and continue with metoprolol. Urine cultures showing Dory albicans and will continue with Diflucan. Patient was on scheduled lactulose for elevated ammonia levels and ammonia is 36 today and per nursing patient has not receive lactulose since yesterday. Patient's mentation has improved and son at the bedside. Due to multiple Medical issues, prognosis is guarded. Further recom mendations to follow based on the clinical course of the patient. PT/OT to evaluate the patient and social work following for possible ECF placement as patient is quite weak. Will repeat labs and continue to monitor closely. Objective - Vital Signs Vital signs: Vital Signs Temp 98.4 F 06/05/21 15:32 Pulse 102 H 06/05/21 15:32 Resp 17 06/05/21 15:32 BP 149/87 06/05/21 15:32 Pulse Ox 96 06/05/21 15:32 Intake & Output 06/04/21 06/05/21 06/05/21 18:59 06:59 18:59 Intake Total 20 236 Output Total 300 600 275 Balance -280 -600 -39 Weight 74.5 kg 68 kg Intake: Oral 20 236 Output: Urine 300 600 275 Other: Voiding Method Indwelling Catheter Indwelling Catheter Indwelling Catheter # Bowel Movements 1 2 - Labs CBC & Chem 7: 06/05/21 07:44 06/05/21 07:44 Labs: Abnormal Lab Results - Last 24 Hours (Table) 06/05/21 06/05/21 06/05/21 Range/Units 07:44 07:44 07:44 Plt Count 108 L (150-450) k/uL Lymphocytes # 0.9 L (1.0-4.8) k/uL Chloride 110 H (98-107) mmol/L Glucose 100 H (74-99) mg/dL Total Bilirubin 1.5 H (0.2-1.3) mg/dL Ammonia 36 H (<30) umol/L Total Protein 5.3 L (6.3-8.2) g/dL Albumin 2.6 L (3.5-5.0) g/dL Microbiology - Last 24 Hours (Table) 05/30/21 16:18 Blood Culture - Preliminary Blood No Growth after 120 hours
[2021-06-05] MEDS: ACETAMINOPHEN TAB 325 MG TAB PO PRN (20:45)
[2021-06-06] MEDS: LACTULOSE 20 GM/30 ML CUP PO SCH ×3 (07:49→20:04)
[2021-06-06] MEDS: PANTOPRAZOLE 40 MG TABLET PO SCH (07:49)
[2021-06-06] MEDS: AMIODARONE 200 MG TAB PO SCH ×2 (07:49→20:37)
[2021-06-06] MEDS: APIXABAN 5 MG TAB PO SCH ×2 (07:49→20:37)
[2021-06-06] MEDS: METOPROLOL TARTRATE 50 MG TAB PO SCH ×3 (07:49→20:37)
[2021-06-06] MEDS: TAMSULOSIN 0.4 MG CAP.ER.24H PO SCH (07:49)
[2021-06-06 08:56] LABS: Basophils % (A) 1 %; Eosinophils # (A) 0.4 k/uL (0-0.7); Eosinophils % (A) 7 %; HCT 41.6 % (39.0-53.0); HGB 13.7 gm/dL (13.0-17.5); Lymphocytes # (A) 0.8 k/uL (1.0-4.8); Lymphocytes % (A) 15 %; MCH 30.4 pg (25.0-35.0); MCV 92.2 fL (80.0-100.0); Mean Platelet Volume 8.5; Monocytes # (A) 0.5 k/uL (0-1.0); Monocytes % (A) 10 %; Neutrophils # (A) 3.7 k/uL (1.3-7.7); Neutrophils % (A) 66 %; Platelet Count 109 k/uL (150-450); RBC 4.51 m/uL (4.30-5.90); RDW 14.7 % (11.5-15.5); WBC 5.6 k/uL (3.8-10.6)
[2021-06-06 09:08] LABS: INR 1.3 (<1.2); Prothrombin Time 13.7 sec (9.0-12.0)
[2021-06-06] MEDS: SYMBICORT 80-4.5 MCG INHALER INHALATION SCH ×2 (09:09→20:15)
[2021-06-06 09:25] LABS: African American GFR (CKD) >90 (>60 ml/min/1.73 sqM); Anion Gap 4 mmol/L; Blood Urea Nitrogen 11 mg/dL (9-20); Carbon Dioxide 30 mmol/L (22-30); Chloride 103 mmol/L (98-107); Glucose 110 mg/dL (74-99); Non-African American GFR(CKD) 85 (>60 ml/min/1.73 sqM); Potassium 3.2 mmol/L (3.5-5.1); Sodium 137 mmol/L (137-145)
[2021-06-06] MEDS ORDERED: POTASSIUM CHLORIDE ER 20 MEQ TAB.ER PO STA (11:39)
[2021-06-06] MEDS: FOLIC ACID 1 MG TAB PO SCH (12:30)
[2021-06-06] MEDS: FLUCONAZOLE IN NACL,ISO-OSM 200 MG in SALINE 1 100ML.BAG IVPB SCH (12:30)
[2021-06-06] MEDS: MULTIVITAMINS, THERA 1 EACH TAB PO SCH (12:31)
[2021-06-06] MEDS: THIAMINE 100 MG TAB PO SCH (12:31)
--- NOTE | 2021-06-06 15:42 | P.PN ---
Subjective Progress Note Date: 06/06/21 This is an 89-year-old male who was recently admitted with change in mental status and possibility of sepsis and is being closely monitored. Patient has had some improvement in confusion and mentation. Son at the bedside states he is not as his baseline but is improving and currently being fed by the son. Patient continues to have some difficulties with thin liquids and recommend continue thickened liquids and speech therapy to evaluate closely. Patient was on lactulose scheduled for elevated ammonia and ammonia is improved and did not receive lactulose yesterday. Patient continues with indwelling [place] catheter and recommend continue. Cardiology following closely and has adjusted amiodaro ne oral to 200 mg twice daily with close monitoring. 06/06/2021 Patient is seen and evaluated in follow-up this morning and continues to be closely monitored. Patient continues with loose stool and is receiving lactulose and will add C. diff. Son at the bedside continues to be concerned with the use of lactulose with multiple episodes of loose stools and requesting to hold lactulose to see if his ammonia level continues to be normal or will need daily lactulose. Discussed in detail about the importance of continuing lactulose and discussed with GI about the possibility of occult subclinical liver disease and GI recommendations are to continue with lactulose and is agreeable to having at least 1 dose every other day and patient needs to maintain 2 bowel movements daily. Potassium 3.2 and will replace per protocol repeat labs. Indwelling [place] catheter has been removed and patient is voiding an incontinent with urine and stool. Patient continues to be extremely weak and will require ECF once stabilized and discharged. Labs: White blood count is 5.6, hemoglobin is 13.7, platelets are 109, INR is 1.3, sodium is 137, potassium is 3.2, creatinine is 0.67, calcium is 9.0, ammonia is 21, C. diff negative Review of systems: Constitutional: No reports of fatigue, fever, or chills Cardiovascular: No reports of chest pain or palpitations Respiratory: No reports of shortness of breath or cough GI: No reports of nausea, vomiting, reports multiple episodes of loose stools : No reports of dysuria or retention Neurovascular: reports of generalized weakness All medications have been reviewed Active Medications Acetaminophen (Acetaminophen Tab 325 Mg Tab) 650 mg PO Q6HR PRN PRN Reason: Mild Pain or Fever > 100.5 Last Admin: 06/05/21 20:45 Dose: 650 mg Documented by: Amiodarone HCl (Amiodarone 200 Mg Tab) 200 mg PO BID [facility] Last Admin: 06/06/21 07:49 Dose: 200 mg Documented by: Apixaban (Apixaban 5 Mg Tab) 5 mg PO BID [facility]; Protocol Last Admin: 06/06/21 07:49 Dose: 5 mg Documented by: Budesonide/Formoterol Fumarate (Symbicort 80-4.5 Mcg Inhaler) 2 puff INHALATION RT-BID [facility] Last Admin: 06/06/21 09:09 Dose: 2 puff Documented by: Docusate Sodium (Docusate 100 Mg Cap) 100 mg PO BID PRN PRN Reason: Constipation Folic Acid (Folic Acid 1 Mg Tab) 1 mg PO DAILY@1200 [facility] Last Admin: 06/06/21 12:30 Dose: 1 mg Documented by: Ceftriaxone Sodium 1 gm/ (Sodium Chloride) 50 mls @ 100 mls/hr IVPB Q24HR [facility] Last Admin: 06/06/21 07:48 Dose: 100 mls/hr Documented by: Fluconazole/Sodium Chloride (200 mg/ IV Solution) 100 mls @ 100 mls/hr IVPB DAILY [facility] Last Admin: 06/06/21 12:30 Dose: 100 mls/hr Documented by: Lactulose (Lactulose 20 Gm/30 Ml Cup) 30 gm PO QID [facility] Last Admin: 06/06/21 11:04 Dose: Not Given Documented by: Metoprolol Tartrate (Metoprolol Tartrate 50 Mg Tab) 50 mg PO TID [facility] Last Admin: 06/06/21 07:49 Dose: 50 mg Documented by: Multivitamins (Multivitamins, Thera 1 Each Tab) 1 each PO DAILY@1200 [facility] Last Admin: 06/06/21 12:31 Dose: 1 each Documented by: Naloxone HCl (Naloxone 0.4 Mg/Ml 1 Ml Vial) 0.2 mg IV Q2M PRN PRN Reason: Opioid Reversal Pantoprazole Sodium (Pantoprazole 40 Mg Tablet) 40 mg PO AC-BRKFST [facility] Last Admin: 06/06/21 07:49 Dose: 40 mg Documented by: Tamsulosin HCl (Tamsulosin 0.4 Mg Cap.Er.24h) 0.4 mg PO -BRKFST [facility] Last Admin: 06/06/21 07:49 Dose: 0.4 mg Documented by: Thiamine HCl (Thiamine 100 Mg Tab) 100 mg PO DAILY@1200 [facility] Last Admin: 06/06/21 12:31 Dose: 100 mg Documented by: Physical exam: Gen: This is a 89-year-old male awake, alert and oriented 2-3, thin built. Temp is 98.4F, pulse is 92, respirations are 20, blood pressure 137/53, oxygen saturation is 92-99% on room air. HEENT: Head is atraumatic, normocephalic. Pupils equal, round. Sclerae is anicteric. NECK: Supple. No JVD. No lymphadenopathy. No thyromegaly. LUNGS: Manage breath sounds bilaterally with no wheezing and a few scattered rhonchi noted. No intercostal retractions. HEART: S1, S2 are muffled ABDOMEN: Soft. Bowel sounds are present. No masses. No tenderness. EXTREMITIES: No pedal edema. No calf tenderness. NEUROLOGICAL: Patient is awake, alert and oriented x3. Diffusely weak. Assessment: Possible acute urinary tract infection with sepsis, present on admission Urine cultures growing Dory albicans Possible occult liver disease Hypokalemia Possible metabolic acidosis secondary to hepatic encephalopathy Elevated ammonia Atrial fibrillation with fast ventricular rate Hypertension Hyperlipidemia Chronic obstructive pulmonary disease benign prostatic hypertrophy Mild thrombocytopenia Elevated INR No code, no CPR, no vent Plan: Recommend to continue with current medications and current management. Cardiology following closely and have adjusted to oral amiodarone 200 mg twice daily and continue with metoprolol. Urine cultures showing Dory albicans and will continue with Diflucan. Patient continues on scheduled lactulose for elevated ammonia levels and ammonia is 21 today and per nursing patient has received his morning dose of lactulose and continues with loose stools and family requesting to hold lactulose to monitor and see if ammonia levels worsen as they are extremely concerned with the multiple episodes of bowel movements and inability to control and would not be Ulticare for him in the home. GI evaluated the patient recommending continuing lactulose at least 1 dose daily or 1 dose every other day and patient must continue with at least 2 bowel movements daily. Patient's mentation has improved and son at the bedside. Due to multiple Medical issues, prognosis is guarded. Further recommendations to follow based on the clinical course of the patient. PT/OT following the patient and social work following for possible ECF placement once stabilized and discharged. Potassium low at 3.2 and will replace and Will repeat labs and continue to monitor closely. Possible discharge in 24-48 hours Objective - Vital Signs Vital signs: Vital Signs Temp 98.4 F 06/06/21 05:00 Pulse 74 06/06/21 07:53 Resp 20 06/06/21 05:00 BP 144/85 06/06/21 07:53 Pulse Ox 92 L 06/06/21 05:00 Intake & Output 06/05/21 06/06/21 06/06/21 18:59 06:59 18:59 Intake Total 236 100 Output Total 375 Balance -139 100 Intake: Oral 236 100 Output: Urine 375 Other: Voiding Method Indwelling Catheter Diaper Incontinent # Voids 3 # Bowel Movements 2 3 - Labs CBC & Chem 7: 06/06/21 08:41 06/06/21 08:41 Labs: Microbiology - Last 24 Hours (Table) 05/30/21 16:18 Blood Culture - Final Blood No Growth after 144 hours
--- NOTE | 2021-06-06 18:52 | CONS ---
CONSULTATION DATE OF DISCHARGE: 06/06/2021 REASON FOR CONSULTATION: Hyperammonemia. HISTORY OF PRESENT ILLNESS: The patient is an 89-year-old pleasant white male who was admitted to the hospital about a week ago when he presented with altered mental status and urinary tract infection. He was started on IV antibiotics and symptoms gradually improved, but 3 days following the hospitalization, he started developing altered mental status and hence he had labs done that showed elevated ammonia at 220. He was also noted to have mild abnormal LFTs with bilirubin up to 1.3 and AST and ALT slightly elevated. INR was 1.4. We are consulted in regards to his hyperammonemia. The patient has no history of chronic liver disease. Most of the history was obtained from the patient's son who was at the bedside. The patient has history of overweight in the past, but no history of diabetes mellitus or hyperlipidemia. During the course of hospitalization, he continued to remain on broad-spectrum antibiotics and he was also started on oral lactulose 30 mL three times daily and was having about 4 or 5 bowel movements daily. His ammonia level gradually improved and it is down to 22 today. The patient is very alert and oriented currently. No history of jaundice or hepatitis in the past. No history of chronic liver disease in the past. PAST MEDICAL HISTORY: Significant for hypertension, hyperlipidemia, gastroesophageal reflux disease, CVA in the past, atrial fibrillation and recurrent urinary tract infections. MEDICATIONS: Medications at home include omeprazole, Toprol, Advair, Colace, Eliquis, Tylenol, Zofran, Carafate. ALLERGIES: BACTRIM, MEROPENEM, CODEINE, LIPITOR AND PREDNISONE. SOCIAL HISTORY: No smoking. No alcohol use. FAMILY HISTORY: Unremarkable. REVIEW OF SYSTEMS: CARDIOPULMONARY: He denies any chest pain or shortness of breath. GENITOURINARY: No dysuria or hematuria. MUSCULOSKELETAL: Unremarkable. SKIN: Unremarkable. ENDOCRINE: Unremarkable. PSYCHIATRY: Unremarkable. NEUROLOGY: Mild confusion. ENT/VISION: Unremarkable. CONSTITUTIONAL: No recent weight loss. No fever, chills, night sweats. PHYSICAL EXAMINATION: He appears comfortable. No apparent distress. Vital signs are stable. Blood pressure is 106/86, pulse rate 82 and afebrile. HEENT examination unremarkable. Conjunctivae are pink, sclerae anicteric. Oral cavity no lesions. Neck: No JVD or lymph node enlargement. Chest clear to auscultation. Heart: Regular rate and rhythm. Abdomen is soft. Bowel sounds are positive. No organomegaly. Extremities: No pedal edema. Neuro: He is alert and oriented x3. No focal deficits. LABS: Labs from today show WBC 5.6, hemoglobin 13.7. Platelets are 109. INR is 1.3. Albumin is slightly low at 3.6. T-bilirubin is 1.5. AST and ALT today are 23 and 14, respectively. Ammonia level is 21. Albumin is 2.6. IMPRESSION: 1. Altered mental status secondary to hepatic encephalopathy. Ammonia level was 220. Patient has mild elevation of serum transaminases, mild thrombocytopenia and slightly elevated INR at 1.3. Also has hypoalbuminemia, and all these are indirect for possible occult chronic liver disease with possible cirrhosis of the liver. Recent CT scan of the abdomen done two days showed normal-appearing liver, but possibility of advanced liver disease cannot be excluded on imaging studies. 2. Urinary tract infection, on broad-spectrum antibiotics, and clinically patient doing better. RECOMMENDATIONS: I had a lengthy discussion with the patient as well as his son who was at the bedside. At this time I believe that elevated ammonia is causing hepatic encephalopathy, most likely as a result of chronic underlying liver disease, though it is not obvious on imaging studies or on labs. But the presence of thrombocytopenia, hypoalbuminemia, slightly elevated INR and mild elevation of serum transaminases points to this condition. I recommended that he continue on lactulose at least daily and titrate so that he has 3 to 4 bowel movements daily to prevent future episodes. Because of his advanced age, I do not plan on doing any further aggressive workup to evaluate for chronic liver disease. We will follow with you closely. Thank you for this consultation. MMODL / IJN: [id number] /
[2021-06-07 08:58] LABS: INR 1.4 (<1.2); Prothrombin Time 13.8 sec (9.0-12.0)
[2021-06-07] MEDS: FOLIC ACID 1 MG TAB PO SCH (09:00)
[2021-06-07] MEDS: AMIODARONE 200 MG TAB PO SCH (09:00)
[2021-06-07] MEDS: PANTOPRAZOLE 40 MG TABLET PO SCH (09:01)
[2021-06-07] MEDS: APIXABAN 5 MG TAB PO SCH (09:01)
[2021-06-07] MEDS: MULTIVITAMINS, THERA 1 EACH TAB PO SCH (09:01)
[2021-06-07] MEDS: METOPROLOL TARTRATE 50 MG TAB PO SCH (09:01)
[2021-06-07] MEDS: TAMSULOSIN 0.4 MG CAP.ER.24H PO SCH (09:01)
[2021-06-07] MEDS: LACTULOSE 20 GM/30 ML CUP PO SCH (09:02)
[2021-06-07] MEDS: THIAMINE 100 MG TAB PO SCH (09:11)
[2021-06-07] MEDS: FLUCONAZOLE IN NACL,ISO-OSM 200 MG in SALINE 1 100ML.BAG IVPB SCH ×2 (09:12→11:34)
[2021-06-07] MEDS: SYMBICORT 80-4.5 MCG INHALER INHALATION SCH (09:12)
[2021-06-07 09:17] LABS: African American GFR (CKD) >90 (>60 ml/min/1.73 sqM); Anion Gap 4 mmol/L; Blood Urea Nitrogen 12 mg/dL (9-20); Calcium 8.9 mg/dL (8.4-10.2); Carbon Dioxide 26 mmol/L (22-30); Chloride 105 mmol/L (98-107); Glucose 94 mg/dL (74-99); Non-African American GFR(CKD) 84 (>60 ml/min/1.73 sqM); Potassium 3.9 mmol/L (3.5-5.1); Sodium 135 mmol/L (137-145)
--- NOTE | 2021-06-07 09:58 | P.PN ---
Subjective Progress Note Date: 06/06/21 Patient was seen for a follow-up. Patient is laying comfortably in the bed. Patient denies headache. Denies any focal symptoms. Objective - Vital Signs Vital signs: Vital Signs Temp 97.6 F 06/07/21 05:00 Pulse 69 06/07/21 05:00 Resp 16 06/07/21 05:00 BP 124/84 06/07/21 05:00 Pulse Ox 96 06/07/21 05:00 Intake & Output 06/06/21 06/07/21 06/07/21 18:59 06:59 18:59 Intake Total 150 590 Balance 150 590 Intake: Intake, IV Titration 150 Amount Fluconazole in NaCl,Iso- 100 Osm 200 mg In Saline 1 100ml.bag @ 100 mls/hr IVPB DAILY [facility] Rx#: [id number] cefTRIAXone 1 gm In 50 Sodium Chloride 0.9% 50 ml @ 100 mls/hr IVPB Q24HR [facility] Rx#:[id number] Oral 590 Other: Voiding Method Diaper Diaper Incontinent Incontinent # Voids 3 - Exam Patient's mental status is normal. He knows it is [facility]. He thinks it is May and the year is 2000. He knows name of the current president. Speech and language functions appears normal. Visual fontenot are full, face is symmetric. Tongue protrudes to the midline. Muscle strength is normal except for right shoulder which is weak from rotator cuff. Sensations are equal. No ataxia. - Labs CBC & Chem 7: 06/06/21 08:41 06/07/21 08:15 Labs: Abnormal Lab Results - Last 24 Hours (Table) 06/07/21 06/07/21 06/07/21 Range/Units 08:15 08:15 08:15 PT 13.8 H (9.0-12.0) sec INR 1.4 H (<1.2) Sodium 135 L (137-145) mmol/L Ammonia 59 H (<30) umol/L Assessment and Plan Assessment: * Altered mental status, likely due to hepatic encephalopathy. Patient's ammonia level was very elevated 202 at the time of acute encephalopathy. Now the ammonia has come down to 21. Patient's mentation is completely normal. Rule out cirrhosis. * Paroxysmal atrial fibrillation, currently on anticoagulation with Eliquis. Examination is nonfocal, no evidence of CVA. * History of pacemaker. * Dory albicans UTI. On fluconazole IV. Plan: * Continue Eliquis 5 mg twice a day for stroke prevention. No need for adding aspirin at this time, as the altered mental status was clearly due to hepatic encephalopathy. * CT of abdomen and pelvis revealed chronic biliary dilation. No interval change. Small bilateral pleural effusion with adjacent compressive atelectasis.. GI input appreciated. Patient probably has chronic liver disease and possible cirrhosis. Continue lactulose. * CTA of head and neck showed no significant stenosis. * 2-D echo from 04/14/2021 shows normal left-ventricular size. Normal left ventricular wall thickness. EF is between 65-70%. Trace MR. * No other neurological workup indicated. * Neurology will sign off. Please reconsult us if any concerns.
--- NOTE | 2021-06-07 11:39 | P.DS ---
Providers Date of admission: 05/31/21 08:35 Expected date of discharge: 06/07/21 Attending physician: Bebeto Stevens Consults: 05/30/21 13:33 Consult Physician Routine Consulting Provider: Maty Walker Consult Reason/Comments: afib rvr Do you want consulting provider notified?: Yes 06/03/21 13:09 Consult Physician Stat Consulting Provider: Arie Bravo Consult Reason/Comments: rule out CVA; Code stroke this am Do you want consulting provider notified?: Yes Primary care physician: Francie Quiñones Hospital Course: Final diagnosis Possible acute urinary tract infection with sepsis, present on admission Urine cultures growing Dory albicans 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 Patient will follow-up with Dr. Giang in the outpatient setting upon discharge. Patient is to follow-up with Gi along with cardiology in the outpatient setting. Patient will continue on oral Ceftin 500 mg twice daily the next 3 days along with oral Diflucan 100 mg daily for the next 5 days and then may discontinue. Total time taken is greater than 35 minutes. Hospital course This is an 89-year-old male who was recently admitted with change in mental status and possibility of sepsis and is being closely monitored. Patient has had some improvement in confusion and mentation. Son at the bedside states he is not as his baseline but is improving and currently being fed by the son. Patient continues to have some difficulties with thin liquids and recommend continue thickened liquids and speech therapy to evaluate closely. Patient was on lactulose scheduled for elevated ammonia and ammonia is improved and did not receive lactulose yesterday. Patient continues with indwelling [place] catheter and recommend continue. Cardiology following closely and has adjusted amiodarone oral to 200 mg twice daily with close monitoring. 06/06/2021 Patient is seen and evaluated in follow-up this morning and continues to be closely monitored. Patient continues with loose stool and is receiving lactulose and will add C. diff. Son at the bedside continues to be concerned with the use of lactulose with multiple episodes of loose stools and requesting to hold lactulose to see if his ammonia level continues to be normal or will need daily lactulose. Discussed in detail about the importance of continuing lactulose and discussed with GI about the possibility of occult subclinical liver disease and GI recommendations are to continue with lactulose and is agreeable to having at least 1 dose every other day and patient needs to maintain 2 bowel movements daily. Potassium 3.2 and will replace per protocol repeat labs. Indwelling [place] catheter has been removed and patient is voiding an incontinent with urine and stool. Patient continues to be extremely weak and will require ECF once stabilized and discharged. 06/07/2021 Patient is seen and evaluated and follow-up today and continues to have improved mentation and is alert and oriented 3. Patient to continue with lactulose at least once daily if not 2-3 times daily as scheduled for bowel movements of 2-3 daily per GI recommendations. Patient to continue on oral Ceftin 500 mg twice daily for the next 3 days along with oral Diflucan 100 mg daily for the next 5 days to complete the course. Recommend continue with regular diet and maintaining aspiration precautions of head of the bed elevated 30-45 and supervision with meals and also nectar thickened liquids. Patient has a chronic history of swallowing dysfunction and does well with supervision with meals and assistance with regular food although has difficulty with thin liquids recommending nectar thickened. Recommend close outpatient follow-up of repeat labs in 2-3 days along with weekly ammonia levels. Patient to follow-up with GI and cardiology in the outpatient setting. Currently no reports of chest pain, shortness of breath, or palpitations. Patient is afebrile. No reports of nausea or vomiting and patient is tolerating diet. Patient will be going to [facility] today. Guarded prognosis. On exam vital signs are stable. Cardio S1, S2 are muffled. Respiratory system shows diminished breath sounds at the bases with no wheezing or rhonchi noted. Abdomen is soft and nontender. Nervous system shows diffuse weakness. Please refer to medication reconciliation sheet for a list of medications. Patient Condition at Discharge: Fair Plan - Discharge Summary New Discharge Prescriptions: New Cefuroxime Axetil [Ceftin] 500 mg PO BID 3 Days #6 tab Lactulose [Cephulac] 30 gm PO TID ml Folic Acid 1 mg PO DAILY@1200 tab Amiodarone [Cordarone] 200 mg PO BID 30 Days #60 tab Metoprolol Tartrate [Lopressor] 50 mg PO TID 30 Days #90 tab Fluconazole [Diflucan] 100 mg PO DAILY 5 Days #5 tab Tamsulosin [Flomax] 0.4 mg PO PC-BRKFST capsule Multivitamins, Thera [Multivitamin (formulary)] 1 each PO DAILY@1200 tab Pantoprazole [Protonix] 40 mg PO AC-BRKFST tab Thiamine [Vitamin B-1] 100 mg PO DAILY@1200 tab Continue Fluticasone/Salmeterol [Advair 250-50 Diskus] 1 puff INHALATION RT-BID Apixaban [Eliquis] 5 mg PO BID Docusate [Colace] 100 mg PO BID PRN 3 Days #6 cap PRN Reason: Constipation Acetic Acid/Hydrocortisone [Vosol Hc Otic] 4 drops BOTH EARS TID Acetaminophen Tab [Tylenol] 650 mg PO Q6H PRN PRN Reason: Pain Discontinued Metoprolol Succinate [Toprol XL] 25 mg PO HS Amoxicillin 500 mg PO Q8H Discharge Medication List Fluticasone/Salmeterol [Advair 250-50 Diskus] 1 puff INHALATION RT-BID 02/28/14 [History] Apixaban [Eliquis] 5 mg PO BID 05/20/17 [History] Acetaminophen Tab [Tylenol] 650 mg PO Q6H PRN 03/04/21 [History] Docusate [Colace] 100 mg PO BID PRN 3 Days #6 cap 03/16/21 [Rx] Acetic Acid/Hydrocortisone [Vosol Hc Otic] 4 drops BOTH EARS TID 04/13/21 [History] Amiodarone [Cordarone] 200 mg PO BID 30 Days #60 tab 06/05/21 [Rx] Metoprolol Tartrate [Lopressor] 50 mg PO TID 30 Days #90 tab 06/05/21 [Rx] Cefuroxime Axetil [Ceftin] 500 mg PO BID 3 Days #6 tab 06/07/21 [Rx] Fluconazole [Diflucan] 100 mg PO DAILY 5 Days #5 tab 06/07/21 [Rx] Folic Acid 1 mg PO DAILY@1200 tab 06/07/21 [Rx] Lactulose [Cephulac] 30 gm PO TID ml 06/07/21 [Rx] Multivitamins, Thera [Multivitamin (formulary)] 1 each PO DAILY@1200 tab 06/07/21 [Rx] Pantoprazole [Protonix] 40 mg PO AC-BRKFST tab 06/07/21 [Rx] Tamsulosin [Flomax] 0.4 mg PO PC-BRKFST capsule 06/07/21 [Rx] Thiamine [Vitamin B-1] 100 mg PO DAILY@1200 tab 06/07/21 [Rx] Follow up Appointment(s)/Referral(s): Kirill Giang MD [REFERRING] - 1 Week Duy Matias MD [STAFF PHYSICIAN] - 1 Week Ambulatory/Diagnostic Orders: Complete Blood Count w/diff [LAB.AMB] Time Frame: 1 Week, Location: None Selected Activity/Diet/Wound Care/Special Instructions: Patient is going to [facility] Activity as tolerated Continue with lactulose 30 g 2-3 times daily and must have 2-3 bowel movements daily Continue antibiotics for 3 days and then may discontinue along with oral Diflucan 5 days Continue heart healthy diet and nectar thickened liquids and maintain aspiration precautions of head of the bed elevated 30-45 with one-to-one supervision with meals and assistance Patient to follow-up with GI in the outpatient setting Patient follow-up with cardiology outpatient Recommend repeat labs of CBC, BMP, ammonia weekly Discharge Disposition: TRANSFER TO SNF/ECF
[2021-06-07 13:00] VITALS: BP 117/77; PULSE 83; RESP 18; TEMP 97.5
--- NOTE | 2021-06-07 15:15 | PN ---
PROGRESS NOTE DATE OF DISCHARGE: 06/07/2021 Patient is an 89-year-old pleasant white male admitted to the hospital with acute UTI and hepatic encephalopathy. He was noted to have ammonia of 220, which gradually improved after starting him on oral lactulose. Patient with no history of chronic liver disease. During this hospitalization he was noted to have mild elevation of bilirubin and mild thrombocytopenia with slight elevation of AST, all suspicious for underlying chronic liver disease. Patient is doing better. He has been taking lactulose 30 mL three times daily and was having about 4 or 5 loose watery bowel movements and is quite concerned about the diarrhea. He is being discharged to a intermediate today for rehab. He denies any new symptoms. PHYSICAL EXAMINATION: He appears comfortable. No apparent distress. Vital signs are stable. Blood pressure is 130/86, pulse rate 82 per minute and afebrile. HEENT examination unremarkable. Conjunctivae are pink, sclerae anicteric. Oral cavity no lesions. Neck no JVD or lymph node enlargement. Chest was clear to auscultation. Heart: Regular rate and rhythm. Abdomen was soft. Bowel sounds are positive. No organomegaly. Extremities: No edema. Neuro: He is alert and oriented x3. LABS: Labs from today show ammonia 59. Rest of the labs are within normal limits. INR is 1.4. IMPRESSION: 1. Elevated ammonia level with altered mental status, possible hepatic encephalopathy, and underlying chronic liver disease cannot be excluded. He has responded very well with oral lactulose and ammonia has normalized and his mental status has significantly improved. 2. Recurrent urinary tract infection, on broad-spectrum antibiotics, doing well. 3. Mild thrombocytopenia. 4. Atrial fibrillation, on Eliquis. RECOMMENDATIONS: I had a lengthy discussion with the patient's family who was at the bedside. At this time I suggested that they continue with lactulose at least 30 mL a day and try to adjust it so that he has 2 or 3 bowel movements daily. They are concerned about the patient having diarrhea, and I suggested that if he has diarrhea, the can be changed to every other day. Monitor ammonia level if he has any altered mental status, and he can follow up in the office in 3-4 weeks for continued monitoring. Thank you for this consultation. MMODL / IJN: [id number] /
[2021-06-07] MEDS ORDERED: LACTULOSE 20 GM/30 ML CUP PO SCH (16:00)
== END 2021-06-07 13:58 | DRG 871 ==
LOC: EC 08:35 → 1SOBS 11:17 → 6NMEDSUR 16:15 → 3SCARD 05-31 04:26 → OBSVTOIN 05-31 08:35 → 5NMEDONC 06-05 15:15
PROVIDERS: ADMIT Hospitalist; ATTEND Hospitalist
DX: B37.7 Candidal sepsis (principal); G93.41 Metabolic encephalopathy; E44.1 Mild protein-calorie malnutrition; N39.0 Urinary tract infection, site not specified; E78.5 Hyperlipidemia, unspecified; F03.90 Unspecified dementia, unspecified severity, without behavioral disturbance, psychotic disturbance, mood disturbance, and anxiety; I10 Essential (primary) hypertension; I48.0 Paroxysmal atrial fibrillation; I49.5 Sick sinus syndrome; J44.9 Chronic obstructive pulmonary disease, unspecified; N40.0 Benign prostatic hyperplasia without lower urinary tract symptoms; Z66 Do not resuscitate; K21.9 Gastro-esophageal reflux disease without esophagitis; E87.6 Hypokalemia; B37.0 Candidal stomatitis; K72.90 Hepatic failure, unspecified without coma; M54.81 Occipital neuralgia; D69.6 Thrombocytopenia, unspecified; Z20.822 Contact with and (suspected) exposure to COVID-19; Z90.49 Acquired absence of other specified parts of digestive tract; Z68.20 Body mass index [BMI] 20.0-20.9, adult; Z95.0 Presence of cardiac pacemaker; Z90.3 Acquired absence of stomach [part of]; Z98.42 Cataract extraction status, left eye; Z98.41 Cataract extraction status, right eye; Z85.828 Personal history of other malignant neoplasm of skin; Z87.01 Personal history of pneumonia (recurrent); Z87.440 Personal history of urinary (tract) infections; Z86.73 Personal history of transient ischemic attack (TIA), and cerebral infarction without residual deficits; Z87.891 Personal history of nicotine dependence; Z91.81 History of falling; Z87.11 Personal history of peptic ulcer disease; Z79.01 Long term (current) use of anticoagulants; Z79.899 Other long term (current) drug therapy; Z83.3 Family history of diabetes mellitus
CPT/HCPCS: 36415; 70450; 70496; 70498; 71045; 74176; 80048; 80053; 81001; 82140; 83735; 84145; 84443; 84484; 85025; 85610; 85730; 87040; 87086; 87324; 87635; 93005; 94640; 96360; 99291

== ENCOUNTER 2021-06-15 14:32 | Inpatient (IN) | payer MEDICARE ==
[2021-06-15 14:48] LABS: Glucose,Whole Blood 117 mg/dL (75-99)
--- NOTE | 2021-06-15 14:56 | CT ---
EXAMINATION TYPE: CT brain wo con for TPA DATE OF EXAM: 06/15/2021 COMPARISON: 06/03/2021 HISTORY: 89-year-old male with left-sided weakness, acute neurologic deficit, stroke suspected. TECHNIQUE: Examination was done in axial plane without intravenous contrast. Coronal and sagittal r econstructions performed. CT DLP: 1069.8 mGycm Automated exposure control for dose reduction was used. FINDINGS: There is no evidence of acute intracranial hemorrhage, acute ischemic changes, mass, mass-effect, or extra-axial fluid collection. There is no effacement of cerebral sulci or basal subarachnoid cister ns. There is no hydrocephalus. There is no midline shift. Trinh-white matter distinction is preserv ed. Mild to moderate mucosal thickening ethmoid air cells. Frothy fluid within the left sphenoid sinus. M astoid air cells are pneumatized. Orbits and globes are intact. Mild generalized supratentorial volume loss. Moderate to severe confluent white matter hypodensities in both cerebral hemispheres. Benign basal ganglionic calcifications. Assess for calcifications in th e carotid siphons. IMPRESSION: 1. No acute intracranial abnormality seen. If concern for subtle acute ischemia, follow-up MRI. 2. Mild generalized atrophy and moderate to severe confluent burden of chronic small vessel ischemic disease, unchanged from prior. 3. Moderate chronic ethmoid sinus disease. Possible acute left sphenoid sinusitis. Clinically correla te.
[2021-06-15] MEDS ORDERED: ONDANSETRON 4 MG/2 ML VIAL IVP STA (15:13)
[2021-06-15 15:15] LABS: Basophils % (A) 1 %; Eosinophils # (A) 0.1 k/uL (0-0.7); Eosinophils % (A) 4 %; HCT 37.6 % (39.0-53.0); HGB 12.5 gm/dL (13.0-17.5); Lymphocytes % (A) 24 %; MCH 29.9 pg (25.0-35.0); MCHC 33.1 g/dL (31.0-37.0); MCV 90.3 fL (80.0-100.0); Mean Platelet Volume 7.7; Monocytes # (A) 0.4 k/uL (0-1.0); Monocytes % (A) 9 %; Neutrophils # (A) 2.4 k/uL (1.3-7.7); Neutrophils % (A) 59 %; Platelet Count 116 k/uL (150-450); RBC 4.17 m/uL (4.30-5.90); RDW 15.1 % (11.5-15.5)
--- NOTE | 2021-06-15 15:26 | CT ---
EXAMINATION TYPE: CT angio head neck DATE OF EXAM: 06/15/2021 COMPARISON: CT brain same day HISTORY: 89-year-old male left-sided weakness, Stroke TECHNIQUE: Contiguous axial scanning of the head and neck performed with IV Contrast, patient injecte d with 65 mL of Isovue 370. Coronal/sagittal MIP reconstructions performed. 3-D reconstructions on a dedicated workstation. CT DLP: 363.6 mGycm Automated exposure control for dose reduction was used. FINDINGS: NECK: Ectatic upper descending thoracic aorta 3.2 cm. Bovine configuration to the aortic arch. Mild atheros clerotic calcifications. Numerous small mediastinal lymph nodes measuring up to 8 mm. Questionable mild circumferential wall t hickening visualized mid thoracic esophagus, series 404 image 7 and 8. The left vertebral artery is dominant. Mild atherosclerotic calcifications of the origin of the right vertebral artery. Otherwise, both vertebral arteries are patent throughout their course. The right common carotid artery is patent. Moderate atherosclerotic changes at the right carotid bifurcation mild, less than 40% stenosis at the right carotid bulb by NASCET criteria. Retropharyngeal course of the right ICA. The left common carotid artery is patent. Moderate atherosclerotic changes of the left carotid bifurcation with mild, less than 40% stenosis at the level of the left carotid bulb. Tortuous upper left ICA. HEAD: Dominant left vertebral artery. Focal moderate stenosis proximal V4 segment right vertebral artery. Otherwise, the vertebral and basilar arteries are patent. Remainder of the posterior circulation is p atent though the P1 segment left posterior cerebral artery is hypoplastic with persistent origi n left FORK TRUCK OPERATOR. There is a appearance of a tiny saccular aneurysm measuring 2 mm at the terminus of the basilar arter y, thin cut axial images 155 and 156. Mild atherosclerotic calcifications of the bilateral carotid siphons. No significant stenosis of the internal carotid arteries. Anterior circulation is patent. IMPRESSION: NECK: 1. MODERATE ATHEROSCLEROTIC CHANGE OF THE BILATERAL CAROTID BIFURCATIONS WITH MILD, LESS THAN 40% PRO XIMAL ICA STENOSIS ON EITHER SIDE. 2. DOMINANT LEFT VERTEBRAL ARTERY. HEAD: 3. FOCAL MODERATE STENOSIS PROXIMAL V4 SEGMENT RIGHT VERTEBRAL ARTERY. OTHERWISE, NO LARGE VESSEL. IN TRACRANIAL ARTERIAL OCCLUSION OR SIGNIFICANT STENOSIS. 4. 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 SIX-MONTH FOLLOW-UP CT ANGIOGRAPHY CAN REASSESS.
[2021-06-15 15:29] LABS: Calcium 8.8 mg/dL (8.4-10.2); Total Bilirubin 1.3 mg/dL (0.2-1.3); Total Protein 5.7 g/dL (6.3-8.2)
--- NOTE | 2021-06-15 15:30 | XR ---
EXAMINATION TYPE: XR chest 2V DATE OF EXAM: 06/15/2021 COMPARISON: Chest x-ray 12 days ago HISTORY: Altered mental status and weakness. TECHNIQUE: Frontal and lateral views of the chest are obtained. FINDINGS: Mild cardiomegaly with dual lead pacemaker and atherosclerotic thoracic aorta redemonstrat ed. Chronic parenchymal changes with small to tiny bilateral pleural effusions and patchy bibasilar o pacities favoring atelectatic change. Mild interstitial edema. Osseous structures are demineralized. IMPRESSION: Cardiomegaly with mild interstitial edema and small to tiny bilateral pleural effusion. Correlate for CHF exacerbation.
[2021-06-15 15:31] LABS: INR 1.3 (<1.2); Partial Thromboplastin Time 25.8 sec (22.0-30.0); Prothrombin Time 13.7 sec (9.0-12.0)
[2021-06-15] MEDS ORDERED: SODIUM CHLORIDE 0.9% 1,000 ML IV STA (15:54)
[2021-06-15] MEDS ORDERED: ASPIRIN 300 MG SUPP RECTAL STA (15:56)
[2021-06-15] MEDS ORDERED: LACTULOSE 200 GM/300 ML (FROM 1/2 GAL JUG) RECTAL ONE (16:00)
--- NOTE | 2021-06-15 16:56 | ED ---
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 fib on L Eliquis, COPD, CVA/TIA, pneumonia, hyperlipidemia, recent admission for UTI presents emergency Departme nt over concern for altered mental status and strokelike symptoms. Last known well was 8 AM this morning. Patient is normally alert and oriented 4 and able to interact and uses all 4 extremities without issue. Patient has been mute since this time, is not moving his left upper left lower extremity, there is minimal movement of the right upper and right lower extremities. It is progressively gotten worse and he called EMS to the patient evaluated. He was recently worked up for possible stroke and was negative. Patient is unable to provide any further history at this time. - Related Data Home Medications Medication Instructions Recorded Confirmed Apixaban [Eliquis] 5 mg PO BID 05/20/17 06/15/21 Acetaminophen Tab [Tylenol] 650 mg PO Q6H PRN 03/04/21 06/15/21 Amiodarone [Cordarone] 200 mg PO BID@0800,199906/15/21 06/15/21 Fluticasone/Vilanterol [Breo 1 puff PO RT-DAILY 06/15/21 06/15/21 Ellipta 100-25 Mcg Inhaler] Folic Acid 1 mg PO DAILY 06/15/21 06/15/21 Lactulose 30 gm PO TID 06/15/21 06/15/21 Metoprolol Succinate (ER) [Toprol 50 mg PO DAILY 06/15/21 06/15/21 Xl] Multivitamins, Thera [Multivitamin 1 tab PO DAILY 06/15/21 06/15/21 (formulary)] Omeprazole 20 mg PO DAILY 06/15/21 06/15/21 Tamsulosin [Flomax] 0.4 mg PO DAILY 06/15/21 06/15/21 Thiamine [Vitamin B-1] 100 mg PO DAILY 06/15/21 06/15/21 Allergies Allergy/AdvReac Type Severity Reaction Status Date / Time sulfamethoxazole Allergy Unknown Verified 06/15/21 16:40 [From Bactrim] temazepam [From Restoril] Allergy Unknown Verified 06/15/21 16:40 trimethoprim [From Bactrim] Allergy Unknown Verified 06/15/21 16:40 verapamil Allergy Unknown Verified 06/15/21 16:40 codeine AdvReac Intermediate Hallucinati Verified 06/15/21 16:40 ons atorvastatin [From Lipitor] AdvReac Nausea & Verified 06/15/21 16:40 Vomiting prednisone AdvReac agitated Verified 06/15/21 16:40 Review of Systems ROS Statement: Those systems with pertinent positive or pertinent negative responses have been documented in the HPI. Unable to obtain secondary to patient's current clinical process. ROS Other: All systems not noted in ROS Statement are negative. 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 History of Any Multi-Drug Resistant Organisms: None Reported Past Surgical History: Appendectomy, Cardiac Ablation, Cholecystectomy, Heart Catheterization, Orthopedic Surgery, Pacemaker Additional Past Surgical History / Comment(s): 08/30/20 TURP, laparotomy for ulcer repair/partial gastrectomy, hemorrhoidectomy, colonoscopies, EGDs, bilateral cataract removals, skin cancer removed from face, occipital nerve injections. Fall with R HIP Fx with Sx repair on 04/15/21 Past Anesthesia/Blood Transfusion Reactions: No Reported Reaction Type of Cardiac Device: Permanent Pacemaker Device Placement Date:: 2013 Past Psychological History: No Psychological Hx Reported Smoking Status: Former smoker Past Alcohol Use History: None Reported Past Drug Use History: None Reported - Past Family History Father Family Medical History: CVA/TIA Additional Family Medical History / Comment(s): Father had TIAs. He passed at the age of 82 yrs. Mother Family Medical History: Diabetes Mellitus Additional Family Medical History / Comment(s): AT AGE 76. General Exam - General Exam Comments Initial Comments: General: Patient is alert but is unable to speak. He was able to say the word yes but nothing else. He will follow basic commands such as closing eyes and squeezing hand. HEAD: Normal with no signs of head trauma. EYES: PERRLA, EOMI, conjunctiva normal, no discharge. Pupils are 3 mm and equal bilaterally. ENT: Normal oropharynx. RESPIRATORY: Clear breath sounds bilaterally. No wheezes, rales, or rhonchi. C/V: Regular rate and rhythm. S1 and S2 auscultated, no edema, peripheral pulses 2+ and intact throughout ABD: Abd is soft, nontender, nondistended EXT: Normal range of motion, no obvious deformity SKIN: No rashes or lesions observed on exposed skin. NEURO: Alert but not oriented. Neurological exam is difficult to obtain secondary to patient's critical status. NIH is high, at approximately 21 for mutism, no effort on the left upper and left lower extremities, no effort against gravity on the right upper and right lower extremities. Patient is able follow basic commands. He is below his baseline of A&O4 with no neurological deficits. Limitations: no limitations Course Vital Signs 06/15/21 06/15/21 06/15/21 14:35 15:03 15:09 Temperature 97 F L Pulse Rate 51 L 51 L 50 L Respiratory 18 20 18 Rate Blood Pressure 133/66 103/64 103/64 O2 Sat by Pulse 100 100 100 Oximetry 06/15/21 06/15/21 06/15/21 15:12 16:40 17:04 Temperature 98.1 F Pulse Rate 49 L 49 L Respiratory 20 20 Rate Blood Pressure 125/64 131/60 O2 Sat by Pulse 99 99 Oximetry Medical Decision Making - Medical Decision Making Based on the patient's presentation and physical exam, I'm concerned for an acute stroke with his high NIH. Patient also has a history of anticoagulation use. Therefore we will obtain a stroke workup. Code stroke was activated. Patient was taken to CT scanner for imaging. Brain CT was remarkable for no acute intracranial abnormality. There is chronic small vessel disease. There is chronic atrophy. CTA shows atherosclerotic disease. There is focal moderate stenosis of the proximal V4 segment of the right vertebral artery otherwise no large vessel intracranial arterial occlusion or significant stenosis. There is also a suspected tiny 2 mm saccular aneurysm from the distal basilar artery versus and infundibulum at the takeoff of the hypoplastic A1 segment of the left DUST PULLER. Follow-up CT angiogram is recommended. I spoke with the neuro security engineer commissioner public works. Patient is outside the TPA window. There is no significant occlusion to pursue with thrombectomy. Therefore patient will be medically managed here in the department. He did recommend that we obtain other evaluation for altered mental status with this history of hyperammonemia as well as infection. I was in agreement this plan. He'll be administered aspirin rectally. I spoke with on-call neurology Dr. Bravo who was in agreement with this plan. EKG showed no signs of acute ischemia. Chest x-ray shows small bilateral pleural effusions.. The patient's laboratory studies returned and were remarkable for a hyperammonemia 139, indeterminate troponin of 0.04. Urinalysis is remarkable for possible UTI and will be dosed a one-time dose of Rocephin. Hepatic function is within normal limits. Patient will be started on lactulose. I spoke with family members and updated them on the patient's condition. His neurological status remains the same at this time. I believe it is likely secondary to his hyperammonemia. Patient's family was in agreement this plan. I spoke with the admitting team under Dr. Newman who accepted the patient. Patient was admitted in serious condition to a telemetry bed. - Lab Data Result diagrams: 06/15/21 14:58 06/15/21 14:58 Lab Results 06/15/21 06/15/21 06/15/21 Range/Units 14:37 14:58 14:58 WBC 4.0 (3.8-10.6) k/uL RBC 4.17 L (4.30-5.90) m/uL Hgb 12.5 L (13.0-17.5) gm/dL Hct 37.6 L (39.0-53.0) % MCV 90.3 (80.0-100.0) fL MCH 29.9 (25.0-35.0) pg MCHC 33.1 (31.0-37.0) g/dL RDW 15.1 (11.5-15.5) % Plt Count 116 L (150-450) k/uL MPV 7.7 Neutrophils % 59 % Lymphocytes % 24 % Monocytes % 9 % Eosinophils % 4 % Basophils % 1 % Neutrophils # 2.4 (1.3-7.7) k/uL Lymphocytes # 1.0 (1.0-4.8) k/uL Monocytes # 0.4 (0-1.0) k/uL Eosinophils # 0.1 (0-0.7) k/uL Basophils # 0.0 (0-0.2) k/uL PT 13.7 H (9.0-12.0) sec INR 1.3 H (<1.2) APTT 25.8 (22.0-30.0) sec Sodium (137-145) mmol/L Potassium (3.5-5.1) mmol/L Chloride (98-107) mmol/L Carbon Dioxide (22-30) mmol/L Anion Gap mmol/L BUN (9-20) mg/dL Creatinine (0.66-1.25) mg/dL Est GFR (CKD-EPI)AfAm (>60 ml/min/1.73 sqM) Est GFR (CKD-EPI)NonAf (>60 ml/min/1.73 sqM) Glucose (74-99) mg/dL POC Glucose (mg/dL) 117 H (75-99) mg/dL POC Glu Clerk ID Lucio Tee Plasma Lactic Acid Alphonse (0.7-2.0) mmol/L Calcium (8.4-10.2) mg/dL Total Bilirubin (0.2-1.3) mg/dL AST (17-59) U/L ALT (4-49) U/L Alkaline Phosphatase (38-126) U/L Ammonia (<30) umol/L Troponin I (0.000-0.034) ng/mL Total Protein (6.3-8.2) g/dL Albumin (3.5-5.0) g/dL Coronavirus (PCR) (Not Detectd) 06/15/21 06/15/21 06/15/21 Range/Units 14:58 14:58 14:58 WBC (3.8-10.6) k/uL RBC (4.30-5.90) m/uL Hgb (13.0-17.5) gm/dL Hct (39.0-53.0) % MCV (80.0-100.0) fL MCH (25.0-35.0) pg MCHC (31.0-37.0) g/dL RDW (11.5-15.5) % Plt Count (150-450) k/uL MPV Neutrophils % % Lymphocytes % % Monocytes % % Eosinophils % % Basophils % % Neutrophils # (1.3-7.7) k/uL Lymphocytes # (1.0-4.8) k/uL Monocytes # (0-1.0) k/uL Eosinophils # (0-0.7) k/uL Basophils # (0-0.2) k/uL PT (9.0-12.0) sec INR (<1.2) APTT (22.0-30.0) sec Sodium 137 (137-145) mmol/L Potassium 4.0 (3.5-5.1) mmol/L Chloride 104 (98-107) mmol/L Carbon Dioxide 27 (22-30) mmol/L Anion Gap 6 mmol/L BUN 19 (9-20) mg/dL Creatinine 0.96 (0.66-1.25) mg/dL Est GFR (CKD-EPI)AfAm 81 (>60 ml/min/1.73 sqM) Est GFR (CKD-EPI)NonAf 70 (>60 ml/min/1.73 sqM) Glucose 123 H (74-99) mg/dL POC Glucose (mg/dL) (75-99) mg/dL POC Glu Clerk ID Plasma Lactic Acid Alphonse 2.0 (0.7-2.0) mmol/L Calcium 8.8 (8.4-10.2) mg/dL Total Bilirubin 1.3 (0.2-1.3) mg/dL AST 37 (17-59) U/L ALT 23 (4-49) U/L Alkaline Phosphatase 59 (38-126) U/L Ammonia 139 H (<30) umol/L Troponin I 0.014 (0.000-0.034) ng/mL Total Protein 5.7 L (6.3-8.2) g/dL Albumin 3.0 L (3.5-5.0) g/dL Coronavirus (PCR) (Not Detectd) 06/15/21 Range/Units 16:40 WBC (3.8-10.6) k/uL RBC (4.30-5.90) m/uL Hgb (13.0-17.5) gm/dL Hct (39.0-53.0) % MCV (80.0-100.0) fL MCH (25.0-35.0) pg MCHC (31.0-37.0) g/dL RDW (11.5-15.5) % Plt Count (150-450) k/uL MPV Neutrophils % % Lymphocytes % % Monocytes % % Eosinophils % % Basophils % % Neutrophils # (1.3-7.7) k/uL Lymphocytes # (1.0-4.8) k/uL Monocytes # (0-1.0) k/uL Eosinophils # (0-0.7) k/uL Basophils # (0-0.2) k/uL PT (9.0-12.0) sec INR (<1.2) APTT (22.0-30.0) sec Sodium (137-145) mmol/L Potassium (3.5-5.1) mmol/L Chloride (98-107) mmol/L Carbon Dioxide (22-30) mmol/L Anion Gap mmol/L BUN (9-20) mg/dL Creatinine (0.66-1.25) mg/dL Est GFR (CKD-EPI)AfAm (>60 ml/min/1.73 sqM) Est GFR (CKD-EPI)NonAf (>60 ml/min/1.73 sqM) Glucose (74-99) mg/dL POC Glucose (mg/dL) (75-99) mg/dL POC Glu Clerk ID Plasma Lactic Acid Alphonse (0.7-2.0) mmol/L Calcium (8.4-10.2) mg/dL Total Bilirubin (0.2-1.3) mg/dL AST (17-59) U/L ALT (4-49) U/L Alkaline Phosphatase (38-126) U/L Ammonia (<30) umol/L Troponin I (0.000-0.034) ng/mL Total Protein (6.3-8.2) g/dL Albumin (3.5-5.0) g/dL Coronavirus (PCR) Not Detected (Not Detectd) - EKG Data -: EKG Interpreted by Me EKG Comments: 12-lead Electrocardiogram Interpretation Note EKG was reviewed and interpreted by myself. 12-lead ECG performed at 1503 is interpreted by me as revealing sinus bradycardia at a rate of 52 beats per minute. [place] is normal. OK interval is 190 ms, QRS duration is 70 ms, QTc is 476 ms.. There were no ST or T wave abnormalities to suggest myocardial ischemia or injury. R wave progression across the precordium was satisfactory. By my interpretation this EKG is non-diagnostic for acute ischemia. Critical Care Time Critical Care Time: Yes Total Critical Care Time: 35 Critical Care Time: Upon my evaluation, this patient had a high probability of imminent or life- threatening deterioration due to altered mental status, hepatic encephalopathy, CVA, stroke pager activation, which required my direct attention, intervention, and personal management. I have personally provided 35 minutes of critical care time exclusive of time spent on separately billable procedures. Time includes review of laboratory data, radiology results, discussion with consultants, and monitoring for potential decompensation. Interventions were performed as documented in my note. Disposition Clinical Impression: Hyperammonemia, Hepatic encephalopathy, Altered mental status, CVA (cerebral vascular accident) Disposition: ADMITTED IP TO THIS HOSP Condition: Serious
[2021-06-15 17:10] LABS: Appearance,Urine Cloudy (Clear); Bilirubin,Urine Negative (Negative); Blood,Urine Large (Negative); Calcium Oxalate Crystals,Urine Occasional /hpf; Color,Urine Light Red; Glucose,Urine (UA) Negative (Negative); Hyaline Casts,Urine 4 /lpf (0-2); Ketones,Urine Negative (Negative); Leukocyte Esterase,Urine Small (Negative); Mucus,Urine Few /hpf; Nitrite,Urine Negative (Negative); PH, Urine 5.5 (5.0-8.0); Protein,Urine 1+ (Negative); RBC,Urine >182 /hpf (0-5); Squamous Epithelial Cell,Urine <1 /hpf (0-4); WBC,Urine 17 /hpf (0-5)
[2021-06-15] MEDS ORDERED: cefTRIAXone IN SWFI 1,000 MG/10 ML SYRINGE IVP STA (19:15)
[2021-06-15] MEDS: AMIODARONE 200 MG TAB PO SCH (19:59)
[2021-06-15] MEDS ORDERED: APIXABAN 5 MG TAB PO SCH (21:00)
[2021-06-15] MEDS: LACTULOSE 200 GM/300 ML (FROM 1/2 GAL JUG) RECTAL SCH (22:05)
[2021-06-16] MEDS: PANTOPRAZOLE 40 MG TABLET PO SCH (01:43)
[2021-06-16] MEDS: LACTULOSE 200 GM/300 ML (FROM 1/2 GAL JUG) RECTAL SCH ×4 (03:38→20:38)
[2021-06-16] MEDS: SYMBICORT 80-4.5 MCG INHALER INHALATION SCH ×2 (07:35→19:31)
[2021-06-16 09:16] LABS: Potassium 3.8 mmol/L (3.5-5.1)
[2021-06-16 09:17] LABS: African American GFR (CKD) >90 (>60 ml/min/1.73 sqM); Anion Gap 5 mmol/L; Blood Urea Nitrogen 18 mg/dL (9-20); Calcium 8.9 mg/dL (8.4-10.2); Carbon Dioxide 26 mmol/L (22-30); Chloride 108 mmol/L (98-107); Glucose 90 mg/dL (74-99); Non-African American GFR(CKD) 78 (>60 ml/min/1.73 sqM); Sodium 139 mmol/L (137-145)
[2021-06-16] MEDS: METOPROLOL SUCCINATE (ER) 50 MG TAB.ER.24H PO SCH (10:47)
[2021-06-16] MEDS: TAMSULOSIN 0.4 MG CAP.ER.24H PO SCH (10:47)
[2021-06-16] MEDS: ASPIRIN 300 MG SUPP RECTAL SCH (10:47)
[2021-06-16] MEDS: THIAMINE 100 MG TAB PO SCH (10:47)
[2021-06-16] MEDS: AMIODARONE 200 MG TAB PO SCH ×2 (10:47→20:18)
[2021-06-16] MEDS: FOLIC ACID 1 MG TAB PO SCH (10:47)
--- NOTE | 2021-06-16 10:49 | P.HPIM ---
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 Last known well was 8 AM this morning. Patient is normally alert and oriented 4 and able to interact and uses all 4 extremities without issue. Patient has been mute since this time, is not moving his left upper left lower extremity, there is minimal movement of the right upper and right lower extremities. It is progressively gotten worse and he called EMS to the patient evaluated. He was recently worked up for possible stroke and was negative. Patient is unable to provide any further history at this time. Code stroke was activated. Patient was taken to CT scanner for imaging. --Brain CT was remarkable for no acute intracranial abnormality. There is chronic small vessel disease. There is chronic atrophy. CTA shows atherosclerotic disease. There is focal moderate stenosis of the proximal V4 segment of the right vertebral artery otherwise no large vessel intracranial arterial occlusion or significant stenosis. 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 Follow-up CT angiogram is recommended. ED physician spoke with the neuro carpenter helper maintenance information technology data analyst. Patient is outside the TPA window. There is no significant occlusion to pursue with thrombectomy. 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 History of Any Multi-Drug Resistant Organisms: None Reported Past Surgical History: Appendectomy, Cardiac Ablation, Cholecystectomy, Heart Catheterization, Orthopedic Surgery, Pacemaker Additional Past Surgical History / Comment(s): 08/30/20 TURP, laparotomy for ulcer repair/partial gastrectomy, hemorrhoidectomy, colonoscopies, EGDs, bilateral cataract removals, skin cancer removed from face, occipital nerve injections. Fall with R HIP Fx with Sx repair on 04/15/21 Past Anesthesia/Blood Transfusion Reactions: No Reported Reaction Type of Cardiac Device: Permanent Pacemaker Device Placement Date:: 2013 Past Psychological History: No Psychological Hx Reported Additional Psychological History / Comment(s): Per spouse. Smoking Status: Former smoker Past Alcohol Use History: None Reported Additional Past Alcohol Use History / Comment(s): STARTED SMOKING AT AGE 22, SMOKED 1 PPD. HAD QUIT ONCE FOR 1O YEARS THEN RESTARTED AFTER OF SON, QUIT IN 1999. Past Drug Use History: None Reported - Past Family History Father Family Medical History: CVA/TIA Additional Family Medical History / Comment(s): Father had TIAs. He passed at the age of 82 yrs. Mother Family Medical History: Diabetes Mellitus Additional Family Medical History / Comment(s): AT AGE 76. Medications and Allergies Home Medications Medication Instructions Recorded Confirmed Type Apixaban [Eliquis] 5 mg PO BID 05/20/17 06/15/21 History Acetaminophen Tab [Tylenol] 650 mg PO Q6H PRN 03/04/21 06/15/21 History Amiodarone [Cordarone] 200 mg PO BID@08,199906/15/21 06/15/21 History Fluticasone/Vilanterol [Breo 1 puff PO RT-DAILY 06/15/21 06/15/21 History Ellipta 100-25 Mcg Inhaler] Folic Acid 1 mg PO DAILY 06/15/21 06/15/21 History Lactulose 30 gm PO TID 06/15/21 06/15/21 History Metoprolol Succinate (ER) [Toprol 50 mg PO DAILY 06/15/21 06/15/21 History Xl] Multivitamins, Thera [Multivitamin 1 tab PO DAILY 06/15/21 06/15/21 History (formulary)] Omeprazole 20 mg PO DAILY 06/15/21 06/15/21 History Tamsulosin [Flomax] 0.4 mg PO DAILY 06/15/21 06/15/21 History Thiamine [Vitamin B-1] 100 mg PO DAILY 06/15/21 06/15/21 History Allergies Allergy/AdvReac Type Severity Reaction Status Date / Time sulfamethoxazole Allergy Unknown Verified 06/15/21 16:40 [From Bactrim] temazepam [From Restoril] Allergy Unknown Verified 06/15/21 16:40 trimethoprim [From Bactrim] Allergy Unknown Verified 06/15/21 16:40 verapamil Allergy Unknown Verified 06/15/21 16:40 codeine AdvReac Intermediate Hallucinati Verified 06/15/21 16:40 ons atorvastatin [From Lipitor] AdvReac Nausea & Verified 06/15/21 16:40 Vomiting prednisone AdvReac agitated Verified 06/15/21 16:40 Physical Exam Vitals: Vital Signs Temp Pulse Pulse Resp BP BP Pulse Ox 06/16/21 07:59 18 06/16/21 07:49 98.0 F 60 18 135/65 94 L 06/16/21 04:00 97.8 F 55 L 18 126/61 94 L 06/16/21 01:38 52 L 06/15/21 23:41 97.6 F 52 L 16 118/57 94 L 06/15/21 21:38 97.8 F 52 L 18 135/59 96 06/15/21 21:30 52 L 06/15/21 21:00 52 L 20 134/56 98 06/15/21 20:00 50 L 22 123/60 99 06/15/21 17:04 49 L 20 131/60 99 06/15/21 16:40 49 L 20 125/64 99 06/15/21 15:30 50 L 18 103/64 100 06/15/21 15:12 98.1 F 06/15/21 15:09 50 L 18 103/64 100 06/15/21 15:03 51 L 20 103/64 100 06/15/21 15:01 54 L 17 138/69 100 06/15/21 14:35 97 F L 51 L 18 133/66 100 Intake and Output 06/15/21 06/16/21 06/16/21 22:59 06:59 14:59 Output Total 600 Balance -600 Output: Urine 600 Other: Voiding Method Indwelling Catheter Indwelling Catheter Indwelling Catheter # Bowel Movements 1 Weight 58.967 kg 64.5 kg 64.5 kg General: Patient is alert but is unable to speak. He was able to say the word yes but nothing else. He will follow basic commands such as closing eyes and squeezing hand. HEAD: Normal with no signs of head trauma. EYES: PERRLA, EOMI, conjunctiva normal, no discharge. Pupils are 3 mm and equal bilaterally. ENT: Normal oropharynx. RESPIRATORY: Clear breath sounds bilaterally. No wheezes, rales, or rhonchi. C/V: Regular rate and rhythm. S1 and S2 auscultated, no edema, peripheral pulses 2+ and intact throughout ABD: Abd is soft, nontender, nondistended EXT: Normal range of motion, no obvious deformity SKIN: No rashes or lesions observed on exposed skin. NEURO: Alert but not oriented. Neurological exam is difficult to obtain s econdary to patient's critical status. NIH is high, at approximately 21 for mutism, no effort on the left upper and left lower extremities, no effort against gravity on the right upper and right lower extremities. Patient is able follow basic commands. He is below his baseline of A&O4 with no neurological deficit Results CBC & Chem 7: 06/15/21 14:58 06/16/21 08:00 Labs: Abnormal Lab Results - Last 24 Hours (Table) 06/15/21 06/15/21 06/15/21 Range/Units 14:37 14:58 14:58 RBC 4.17 L (4.30-5.90) m/uL Hgb 12.5 L (13.0-17.5) gm/dL Hct 37.6 L (39.0-53.0) % Plt Count 116 L (150-450) k/uL PT 13.7 H (9.0-12.0) sec INR 1.3 H (<1.2) Chloride (98-107) mmol/L Glucose (74-99) mg/dL POC Glucose (mg/dL) 117 H (75-99) mg/dL Ammonia (<30) umol/L Total Protein (6.3-8.2) g/dL Albumin (3.5-5.0) g/dL Urine Protein (Negative) Urine Blood (Negative) Ur Leukocyte Esterase (Negative) Urine RBC (0-5) /hpf Urine WBC (0-5) /hpf Calcium Oxalate Crystal (None) /hpf Hyaline Casts (0-2) /lpf Urine Mucus (None) /hpf 06/15/21 06/15/21 06/15/21 Range/Units 14:58 14:58 16:49 RBC (4.30-5.90) m/uL Hgb (13.0-17.5) gm/dL Hct (39.0-53.0) % Plt Count (150-450) k/uL PT (9.0-12.0) sec INR (<1.2) Chloride (98-107) mmol/L Glucose 123 H (74-99) mg/dL POC Glucose (mg/dL) (75-99) mg/dL Ammonia 139 H (<30) umol/L Total Protein 5.7 L (6.3-8.2) g/dL Albumin 3.0 L (3.5-5.0) g/dL Urine Protein 1+ H (Negative) Urine Blood Large H (Negative) Ur Leukocyte Esterase Small H (Negative) Urine RBC >182 H (0-5) /hpf Urine WBC 17 H (0-5) /hpf Calcium Oxalate Crystal Occasional H (None) /hpf Hyaline Casts 4 H (0-2) /lpf Urine Mucus Few H (None) /hpf 06/16/21 Range/Units 08:00 RBC (4.30-5.90) m/uL Hgb (13.0-17.5) gm/dL Hct (39.0-53.0) % Plt Count (150-450) k/uL PT (9.0-12.0) sec INR (<1.2) Chloride 108 H (98-107) mmol/L Glucose (74-99) mg/dL POC Glucose (mg/dL) (75-99) mg/dL Ammonia (<30) umol/L Total Protein (6.3-8.2) g/dL Albumin (3.5-5.0) g/dL Urine Protein (Negative) Urine Blood (Negative) Ur Leukocyte Esterase (Negative) Urine RBC (0-5) /hpf Urine WBC (0-5) /hpf Calcium Oxalate Crystal (None) /hpf Hyaline Casts (0-2) /lpf Urine Mucus (None) /hpf Microbiology - Last 24 Hours (Table) 06/15/21 16:49 Urine Culture - Preliminary Urine,Voided Thrombosis Risk Factor Assmnt - Choose All That Apply Any of the Below Risk Factors Present?: Yes Each Factor Represents 1 point: Medical pt on bed rest Other Risk Factors: Yes Each Risk Factor Represents 2 Points: Patient confined to bed Each Risk Factor Represents 3 Points: Age 75 years or older Other congenital or acquired thrombophilia - If yes, enter type in comment: No Thrombosis Risk Factor Assessment Total Risk Factor Score: 6 Thrombosis Risk Factor Assessment Level: High Risk Assessment and Plan Assessment: 1. Altered mental status; rule out CVA; patient remains on aspirin; anticoagulation remains on hold till cleared by neurology 2. Hepatic encephalopathy secondary to hyperammonemia; patient has been placed on lactulose 200 mg every 6 hours; we will monitor ammonia levels closely and make adjustments treatment 3. UTI; possible; we will monitor CBC and his inflammatory markers; await urine culture results; Rocephin 1 g IV daily 4. Atrial fibrillation; rate controlled on metoprolol 50 mg daily and amiodarone 200 mg twice a day; remains on systemic anticoagulation 5. Hypertension; metoprolol 50 mg daily 6. BPH; Flomax 0.4 mg daily 7. COPD; not in exacerbation; continue home inhalers therapy with Breo Ellipta DVT prophylaxis SCDs/systemic anticoagulation CODE STATUS; DO NOT RESUSCITATE
[2021-06-16 11:41] LABS: Chol/HDL Ratio 1.64 Ratio; HDL Cholesterol 56.1 mg/dL (40.00-60.00); LDL Cholesterol,Calculated 26.4 mg/dL (0.0-131.0); Triglycerides 47.7 mg/dL (0.00-149.00); VLDL Calculation 9.54 mg/dL (5.00-40.00)
[2021-06-16 11:45] LABS: Basophils % (A) 0 %; Eosinophils # (A) 0.1 k/uL (0-0.7); Eosinophils % (A) 3 %; HCT 38.7 % (39.0-53.0); HGB 12.9 gm/dL (13.0-17.5); Lymphocytes # (A) 0.5 k/uL (1.0-4.8); Lymphocytes % (A) 12 %; MCH 29.8 pg (25.0-35.0); MCHC 33.3 g/dL (31.0-37.0); MCV 89.7 fL (80.0-100.0); Mean Platelet Volume 8.1; Monocytes # (A) 0.4 k/uL (0-1.0); Monocytes % (A) 8 %; Neutrophils # (A) 3.2 k/uL (1.3-7.7); Neutrophils % (A) 74 %; RBC 4.32 m/uL (4.30-5.90); RDW 14.7 % (11.5-15.5); WBC 4.3 k/uL (3.8-10.6)
--- NOTE | 2021-06-16 12:34 | P.CNNES ---
History of Present Illness Consult date: 06/16/21 Requesting physician: Sunny Kiser Reason for Consult: stroke History of Present Illness: This is an 89-year-old gentleman with medical history of hepatic encephalopathy secondary due to hyperammonemia, paroxysmal atrial fibrillation on Eliquis, pacemaker, urinary tract infection who presented emergency department via EMS on 06/15/2021 for concern of altered mental status and possible strokelike symptoms. Some of the history is obtained from a medical records. Per the ED note the patient's last normal was 8 AM on 06/15/2021 and usually the patient's is the baseline alert oriented 4 and moves all extremities without any difficulty. But since morning he has been mute and not moving the left upper and lower and minimal movement over the right side and progressively worsening. So patient contacted EMS. I spoke with the patient's was at bedside and she stated that the this usually happens when his ammonia level is elevated and his whole body is weak stated that he's been having recurrent conditions where his ammonia level Being Elevated. She stated that that today earlier he was able to state her name. Of note, she was seen last by Dr. Sylvester on 05/27/2021 total the patient's altered mental status was likely due to hepatic encephalopathy. Patient had ammonia level elevated as high as 202 and was down as low as 21. Patient the mentation improved at. His examination there is no focality and there is no evidence for stroke. Some of the workup in the hospital consisted off Initial vital signs his blood pressure of 133/66, heart rate of 58, respiratory of 20, temperature of 97.0 Fahrenheit oral and pulse ox of 96% room air. White blood cells 4.0 thousand, hemoglobin is 12.5, hematocrit is 37.6, platelet is 116. Initial POC glucose 117, sodium is 137, creatnine 0.96, calcium is 8.8, AST of 37 and ALT of 23. Ammonia level is 139. PT of 13.7, INR 1.3 and PTT of 25.8. Initial CT of the head is reported as no acute intracranial abnormality seen. Of concern for septal acute ischemia, follow-up MRI. Mild generalized atrophy and moderate to severe confluent burden of chronic small vessel ischemic disease, unchanged from prior. Moderate chronic ethmoid sinus disease. Possible acute left sphenoid sinusitis. Personally reviewed the CT of the head that there is no acute or subacute ischemia and there is no intracranial hemorrhage and that is appreciable. CT angiography of the head is reported as focal moderate stenosis proximal V4 segment right vertebral artery. Otherwise no large vessel intracranial artery occlusion or significant stenosis. 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 6 month follow-up CT angiography can reassess. CT angiography of the neck was reported as moderate atherosclerotic changes of bilateral carotid bifurcation with mild less than 4% proximal ICA stenosis on either side. Dominant left vertebral artery The ED spoke with the stroke team and the patient is outside the TPA window. And no intervention was required thence no significant occlusion to pursue with thrombectomy. Review of Systems Review of system is limited because of patient condition. 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 History of Any Multi-Drug Resistant Organisms: None Reported Past Surgical History: Appendectomy, Cardiac Ablation, Cholecystectomy, Heart Catheterization, Orthopedic Surgery, Pacemaker Additional Past Surgical History / Comment(s): 08/30/20 TURP, laparotomy for ulcer repair/partial gastrectomy, hemorrhoidectomy, colonoscopies, EGDs, bilateral cataract removals, skin cancer removed from face, occipital nerve injections. Fall with R HIP Fx with Sx repair on 04/15/21 Past Anesthesia/Blood Transfusion Reactions: No Reported Reaction Type of Cardiac Device: Permanent Pacemaker Device Placement Date:: 2013 Past Psychological History: No Psychological Hx Reported Smoking Status: Former smoker Past Alcohol Use History: None Reported Past Drug Use History: None Reported - Past Family History Father Family Medical History: CVA/TIA Additional Family Medical History / Comment(s): Father had TIAs. He passed at the age of 82 yrs. Mother Family Medical History: Diabetes Mellitus Additional Family Medical History / Comment(s): AT AGE 76. Medications and Allergies Home Medications Medication Instructions Recorded Confirmed Type Apixaban [Eliquis] 5 mg PO BID 05/20/17 06/15/21 History Acetaminophen Tab [Tylenol] 650 mg PO Q6H PRN 03/04/21 06/15/21 History Amiodarone [Cordarone] 200 mg PO BID@0800,199906/15/21 06/15/21 History Fluticasone/Vilanterol [Breo 1 puff PO RT-DAILY 06/15/21 06/15/21 History Ellipta 100-25 Mcg Inhaler] Folic Acid 1 mg PO DAILY 06/15/21 06/15/21 History Lactulose 30 gm PO TID 06/15/21 06/15/21 History Metoprolol Succinate (ER) [Toprol 50 mg PO DAILY 06/15/21 06/15/21 History Xl] Multivitamins, Thera [Multivitamin 1 tab PO DAILY 06/15/21 06/15/21 History (formulary)] Omeprazole 20 mg PO DAILY 06/15/21 06/15/21 History Tamsulosin [Flomax] 0.4 mg PO DAILY 06/15/21 06/15/21 History Thiamine [Vitamin B-1] 100 mg PO DAILY 06/15/21 06/15/21 History Allergies Allergy/AdvReac Type Severity Reaction Status Date / Time sulfamethoxazole Allergy Unknown Verified 06/15/21 16:40 [From Bactrim] temazepam [From Restoril] Allergy Unknown Verified 06/15/21 16:40 trimethoprim [From Bactrim] Allergy Unknown Verified 06/15/21 16:40 verapamil Allergy Unknown Verified 06/15/21 16:40 codeine AdvReac Intermediate Hallucinati Verified 06/15/21 16:40 ons atorvastatin [From Lipitor] AdvReac Nausea & Verified 06/15/21 16:40 Vomiting prednisone AdvReac agitated Verified 06/15/21 16:40 Physical Examination - Vital Signs Vital Signs: Vital Signs Temp Pulse Resp BP Pulse Ox 06/15/21 15:12 98.1 F 06/15/21 15:09 50 L 18 103/64 100 06/15/21 15:03 51 L 20 103/64 100 06/15/21 14:35 97 F L 51 L 18 133/66 100 Intake and Output 06/15/21 06/15/21 06/15/21 06:59 14:59 22:59 Other: Weight 58.967 kg GENERAL: The patient is lying in bed and does not seem in acute distress. CHEST: The heart rate is regular rate rhythm. No murmurs to auscultation. No carotid bruit bilaterally. LUNG: Clear to auscultation bilaterally no wheezing noted throughout. Not labored breathing. ABDOMEN/GI: Bowel sounds present in all 4 quadrants. No tenderness to palpation throughout. NEUROLOGICAL: Higher mental function: The patient is drowsy but is awakeable to voice. He is oriented to his name and states his 's name appropriately. He does not respond to place or time. He correctly stated object (pen). He followed few simple commands (smiling and lifting extremities). No neglect. Could not assess language in detail since not verbalizing much. Cranial nerves: The pupils are round, equal and reactive to light. Visual fontenot could not be assessed. Extraocular movement is tracking me throughout the room. No facial weakness. No dysarthria is noted. Motor: The strength is moving all extremities above gravity and did not appear any focality (could not assess individual muscle because of his cooperation). Hand marine designer is 4/5 bilaterally. Has hand asterixis bilaterally. Normal tone and bulk. Cerebellum: Could not assess. Sensation: Could not assess. Reflexes (right/left): 2+ throughout. Plantars are mute bilaterally. Results - Laboratory Findings CBC and BMP: 06/16/21 11:33 06/16/21 08:00 Abnormal Lab Findings: Abnormal Labs 06/15/21 06/15/21 06/15/21 14:37 14:58 14:58 RBC 4.17 L Hgb 12.5 L Hct 37.6 L Plt Count 116 L PT 13.7 H INR 1.3 H Glucose POC Glucose (mg/dL) 117 H Ammonia Total Protein Albumin 06/15/21 06/15/21 14:58 14:58 RBC Hgb Hct Plt Count PT INR Glucose 123 H POC Glucose (mg/dL) Ammonia 139 H Total Protein 5.7 L Albumin 3.0 L Assessment and Plan Assessment: * Altered mental status with generalized weakness due to hyperammonemic encephalopathy (level of 139)--some improvement * Recurrent hyperammonemia (has ammonia level as tory as 202 on 06/03/2021). Possibly non-hepatic (since his AST and ALT are predominately normal) vs hepatic from cirrhosis. 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 He was started on aspirin 300 mg daily. From a neurological perspective patient can be restarted on Eliquis and aspirin can be stopped since stroke is unlikely. Will avoid statins because of repeated episodes of hyperammonemia and the patient is ALLERGIC to the Lipitor. * We'll get a repeat CT of the head tomorrow. Cannot get MRI since the patient has a pacemaker (patient's is agreement and does not want to have any further imaging today and want to see if patient clinically improves). * Lipid Panel is ordered * Continue neuro checks * On cardiac monitoring * PT, OT and SALT LIFTER are consulted * TSH: 6.320 (06/13/21) and free T4 1.310. I will not get repeat testing. * Hemoglobin A1c: 5.2 on 06/13/21 and I will not repeat it. * Patient was given lactulose in the ED and will defer the hyperammonemia management to the primary team. Consider Gastroenterology consult. * We'll defer the rest of medical management to the primary team. The plan is discussed with the patient's who is at bedside and his nurse. Thank you for the consultation. Arie Bravo M.D. Neuro-hospitalist Time with Patient: Greater than 30
[2021-06-16 12:43] LABS: Platelet Count 98 k/uL (150-450)
[2021-06-16 12:44] LABS: Poikilocytosis (M) Present
[2021-06-16 13:26] LABS: LDL Cholesterol,Direct Reflex 32.2 mg/dL (0.00-129.00)
[2021-06-16] MEDS ORDERED: diphenhydrAMINE 50 MG/ML 1 ML VIAL IVP STA (20:04)
[2021-06-16] MEDS: APIXABAN 5 MG TAB PO SCH (20:18)
[2021-06-17] MEDS: PANTOPRAZOLE 40 MG TABLET PO SCH (06:30)
[2021-06-17] MEDS: SYMBICORT 80-4.5 MCG INHALER INHALATION SCH ×2 (07:58→21:19)
[2021-06-17 09:10] LABS: African American GFR (CKD) >90 (>60 ml/min/1.73 sqM); Anion Gap 7 mmol/L; Blood Urea Nitrogen 16 mg/dL (9-20); Calcium 8.8 mg/dL (8.4-10.2); Carbon Dioxide 27 mmol/L (22-30); Chloride 105 mmol/L (98-107); Glucose 88 mg/dL (74-99); Non-African American GFR(CKD) 82 (>60 ml/min/1.73 sqM); Potassium 3.7 mmol/L (3.5-5.1); Sodium 139 mmol/L (137-145)
[2021-06-17] MEDS: APIXABAN 5 MG TAB PO SCH (09:27)
[2021-06-17] MEDS: FOLIC ACID 1 MG TAB PO SCH (09:28)
[2021-06-17] MEDS: AMIODARONE 200 MG TAB PO SCH ×2 (09:28→21:35)
[2021-06-17] MEDS: METOPROLOL SUCCINATE (ER) 50 MG TAB.ER.24H PO SCH (09:28)
[2021-06-17] MEDS: TAMSULOSIN 0.4 MG CAP.ER.24H PO SCH (09:28)
[2021-06-17] MEDS: THIAMINE 100 MG TAB PO SCH (09:29)
[2021-06-17] MEDS: ASPIRIN 300 MG SUPP RECTAL SCH (10:09)
--- NOTE | 2021-06-17 10:42 | CT ---
EXAMINATION TYPE: CT brain wo con DATE OF EXAM: 06/17/2021 COMPARISON: 06/15/2021 HISTORY: left side weakness TECHNIQUE: CT scan of the head performed without contrast CT DLP: 1099.4 mGycm Automated exposure control for dose reduction was used. FINDINGS: No acute intracranial hemorrhage, midline shift or mass effect. Trinh-white matter differentiation is preserved. Patchy low-attenuation the deep white matter and periventricular region likely related to chronic graciela rovascular ischemic changes. Prominent CSF spaces and ventricles in keeping with chronic volume loss. Stable foci of increased attenuation and decreased attenuation in the bilateral basal ganglia likely on the basis of lacunar infarcts and/or remote ischemic insult. No acute osseous, orbital or soft tissue abnormalities. Mild generalized osteopenia. Mucosal sinus disease again seen in the left sphenoid sinus. Mild atherosclerotic calcifications in the internal carotid arteries. IMPRESSION: NO ACUTE INTRACRANIAL HEMORRHAGE, MIDLINE SHIFT OR MASS EFFECT. STABLE LIKELY CHRONIC FINDINGS DESCRIBED IN BODY OF REPORT.
[2021-06-17] MEDS: LACTULOSE 20 GM/30 ML CUP PO SCH ×3 (13:01→21:36)
[2021-06-17 13:47] VITALS: RESP 18
[2021-06-17] MEDS: LACTULOSE 200 GM/300 ML (FROM 1/2 GAL JUG) RECTAL SCH (13:57)
--- NOTE | 2021-06-17 14:24 | P.PN ---
Subjective Progress Note Date: 06/17/21 Patient is seen and per the who is at bedside he is moving all extremities without difficulty and does not have facial droop. Per he continues to be generalized weak and lethargic but is doing better today compared to yesterday. Objective - Vital Signs Vital signs: Vital Signs Temp 98.0 F 06/17/21 08:00 Pulse 87 06/17/21 08:00 Resp 18 06/17/21 08:00 BP 139/78 06/17/21 08:00 Pulse Ox 98 06/17/21 08:00 Intake & Output 06/16/21 06/17/21 06/17/21 18:59 06:59 18:59 Intake Total 0 Output Total 220 500 Balance -220 -500 0 Weight 64.5 kg 60.5 kg Intake: Oral 0 Output: Urine 220 500 Other: Voiding Method Indwelling Catheter Indwelling Catheter Indwelling Catheter # Bowel Movements 1 - Exam GENERAL: The patient is lying in bed and does not seem in acute distress. NEUROLOGICAL: Higher mental function: The patient is drowsy but is awakeable to voice. He is oriented to his name. He correctly states he is in the hospital and states the year correctly. He did no respond to month. He is able to name objects correctly (watch and pen). He followed simple commands. . No aphasia or neglect. Cranial nerves: The pupils are round, equal and reactive to light. Extraocular movement is normal. No facial weakness. No dysarthria is noted. Motor: The strength is moving all extremities above gravity and did not appear any focality (Normal tone and bulk. WORK-UP: Initial ammonia on presentation is 139 then went down to 28 and currently its 39 AST of 37 and ALT of 23. Initial CT of the head is reported as no acute intracranial abnormality seen. Of concern for septal acute ischemia, follow-up MRI. Mild generalized atrophy and moderate to severe confluent burden of chronic small vessel ischemic disease, unchanged from prior. Moderate chronic ethmoid sinus disease. Possible acute left sphenoid sinusitis. Personally reviewed the CT of the head that there is no acute or subacute ischemia and there is no intracranial hemorrhage and that is appreciable. CT angiography of the head is reported as focal moderate stenosis proximal V4 segment right vertebral artery. Otherwise no large vessel intracranial artery occlusion or significant stenosis. 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 6 month follow-up CT angiography can reassess. CT angiography of the neck was reported as moderate atherosclerotic changes of bilateral carotid bifurcation with mild less than 4% proximal ICA stenosis on either side. Dominant left vertebral artery Repeat CT of the head on 06/17/2021 is reported as no acute intracranial hemorrhage, midline shift or mass effect. Stable likely chronic finding. - Labs CBC & Chem 7: 06/16/21 11:33 06/17/21 07:44 Labs: Abnormal Lab Results - Last 24 Hours (Table) 06/17/21 Range/Units 07:44 Ammonia 39 H (<30) umol/L Microbiology - Last 24 Hours (Table) 06/15/21 16:44 Blood Culture - Preliminary Blood No Growth after 24 hours 06/15/21 16:42 Blood Culture - Preliminary Blood No Growth after 24 hours 06/15/21 16:49 Urine Culture - Final Urine,Voided Assessment and Plan Assessment: * Altered mental status with generalized weakness due to hyperammonemic encephalopathy (level of 139)-improving (two repeated CT head are negative for acute or subacute ischemia) * Recurrent hyperammonemia (has ammonia level as tory as 202 on 06/03/2021). Possibly non-hepatic (since his AST and ALT are predominately normal) vs hepatic from cirrhosis. 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 Will avoid statins because of repeated episodes of hyperammonemia and the patient is ALLERGIC to the Lipitor. * Continue neuro checks * On cardiac monitoring * PT, OT and OFFICE MACHINE SERVICER APPRENTICE are consulted * TSH: 6.320 (06/13/21) and free T4 1.310. I will not get repeat testing. * Hemoglobin A1c: 5.2 on 06/13/21 and I will not repeat it. * Regardring his hyperammonemia management will defer to the primary team. Consider Gastroenterology consult. * We'll defer the rest of medical management to the primary team. The plan is discussed with the patient's who is at bedside and his nurse. There is no further neurological work-up. Neurology will sign off. Please reconsult if needed. Arie Bravo M.D. Neuro-hospitalist Time with Patient: Less than 30
--- NOTE | 2021-06-17 17:51 | P.PN ---
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 for altered mental status and strokelike symptoms. Last known well was 8 AM this morning. Patient is normally alert and oriented 4 and able to interact and uses all 4 extremities without issue. Patient has been mute since this time, is not moving his left upper left lower extremity, there is minimal movement of the right upper and right lower extremities. It is progressively gotten worse and he called EMS to the patient evaluated. He was recently worked up for possible stroke and was negative. Patient is unable to provide any further history at this time. Code stroke was activated. Patient was taken to CT scanner for imaging. --Brain CT was remarkable for no acute intracranial abnormality. There is chronic small vessel disease. There is chronic atrophy. CTA shows atheroscle rotic disease. There is focal moderate stenosis of the proximal V4 segment of the right vertebral artery otherwise no large vessel intracranial arterial occlusion or significant stenosis. 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 Follow-up CT angiogram is recommended. ED physician spoke with the neuro draw fire operator foundation director. Patient is outside the TPA window. There is no significant occlusion to pursue with thrombectomy. 06/17/2021 Patient is seen and evaluated in room with and son at bedside; family is very concerned about repeated episodes of hyperammonemia; did report patient was receiving lactulose twice daily in ECF with concerns about ammonia level shooting up despite being treated; discussion about possible etiology of h yperammonemia discussed with patient's family with recommendations for outpatient follow-up with GI; according to patient's son, patient has been seen by Dr. Moy from gastroenterology and has been told that next step In evaluation would be liver biopsy to rule out liver cirrhosis and patient and family were told that patient is a poor candidate for such procedure due to age and complicated medical history; patient's son is insistent that an infectious etiology is underlying hyperammonemia and wants patient to be treated with antibiotics; patient's family wouldn't clean the patient was placed on IV Rocephin at time of admission for a possible UTI which has been discontinued due to negative urine culture; due to patient's family's insistence that infectious etiologies at the bottom of repeated hospitalization, consultation with infectious diseases recommended and family is agreeable Son also notes that he wants patient to be on IV fluids since he is getting dehydrated due to receiving lactulose; stable labs were discussed with family; patient will be started on slow IV fluid hydration At this time family is agreeable on continuing lactulose at a twice a day dosing with daily monitoring of ammonia levels to adjust lactulose to an optimal dose Objective - Vital Signs Vital signs: Vital Signs Temp 98.5 F 06/17/21 04:00 Pulse 69 06/17/21 04:00 Resp 16 06/17/21 04:00 BP 147/72 06/17/21 04:00 Pulse Ox 93 L 06/17/21 04:00 Intake & Output 06/16/21 06/17/21 06/17/21 18:59 06:59 18:59 Intake Total 0 Output Total 220 500 Balance -220 -500 0 Weight 64.5 kg 60.5 kg Intake: Oral 0 Output: Urine 220 500 Other: Voiding Method Indwelling Catheter Indwelling Catheter # Bowel Movements 1 - Labs CBC & Chem 7: 06/16/21 11:33 06/17/21 07:44 Labs: Abnormal Lab Results - Last 24 Hours (Table) 06/16/21 06/17/21 Range/Units 11:33 07:44 Hgb 12.9 L (13.0-17.5) gm/dL Hct 38.7 L (39.0-53.0) % Plt Count 98 L (150-450) k/uL Lymphocytes # 0.5 L (1.0-4.8) k/uL Ammonia 39 H (<30) umol/L Microbiology - Last 24 Hours (Table) 06/15/21 16:44 Blood Culture - Preliminary Blood No Growth after 24 hours 06/15/21 16:42 Blood Culture - Preliminary Blood No Growth after 24 hours 06/15/21 16:49 Urine Culture - Final Urine,Voided Assessment and Plan Assessment: 1. Altered mental status; rule out CVA; patient remains on aspirin; anticoagulation remains on hold till cleared by neurology 2. 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 UTI; possible; we will monitor CBC and his inflammatory markers; await urine culture results; Rocephin 1 g IV daily 4. Atrial fibrillation; rate controlled on metoprolol 50 mg daily and amiodarone 200 mg twice a day; remains on systemic anticoagulation 5. Hypertension; metoprolol 50 mg daily 6. BPH; Flomax 0.4 mg daily 7. COPD; not in exacerbation; continue home inhalers therapy with Breo Ellipta DVT prophylaxis SCDs/systemic anticoagulation CODE STATUS; DO NOT RESUSCITATE
[2021-06-17] MEDS: DEXTROSE 5%-0.9% NACL 1,000 ML IV SCH (18:20)
--- NOTE | 2021-06-17 19:35 | P.EN ---
A- team: Indication: Bright red blood from uretheral meatus. Arrived on Scene to find: Willyg applying pressure to the perineum. Patient with blood under soaked bedding, nursing had attempted to replace bass Patient seen and examined at bedside. He denies light headedness, no chest pain, no shortness of breath, no nausea Vital signs reviewed General: non toxic, no distress, appears at stated age Derm: warm, dry, brusiing on bilateal upper extremities Head: atraumatic, normocephalic, symmetric Cardiovascular: S1S2 reg, no murmur, positive posterior tibial pulse bilateral, Lungs: CTA bilateral, no rhonchi, no rales , no accessory muscle use Abdominal: soft, nontender to palpation, no guarding, no appreciable organomegaly : Dried blood over groin area, blood at uretheral meatus. Assessment: Gross hematuria due to incidental removal of bass Unclear indication from nursing as to why patient had a bass placed Plan: D/W Urology airport control operator, no need to reinsert bass as no longer bleeding - hold eliquis - stat CBC, Pt/PTT - Monitor for signs of urianry retention Disposition: Remain on 3 [facility] [place] Notified: Nursing will notify Dr. Newman, On further chart review it appears that patient may have been admitted with chronic bass, nursing to investigate further and contact Dr. Ray if needed. A Total of 15 minutes of critical care time was spent on the complex care of this patient.
[2021-06-17 20:45] LABS: HCT 37.2 % (39.0-53.0); HGB 12.6 gm/dL (13.0-17.5); MCH 30.2 pg (25.0-35.0); MCHC 33.9 g/dL (31.0-37.0); Mean Platelet Volume 7.9; RBC 4.18 m/uL (4.30-5.90); RDW 14.6 % (11.5-15.5); WBC 7.2 k/uL (3.8-10.6)
[2021-06-17 20:53] LABS: Platelet Count 99 k/uL (150-450)
[2021-06-17 21:05] LABS: INR 1.4 (<1.2); Prothrombin Time 14.1 sec (9.0-12.0)
[2021-06-18] MEDS: DEXTROSE 5%-0.9% NACL 1,000 ML IV SCH (06:13)
[2021-06-18] MEDS: PANTOPRAZOLE 40 MG TABLET PO SCH (06:13)
[2021-06-18 06:52] LABS: Basophils % (A) 0 %; Eosinophils # (A) 0.3 k/uL (0-0.7); Eosinophils % (A) 5 %; HGB 12.1 gm/dL (13.0-17.5); Lymphocytes # (A) 0.9 k/uL (1.0-4.8); Lymphocytes % (A) 16 %; MCHC 33.6 g/dL (31.0-37.0); MCV 89.2 fL (80.0-100.0); Mean Platelet Volume 7.6; Monocytes # (A) 0.6 k/uL (0-1.0); Monocytes % (A) 10 %; Neutrophils # (A) 3.7 k/uL (1.3-7.7); Neutrophils % (A) 67 %; Platelet Count 101 k/uL (150-450); RBC 4.03 m/uL (4.30-5.90); WBC 5.6 k/uL (3.8-10.6)
[2021-06-18 07:19] LABS: ALT 21 U/L (4-49); AST 34 U/L (17-59); African American GFR (CKD) >90 (>60 ml/min/1.73 sqM); Albumin 2.6 g/dL (3.5-5.0); Alkaline Phosphatase 55 U/L (38-126); Anion Gap 1 mmol/L; Blood Urea Nitrogen 14 mg/dL (9-20); C Reactive Protein 1.9 mg/dL (<1.0); Calcium 8.3 mg/dL (8.4-10.2); Carbon Dioxide 29 mmol/L (22-30); Chloride 105 mmol/L (98-107); Glucose 100 mg/dL (74-99); Non-African American GFR(CKD) 80 (>60 ml/min/1.73 sqM); Potassium 3.4 mmol/L (3.5-5.1); Sodium 135 mmol/L (137-145); Total Bilirubin 2.1 mg/dL (0.2-1.3); Total Protein 5.1 g/dL (6.3-8.2)
[2021-06-18] MEDS: TAMSULOSIN 0.4 MG CAP.ER.24H PO SCH (08:25)
[2021-06-18] MEDS: AMIODARONE 200 MG TAB PO SCH ×2 (08:25→20:03)
[2021-06-18] MEDS: METOPROLOL SUCCINATE (ER) 50 MG TAB.ER.24H PO SCH (08:25)
[2021-06-18] MEDS: THIAMINE 100 MG TAB PO SCH (08:25)
[2021-06-18] MEDS: LACTULOSE 20 GM/30 ML CUP PO SCH ×3 (08:25→20:03)
[2021-06-18] MEDS: FOLIC ACID 1 MG TAB PO SCH (08:25)
[2021-06-18] MEDS: SYMBICORT 80-4.5 MCG INHALER INHALATION SCH ×2 (09:25→19:55)
[2021-06-18] MEDS ORDERED: ACETAMINOPHEN TAB 325 MG TAB PO PRN (09:45)
[2021-06-18] MEDS ORDERED: POTASSIUM CHLORIDE ER 20 MEQ TAB.ER PO STA (11:48)
--- NOTE | 2021-06-18 14:19 | P.CONS ---
History of Present Illness - Reason for Consult Consult date: 06/18/21 Hyperammonia Requesting physician: Emilie Ochoa - Chief Complaint hyperammonia, hepatic encephalopathy - History of Present Illness This is an 89 year old white male who presented to emergency department with altered mental status changes 3 days ago. He was noted to have an elevated ammonia at 202. He was recently hospitalized with confusion as well as elevated ammonia and was discharged on lactulose however patient was refusing to take his lactulose as he was concerned about incontinence. The patient has no prior history of liver disease, was never told that he had cirrhosis of the liver. Daughter states he has no significant history of alcoholism. Today patient is alert and oriented 3. He is on lactulose 20 g 3 times a day. He denies any abdominal pain, nausea, or vomiting. He denies any abdominal distention. WBC 5.6 hemoglobin 12.1 platelet count 101,000 INR 1.4 total bilirubin 2.1 AST 34 ALT 21 alkaline phosphatase 55 ammonia 29 Review of Systems REVIEW OF SYSTEMS: CARDIOPULMONARY: No chest pain or shortness of breath. Gastrointestinal: Burning sensation in epigastric region, no associated abdominal pain. No nausea or vomiting. No hematemesis, coffee-ground emesis. No rectal bleeding, or melena. GENITOURINARY: No dysuria or hematuria. MUSCULOSKELETAL: Reports normal range of motion., Joint pain. SKIN: No rashes. No jaundice. ENDOCRINE: No chills, fevers. No excessive weight gain or loss. No polydipsia or polyuria. PSYCHIATRIC: Unremarkable. NEUROLOGY: Change in mental status and confusion prior to admission. Denies dizziness, headache. ENT: Vision unremarkable. CONSTITUTIONAL: No recent weight loss. No fever, chills, night sweats. 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 History of Any Multi-Drug Resistant Organisms: None Reported Past Surgical History: Appendectomy, Cardiac Ablation, Cholecystectomy, Heart Catheterization, Orthopedic Surgery, Pacemaker Additional Past Surgical History / Comment(s): 08/30/20 TURP, laparotomy for ulcer repair/partial gastrectomy, hemorrhoidectomy, colonoscopies, EGDs, bilateral cataract removals, skin cancer removed from face, occipital nerve injections. Fall with R HIP Fx with Sx repair on 04/15/21 Past Anesthesia/Blood Transfusion Reactions: No Reported Reaction Type of Cardiac Device: Permanent Pacemaker Device Placement Date:: 2013 Past Psychological History: No Psychological Hx Reported Smoking Status: Former smoker Past Alcohol Use History: None Reported Past Drug Use History: None Reported - Past Family History Father Family Medical History: CVA/TIA Additional Family Medical History / Comment(s): Father had TIAs. He passed at the age of 82 yrs. Mother Family Medical History: Diabetes Mellitus Additional Family Medical History / Comment(s): AT AGE 76. Medications and Allergies Home Medications Medication Instructions Recorded Confirmed Type Apixaban [Eliquis] 5 mg PO BID 05/20/17 06/15/21 History Acetaminophen Tab [Tylenol] 650 mg PO Q6H PRN 03/04/21 06/15/21 History Amiodarone [Cordarone] 200 mg PO BID@0800,199906/15/21 06/15/21 History Fluticasone/Vilanterol [Breo 1 puff PO RT-DAILY 06/15/21 06/15/21 History Ellipta 100-25 Mcg Inhaler] Folic Acid 1 mg PO DAILY 06/15/21 06/15/21 History Lactulose 30 gm PO TID 06/15/21 06/15/21 History Metoprolol Succinate (ER) [Toprol 50 mg PO DAILY 06/15/21 06/15/21 History Xl] Multivitamins, Thera [Multivitamin 1 tab PO DAILY 06/15/21 06/15/21 History (formulary)] Omeprazole 20 mg PO DAILY 06/15/21 06/15/21 History Tamsulosin [Flomax] 0.4 mg PO DAILY 06/15/21 06/15/21 History Thiamine [Vitamin B-1] 100 mg PO DAILY 06/15/21 06/15/21 History Allergies Allergy/AdvReac Type Severity Reaction Status Date / Time sulfamethoxazole Allergy Unknown Verified 06/15/21 16:40 [From Bactrim] temazepam [From Restoril] Allergy Unknown Verified 06/15/21 16:40 trimethoprim [From Bactrim] Allergy Unknown Verified 06/15/21 16:40 verapamil Allergy Unknown Verified 06/15/21 16:40 codeine AdvReac Intermediate Hallucinati Verified 06/15/21 16:40 ons atorvastatin [From Lipitor] AdvReac Nausea & Verified 06/15/21 16:40 Vomiting prednisone AdvReac agitated Verified 06/15/21 16:40 Physical Exam Vitals: Vital Signs Temp Pulse Resp BP Pulse Ox 06/18/21 12:38 97.9 F 63 18 113/61 97 06/18/21 09:25 93 L 06/18/21 08:28 97.8 F 63 18 123/63 97 06/18/21 04:00 98.0 F 60 18 140/62 94 L 06/18/21 02:00 54 L 18 06/18/21 00:00 98.3 F 54 L 18 157/72 92 L 06/17/21 20:00 98.1 F 55 L 18 147/65 96 06/17/21 19:07 60 151/68 93 L 06/17/21 15:43 98.1 F 80 18 133/77 98 06/17/21 14:31 18 Intake and Output 06/17/21 06/18/21 06/18/21 22:59 06:59 14:59 Intake Total 0 Balance 0 Intake: Oral 0 Other: Voiding Method Diaper Diaper Diaper # Voids 1 2 Weight 60.5 kg General appearance: The patient is alert, oriented, appears in no acute distress. HET: Head is normocephalic and atraumatic. Conjunctiva pink. Sclera anicteric. Neck: Supple without lymphadenopathy. Trachea midline. Heart: S1 S2. Regular rate and rhythm. Lungs: Clear to auscultation. Abdomen: Soft, nontender, nondistended with bowel sounds. No guarding or rigidity. Skin: No rashes. No jaundice. Extremities: Normal skin color and turgor. No pedal edema. Neurological: No focal deficits. Alert and oriented x3. Results CBC & Chem 7: 06/18/21 06:15 06/18/21 06:15 Labs: Abnormal Lab Results - Last 24 Hours (Table) 11/06/17/21 06/18/21 Range/Units 20:13 20:13 06:15 RBC 4.18 L 4.03 L (4.30-5.90) m/uL Hgb 12.6 L 12.1 L (13.0-17.5) gm/dL Hct 37.2 L 36.0 L (39.0-53.0) % Plt Count 99 L 101 L (150-450) k/uL Lymphocytes # 0.9 L (1.0-4.8) k/uL PT 14.1 H (9.0-12.0) sec INR 1.4 H (<1.2) Sodium (137-145) mmol/L Potassium (3.5-5.1) mmol/L Glucose (74-99) mg/dL Calcium (8.4-10.2) mg/dL Total Bilirubin (0.2-1.3) mg/dL C-Reactive Protein (<1.0) mg/dL Total Protein (6.3-8.2) g/dL Albumin (3.5-5.0) g/dL 06/18/21 Range/Units 06:15 RBC (4.30-5.90) m/uL Hgb (13.0-17.5) gm/dL Hct (39.0-53.0) % Plt Count (150-450) k/uL Lymphocytes # (1.0-4.8) k/uL PT (9.0-12.0) sec INR (<1.2) Sodium 135 L (137-145) mmol/L Potassium 3.4 L (3.5-5.1) mmol/L Glucose 100 H (74-99) mg/dL Calcium 8.3 L (8.4-10.2) mg/dL Total Bilirubin 2.1 H (0.2-1.3) mg/dL C-Reactive Protein 1.9 H (<1.0) mg/dL Total Protein 5.1 L (6.3-8.2) g/dL Albumin 2.6 L (3.5-5.0) g/dL Microbiology - Last 24 Hours (Table) 06/15/21 16:42 Blood Culture - Preliminary Blood No Growth after 48 hours 06/15/21 16:44 Blood Culture - Preliminary Blood No Growth after 48 hours Assessment and Plan (1) Hyperammonemia Narrative/Plan: 89-year-old male who was recently hospitalized for altered mental status who was noted to have elevated ammonia level. At that time elevation in ammonia was suggested likely related to underlying liver disease. Again patient was readmitted with altered mental status changes and noted to have pneumonia on admission of 202. The patient was discharged recently to a [facility] and was recommended to continue lactulose, however patient apparently had been refusing. Patient has been given lactulose 20 g 3 times a day ammonia level now normal at 29. Altered mental status changes improved. Patient's family is at the bedside and states that they were unsure if he was actually getting the medication well at the rehab. Patient's denying any abdominal pain, nausea, or vomiting. Again hyperammonia and encephalopathy weekly related to underlying liver disease. Recommendations to continue lactulose to titrate to have 2-3 bowel movements daily. This was discussed with both the patient and his daughter. was discussed with the patient and his family importance of continuing lactulose and that likely patient has underlying liver disease possible cirrhosis of the liver however further workup is not indicated at the patient's age as treatment plan will not change. Current Visit: Yes Status: Acute Code(s): E72.20 - DISORDER OF UREA CYCLE METABOLISM, UNSPECIFIED SNOMED Code(s): 2701962 Plan: 1. Continue lactulose, titrate to have 2-3 bowel movements daily. This was discussed with both patient and his daughter who was at the bedside. 2. Continue symptomatic and supportive care 3. 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 No further workup indicated. 4. Continue medical management 5. Patient is cleared by gastroenterology for discharge Thank you for this consultation, we will continue to follow Dr. Jose Olsen I agree with the dictator's note, documented as a scribe by Prudence Morse.
--- NOTE | 2021-06-18 15:34 | P.PN ---
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 Last known well was 8 AM this morning. Patient is normally alert and oriented 4 and able to interact and uses all 4 extremities without issue. Patient has been mute since this time, is not moving his left upper left lower extremity, there is minimal movement of the right upper and right lower extremities. It is progressively g jasiel worse and he called EMS to the patient evaluated. He was recently worked up for possible stroke and was negative. Patient is unable to provide any further history at this time. Code stroke was activated. Patient was taken to CT scanner for imaging. --Brain CT was remarkable for no acute intracranial abnormality. There is chronic small vessel disease. There is chronic atrophy. CTA shows atherosclerotic disease. There is focal moderate stenosis of the proximal V4 segment of the right vertebral artery otherwise no large vessel intracranial arterial occlusion or significant stenosis. 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 Follow-up CT angiogram is recommended. ED physician spoke with the neuro life care planner process automation engineer. Patient is outside the TPA window. There is no significant occlusion to pursue with thrombectomy. 06/17/2021 Patient is seen and evaluated in room with and son at bedside; family is very concerned about repeated episodes of hyperammonemia; did report patient was receiving lactulose twice daily in ECF with concerns about ammonia level shooting up despite being treated; discussion about possible etiology of hyperammonemia discussed with patient's family with recommendations for outpatient follow-up with GI; according to patient's son, patient has been seen by Dr. Moy from gastroenterology and has been told that next step In evaluation would be liver biopsy to rule out liver cirrhosis and patient and family were told that patient is a poor candidate for such procedure due to age and complic ated medical history; patient's son is insistent that an infectious etiology is underlying hyperammonemia and wants patient to be treated with antibiotics; patient's family wouldn't clean the patient was placed on IV Rocephin at time of admission for a possible UTI which has been discontinued due to negative urine culture; due to patient's family's insistence that infectious etiologies at the bottom of repeated hospitalization, consultation with infectious diseases recommended and family is agreeable Son also notes that he wants patient to be on IV fluids since he is getting dehydrated due to receiving lactulose; stable labs were discussed with family; patient will be started on slow IV fluid hydration At this time family is agreeable on continuing lactulose at a twice a day dosing with daily monitoring of ammonia levels to adjust lactulose to an optimal dose 06/18/2021 Patient is clinically doing well at his baseline. Patient's ammonia has come down, patient will be evaluated by physical medicine and rehabilitation for possible inpatient rehab placement if patient doesn't qualify patient will be discharged back to subacute rehabitation. Patient probably has underlying the liver disease with elevated INR of 1.4. Patient doesn't have any evidence of infection at this time antibiotics were discontinued. I had lengthy discussion with the family members regarding overall care of the patient. Constitutional: Denied any fatigue denied any fever. Cardio vascular: denied any chest pain, palpitations Gastrointestinal denied any nausea vomiting Pulmonary: Denied any shortness of breath cough Neurologic denied any new focal deficits All inpatient medications were reviewed and appropriate changes in these medications as dictated in the interval history and assessment and plan. PHYSICAL EXAMINATION: GENERAL: The patient is alert, elderly frail male not in any acute distress. Well developed, well nourished. HEENT: Pupils are round and equally reacting to light. EOMI. No scleral icterus. No conjunctival pallor. Normocephalic, atraumatic. No pharyngeal erythema. No thyromegaly. CARDIOVASCULAR: S1 and S2 present. No murmurs, rubs, or gallops. PULMONARY: Chest is clear to auscultation, no wheezing or crackles. ABDOMEN: Soft, nontender, nondistended, normoactive bowel sounds. No palpable organomegaly. MUSCULOSKELETAL: No joint swelling or deformity. EXTREMITIES: No cyanosis, clubbing, or pedal edema. NEUROLOGICAL: Gross neurological examination did not reveal any focal deficits. Generalized weakness SKIN: No rashes. Assessment and plan Hepatic encephalopathy: Improved. Mental status improved [place]-underlying cirrhosis etiology of which is not clear -Underlying cirrhosis etiology of which is unknown -Ruled out cerebrovascular accident -Chronic A. fib presently rate controlled patient will be resumed on anticoagulation -Benign prostatic hypertrophy -COPD without any acute exacerbation Objective - Vital Signs Vital signs: Vital Signs Temp 97.9 F 06/18/21 12:38 Pulse 63 06/18/21 12:38 Resp 18 06/18/21 14:00 BP 113/61 06/18/21 12:38 Pulse Ox 97 06/18/21 12:38 Intake & Output 06/17/21 06/18/21 06/18/21 18:59 06:59 18:59 Intake Total 0 0 100 Balance 0 0 100 Weight 60.5 kg Intake: Oral 0 0 100 Other: Voiding Method Indwelling Catheter Diaper Diaper # Voids 2 - Labs CBC & Chem 7: 06/18/21 06:15 06/18/21 06:15 Labs: Abnormal Lab Results - Last 24 Hours (Table) 06/17/21 06/17/21 06/18/21 Range/Units 20:13 20:13 06:15 RBC 4.18 L 4.03 L (4.30-5.90) m/uL Hgb 12.6 L 12.1 L (13.0-17.5) gm/dL Hct 37.2 L 36.0 L (39.0-53.0) % Plt Count 99 L 101 L (150-450) k/uL Lymphocytes # 0.9 L (1.0-4.8) k/uL PT 14.1 H (9.0-12.0) sec INR 1.4 H (<1.2) Sodium (137-145) mmol/L Potassium (3.5-5.1) mmol/L Glucose (74-99) mg/dL Calcium (8.4-10.2) mg/dL Total Bilirubin (0.2-1.3) mg/dL C-Reactive Protein (<1.0) mg/dL Total Protein (6.3-8.2) g/dL Albumin (3.5-5.0) g/dL 06/18/21 Range/Units 06:15 RBC (4.30-5.90) m/uL Hgb (13.0-17.5) gm/dL Hct (39.0-53.0) % Plt Count (150-450) k/uL Lymphocytes # (1.0-4.8) k/uL PT (9.0-12.0) sec INR (<1.2) Sodium 135 L (137-145) mmol/L Potassium 3.4 L (3.5-5.1) mmol/L Glucose 100 H (74-99) mg/dL Calcium 8.3 L (8.4-10.2) mg/dL Total Bilirubin 2.1 H (0.2-1.3) mg/dL C-Reactive Protein 1.9 H (<1.0) mg/dL Total Protein 5.1 L (6.3-8.2) g/dL Albumin 2.6 L (3.5-5.0) g/dL Microbiology - Last 24 Hours (Table) 06/15/21 16:42 Blood Culture - Preliminary Blood No Growth after 48 hours 06/15/21 16:44 Blood Culture - Preliminary Blood No Growth after 48 hours
[2021-06-18] MEDS: APIXABAN 2.5 MG TABLET PO SCH (20:03)
--- NOTE | 2021-06-18 22:30 | PN ---
PROGRESS NOTE DATE OF SERVICE: 06/18/2021 REASON FOR FOLLOWUP: Hyperammonemia and a question of infection. INTERVAL HISTORY: The patient is afebrile. The patient mentioned he is not feeling that good, but he was unable to pinpoint if anything specifically was bothering him. The patient denies having any URI symptoms. No chest pain, shortness of breath or cough. No abdominal pain or diarrhea. PHYSICAL EXAMINATION: Blood pressure is 110/67, pulse of 73, temperature 98.0. He is 98% on room air. General description is an elderly male lying in bed in no distress. Respiratory system: Unlabored breathing, clear to auscultation anteriorly. No wheeze or crackle. Heart S1, S2. Regular rate and rhythm. Abdomen soft, no tenderness. No guarding or rigidity. Extremities no edema of the feet. LABS: Hemoglobin is 12.1, white count 5.6, BUN of 14, creatinine 0.79. Procalcitonin is 0.07. CRP 1.9. Repeat urine was requested but not done. Blood cultures were obtained which are currently pending. DIAGNOSTIC IMPRESSION AND PLAN: Patient with admission to hospital with weakness and lethargy. This patient did have an elevated ammonia level. The patient did have mildly positive urine on admission. However, cultures were negative. Patient did not have any fever during this admission. White count is normal. CRP is only 1.9. Procalcitonin is normal. Clinically doubt any evidence of bacterial infection and recommend no antibiotic at this point. Workup of underlying hyperammonemia per GI and services. Family at the bedside. Their questions were answered. MMODL / IJN: [id number] /
[2021-06-19] MEDS: PANTOPRAZOLE 40 MG TABLET PO SCH (05:45)
--- NOTE | 2021-06-19 05:56 | P.CONS ---
History of Present Illness - Chief Complaint Medical debility - History of Present Illness I had the opportunity to see patient for inpatient rehab consultation with regard to medical debility. Patient admitted to [facility] June 15 with mental status change and noted hyperammonia and encephalopathy. Seen by neurology, Dr. Robin, for the encephalopathy. Seen by Dr. Jose Olsen for the hyperammonia. Note head CT demonstrated deep white matter change and periventricular change. Chest x-ray with cardiomegaly and mild pleural effusions. CT angiogram demonstrated right and left common carotid stenosis less than 40%. Started therapies. Speech therapy assess swallow and allow chopped and thin liquids. OT reports minimal assistance for upper dressing, maximal assistance for lower dressing and bathing and total assistance for toileting. Moderate assistance functional debility and transfers. PT reports minimal assistance for bed mobility moderate assist for transfers and gait 16 feet, no device. Previous functional history as elicited from patient: 89-year-old right-handed white male who is long term to floor home with . Both retired. 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 Patient receives assistance for sitdown shower, dressing and gait with roller walker. PCP Dr. Ortiz. Review of Systems Review of systems: ENT: Denies sneezes or discharge. Eyes: Denies discharge or photophobia. Cardiac: Denies chest pain or palpitation. Pulmonary: Denies cough or shortness of breath. Gastrointestinal: Denies nausea, emesis, constipation, diarrhea. Genitourinary: Denies discharge or frequency. Musculoskeletal: Denies muscle or bone aches. Neurologic: Confusion and perseveration as well as generalized weakness. Endocrine: Denies shakes or sweats. Oncology: Denies cancers. Dermatologic: Denies rash, itching, pruritus. ALLERGY/immunology: Denies sneezes, rashes. Past Medical History Past Medical History: Unable to Obtain, Atrial Fibrillation, Cancer, COPD, CVA/TIA, GERD/Reflux, Hyperlipidemia, Pneumonia Additional Past Medical History / Comment(s): 06/2020 bacterial pneumonia/enceph alopathy/urinary retention pt states d/t a medication, UTI, BPH/surgery, TIA, occipital neuralgia, PUD with surgery, occasional dysphagia, hypotension, hyperlipidemia but pt does not tolerate statins, SSS/AV node disease, 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 History of Any Multi-Drug Resistant Organisms: None Reported Past Surgical History: Appendectomy, Cardiac Ablation, Cholecystectomy, Heart Catheterization, Orthopedic Surgery, Pacemaker Additional Past Surgical History / Comment(s): 08/30/20 TURP, laparotomy for ulcer repair/partial gastrectomy, hemorrhoidectomy, colonoscopies, EGDs, bilateral cataract removals, skin cancer removed from face, occipital nerve inj ections. Fall with R HIP Fx with Sx repair on 04/15/21 Past Anesthesia/Blood Transfusion Reactions: No Reported Reaction Type of Cardiac Device: Permanent Pacemaker Device Placement Date:: 2013 Past Psychological History: No Psychological Hx Reported Smoking Status: Former smoker Past Alcohol Use History: None Reported Past Drug Use History: None Reported - Past Family History Father Family Medical History: CVA/TIA Additional Family Medical History / Comment(s): Father had TIAs. He passed at the age of 82 yrs. Mother Family Medical History: Diabetes Mellitus Additional Family Medical History / Comment(s): AT AGE 76. Medications and Allergies Home Medications Medication Instructions Recorded Confirmed Type Apixaban [Eliquis] 5 mg PO BID 05/20/17 06/15/21 History Acetaminophen Tab [Tylenol] 650 mg PO Q6H PRN 03/04/21 06/15/21 History Amiodarone [Cordarone] 200 mg PO BID@0800,199906/15/21 06/15/21 History Fluticasone/Vilanterol [Breo 1 puff PO RT-DAILY 06/15/21 06/15/21 History Ellipta 100-25 Mcg Inhaler] Folic Acid 1 mg PO DAILY 06/15/21 06/15/21 History Lactulose 30 gm PO TID 06/15/21 06/15/21 History Metoprolol Succinate (ER) [Toprol 50 mg PO DAILY 06/15/21 06/15/21 History Xl] Multivitamins, Thera [Multivitamin 1 tab PO DAILY 06/15/21 06/15/21 History (formulary)] Omeprazole 20 mg PO DAILY 06/15/21 06/15/21 History Tamsulosin [Flomax] 0.4 mg PO DAILY 06/15/21 06/15/21 History Thiamine [Vitamin B-1] 100 mg PO DAILY 06/15/21 06/15/21 History Allergies Allergy/AdvReac Type Severity Reaction Status Date / Time sulfamethoxazole Allergy Unknown Verified 06/15/21 16:40 [From Bactrim] temazepam [From Restoril] Allergy Unknown Verified 06/15/21 16:40 trimethoprim [From Bactrim] Allergy Unknown Verified 06/15/21 16:40 verapamil Allergy Unknown Verified 06/15/21 16:40 codeine AdvReac Intermediate Hallucinati Verified 06/15/21 16:40 ons atorvastatin [From Lipitor] AdvReac Nausea & Verified 06/15/21 16:40 Vomiting prednisone AdvReac agitated Verified 06/15/21 16:40 Physical Exam Vitals: Vital Signs Temp Pulse Resp BP Pulse Ox 06/19/21 04:00 98 F 55 L 18 121/65 93 L 06/19/21 02:00 57 L 18 06/19/21 00:00 98.2 F 57 L 18 134/61 96 06/18/21 20:00 98.3 F 60 18 119/59 96 06/18/21 15:47 98.0 F 66 18 110/67 98 06/18/21 14:00 18 06/18/21 12:38 97.9 F 63 18 113/61 97 06/18/21 09:25 93 L 06/18/21 08:28 97.8 F 63 18 123/63 97 Intake and Output 06/18/21 06/18/21 06/19/21 14:59 22:59 06:59 Intake Total 100 Output Total 75 Balance 100 -75 Intake: Oral 100 Output: Urine 75 Other: Voiding Method Diaper Diaper Diaper # Voids 0 # Bowel Movements 1 Weight 61 kg Skin: Atrophic, intact. General: Medium build and comfortable appearance. Head: Normocephalic, atraumatic. Eyes: Symmetric. Pupils equal round. Ears: Symmetric. Hearing within normal limits. Mouth: Clear. Neck: Supple. Carotid without bruit. Cardiac: Regular rate and rhythm. Lungs: Clear anteriorly and posteriorly. Abdomen: Soft active nontender. Extremities: Normal tone. Neurological: Mental status: Alert, cooperative, pleasant, confused, perseverative. Cranial nerves: Symmetric facial tone and trapezius. Motor: Active movement all 4 limbs. Sensation: Intact throughout. DTRs: Symmetric and equal throughout. Mobility: Sits and stands with assistance for safety. Results CBC & Chem 7: 06/18/21 06:15 06/18/21 06:15 Labs: Abnormal Lab Results - Last 24 Hours (Table) 06/18/21 06/18/21 Range/Units 06:15 06:15 RBC 4.03 L (4.30-5.90) m/uL Hgb 12.1 L (13.0-17.5) gm/dL Hct 36.0 L (39.0-53.0) % Plt Count 101 L (150-450) k/uL Lymphocytes # 0.9 L (1.0-4.8) k/uL Sodium 135 L (137-145) mmol/L Potassium 3.4 L (3.5-5.1) mmol/L Glucose 100 H (74-99) mg/dL Calcium 8.3 L (8.4-10.2) mg/dL Total Bilirubin 2.1 H (0.2-1.3) mg/dL C-Reactive Protein 1.9 H (<1.0) mg/dL Total Protein 5.1 L (6.3-8.2) g/dL Albumin 2.6 L (3.5-5.0) g/dL Microbiology - Last 24 Hours (Table) 06/15/21 16:44 Blood Culture - Preliminary Blood No Growth after 72 hours 06/15/21 16:42 Blood Culture - Preliminary Blood No Growth after 72 hours Assessment and Plan (1) Altered mental status Current Visit: Yes Status: Acute Code(s): R41.82 - ALTERED MENTAL STATUS, UNSPECIFIED SNOMED Code(s): 919643572 (2) Hepatic encephalopathy Current Visit: Yes Status: Acute Code(s): K72.90 - HEPATIC FAILURE, UNSPECIFIED WITHOUT COMA SNOMED Code(s): 23828828 (3) Ataxia Current Visit: No Status: Acute Code(s): R27.0 - ATAXIA, UNSPECIFIED SNOMED Code(s): 09874250 (4) Atrial fibrillation with RVR Current Visit: No Status: Acute Code(s): I48.91 - UNSPECIFIED ATRIAL FIBRILLATION SNOMED Code(s): 724415429248310 Plan: Comments and plan: At this time PT, OT, CONVEYOR TENDER ongoing. Safety concerns noted. Must really determine 's goals for return to home in order to determine whether or not they can be achieved an inpatient rehab. Otherwise would appear to be a rehab candidate.
[2021-06-19] MEDS: SYMBICORT 80-4.5 MCG INHALER INHALATION SCH ×2 (08:25→19:58)
[2021-06-19] MEDS: LACTULOSE 20 GM/30 ML CUP PO SCH ×3 (08:51→23:31)
[2021-06-19] MEDS: TAMSULOSIN 0.4 MG CAP.ER.24H PO SCH (08:51)
[2021-06-19] MEDS: APIXABAN 2.5 MG TABLET PO SCH ×2 (08:51→21:02)
[2021-06-19] MEDS: AMIODARONE 200 MG TAB PO SCH ×2 (08:51→21:02)
[2021-06-19] MEDS: METOPROLOL SUCCINATE (ER) 50 MG TAB.ER.24H PO SCH (08:51)
[2021-06-19] MEDS: THIAMINE 100 MG TAB PO SCH (08:51)
[2021-06-19] MEDS: FOLIC ACID 1 MG TAB PO SCH (08:51)
--- NOTE | 2021-06-19 08:52 | P.CONS ---
History of Present Illness - Reason for Consult Consult date: 06/17/21 elevated ammonia ?infection Requesting physician: Ángel Newman - Chief Complaint weakness x few days - History of Present Illness History of present illness : Patient is 89-year male who was brought into the hospital on 06/15/2021 for evaluation of mental status changes and strokelike symptoms patient was last known well as of 8 in the morning of the day of presentation the hospital patient has been reviewed since this time and not moving his extremities EMS was called who brought the patient to the hospital patient subsequently was evaluated by neurology services and has been ruled out for acute CVA patient on presentation to the hospital was afebrile and no fever Recorded subsequently patient did have a normal white count with no left shift patient did have a normal kidney function liver enzymes are normal patient did have a normal lactic acid patient did have an elevated ammonia level of 139 subsequently came down to 28 ALT was up to 39 yesterday morning repeat is 21 patient did have a mildly positive UA however mostly hematuria urine culture negative he was initially given dose with IV subsequent discontinued with some concern about the patient having an infection this infectious disease consultation was requested patient is currently afebrile the patient will decrease to the hospital patient complains of feeling weak but denies having any chest pain shortness of breath or cough he denies any nausea no vomiting no abdominal pain no diarrhea patient did have a indwelling [place] catheter because of retention and did have slight hematuria apparently the patient has pull on his catheter Review of system: CONSTITUTIONAL: Positive for weakness denies fever. EYES: No complaint. ENT: No complaint. RESPIRATORY: No complaint. CARDIOVASCULAR: No complaint. GENITOURINARY: As per history of present illness. GASTROINTESTINAL: No complaint. MUSCULOSKELETAL: No complaint. INTEGUMENTARY: No complaint. PSYCHOLOGIC: No complaint. ENDOCRINE: No complaint. NEUROLOGIC: No complaint. Past medical history : Reviewed, documented below Past surgical history : Reviewed, documented below Social history: Reviewed, documented below Medications: Reviewed, as documented below EXAMINATION: Vital sigans= Reviewed and documented below GENERAL DESCRIPTION: Elderly male lying in bed, no distress. No tachypnea or accessory muscle of respiration use. HEENT: Shows Pallor , no scleral icterus. Oral mucous membrane is dry. NECK: Trachea central, no thyromegaly. LUNGS: Unlabored breathing. Clear to auscultation anteriorly. No wheeze or scrap metal burner ckle. HEART: S1, S2, regular rate and rhythm. ABDOMEN: Soft, no tenderness , guarding or rigidity EXTREMITIES: No edema of feet. SKIN: No rash, no masses palpable. NEUROLOGICAL: The patient is awake, alert, oriented x3, mood and affect normal. LABS AND RADIOLOGY: Reviewed results see below Assessment : Patient presented to hospital with weakness mental status changes in this patient noticed to have a significant elevated ammonia level that seem to have normalized very quickly in this patient who did not have any fever or elevated white count did have a risk factor for UTI because of his prostate problem however urine has been mostly hematuria and culture has been negative clinically doubt infectious etiology this was explained in detail to the son at the bedside Plan: 1-we will request for repeat blood cultures and urine culture as well as CRP and procalcitonin 2-gentle IV fluid 3-no need for systemic antibiotic therapy We will follow on clinical condition and cultures to further adjust medication if needed Thank you for this consultation we will follow the patient along with you Past Medical History Past Medical History: Unable to Obtain, Atrial Fibrillation, Cancer, COPD, CVA/TIA, GERD/Reflux, Hyperlipidemia, Pneumonia Additional Past Medical History / Comment(s): 06/2020 bacterial pneumonia/encephalopathy/urinary retention pt states d/t a medication, UTI, BPH/surgery, TIA, occipital neuralgia, PUD with surgery, occasional dysphagia, hypotension, hyperlipidemia but pt does not tolerate statins, SSS/AV node disease, 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 History of Any Multi-Drug Resistant Organisms: None Reported Past Surgical History: Appendectomy, Cardiac Ablation, Cholecystectomy, Heart Catheterization, Orthopedic Surgery, Pacemaker Additional Past Surgical History / Comment(s): 08/30/20 TURP, laparotomy for ulcer repair/partial gastrectomy, hemorrhoidectomy, colonoscopies, EGDs, bilateral cataract removals, skin cancer removed from face, occipital nerve injections. Fall with R HIP Fx with Sx repair on 04/15/21 Past Anesthesia/Blood Transfusion Reactions: No Reported Reaction Type of Cardiac Device: Permanent Pacemaker Device Placement Date:: 2013 Past Psychological History: No Psychological Hx Reported Smoking Status: Former smoker Past Alcohol Use History: None Reported Past Drug Use History: None Reported - Past Family History Father Family Medical History: CVA/TIA Additional Family Medical History / Comment(s): Father had TIAs. He passed at the age of 82 yrs. Mother Family Medical History: Diabetes Mellitus Additional Family Medical History / Comment(s): AT AGE 76. Medications and Allergies Home Medications Medication Instructions Recorded Confirmed Type Apixaban [Eliquis] 5 mg PO BID 05/20/17 06/15/21 History Acetaminophen Tab [Tylenol] 650 mg PO Q6H PRN 03/04/21 06/15/21 History Amiodarone [Cordarone] 200 mg PO BID@08,199906/15/21 06/15/21 History Fluticasone/Vilanterol [Breo 1 puff PO RT-DAILY 06/15/21 06/15/21 History Ellipta 100-25 Mcg Inhaler] Folic Acid 1 mg PO DAILY 06/15/21 06/15/21 History Lactulose 30 gm PO TID 06/15/21 06/15/21 History Metoprolol Succinate (ER) [Toprol 50 mg PO DAILY 06/15/21 06/15/21 History Xl] Multivitamins, Thera [Multivitamin 1 tab PO DAILY 06/15/21 06/15/21 History (formulary)] Omeprazole 20 mg PO DAILY 06/15/21 06/15/21 History Tamsulosin [Flomax] 0.4 mg PO DAILY 06/15/21 06/15/21 History Thiamine [Vitamin B-1] 100 mg PO DAILY 06/15/21 06/15/21 History Allergies Allergy/AdvReac Type Severity Reaction Status Date / Time sulfamethoxazole Allergy Unknown Verified 06/15/21 16:40 [From Bactrim] temazepam [From Restoril] Allergy Unknown Verified 06/15/21 16:40 trimethoprim [From Bactrim] Allergy Unknown Verified 06/15/21 16:40 verapamil Allergy Unknown Verified 06/15/21 16:40 codeine AdvReac Intermediate Hallucinati Verified 06/15/21 16:40 ons atorvastatin [From Lipitor] AdvReac Nausea & Verified 06/15/21 16:40 Vomiting prednisone AdvReac agitated Verified 06/15/21 16:40 Physical Exam Vitals: Vital Signs Temp Pulse Resp BP Pulse Ox 06/17/21 20:00 98.1 F 55 L 18 147/65 96 06/17/21 19:07 60 151/68 93 L 06/17/21 15:43 98.1 F 80 18 133/77 98 06/17/21 14:31 18 06/17/21 12:00 97.8 F 78 18 140/80 97 06/17/21 08:00 98.0 F 87 18 139/78 98 06/17/21 04:00 98.5 F 69 16 147/72 93 L 06/17/21 01:11 67 06/16/21 23:44 97.9 F 67 18 153/70 92 L Intake and Output 06/17/21 06/17/21 06/17/21 06:59 14:59 22:59 Intake Total 0 0 Output Total 500 Balance -500 0 0 Intake: Oral 0 0 Output: Urine 500 Other: Voiding Method Indwelling Catheter Indwelling Catheter Diaper # Bowel Movements 1 Weight 60.5 kg Results CBC & Chem 7: 06/18/21 06:15 06/18/21 06:15 Labs: Abnormal Lab Results - Last 24 Hours (Table) 06/17/21 06/17/21 06/17/21 Range/Units 07:44 20:13 20:13 RBC 4.18 L (4.30-5.90) m/uL Hgb 12.6 L (13.0-17.5) gm/dL Hct 37.2 L (39.0-53.0) % Plt Count 99 L (150-450) k/uL PT 14.1 H (9.0-12.0) sec INR 1.4 H (<1.2) Ammonia 39 H (<30) umol/L Microbiology - Last 24 Hours (Table) 06/15/21 16:42 Blood Culture - Preliminary Blood No Growth after 48 hours 06/15/21 16:44 Blood Culture - Preliminary Blood No Growth after 48 hours 06/15/21 16:49 Urine Culture - Final Urine,Voided
[2021-06-19 13:14] VITALS: BMI 19.8
--- NOTE | 2021-06-19 15:05 | P.DS ---
Providers Date of admission: 06/15/21 16:49 Attending physician: Ángel Newman MD Consults: 06/15/21 16:44 Consult Physician Routine Consulting Provider: Arie Bravo Consult Reason/Comments: CVA vs. Stroke vs. Hepatic encephalopathy Do you want consulting provider notified?: Yes 06/17/21 15:17 Consult Physician Routine Consulting Provider: Sid Hyatt Consult Reason/Comments: Hyperammonemia; r/o infectious etiology Do you want consulting provider notified?: Yes 06/18/21 10:31 Consult Physician Routine Consulting Provider: Wilber Garcia Consult Reason/Comments: eval for IPR Do you want consulting provider notified?: Yes 06/18/21 10:34 Consult Physician Routine Consulting Provider: Lynda Olsen Consult Reason/Comments: elevated ammonia Do you want consulting provider notified?: Yes Primary care physician: Francie Quiñones Hospital Course: Final Diagnosis -Hyperammonia and 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 fib presently rate controlled patient will be resumed on anticoagulation -Benign prostatic hypertrophy -COPD without any acute exacerbation Discharge Disposition Patient is cleared medically for discharge to rehab today. Hospital Course This is a pleasant 89-year-old male who presented to the with altered mental status and strokelike symptoms that started 3 days prior to admission. Presenting symptoms include mute on the day of admission, not moving his left upper or left lower extremity, minimal movement of right upper and right lower extremities has been getting progressively worse and EMS was called to evaluate the patient. 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 On admission patient was found to have elevated ammonia level 202. He was also recently hospitalized as well for acute confusion with elevated ammonia level and was discharged on lactulose however the patient is refusing of lactulose outpatient as he was concerned about incontinence. During this hospital stay he was treated with lactulose 20 g 3 times a day and ammonia level is now normal at 29. Brain CT is admission was negative for any acute intracranial abnormality. There is chronic small vessel disease. There is chronic atrophy. CTA shows atherosclerotic disease. There is no focal moderate stenosis of approximately 4 segments of the right vertebral artery otherwise no large vessel intracranial arterial occlusion or significant stenosis. 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 Follow-up CTA angiogram is recommended. Patient is out of the window for TPA and there is no significant occlusion to pursue with thrombectomy. His mental status has improved and he is alert and oriented 3 patient was at rehab recently and family is also unsure if the patient was given the medication. Patient is agreeable to the lactulose. Currently patient is den kisha any abdominal pain, nausea vomiting. Patient denies any underlying liver history or, liver cirrhosis. He was evaluated GI services is recommended to continue lactulose and titrate to have 2-3 bowel movements per day. Family was updated on this plan as well. Family is also requesting patient be able to use thickener for his liquids when needed as they feel he occasionally coughs. 06/19/2021 Patient evaluated the bedside with family. There was concerns about being able to use thickener as needed for his liquids. Patient's family states they use a small amount and it helps with patient not coughing with liquids. Patient was evaluated by speech services with mesh and recommended dysphagia level III chopped with normal liquid recommendation sitting upright 90. Continue to reevaluate as needed. Recent labs show a hemoglobin of 12.1, INR 1.4 which is chronic related to his liver disease, sodium level of 135, potassium 3.4 which was replaced per protocol, glucose 100, CRP 1.9. Ammonia continues to read within normal limits at 29. Labs today show a temperature 97.8, heart rate 60, blood pressure 140/65, 95% on room air. He is cleared medically for discharge to rehab. Lungs are clear to auscultation, abdomen is soft and nontender. Focal neurological exam is negative, there is generalized weakness. Urine is still bloody due to recent trauma this admission of patient removing his bass catheter. Repeat labs tomorrow. Please see medication reconciliation for a list of current medication. Thank you for allowing us to participate in the care of this patient. Patient Condition at Discharge: Serious Plan - Discharge Summary Discharge Rx Participant: No New Discharge Prescriptions: New Lactulose [Cephulac] 20 gm PO TID ml Apixaban [Eliquis] 2.5 mg PO BID tablet Continue Tamsulosin [Flomax] 0.4 mg PO DAILY Multivitamins, Thera [Multivitamin (formulary)] 1 tab PO DAILY Fluticasone/Vilanterol [Breo Ellipta 100-25 Mcg Inhaler] 1 puff PO RT-DAILY Acetaminophen Tab [Tylenol] 650 mg PO Q6H PRN PRN Reason: Fever And/ Or Pain Thiamine [Vitamin B-1] 100 mg PO DAILY Amiodarone [Cordarone] 200 mg PO BID@ Omeprazole 20 mg PO DAILY Metoprolol Succinate (ER) [Toprol XL] 50 mg PO DAILY Folic Acid 1 mg PO DAILY Discontinued Apixaban [Eliquis] 5 mg PO BID Lactulose 30 gm PO TID Discharge Medication List Acetaminophen Tab [Tylenol] 650 mg PO Q6H PRN 03/04/21 [History] Amiodarone [Cordarone] 200 mg PO BID@06/15/21 [History] Fluticasone/Vilanterol [Breo Ellipta 100-25 Mcg Inhaler] 1 puff PO RT-DAILY 06/15/21 [History] Folic Acid 1 mg PO DAILY 06/15/21 [History] Metoprolol Succinate (ER) [Toprol XL] 50 mg PO DAILY 06/15/21 [History] Multivitamins, Thera [Multivitamin (formulary)] 1 tab PO DAILY 06/15/21 [History] Omeprazole 20 mg PO DAILY 06/15/21 [History] Tamsulosin [Flomax] 0.4 mg PO DAILY 06/15/21 [History] Thiamine [Vitamin B-1] 100 mg PO DAILY 06/15/21 [History] Apixaban [Eliquis] 2.5 mg PO BID tablet 06/19/21 [Rx] Lactulose [Cephulac] 20 gm PO TID ml 06/19/21 [Rx] Follow up Appointment(s)/Referral(s): Francie Quiñones DO [Primary Care Provider] - 1-2 days Lynda Olsen MD [STAFF PHYSICIAN] - 1 Week Ambulatory/Diagnostic Orders: Basic Metabolic Panel [LAB.AMB] Time Frame: 1 Day, Location: None Selected Discharge Disposition: TRANSFER TO SNF/ECF
--- NOTE | 2021-06-19 16:13 | P.PN ---
Subjective Progress Note Date: 06/19/21 Principal diagnosis: hyperammonia, hepatic encephalopathy 89-year-old male who came in with altered mental status with suspected hepatic encephalopathy related to underlying liver disease. Patient had hyperammonia with the D level at 202, now normal. Patient was started on lactulose and has been doing well. Patient was alert and oriented 2, son was at the bedside. Plan is for discharge today. Possible discharge to inpatient rehab as patient was seen by Dr. Garcia. No acute changes through the night. Patient denies any abdominal pain, nausea, or vomiting. Objective - Vital Signs Vital signs: Vital Signs Temp 97.8 F 06/19/21 08:50 Pulse 55 L 06/19/21 08:50 Resp 18 06/19/21 08:50 BP 125/67 06/19/21 08:50 Pulse Ox 98 06/19/21 08:50 Intake & Output 06/18/21 06/19/21 06/19/21 18:59 06:59 18:59 Intake Total 100 240 Output Total 75 Balance 100 -75 240 Weight 61 kg Intake: Oral 100 240 Output: Urine 75 Other: Voiding Method Diaper Diaper # Voids 0 # Bowel Movements 1 - Exam General appearance: The patient is alert, oriented, appears in no acute distress. HET: Head is normocephalic and atraumatic. Conjunctiva pink. Sclera anicteric. Neck: Supple without lymphadenopathy. Abdomen: Soft, nontender, nondistended with bowel sounds. No guarding or rigidity. Extremities: Normal skin color and turgor. No pedal edema Skin: No rashes, no jaundice Neurological: No focal deficits. Alert and oriented x 2. - Labs CBC & Chem 7: 06/18/21 06:15 06/18/21 06:15 Labs: Microbiology - Last 24 Hours (Table) 06/18/21 06:15 Blood Culture - Preliminary Blood No Growth after 24 hours 06/15/21 16:44 Blood Culture - Preliminary Blood No Growth after 72 hours 06/15/21 16:42 Blood Culture - Preliminary Blood No Growth after 72 hours Assessment and Plan (1) Hyperammonemia Narrative/Plan: 89-year-old male who was recently hospitalized for altered mental status who was noted to have elevated ammonia level. At that time elevation in ammonia was suggested likely related to underlying liver disease. Again patient was readmitted with altered mental status changes and noted to have pneumonia on admission of 202. The patient was discharged recently to a halfway and was recommended to continue lactulose, however patient apparently had been refusing. Patient has been given lactulose 20 g 3 times a day ammonia level now normal at 29. Altered mental status changes improved. Patient's family is at the bedside and states that they were unsure if he was actually getting the medication well at the rehab. Patient's denying any abdominal pain, nausea, or vomiting. Again hyperammonia and encephalopathy weekly related to underlying liver disease. Recommendations to continue lactulose to titrate to have 2-3 bowel movements daily. This was discussed with both the patient and his daughter. was discussed with the patient and his family importance of continuing lactulose and that likely patient has underlying liver disease possible cirrhosis of the liver however further workup is not indicated at the patient's age as treatment plan will not change. Current Visit: Yes Status: Acute Code(s): E72.20 - DISORDER OF UREA CYCLE METABOLISM, UNSPECIFIED SNOMED Code(s): 9606826 Plan: 1. Continue lactulose, titrate to have 2-3 bowel movements daily. This was discussed with patient, son and at bedside. 2. Continue symptomatic and supportive care 3. 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 No further workup indicated. 4. Continue medical management 5. Patient is cleared by gastroenterology for discharge Thank you for this consultation, we will sign off at this time. Dr. Jose Olsen I agree with the dictator's note, documented as a scribe by Prudence Morse.
--- NOTE | 2021-06-19 23:04 | PN ---
PROGRESS NOTE DATE OF SERVICE: 06/19/2021 REASON FOR FOLLOWUP: pneumonia and pneumonia and a question of infection. INTERVAL HISTORY: Patient is afebrile. The patient is currently breathing comfortably on room air. The patient denies any chest pain, shortness of breath, cough. No abdominal pain or diarrhea. PHYSICAL EXAMINATION: Blood pressure 148/56, pulse of 88, temperature 97.9. Covid 19 reveals the patient is an elderly male up in the chair in no distress. Respiratory system: Unlabored breathing, decreased breath sounds in the bases. No wheeze. Heart S1, S2. Regular rate and rhythm. LABS: Hemoglobin is 12.1, white count of 5.6, creatinine 0.79 0.7. Blood culture repeat has been negative. DIAGNOSTIC IMPRESSION AND PLAN: Patient with elevated ammonia level on admission with some mental status changes. There was question of infection. However, the patient did have extensive workup and cultures thus far have been negative. Recommend to monitor the patient closely off antibiotic therapy. Son has multiple questions. Those were answered. MMODL / IJN: [id number] /
[2021-06-20] MEDS: PANTOPRAZOLE 40 MG TABLET PO SCH (06:24)
[2021-06-20] MEDS: METOPROLOL SUCCINATE (ER) 50 MG TAB.ER.24H PO SCH (08:31)
[2021-06-20] MEDS: AMIODARONE 200 MG TAB PO SCH (08:31)
[2021-06-20] MEDS: THIAMINE 100 MG TAB PO SCH (08:31)
[2021-06-20] MEDS: FOLIC ACID 1 MG TAB PO SCH (08:31)
[2021-06-20] MEDS: TAMSULOSIN 0.4 MG CAP.ER.24H PO SCH (08:31)
[2021-06-20] MEDS: APIXABAN 2.5 MG TABLET PO SCH (08:32)
[2021-06-20] MEDS: LACTULOSE 20 GM/30 ML CUP PO SCH (08:32)
[2021-06-20 08:44] LABS: ALT 24 U/L (4-49); AST 34 U/L (17-59); African American GFR (CKD) >90 (>60 ml/min/1.73 sqM); Alkaline Phosphatase 67 U/L (38-126); Anion Gap 4 mmol/L; Blood Urea Nitrogen 10 mg/dL (9-20); Calcium 8.7 mg/dL (8.4-10.2); Carbon Dioxide 29 mmol/L (22-30); Chloride 103 mmol/L (98-107); Glucose 111 mg/dL (74-99); Magnesium 1.6 mg/dL (1.6-2.3); Non-African American GFR(CKD) 80 (>60 ml/min/1.73 sqM); Potassium 4.3 mmol/L (3.5-5.1); Sodium 136 mmol/L (137-145); Total Bilirubin 2.5 mg/dL (0.2-1.3); Total Protein 5.7 g/dL (6.3-8.2)
[2021-06-20] MEDS: SYMBICORT 80-4.5 MCG INHALER INHALATION SCH (08:57)
[2021-06-20 09:06] VITALS: BP 136/56; PULSE 88; TEMP 98.2
--- NOTE | 2021-06-20 11:25 | P.DS ---
Providers Date of admission: 06/15/21 16:49 Attending physician: Ángel Newman MD Consults: 06/15/21 16:44 Consult Physician Routine Consulting Provider: Arie Bravo Consult Reason/Comments: CVA vs. Stroke vs. 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 fib presently rate controlled patient will be resumed on anticoagulation -Benign prostatic hypertrophy -COPD without any acute exacerbation Discharge Disposition Patient is cleared medically for discharge to rehab today. Hospital Course This is a pleasant 89-year-old male who presented to the with altered mental status and strokelike symptoms that started 3 days prior to admission. Presenting symptoms include mute on the day of admission, not moving his left upper or left lower extremity, minimal movement of right upper and right lower extremities has been getting progressively worse and EMS was called to evaluate the patient. 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 On admission patient was found to have elevated ammonia level 202. He was also recently hospitalized as well for acute confusion with elevated ammonia level and was discharged on lactulose however the patient is refusing of lactulose outpatient as he was concerned about incontinence. During this hospital stay he was treated with lactulose 20 g 3 times a day and ammonia level is now normal at 29. Brain CT is admission was negative for any acute intracranial abnormality. There is chronic small vessel disease. There is chronic atrophy. CTA shows atherosclerotic disease. There is no focal moderate stenosis of approximately 4 segments of the right vertebral artery otherwise no large vessel intracranial arterial occlusion or significant stenosis. 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 Follow-up CTA angiogram is recommended. Patient is out of the window for TPA and there is no significant occlusion to pursue with thrombectomy. His mental status has improved and he is alert and oriented 3 patient was at rehab recently and family is also unsure if the patient was given the medication. Patient is agreeable to the lactulose. Currently patient is denying any abdominal pain, nausea vomiting. Patient denies any underlying liver history or, liver cirrhosis. He was evaluated GI services is recommended to continue lactulose and titrate to have 2-3 bowel movements per day. Family was updated on this plan as well. Family is also requesting patient be able to use thickener for his liquids when needed as they feel he occasionally coughs. 06/20/2021 Patient evaluated today at the bedside with family present. Discussed lactulose goal of 2-3 bowel movements per day. If patient has multiple BM's can hold 1 dose of lactulose and than begin with next scheduled dose and monitor closely. Patient will also need 1 scoop of thickener in thin liquid beverages. Family feels this helps patient when drinking liquids with his reflux symptoms. He has reflux symptoms and coughs up mucous with unthickened ice water. Patient was cleared for dysphagia chopped diet by speech therapy with thin liquids. I called and spoke with speech therapy who is okay with the recommendation of 1 scoop of thickener with thin liquid beverages. Labs today, sodium 136. Vital signs are stable. Patient is alert, oriented and appropriate. Family is agreeing with discharge to rehab today. Lungs are clear, abdomen soft and nontender. Please see medication recommendations for a list of current recommendations. Thank you for allowing us to participate in the care of this patient. Patient Condition at Discharge: Fair Plan - Discharge Summary Discharge Rx Participant: No New Discharge Prescriptions: New Lactulose [Cephulac] 20 gm PO TID ml Apixaban [Eliquis] 2.5 mg PO BID tablet Continue Tamsulosin [Flomax] 0.4 mg PO DAILY Multivitamins, Thera [Multivitamin (formulary)] 1 tab PO DAILY Fluticasone/Vilanterol [Breo Ellipta 100-25 Mcg Inhaler] 1 puff PO RT-DAILY Acetaminophen Tab [Tylenol] 650 mg PO Q6H PRN PRN Reason: Fever And/ Or Pain Thiamine [Vitamin B-1] 100 mg PO DAILY Amiodarone [Cordarone] 200 mg PO BID@ Omeprazole 20 mg PO DAILY Metoprolol Succinate (ER) [Toprol XL] 50 mg PO DAILY Folic Acid 1 mg PO DAILY Discontinued Apixaban [Eliquis] 5 mg PO BID Lactulose 30 gm PO TID Discharge Medication List Acetaminophen Tab [Tylenol] 650 mg PO Q6H PRN 03/04/21 [History] Amiodarone [Cordarone] 200 mg PO BID@06/15/21 [History] Fluticasone/Vilanterol [Breo Ellipta 100-25 Mcg Inhaler] 1 puff PO RT-DAILY 06/15/21 [History] Folic Acid 1 mg PO DAILY 06/15/21 [History] Metoprolol Succinate (ER) [Toprol XL] 50 mg PO DAILY 06/15/21 [History] Multivitamins, Thera [Multivitamin (formulary)] 1 tab PO DAILY 06/15/21 [History] Omeprazole 20 mg PO DAILY 06/15/21 [History] Tamsulosin [Flomax] 0.4 mg PO DAILY 06/15/21 [History] Thiamine [Vitamin B-1] 100 mg PO DAILY 06/15/21 [History] Apixaban [Eliquis] 2.5 mg PO BID tablet 06/19/21 [Rx] Lactulose [Cephulac] 20 gm PO TID ml 06/19/21 [Rx] Follow up Appointment(s)/Referral(s): Lynda Olsen MD [STAFF PHYSICIAN] - 1 Week Francie Quiñones DO [Primary Care Provider] - 1-2 days Ambulatory/Diagnostic Orders: Basic Metabolic Panel [LAB.AMB] Time Frame: 1 Day, Location: None Selected Activity/Diet/Wound Care/Special Instructions: Patient to have a scoop of thickener in all thin liquids, cleared by speech therapy. Family feels his helps patient and helps his reflux symptoms. Discharge Disposition: TRANSFER TO SNF/ECF
--- NOTE | 2021-06-22 12:28 | CDI ---
Documentation Clarification Form Date: 06/22/2021 12:22:21 PM From: Martin Carolina Phone: Admit Date: 06/15/2021 04:49:00 PM Patient Name: Michael Crane Visit Number: [id number] Discharge Date: 06/20/2021 01:00:00 PM ATTENTION: The Clinical Documentation Specialists (CDI) and [facility] Coding Staff appreciate your assistance in clarifying documentation. Please respond to the clarification below the line at the bottom and electronically sign. The CDI & [facility] Coding staff will review the response and follow-up if needed. Please note: Queries are made part of the Legal Health Record. If you have any questions, please contact the author of this message via ITS. Dr. Murali Srinivasan Possible UTI is noted in progress note 06/17. Treated once with IV rocephin. UTI is not noted in subsequent documentation. Clarification is requested. History/Risk Factors: hx of recurrent UTIs Clinical Indicators: AMS Treatment: Please clarify if the UTI] is: [ ] UTI confirmed, remains under treatment [ ] UTI confirmed, resolved [ ] UTI ruled out [ ] Other condition, please specify [ ] Unable to determine No UTI MTDD
== END 2021-06-20 13:00 | DRG 443 ==
LOC: EC 14:32 → 3SCARD 16:49
PROVIDERS: ADMIT Internal Medicine; ATTEND Internal Medicine
DX: K72.90 Hepatic failure, unspecified without coma (principal); E78.5 Hyperlipidemia, unspecified; I11.9 Hypertensive heart disease without heart failure; I48.0 Paroxysmal atrial fibrillation; I65.22 Occlusion and stenosis of left carotid artery; J32.2 Chronic ethmoidal sinusitis; K74.60 Unspecified cirrhosis of liver; N40.0 Benign prostatic hyperplasia without lower urinary tract symptoms; R31.0 Gross hematuria; Z66 Do not resuscitate; J44.9 Chronic obstructive pulmonary disease, unspecified; Z20.822 Contact with and (suspected) exposure to COVID-19; Z79.01 Long term (current) use of anticoagulants; Z79.82 Long term (current) use of aspirin; Z79.899 Other long term (current) drug therapy; Z83.3 Family history of diabetes mellitus; Z85.828 Personal history of other malignant neoplasm of skin; Z86.73 Personal history of transient ischemic attack (TIA), and cerebral infarction without residual deficits; Z87.11 Personal history of peptic ulcer disease; Z87.440 Personal history of urinary (tract) infections; Z87.891 Personal history of nicotine dependence; Z90.3 Acquired absence of stomach [part of]; Z95.0 Presence of cardiac pacemaker
CPT/HCPCS: 36415; 70450; 70496; 70498; 71046; 80048; 80053; 80061; 81001; 82140; 83605; 83721; 83735; 84145; 84484; 85025; 85027; 85610; 85730; 86140; 87040; 87086; 87635; 93005; 94640; 94760; 96374; 99291